=== PATIENT | female | born 1970 | race Caucasian/White ===

== ENCOUNTER 2023-06-29 11:06 | Outpatient (OUT) | payer OTHER, SELFPAY ==
[2023-06-29 12:38] LABS: Alanine Aminotransferase 16 U/L (14-59); Albumin Globulin Ratio 0.7; Albumin Level 2.9 g/dL (3.4-5.0); Alkaline Phosphatase 216 U/L (46-116); Anion Gap 13.3; Aspartate Amino Transferase 16 U/L (15-37); BUN Creatinine Ratio 18.7; Bilirubin Total 0.4 mg/dL (0.2-1.0); Calcium 8.2 mg/dL (8.5-10.1); Carbon Dioxide 24.4 mmol/L (21.0-32.0); Chloride 111 mmol/L (98-107); Chol HDL Ratio 2.2; Cholesterol 98 mg/dL (<=200); Estimated GFR (African America >60 (>=60); Estimated GFR (Non-African Ame 54 (>=60); Globulin 3.9 g/dL; Glucose 82 mg/dL (74-106); HDL Cholesterol 44 mg/dL (40-60); LDL Cholesterol Calculated 45.6 mg/dL; Potassium 3.7 mmol/L (3.5-5.1); Sodium 145 mmol/L (136-145); Total Protein 6.8 g/dL (6.4-8.2); Triglycerides 42 mg/dL (<=150); VLDL CHOLESTEROL 8.4 mg/dL
[2023-06-30 11:10] LABS: PTH, Intact 189 pg/mL (15-65)
== END 2023-06-29 11:07 | disposition home or self-care (01) ==
LOC: LAB 11:09
PROVIDERS: PCP Internal Medicine
DX: Z00.00 Encounter for general adult medical examination without abnormal findings (principal); E21.3 Hyperparathyroidism, unspecified; E55.9 Vitamin D deficiency, unspecified; E56.0 Deficiency of vitamin E; E50.9 Vitamin A deficiency, unspecified
CPT/HCPCS: 36415; 80053; 80061; 82306; 83970; 84446; 84590

== ENCOUNTER 2024-08-29 12:05 | Outpatient (OUT) | payer OTHER, SELFPAY ==
[2024-08-29 12:45] LABS: Basophils Percent Auto 0.6 % (0.2-2.0); Eosinophils Absolute Auto 0.1 10^3/uL (0.0-0.7); Eosinophils Percent Auto 1.8 % (0.9-7.0); Hematocrit 38.5 % (36.0-48.0); Hemoglobin 12.1 g/dL (12.0-16.0); Immature Granulocytes Abs Auto 0.02 10^3/uL (0.00-0.03); Immature Granulocytes Pct Auto 0.3 % (0.0-0.5); Lymphocytes Absolute Auto 2.4 10^3/uL (1.2-3.8); Lymphocytes Percent Auto 39.2 % (20.5-60.0); Mean Corpuscular HGB Conc 31.4 g/dL (29.9-35.2); Mean Corpuscular Volume 85.9 fL (81.0-99.0); Mean Platelet Volume 9.8 fL (9.5-13.5); Monocytes Absolute Auto 0.4 10^3/uL (0.3-0.8); Monocytes Percent Auto 5.8 % (1.7-12.0); Neutrophils Absolute Auto 3.3 10^3/uL (1.4-6.5); Neutrophils Percent Auto 52.3 % (43.0-75.0); Platelet Count 218 10^3/uL (150-450); Red Blood Count 4.48 10^6/uL (4.20-5.40); White Blood Count 6.2 10^3/uL (4.0-11.0)
[2024-08-29 13:19] LABS: Alanine Aminotransferase 16 U/L (14-59); Albumin Globulin Ratio 1.1; Albumin Level 3.5 g/dL (3.4-5.0); Alkaline Phosphatase 195 U/L (46-116); Anion Gap 14.7; Aspartate Amino Transferase 14 U/L (15-37); BUN Creatinine Ratio 23.5; Bilirubin Total 0.4 mg/dL (0.2-1.0); Calcium 8.2 mg/dL (8.5-10.1); Chloride 108 mmol/L (98-107); Cholesterol 116 mg/dL (<=200); Estimated GFR (African America 57 (>=60 mL/min/1.73m^2); Estimated GFR (Non-African Ame 47 (>=60 mL/min/1.73m^2); Globulin 3.2 g/dL; Glucose 86 mg/dL (74-106); HDL Cholesterol 57 mg/dL (40-60); LDL Cholesterol Calculated 49.4 mg/dL; Potassium 3.7 mmol/L (3.5-5.1); Sodium 142 mmol/L (136-145); Total Protein 6.7 g/dL (6.4-8.2); Triglycerides 48 mg/dL (<=150); VLDL CHOLESTEROL 9.6 mg/dL
[2024-08-29 13:31] LABS: Creatinine Urine Random 61.45 mg/dL (20.00-300.00); Microalbum Creatinine Ratio Ur 50.4 mg/g (0.0-29.9); Microalbumin Urine Random 3.1 mg/dL (<=30.0)
[2024-08-29 14:07] LABS: Bilirubin Urine NEGATIVE (NEGATIVE); Blood Urine TRACE-I (NEGATIVE); Clarity Urine CLEAR (CLEAR); Color Urine LT. YELLOW (YELLOW); Glucose Urine UA NEGATIVE (NEGATIVE); Ketones Urine NEGATIVE (NEGATIVE); Leukocyte Esterase Urine MODERATE (NEGATIVE); Nitrite Urine NEGATIVE (NEGATIVE); Protein Urine TRACE mg/dL (NEG/TRACE); Urobilinogen Urine 0.2 EU/dL (0.2-1.0)
[2024-08-29 14:39] LABS: Bacteria Urine MODERATE #/HPF (NONE SEEN); WBC Urine 20-50 #/HPF (NONE SEEN)
[2024-08-29 14:40] LABS: Calcium Oxalate Crystals Urine FEW; Cast Seen? NONE SEEN #/LPF (NONE SEEN); Crystals Seen? Seen #/HPF (None Seen); Mucus Urine TRACE (NONE SEEN); RBC Urine 0-2 #/HPF (0-2); Squamous Epithelial Cell Urine RARE #/LPF (NONE/RARE)
[2024-08-30 09:08] LABS: PTH, Intact 157 pg/mL (15-65)
[2024-08-31 14:10] LABS: Albumin 3.7 g/dL (2.9-4.4); Alpha-1-Globulin 0.2 g/dL (0.0-0.4); Alpha-2-Globulin 0.5 g/dL (0.4-1.0); Free Kappa Lt Chains,S 37.7 mg/L (3.3-19.4); Free Lambda Lt Chains,S 27.2 mg/L (5.7-26.3); Immunoglobulin A, Qn, Serum 238 mg/dL (87-352); Immunoglobulin G, Qn, Serum 1111 mg/dL (586-1602); Immunoglobulin M, Qn, Serum 84 mg/dL (26-217); Kappa/Lambda Ratio,S 1.39 (0.26-1.65); Protein, Total 6.2 g/dL (6.0-8.5)
[2024-09-05 00:11] LABS: Vitamin A, Serum 7.2 ug/dL (20.1-62.0)
== END 2024-08-29 12:06 | disposition home or self-care (01) ==
PROVIDERS: PCP Internal Medicine; Visit Provider Internal Medicine
DX: E21.3 Hyperparathyroidism, unspecified (principal); N17.9 Acute kidney failure, unspecified; D50.8 Other iron deficiency anemias; E55.9 Vitamin D deficiency, unspecified; E56.0 Deficiency of vitamin E; E50.9 Vitamin A deficiency, unspecified; Z13.220 Encounter for screening for lipoid disorders
CPT/HCPCS: 36415; 80053; 80061; 81001; 82043; 82306; 82570; 82784; 83521; 83970; 84155; 84165; 84446; 84590; 85025; 86334

== ENCOUNTER 2025-01-15 12:59 | Outpatient (OUT) | payer OTHER, SELFPAY ==
--- OUTSIDE RECORDS SUMMARY | 2025-01-15 17:15 | XMS_ITS | CCD ---
Author Organization [facility] ion [facility] Care Team Providers Care Polo Coach Name Role Phone DUNCAN, ELLEN M Unavailable Unavailable DUNCAN, ELLEN M Unavailable Unavailable DUNCAN, ELLEN M Unavailable Unavailable DUNCAN, ELLEN M Unavailable Unavailable DUNCAN, ELLEN M Unavailable Unavailable DUNCAN, ELLEN M Unavailable Unavailable FANNING RONI E Unavailable Unavailable FANLOIS, RONI Nancy Unavailable Unavailable Joey Daniel Unavailable Unavailable Unavailable DR JOEY DANIEL Primary Care Unavailable RICARDO VASQUES Admitting Unavailable RICARDO VASQUES Attending Unavailable RICARDO VASQUES Consulting Unavailable JORDEN, DR COOK Admitting Unavailable JORDEN, DR COOK Attending Unavailable JORDEN, DR COOK Primary Care Unavailable JORDEN, DR COOK Admitting Unavailable JORDEN, DR COOK Attending Unavailable JORDEN, DR COOK Primary Care Unavailable JORDEN, DR COOK Consulting Unavailable Joey Daniel Unavailable Tri Awad Unavailable RITESH, Dr. TRI PHIPPS Attending Octavia Daniel, Joey French Primary Care Unavailable RITESH, Dr. TRI PHIPPS Attending Joey Lopez Primary Care Unavailable Jorden, Joey French Primary Care Unavailable RITESH, Dr. TRI PHIPPS Attending Octavia Hassan [facility] Referring Unavailable RITESH, Dr. TRI PHIPPS Admitting Octavia AWAD, Dr. TRI PHIPPS Attending Joey Lopez Primary Care Unavailable UNKNOWN, PCP Referring Unavailable RITESH, Dr. TRI PHIPPS Attending Octavia Daniel, Joey French Primary Care Unavailable Jorden, Joey French Primary Care Unavailable RITESH, Dr. TRI PHIPPS Attending Octavia AWAD, Dr. TRI PHIPPS Attending Luis Angel Doty Referring Unavailable Joey Daniel Primary Care Unavailable MD Joey Daniel Primary Care Provider MD Joey Daniel Referring Provider DO Vinny Huff Attending Provider [phone] Joey Daniel Referring Unavailable Jorden, Jeoy Primary Care Unavailable Murcek, Vinny Attending Unavailable Murcek, Vinny Admitting Unavailable Jorden, Joey Primary Care Unavailable Murcek, Vinny Admitting Unavailable Murcek, Vinny Attending Unavailable Murcek, Vinny Admitting Unavailable Jorden, Joey Primary Care Unavailable Murcek, Vinny Attending Unavailable Jorden, Joey Primary Care Unavailable Murcek, Vinny Admitting Unavailable Murcek, Vinny Attending Unavailable Murgrisel, Vinny Admitting Unavailable Jorden, Joey Primary Care Unavailable Daria, Vinny Attending Unavailable Joey Daniel MD Primary Care Provider Spencer Tyler DO Unavailable Vinny Huff DO W Unavailable Vinny Huff DO W Unavailable [phone] Spencer Tyler DO Unavailable [phone] JOEY DANIEL Referring Unavailable CHARLES DECKER Attending Unavailable DARIA, VINNY Donovan Attending Unavailable DARIA, VINNY W Referring Unavailable MURCEK, VINNY W Attending Unavailable WORKCHARLES TIRADO M Attending Unavailable JOEY DANIEL Referring Unavailable WORKCHARLES TIRADO Attending Unavailable MURCEK, VINNY Donovan Attending Unavailable JOEY DANIEL Attending Unavailable Allergies Allergy Classification Reported Allergen(s) Allergy Type Date of Onset Reaction(s) Facility (20 sources) ferric oxide, saccharated; Translations: [IRON SUCROSE] Drug Allergy 4 [facility] Repository (2 sources) iron sucrose Drug Allergy 4 [facility] Repository (20 sources) Amitriptyline Drug Allergy 3 [facility] (20 sources) oxyCODONE Drug Allergy 3 GI intolerance [facility] Medications Current Medications Medication Drug Class(es) Dates Sig (Normalized) Sig (Original) acetaminophen 325 mg oral tablet (7 sources) Start: 07-23-2021 take 2 tablets by mouth every six hours acetaminophen 325 mg oral tablet ; 2 tab(s) orally every 6 hours, as needed while having post operative pain- Do not take more than 3 grams of Tylenol from all sources in a 24 hour period Quantity: 0 Refills: 0 Ordered: 23-Jul-2021 Perri Hadley Start: 23-Jul-2021 Generic Substitution Allowed Start: 02-13-2021 take 1 capsule by mo uth every six hours Acetaminophen (Tylenol) 325 mg Capsule Active 325 MG PO Q6H February 13, 2021 12:00am acetaminophen 325 mg / HYDROcodone bitartrate 10 mg oral tablet (20 sources) Opioid Agonist Start: 01-05-2025 take 0.5-1 tablets by mouth every six hours for pain HYDROcodone-acetaminophen (Gladstone) 10-325 MG tablet Indications: Chronic bilateral low back pain without sciatica Take 0.5-1 tablets by mouth every 6 (six) hours if needed for severe pain 90 tablet 01/05/2025 Active Start: 07-07-2024 End: 01-04-2025 take 0.5-1 tablets by mouth every six hours for pain HYDROcodone-acetaminophen (Gladstone) 10-325 MG tablet Indications: Chronic bilateral low back pain without sciatica Take 0.5-1 tablets by mouth every 6 (six) hours if needed for severe pain 90 tablet 12/04/2024 01/04/2025 Discontinued (Reorder) Start: 04-13-2024 End: 06-09-2024 take 0.5-1 tablets by mouth every six hours for pain HYDROcodone-acetaminophen (Gladstone) 10-325 MG tablet Indications: Chronic bilateral low back pain without sciatica Take 0.5-1 tablets by mouth every 6 (six) hours if needed for severe pain 90 tablet 06/09/2024 Active Start: 11-12-2023 End: 04-11-2024 take 0.5-1 tablets by mouth every six hours for pain HYDROcodone-acetaminophen (Gladstone) 10-325 MG tablet Indications: Chronic bilateral low back pain without sciatica Take 0.5-1 tablets by mouth every 6 (six) hours if needed for severe pain 90 tablet 03/10/2024 04/11/2024 Discontinued (Reorder) Start: 02-13-2021 End: 09-23-2021 take 1 tablet by mouth every six hours Hydrocodone-Acetaminophen Discontinued 1 - 2 TAB PO Q6H February 13, 2021 12:00am May 24th, 2022 7:39am HYDROcodone-Acet aminophen 5-325 MG Oral Tablet Quantity: 0 Refills: 0 Ordered: 15-May-2021 DO Active acetaminophen-hy drocodone 325 mg-5 mg oral tablet ; 1 tab(s) orally every 6 to 8 hours, As Needed Quantity: 0 Refills: 0 Ordered: 22-Jul-2021 Dilcia Mendoza Generic Substitution Allowed ALPRAZolam 0.5 mg oral tablet (20 sources) Benzodiazepine Start: 03-24-2024 End: 11-05-2024 take 1 tablet by mouth twice daily as needed for anxiety ALPRAZolam (Xanax) 0.5 MG tablet Indications: Generalized anxiety disorder Take 1 tablet (0.5 mg) by mouth 2 (two) times a day as needed for anxiety 60 tablet 2 11/06/2024 Active Start: 10-08-2023 End: 03-10-2024 take 1 tablet by mouth twice daily as needed for anxiety ALPRAZolam (Xanax) 0.25 MG tablet Indications: Generalized anxiety disorder (CMS/HCC) Take 1 tablet (0.25 mg) by mouth 2 (two) times a day as needed for anxiety 60 tablet 03/10/2024 Active ascorbic acid 60 mg / cuprous oxide 2 mg / dl-alpha tocopheryl acetate 30 mg / lutein 6 mg / zinc oxide 15 mg oral capsule (14 sources) Vitamin C Multiple Vitamins-Minerals (Bariatric Multivitamins/Iron) capsule 1 (one) time each day at the same time. Active Calcium (3 sources) Phosphate Binder, Calcium Start: 2023 take 1200 mg by mouth once daily in the morning Calcium Active 1200 MG PO Every morning November 12, 2023 12:00am calcium citrate 950 mg oral tablet (20 sources) Start: 2022 End: 2024 calcium citrate (Calcitrate) 950 (200 Ca) MG tablet Indications: S/P biliopancreatic diversion with duodenal switch Citracal 400 mg calcium and 500 international unit of Vitamin D take 2 tablets TID w/meals 09/12/2024 Active cephalexin 500 mg oral capsule (5 sources) Cephalosporin Antibacterial Start: 2023 End: 2023 take 1 capsule by mouth in the morning, then take 1 capsule by mouth in the evening, then take 1 capsule by mouth at bedtime cephalexin (Keflex) 500 MG capsule Indications: Local skin infection Take 1 capsule (500 mg) by mouth in the morning and 1 capsule (500 mg) in the evening and 1 capsule (500 mg) before bedtime. Do all this for 7 days. 21 capsule 01/11/2024 01/18/2024 Active cholecalciferol 0.125 mg oral tablet (20 sources) Vitamin D Start: 2020 take 1 tablet by mouth once daily in the morning Cholecalciferol (Vitamin D3) (Vitamin D3) 125 mcg (5,000 unit) Tablet Active 250 MCG PO Every morning February 13, 2021 12:00am take 1 capsule by mouth once josé ly cholecalciferol (Vitamin D-3) 250 MCG (09575 UT) capsule Take 1 capsule by mouth Daily Active Vitamin D3 250 M CG (36826 UT) Oral Capsule Quantity: 0 Refills: 0 Ordered: 15-May-2021 DO Active take 1 capsule by mouth every ek cholecalciferol 1250 mcg (50,000 intl units) oral capsule ; 1 cap(s) orally once a week on Fridays Quantity: 0 Refills: 0 Ordered: 22-Jul-2021 Dilcia Mendoza Generic Substitution Allowed cyclobenzaprine hydrochloride 10 mg oral tablet (20 sources) Muscle Relaxant Start: 01-12-2025 cyclobenzaprin e (Flexeril) 10 MG tablet Indications: Chronic bilateral low back pain without sciatica Take 1 tablet (10 mg) by mouth as needed at bedtime for muscle spasms 90 tablet 3 01/12/2025 Active Start: 12-13-2024 cyclobenzaprin e (Flexeril) 10 MG tablet Indications: Chronic bilateral low back pain without sciatica Take 1 tablet (10 mg) by mouth as needed at bedtime for muscle spasms 90 tablet 3 12/13/2024 Active Start: 09-22-2024 cyclobenzaprin e (Flexeril) 10 MG tablet Indications: Chronic bilateral low back pain without sciatica Take 1 tablet (10 mg) by mouth as needed at bedtime for muscle spasms 90 tablet 3 09/22/2024 Active Start: 12-20-2023 End: 06-26-2024 cyclobenzaprine (Flexeril) 1 0 MG tablet Indications: Chronic bilateral low back pain without sciatica Take 1 tablet (10 mg) by mouth as needed at bedtime for muscle spasms 90 tablet 3 06/26/2024 Active Start: 11-12-2023 take 10 mg by mouth once daily Cyclobenzaprine Active 10 MG PO Daily November 12, 2023 12:00am Start: 07-23-2021 take 1 tablet by jayme th three times daily as needed for muscle spasms cyclobenzaprine 10 mg oral tablet ; 1 tab(s) orally 3 times a day, as needed while having muscle spasms Quantity: 30 Refills: 0 Ordered: 23-Jul-2021 Perri Hadley Start: 23-Jul-2021 Generic Substitution Allowed docusate sodium 50 mg / sennosides, [facility] 8.6 mg oral tablet (1 source) Start: 07-23-2021 take 2 tablets by mouth twice daily for pain sennosides-docusate 8.6 mg-50 mg oral tablet ; 2 tab(s) orally 2 times a day -Take while using oxycodone for post operative pain to prevent constipation Quantity: 30 Refills: 0 Ordered: 23-Jul-2021 Perri Hadley Start: 23-Jul-2021 Generic Substitution Allowed Comments: Medication should be taken with plenty of water. Comment on above: Medication should be taken with plenty o f water. DULoxetine 60 mg delayed release oral capsule (20 sources) Serotonin and Norepinephrine Reuptake Inhibitor Start: 02-13-2021 End: 05-25-2024 take 1 capsule by mouth once daily DULoxetine (Cymbalta) [address] capsule Indications: Generalized anxiety disorder Take 1 capsule (60 mg) by mouth Daily 90 capsule 3 05/25/2024 Active Start: 02-13-2021 take 30 mg by mouth once daily in the evening Duloxetine Active 30 MG PO Every evening February 13, 2021 12:00am DULoxetine HCl - 30 MG Oral Capsule Delayed Release Particles Quantity: 0 Refills: 0 Ordered: 15-May-2021 DO Active DULoxetine HCl - 60 MG Oral Capsule Delayed Release Particles Quantity: 0 Refills: 0 Ordered: 15-May-2021 DO Active take 1 tablet by jayme th once daily at bedtime DULoxetine 30 mg oral delayed release capsule ; 1 tab(s) oral once a day at bedtime Quantity: 0 Refills: 0 Ordered: 22-Jul-2021 Dilcia Mendoza Generic Substitution Allowed loratadine 10 mg oral tablet (20 sources) Start: 02-11-2024 End: 05-25-2024 take 1 tablet by mouth once daily as needed loratadine (Claritin) 10 MG tablet Indications: Chronic pansinusitis Take 1 tablet (10 mg) by mouth Daily as needed for allergies 90 tablet 3 05/25/2024 Active Start: 10-22-2023 End: 01-10-2024 take 1 tablet by mouth once daily as needed loratadine (Claritin) 10 MG tablet Indications: Chronic pansinusitis Take 1 tablet (10 mg) by mouth Daily as needed for allergies 90 tablet 3 01/10/2024 Active Multiple Vitamins-Minerals (Bariatric Multivitamins/Iron) capsule (20 sources) Multiple Vitamin s-Minerals (Bariatric Multivitamins/Iron) capsule 1 (one) time each day at the same time. Active Multivitamin preparation (7 sources) Start: 02-13-2021 take 1 tablet by mouth once daily in the morning Multivitamin Active 1 TAB PO Every morning February 13, 2021 12:00am Start: 02-13-2021 take 1 tablet by jayme th once daily Multivitamin Active 1 TAB PO Daily February 13, 2021 12:00am Start: 02-13-2021 take 1 tablet by jayme th once daily Multivitamin Active 1 TAB PO Daily February 12, 2021 11:00pm take 1 tablet by jayme th once daily multivitamin Multiple Vitamins oral tablet ; 1 tab(s) oral once a day Quantity: 0 Refills: 0 Ordered: 11-Jul-2021 Patsy Trent Generic Substitution Allowed nystatin 100 unt/mg topical powder (20 sources) Polyene Antifungal Start: 12-04-2024 nystatin (M ycostatin) 997622 UNIT/GM powder Indications: Rash Apply topically in the morning and before bedtime. 30 g 5 12/04/2024 Active Start: 11-12-2023 Nystatin Activ e 1 APPLIC TOPICAL Twice daily November 12, 2023 12:00am Start: 06-07-2023 End: 01-10-2024 nystatin (Mycostatin) 436145 UNIT/GM powder Indications: Rash Apply topically 2 (two) times a day 30 g 5 01/10/2024 Active oxyCODONE hydrochloride 5 mg oral tablet (1 source) Opioid Agonist Start: 07-23-2021 End: 07-29-2021 take 1 tablet by mouth every six hours as needed oxyCODONE 5 mg oral tablet ; 1 tab(s) orally every 6 hours, As Needed for severe breakthrough post operative painICD 10: G89.18PRN Reason: Pain - Mod (4-6) Quantity: 28 Refills: 0 Ordered: 23-Jul-2021 Perri Hadley Start: 23-Jul-2021 End: 29-Jul-2021 Generic Substitution Allowed predniSONE 10 mg oral tablet (6 sources) Start: 11-20-2024 predniSONE (Deltasone) 10 MG tablet Indications: Rhus dermatitis Day 1-2 take 4 tabs orally by mouth once daily. Day 3-4 take 3 tabs. Day 5-6 take 2 tabs. Day 7-8 take 1 tab. Once daily for 8 days. 20 tablet 11/20/2024 Active pregabalin 100 mg oral capsule (20 sources) Start: 07-07-2024 End: 12-25-2024 take 1 capsule by mouth in the morning, then take 1 capsule by mouth in the evening, then take 1 capsule by mouth at bedtime pregabalin (Lyrica) 100 MG capsule Indications: Chronic bilateral low back pain without sciatica Take 1 capsule (100 mg) by mouth in the morning and 1 capsule (100 mg) in the evening and 1 capsule (100 mg) before bedtime. 90 capsule 5 12/26/2024 Active Start: 02-13-2021 End: 05-25-2024 take 1 capsule by mouth in the morning, then take 1 capsule by mouth in the evening, then take 1 capsule by mouth at bedtime pregabalin (Lyrica) 100 MG capsule Indications: Chronic bilateral low back pain without sciatica Take 1 capsule (100 mg) by mouth in the morning and 1 capsule (100 mg) in the evening and 1 capsule (100 mg) before bedtime. 90 capsule 2 05/25/2024 Active Start: 02-13-2021 take 300 mg by mouth once lauryn y Pregabalin Active 300 MG PO Daily February 13, 2021 12:00am Pregabalin 100 M G Oral Capsule Quantity: 0 Refills: 0 Ordered: 15-May-2021 DO Active vitamin a 64223 unt oral capsule (20 sources) Vitamin A take 1 capsule by mouth once daily in the morning beta carotene (vitamin A) 3 MG (83899 UT) capsule Take 10,000 Units by mouth in the morning. 900 MCG QD. Active Vitamin A,D,E,K (3 sources) Start: 11-12-2023 take 1 tablet by mouth once daily in the morning Vitamin A,D,E,K Active 1 TAB PO Every morning November 12, 2023 12:00am vitamin e 180 mg oral capsule (3 sources) Start: 11-12-2023 take 360 mg by mouth once daily in the morning Vitamin E (Dl, Acetate) Active 360 MG PO Every morning November 12, 2023 12:00am Start: 11-12-2023 take 360 mg by mouth once daily in the morning Vitamin E (Dl, Acetate) Active 360 MG PO Every morning November 12, 2023 12:00am vitamin k1 1 mg oral capsule (20 sources) Warfarin Reversal Agent, Vitamin K Start: 10-11-2023 phytonadione (,Vitam in K,) 1 MG capsule Indications: S/P biliopancreatic diversion with duodenal switch , Vitamin K deficiency She takes 1,920 mcg daily, instructed to add 1 additional Vitamin K to regimen 10/11/2023 Active zinc gluconate 50 mg oral tablet (20 sources) Start: 11-12-2023 zinc gluconate 50 MG tablet Every morning 11/12/2023 Active Completed/Discontinued Medications Medication Drug Class(es) Dates Sig (Normalized) Sig (Original) Adek (6 sources) Start: 02-13-2021 End: 06-20-2021 take 1 tablet by mouth once daily Adek Discontinued 1 TAB PO Daily February 13, 2021 12:00am June 20, 2021 4:07pm Start: 02-13-2021 End: 06-20-2021 take 1 tablet by mouth once daily Adek Discontinued 1 TAB PO Daily February 12, 2021 11:00pm June 20, 2021 3:07pm amitriptyline hydrochloride 25 mg oral tablet (12 sources) Tricyclic Antidepressant Start: 09-23-2021 End: 11-12-2023 take 25 mg by mouth once daily Amitriptyline Discontinued 25 MG PO Daily September 23, 2021 12:00am November 12, 2023 12:40pm Amitriptyline HC l - 25 MG Oral Tablet Quantity: 0 Refills: 0 Ordered: 15-May-2021 DO Active take 1 tablet by mouth once lauryn y amitriptyline 25 mg oral tablet ; 1 tab(s) oral once a day Quantity: 0 Refills: 0 Ordered: 11-Jul-2021 Patsy Trent Generic Substitution Allowed calcium carbonate 1500 mg or al tablet (7 sources) Start: 02-13-2021 End: 06-20-2021 Calcium Carbonate (Calcium 6 00) 600 mg calcium (1,500 mg) Tablet Discontinued 1200 MG PO Three times daily February 13, 2021 12:00am June 20, 2021 4:08pm take 3 tablets by mouth twice da kathrin Oyster Shell Calcium 500 (1250 mg calcium carbonate) oral tablet ; 3 tab(s) orally 2 times a day Quantity: 0 Refills: 0 Ordered: 22-Jul-2021 Dilcia Mendoza Generic Substitution Allowed calcium carbonate 1250 mg / cholecalciferol 600 unt oral tablet (20 sources) Vitamin D Start: 12-06-2023 End: 09-12-2024 take 2 tablets by mouth in the morning, then take 2 tablets by mouth in the evening, then take 2 tablets by mouth at bedtime Calcium+D3 500-15 MG-MCG tablet Take 2 tablets by mouth in the morning and 2 tablets in the evening and 2 tablets before bedtime. 12/06/2023 09/12/2024 Discontinued (Med list cleanup) chlorhexidine gluconate 40 mg/ml medicated liquid soap (3 sources) Start: 05-15-2021 Hibiclens 4 % External Liquid Body wash from neck down night before surgery. Quantity: 1 Refills: 0 Ordered: 15-May-2021 Tri Awad MD Start : 15-May-2021 Active ergocalciferol 1.25 mg oral capsule (20 sources) Provitamin D2 Compound Start: 12-06-2023 End: 05-04-2024 take 1 capsule by mouth every week ergocalciferol (Vitamin D2) 1.25 MG (16180 UT) capsule TAKE 1 CAPSULE BY MOUTH EVERY WEEK FOR 12 WEEKS 12/06/2023 05/04/2024 Discontinued Estradiol-Norethindro ne Acet (7 sources) Estrogen Start: 02-13-2021 End: 11-12-2023 Estradiol-Norethind justice Acet (Mimvey) 1-0.5 mg tablet Discontinued 1 TAB PO Daily February 13, 2021 12:00am November 12, 2023 12:42pm Start: 02-13-2021 Estradiol-Nore thindrone Acet (Mimvey) 1-0.5 mg tablet Active 1 TAB PO Daily February 13, 2021 12:00am Start: 02-13-2021 Estradiol-Nore thindrone Acet (Mimvey) 1-0.5 mg tablet Active 1 TAB PO Daily February 12, 2021 11:00pm take 1 tablet by jayme th once daily estradiol-norethindrone 1 mg-0.5 mg oral tablet ; 1 tab(s) oral once a day Quantity: 0 Refills: 0 Ordered: 11-Jul-2021 Kacey Ford Generic Substitution Allowed Mimvey 1-0.5 MG Oral Tablet (5 sources) Mimvey 1-0.5 MG Oral Tablet Quantity: 0 Refills: 0 Ordered: 15-May-2021 DO Active mupirocin 0.02 mg/mg topical ointment (3 sources) RNA Synthetase Inhibitor Antibacterial Start: 05-15-19 Mupirocin 2 % External Ointment TWICE DAILY: Pea sized amount to both nostrils for 5 days before surgery. Quantity: 1 Refills: 0 Ordered: 15-May-2021 Tri Awad MD Start : 15-May-2021 Active nitrofurantoin, macrocrystals 100 mg oral capsule (1 source) Nitrofuran Antibacterial Start: 07-15-19 take 1 capsule by mouth once daily Nitrofurantoin Macrocrystal 100 MG Oral Capsule TAKE 1 CAPSULE EVERY 12 HOURS DAILY. Quantity: 10 Refills: 0 Ordered: 14-Jul-2021 Tri Awad MD Start : 14-Jul-2021 Active Once Daily Oral Tablet (5 sources) take 1 tablet by mouth once daily Once Daily Oral Tablet Quantity: 0 Refills: 0 Ordered: 15-May-2021 DO Active Oyster Shell Calcium TABS (5 sources) Oyster Shell Jann cium TABS Quantity: 0 Refills: 0 Ordered: 15-May-2021 DO Active Zinc (6 sources) Start: 02-14-20 End: 06-20-19 22 take 50 mg by mouth once daily Zinc Discontinued 50 MG PO Daily February 13, 2021 12:00am June 20, 2021 4:08pm Start: 02-13-2021 End: 06-20-2021 take 50 mg by mouth once daily Zinc Discontinued 50 MG PO Daily February 12, 2021 11:00pm June 20, 2021 3:08pm Problems Active Problems Problem Classification Problem Date Documented Date Episodic/Chronic Allergic reactions (2 sources) Contact dermatitis due to Genus Toxicodendron; Translations: [Unspecified contact dermatitis due to plants, except food] 11-20-2024 Episodic Anxiety disorders (20 sources) Anxiety; Translations: [Anxiety state, unspecified] Onset: 07-31-2021 Resolved: 03-05-2023 02-11-2024 Chronic Complications of surgical procedures or medical care (1 source) Postsurgical malabsorption, not elsewhere classified; Translations: [Postsurgical malabsorption, not elsewhere classified] Onset: 07-24-2021 Chronic Deficiency and other anemia (6 sources) Iron deficiency anemia; Translations: [Iron deficiency anemia, unspecified] 05-19-2023 Episodic Diabetes mellitus with complications (1 source) Type 2 diabetes mellitus with hyperglycemia; Translations: [Type 2 diabetes mellitus with hyperglycemia] Onset: 07-31-2021 Chronic Genitourinary symptoms and ill-defined conditions (3 sources) Dysuria; Translations: [DYSURIA] Onset: 04-30-2021 Episodic Immunizations and screening for infectious disease (2 sources) Needs influenza immunization; Translations: [Encounter for immunization] 05-04-2024 Episodic Miscellaneous mental health disorders (20 sources) Primary insomnia; Translations: [Primary insomnia] Onset: 11-27-2022 11-27-2022 Chronic Nutritional deficiencies (20 sources) Vitamin D deficiency, unspecified; Translations: [Vitamin D deficiency] Onset: 11-29-2020 11-27-2022 Chronic Osteoporosis (20 sources) Osteoporosis; Translations: [Other osteoporosis without current pathological fracture] Onset: 11-27-2022 07-05-2023 Chronic Other and unspecified benign neoplasm (5 sources) Hemangioma; Translations: [Hemangioma of other sites] Episodic Other connective tissue disease (5 sources) Paraparesis; Translations: [Other musculoskeletal symptoms referable to limbs] Episodic Other connective tissue disease (2 sources) History of lumbar fusion; Translations: [Arthrodesis status] Episodic Other diseases of kidney and ureters (2 sources) Hydronephrosis; Translations: [Unspecified hydronephrosis] 05-04-2024 Episodic Other endocrine disorders (20 sources) Hyperparathyroidism; Translations: [Hyperparathyroidism, unspecified] Onset: 11-27-2022 11-27-2022 Chronic Other endocrine disorders (3 sources) Hyperparathyroidism, unspecified; Translations: [HYPERPARATHYROIDISM UNSPECIFIED] Onset: 11-29-2020 Chronic Other endocrine disorders (1 source) Primary hyperparathyroidism; Translations: [Primary hyperparathyroidism] Onset: 12-13-2023 Chronic Other hematologic conditions (5 sources) History of anemia; Translations: [Personal history of diseases of blood and blood-forming organs] Episodic Other nervous system disorders (1 source) Chronic pain syndrome; Translations: [Chronic pain syndrome] Onset: 07-24-2021 Chronic Other nutritional; endocrine; and metabolic disorders (1 source) Obesity, unspecified; Translations: [Obesity, unspecified] Onset: 07-24-2021 Chronic Other nutritional; endocrine; and metabolic disorders (1 source) Body mass index (BMI) 30.0-30.9, adult; Translations: [Body mass index [BMI] 30.0-30.9, adult] Onset: 07-11-2021 Chronic Other screening for suspected conditions (not mental disorders or infectious disease) (4 sources) Patient encounter status; Translations: [Encounter for screening for lipoid disorders] 05-04-2024 Episodic Other upper respiratory infections (2 sources) Chronic pansinusitis; Translations: [Chronic pansinusitis] 01-10-2024 Chronic Residual codes; unclassified (3 sources) H/O: blood transfusion; Translations: [Other specified personal history presenting hazards to health] Episodic Residual codes; unclassified (2 sources) History of parathyroidectomy; Translations: [Other specified postprocedural states] 01-19-2024 Episodic Unclassified (2 sources) L3-5 LAMII WITH FUSION AND L4 & T12 KYPHOPLASTY 06-26-2021 Comment on above: L3-5 LAMII WITH FUSI ON AND L4 & T12 KYPHOPLASTY Unclassified (1 source) S/P L3-5 LAMI WITH FUSION, KYPHOPLASTY AT L4 AND T12 - 2-WK POV 05-15-2021 Comment on above: S/P L3-5 LAMI WITH F USION, KYPHOPLASTY AT L4 AND T12 - 2-WK POV Unclassified (1 source) S/P L3-5 LAMI WITH FUSION AND L4 & T12 KYPHOPLASTY - 2-WK POV 06-26-2021 Comment on above: S/P L3-5 LAMI WITH F USION AND L4 & T12 KYPHOPLASTY - 2-WK POV Unclassified (2 sources) Lumbar stenosis 07-22-2021 Unclassified (1 source) Lumbosacral stenosis with neurogenic claudication 07-22-2021 Unclassified (1 source) Contact with and (suspected) exposure to COVID-19; Translations: [Contact with and (suspected) exposure to COVID-19] Onset: 07-31-2021 Urinary tract infections (4 sources) Urinary tract infection, site not specified; Translations: [Urinary tract infectious disease] Onset: 05-01-2021 Episodic Past or Other Problems Problem Classification Problem Date Documented Da te Episodic/Chronic Calculus of urinary tract (2 sources) Personal history of urinary calculi; Translations: [PERSONAL HISTORY OF URINARY CALCULI] Onset: 05-01-2021 Episodic Complications of surgical procedures or medical care (2 sources) Disruption of external operation (surgical) wound, not elsewhere classified, initial encounter; Translations: [Infection following a procedure, other surgical site, initial encounter] Onset: 07-31-2021 Episodic Deficiency and other anemia (1 source) Iron deficiency anemia, unspecified; Translations: [IRON DEFICIENCY ANEMIA UNSPECIFIED] Onset: 11-29-2020 Episodic Deficiency and other anemia (1 source) Anemia, unspecified; Translations: [Anemia, unspecified] Onset: 07-31-2021 Episodic Deficiency and other anemia (1 source) Other iron deficiency anemias; Translations: [Other iron deficiency anemias] Onset: 07-11-2021 Episodic Deficiency and other anemia (20 sources) Iron deficiency anemia secondary to inadequate dietary iron intake; Translations: [Other iron deficiency anemias] Onset: 11-27-2022 07-02-2023 Episodic E Codes: Adverse effects of medical care (1 source) Other surgical procedures as the cause of abnormal reaction of the patient, or of later complication, without mention of misadventure at the time of the procedure; Translations: [Oth surgical procedures cause abn react/compl, w/o misadvnt] Onset: 07-31-2021 Episodic Malaise and fatigue (1 source) Other fatigue; Translations: [OTHER FATIGUE] Onset: 11-29-2020 Episodic Mood disorders (20 sources) Mood disorders Onset: 12-02-2022 12-02-2022 Nutritional deficiencies (20 sources) Vitamin A deficiency; Translations: [Vitamin A deficiency, unspecified] Onset: 04-09-2014 11-27-2022 Episodic Other aftercare (2 sources) Other senior care (current) drug therapy; Translations: [OTH GROUP MANAGER CURRENT DRUG THERAPY] Onset: 05-01-2021 Episodic Other aftercare (1 source) Encounter for other orthopedic aftercare; Translations: [Encounter for other orthopedic aftercare] Onset: 08-14-2021 Episodic Other and unspecified benign neoplasm (3 sources) Hemangioma of other sites; Translations: [Hemangioma of other sites] Onset: 07-11-2021 Episodic Other connective tissue disease (20 sources) Fibromyalgia; Translations: [Myalgia and myositis, unspecified] Onset: 11-27-2022 11-27-2022 Episodic Other connective tissue disease (4 sources) Arthrodesis status; Translations: [Arthrodesis status] Onset: 08-14-2021 Episodic Other connective tissue disease (1 source) Fibromyalgia; Translations: [Fibromyalgia] Onset: 07-31-2021 Episodic Other connective tissue disease (1 source) Other symptoms and signs involving the musculoskeletal system; Translations: [Oth symptoms and signs involving the musculoskeletal system] Onset: 05-15-2021 Episodic Other diseases of veins and lymphatics (20 sources) Peripheral venous insufficiency; Translations: [Venous insufficiency (chronic) (peripheral)] Onset: 05-08-2015 03-05-2023 Episodic Other gastrointestinal disorders (2 sources) Bariatric surgery status; Translations: [BARIATRIC SURGERY STATUS] Onset: 11-29-2020 Episodic Other hematologic conditions (1 source) Personal history of diseases of the blood and blood-forming organs and certain disorders involving the immune mechanism; Translations: [Prsnl history of dis of the bld/bld-form org/immun mechnsm] Onset: 05-15-2021 Episodic Other liver diseases (4 sources) Abnormal levels of other serum enzymes; Translations: [ABNORMAL LEVELS OTHER SERUM ENZYMES] Onset: 11-19-2020 Episodic Other liver diseases (20 sources) Alkaline phosphatase raised; Translations: [Abnormal levels of other serum enzymes] Onset: 11-27-2022 11-27-2022 Episodic Other nutritional; endocrine; and metabolic disorders (1 source) Abnormal weight gain; Translations: [ABNORMAL WEIGHT GAIN] Onset: 11-29-2020 Episodic Other skin disorders (1 source) Eruption; Translations: [Rash and other nonspecific skin eruption] 01-10-2024 Episodic Residual codes; unclassified (1 source) Flushing; Translations: [FLUSHING] Onset: 11-29-2020 Episodic Residual codes; unclassified (1 source) Other specified postprocedural states; Translations: [Other specified postprocedural states] Onset: 07-24-2021 Episodic Residual codes; unclassified (1 source) Family history of ischemic heart disease and other diseases of the circulatory system; Translations: [Family hx of ischem heart dis and oth dis of the [facility]] Onset: 05-15-2021 Episodic Skin and subcutaneous tissue infections (2 sources) Site-specific infective disorders of skin; Translations: [Local infection of the skin and subcutaneous tissue, unspecified] 01-11-2024 Episodic Spondylosis; intervertebral disc disorders; other back problems (20 sources) Spinal stenosis of lumbar region; Translations: [Spinal stenosis, lumbar region, without neurogenic claudication] Onset: 07-11-2021 Episodic Thyroid disorders (20 sources) Non-toxic uninodular goiter; Translations: [Nontoxic single thyroid nodule] Onset: 01-08-2021 Resolved: 03-12-2023 03-12-2023 Chronic Results Test Name Value Interpretation Reference Range Facility [facility] CMP (CMP) (FOR REMOTE FH C USE)on 01-15-2025 Albumin [Mass/Vol] 3.6 g/dL 3.4 - 5.0 g/dL [facility] ALBUMIN GLOBULIN RATIO 1.1 NO [facility] ALP [Catalytic activity/Vol] 175 U/L High 46 - 116 U/L [facility] ALT [Catalytic activity/Vol] 25 U/L 14 - 59 U/L [facility] Anion gap [Moles/Vol] 12.5 mmol/L NO [facility] AST [Catalytic activity/Vol] 17 U/L 15 - 37 U/L [facility] Bilirubin [Mass/Vol] 0.4 mg/dL 0.2 - 1 .0 mg/dL [facility] Calcium [Mass/Vol] 8 mg/dL Low 8.5 - 10. 1 mg/dL [facility] Chloride [Moles/Vol] 113 mmol/L High 98 - 10 7 mmol/L [facility] CO2 [Moles/Vol] 24.6 mmol/L 21.0 - 32.0 mmol/L [facility] Creatinine [Mass/Vol] 1.07 mg/dL High 0.55 - 1.02 mg/dL [facility] GFR/1.73 sq M.predicted CKD-EPI (S/P/Bld) [Vol rate/Area] >60 >=60 mL/min/1.7 3m 2 [facility] Globulin (S) [Mass/Vol] 3.4 g/dL [facility] Glucose [Mass/Vol] 89 mg/dL 74 - 106 mg/dL [facility] Interpretation and review of laboratory results Abnormal [facility] Potassium [Moles/Vol] 4.1 mmol/L 3.5 - 5.1 mmol/L [facility] Protein [Mass/Vol] 7 g/dL 6.4 - 8.2 g/dL [facility] Sodium [Moles/Vol] 146 mmol/L High 136 - 145 mmol/L [facility] TBH EGFR-NON AF IVORIAN 53 Low >=60 mL/min/1.7 3m 2 [facility] Urea nitrogen [Mass/Vol] 27 mg/dL High 7.0 - 18.0 mg/dL [facility] Urea nitrogen/Creatinine [Mass ratio] 25.2 mg/mg [facility] ALL CBC WITH AUTO DIFFon BASOPHILS ABSOLUTE AUTO 0 [facility] Basophils/100 WBC (Bld) 0.6 % 0.2 - 2.0 % [facility] Eosinophils/100 WBC (Bld) 1.8 % 0.9 - 7.0 % [facility] Erythrocyte distribution width (RBC) [Ratio] 15 % 11.0 - 15.0 % [facility] Hematocrit (Bld) [Volume fraction] 38.5 % 36.0 - 48.0 % [facility] Hemoglobin (Bld) [Mass/Vol] 12.1 g/dL 12.0 - 16.0 g/dL [facility] IMMATURE GRANULOCYTES ABS AUTO 0.02 [facility] Immature granulocytes/100 WBC (Bld) 0.3 % 0.0 - 0.5 % [facility] LYMPHOCYTES ABSOLUTE AUTO 2.4 [facility] Lymphocytes/100 WBC (Bld) 39.2 % 20.5 - 60.0 % [facility] MCH (RBC) [Entitic mass] 27 pg 26.7 - 34.0 pg [facility] MCHC (RBC) [Mass/Vol] 31.4 g/dL 29.9 - 35.2 g/dL [facility] MCV (RBC) [Entitic vol] 85.9 fL 81.0 - 99.0 fL [facility] MONOCYTES ABSOLUTE AUTO 0.4 [facility] Monocytes/100 WBC (Bld) 5.8 % 1.7 - 12.0 % [facility] NEUTROPHILS ABSOLUTE AUTO 3.3 [facility] Neutrophils/100 WBC (Bld) 52.3 % 43.0 - 75.0 % [facility] Platelet mean volume (Bld) [Entitic vol] 9.8 fL 9.5 - 13.5 fL [facility] TBH EO # 0.1 [facility] PLT 218 [facility] RBC 4.48 [facility] WBC 6.2 [facility] US RENAL COMPLETEon 07-12-19 25 US RENAL COMPLETE EXAM: US RENAL COMPL ETE HISTORY: Nephrolithiasis. COMPARISON: Abdomen CT 07/02/2015. TECHNIQUE: Two-dimensional grayscale ultrasound imaging of the kidneys and bladder was performed. FINDINGS: The bladder shows normal anechoic echogenicity. The distended bladder shows no evidence of wall thickening. The bladder volume is 101 mL. Bilateral ureteral jets are visualized. The right kidney measures 11.2 cm in length. Renal cortical echotexture is mildly increased. There is no hydronephrosis. There are no stones. There are no cysts. The left kidney measures 9.3 cm in length. Renal cortical echotexture is mildly increased with cortical thinning. There is no hydronephrosis. There is a 1.1 cm nonobstructing stone at the lower pole. There is a 1.2 cm simple cyst at the midpole. IMPRESSION: 1. Simple left renal cyst. Renal echotexture is mildly increased. Medical renal disease/renal insufficiency is a concern. 2. Nonobstructing left renal stone. 3. Unremarkable urinary bladder. Electronically Signed:Electronically signed by RONI MANNING II, MD, PHD at 12-Jul-2024 08:39:11 AM [facility] Normal Not Available 25-hydroxyvitamin D3 [Mass/V ol]on 04-20-2024 25-hydroxyvitamin D [Mass/Vol] 29.1 ng/mL Low 30.0 - 100.0 ng/mL [facility] Comment on above: Vitamin D deficiency has been defined by the [place] of [employer] and an Endocrine Society practice guideline as a level of serum 25-OH vitamin D less than 20 ng/mL (1,2). The Endocrine Society went on to further define vitamin D insufficiency as a level between 21 and 29 ng/mL (2). 1. IOM ([place] of [employer]). 2010. Dietary reference intakes for calcium and D. [place]: The National Academies Press. 2. Amanda MF, Eliecer GOYAL, Kev GREER, et al. Evaluation, treatment, and prevention of vitamin D deficiency: an Endocrine Society clinical practice guideline. JCEM. 2010; 96(7):1911-30. Comprehensive metabolic pane jose antonio 04-20-2024 Albumin [Mass/Vol] 4.1 g/dL 3.8 - 4.9 g/dL [facility] ALP [Catalytic activity/Vol] 194 U/L High [facility] ALT [Catalytic activity/Vol] 17 U/L [facility] AST [Catalytic activity/Vol] 18 U/L [facility] Bilirubin [Mass/Vol] 0.3 mg/dL 0.0 - 1 .2 mg/dL [facility] Calcium [Mass/Vol] 8.2 mg/dL Low 8.7 - 10. 2 mg/dL [facility] Chloride [Moles/Vol] 113 mmol/L High 96 - 10 6 mmol/L [facility] CO2 [Moles/Vol] 18 mmol/L Low 20 - 29 mmol/L [facility] Creatinine [Mass/Vol] 1.04 mg/dL High 0.57 - 1.00 mg/dL [facility] GFR/1.73 sq M.predicted among non-blacks MDRD (S/P/Bld) [Vol rate/Area] 64 mL/min/{1.73_m2} 59 - PINF mL/min/1.7 3 [facility] Globulin (S) [Mass/Vol] 2.1 g/dL 1.5 - 4.5 g/dL [facility] Glucose [Mass/Vol] 89 mg/dL 70 - 99 mg/dL [facility] Potassium [Moles/Vol] 4.3 mmol/L 3.5 - 5.2 mmol/L [facility] Protein [Mass/Vol] 6.2 g/dL 6.0 - 8.5 g/dL [facility] Sodium [Moles/Vol] 143 mmol/L 134 - 144 mmol/L [facility] Urea nitrogen [Mass/Vol] 23 mg/dL 6 - 24 mg/dL [facility] Urea nitrogen/Creatinine [Mass ratio] 22 mg/mg 9 - 23 [facility] No Panel Informationon 04-20 Interpretation and review of laboratory results Abnormal [facility] Performed at: [address] [place] [id number] Log Cooker: Mark Gomez PhD, Phone: [phone] Specimen Comment: A courtesy copy of this report has been sent to [phone] [facility] Parathyrin.intact and Calciu m panelon 04-20-2024 Parathyrin.intact [Mass/Vol] 88 pg/mL High 15 - 65 pg/mL [facility] Parathyrin.intact [Mass/Vol] Comment [facility] Comment on above: Interpretation Inta ct PTH Calcium (pg/mL) (mg/dL) Normal 15 - 65 8.6 - 10.2 Primary Hyperparathyroidism >65 >10.2 Secondary Hyperparathyroidism >65 <10.2 Non-Parathyroid Hypercalcemia <65 >10.2 Hypoparathyroidism <15 < 8.6 Non-Parathyroid Hypocalcemia 15 - 65 < 8.6 Specimen Status Reporton Clindamycin Disk diffusion (KB) [Susc] Comment [facility] Comment on above: Juan Jose Simon CMP14 D efault Juan Jose Simon CMP14 Default A hand-written panel/profile was received from your office. In accordance with the [facility] Ambiguous Test Code Policy dated October 2002, we have completed your order by using the closest currently or formerly recognized AMA panel. We have assigned Comprehensive Metabolic Panel (14), Test Code #[id number] to this request. If this is not the testing you wished to receive on this specimen, please contact the [facility] Client Inquiry/Technical Services Department to clarify the test order. We appreciate your business. Vitamin Loy 04-20-2024 Phytonadione [Mass/Vol] <0.10 Low 0.10 - 2.20 ng/mL [facility] Test(s) 248868-[id number] in K1 was developed and its performance characteristics determined by [facility] [employer]. It has not been cleared or approved by the Food and Drug Administration. Performed at: 02 - [address] [id number] Log Cooker: Marion Casillas MD, Phone: [phone] Specimen Comment: A courtesy copy of this report has been sent to [phone] [facility] 25-hydroxyvitamin D3 [Mass/V ol]on 01-12-2024 25-hydroxyvitamin D [Mass/Vol] 31.9 ng/mL 30.0 - 100.0 ng/mL [facility] Comment on above: Vitamin D deficiency has been defined by the [place] of [employer] and an Endocrine Society practice guideline as a level of serum 25-OH vitamin D less than 20 ng/mL (1,2). The Endocrine Society went on to further define vitamin D insufficiency as a level between 21 and 29 ng/mL (2). 1. IOM ([place] of [employer]). 2010. Dietary reference intakes for calcium and D. [place]: The National Academies Press. 2. Amanda MF, Eliecer [place], Kev GREER, et al. Evaluation, treatment, and prevention of vitamin D deficiency: an Endocrine Society clinical practice guideline. JCEM. 2010; 96(7):1911-30. ANAon 01-12-2024 Nuclear Ab Ql (S) Negative Negative [facility] Calciumon 01-12-2024 Calcium [Mass/Vol] 8.5 mg/dL Low 8.7 - 10. 2 mg/dL [facility] Immunofixation electrophores anusha 01-12-2024 IgA [Mass/Vol] 261 mg/dL 87 - 352 mg/dL [facility] IgG [Mass/Vol] 1122 mg/dL 586 - 1602 mg/dL [facility] IgM [Mass/Vol] 88 mg/dL 26 - 217 mg/dL [facility] Protein Fractions [Interp] Comment [facility] Comment on above: No monoclonality det ected. No Panel Informationon 01-11 Performed at: 01 - L [address] [id number] Log Cooker: Mark Gomez PhD, Phone: [phone] [facility] Interpretation and review of laboratory results Abnormal [facility] Performed at: 01 - [address] [id number] Log Cooker: Mark Gomez PhD, Phone: [phone] [facility] PTH, intacton 01-12-2024 Parathyrin.intact [Mass/Vol] 117 pg/mL High 15 - 65 pg/mL [facility] Thyroid stimulating immunogl obulins actual/normal (S) [Relative mass conc]on 01-12-2024 Immunoglobulin light chains.kappa.free (S) [Mass/Vol] 46.6 mg/L High 3.3 - 19.4 mg/L [facility] Immunoglobulin light chains.kappa.free/Immu noglobulin light chains.lambda.free (S) [Mass ratio] 1.47 0.26 - 1.65 [facility] Immunoglobulin light chains.lambda.free [Mass/Vol] 31.6 mg/L High 5.7 - 26.3 mg/L [facility] Interpretation and review of laboratory results Abnormal [facility] Calcium [Mass/volume] in Ser um or PlasmaOrdered By: Vinny Huff on 12-13-2023 Calcium [Mass/Vol] 8.5 mg/dL Low 8.6-10.3 [facility] Comment on above: Result Comment: PERF ORMED BY: [place] [address] PATHOLOGIST STONE GRADER AYDE MANJARREZ M.D. Performed By: #### B MP, PTH, TSH3, [id number] #### [address] Parathyrin.intact [Mass/volu me] in Serum or PlasmaOrdered By: Vinny Huff on 12-13-2023 Parathyrin.intact [Mass/Vol] 153.3 pg/mL High [facility] Parathyroid Hormone Intacton 12-13-2023 Parathyroid Hormone Intact 153.3 pg/mL High [facility] Comment on above: Result Comment: PERF ORMED BY: [place] [id number] PATHOLOGIST STONE GRADER AYDE MANJARREZ M.D. Performed By: #### B MP, PTH, TSH3, [id number] #### [address] [address] [facility] Calcium [Mass/volume] in Ser um or PlasmaOrdered By: Vinny Huff on 12-06-2023 Calcium [Mass/Vol] 7.7 mg/dL Low 8.6-10.3 [facility] Comment on above: Order Comment: Comme nt Run stat and call to Dr. Huff Result Comment: PERF ORMED BY: [place] [address] PATHOLOGIST [employer] GRADER AYDE MANJARREZ M.D. Performed By: #### B MP, PTH, TSH3, [id number] #### [place] [id number] [facility] Intact PTH IO Post Induction on 12-06-2023 Intact PTH IO Post Induction 281.8 High 12.0-88.0 [facility] Comment on above: Result Comment: PERF ORMED BY: [place] [id number] PATHOLOGIST STONE GRADER AYDE MANJARREZ M.D. Performed By: #### S TATPTH POSTIND, PTHIO 15, PTHIO 10 MIN #### [place] [id number] [facility] Intact PTH Intraoperative 10 Mon 12-06-2023 Intact PTH Intraoperative 10 M 73.2 pg/mL Normal [facility] Comment on above: Result Comment: PERF ORMED BY: [place] [id number] PATHOLOGIST STONE GRADER AYDE MANJARREZ M.D. Performed By: #### B MP, PTH, TSH3, [id number] #### [address] [address] [place] Intact PTH Intraoperative 10 M 270.0 pg/mL High 12-88 [facility] Comment on above: Result Comment: Resu lts called at 0858 on 12/06/23 PERFORMED BY: [place] [id number] PATHOLOGIST STONE GRADER AYDE MANJARREZ M.D. Performed By: #### S TATPTH POSTIND, PTHIO 15, PTHIO 10 MIN #### [place] [id number] [facility] Intact PTH Intraoperative 15 Mon 12-06-2023 Intact PTH Intraoperative 15 M 68.5 pg/mL Normal [facility] Comment on above: Result Comment: PERF ORMED BY: [place] [id number] PATHOLOGIST STONE GRADER AYDE MANJARREZ M.D. Performed By: #### B MP, PTH, TSH3, [id number] #### [place] [id number] [facility] Intact PTH Intraoperative 15 M 246.8 pg/mL Normal [facility] Comment on above: Result Comment: Resu lts called at 0904 on 12/06/23 PERFORMED BY: [address] [id number] PATHOLOGIST STONE GRADER AYDE MANJARREZ M.D. Performed By: #### B MP, PTH, TSH3, [id number] #### [place] [id number] [facility] Jose Antonio 12-06-2023 L Specimen: [id number] Received: 12/06/23 Status: SOURadha Req Num: [id number] Spec Type: Surgical Subm Dr: Vinny Huff DO Tissues: A Parathyroid Gland (LEFT INFERIOR PARATHYROID AD) B Parathyroid Gland (RT SUPERIOR PARATHYROID RAYO) C Parathyroid Gland (RT INFERIOR PARATHYROID) Procedures: HE/5, Gross/Micro L4/3, FS HE/4, DIFF QWIK/2 Age/ Patient Sex Location Account Attending Physician Deana Croft 53/F [place] [id number] Vinny Huff DO SPEC NUM: [id number] RECD: 12/06/23 STATUS: BEBO QUEEN NUM: [id number] [place]: 12/06/[address]: Vinny Huff DO ENTERED: 12/06/[address] [facility] [address]: SPEC TYPE: Surgical DEPT: S ORDERED: HE/5, Gross/Micro L4/3, FS HE/4, DIFF QWIK/2 ORDERED: HE/5, Gross/Micro L4/3, FS HE/4, DIFF QWIK/2 Pathological Diagnosis A, left inferior parathyroid gland, excision: -Hypertrophic parathyroid gland (1.5 cm), including 1 compact nodule of the pure oxyphil subtype parathyroid cells (0.9 cm) B, right superior parathyroid gland, excision: -Benign parathyroid gland (1 cm) with 50% admixed adipocytes -Incidental 1 larger adjacent portion of benign ectopic thymus tissue without any abnormal epithelial or lymphoid proliferation identified C, right inferior parathyroid gland, partial resection: -Benign parathyroid gland (0.6 cm) with 50% admixed adipocytes Clinical Information A, B- Hyperparathyroid, parathyroid adenoma. Gross Description A. Received fresh for frozen labeled with the patient's name, date of and left inferior parathyroid adenoma is a 0.4 g, 1.5 x 0.7 x 0.4 cm escalante-pink portion of parathyroid. The specimen is bisected. A touch prep is performed. The remainder the specimen is submitted entirely for frozen in A1 FS. Specimen: [id number] Received: 12/06/23 Status: BEBO Perduetanja Num: [id number] Spec Type: Surgical Subm Dr: Vinny Huff DO Tissues: A Parathyroid Gland (LEFT INFERIOR PARATHYROID AD) B Parathyroid Gland (RT SUPERIOR PARATHYROID RAYO) C Parathyroid Gland (RT INFERIOR PARATHYROID) Procedures: HE/5, Gross/Micro L4/3, FS HE/4, DIFF QWIK/2 Patient: Deana Croft [id number] (Continued) Specimen: [id number] Received: 12/06/23 (Continued) Gross Description (Continued) Signed (signature on file) Mike Head MD 12/07/23 1658 Specimen: [id number] Received: 12/06/23 Status: BEBO Queen Num: [id number] Spec Type: Surgical Subm Dr: Vinny Huff DO Tissues: A Parathyroid Gland (LEFT INFERIOR PARATHYROID AD) B Parathyroid Gland (RT SUPERIOR PARATHYROID RAYO) C Parathyroid Gland (RT INFERIOR PARATHYROID) Procedures: HE/5, Gross/Micro L4/3, FS HE/4, DIFF QWIK/2 Patient: Deana Croft [id number] (Continued) Specimen: [id number] Received: 12/06/23 (Continued) Gross Description (Continued) B. Received fresh for frozen labeled with the patient's name, date of and right superior parathyroid adenoma is a 0.2 g, 1.2 x 0.8 x 0.2 cm escalante-pink portion of parathyroid. The specimen is bisected and a touch prep is performed. The remainder of the specimen is submitted entirely for frozen in B1 FS. C. Received fresh labeled with the patient's name, date of and right inferior parathyroid partial resection is a escalante brown, 0.6 x 0.5 x 0.2 cm soft, escalante portion of possible parathyroid tissue. The specimen is bisected revealing an unremarkable surface and entirely submitted in C1. Intraoperative Diagnosis A. Parathyroid gland with focal solid or hypertrophic area. Frozen section read by Dr. Head 12/06/2023 B. Small benign parathyroid gland and one small lymph node. Frozen section read by Dr. Head 12/06/2023 Microscopic Description Microscopic examinations are performed CPT Codes [id number] Specimen: [id number] Received: 12/06/23 Status: BEBO [place] Num: [id number] Spec Type: Surgical Subm Dr: Vinny Huff, Tissues: A Parathyroid Gland (LEFT INFERIOR PARATHYROID AD) B Parathyroid Gland (RT SUPERIOR PARATHYROID RAYO) C Parathyroid Gland (RT INFERIOR PARATHYROID) Procedures: HE/5, Gross/M (more content not included)... Normal [facility] Parathyrin.intact [Mass/volu me] in Serum or PlasmaOrdered By: Vinny Huff on 12-06-2023 Parathyrin.intact [Mass/Vol] 80.3 pg/mL [facility] Parathyrin.intact [Mass/volu me] in Serum or Plasma --10 minutes post excisionOrdered By: Vinny Huff on 12-06-2023 Parathyrin.intact 10 Min post excision [Mass/Vol] 73.2 pg/mL [facility] Parathyrin.intact [Mass/volu me] in Serum or Plasma --post XXX challengeOrdered By: Vinny Huff on 12-06-2023 Parathyrin.intact post Unsp challenge [Mass/Vol] 68.5 pg/mL [facility] Parathyrin.intact [Mass/volu me] in Serum or Plasma --post excisionOrdered By: Vinny Huff on 12-06-2023 Parathyrin.intact post excision [Mass/Vol] 281.8 pg/mL High 12.0-88.0 [facility] Parathyroid Hormone Intacton 12-06-2023 Parathyroid Hormone Intact 80.3 pg/mL Normal [facility] Comment on above: Order Comment: Mey hale Run stat and call to Dr. Huff Result Comment: PERF ORMED BY: [facility] [address] PATHOLOGIST [employer] AYDE MANJARREZ M.D. Performed By: #### B MP, PTH, TSH3, [id number] #### [address] Automated basophil %Ordered By: Vinny Huff on 11-12-2023 Basophils/100 WBC (Bld) 2.1 % Normal . [facility] Comment on above: Performed By: #### B MP, PTH, TSH3, [id number] #### [address] Automated basophil countOrde red By: Vinny Huff on 11-12-2023 Basophils (Bld) [#/Vol] 0.1 10*3/uL Normal 0.0-0.2 [facility] Comment on above: Result Comment: PERF ORMED BY: [place] [address] PATHOLOGIST [employer] AYDE MANJARREZ M.D. Performed By: #### B MP, PTH, TSH3, [id number] #### [address] Automated blood monocyte cou ntOrdered By: Vinny Huff on 11-12-2023 Monocytes (Bld) [#/Vol] 0.3 10*3/uL Normal 0.0-0.8 [facility] Comment on above: Performed By: #### B MP, PTH, TSH3, [id number] #### [address] Automated eosinophil %Ordere d By: Vinny Huff on 11-12-2023 Eosinophils/100 WBC (Bld) 2.1 % Normal . [facility] Comment on above: Performed By: #### B MP, PTH, TSH3, [id number] #### [address] Automated eosinophil countOr dered By: Vinny Huff on 11-12-2023 Eosinophils (Bld) [#/Vol] 0.1 10*3/uL Normal 0.0-0.45 [facility] Comment on above: Performed By: #### B MP, PTH, TSH3, [id number] #### [address] Automated monocyte %Ordered By: Vinny Huff on 11-12-2023 Monocytes/100 WBC (Bld) 5.1 % Normal . [facility] Comment on above: Performed By: #### B MP, PTH, TSH3, [id number] #### [address] Automated neutrophil %Ordere d By: Vinny Huff on 11-12-2023 Neutrophils/100 WBC (Bld) 55.0 % Normal . [facility] Comment on above: Performed By: #### B MP, PTH, TSH3, [id number] #### [address] Basic Metabolic Panelon 10-31 GFR/1.73 sq M.predicted MDRD (S/P/Bld) [Vol rate/Area] mL/min/{1.73_m2} Normal [facility] Comment on above: Performed By: #### B MP, PTH, TSH3, [id number] #### [address] Calcium [Mass/volume] in Ser um or PlasmaOrdered By: Vinny Huff on 11-12-2023 Calcium [Mass/Vol] 8.8 mg/dL Normal 8.6-10.3 [facility] Comment on above: Performed By: #### B MP, PTH, TSH3, [id number] #### [address] Carbon dioxide, total [Moles /volume] in Serum or PlasmaOrdered By: Vinny Huff on 11-12-2023 CO2 [Moles/Vol] 21.9 mmol/L Normal 21.0-31.0 [facility] Comment on above: Performed By: #### B MP, PTH, TSH3, [id number] #### [place] [address] [place] Chloride [Moles/volume] in S dorian or PlasmaOrdered By: Vinny Huff on 11-12-2023 Chloride [Moles/Vol] 114 mmol/L High 98-107 [facility] Comment on above: Performed By: #### B MP, PTH, TSH3, [id number] #### [facility] [address] Complete Blood Count Auto Di ffon 11-12-2023 Mean Corpuscular HGB Conc 31.6 g/dL Low 32.0-35.0 [facility] Comment on above: Performed By: #### B MP, PTH, TSH3, [id number] #### [facility] [address] NRBC% 0.1 /100{WBC} Normal 0-0.5 [facility] Comment on above: Performed By: #### B MP, PTH, TSH3, [id number] #### [address] Creatinine [Mass/volume] in Serum or PlasmaOrdered By: Vinny Huff on 11-12-2023 Creatinine [Mass/Vol] 0.96 mg/dL Normal 0.60-1.20 [facility] Comment on above: Performed By: #### B MP, PTH, TSH3, [id number] #### [facility] [address] ECG 12 lead ECGon 11-12-2023 ECG 12 lead ECG [facility] [place] [address] [place] [address] Electrocardiograph Report Signed Patient: Deana Croft MR#: [id number] : 1970 Acct:[id number] Age/Sex: 53 / F ADM Date: 11/12/23 Loc: Room: [facility] Attending Dr: Vinny Huff DO Ordering [...] change was found Confirmed by MINO LANDIS [facility], KEMAL ([id number]) on 11/12/2023 4:34:53 PM Referred By: Electronically Signed By: KEMAL HERZOG MD [facility] Transcribed By: MUS Signed By Kemal Herzog MD, [facility] 11/12/23 1634 Normal [facility] Erythrocyte distribution wid th [Ratio] by Automated countOrdered By: Vinny Huff on 11-12-2023 Erythrocyte distribution width (RBC) [Ratio] 14.6 % Normal 11.9-15.3 [facility] Comment on above: Performed By: #### B MP, PTH, TSH3, [id number] #### [facility] [address] Erythrocytes [#/volume] in B lood by Automated countOrdered By: Vinny Huff on 11-12-2023 RBC (Bld) [#/Vol] 4.48 10*6/uL Normal 3.60-5.00 [facility] Comment on above: Performed By: #### B MP, PTH, TSH3, [id number] #### [facility] [address] Glucose [Mass/volume] in Ser um or PlasmaOrdered By: Vinny Huff on 11-12-2023 Glucose [Mass/Vol] 76 mg/dL Normal 70-100 [facility] Comment on above: ADA recommended refe rence rangeRandom Glucose Reference Range is dependent on time and content of last meal. Glucose of more than 200 mg/dL in a nonstressed, ambulatory subject supports the diagnosis of Diabetes Mellitus. Result Comment: Rubicon om Glucose Reference Range is dependent on time and content of last meal. Glucose of more than 200 mg/dL in a nonstressed, ambulatory subject supports the diagnosis of Diabetes Mellitus. ADA recommended reference range Performed By: #### B MP, PTH, TSH3, [id number] #### [address] Hematocrit [Volume Fraction] of Blood by Automated countOrdered By: Vinny Huff on 11-12-2023 Hematocrit (Bld) [Volume fraction] 38.6 % Normal 34.0-46.4 [facility] Comment on above: Performed By: #### B MP, PTH, TSH3, [id number] #### [address] Hemoglobin [Mass/volume] in BloodOrdered By: Vinny Huff on 11-12-2023 Hemoglobin (Bld) [Mass/Vol] 12.2 g/dL Normal 11.8-15.4 [facility] Comment on above: Performed By: #### B MP, PTH, TSH3, [id number] #### [address] Leukocytes [#/volume] correc jc for nucleated erythrocytes in Blood by Automated counOrdered By: iVnny Huff on 11-12-2023 WBC corrected for nucl RBC Auto (Bld) [#/Vol] 5.4 10*3/uL 3.8-11.6 [facility] Leukocytes [#/volume] in Blo od by Automated countOrdered By: Vinny Huff on 11-12-2023 WBC (Bld) [#/Vol] 5.4 10*3/uL Normal 3.8-11.6 [facility] Comment on above: Performed By: #### B MP, PTH, TSH3, [id number] #### [address] Lymphocytes [#/volume] in Bl ood by Automated countOrdered By: Vinny Huff on 11-12-2023 Lymphocytes (Bld) [#/Vol] 1.9 10*3/uL Normal 1.00-4.8 [facility] Comment on above: Performed By: #### B MP, PTH, TSH3, [id number] #### [address] Lymphocytes/100 leukocytes i n Blood by Automated countOrdered By: Vinny Huff on 11-12-2023 Lymphocytes/100 WBC (Bld) 35.7 % Normal . [facility] Comment on above: Performed By: #### B MP, PTH, TSH3, [id number] #### [facility] [address] [place] [address] MCH [Entitic mass] by Automa jc countOrdered By: Vinny Huff on 11-12-2023 MCH (RBC) [Entitic mass] 27.2 pg Normal 24.7-34.3 [facility] Comment on above: Performed By: #### B MP, PTH, TSH3, [id number] #### [facility] [address] [place] [address] MCHC Auto (RBC) [Mass/Vol]Or dered By: Vinny Huff on 11-12-2023 MCHC (RBC) [Mass/Vol] 31.6 g/dL Low 32.0-35.0 [facility] MCV [Entitic volume] by Auto mated countOrdered By: Vinny Huff on 11-12-2023 MCV (RBC) [Entitic vol] 86.2 fL Normal 80-100 [facility] Comment on above: Performed By: #### B MP, PTH, TSH3, [id number] #### [address] Neutrophils [#/volume] in Bl ood by Automated countOrdered By: Vinny Huff on 11-12-2023 Neutrophils (Bld) [#/Vol] 3.0 10*3/uL Normal 1.8-7.7 [facility] Comment on above: Performed By: #### B MP, PTH, TSH3, [id number] #### [facility] [address] [place] [address] No Panel InformationOrdered By: Vinny Huff on 11-12-2023 Estimated GFR (CKD-EPI) > 60.0 mL/Min [facility] Creatinine Clearance (Chem N/A [facility] Nucleated erythrocytes [Pres ence] in Blood by Automated countOrdered By: Vinny Huff on 11-12-2023 Nucleated RBC Auto Ql (Bld) 0.1 /100{WBC} 0-0.5 [facility] Parathyrin.intact [Mass/volu me] in Serum or PlasmaOrdered By: Vinny Huff on 11-12-2023 Parathyrin.intact [Mass/Vol] 299.4 pg/mL High [facility] Parathyroid Hormone Intacton 11-12-2023 Parathyroid Hormone Intact 299.4 pg/mL High [facility] Comment on above: Result Comment: PERF ORMED BY: [place] [address] PATHOLOGIST [employer]AD[employer] AYDE MANJARREZ M.D. Performed By: #### B MP, PTH, TSH3, [id number] #### [address] Platelet mean volume [Entiti c volume] in Blood by Automated countOrdered By: Vinny Huff on 11-12-2023 Platelet mean volume (Bld) [Entitic vol] 8.2 fL Normal 6.3-10.7 [facility] Comment on above: Performed By: #### B MP, PTH, TSH3, [id number] #### [address] Platelets [#/volume] in Bloo d by Automated countOrdered By: Vinny Huff on 11-12-2023 Platelets (Bld) [#/Vol] 226 10*3/uL Normal 150-450 [facility] Comment on above: Performed By: #### B MP, PTH, TSH3, [id number] #### [facility] [address] [place] [address] [place] Potassium [Moles/volume] in Serum or PlasmaOrdered By: Vinny Huff on 11-12-2023 Potassium [Moles/Vol] 4.2 mmol/L Normal 3.5-5.1 [facility] Comment on above: Performed By: #### B MP, PTH, TSH3, [id number] #### [address] [place] [address] [place] Serum or plasma anion gap de terminationOrdered By: Vinny Huff on 11-12-2023 Anion gap [Moles/Vol] 10.3 mmol/L Normal 6.0-15.0 [facility] Comment on above: Performed By: #### B MP, PTH, TSH3, [id number] #### [address] Sodium [Moles/volume] in Ser um or PlasmaOrdered By: Vinny Huff on 11-12-2023 Sodium [Moles/Vol] 142 mmol/L Normal 136-145 [facility] Comment on above: Performed By: #### B MP, PTH, TSH3, [id number] #### [address] Thyrotropin [Units/volume] i n Serum or PlasmaOrdered By: Vinny Huff on 11-12-2023 TSH Qn 3.09 m[IU]/L Normal 0.45-5.33 [facility] Comment on above: Performed By: #### B MP, PTH, TSH3, [id number] #### [address] Urea nitrogen [Mass/volume] in Serum or PlasmaOrdered By: Vinny Huff on 11-12-2023 Urea nitrogen [Mass/Vol] 22 mg/dL Normal 7-25 [facility] Comment on above: Performed By: #### B MP, PTH, TSH3, [id number] #### [address] Vitamin D 25 Hydroxy Totalon 11-12-2023 Vitamin D 25 Hydroxy Total 14.4 ng/mL Low 30-100 [facility] Comment on above: Result Comment: IRMA MIN D STATUS 25(OH)VITAMIN D RANGE (ng/mL) Deficient <20 Insufficient 20 to <30 Sufficient 30 to 100 Reference: Amanda MF,Eliecer NC, Kev GREER, et al. Evaluation,treatment, and prevention of vitamin D deficiency; an Endocrine Society clinical practice guideline. JCEM. 2010; 96(7):1911-. PERFORMED BY: [place] [address] PATHOLOGIST [employer]ADER AYDE MANJARREZ M.D. Performed By: #### B MP, PTH, TSH3, [id number] #### [address] Vitamin D+Metabolites [Mass/ volume] in Serum or PlasmaOrdered By: Vinny Huff on 11-12-2023 Vitamin D+Metabolites [Mass/Vol] 14.4 ng/mL Low 30-100 [facility] Comment on above: VITAMIN D STATUS 25( [place])VITAMIN D RANGE (ng/mL) Deficient <20 Insufficient 20 to <30Sufficient 30 to 100Reference: Amanda MF,Eliecer GOYAL, Kev GREER, et al. Evaluation,treatment, and prevention of vitamin D deficiency; an Endocrine Society clinical practice guideline. JCEM. 2010; 96(7):191-. NM*parathyroid SPECT*on 10-02 NM*parathyroid SPECT* [facility] [place] [address] [place] [address] Nuclear Medicine Report Signed Patient: Deana Croft MR#: [id number] : 1970 Acct:[id number] Age/Sex: 53 / F ADM Date: 10/27/23 Loc: [place] Room: [facility] Attending Dr: Vinny Huff DO Copies [...] compared to the prior exam. NM/NM*parathyroid SPECT* IMPRESSION: There is redemonstration of subtle asymmetric persistent radiotracer accumulation along the inferior margin of the left thyroid bed. This is unchanged when compared to the prior exam. A small parathyroid adenoma is suspected. Impression dictated by: Jay Paz M.D.10/27/2023 12:55 PM Dictation Location: [place] [address] Transcribed By: ANGELIA 10/27/23 1255 Dictated By: Jay Paz II, MD 10/27/23 1251 Signed By: 10/27/23 1255 Normal [facility] Alanine aminotransferase [En zymatic activity/volume] in Serum or PlasmaOrdered By: Joey Daniel on 09-28-2023 ALT [Catalytic activity/Vol] 14 U/L Normal 7-52 [facility] Comment on above: Performed By: #### B MP, PTH, TSH3, [id number] #### [facility] [address] [place] [address] [place] Albumin [Mass/volume] in Ser um or Plasma by Bromocresol green (BCG) dye binding methoOrdered By: Joey Daniel on 09-28-2023 Albumin BCG dye [Mass/Vol] 4.2 g/dL 3.5-5.7 [facility] Alkaline phosphatase [Enzyma tic activity/volume] in Serum or PlasmaOrdered By: Joey Daniel on 09-28-2023 ALP [Catalytic activity/Vol] 177 U/L High 34-104 [facility] Comment on above: Result Comment: PERF ORMED BY: [facility] [address] [place] [id number] PATHOLOGIST [employer] AYDE MANJARREZ M.D. Performed By: #### B MP, PTH, TSH3, [id number] #### [facility] [address] [place] [address] [place] Aspartate aminotransferase [ Enzymatic activity/volume] in Serum or PlasmaOrdered By: Joey Daniel on 09-28-2023 AST [Catalytic activity/Vol] 14 U/L Normal 13-39 [facility] Comment on above: Performed By: #### B MP, PTH, TSH3, [id number] #### [address] Bilirubin.total [Mass/volume ] in Serum or PlasmaOrdered By: Joey Daniel on 09-28-2023 Bilirubin [Mass/Vol] 0.4 mg/dL Normal 0.3-1.0 [facility] Comment on above: Performed By: #### B MP, PTH, TSH3, [id number] #### [address] Blood Urea Nitrogenon 2023 Urea nitrogen [Mass/Vol] 37 mg/dL High 7-25 [facility] Comment on above: Performed By: #### C REAT, BUN #### [facility] [address] [place] [address] #### VITK1 #### [facility] , Calciumon 09-28-2023 Calcium [Mass/Vol] 8.9 mg/dL Normal 8.6-10.3 [facility] Comment on above: Performed By: #### B MP, PTH, TSH3, [id number] #### [address] Calcium [Mass/volume] in Ser um or PlasmaOrdered By: Joey Daniel on 09-28-2023 Calcium [Mass/Vol] 8.9 mg/dL Normal 8.6-10.3 [facility] Comment on above: Performed By: #### B MP, PTH, TSH3, [id number] #### [address] Carbon dioxide, total [Moles /volume] in Serum or PlasmaOrdered By: Joey Daniel on 09-28-2023 CO2 [Moles/Vol] 21.1 mmol/L Normal 21.0-31.0 [facility] Comment on above: Performed By: #### B MP, PTH, TSH3, [id number] #### [address] Chloride [Moles/volume] in S dorian or PlasmaOrdered By: Joey Daniel on 09-28-2023 Chloride [Moles/Vol] 111 mmol/L High 98-107 [facility] Comment on above: Performed By: #### B MP, PTH, TSH3, [id number] #### [address] Comprehensive Metabolic Pane jose antonio 09-28-2023 Albumin [Mass/Vol] 4.2 g/dL Normal 3.5-5.7 [facility] Comment on above: Performed By: #### B MP, PTH, TSH3, [id number] #### [address] GFR/1.73 sq M.predicted MDRD (S/P/Bld) [Vol rate/Area] 54.673 mL/min/{1.73_m2} Normal [facility] Comment on above: Performed By: #### B MP, PTH, TSH3, [id number] #### [address] Creatinineon 09-28-2023 Creatinine [Mass/Vol] 1.14 mg/dL Normal 0.60-1.20 [facility] Comment on above: Performed By: #### C REAT, BUN #### [place] [address] [place] #### VITK1 #### [facility] , GFR/1.73 sq M.predicted MDRD (S/P/Bld) [Vol rate/Area] 57.563 mL/min/{1.73_m2} Normal [facility] Comment on above: Result Comment: PERF ORMED BY: [place] [address] PATHOLOGIST [employer]ADER AYDE MANJARREZ M.D. Performed By: #### C REAT, BUN #### [place] [address] [place] #### VITK1 #### [facility] , Creatinine [Mass/volume] in Serum or PlasmaOrdered By: Joey Daniel on 09-28-2023 Creatinine [Mass/Vol] 1.19 mg/dL Normal 0.60-1.20 [facility] Comment on above: Performed By: #### B MP, PTH, TSH3, [id number] #### [facility] [address] Glucose [Mass/volume] in Ser um or PlasmaOrdered By: Joey Daniel on 09-28-2023 Glucose [Mass/Vol] 82 mg/dL Normal 70-100 [facility] Comment on above: ADA recommended refe rence rangeRandom Glucose Reference Range is dependent on time and content of last meal. Glucose of more than 200 mg/dL in a nonstressed, ambulatory subject supports the diagnosis of Diabetes Mellitus. Result Comment: Rubicon om Glucose Reference Range is dependent on time and content of last meal. Glucose of more than 200 mg/dL in a nonstressed, ambulatory subject supports the diagnosis of Diabetes Mellitus. ADA recommended reference range Performed By: #### B MP, PTH, TSH3, [id number] #### [facility] [address] No Panel InformationOrdered By: Joey Daniel on 09-28-2023 Estimated GFR (CKD-EPI) 54.673 mL/Min [facility] Creatinine Clearance (Chem N/A [facility] No Panel InformationOrdered By: Vinny Huff on 09-28-2023 Vitamin K1 Level <0.10 ng/mL Low 0.10-2.20 [facility] Comment on above: This test was develo ped and its performance characteristicsdetermined by [employer]. It has not been cleared orapproved by the Food and Drug Administration.Performed at: [address] [id number] Director: Marion Casillas MD, Phone: [phone] Parathyrin.intact [Mass/volu me] in Serum or PlasmaOrdered By: Vinny Huff on 09-28-2023 Parathyrin.intact [Mass/Vol] 373.6 pg/mL High [facility] Parathyroid Hormone Intacton 09-28-2023 Parathyroid Hormone Intact 373.6 pg/mL High [facility] Comment on above: Result Comment: PERF ORMED BY: [place] [address] PATHOLOGIST [employer]AD[employer] AYDE MANJARREZ M.D. Performed By: #### B MP, PTH, TSH3, [id number] #### [address] Potassium [Moles/volume] in Serum or PlasmaOrdered By: Joey Daniel on 09-28-2023 Potassium [Moles/Vol] 3.9 mmol/L Normal 3.5-5.1 [facility] Comment on above: Performed By: #### B MP, PTH, TSH3, [id number] #### [address] Protein [Mass/volume] in Ser um or PlasmaOrdered By: Joey Daniel on 09-28-2023 Protein [Mass/Vol] 6.5 g/dL Normal 6.4-8.9 [facility] Comment on above: Performed By: #### B MP, PTH, TSH3, [id number] #### [address] Serum globulin measurement b y calculation (mass/volume)Ordered By: Joey Daniel on 09-28-2023 Globulin (S) [Mass/Vol] 2.3 g/dL [facility] Comment on above: Performed By: #### B MP, PTH, TSH3, [id number] #### [address] Serum or plasma albumin/glob ulin mass ratioOrdered By: Joey Daniel on 09-28-2023 Albumin/Globulin [Mass ratio] 1.8 {ratio} [facility] Comment on above: Performed By: #### B MP, PTH, TSH3, [id number] #### [address] Serum or plasma anion gap de terminationOrdered By: Joey Daniel on 09-28-2023 Anion gap [Moles/Vol] 9.8 mmol/L Normal 6.0-15.0 [facility] Comment on above: Performed By: #### B MP, PTH, TSH3, [id number] #### [address] Sodium [Moles/volume] in Ser um or PlasmaOrdered By: Joey Daniel on 09-28-2023 Sodium [Moles/Vol] 138 mmol/L Normal 136-145 [facility] Comment on above: Performed By: #### B MP, PTH, TSH3, [id number] #### [address] Thyrotropin [Units/volume] i n Serum or PlasmaOrdered By: Vinny Huff on 09-28-2023 TSH Qn 2.23 m[IU]/L Normal 0.45-5.33 [facility] Comment on above: Performed By: #### B MP, PTH, TSH3, [id number] #### [address] Urea nitrogen [Mass/volume] in Serum or PlasmaOrdered By: Joey Daniel on 09-28-2023 Urea nitrogen [Mass/Vol] 37 mg/dL High 7-25 [facility] Comment on above: Performed By: #### B MP, PTH, TSH3, [id number] #### [address] Vitamin D 25 Hydroxy Totalon 09-28-2023 Vitamin D 25 Hydroxy Total 35.5 ng/mL Normal 30-100 [facility] Comment on above: Result Comment: IRMA MIN D STATUS 25(OH)VITAMIN D RANGE (ng/mL) Deficient <20 Insufficient 20 to <30 Sufficient 30 to 100 Reference: Amanda RUBIO,Eliecer GOYAL, Kev GREER, et al. Evaluation,treatment, and prevention of vitamin D deficiency; an Endocrine Society clinical practice guideline. JCEM. 2010; 96(7):1911-30. PERFORMED BY: [address] [address] PATHOLOGIST [employer]AD[employer] AYDE MANJARREZ M.D. Performed By: #### B MP, PTH, TSH3, [id number] #### [address] Vitamin D+Metabolites [Mass/ volume] in Serum or PlasmaOrdered By: Vinny Huff on 09-28-2023 Vitamin D+Metabolites [Mass/Vol] 35.5 ng/mL 30-100 [facility] Comment on above: VITAMIN D STATUS 25( [place])VITAMIN D RANGE (ng/mL) Deficient <20 Insufficient 20 to <30Sufficient 30 to 100Reference: Amanda MF,Eliecer NC, Kev GREER, et al. Evaluation,treatment, and prevention of vitamin D deficiency; an Endocrine Society clinical practice guideline. JCEM. 2010; 96(7):1911-30. Vitamin K1on 09-28-2023 Vitamin K1 <0.10 Low 0.10-2.20 [facility] Comment on above: Result Comment: This test was developed and its performance characteristics determined by [employer]. It has not been cleared or approved by the Food and Drug Administration. Performed at: [address] [id number] Log Cooker: Marion Casillas MD, Phone: [phone] PERFORMED BY: [place] [address] PATHOLOGIST [employer]ADER AYDE MANJARREZ M.D. Performed By: #### C REAT, BUN #### [address] #### VITK1 #### [facility] , BN SPINE, LUMBOSACRAL; 2 OR 3 VIEWSon 08-14-2021 BN SPINE, LUMBOSACRAL; 2 OR 3 VIEWS Patient Name: DEANA CROFT STUDY: SPINE, LUMBOSACRAL; 2 OR 3 VIEWS INDICATION: Post op scan Z98.1: S/P lumbar fusion. COMPARISON: July 22, 2021 ACCESSION NUMBER(S): [id number] ORDERING CLINICIAN: TRI AWAD FINDINGS: Status post cement vertebral augmentation across the lytic lesion at L4, unchanged from prior study. Posterior fusion L3-L5 also unchanged. Alignment normal. No evidence of complication. IMPRESSION: Postsurgical changes lumbar spine with L3-L5 fusion and L4 vertebral augmentation, unchanged. Electronically signed by: NELLA MILLIGAN MD Normal [facility] Blood Pressure Cuff Sizeon 0 08-14-2021 Fall risk assessment a) No falls within the last year [facility] Work Phone: Tobacco use status [facility]PH[facility] b) No [facility] Work Phone: Blood Pressure Cuff Size Large [facility] Work Phone: Established Visit (Neurosurg itz)on 08-14-2021 Established Visit (Neurosurgery) Diagnoses/Problems Assessed Hemangioma of spine (228.09) (D18.09) Orders Hemangioma of spine Education Material Provided for Patient; Status:Complete; Done: 14Aug2021 Patient Discussion/Summary 50 year old s/p lumbar decompression/fusion/kyphop lasty doing well postoperatively we will follow her progress and proceed as indicated Chief Complaint Patient is being seen for POV s/p L3/5 posterior instrumented fusion, L4/5 laminectomy, L4 open kyphoplasty on 07/21/21 and a follow-up Neurosurgical visit. History of Present Illness pt reports pain in back and leg have resolved no complaints related to incision Active Problems Problems Anxiety (300.00) (F41.9) Fibromyalgia (729.1) (M79.7) Hemangioma of spine (228.09) (D18.09) Hyperparathyroidism (252.00) (E21.3) Lumbar stenosis (724.02) (M48.061) S/P lumbar fusion (V45.4) (Z98.1) Transfusion history (V15.89) (Z92.89) UTI (urinary tract infection) (599.0) (N39.0) Weakness of both lower extremities (729.89) (R29.898) Past Medical History Problems History of anemia (V12.3) (Z86.2) Surgical History Problems History of Gastric bypass surgery 2001 History of Kyphoplasty 3/21/22 History of Lithotripsy History of Lumbar laminectomy 07/21/21 History of Lumbar vertebral fusion 07/21/21 Family History Mother Family history of hypertension (V17.49) (Z82.49) Father Family history of hypertension (V17.49) (Z82.49) Social History Problems Never smoker No alcohol use No illicit drug use Allergies NoKnown No Known Allergies Recorded By: Rosemary Harvey; 05/15/2021 10:38:36 AM No Known Allergies Recorded By: Darren Fortune; 05/15/2021 10:40:29 AM Current Meds Medication NameInstruction Amitriptyline HCl - 25 MG Oral Tablet DULoxetine HCl - 30 MG Oral Capsule Delayed Release Particles DULoxetine HCl - 60 MG Oral Capsule Delayed Release Particles HYDROcodone-Acetaminophen 5-325 MG Oral Tablet Mimvey 1-0.5 MG Oral Tablet Once Daily Oral Tablet Oyster Shell Calcium TABS Pregabalin 100 MG Oral CapsuleTAKE 1 CAPSULE 3 TIMES DAILY. Vitamin D3 250 MCG (41176 UT) Oral Capsule Vitals Vital Signs Recorded: 14Aug2021 01:45PM Bmscfnts680, RUE, Sitting Fqknixdeb41, RUE, Sitting Blood Pressure Cuff SizeLarge Hlnpnt883 lb BMI Iokqfymmcp87.84 kg/m2 BSA Calculated1.99 Tobacco Useb) No Fall Screeninga) No falls within the last year Physical Exam alert/oriented cranial nerves intact strength/sensation intact incision healing slowly Results/Data xray today shows hardware in position Signatures Electronically signed by : Tri Awad MD; Aug 14 2021 2:46PM EST (Author) [facility] 08-14-2021 XR Lumbar spine AP and Lateral Please click on the link to view the study images Normal [facility] Work Phone: XR Lumbar spine AP and Lateral Normal [facility] Work Phone: RENAL FUNCTION PANELon 08-01 ALBUMIN Canceled [facility] Comment on above: Order Comment: TEST RENAL FUNCTION PANEL WAS CANCELLED, 08/01/2021 04:43 Performed By: #### [facility] #### [facility] [address] [place] [address] ANION GAP Canceled [facility] Comment on above: Order Comment: TEST RENAL FUNCTION PANEL WAS CANCELLED, 08/01/2021 04:43 Performed By: #### U [facility] #### [facility] [address] [place] [address] BICARBONATE Canceled [facility] Comment on above: Order Comment: TEST RENAL FUNCTION PANEL WAS CANCELLED, 08/01/2021 04:43 Performed By: #### U [facility] #### [facility] [address] [place] [address] CALCIUM Canceled [facility] Comment on above: Order Comment: TEST RENAL FUNCTION PANEL WAS CANCELLED, 08/01/2021 04:43 Performed By: #### U RINC #### [facility] [address] [place] [address] CHLORIDE Canceled [facility] Comment on above: Order Comment: TEST RENAL FUNCTION PANEL WAS CANCELLED, 08/01/2021 04:43 Performed By: #### U RINC #### [facility] [address] [place] [address] CREATININE Canceled [facility] Comment on above: Order Comment: TEST RENAL FUNCTION PANEL WAS CANCELLED, 08/01/2021 04:43 Performed By: #### U RINC #### [facility] [address] [place] [address] eGFR FEMALE Canceled [facility] Comment on above: Order Comment: TEST RENAL FUNCTION PANEL WAS CANCELLED, 08/01/2021 04:43 Result Comment: CALC ULATIONS OF ESTIMATED GFR ARE PERFORMED USING THE 2020 CKD-EPI STUDY REFIT EQUATION WITHOUT THE RACE VARIABLE FOR THE IDMS-TRACEABLE CREATININE METHODS. https://jasn.asnjournals.org/content//ASN.50105 26073 Performed By: #### U RINC #### [facility] [address] [place] [address] eGFR MALE Canceled [facility] Comment on above: Order Comment: TEST RENAL FUNCTION PANEL WAS CANCELLED, 08/01/2021 04:43 Result Comment: CALC ULATIONS OF ESTIMATED GFR ARE PERFORMED USING THE 2020 CKD-EPI STUDY REFIT EQUATION WITHOUT THE RACE VARIABLE FOR THE IDMS-TRACEABLE CREATININE METHODS. https://jasn.asnjournals.org/content/ASN.30656 23360 Performed By: #### U RINC #### [facility] [address] [place] [address] GLUCOSE Canceled [facility] Comment on above: Order Comment: TEST RENAL FUNCTION PANEL WAS CANCELLED, 08/01/2021 04:43 Performed By: #### U RINC #### [facility] [address] [place] [address] PHOSPHORUS Canceled [facility] Comment on above: Order Comment: TEST RENAL FUNCTION PANEL WAS CANCELLED, 08/01/2021 04:43 Result Comment: The performance characteristics of phosphorus testing in heparinized plasma have been validated by the individual laboratory site where testing is performed. Testing on heparinized plasma is not approved by the FDA; however, such approval is not necessary. Performed By: #### U RINC #### [facility] [address] [place] [address] POTASSIUM Canceled [facility] Comment on above: Order Comment: TEST RENAL FUNCTION PANEL WAS CANCELLED, 08/01/2021 04:43 Performed By: #### U RINC #### [facility] [address] [place] [address] SODIUM Canceled [facility] Comment on above: Order Comment: TEST RENAL FUNCTION PANEL WAS CANCELLED, 08/01/2021 04:43 Performed By: #### U RINC #### [facility] [address] [place] [address] UREA NITROGEN Canceled [facility] Comment on above: Order Comment: TEST RENAL FUNCTION PANEL WAS CANCELLED, 08/01/2021 04:43 Performed By: #### U RINC #### [facility] [address] [place] [address] Admission Risk Screen - Adul ton 07-31-2021 Admission Risk Screen - Adult Allergies: Allergies: No Known Allergies: Patient Verification: New W ID Band Applied in my Departmentno Type of ID Patient is WearingW wristband, but not applied here Patient Transferred from Other Facility ([facility], [facility],etc)no Patient Identity Verified Bypatient ID Band FULL Name, include Middle, spelling matches patient's ID used for verificationyes ID Band Matches Patient ID used for Verficationyes ID Band MRN Matches EMR MRNyes Visitor Restriction: Coronavirus Visitor Restriction: Reasonable restrictions to in-person visitors will be observed due to current coronavirus pandemic. Travel History: COVID-19 Screening Completedno exposure or symptoms Travel or Exposure Past 30 DaysNO travel to International locations in the past 30 days Ebola AlertFor Ebola-like Symptoms: Isolate Patient and Notify Provider/Tallier For Contact: Notify Provider/Tallier Advance Directive: Advance Directive/DNRno Advance Directive Information Givenpatient/family declined [place] Fall Screen: History of falling (immediate or previous)no (0) Secondary Diagnosisyes (15) Intravenous Therapy/ Heparin/Saline Lockyes (20) Gait/Transferringweak (10) Ambulatory Aidsnone/bedrest/nurse assist (0) Mental Statusoriented to own ability (0) Score: Low risk (<25). Moderate risk (25-44). High risk (>44).45 [place] InterventionsHIGH INTERVENTIONS *Low and Moderate Interventions Plus: * supervised toileting at all times Family Violence Screen: Are you or have you been threatened or abused physically, emotionally, or sexually by anyoneno Do you feel UNSAFE going back to the place where you are livingno Clinical assessment: Are there any apparent signs of injuries/behaviors that could be related to abuse/neglectno Social Service Consult for abuse/neglect needed this visitno Functional Screen: Functional Screen: In the recent/past 2-4 weeks, patient or family have noticedno issues that require a speech/language consult at this time AM-PAC- Basic Mobility/Daily Activity: Patient baseline bedboundno Turning from your back to your side while in a flat bed without using bedrailsa little Moving from lying on your back to sitting on the side of a flat bed without using bedrailsa little Moving to and from bed to chair (including a wheelchair)a little Standing up from a chair using your arms (e.g. wheelchair or bedside chair)a little To walk in hospital rooma little Climbing 3-5 steps with railinga lot Basic Mobility - Total Score17 Putting on and taking off regular lower body clothinga little Bathing (including washing, rinsing, drying)a little Putting on and taking off regular upper body clothinga little Toileting, which includes using toilet, bedpan or urinala little Taking care of personal grooming such as brushing teethnone Eating Mealsnone Daily Activity - Total Score20 Learning Assessment (Patient): Patient is Able to be Assessed for Learningyes Factors Influencing Readiness to Learnmotivation to learn Factors that Impact Ability to Learnvisual problems Devices/Methods Used to Communicatecommunication board, glasses Learning Preferencesindividual instruction; skill demonstration; verbal instruction; written material Cultural Considerationsnone Developmental Considerationsnone Lutheran Considerationsnone Learning Assessment (Other Learner): Other learner availableno Depression Screen: During the past month, have you often been bothered by feeling down, depressed or hopelessno During the past month, have you often had little interest or pleasure in doing thingsno Have you had any thoughts of harming anyone elseno (1) [place] Suicide: Risk Screen Not Applicable/Able to Answerable to be screened In the Past Month: Have you wished you were or could go to sleep and not wake upno In the Past Month: Have you had any actual thoughts of killing yourselfno Lifetime: Have you ever done, started to do, or prepared to do anything to end your lifeno [place] Suicide Risknegative Adult Nutrition Screen: Have you recently lost weight without tryingno Have you been eating poorly because of a decreased appetiteno Malnutrition Screening Tool Score0 Malnutrition Screening Tool RiskMST = 0 or 1 Not at risk. Eating well with little or no weight loss Nutrition Consult needed this visitno Can Patient Participate in Room Serviceyes Patient requires Paper Dishes/Plastic Utensilsno Pain Screen: Pain Scalenumerical 0-10 Pain Scale Educationteaching provided Current Pain Level5 = Moderate Acceptable Pain Level6 = Moderate Expression of Pain (nonverbal)verbalization Chronic Painyes back Usual Pain Rating at Rest5 Usual Pain Rating with Activity6 Spiritual Screen: Are there any cultural, spiritual, gnosticism practices/values/needs that are important for us to knowno CAGE: Is thi (more content not included)... [facility] BD CT ABDOMEN AND PELVIS W I V CONTRASTon 07-31-[address] ABDOMEN AND PELVIS W IV CONTRAST Patient Name: DEANA CROFT STUDY: CT ABDOMEN AND PELVIS W IV CONTRAST; 07/31/2021 4:23 am INDICATION: soft tissue infection, Lie Flat: Yes . COMPARISON: None. ACCESSION NUMBER(S): [id number] ORDERING CLINICIAN: THIEN SAGASTUME TECHNIQUE: Contiguous axial images of the abdomen and pelvis were obtained after the intravenous administration of 90 mL Omnipaque 350 contrast. Coronal and sagittal reformatted images were reconstructed from the axial data. FINDINGS: LOWER CHEST: No acute abnormality. ABDOMEN/PELVIS: ABDOMINAL WALL: Diffuse anasarca. Small fat containing umbilical hernia. No fluid collections in the abdominal wall. Please see below for spinal findings. LIVER: No significant parenchymal abnormality. BILE DUCTS: No significant intrahepatic or extrahepatic dilatation. GALLBLADDER: Surgically absent. PANCREAS: No significant abnormality. SPLEEN: No significant abnormality. ADRENALS: No significant abnormality. KIDNEYS, URETERS, BLADDER: There is moderate left renal atrophy. There is severe left hydronephrosis. There are multiple nonobstructing left renal calculi in the lower pole measuring up to 0.5 cm parent there is thickening and enhancement of the left pelvocaliceal urothelium and left proximal ureteral urothelium. There is a large calculus obstructing the mid left ureter that measures 1.3 cm x 1.3 cm. The right kidney appears within normal limits without hydronephrosis. The urinary bladder appears within normal limits for degree of distention. REPRODUCTIVE ORGANS: Fibroid uterus, notable for 1.4 cm submucosal fibroid. VESSELS: Patent portal and hepatic veins. Normal caliber abdominal aorta. RETROPERITONEUM/LYMPH NODES: No enlarged lymph nodes. BOWEL/MESENTERY/PERITONEUM: 0.6 cm lipoma in the post ileocecal ascending colon and another 1.8 cm lipoma in the distal ascending colon. Postsurgical changes of gastric sleeve, uncomplicated in appearance. Small sliding hiatal hernia noted. No large or small bowel obstruction. No pneumoperitoneum or loculated collections. MUSCULOSKELETAL: There postsurgical changes of an L3-L5 posterior lumbar fusion with transpedicular screws, vertical stabilization rods, and decompressive laminectomy at L3 and L4. Hardware is intact without periprosthetic lucency or fracture. There is vertebroplasty cement within the L4 vertebral body. There is slight posterior contour concavity to the L4 vertebral body. There is no acute fracture of the lumbar spine or sacrum. There is There is a staple line in the midline of the lower back. There are no underlying fluid collections or soft tissue gas along the incision tract. There is mild thickening of the paraspinal muscles at the surgical levels also without evidence of a sizeable fluid collection within the limitations of extensive beam hardening artifact from metallic hardware. IMPRESSION: Large obstructing calculus of the mid left ureter that measures 1.3 cm x 1.3 cm associated with severe left hydroureteronephrosis, delayed excretion by the left kidney indicative of high-grade obstruction and in. Renal function, and the marked thickening and enhancement of the ureteral/pelvocaliceal urothelium representing inflammation and therefore concerning for pyelitis + / - pyonephrosis. Multiple nonobstructing left renal calculi remain. Postsurgical changes of L3-L5 posterior lumbar fusion decompressive laminectomies at L3 and L4, and placement of vertebroplasty cement within the L4 vertebral body. No soft tissue fluid collections along the incision tract or paraspinal muscles are identified. There is mild edema along the incision tract. Multilevel vertebral hemangiomas at T10, T12, and L4. Slight contour bulging posteriorly at L4 may be related to a previous fracture for which was treated with decompression and cement placement. Correlation with previous surgical history recommended. Incidental lipoma is x2 within the ascending colon. Electronically signed by: LUCIA SHIELDS MD [facility] CT Abdomen and Pelvis with I V Contraston 07-31-2021 CT Abdomen and Pelvis W contrast IV [facility] -Ne[facility]rolog -[facility] Work Phone: Consulton 07-31-2021 Consult Service: Service: Wound Care Consult: Consult requested by (Attending Name): Tri Awad Reason: weeping around spine surgery wound; no concern for infection History of Present Illness: HPI: DEANA CROFT is a 50 year old Female Review Family/Social History and ROS: Social History: Smoking Status: never smoker (1) Alcohol Use: denies(1) Drug Use: denies (1) Allergies: No Known Allergies: Assessment: Wound location: Spine size:15x0.1 undermining: n/a tracking: n/a Wound type: surgical incision Wound bed: sutures present Draining: scant serous Periwound skin: intact Recommendation: Irrigate with normal saline or wound cleanser. Apply dry dressing Change every day and as needed Wound location: Left flank size: 7.0x4.0 undermining: n/a tracking: n/a Wound type: partial thickness Wound bed: yellow film Draining: serous Periwound skin: intact Recommendation: Irrigate with normal saline or wound cleanser. Apply xeroform dressing Cover with Mepilex border dressing Change every day and as needed Please review recommendation. If you agree with this recommendation, please enter as a wound orders in EMR. Thank you. While in bed patient should only be on one fitted sheet, one draw sheet, and one chux. Please, do not use brief while patient resting in bed. Elevate heels off the bed surface at all times. Turn and reposition at least every 2 hours. Plan: While inpatient, call with questions or if condition changes. Lavonne HERNANDEZ, RN, CWOCN pager # [phone]/[facility] [place] Consult Status: Consult Order ID: [id number] Electronic Signatures: Lavonne Cantu (DORA) (Signed 31-Jul-2021 13:36) Authored: Service, History of Present Illness, Review Family/Social History and ROS, Allergies, Assessment/Recommendations, Note Completion Last Updated: 31-Jul-2021 13:36 by Lavonne Cantu (DORA) References: 1. Data Referenced From Patient Profile - Adult v2 31-Jul-2021 06:02 [facility] Consult-Plastic Surgeryon Consult-Plastic Surgery Service: Service: Plastic Surgery History of Present Illness: HPI: DEANA CROFT is a 50 year old female with PMH of anxiety, obesity s/p duodenal switch procedure (2000), malabsorption, chronic anemia, fibromyalgia, chronic pain syndrome, neurogenic claudication, T10/T12/L4 vertebral hemangiomas and L4-5 severe stenosis s/p L3-5 posterior instrumented fusion, L4-5 laminectomy and L4 open kyphoplasty on 07/21/21 per neurosurgery (Dr. Awad). Patient endorses noting skin irritation post-operatively just L of her spinal surgical incision site which is associated with constant burning character pain and weeping clear drainage that is occasionally light pink tinged with blood. Patient has left this region CHEPE without dressings and endorses that it frequently becomes stuck to her clothes and bedding, causing her further discomfort. She denies any drainage, worsening pain or dehiscence from her surgical spinal wound site. Additionally denies headache, dizziness, fever, chills, night sweats, malaise, appetite change, chest pain, palpitation, dyspnea, abdominal pain, nausea, vomiting, diarrhea or extremity numbness or weakness. She had a home health care nurse to evaluate her for the first time post-operatively on 07/30 who expressed concern for infection and irregularity at her surgical incision and recommended that she present to the ED for further evaluation. Patient with stable VS on arrival to ED. Laboratory workup notable for elevation in ESR to 42 and CRP to 2.79. Contrast CT abd/pelvis reveals postsurgical changes of L3-L5, posterior lumbar fusion decompressive laminectomies at L3 and L4, and placement of vertebroplasty cement within the L4 vertebral body. There is mild edema along the incision tract without soft tissue fluid collections identified along the incision tract or paraspinal muscles. Patient admitted to neurosurgery service for further evaluation and observation. Plastic Surgery service consulted for evaluation of patient's spinal wounds. PMH: Anxiety, obesity, malabsorption, chronic anemia, fibromyalgia, chronic pain syndrome, neurogenic claudication, L spine T12 and L4 vertebral hemangiomas and L4-5 severe stenosis. PSH: Duodenal switch procedure (2000), L3-5 posterior instrumented fusion, L4-5 laminectomy and L4 open kyphoplasty on 07/21/21 Family hx: Not pertinent to chief complaint. Social hx: Denies EtOH, tobacco or illicit drugs. Allergies: NKDA. Medications: Reviewed in EHR. ROS: All 10 systems were reviewed and are unremarkable except for those mentioned in HPI. Allergies: No Known Allergies: Objective: Physical Exam by System: Constitutional: Well developed, awake/alert/oriented x3, no distress, alert and cooperative. Eyes: EOMI, clear sclera. ENMT: Mucous membranes moist. Tolerating oral secretions without difficulty. Hearing grossly intact b/l. Head/Neck: Neck supple, trachea midline. Respiratory/Thorax: Breathing comfortably on RA with good chest expansion, thorax symmetric. Cardiovascular: Regular rate and rhythm, 2+ equal pulses of the extremities. Gastrointestinal: Nondistended, soft, non-tender. Musculoskeletal: ROM intact, no joint swelling, normal strength. Extremities: Normal extremities, no cyanosis, edema, clubbing. Neurological: Alert and oriented x3. Strength appropriate. No gross neuro deficits. Psychological: Appropriate mood and behavior. Skin: Warm and dry. Healing surgical spinal incisional wound to midline lumber spine which is approximated with ezio. Some mild early surrounding erythema and TTP without warmth, edema, fluctuance or expressible drainage. Wound not overtly dehisced, scarring in with granulating tissue. There is an irregular shaped region of superficial irritation/skin tear laterally at the L flank with exposed dermis and weeping clear drainage. Mild surrounding erythema and significant TTP to this region w/o edema or underlying fluctuance or crepitus. Recent Lab Results: Results: I have reviewed these laboratory results: Venous Full Panel 31-Jul-2021 04:06:00 ResultValue pH, Venous 7.32 L pCO2, Venous 37 L pO2, Venous 26 L SO2, Venous 35 L Bicarbonate, Calculated, Venous 19.1 L Anion Gap Level, Venous 14 Base Excess, Venous -6.4 L Calcium, Ionized Venous 1.27 Chloride Level 110 H Glucose Level, Venous 88 HCT CALCULATED, Venous 27.0 L HGB, Venous 9.1 L Lactate Level, Venous 0.5 OXY HGB, Venous 33.2 L Patient Temperature, Venous 37.0 Potassium Level, Venous 4.5 Sodium Level, Venous 139 Culture, Blood Trending View [id number] 19:41:00 30-Jul-2021 19:13:00 Culture, BloodNEGATIVE TO DATE, CULTURE IN PROGRESS. NEGATIVE TO DATE, CULTURE IN PROGRESS. Coronavirus 2019, Screen Asymptomatic 30-Jul-2021 19:17:00 ResultValue Fluid Source Nasal, Nasopharyngeal Coronavirus 2019,PCR NOT DETECTED Reference Range: Not Detected .This test has (more content not included)... [facility] Daily Progress Note-Plastic Surgeryon 07-31-2021 Daily Progress Note-Plastic Surgery Service: Plastic Surgery Subjective Data: DEANA CROFT is a 50 year old Female who is Hospital Day # 2. Patient resting in bed. Denies fever, chest pain, SOB, abd pain, n/v/d. Patient states abrasion feels much better after xeroform and dressing was applied to the area. Objective Data: Objective Information: T PRBPMAPSpO2 [id number]/7299% Date/Time07/31 8: 8: 8: 8: 8:07 Range(35.7C - 36.6C ) (76 - 112 ) (15 - 18 ) (110 - 135 )/ (71 - 86 ) (97% - 99% ) Pain reported at 07/31 5:44: 5 = Moderate Physical Exam by System: Constitutional: NAD Eyes: EOMI, clear sclera ENMT: Mucous membranes moist Head/Neck: Neck supple, trachea midline Respiratory/Thorax: Breathing comfortably on RA Musculoskeletal: ROM intact, no joint swelling, normal strength Extremities: Normal extremities, no cyanosis, edema, clubbing Neurological: Alert and oriented x3 Psychological: Appropriate mood and behavior Skin: Warm and dry. Spinal incisional wound and superficial irritation/skin tear laterally at the L flank covered with dressings. Recent Lab Results: Results: CBC: 07/30/2021 19:13 \ Hgb / \ 16.2 H / WBC Plt 4.6 275 / Hct \ / 52.8 H \ RBC: 6.12 H MCV: 86 Neutrophil %: 67.3 BMP: 07/30/2021 19:13 NA+ Cl- BUN / 141 111 H 15 / ----- Glucose 84 K+ HCO3- Creat \ 3.4 L 20 L 0.93 \ Calcium : 9.1 Anion Gap : 13 Coagulation: 07/30/2021 19:13 PT / 12.0 / -------< INR < 1.0 PTT\ 35 \ Assessment and Plan: Code Status: Code StatusFull Code Assessment: DEANA CROFT is a 50 year old female with PMH of T10/T12/L4 vertebral hemangiomas and L4-5 severe stenosis s/p L3-5 posterior instrumented fusion, L4-5 laminectomy and L4 open kyphoplasty on 07/21/21 per neurosurgery (Dr. Awad). Postoperatively noted irritation L of her spinal surgical incision site which is associated with constant burning character pain and occasionally blood tinged, weeping clear drainage. Recommended to present to the ED by her [facility] nurse given concern for early spinal wound infection and dehiscence. Patient with stable VS on arrival to ED. Laboratory workup notable for elevation in ESR to 42 and CRP to 2.79. Contrast CT abd/pelvis with postsurgical changes plus mild edema along the incision tract without soft tissue fluid collections. Patient admitted to neurosurgery service for further evaluation and observation. Plastic Surgery service consulted for evaluation of patient's spinal wounds. Plan/Recommendations: #superficial skin tear - No acute intervention from plastic surgery standpoint - Recommend bacitracin to superficial skin tear, cover with Mepilex or Telfa dressing & secure with paper tape - Remainder of care per primary - Follow up with plastic surgery as needed - Signing off Patient and plan discussed with Dr. Michael Stafford PA-C Plastic and Reconstructive Surgery Doc [facility], Pager #[phone], Team phones: [phone] Time spent on the assessment of patient, gathering and interpreting data, review of medical record/patient history, personally reviewing radiographic imaging and formulation of this note 30 minutes. With greater than 50% spent in personal discussion with patient. Electronic Signatures: Keira Stafford (PAC) (Signed 31-Jul-2021 11:08) Authored: Service, Subjective Data, Objective Data, Assessment and Plan, Note Completion Last Updated: 31-Jul-2021 11:08 by Keira Stafford (PAC) Normal [facility] Discharge [id number] Discharge Profile2 Discharge Orders: Anticipated Discharge Date: Anticipated Discharge [id number] Problem List: Prelim Disch Dx: Superficial dehiscence of wound: Catalog Name: Disruption of wound, unspecified, initial encounter Significant Events: gastric bypass: Past Surgical History fibromyalgia: Past Medical History spinal stenosis: Past Medical History anemia: Past Medical History anxiety: Past Medical History Hospital Providers: Provider RoleProvider Name Tri Long Robert L DNAR: Code Status at Discharge: Full Code Activity: activity as tolerated. May shower. May not return to school/work until follow-up visit with Dr Awad Instructions: May not drive until follow-up visit. No pushing, pulling, or lifting objects greater than 10 pounds. Weight-bearing Instructions: weight-bearing as tolerated. Diet: Dietregular Wound Care 1: Wound SiteSuperficial Soft Tissue Skin Tears Wound Typesurgical incision, spine incision Change Dressingdaily Cleanse WithNS or Wound Cleanser ApplyBacitracin Cover WithMepilex Wound Care 2: Wound SiteLeft Flank skin Tear Change Dressingdaily Cleanse WithNS or Wound Cleanser ApplyXeroform guaze Cover WithMepilex Neurosurgery: Patient Instructions: - Call 911 or go directly to the Emergency Room if you have ANY of the following symptoms: 1. Sudden weakness or numbness of the face, arm or leg, especially on one side of the body 2. Sudden difficulty speaking or understanding 3. Sudden trouble seeing in one or both eyes 4. Sudden trouble walking, dizziness, loss of balance or lack of coordination 5. Persistent one-sided headache 6. Loss of conscious or decreased conscious, fainting or seizures. - Always carry a current medication list with you and bring it to ALL healthcare Provider visits. Activity: Activity as tolerated. Pain or discomfort is a guide to cut back on your activity. You may shower immediately after discharge. DO NOT allow direct water spray on your incision. No tub soaking. You may ride in a car with your seat belt on. DO NOT participate in contact sports, yard work, or housework that requires bending or twisting at the waist. This includes: laundry, gardening, mowing lawns, vacuuming, ironing, washing dishes, & loading the dryer or airplane cover maker until cleared by MD. Do NOT bend at waist or twist. Instead, bend at knees to fruit or nut picker objects. Wound Care: Inspect your incision daily for signs of infection: redness, swelling, drainage and foul discharge. Keep surgical incision open to air. DO NOT soak in a tub or swim until incision is completely healed. This may take approximately 4 weeks. DO NOT scrub or rub the incision. You may gently pat the incision. DO NOT pick off scabs, or old blood from the incision site. The incision should heal naturally on its own. Medication Instructions: Remember when taking Acetaminophen to NOT exceed 1000 mg per dose or 4000 mg per day. Taking too much Acetaminophen at one time can damage your liver. Call MD if you have any questions about your medications. To prevent constipation while taking narcotic pain medications, ensure that you drink plenty of water, eat fiber rich foods (a good source is fruit) and increase activity progressively. Call Physician If: Call your Neurosurgeon immediately for any questions or concerns regarding the surgical incision. Call your MD or seek immediate medical attention if you experience any of the following symptoms: 1. Fever of 101.5 (38.5 C) or greater 2. Seizures 3. Nausea with vomiting 4. Double, blurry or loss of vision 5. Confusion 6. Severe headaches that make you nauseous and vomit 7. Drainage or swelling around your incision 8. Trouble speaking 9. Loss of movement or weakness in your arms or legs 10. Trouble controlling your bowels or bladder 11. Fainting or passing out 12. Separation of the incision, or tearing of the incision line 13. Large fluid collection under or around the incision 14. Difficultly swallowing for Cervical patients 15. Swelling, pain, heat or redness in your legs and/or calves. Follow-Up - Neurosurgeon: Physician/Dept/ServiceNeuro surgeon Dr. Tri Awad Scheduled Date/[id number] 13:45 [facility], 5th Floor, [address] [place] [address] Phone [phone] CommentsPlease wear a mask when entering the building. Please arrive 10-15 minutes early, bring photo ID, insurance card, discharge summary, and list of current medications and dosages. If unable to keep this appointment, please call to cancel at least 24 hours prior to appointment. Follow-Up - Neurosurgery [facility]: Physician/Dept/ServiceNeuro surgery at [facility] Dr. Tri Awad Scheduled Date/[id number] 13:00 Phone [phone] [facility] (more content not included)... Normal [facility] Laboratory - Chemistry and C hemistry - challengeon 07-31-2021 Anion gap 4 (BldV) [Moles/Vol] 14 mmol/L 10 - 25 MP-Neurolog [facility] 5[facility] Work Phone: Base excess Calc (BldV) [Moles/Vol] -6.4000 mmol/L below low threshold -2.0 - 3.0 MP-Neurolog [facility] Work Phone: Calcium.ionized (BldV) [Moles/Vol] 1.27 mmol/L See Below -Neurolog y-[facility] Work Phone: Comment on above: Reference Range: 1.1 0 - 1.33 Chloride (BldV) [Moles/Vol] 110 mmol/L above high threshold 98 - 107 -Neurolog y-[facility] Work Phone: CO2 (BldV) [Partial pressure] 37 mm[Hg] below low threshold 41 - 51 MP-Neurolog y-[facility] Work Phone: Glucose [Mass/Vol] 88 mg/dL 74 - 99 -Alejandrina rolog y-[facility] Work Phone: HCO3 (Bld) [Moles/Vol] 19.1 mmol/L below low threshold See Below -Neurolog y-[facility] Work Phone: Comment on above: Reference Range: 22. 0 - 26.0 Lactate (BldV) [Moles/Vol] 0.5 mmol/L 0.4 - 2.0 -Neurolog y-[facility] Work Phone: Oxygen (BldV) [Partial pressure] 26 mm[Hg] below low threshold 35 - 45 -Neurolog y-[facility] Work Phone: Oxyhemoglobin (BldV) [Mass fraction] 33.2 % below low threshold See Below -Neurolog y-[facility] Work Phone: Comment on above: Reference Range: 45. 0 - 75.0 pH (BldV) 7.32 [pH] below low threshold See Below -Neurolog y-[facility] Work Phone: Comment on above: Reference Range: 7.3 3 - 7.43 Potassium (BldV) [Moles/Vol] 4.5 mmol/L 3.5 - 5.3 -Neurolog y-[facility] Work Phone: Sodium (BldV) [Moles/Vol] 139 mmol/L 136 - 145 -Neurolog y-[facility] Work Phone: Laboratory - Hematology and Cell countson 07-31-2021 Hematocrit Est (Bld) [Volume fraction] 27.0 % below low threshold See Below MP-Neurolog y-[facility] Work Phone: Comment on above: Reference Range: 36. 0 - 46.0 Hemoglobin (Bld) [Mass/Vol] 9.1 g/dL below low threshold See Below MP-Neurolog y-[facility] Work Phone: Comment on above: Reference Range: 12. 0 - 16.0 Order Reconciliationon 07-31 Order Reconciliation Page 1 Discharge Reconciliation Document Reconciliation Type: Discharge requested on behalf of Elizbaeth Urias (Advanced Practice Nurse) done by Elizabeth Urias ([facility]) Discharge - Partial Reconciliation: 31-Jul-2021 13:35 by: Elizabeth Urias ([facility]) Discharge - Reconciliation: 31-Jul-2021 14:02 by: Elizabeth Urias (PHARMACY ACCOUNT DIRECTOR-[facility]) Home Medications EnteredHOME MEDICATIONS AT DISCHARGE DateReconciliation Comment/ Additional Information acetaminophen 325 mg oral tablet 2 tab(s) orally every 6 hours, as needed while having post operative pain, - Do not take more than 3 grams of Tylenol from all sources in a 24 hour period 23-Jul-2021 14:21 acetaminophen 325 mg oral tablet 2 tab(s) orally every 6 hours, As needed, Pain - Mild (1-3) 31-Jul-2021 13:31 Discontinued; Discontinue from ORM acetaminophen 325 mg oral tablet reconciled with the existing acetaminophen 325 mg oral tablet acetaminophen-hydrocodone 325 mg-5 mg oral tablet 1 tab(s) orally every 6 to 8 hours, As Needed 22-Jul-2021 10:29 Discontinued; Discontinue from ORM acetaminophen-hydrocodone 325 mg-5 mg oral tablet is not required amitriptyline 25 mg oral tablet 1 tab(s) oral once a day 11-Jul-2021 12:30 amitriptyline 25 mg oral tablet 1 tab(s) oral once a day 11-Jul-2021 12:30 amitriptyline 25 mg oral tablet is continued as amitriptyline 25 mg oral tablet cholecalciferol 1250 mcg (50,000 intl units) oral capsule 1 cap(s) orally once a week on 22-Jul-2021 10:30 cholecalciferol 1250 mcg (50,000 intl units) oral capsule 1 cap(s) orally once a week on 22-Jul-2021 10:30 cholecalciferol 1250 mcg (50,000 intl units) oral capsule is continued as cholecalciferol 1250 mcg (50,000 intl units) oral capsule cyclobenzaprine 10 mg oral tablet 1 tab(s) orally 3 times a day, as needed while having muscle spasms 23-Jul-2021 14:28 Discontinued; Discontinue from ORM cyclobenzaprine 10 mg oral tablet is not required DULoxetine 30 mg oral delayed release capsule 1 tab(s) oral once a day at bedtime 22-Jul-2021 10:31 DULoxetine 30 mg oral delayed release capsule 1 tab(s) oral once a day at bedtime 22-Jul-2021 10:31 DULoxetine 30 mg oral delayed release capsule is continued as DULoxetine 30 mg oral delayed release capsule DULoxetine 60 mg oral delayed release capsule 1 tab(s) oral once a day in the morning 22-Jul-2021 10:32 DULoxetine 60 mg oral delayed release capsule 1 tab(s) oral once a day in the morning 22-Jul-2021 10:32 DULoxetine 60 mg oral delayed release capsule is continued as DULoxetine 60 mg oral delayed release capsule estradiol-norethindrone 1 mg-0.5 mg oral tablet 1 tab(s) oral once a day 11-Jul-2021 13:02 estradiol-norethindrone 1 mg-0.5 mg oral tablet 1 tab(s) oral once a day 11-Jul-2021 13:02 estradiol-norethindrone 1 mg-0.5 mg oral tablet is continued as estradiol-norethindrone 1 mg-0.5 mg oral tablet Lyrica 100 mg oral capsule 1 cap(s) oral 3 times a day 11-Jul-2021 12:30 Lyrica 100 mg oral capsule 1 cap(s) oral 3 times a day 11-Jul-2021 12:30 Lyrica 100 mg oral capsule is continued as Lyrica 100 mg oral capsule multivitamin Multiple Vitamins oral tablet 1 tab(s) oral once a day 11-Jul-2021 12:30 multivitamin Multiple Vitamins oral tablet 1 tab(s) oral once a day 11-Jul-2021 12:30 multivitamin Multiple Vitamins oral tablet is continued as multivitamin Multiple Vitamins oral tablet oxyCODONE 5 mg oral tablet 1 tab(s) orally every 6 hours, As Needed for severe breakthrough post operative pain, ICD 10: G89.18 23-Jul-2021 14:32 Discontinued; Discontinue from ORM oxyCODONE 5 mg oral tablet is not required Oyster Shell Calcium 500 (1250 mg calcium carbonate) oral tablet 3 tab(s) orally 2 times a day 22-Jul-2021 10:33 Oyster Shell Calcium 500 (1250 mg calcium carbonate) oral tablet 3 tab(s) orally 2 times a day 22-Jul-2021 10:33 Oyster Shell Calcium 500 (1250 mg calcium carbonate) oral tablet is continued as Oyster Shell Calcium 500 (1250 mg calcium carbonate) oral tablet sennosides-docusate 8.6 mg-50 mg oral tablet 2 tab(s) orally 2 times a day , -Take while using oxycodone for post operative pain to prevent constipation 23-Jul-2021 14:25 Discontinued; Discontinue from ORM sennosides-docusate 8.6 mg-50 mg oral tablet is not required Current OrdersDateHOME MEDICATIONS AT DISCHARGE DateReconciliation Comment/ Additional Information Acetaminophen Tablet (TYLENOL)DOSE = 650 mg Oral Every 6 Hours, PRN Pain - Mild (1-3) 30-Jul-2021 21:44 acetaminophen 325 mg oral tablet 2 tab(s) orally every 6 hours, As needed, Pain - Mild (1-3) 31-Jul-2021 13:31 Acetaminophen is continued as acetaminophen 325 mg oral tablet Amitriptyline Tablet (ELAVIL)DOSE = 25 mg Oral At Bedtime 30-Jul-2021 18:38 amitriptyline 25 mg oral tablet 1 tab(s) oral once a day Amitriptyline reconciled with the existing amitriptyline 25 mg oral tablet Bacitracin 500 Units/gram Topical OintmentDOSE = 1 application(s) Topical Da (more content not included)... Normal [facility] Patient Profile - Adult v2on 07-31-2021 Patient Profile - Adult v2 Profile: Initial Info: How to be Addressedtammy(1) Spoken Language PreferredEnglish (1) Source of Informationpatient Stated Reason for Admissionwound nurse sent to er Wants Family/Rep Notified of Admissionn/a; family present Notify PCPnotify PCP Informed of Patient Visiting Rightsyes Arrived Fromemergency department Patient Belongingsremains with patient Patient Belongings Remaining with Patientclothing; vision aids; purse/wallet; cell phone/electronics Medications Brought to Hospitalno General Health: Blood Avoidance/Restrictionsnone( 1) Previous Transfusion Reactionno(1) Weight in kg90 kilogram(s) Weight in ryo795.4 pound(s) Weight Methodactual (measured) Scale Typestanding Height in cm167.6 centimeter(s) Height in feet5 feet Height in inches6 inch(es) Height Methodstated BMI (kg/m2)32.04 square meter RSP Based Care: How would you like to participate in your careas much as needed What is the number one concern for you during this hospitalizationinfection What is the most important thing we can do to support you during this hospitalizationtreat the infection Is there anything we need to know to best care for younothing Substance: Smoking Statusnever smoker Alcohol Usedenies Drug Usedenies Health Mgmt: Symptoms/Conditions Managed at Homebehavioral health; chronic pain; endocrine; gastrointestinal; musculoskeletal Are You no (2) Behavioral Health Symptoms/Conditionsanxiety Behavioral Health Managementmanaged Endocrine Symptoms/Conditionshyperpar athyroidism Endocrine Managementmanaged Gastrointestinal Symptoms/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 surgery last wednesday- fusioon and decompression. Musculoskeletal Managementmanaged Chronic Pain Locationfibromyalgia and back pain Chronic Pain Management Strategiesweight management; activity; adequate rest Chronic Pain Managementmanaged Relationship/Environ: Resource/Environmental Concernsnone Primary Source of Support/Comfortparent Lives Withsignificant other Living Arrangementshouse Services Anticipated at Transitionnone Anticipated Transition Tohome Significant IndicatorsComplete Information Review: Allergies, Home Meds and Significant Events have been Reviewed and Verified with Patient/Familyyes ALLERGY, INTOLERANCE, ADVERSE EVENT: Allergies: No Known Allergies: Active Electronic Signatures: Rhonda Meek) (Signed 31-Jul-2021 06:08) Authored: Initial Info, General Health, RSP Based Care, Substance, Health Mgmt, Relationship/Environ, Additional Information Last Updated: 31-Jul-2021 06:08 by Rhonda Meek (RN) References: 1. Data Referenced From Patient Profile - Adult v2 21-Jul-2021 21:12 2. Data Referenced From History and Physical - Neuro-Surgery 30-Jul-2021 18:29 Normal [facility] TYPE + SCREENon 07-31-2021 ABO TYPE O Normal [facility] Comment on above: Performed By: #### U RINC #### [facility] [address] [place] [address] RH TYPE Positive Normal [facility] Comment on above: Performed By: #### U RINC #### [facility] [address] [place] [address] VENOUS FULL PANELon 08-01-19 22 Anion gap [Moles/Vol] 14 mmol/L Normal 10 - 25 [facility] Comment on above: Performed By: #### U RINC #### [facility] [address] [place] [address] BASE EXCESS-BLOOD -6.4 mmol/L Low -2.0 - 3.0 [facility] Comment on above: Performed By: #### U RINC #### [facility] [address] [place] [address] BICARB, CALCULATED 19.1 mmol/L Low 22.0 - 26.0 [facility] Comment on above: Performed By: #### U RINC #### [facility] [address] [place] [address] CALCIUM,IONIZED 1.27 mmol/L Normal 1.10 - 1.33 [facility] Comment on above: Performed By: #### U RINC #### [facility] [address] [place] [address] Chloride [Moles/Vol] 110 mmol/L High 98 - 107 [facility] Comment on above: Performed By: #### U RINC #### [facility] [address] [place] [address] Glucose [Mass/Vol] 88 mg/dL Normal 74 - 99 [facility] Comment on above: Performed By: #### U RINC #### [facility] [address] [place] [address] Hematocrit (Bld) [Volume fraction] 27.0 % Low 36.0 - 46.0 [facility] Comment on above: Performed By: #### U RINC #### [facility] [address] [place] [address] Hemoglobin (Bld) [Mass/Vol] 9.1 g/dL Low 12.0 - 16.0 [facility] Comment on above: Performed By: #### U RINC #### [facility] [address] [place] [address] Lactate [Moles/Vol] 0.5 mmol/L Normal 0.4 - 2.0 [facility] Comment on above: Performed By: #### U RINC #### [facility] [address] [place] [address] OXY HGB 33.2 % Low 45.0 - 75.0 [facility] Comment on above: Performed By: #### U RINC #### [facility] [address] [place] [address] Oxygen (Bld) [Partial pressure] 26 mm[Hg] Low 35 - 45 [facility] Comment on above: Performed By: #### U RINC #### [facility] [address] [place] [address] PATIENT TEMPERATURE 37.0 degrees C Normal [facility] Comment on above: Result Comment: NOTE : PATIENT RESULTS ARE NOT CORRECTED FOR TEMPERATURE. Performed By: #### U RINC #### [facility] [address] [place] [address] PCO2 37 mmHg Low 41 - 51 [facility] Comment on above: Performed By: #### U RINC #### [facility] [address] [place] [address] pH (Bld) 7.32 [pH] Low 7.33 - 7.43 [facility] Comment on above: Performed By: #### U RINC #### [facility] [address] [place] [address] Potassium [Moles/Vol] 4.5 mmol/L Normal 3.5 - 5.3 [facility] Comment on above: Performed By: #### U RINC #### [facility] [address] [place] [address] SO2 35 % Low 45 - 75 [facility] Comment on above: Performed By: #### U RINC #### [facility] [address] [place] [address] Sodium [Moles/Vol] 139 mmol/L Normal 136 - 145 [facility] Comment on above: Performed By: #### U RINC #### [facility] [address] [place] [address] Vital signson 07-31-2021 Oxygen saturation in Venous blood 35 % below low threshold 45 - 75 -[facility] Work Phone: BASIC METABOLIC PANELon 07-03 Anion gap [Moles/Vol] 13 mmol/L Normal 10 - 20 [facility] Comment on above: Performed By: #### U RINC #### [facility] [address] [place] [address] Calcium [Mass/Vol] 9.1 mg/dL Normal 8.6 - 10.6 [facility] Comment on above: Performed By: #### U RINC #### [facility] [address] [place] [address] Chloride [Moles/Vol] 111 mmol/L High 98 - 107 [facility] Comment on above: Performed By: #### U RINC #### [facility] [address] [place] [address] Creatinine [Mass/Vol] 0.93 mg/dL Normal 0.50 - 1.05 [facility] Comment on above: Performed By: #### U RINC #### [facility] [address] [place] [address] GFR/1.73 sq M.predicted among non-blacks MDRD (S/P/Bld) [Vol rate/Area] 74 mL/min/{1.73_m2} Normal >90 [facility] Comment on above: Result Comment: CALC ULATIONS OF ESTIMATED GFR ARE PERFORMED USING THE 2020 CKD-EPI STUDY REFIT EQUATION WITHOUT THE RACE VARIABLE FOR THE IDMS-TRACEABLE CREATININE METHODS. https://jasn.asnjournals.org/content/early//ASN.64940 26331 Performed By: #### U RINC #### [facility] [address] [place] [address] Glucose [Mass/Vol] 84 mg/dL Normal 74 - 99 [facility] Comment on above: Performed By: #### U RINC #### [facility] [address] [place] [address] HCO3 (Bld) [Moles/Vol] 20 mmol/L Low 21 - 32 [facility] Comment on above: Performed By: #### U RINC #### [facility] [address] [place] [address] Potassium [Moles/Vol] 3.4 mmol/L Low 3.5 - 5.3 [facility] Comment on above: Performed By: #### U RINC #### [facility] [address] [place] [address] Sodium [Moles/Vol] 141 mmol/L Normal 136 - 145 [facility] Comment on above: Performed By: #### U RINC #### [facility] [address] [place] [address] Urea nitrogen [Mass/Vol] 15 mg/dL Normal 6 - 23 [facility] Comment on above: Performed By: #### U RINC #### [facility] [address] [place] [address] BLOOD CULTURE, BACTERIALon 0 07-30-2021 BLOOD CULTURE, BACTERIAL PATIENT: DEANA CROFT LOCATION: [place] [address] BILL#: [id number] : 68 AGE: SEX: F ORDERED BY: MATHEUS WALKER SOURCE: Blood COLLECTED: 07/30/21 19:41 ANTIBIOTICS AT SULMA.: RECEIVED : 07/30/21 21:14 SITE: PERIPHERAL R E S U L T S BLOOD CULTURE, BACTERIAL FINAL 08/03/21 21:42 No Growth at 1 days No Growth at 2 days No Growth at 3 days NO GROWTH at 4 days - FINAL REPORT Normal [facility] Comment on above: Performed By: #### U RINC #### [facility] [address] [place] [address] BLOOD CULTURE, BACTERIAL PATIENT: DEANA CROFT LOCATION: [place] [address] BILL#: [id number] : 68 AGE: SEX: F ORDERED BY: MATHEUS WALKER SOURCE: Blood COLLECTED: 07/30/21 19:13 ANTIBIOTICS AT SULMA.: RECEIVED : 07/30/21 20:20 SITE: PERIPHERAL R E S U L T S BLOOD CULTURE, BACTERIAL FINAL 08/03/21 21:42 No Growth at 1 days No Growth at 2 days No Growth at 3 days NO GROWTH at 4 days - FINAL REPORT Normal [facility] Comment on above: Performed By: #### S TAP #### [facility] [address] [place] [address] C Reactive Protein, Serumon 07-30-2021 CRP [Mass/Vol] 2.79 mg/dL Abnormal -Faitho [facility] Work Phone: Comment on above: REF VALUE< 1.00 C-REACTIVE PROTEINon 022 C-REACTIVE PROTEIN 2.79 mg/dL Abnormal [facility] Comment on above: Result Comment: REF VALUE < 1.00 Performed By: #### C BCDF #### [facility] [address] [place] [address] CBC AND DIFFERENTIALon 07-30 % AUTOMATED IMMATURE GRAN 1.1 % High 0.0 - 0.9 [facility] Comment on above: Result Comment: Fernanda ture Granulocyte Count (IG) includes promyelocytes, myelocytes and metamyelocytes but does not include bands. Percent differential counts (%) should be interpreted in the context of the absolute cell counts (cells/L). Performed By: #### U RINC #### [facility] [address] [place] [address] Basophils (Bld) [#/Vol] 0.03 10*3/uL Normal 0.00 - 0.10 [facility] Comment on above: Performed By: #### U RINC #### [facility] [address] [place] [address] Basophils/100 WBC (Bld) 0.6 % Normal 0.0 - 2.0 [facility] Comment on above: Performed By: #### U RINC #### [facility] [address] [place] [address] Eosinophils (Bld) [#/Vol] 0.10 10*3/uL Normal 0.00 - 0.70 [facility] Comment on above: Performed By: #### U RINC #### [facility] [address] [place] [address] Eosinophils/100 WBC (Bld) 2.2 % Normal 0.0 - 6.0 [facility] Comment on above: Performed By: #### U RINC #### [facility] [address] [place] [address] Lymphocytes (Bld) [#/Vol] 1.19 10*3/uL Low 1.20 - 4.80 [facility] Comment on above: Performed By: #### U RINC #### [facility] [address] [place] [address] Lymphocytes/100 WBC (Bld) 25.6 % Normal 13.0 - 44.0 [facility] Comment on above: Performed By: #### U RINC #### [facility] [address] [place] [address] Monocytes (Bld) [#/Vol] 0.15 10*3/uL Normal 0.10 - 1.00 [facility] Comment on above: Performed By: #### U RINC #### [facility] [address] [place] [address] Monocytes/100 WBC (Bld) 3.2 % Normal 2.0 - 10.0 [facility] Comment on above: Performed By: #### U RINC #### [facility] [address] [place] [address] Neutrophils (Bld) [#/Vol] 3.12 10*3/uL Normal 1.20 - 7.70 [facility] Comment on above: Performed By: #### U RINC #### [facility] [address] [place] [address] Neutrophils/100 WBC (Bld) 67.3 % Normal 40.0 - 80.0 [facility] Comment on above: Performed By: #### U RINC #### [facility] [address] [place] [address] Erythrocyte distribution width (RBC) [Ratio] 21.4 % High 11.5 - 14.5 [facility] Comment on above: Performed By: #### U RINC #### [facility] [address] [place] [address] Hematocrit (Bld) [Volume fraction] 52.8 % High 36.0 - 46.0 [facility] Comment on above: Performed By: #### U RINC #### [facility] [address] [place] [address] Hemoglobin (Bld) [Mass/Vol] 16.2 g/dL High 12.0 - 16.0 [facility] Comment on above: Performed By: #### U RINC #### [facility] [address] [place] [address] MCHC (RBC) [Mass/Vol] 30.7 g/dL Low 32.0 - 36.0 [facility] Comment on above: Performed By: #### U RINC #### [facility] [address] [place] [address] MCV (RBC) [Entitic vol] 86 fL Normal 80 - 100 [facility] Comment on above: Performed By: #### U RINC #### [facility] [address] [place] [address] NUCLEATED RBC 0.0 /100 WBC Normal 0.0-0.0 [facility] Comment on above: Performed By: #### U RINC #### [facility] [address] [place] [address] Platelets (Bld) [#/Vol] 275 10*3/uL Normal 150 - 450 [facility] Comment on above: Performed By: #### U RINC #### [facility] [address] [place] [address] RBC 6.12 x10E12/L High 4.00 - 5.20 [facility] Comment on above: Performed By: #### U RINC #### [facility] [address] [place] [address] WBC (Bld) [#/Vol] 4.6 10*3/uL Normal 4.4 - 11.3 [facility] Comment on above: Performed By: #### U RINC #### [facility] [address] [place] [address] COAGULATION SCREENon 022 aPTT Coag (Bld) [Time] 35 s Normal 26 - 39 [facility] Comment on above: Result Comment: THE APTT IS NO LONGER USED FOR MONITORING UNFRACTIONATED HEPARIN THERAPY. FOR MONITORING HEPARIN THERAPY, USE THE HEPARIN ASSAY. Performed By: #### U RINC #### [facility] [address] [place] [address] PT Coag (PPP) [Time] 12.0 s Normal 9.8 - 13.4 [facility] Comment on above: Performed By: #### U RINC #### [facility] [address] [place] [address] PT, INR 1.0 Normal 0.9 - 1.1 [facility] Comment on above: Performed By: #### U RINC #### [facility] [address] [place] [address] CORONAVIRUS 2019, SCREEN ASY MPTOMATICon 07-30-2021 SARS-CoV-2 (COVID-19) RNA LORIE+probe Ql (Unsp spec) Not detected Normal Not Detected [facility] Comment on above: Result Comment: . This test has received FDA Emergency Use Authorization (EUA) and has been verified by [facility] ([facility]). This test is only authorized for the duration of time that circumstances exist to justify the authorization of the emergency use of in vitro diagnostic tests for the detection of SARS-CoV-2 virus and/or diagnosis of COVID-19 infection under section 564(b)(1) of the Act, 21 U.S.C. 360bbb-3(b)(1), unless the authorization is terminated or revoked sooner. [facility] is certified under CLIA-88 as qualified to perform high complexity testing. Testing is performed in the [facility] located at [id number] [place] [address]. SARS-CoV-2/Flu/RSV Multiplex Test: Fact sheet for providers: https://www.fda.gov/media/388688/download Fact sheet for patients: https://www.fda.gov/media/189131/download Performed By: #### C OVSC #### [facility] [address] [place] [address] Lab Specimen Source Nasal, Nasopharyngeal Normal [facility] Comment on above: Performed By: #### C OVSC #### [facility] [id number] [place] [address] Complete Blood Count + Diffe yolis 07-30-2021 Basophils/100 WBC (Bld) 0.6 % 0.0 - 2.0 -Neurolog y-[facility] Work Phone: Erythrocyte distribution width (RBC) [Ratio] 21.4 % above high threshold See Below -Neurolog y-[facility] Work Phone: Comment on above: Reference Range: 11. 5 - 14.5 Hematocrit (Bld) [Volume fraction] 52.8 % above high threshold See Below -Neurolog y-[facility] Work Phone: Comment on above: Reference Range: 36. 0 - 46.0 Hemoglobin (Bld) [Mass/Vol] 16.2 g/dL above high threshold See Below -Neurolog y-[facility] Work Phone: Comment on above: Reference Range: 12. 0 - 16.0 Lymphocytes/100 WBC (Bld) 25.6 % See Below [facility] Work Phone: Comment on above: Reference Range: 13. 0 - 44.0 MCHC (RBC) [Mass/Vol] 30.7 g/dL below low threshold See Below MP-Neurolog -[facility] Work Phone: Comment on above: Reference Range: 32. 0 - 36.0 MCV (RBC) [Entitic vol] 86 fL 80 - 100 MP-Neurolog y-[facility] Work Phone: Monocytes/100 WBC (Bld) 3.2 % 2.0 - 10.0 MP-Neurolog y-[facility] Work Phone: Neutrophils/100 WBC (Bld) 67.3 % See Below MP-Neurolog y-[facility] Work Phone: Comment on above: Reference Range: 40. 0 - 80.0 Platelets (Bld) [#/Vol] 275 10*3/uL 150 - 450 -Neurolog -[facility] Work Phone: RBC (Bld) [#/Vol] 6.12 {x10E12/L} above high threshold See Below -Neurolog -[facility] Work Phone: Comment on above: Reference Range: 4.0 0 - 5.20 WBC (Bld) [#/Vol] 4.6 10*3/uL 4.4 - 11.3 -Alejandrina rolog [facility] Work Phone: Complete Blood Count + Differential 0.03 {x10E9/L} See Below MP-Neurolog [facility] Work Phone: Comment on above: Reference Range: 0.0 0 - 0.10 Complete Blood Count + Differential 0.10 {x10E9/L} See Below MP-Neurolog y-[facility] Work Phone: Comment on above: Reference Range: 0.0 0 - 0.70 Complete Blood Count + Differential 0.15 {x10E9/L} See Below MP-Neurolog y-[facility] Work Phone: Comment on above: Reference Range: 0.1 0 - 1.00 Complete Blood Count + Differential 1.19 {x10E9/L} below low threshold See Below MP-Neurolog y-[facility] Work Phone: Comment on above: Reference Range: 1.2 0 - 4.80 Complete Blood Count + Differential 3.12 {x10E9/L} See Below -[facility] Work Phone: Comment on above: Reference Range: 1.2 0 - 7.70 Complete Blood Count + Differential 2.2 % 0.0 - 6.0 [facility] Work Phone: Complete Blood Count + Differential 1.1 % above high threshold 0.0 - 0.[address] Work Phone: Comment on above: Immature Granulocyte Count (IG) includes promyelocytes, myelocytes and metamyelocytes but does not include bands. Percent differential counts (%) should be interpreted in the context of the absolute cell counts (cells/L). Complete Blood Count + Differential 0.0 {/100_WBC} 0.0-0.0 [facility] Work Phone: Coronavirus 2019 RNA by PCR, Screening Asymptomticon 07-30-2021 Coronavirus 2019 RNA by PCR, Screening Asymptomtic Not detected Normal See Below [address] Work Phone: Comment on above: SOURCE: Nasal, Nasop haryngealReference Range: Not Detected.This test has received FDA Emergency Use Authorization (EUA) and has been verified by [facility] ([facility]). This test is only authorized for the duration of time that circumstances exist to justify the authorization of the emergency use of in vitro diagnostic tests for the detection of SARS-CoV-2 virus and/or diagnosis of COVID-19 infection under section 564(b)(1) of the Act, 21 U.S.C. 360bbb-3(b)(1), unless the authorization is terminated or revoked sooner. [facility] is certified under CLIA-88 as qualified to perform high complexity testing. Testing is performed in the [facility] located at [address] [place] [address].SARS-CoV-2/Flu/RSV Multiplex Test: Fact sheet for providers: https://www.fda.gov/media/386234/downloadFact sheet for patients: https://www.fda.gov/media/361816/download Covid 19 Resultson 2 SARS-CoV-2 (COVID-19) RNA LROIE+probe Ql (Unsp spec) NEGATIVE COVID-19 Test Coronaviruses are common world-wide and are the cause of many common colds. SARS-COV2 is a new coronavirus that began circulating worldwide in 2019 so we are calling it COVID-19. It has been estimated that four out of five patients with COVID-19 will recover at home without the need for medical attention. Symptoms of COVID-19 may include cough, fever, shortness of breath, loss of taste or smell and other flu-like symptoms including chills, sore muscles, sore throat, and headache. Severe illness is more common in older people and people with other health problems such as high blood pressure, obesity, and immune system problems. If the test is positive, you have COVID-19. You will be contacted by the ordering physicians office and instructed to remain on home isolation, in accordance with CDC guidelines. You may also be contacted by the [facility] to see if any of your close contacts may have been exposed to the virus and need to quarantine. If the test is negative, you likely do not have COVID-19 at this time, but you still may have a different illness that can spread to other people (like Influenza, or the Flu) and could still be at risk for getting COVID-19. We recommend that you stay away from other people to limit the spread of illness until your symptoms are improving and you are fever-free for 24 hours without the use of fever lowering medications such as acetaminophen or ibuprofen. No test is 100% accurate so if you are still concerned you may have COVID-19, talk to your doctor about the need to continue to stay away from others. Medicines Unless your provider told you not to use the following: Acetaminophen (Tylenol and others) is generally safe. Anti-inflammatory medications, such as Ibuprofen (Advil or Motrin) or Naproxen (Aleve) can also be used. Fqpm-tgt-yeqhwgr cough and cold medicines can be used according to the instructions on the package. Some wbmo-rpv-hrphwlh medicines also contain acetaminophen. Make sure you are not taking more than your recommended dose. For those not hospitalized, there is no specific treatment available for this illness. Antibiotics do not treat Coronaviruses. Follow-Up Follow up with your doctor by scheduling a virtual visit or consider follow-up at one of our urgent care fever clinics. If you are having difficulty breathing, or are very weak and having difficulty standing, this is a medical emergency. Call 911 or have someone take you to the nearest emergency room immediately. If possible, wear a facemask. Additional guidance from the CDC for patients who tested POSITIVE for COVID-19 How to isolate: Isolate yourself in a specific room at home and limit your contact with others. Use a separate bathroom from other members of the household, when possible. Leave home only to get essential medical care. Do not go to work, school or public areas. Avoid using public transportation, ride-sharing, or taxis. Restrict contact with pets and other animals. If you must care for your pet or be around animals while you are sick, wash your hands before and after your interaction and wear a facemask. Make sure that shared spaces in the home have good airflow, such as by an air conditioner or an opened window, weather permitting. Personal Hygiene Procedures: Wear a face mask when in the same room as other people or pets. If a face mask interferes with your breathing, others should wear a mask when sharing space with you. Frequent hand-washing: wash your hands with soap and water for at least 20 seconds. If soap and water are not available, use alcohol-based hand library information technician. Avoid touching your eyes, nose, and mouth with unwashed hands. Household Hygiene Procedures: Avoid sharing personal household items such as dishes, glassware, cups, eating utensils, towels or bedding with other people or pets in your home. After use, these items should be washed with soap and hot water. Disinfect all high-touch surfaces every day with antibacterial cleaning solutions such as Lysol wipes, bleach, cleansers, etc. High-touch surfaces include tabletops, doorknobs, bathroom fixtures, toilets, phones, keyboards, tablets and bedside tables. Immediately clean any surfaces that may have blood, poop or body fluids on them, using antibacterial cleaning solutions such as Lysol wipes, bleach, cleansers, etc. If clothing or bedding come into contact with blood, poop or body fluids, they should be washed immediately. Follow the directions on the laundry detergent and clothing labels but hot water is recommended when possible. Stopping home isolation precautions: If possible, consult your doctor before stopping home isolation precautions. According to the CDC, you can discontinue home isolation precautions when you have met both of these criteria: Your fever and respiratory symptoms have been gone for 24 desi (more content not included)... Normal [facility] Cult, Bloodon 07-30-2021 Bacteria identified Cx Nom (Bld) MP-Neurolog y-[facility] Work Phone: Bacteria identified Cx Nom (Bld) MP-Neurolog y-[facility] Work Phone: Laboratory - Blood bankon ABO group Nom (Bld) O MP-Ne urolog -[facility] Work Phone: Blood group antibody screen Ql Negative MP-Neurolog y-[facility] Work Phone: Rh immune globulin screen (Bld) [Interp] Positive MP-Neurolo g -[facility] Work Phone: Laboratory - Chemistry and C hemistry - challengeon 07-30-2021 Anion gap [Moles/Vol] 13 mmol/L 10 - 20 MP- Neurolog y-[facility] Work Phone: Calcium [Mass/Vol] 9.1 mg/dL 8.6 - 10.6 MP-Alejandrina rolog y-[facility] Work Phone: Chloride [Moles/Vol] 111 mmol/L above high threshold 98 - 107 MP-Neurolog y-[facility] Work Phone: CO2 [Moles/Vol] 20 mmol/L below low threshold 21 - 32 MP-Neurolog y-[facility] Work Phone: Creatinine [Mass/Vol] 0.93 mg/dL See Below MP- Neurolog y-[facility] Work Phone: Comment on above: Reference Range: 0.5 0 - 1.05 Glucose [Mass/Vol] 84 mg/dL 74 - 99 DEB[facility]-Alejandrina natanaelog [facility] Work Phone: Potassium [Moles/Vol] 3.4 mmol/L below low threshold 3.5 - 5.3 [facility]-Neurolog [facility] Work Phone: Sodium [Moles/Vol] 141 mmol/L 136 - 145 [facility]-Alejandrina rolog [facility] Work Phone: Urea nitrogen [Mass/Vol] 15 mg/dL 6 - 23 [facility]-Neurolog [facility] Work Phone: Laboratory - Coagulationon 0 07-30-2021 aPTT Coag (PPP) [Time] 35 s 26 - 39 [facility] -Vic Baez Work Phone: Comment on above: THE APTT IS NO LONGE R USED FOR MONITORING UNFRACTIONATED HEPARIN THERAPY. FOR MONITORING HEPARIN THERAPY, USE THE HEPARIN ASSAY. INR Coag (PPP) [Relative time] 1.0 {INR} 0.9 - 1.1 [facility]-Neurolog [facility] Work Phone: PT Coag (PPP) [Time] 12.0 s 9.8 - 13.4 [facility]-N eurolog [facility] Work Phone: No Panel Informationon 07-30 74 {mL/min/1.73m2} >90 -Alejandrina Baez Work Phone: Comment on above: CALCULATIONS OF JAGRUTI MATED GFR ARE PERFORMED USING THE 2020 CKD-EPI STUDY REFIT EQUATION WITHOUT THE RACE VARIABLE FOR THE IDMS-TRACEABLE CREATININE METHODS.https://jasn.asnjournals.org/content//A SN.8221120572 Few [facility]E-Neurolog [facility] Work Phone: See Below [facility]-Neurolog [facility] Work Phone: Order Reconciliationon 07-30 Order Reconciliation Page 1 Admission Reconciliation Document Reconciliation Type: Admission requested on behalf of Manuel Keating (Resident) done by Manuel Keating ( (Resident)) Admission - Reconciliation: 30-Jul-2021 18:38 by: Manuel Keating ( (Resident)) Home MedicationsEnteredLast Dose TakenReconciled with current Order Reconciliation Comment/ Additional Information acetaminophen 325 mg oral tablet 2 tab(s) orally every 6 hours, as needed while having post operative pain, - Do not take more than 3 grams of Tylenol from all sources in a 24 hour [id number] Reviewed and Held acetaminophen-hydrocodone 325 mg-5 mg oral tablet 1 tab(s) orally every 6 to 8 hours, As [id number] Reviewed and Held amitriptyline 25 mg oral tablet 1 tab(s) oral once a [id number] Amitriptyline Tablet (ELAVIL)DOSE = 25 mg Oral At Bedtimeamitriptyline 25 mg oral tablet continued as the inpatient order Amitriptyline cholecalciferol 1250 mcg (50,000 intl units) oral capsule 1 cap(s) orally once a week on Reviewed and Held cyclobenzaprine 10 mg oral tablet 1 tab(s) orally 3 times a day, as needed while having muscle [id number] Reviewed and Held DULoxetine 30 mg oral delayed release capsule 1 tab(s) oral once a day at [id number] DULoxetine Delayed Release Capsule (CYMBALTA)DOSE = 30 mg Oral DailyClinician Notes: BEDTIME DOSEDULoxetine 30 mg oral delayed release capsule continued as the inpatient order DULoxetine DULoxetine 60 mg oral delayed release capsule 1 tab(s) oral once a day in the [id number] DULoxetine Delayed Release Capsule (CYMBALTA)DOSE = 60 mg Oral DailyDULoxetine 60 mg oral delayed release capsule continued as the inpatient order DULoxetine estradiol-norethindrone 1 mg-0.5 mg oral tablet 1 tab(s) oral once a day 30-Jul-2021 Estradiol Tablet (ESTRACE)DOSE = 1 mg Oral Daily estradiol-norethindrone 1 mg-0.5 mg oral tablet continued as the inpatient order Estradiol Lyrica 100 mg oral capsule 1 cap(s) oral 3 times a [id number] Pregabalin Capsule (LYRICA)DOSE = 100 mg Oral 3 Times a DayLyrica 100 mg oral capsule continued as the inpatient order Pregabalin multivitamin Multiple Vitamins oral tablet 1 tab(s) oral once a [id number] Multivitamin with Minerals TabletDOSE = 1 tablet(s) Oral Dailymultivitamin Multiple Vitamins oral tablet continued as the inpatient order Multivitamin with Minerals oxyCODONE 5 mg oral tablet 1 tab(s) orally every 6 hours, As Needed for severe breakthrough post operative pain, ICD 10: [id number] Reviewed and Held Oyster Shell Calcium 500 (1250 mg calcium carbonate) oral tablet 3 tab(s) orally 2 times a [id number] Calcium Carbonate Chewable Tablet, Chewable (TUMS)DOSE = 1,500 mg Oral Every 12 HoursOyster Shell Calcium 500 (1250 mg calcium carbonate) oral tablet continued as the inpatient order Calcium Carbonate Chewable sennosides-docusate 8.6 mg-50 mg oral tablet 2 tab(s) orally 2 times a day , -Take while using oxycodone for post operative pain to prevent constipation 30-Jul-2021 Reviewed and Held Additional Current Orders oxyCODONE 5 mg - Acetaminophen 325 mg Tablet (PERCOCET)DOSE = 1 tablet(s) Oral Once Normal [facility] Provider Note - ED v3on 03-3 Provider Note - ED v3 Provider Note: Chart Review: ED NOTES ED NOTES: HPI: Patient is a 50-year-old female with history of gastric bypass surgery, L4 laminectomy and L3-5 fusion and L4-5 laminectomy as well as L4 kyphoplasty with neurosurgery on July 22, 2019 who is presenting with concern for wound infection. Patient states her wound care nurse came to take a look at the wound today and told her she needed to come to the emergency department. Patient denies any recent fevers or chills. She notes she is overall been feeling pretty well however she does note significant pain in her skin around her back. Patient notes she was not sent home with any bandages and she is unsure if there has been any drainage from the wound. Patient notes today was the first day her wound care nurse came to see her. ------- ROS: In addition to HPI. Constitutional: No fever. No chills. Eyes: No blurry vision. No double vision. HENT: No sinus congestion. No sore throat. CV: No chest pain. No swelling. Resp: No cough. No shortness of breath. GI: No abdominal pain. No diarrhea. No nausea. No vomiting. MSK: No myalgias. No arthralgias. Neuro: No headache. No lightheadedness. No numbness or tingling. No weakness. Skin: No new rashes. Positive new sores. : No dysuria. No frequency. ------- PMH / PSH: gastric bypass surgery, L4 laminectomy and L3-5 fusion and L4-5 laminectomy as well as L4 kyphoplasty with neurosurgery on July 22, 2019 MEDS: Reviewed in EMR. ALLERGIES: Per EMR. SH: Per EMR ------- Physical Exam: VS: As documented in the triage note and EMR flowsheet from this visit were reviewed. General: Well appearing. No acute distress. Eyes: Pupils round and reactive. Extraocular movements grossly intact. No scleral icterus. HEENT: Atraumatic. Normocephalic. Moist mucous membranes. Neck: No meningismus CV: Regular rate. No murmurs, rubs, gallops appreciated. No pedal edema appreciated. Resp: Clear to auscultation bilaterally. No respiratory distress. GI: Soft, nontender to palpation. Nondistended. No rebound, guarding. No masses. MSK: Symmetric muscle bulk. Skin: Spinal incision is closed with scattered areas of erythema. Mild edema with no obvious purulence. Extremely tender to touch. Neuro: Alert. No focal neuro deficits observed. Speech fluent. Answers questions appropriately. Psych: Appropriate affect, cooperative. ------- Hospital Course / Medical Decision Making: Pertinent nursing note(s) reviewed. Patient evaluated. Pertinent EMR record(s) reviewed. Patient is a 50-year-old female with history of gastric bypass surgery and recent L4 laminectomy, L3-5 fusion, and L4 and 5 laminectomy and L4 kyphoplasty 1 week ago who is presenting with concern for wound infection. Patient is tachycardic to 112 but otherwise hemodynamically stable. Her wound is erythematous with some edema and extraordinarily tender to palpation and there is high concern for infection. Neurosurgery was consulted to evaluate the patient and labs were drawn. Neurosurgery recommended holding off on antibiotics unless the patient becomes septic. Patient was given Percocet for her pain. Neurosurgery recommended admission to their service and patient was admitted in stable condition for further treatment and management of her wound infection. ------ Assessment: 50-year-old female with history of gastric bypass surgery and recent L4 laminectomy, L3-5 fusion, and L4 and 5 laminectomy and L4 kyphoplasty 1 week ago who is presenting with postsurgical wound infection. ------ Disposition: Patient was admitted to the neurosurgery service in stable condition for further treatment and management of her postsurgical wound infection. ------- Patient case was discussed with the attending ED provider, who also saw and evaluated the patient. Patient and/or patient cash applications representative counseled regarding contents of Hospital Course / Medical Decision Making as well as diagnosis and plan. All (more content not included)... Normal [facility] RED CELL MORPHOLOGYon 2021 OVALOCYTES Few Normal [facility] Comment on above: Performed By: #### U RINC #### [facility] [address] [place] [address] RBC morphology finding Nom (Bld) See Below Normal [facility] Comment on above: Performed By: #### U RINC #### [facility] [address] [place] [address] TARGET CELLS Few Normal [facility] Comment on above: Performed By: #### U RINC #### [facility] [address] [place] [address] SEDIMENTATION RATE, ERYTHROC YTEon 07-30-2021 SEDIMENTATION RATE, ERYTHROCYTE 42 mm/h High 0 - 30 [facility] Comment on above: Performed By: #### C OVSC #### [facility] [address] [place] [address] Sedimentation Rate, Erythroc yteon 07-30-2021 ESR (Bld) [Velocity] 42 mm/h above high threshold 0 - 30 MP-Neurolog juan[facility] Work Phone: Daily Progress Note-Neurosur erasmo 07-24-2021 Daily Progress Note-Neurosurgery Service: Neurosurgery Subjective Data: DEANA CROFT is a 50 year old Female who is Hospital Day # 3 and POD #2 for 1. L3/5 posterior instrumented fusion;2. L4/5 laminectomy;3. L4 open kyphoplasty;5. neuronavigation. Objective Data: Objective Information: T PRBPMAPSpO2 [id number]/5598% Date/Time07/23 21: 21: 16: 21: 21:09 Range(36.1C - 37.9C ) (64 - 106 ) (17 - 20 ) (94 - 101 )/ (55 - 65 ) (94% - 100% ) Highest temp of 37.9 C was recorded at 07/23 16:28 Pain reported at 07/23 21:09: 6 = Moderate ---- Intake and Output ----- Mn/Dy/Year TimeIntakeOutputNet Jul 23, 2021 10:00 [id number] Jul 23, 2021 2:00 pm000 Jul 23, 2021 6:00 [id number] The Intake and Output Totals for the last 24 hours are: IntakeOutputNet [id number] Physical Exam by System: Neurological: BUE 09/04 BLE 09/04 SILT Recent Lab Results: Results: CBC: 07/23/2021 07:32 \ Hgb / \ 8.5 L / WBC Plt 7.7 279 / Hct \ / 30.1 L \ RBC: 3.29 L MCV: 91 RFP: 07/23/2021 07:32 NA+ Cl- BUN / 138 111 H 18 / ----- Glucose 89 K+ HCO3- Creat \ 4.2 22 1.19 H \ Calcium : 7.7 LAnion Gap : 9 L Albumin : 2.4 L Phos : 2.7 Assessment and Plan: Comorbidities: ComorbidityOther Code Status: Code StatusFull Code Assessment: h/o anxiety, obesity, s/p Duodenal switch procedure (2000), malabsorption, chronic anemia, fibromyalgia, chronic pain syndrome, p/w LBP, neurogenic claudication, MRI L spine T12 and L4 vertebral hemangiomas, L4-5 severe stenosis, 07/12 s/p L3/5 fusion, L4/5 laminectomy, L4 kyphoplasty, 07/22 uprights hardware in pos'n, PTOT-HC ASSESSMENT floor drains PTOT-HC barriers to dc PTOT-HC set up, drains, needs BM Attestation: Note Completion: I am a: Resident/Fellow Attending AttestationI saw and evaluated the patient. I personally obtained the sam and critical portions of the history and physical exam or was physically present for sam and critical portions performed by the resident/fellow. I reviewed the resident/fellows documentation and discussed the patient with the resident/fellow. I agree with the resident/fellows medical decision making as documented in the note. I personally evaluated the patient [id number] Electronic Signatures: Bong Skinner (Resident)) (Signed 23-Jul-2021 23:19) Authored: Service, Subjective Data, Objective Data, Assessment and Plan, Note Completion Tri Awad) (Signed 24-Jul-2021 16:59) Authored: Note Completion Co-Signer: Service, Subjective Data, Objective Data, Assessment and Plan, Note Completion Last Updated: 24-Jul-2021 16:59 by Tri Awad) Normal [facility] Rehab Note-occupational health nursing director apist - S/OT under direct supervon 07-24-2021 Rehab Note-occupational therapist - S/OT under direct superv Rehab: Info: Disciplineoccupational therapist; S/OT under direct supervision of OT. Mode of Treatmentindividual therapy; occupational therapy Time IN09:30 Time OUT09:54 Total Treatment [id number] Patient in ... at end of sessionbed, 2 railings up; alarm off; not on at start of visit Communicated with ... at end of sessionbedside nurse Patient Effortexcellent Symptoms Noted During/After Treatmentnone Patient Response to TreatmentPt began the session seated at the EOB and was agreeable to therapy. She was able to ambulate to the bathroom with no device and SBA to complete ADLs. Pt was able to recall and state spinal precautions. Line and Tubeswoundvac Vision/Cognition: Visual Impairment/Limitationscorre ctive lenses rn recruitment Affect/Mental Status (Cognitive)WFL Orientation Status (Cognition)oriented x 3 Cognitive Function (Cognitive)WFL Able to Follow Commands (Receptive)WFL Mobility/Tone: Bed Mobility Assessment/InterventionsSta rted and ended seated EOB Transfer Assessment/Interventionssit to stand transfer; stand to sit transfer; No device Sit-Stand Towns (Transfers)standby assist Stand-Sit Towns (Transfers)standby assist Impairments Impacting Function (Mobility)balance; pain ADL: BADL Assessment/Interventionbath ing; upper body dressing; grooming Towns Level (Bathing)standby assist; Pt was able to stand at the sink in the bathroom without a device and get washed up with a washcloth and SBA. Position (Bathing)standing Towns Level (Upper Body Dressing)supervision; don; doff; front opening garment Towns Level (Grooming)Pt was able to stand at the sink in the bathroom and brush her hair then teeth with SBA and no device. Impairments, BADL Safety/Performancebalance; pain Motor: Sitting, Static (Balance)good balance Sitting, Dynamic (Balance)good balance Upk-uk-Qjxhm (Balance)good balance Standing, Static (Balance)good balance Standing, Dynamic (Balance)good balance Sensory: Pre-Treatment Pain Rating7/10 Post-Treatment Pain Rating7/10 Comment, Pre/Post Treatment PainPain was not a limiting factor during today's treatment Sensory General Assessmentno sensation deficits identified Health: Observed Emotional Statecooperative; pleasant Outcomes Tools: Putting on and taking off regular lower body clothingnone Bathing (including washing, rinsing, drying)a little Toileting, which includes using toilet, bedpan or urinala little Putting on and taking off regular upper body clothingnone Taking care of personal grooming such as brushing teethnone Eating Mealsnone AM-PAC (OT) Total Score22 Short Term Goals: Bathing Upper Body: Established Bathing Upper Body: Towns Level Goalindependent Bathing Upper Body: Time Frame for Goal1 wk Bathing Lower Body: Established Bathing Lower Body: Towns Level Goalmodified independent Bathing Lower Body: Time Frame for Goal1 wk Grooming: Established Grooming: Towns Level Goalindependent Grooming: Time Frame for Goal1 wk Upper Body Dressing: Established Upper Body Dressing: Towns Level Goalindependent Upper Body Dressing: Time Frame for Goal1 wk Lower Body Dressing: Established Lower Body Dressing: Towns Level Goalmodified independent Lower Body Dressing: Time Frame for Goal1 wk Toileting: Established [id number] Toileting: Towns Level Goalmodified independent Toileting: Time Frame for Goal1 wk Outcome Summary: Progress: Occupational Therapyprogress toward functional goals is gradual DC Recommendations: Discharge Recommendation (OT Eval)Pt remains appropriate for LOW intensity therapy upon discharge to address deficits in strength and balance along with new spinal precautions and pain decreasing her functional independence for mobility and ADLs; will follow while in house. Electronic Signatures: Lucie Nava (OT) (Signed 24-Jul-2021 13:32) Co-Signer: Info, Vision/Cognition, Mobility/Tone, ADL, Motor, Sensory, Health, Outcomes Tools, Short Term Goals, Outcome Summary, DC Recommendations Lucie Britt (S/OT) (Signed 24-Jul-2021 12:54) Authored: Info, Vision/Cognition, Mobility/Tone, ADL, Motor, Sensory, Health, Outcomes Tools, Short Term Goals, Outcome Summary, DC Recommendations Last Updated: 24-Jul-2021 13:32 by Lucie Nava (OT) Normal [facility] CBCon 07-23-2021 Erythrocyte distribution width (RBC) [Ratio] 18.0 % High 11.5 - 14.5 [facility] Comment on above: Performed By: #### S TAPH #### [facility] [address] [place] [address] Hematocrit (Bld) [Volume fraction] 30.1 % Low 36.0 - 46.0 [facility] Comment on above: Performed By: #### S TAPH #### [facility] [address] [place] [address] Hemoglobin (Bld) [Mass/Vol] 8.5 g/dL Low 12.0 - 16.0 [facility] Comment on above: Performed By: #### S TAPH #### [facility] [address] [place] [address] MCHC (RBC) [Mass/Vol] 28.2 g/dL Low 32.0 - 36.0 [facility] Comment on above: Performed By: #### S TAPH #### [facility] [address] [place] [address] MCV (RBC) [Entitic vol] 91 fL Normal 80 - 100 [facility] Comment on above: Performed By: #### S TAPH #### [facility] [address] [place] [address] NUCLEATED RBC 0.0 /100 WBC Normal 0.0-0.0 [facility] Comment on above: Performed By: #### S TAPH #### [facility] [address] [place] [address] Platelets (Bld) [#/Vol] 279 10*3/uL Normal 150 - 450 [facility] Comment on above: Performed By: #### S TAPH #### [facility] [address] [place] [address] RBC 3.29 x10E12/L Low 4.00 - 5.20 [facility] Comment on above: Performed By: #### S TAPH #### [facility] [address] [place] [address] WBC (Bld) [#/Vol] 7.7 10*3/uL Normal 4.4 - 11.3 [facility] Comment on above: Performed By: #### S TAPH #### [facility] [address] [place] [address] Daily Progress Note-Farooq zimmerman 07-23-2021 Daily Progress Note-Neurosurgery Service: Neurosurgery Subjective Data: DEANA CROFT is a 50 year old Female who is Hospital Day # 2 and POD #1 for 1. L3/5 posterior instrumented fusion;2. L4/5 laminectomy;3. L4 open kyphoplasty;5. neuronavigation. Objective Data: Objective Information: T PRBPMAPSpO2 [id number]/6597% Date/Time07/22 17: 17: 17: 17: 17:06 Range(36.1C - 36.3C ) (64 - 86 ) (17 - 20 ) (96 - 106 )/ (58 - 65 ) (95% - 97% ) Pain reported at 07/22 16:15: 6 = Moderate ---- Intake and Output ----- Mn/Dy/Year TimeIntakeOutputNet Jul 22, 2021 2:00 [id number] Jul 22, 2021 6:00 [id number] Jul 21, 2021 10:00 [id number] The Intake and Output Totals for the last 24 hours are: IntakeOutputNet [id number] Physical Exam by System: Neurological: BUE 09/04 BLE 09/04 SILT Recent Lab Results: Results: CBC: 07/22/2021 09:20 \ Hgb / \ 8.7 L / WBC Plt 8.2 339 / Hct \ / 28.1 L \ RBC: 3.34 L MCV: 84 Neutrophil %: 65.5 RFP: 07/22/2021 09:20 NA+ Cl- BUN / 137 110 H 17 / ----- Glucose 89 K+ HCO3- Creat \ 4.7 19 L 0.98 \ Calcium : 8.1 LAnion Gap : 13 Albumin : 2.4 L Phos : 3.2 Coagulation: 07/22/2021 09:20 PT / 12.9 / -------< INR < 1.1 PTT\ 37 \ Assessment and Plan: Comorbidities: ComorbidityOther Code Status: Code StatusFull Code Assessment: h/o anxiety, obesity, s/p Duodenal switch procedure (2000), malabsorption, chronic anemia, fibromyalgia, chronic pain syndrome, p/w LBP, neurogenic claudication, MRI L spine T12 and L4 vertebral hemangiomas, L4-5 severe stenosis, 07/12 s/p L3/5 fusion, L4/5 laminectomy, L4 kyphoplasty, 07/22 uprights hardware in pos'n, PTOT-HC ASSESSMENT floor drains PTOT-HC barriers to dc PTOT-HC Attestation: Note Completion: I am a: Resident/Fellow Attending AttestationI saw and evaluated the patient. I personally obtained the sam and critical portions of the history and physical exam or was physically present for sam and critical portions performed by the resident/fellow. I reviewed the resident/fellows documentation and discussed the patient with the resident/fellow. I agree with the resident/fellows medical decision making as documented in the note. I personally evaluated the patient [id number] Electronic Signatures: Bong Skinner (Resident)) (Signed 22-Jul-2021 19:39) Authored: Service, Subjective Data, Objective Data, Assessment and Plan, Note Completion Tri Awad) (Signed 24-Jul-2021 16:58) Authored: Note Completion Co-Signer: Service, Subjective Data, Objective Data, Assessment and Plan, Note Completion Last Updated: 24-Jul-2021 16:58 by Tri Awad) Normal [facility] Laboratory - Hematology and Cell countson 07-23-2021 Erythrocyte distribution width (RBC) [Ratio] 18.0 % above high threshold See Below MG-Neurosur humberto-[facility] Work Phone: Comment on above: Reference Range: 11. 5 - 14.5 Hematocrit (Bld) [Volume fraction] 30.1 % below low threshold See Below MG-Neurosur humberto-[facility] Work Phone: Comment on above: Reference Range: 36. 0 - 46.0 Hemoglobin (Bld) [Mass/Vol] 8.5 g/dL below low threshold See Below [facility]-Neurosur humberto-[facility] Work Phone: Comment on above: Reference Range: 12. 0 - 16.0 MCHC (RBC) [Mass/Vol] 28.2 g/dL below low threshold See Below [facility]-Neurosur humberto-[facility] Work Phone: Comment on above: Reference Range: 32. 0 - 36.0 MCV (RBC) [Entitic vol] 91 fL 80 - 100 [facility]sur humber[facility] Work Phone: Platelets (Bld) [#/Vol] 279 10*3/uL 150 - 450 [facility]-Neurosur humberto-[facility] Work Phone: RBC (Bld) [#/Vol] 3.29 {x10E12/L} below low threshold See Below MG-Neurosur [facility] Work Phone: Comment on above: Reference Range: 4.0 0 - 5.20 WBC (Bld) [#/Vol] 7.7 10*3/uL 4.4 - 11.3 MG-Alejandrina rosur [facility] Work Phone: No Panel Informationon 07-23 0.0 {/100_WBC} 0.0-0.0 MG-Neurosu r [facility] Work Phone: Order Reconciliationon 07-23 Order Reconciliation Page 1 Discharge Reconciliation Document Reconciliation Type: Discharge requested on behalf of Perri Hadley (Advanced Practice Nurse) done by Perri Hadley (PHARMACY ACCOUNT DIRECTOR-COMPOSITION MOLDER) Discharge - Reconciliation: 23-Jul-2021 14:33 by: Perri Hadley (PHARMACY ACCOUNT DIRECTOR-COMPOSITION MOLDER) Home Medications EnteredHOME MEDICATIONS AT DISCHARGE DateReconciliation Comment/ Additional Information acetaminophen-hydrocodone 325 mg-5 mg oral tablet 1 tab(s) orally every 6 to 8 hours, As Needed 22-Jul-2021 10:29 acetaminophen-hydrocodone 325 mg-5 mg oral tablet 1 tab(s) orally every 6 to 8 hours, As Needed 22-Jul-2021 10:29 acetaminophen-hydrocodone 325 mg-5 mg oral tablet is continued as acetaminophen-hydrocodone 325 mg-5 mg oral tablet amitriptyline 25 mg oral tablet 1 tab(s) oral once a day 11-Jul-2021 12:30 amitriptyline 25 mg oral tablet 1 tab(s) oral once a day 11-Jul-2021 12:30 amitriptyline 25 mg oral tablet is continued as amitriptyline 25 mg oral tablet cholecalciferol 1250 mcg (50,000 intl units) oral capsule 1 cap(s) orally once a week on 22-Jul-2021 10:30 cholecalciferol 1250 mcg (50,000 intl units) oral capsule 1 cap(s) orally once a week on 22-Jul-2021 10:30 cholecalciferol 1250 mcg (50,000 intl units) oral capsule is continued as cholecalciferol 1250 mcg (50,000 intl units) oral capsule DULoxetine 30 mg oral delayed release capsule 1 tab(s) oral once a day at bedtime 22-Jul-2021 10:31 DULoxetine 30 mg oral delayed release capsule 1 tab(s) oral once a day at bedtime 22-Jul-2021 10:31 DULoxetine 30 mg oral delayed release capsule is continued as DULoxetine 30 mg oral delayed release capsule DULoxetine 60 mg oral delayed release capsule 1 tab(s) oral once a day in the morning 22-Jul-2021 10:32 DULoxetine 60 mg oral delayed release capsule 1 tab(s) oral once a day in the morning 22-Jul-2021 10:32 DULoxetine 60 mg oral delayed release capsule is continued as DULoxetine 60 mg oral delayed release capsule estradiol-norethindrone 1 mg-0.5 mg oral tablet 1 tab(s) oral once a day 11-Jul-2021 13:02 estradiol-norethindrone 1 mg-0.5 mg oral tablet 1 tab(s) oral once a day 11-Jul-2021 13:02 estradiol-norethindrone 1 mg-0.5 mg oral tablet is continued as estradiol-norethindrone 1 mg-0.5 mg oral tablet Lyrica 100 mg oral capsule 1 cap(s) oral 3 times a day 11-Jul-2021 12:30 Lyrica 100 mg oral capsule 1 cap(s) oral 3 times a day 11-Jul-2021 12:30 Lyrica 100 mg oral capsule is continued as Lyrica 100 mg oral capsule multivitamin Multiple Vitamins oral tablet 1 tab(s) oral once a day 11-Jul-2021 12:30 multivitamin Multiple Vitamins oral tablet 1 tab(s) oral once a day 11-Jul-2021 12:30 multivitamin Multiple Vitamins oral tablet is continued as multivitamin Multiple Vitamins oral tablet Oyster Shell Calcium 500 (1250 mg calcium carbonate) oral tablet 3 tab(s) orally 2 times a day 22-Jul-2021 10:33 Oyster Shell Calcium 500 (1250 mg calcium carbonate) oral tablet 3 tab(s) orally 2 times a day 22-Jul-2021 10:33 Oyster Shell Calcium 500 (1250 mg calcium carbonate) oral tablet is continued as Oyster Shell Calcium 500 (1250 mg calcium carbonate) oral tablet Current OrdersDateHOME MEDICATIONS AT DISCHARGE DateReconciliation Comment/ Additional Information Acetaminophen Tablet (TYLENOL)DOSE = 650 mg Oral Every 6 Hours 20-Jul-2021 15:32 acetaminophen 325 mg oral tablet 2 tab(s) orally every 6 hours, as needed while having post operative pain, - Do not take more than 3 grams of Tylenol from all sources in a 24 hour period 23-Jul-2021 14:21 Acetaminophen is continued as acetaminophen 325 mg oral tablet and modified Amitriptyline Tablet (ELAVIL)DOSE = 25 mg Oral At Bedtime 21-Jul-2021 16:56 Amitriptyline is not required Ascorbic Acid Tablet (VITAMIN C)DOSE = 500 mg Oral 2 Times a Day 20-Jul-2021 15:32 Ascorbic Acid is not required Bisacodyl Rectal Suppository (DULCOLAX)DOSE = 10 mg Rectal Daily, PRN if no BM in the previous 36 hoursClinician Notes: once now and daily PRN 23-Jul-2021 04:50 Bisacodyl Rectal is not required Bisacodyl Rectal Suppository (DULCOLAX)DOSE = 10 mg Rectal Once 23-Jul-2021 13:33 Bisacodyl Rectal is not required Calcium Carbonate Chewable Tablet, Chewable (TUMS)DOSE = 3,000 mg Oral Every 12 HoursNotes from Pharmacy: Calcium Carbonate 1,000 mg = Elemental Calcium 400 mg 22-Jul-2021 10:34 Calcium Carbonate Chewable is not required Cyclobenzaprine Tablet (FLEXERIL)DOSE = 10 mg Oral 3 Times a Day 22-Jul-2021 06:31 cyclobenzaprine 10 mg oral tablet 1 tab(s) orally 3 times a day, as needed while having muscle spasms 23-Jul-2021 14:28 Prescription is created for cyclobenzaprine 10 mg oral tablet Docusate Capsule (COLACE)DOSE = 100 mg Oral 2 Times a Day 23-Jul-2021 04:50 Docusate is not required DULoxetine Delayed Release Capsule (CYMBALTA)DOSE = 30 mg Oral Every Night 21-Jul-2021 16:56 DULoxetine is not required DULoxetine Delayed Release Capsule (CYMBALTA)DOSE = 60 mg Oral Every Mor (more content not included)... Normal [facility] RENAL FUNCTION PANELon 07-23 Albumin [Mass/Vol] 2.4 g/dL Low 3.4 - 5.0 [facility] Comment on above: Performed By: #### S TAPH #### [facility] [address] [place] [address] Anion gap [Moles/Vol] 9 mmol/L Low 10 - 20 [facility] Comment on above: Performed By: #### S TAPH #### [facility] [address] [place] [address] Calcium [Mass/Vol] 7.7 mg/dL Low 8.6 - 10.6 [facility] Comment on above: Performed By: #### S TAPH #### [facility] [address] [place] [address] Chloride [Moles/Vol] 111 mmol/L High 98 - 107 [facility] Comment on above: Performed By: #### S TAPH #### [facility] [address] [place] [address] Creatinine [Mass/Vol] 1.19 mg/dL High 0.50 - 1.05 [facility] Comment on above: Performed By: #### S TAPH #### [facility] [address] [place] [address] GFR/1.73 sq M.predicted among non-blacks MDRD (S/P/Bld) [Vol rate/Area] 55 mL/min/{1.73_m2} Abnormal >90 [facility] Comment on above: Result Comment: CALC ULATIONS OF ESTIMATED GFR ARE PERFORMED USING THE 2020 CKD-EPI STUDY REFIT EQUATION WITHOUT THE RACE VARIABLE FOR THE IDMS-TRACEABLE CREATININE METHODS. https://jasn.asnjournals.org/content/early//ASN.88561 51977 Performed By: #### S TAPH #### [facility] [address] [place] [address] Glucose [Mass/Vol] 89 mg/dL Normal 74 - 99 [facility] Comment on above: Performed By: #### S TAP #### [facility] [address] [place] [address] HCO3 (Bld) [Moles/Vol] 22 mmol/L Normal 21 - 32 [facility] Comment on above: Performed By: #### S TAP #### [facility] [address] [place] [address] Phosphate [Mass/Vol] 2.7 mg/dL Normal 2.5 - 4.9 [facility] Comment on above: Result Comment: The performance characteristics of phosphorus testing in heparinized plasma have been validated by the individual laboratory site where testing is performed. Testing on heparinized plasma is not approved by the FDA; however, such approval is not necessary. Performed By: #### S TAP #### [facility] [address] [place] [address] Potassium [Moles/Vol] 4.2 mmol/L Normal 3.5 - 5.3 [facility] Comment on above: Performed By: #### S TAP #### [facility] [address] [place] [address] Sodium [Moles/Vol] 138 mmol/L Normal 136 - 145 [facility] Comment on above: Performed By: #### S TAP #### [facility] [address] [place] [address] Urea nitrogen [Mass/Vol] 18 mg/dL Normal 6 - 23 [facility] Comment on above: Performed By: #### S TAP #### [facility] [address] [place] [address] Renal Function Panelon 07-23 Albumin BCP dye [Mass/Vol] 2.4 g/dL below low threshold 3.4 - 5.0 [facility]-Neurosur humberto-[facility] Work Phone: Anion gap [Moles/Vol] 9 mmol/L below low threshold 10 - 20 [facility]-Neurosur humberto-[facility] Work Phone: Calcium [Mass/Vol] 7.7 mg/dL below low threshold 8.6 - 10.6 [facility]-Neurosur humberto-[facility] Work Phone: [phone] Chloride [Moles/Vol] 111 mmol/L above high threshold 98 - 107 [facility]-Neurosur humberto-[facility] Work Phone: [phone] CO2 [Moles/Vol] 22 mmol/L 21 - 32 MG-Neuros ur humberto-[facility] Work Phone: [phone] Creatinine [Mass/Vol] 1.19 mg/dL above high threshold See Below MG-Neurosur humberto-[facility] Work Phone: [phone] Comment on above: Reference Range: 0.5 0 - 1.05 Glucose [Mass/Vol] 89 mg/dL 74 - 99 MG-Alej[address]rina rosur [facility] Work Phone: [phone] Phosphate [Mass/Vol] 2.7 mg/dL 2.5 - 4.9 MG-N eurosur [facility] Work Phone: [phone] Comment on above: The performance john acteristics of phosphorus testing in heparinized plasma have been validated by the individual laboratory site where testing is performed. Testing on heparinized plasma is not approved by the FDA; however, such approval is not necessary. Potassium [Moles/Vol] 4.2 mmol/L 3.5 - 5.3 MG- Neurosur humberto-[facility] Work Phone: [phone] Sodium [Moles/Vol] 138 mmol/L 136 - 145 MG-Alejandrina rosur [facility] Work Phone: [phone] Urea nitrogen [Mass/Vol] 18 mg/dL 6 - 23 MG-Neurosur [facility] Work Phone: [phone] Renal Function Panel 55 {mL/min/1.73m2} Abnormal >90 [facility]-Neurosur humberto-[facility] Work Phone: Comment on above: CALCULATIONS OF JAGRUTI MATED GFR ARE PERFORMED USING THE 2020 CKD-EPI STUDY REFIT EQUATION WITHOUT THE RACE VARIABLE FOR THE IDMS-TRACEABLE CREATININE METHODS.https://jasn.asnjournals.org/content//A SN.5654851205 BN SPINE, LUMBOSACRAL; 2 OR 3 VIEWSon 07-22-2021 BN SPINE, LUMBOSACRAL; 2 OR 3 VIEWS Patient Name: DEANA CROFT STUDY: SPINE, LUMBOSACRAL; 2 OR 3 VIEWS; ; 07/22/2021 10:57 am INDICATION: Baseline . COMPARISON: Lumbar spine radiographs 07/26/2018. ACCESSION NUMBER(S): [id number] ORDERING CLINICIAN: BEN DENISE FINDINGS: Frontal and lateral views of the lumbar spine were provided for interpretation, 2 images total. There has been interval posterior spinal fusion of the L3 through L5 vertebral bodies with screws transfixing the L3 and L5 pedicles. There are also interval vertebroplasty changes involving the L4 vertebral body with maintained vertebral body height. There is a small volume of subcutaneous soft tissue emphysema about the posterior aspect of the lower lumbar spine. 2 surgical drains project over the posterior subcutaneous soft tissues of the lower lumbar spine. Surgical clips are identified within the upper abdomen. IMPRESSION: Interval L3-L5 posterior spinal fusion and interval L4 vertebroplasty changes with expected immediate postoperative changes and surgical drains in place. Electronically signed by: WALE BREEN MD Normal [facility] CBC AND DIFFERENTIALon 07-22 % AUTOMATED IMMATURE GRAN 0.6 % Normal 0.0 - 0.9 [facility] Comment on above: Result Comment: Fernanda ture Granulocyte Count (IG) includes promyelocytes, myelocytes and metamyelocytes but does not include bands. Percent differential counts (%) should be interpreted in the context of the absolute cell counts (cells/L). Performed By: #### C OVSC #### [facility] [address] [place] [address] Basophils (Bld) [#/Vol] 0.02 10*3/uL Normal 0.00 - 0.10 [facility] Comment on above: Performed By: #### C OVSC #### [facility] [address] [place] [address] Basophils/100 WBC (Bld) 0.2 % Normal 0.0 - 2.0 [facility] Comment on above: Performed By: #### C OVSC #### [facility] [address] [place] [address] Eosinophils (Bld) [#/Vol] 0.02 10*3/uL Normal 0.00 - 0.70 [facility] Comment on above: Performed By: #### C OVSC #### [facility] [address] [place] [address] Eosinophils/100 WBC (Bld) 0.2 % Normal 0.0 - 6.0 [facility] Comment on above: Performed By: #### C OVSC #### [facility] [address] [place] [address] Erythrocyte distribution width (RBC) [Ratio] 17.4 % High 11.5 - 14.5 [facility] Comment on above: Performed By: #### C OVSC #### [facility] [address] [place] [address] Hematocrit (Bld) [Volume fraction] 28.1 % Low 36.0 - 46.0 [facility] Comment on above: Performed By: #### C OVSC #### [facility] [address] [place] [address] Hemoglobin (Bld) [Mass/Vol] 8.7 g/dL Low 12.0 - 16.0 [facility] Comment on above: Performed By: #### C OVSC #### [facility] [address] [place] [address] Lymphocytes (Bld) [#/Vol] 2.30 10*3/uL Normal 1.20 - 4.80 [facility] Comment on above: Performed By: #### C OVSC #### [facility] [address] [place] [address] Lymphocytes/100 WBC (Bld) 28.2 % Normal 13.0 - 44.0 [facility] Comment on above: Performed By: #### C OVSC #### [facility] [address] [place] [address] MCHC (RBC) [Mass/Vol] 31.0 g/dL Low 32.0 - 36.0 [facility] Comment on above: Performed By: #### C OVSC #### [facility] [address] [place] [address] MCV (RBC) [Entitic vol] 84 fL Normal 80 - 100 [facility] Comment on above: Performed By: #### C OVSC #### [facility] [address] [place] [address] Monocytes (Bld) [#/Vol] 0.43 10*3/uL Normal 0.10 - 1.00 [facility] Comment on above: Performed By: #### C OVSC #### [facility] [address] [place] [address] Monocytes/100 WBC (Bld) 5.3 % Normal 2.0 - 10.0 [facility] Comment on above: Performed By: #### C OVSC #### [facility] [address] [place] [address] Neutrophils (Bld) [#/Vol] 5.34 10*3/uL Normal 1.20 - 7.70 [facility] Comment on above: Performed By: #### C OVSC #### [facility] [address] [place] [address] Neutrophils/100 WBC (Bld) 65.5 % Normal 40.0 - 80.0 [facility] Comment on above: Performed By: #### C OVSC #### [facility] [address] [place] [address] NUCLEATED RBC 0.0 /100 WBC Normal 0.0-0.0 [facility] Comment on above: Performed By: #### C OVSC #### [facility] [address] [place] [address] Platelets (Bld) [#/Vol] 339 10*3/uL Normal 150 - 450 [facility] Comment on above: Performed By: #### C OVSC #### [facility] [address] [place] [address] RBC 3.34 x10E12/L Low 4.00 - 5.20 [facility] Comment on above: Performed By: #### C OVSC #### [facility] [address] [place] [address] WBC (Bld) [#/Vol] 8.2 10*3/uL Normal 4.4 - 11.3 [facility] Comment on above: Performed By: #### C OVSC #### [facility] [address] [place] [address] COAGULATION SCREENon 022 aPTT Coag (Bld) [Time] 37 s Normal 26 - 39 [facility] Comment on above: Result Comment: Note new reference range as of 04/01/2021 at 10:00am. Performed By: #### S TAPH #### [facility] [address] [place] [address] PT Coag (PPP) [Time] 12.9 s Normal 9.8 - 13.4 [facility] Comment on above: Result Comment: Note new reference range as of 04/01/2021 at 10:00am. Performed By: #### S TAPH #### [facility] [address] [place] [address] PT, INR 1.1 Normal 0.9 - 1.1 [facility] Comment on above: Performed By: #### S TAPH #### [facility] [address] [place] [address] Clinical Event Note-POD 1 As sessmenton 07-22-2021 Clinical Event Note-POD 1 Assessment Clinical Event: Clinical Event Note: TopicPOD 1 Assessment Details Patient is POD 1 from a L3-5 fusion, L4/5 laminectomy, L4 kyphoplasty; PE: Gen: A&Ox3 HEENT: Normocephalic, atraumatic; CVS: RR, S1 S2; Pulm: CTAB; No wheeze; Abd: Soft, NT/ND, +BS; Ext: No edema, no calf tenderness; Neuro: A&Ox3, FC x 4, Muscle strength 5/5 x 4; Integ: Warm, dry, L spine incision dressing intact with no strike through, surgical drains x 2 intact draining moderate bloody drainage; Psych: Mood appropriate; Home Medications (verified by patient): Amitriptyline 25 mg PO Daily Vicodin 325/5 mg PO Q6-8 H PRN Cholecalciferol 1250 mcg PO QFridays Duloxetine 60 mg PO QAM, 30 mg PO QHS Estradiol-norethinorone PO Daily Lyrica 100 mg PO TID MV PO Daily Oyster Shell Calcium 500 mg #3 tabs PO BID 50 yo female with a history of gastric bypass (2001), chronic anemia 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 Lumbar Spinal Stenosis with Neurogenic Claudication - POD 1 from a L3-5 fusion, L4/5 laminectomy, L4 kyphoplasty. - Upright Xrays ordered - Surgical drains put out #1 280mL, #2 105 mL since OR -> continue - Discontinue watson and [employer] JUDGE - Cont. scheduled acetaminophen 650 mg PO Q6H - Cont. Oxycodone 2.5, 5, 10 mg PO Q4H PRN Mild, Moderate, Severe Pain - Hydromorphone 0.4 mg IV Q4H PRN Breakthrough Pain - Cont. Cyclobenzaprine 10 mg PO TID - Cont. home Lyrica 100 mg PO TID - Cont. zinc and ascorbic acid PO x 2 weeks - No NSAIDs x 3 months - Cont. home Oyster Shell Calcium formulary equivalent of calcium carbonate 3000 mg PO BID - Patient to continue her Cholecalciferol 1250 mcg PO QFridays - PT/OT to evaluate - Patient will follow up with Dr. Awad 08/14/21 at 1345, [place] 5 and 09/18/21 at 1300, [place] 5 Anemia - Acute on chronic; Hx of anemia secondary to malabsorption from gastric bypass surgery. Receives IV Iron infusion through her claims technician, Dr. Kvng Lester. (Baseline Hgb ~ 10.0 - 11.0; - Hgb 8.7 - Check AM CBC Fibromyalgia - Cont. home Amitriptyline 25 mg PO Daily - Cont. home Duloxetine 60 mg PO QAM, 30 mg PO QHS Prophylaxis - Cont. Heparin 5000 units SC Q8H - Cont. SCDs - Cont. docusate/senna PO BID Disposition - PT/OT to evaluate - Discharge team following - GF initiated Time spent on the assessment of patient, gathering and interpreting data, review of medical record/patient history, personally reviewing radiographic imaging and formulation of this note 50 minutes of which 20% of time was at bedside educating and counseling patient as to diagnosis, plan of care. Electronic Signatures: Dilcia Mendoza (PHARMACY ACCOUNT DIRECTOR-COMPOSITION MOLDER) (Signed 22-Jul-2021 11:02) Authored: Clinical Event Note Last Updated: 22-Jul-2021 11:02 by Dilcia Mendoza (PHARMACY ACCOUNT DIRECTOR-COMPOSITION MOLDER) Normal [facility] Complete Blood Count + Diffe rentialon 07-22-2021 Basophils/100 WBC (Bld) 0.2 % 0.0 - 2.0 [facility] Work Phone: Erythrocyte distribution width (RBC) [Ratio] 17.4 % above high threshold See Below [facility] Work Phone: Comment on above: Reference Range: 11. 5 - 14.5 Hematocrit (Bld) [Volume fraction] 28.1 % below low threshold See Below [facility] Work Phone: Comment on above: Reference Range: 36. 0 - 46.0 Hemoglobin (Bld) [Mass/Vol] 8.7 g/dL below low threshold See Below [facility] Work Phone: Comment on above: Reference Range: 12. 0 - 16.0 Lymphocytes/100 WBC (Bld) 28.2 % See Below [facility] Work Phone: Comment on above: Reference Range: 13. 0 - 44.0 MCHC (RBC) [Mass/Vol] 31.0 g/dL below low threshold See Below [facility] Work Phone: Comment on above: Reference Range: 32. 0 - 36.0 MCV (RBC) [Entitic vol] 84 fL 80 - 100 [facility] Work Phone: Monocytes/100 WBC (Bld) 5.3 % 2.0 - 10.0 [facility] Work Phone: Neutrophils/100 WBC (Bld) 65.5 % See Below [facility] Work Phone: [phone] Comment on above: Reference Range: 40. 0 - 80.0 Platelets (Bld) [#/Vol] 339 10*3/uL 150 - 450 [facility] Work Phone: [phone] RBC (Bld) [#/Vol] 3.34 {x10E12/L} below low threshold See Below [facility] Work Phone: [phone] Comment on above: Reference Range: 4.0 0 - 5.20 WBC (Bld) [#/Vol] 8.2 10*3/uL 4.4 - 11.3 [facility]-Alejandrina rosur [facility] Work Phone: [phone] Complete Blood Count + Differential 0.02 {x10E9/L} See Below [facility] Work Phone: [phone] Comment on above: Reference Range: 0.0 0 - 0.10 Reference Range: 0.0 0 - 0.70 Complete Blood Count + Differential 0.43 {x10E9/L} See Below [facility] Work Phone: [phone] Comment on above: Reference Range: 0.1 0 - 1.00 Complete Blood Count + Differential 2.30 {x10E9/L} See Below [facility] Work Phone: [phone] Comment on above: Reference Range: 1.2 0 - 4.80 Complete Blood Count + Differential 5.34 {x10E9/L} See Below [facility] Work Phone: [phone] Comment on above: Reference Range: 1.2 0 - 7.70 Complete Blood Count + Differential 0.2 % 0.0 - 6.0 [facility] Work Phone: [phone] Complete Blood Count + Differential 0.6 % 0.0 - 0.9 [facility] Work Phone: [phone] Comment on above: Immature Granulocyte Count (IG) includes promyelocytes, myelocytes and metamyelocytes but does not include bands. Percent differential counts (%) should be interpreted in the context of the absolute cell counts (cells/L). Complete Blood Count + Differential 0.0 {/100_WBC} 0.0-0.0 [facility]-Farooq paul-[facility] Work Phone: Daily Progress Note-Farooq zimmerman 07-22-2021 Daily Progress Note-Neurosurgery Service: Neurosurgery Subjective Data: DEANA CROFT is a 50 year old Female who is Hospital Day # 2 and POD #1 for 1. L3/5 posterior instrumented fusion;2. L4/5 laminectomy;3. L4 open kyphoplasty;5. neuronavigation. Objective Data: Objective Information: T PRBPMAPSpO2 Value36.9472336/5895% Date/Time07/22 0: 0: 0: 0: 0:21 Range(36.3C - 36.3C ) (64 - 70 ) (18 - 20 ) (96 - 106 )/ (58 - 60 ) (95% - 95% ) Pain reported at 07/21 21:05: 8 = Severe Physical Exam by System: Neurological: BUE 5/5 BLE 5/5 SILT Recent Lab Results: Results: CBC: 07/21/2021 14:45 \ Hgb / \ 8.8 L / WBC Plt 8.2 303 / Hct \ / 30.3 L \ RBC: 3.41 L MCV: 89 Recent Arterial Blood Gas Results 07/21/2021 15:02 [id number] 24 h range: ( 185 - 204 ) pH7.38 24 h range: ( 7.26 - 7.38 ) [id number] 24 h range: ( 34 - 40 ) SO295 24 h range: ( 95 - 96 ) Base Excess-4.5 24 h range: ( -8.5 - -4.5 )null Assessment and Plan: Comorbidities: ComorbidityOther Code Status: Code StatusFull Code Assessment: h/o anxiety, obesity, s/p Duodenal switch procedure (2000), malabsorption, chronic anemia, fibromyalgia, chronic pain syndrome, p/w LBP, neurogenic claudication, MRI L spine T12 and L4 vertebral hemangiomas, L4-5 severe stenosis, 07/12 s/p L3/5 fusion, L4/5 laminectomy, L4 kyphoplasty ASSESSMENT floor drains uprights today PTOT barriers to dc drains uprights PTOT Attestation: Note Completion: I am a: Resident/Fellow Attending AttestationI saw and evaluated the patient. I personally obtained the sam and critical portions of the history and physical exam or was physically present for sam and critical portions performed by the resident/fellow. I reviewed the resident/fellows documentation and discussed the patient with the resident/fellow. I agree with the resident/fellows medical decision making as documented in the note. I personally evaluated the patient [id number] Electronic Signatures: Bong Skinner (Resident)) (Signed 22-Jul-2021 05:08) Authored: Service, Subjective Data, Objective Data, Assessment and Plan, Note Completion Tri Awad) (Signed 24-Jul-2021 16:57) Authored: Note Completion Co-Signer: Service, Subjective Data, Objective Data, Assessment and Plan, Note Completion Last Updated: 24-Jul-2021 16:57 by Tri Awad) [facility] Discharge [id number] Discharge Profile2 Discharge Orders: Anticipated Discharge Date: Anticipated Discharge [id number] Problem List: Prelim Disch Dx: Lumbosacral stenosis with neurogenic claudication: Catalog Name: Spinal stenosis, lumbosacral region Significant Events: Surgical Procedure: Clinical Events This Visit, 21-Jul-2021, 1. L3/5 posterior instrumented fusion;2. L4/5 laminectomy;3. L4 open kyphoplasty;5. neuronavigation Hospital Providers: Provider RoleProvider Name Tri Long Robert L DNAR: Code Status at Discharge: Full Code Activity: activity as tolerated. May not drive until follow-up visit and while taking pain medications. No pushing, pulling, or lifting objects greater than 10 pounds until follow-up visit. Weight-bearing Instructions: weight-bearing as tolerated. Diet: Dietregular Additional Orders: Additional Instructions -Do not take any over the counter or prescription NSAID medications for at least three months or until cleared by your Neurosurgeon. These medications include: Motrin, Ibuprofen, Advil, Aleve, Naproxen, Mobic etc.. This will allow for proper and adequate bone fusion. Please call your Neurosurgeon's office if you have any questions. -If you smoke or use products containing nicotine your are advised to stop. Nicotine may interfere with your bone fusion and hinder wound healing. Neurosurgery: Patient Instructions: - Call 911 or go directly to the Emergency Room if you have ANY of the following symptoms: 1. Sudden weakness or numbness of the face, arm or leg, especially on one side of the body 2. Sudden difficulty speaking or understanding 3. Sudden trouble seeing in one or both eyes 4. Sudden trouble walking, dizziness, loss of balance or lack of coordination 5. Persistent one-sided headache 6. Loss of conscious or decreased conscious, fainting or seizures. - Always carry a current medication list with you and bring it to ALL healthcare Provider visits. Activity: Activity as tolerated. Pain or discomfort is a guide to cut back on your activity. You may shower immediately after discharge. DO NOT allow direct water spray on your incision. No tub soaking. DO NOT drive a car or RIDE a bicycle or motorcycle until cleared by MD at follow-up appointment. Driving or operating heavy machinery, lawnmowers or power tools while taking opiod/narcotic pain medications may impair your judgement. You may ride in a car with your seat belt on. May NOT return to school/work. Returning to work is judged on an individual basis. You may be off work from 2-8 weeks and this will be evaluated by the MD at the follow-up appointment.. DO NOT participate in contact sports, yard work, or housework that requires bending or twisting at the waist. This includes: laundry, gardening, mowing lawns, vacuuming, ironing, washing dishes, & loading the dryer or airplane cover maker until cleared by MD. Do NOT bend at waist or twist. Instead, bend at knees to fruit or nut picker objects. Wound Care: Inspect your incision daily for signs of infection: redness, swelling, drainage and foul discharge. Keep surgical incision open to air. DO NOT soak in a tub or swim until incision is completely healed. This may take approximately 4 weeks. DO NOT scrub or rub the incision. You may gently pat the incision. DO NOT pick off scabs, or old blood from the incision site. The incision should heal naturally on its own. Medication Instructions: If you were taking medications prior to your surgery and they are not listed on your discharge homegoing instructions medications list, consult your MD before you resume these medications. DO NOT resume taking blood thinning medications like Coumadin/Warfarin, Ibuprofen and Aspirin until cleared by your Neurosurgeon. Remember when taking Acetaminophen to NOT exceed 1000 mg per dose or 4000 mg per day. Taking too much Acetaminophen at one time can damage your liver. Call MD if you have any questions about your medications. To prevent constipation while taking narcotic pain medications, ensure that you drink plenty of water, eat fiber rich foods (a good source is fruit) and increase activity progressively. Call Physician If: Call your Neurosurgeon immediately for any questions or concerns regarding the surgical incision. Call your MD or seek immediate medical attention if you experience any of the following symptoms: 1. Fever of 101.5 (38.5 C) or greater 2. Seizures 3. Nausea with vomiting 4. Double, blurry or loss of vision 5. Confusion 6. Severe headaches that make you nauseous and vomit 7. Drainage or swelling around your incision 8. Trouble speaking 9. Loss of movement or weakness in your arms or legs 10. Trouble controlling your bowels or bladder 11. Fainting or passing out 12. Separation of the incision, or tearing of the incision line 13. Large fluid collection under or around the (more content not included)... Normal [facility] Laboratory - Coagulationon 0 - aPTT Coag (PPP) [Time] 37 s 26 - 39 [facility] Work Phone: Comment on above: Note new reference jaye welch as of 04/01/2021 at 10:00am. INR Coag (PPP) [Relative time] 1.1 {INR} 0.9 - 1.1 [facility]uro[facility] Work Phone: PT Coag (PPP) [Time] 12.9 s 9.8 - 13.4 [facility] Work Phone: Comment on above: Note new reference jaye welch as of 04/01/2021 at 10:00am. MAGNESIUMon 07-22-2021 Magnesium [Mass/Vol] 1.69 mg/dL Normal 1.60 - 2.40 [facility] Comment on above: Performed By: #### M G #### [facility] [address] [address] Magnesium, Serumon Magnesium [Mass/Vol] 1.69 mg/dL See Below MG-N nevaehr humberto-[facility] Work Phone: Comment on above: Reference Range: 1.6 0 - 2.40 OT Evaluation v2-individual therapy - S/OT under direct supeon 07-22-2021 OT Evaluation v2-individual therapy - S/OT under direct supe Rehab: Info: Mode of Treatmentindividual therapy; occupational therapy; S/OT under direct supervision of OT. Time IN09:26 Time OUT09:55 Total Treatment [id number] Patient in ... at end of sessionchair; alarm on Communicated with ... at end of sessionbedside nurse Patient Effortexcellent Symptoms Noted During/After Treatmentnone Patient Profile Reviewedyes Onset of Illness/Injury or Date of [id number] Reason for ReferralL3/5 posterior instrumented fusion; L4/5 laminectomy; L4 open kyphoplasty; neuronavigation. General Observations of PatientPt was supine upon arrival and was agreeable to therapy. Pt required mostly SBA for ADLs and functional mobility. She tolerated activity throughout but showed some anxiety at the end in regards to independence in ADLs and IADLs when going home since she is responsible for helping her significant other in these activities as well. Pertinent History of Current Functional ProblemAnxiety, obesity, s/p Duodenal switch procedure (2000), malabsorption, chronic anemia, fibromyalgia, chronic pain syndrome, p/w LBP, neurogenic claudication, MRI L spine T12 and L4 vertebral hemangiomas, L4-5 severe stenosis, 07/12 s/p L3/5 fusion, L4/5 laminectomy, L4 kyphoplasty Hand Dominanceright Hearing Precautions/LimitationsWFL Precautions/Limitationsspin al precautions Ambulation Skills - Previous Level of Functionindependent Transfer Skills - Previous Level of Functionindependent ADL Skills - Previous Level of Functionindependent Work/Leisure Activity - Previous Level of Functionindependent; 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 Living Arrangementshouse; 2-story home but patient states that she have been staying on the first floor due to pain in her back recently. She states that she has a full bath on the first floor (not a walk in) with a chair and grab bar. Lives Withsignificant other; Pt reports that she assists her significant other with ADLs and IADLs. Home Accessibilityfirst floor set up available; tub/shower is not walk in; stairs to enter home Number of Stairs to Enter Home2 Type of Equipment Currently In the HomePt reports that she has equipment such as several canes, walkers, and shower chair due to her significant other. Line and TubesIV; woundvac Vision/Cognition: Visual Impairment/LimitationsWFL; corrective lenses rn recruitment Affect/Mental Status (Cognitive)WFL; Slightly anxious about going home and not being able to care for her significant other as much as usual. Orientation Status (Cognition)oriented x 4 Cognitive Function (Cognitive)WFL Able to Follow Commands (Receptive)WFL ROM: Upper Extremity: Range of Motionleft upper extremity ROM WFL; right upper extremity ROM WFL MMT: Upper Extremity: Manual Muscle Testing (MMT)left upper extremity strength WFL; right upper extremity strength WFL Mobility/Tone: Bed Mobility Assessment/Interventionssup ine to sit; sit to supine; Able to perform log-roll Zuftsu-ye-Uqx Towns (Bed Mobility)contact guard Diu-uw-Kvxrxb Towns (Bed Mobility)contact guard Transfer Assessment/Interventionssit to stand transfer; stand to sit transfer; bed to chair transfer Bed-Chair Towns (Transfers)standby assist Bed-Chair Assistive Device (Transfers)No device Sit-Stand Towns (Transfers)standby assist Sit-Stand Assistive Device (Transfers)No device Stand-Sit Towns (Transfers)standby assist Stand-Sit Assistive Device (Transfers)No device Impairments Impacting Function (Mobility)balance; endurance/activity tolerance; pain; range of motion; strength ADL: BADL Assessment/Interventionlowe r body dressing Towns Level (Lower Body Dressing)don; pants/bottoms; standby assist Position (Lower Body Dressing)long sitting Impairments, BADL Safety/Performanceendurance /activity tolerance; balance; pain; range of motion; strength Motor: Sitting, Static (Balance)good balance Sitting, Dynamic (Balance)good balance Dhe-vc-Jdpxc (Balance)fair balance Standing, Static (Balance)good balance Standing, Dynamic (Balance)good balance Sensory: Pre-Treatment Pain Rating7/10 Post-Treatment Pain Rating7/10 Comment, Pre/Post Treatment PainPain did not limit participation in evaluation. Sensory General Assessmentno sensation deficits identified Health: Observed Emotional Statecooperative; pleasant Impression: Criteria for Skilled Therapeutic Interventions Met (OT Eval)yes; treatment indicated OT DiagnosisDifficulty with ADLs Assessment (OT Eval)Due to decreased strength and balance along with new spinal precautions and pain, pt is requiring additional assistance for ADLs and functional mobility and would benefit from further OT services to address. Therapy Frequency (OT Eval)3 times/wk Predicted Duration of Therapy Intervention7 days F (more content not included)... Normal [facility] PT Evaluation v2-individual therapyon 07-22-2021 PT Evaluation v2-individual therapy Rehab: Info: Mode of Treatmentindividual therapy; physical therapy Time IN12:26 Time OUT12:34 Total Treatment Minutes8 Patient in ... at end of sessionbed, 2 railings up; alarm off; not on at start of visit Patient Effortexcellent Symptoms Noted During/After Treatmentnone Patient Profile Reviewedyes Onset of Illness/Injury or Date of [id number] Reason for ReferralL3/5 posterior instrumented fusion; L4/5 laminectomy; L4 open kyphoplasty; neuronavigation. General Observations of PatientPt seated at EOB upon arrival, A&Ox4 and agreeable to therapy. Pt. tolerated transfers, ambulation, and stair negotiation well without fatigue, SOB nor increase in pain. Pertinent History of Current Functional ProblemAnxiety, obesity, s/p Duodenal switch procedure (2000), malabsorption, chronic anemia, fibromyalgia, chronic pain syndrome, p/w LBP, neurogenic claudication, MRI L spine T12 and L4 vertebral hemangiomas, L4-5 severe stenosis, 07/12 s/p L3/5 fusion, L4/5 laminectomy, L4 kyphoplasty Hearing Precautions/LimitationsWFL Precautions/Limitationsspin al precautions Ambulation Skills - Previous Level of Functionindependent community ambulator Transfer Skills - Previous Level of Functionindependent ADL Skills - Previous Level of Functionindependent Work/Leisure Activity - Previous Level of Functionindependent; 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 Living Arrangementshouse; 2-story home but patient states that she have been staying on the first floor due to pain in her back recently. She states that she has a full bath on the first floor (not a walk in) with a chair and grab bar. Lives Withsignificant other; Pt reports that she assists her significant other with ADLs and IADLs. Home Accessibilityfirst floor set up available; tub/shower is not walk in; stairs to enter home Number of Stairs to Enter Home2 Type of Equipment Currently In the HomePt reports that she has equipment such as several canes, walkers, and shower chair due to her significant other. Line and TubesIV; woundvac Vision/Cognition: Visual Impairment/LimitationsWFL; corrective lenses rn recruitment Affect/Mental Status (Cognitive)WFL Orientation Status (Cognition)oriented x 4 Cognitive Function (Cognitive)WFL Able to Follow Commands (Receptive)WFL ROM: Upper Extremity: Range of Motionleft upper extremity ROM WFL; right upper extremity ROM WFL Lower Extremity: Range of Motionleft lower extremity ROM WFL; right lower extremity ROM WFL MMT: Upper Extremity: Manual Muscle Testing (MMT)left upper extremity strength WFL; right upper extremity strength WFL; grossly >/= 3+/5 Lower Extremity: Manual Muscle Testing (MMT)right lower extremity strength WFL; grossly >/= 3+/5; left lower extremity strength WFL Mobility/Tone: Transfer Assessment/Interventionssit to stand transfer; stand to sit transfer Sit-Stand Towns (Transfers)standby assist Sit-Stand Assistive Device (Transfers)No device Stand-Sit Towns (Transfers)standby assist Stand-Sit Assistive Device (Transfers)No device Gait/Stairs Locomotiongait/ambulation independence; gait/ambulation assistive device; distance ambulated; gait deviations; stairs negotiation Gait Locomotion (Gait)standby assist; 1 person assist Assistive Device (Gait Training)no device Distance in Feet (Gait Training)150ft Gait Deviations Identified (Gait)decreased maurice Stairs Negotiation (Stairs)stairs activity; number of stairs; handrail location; stairs assistive device Towns Level (Stairs Training)standby assist; 1 person assist; verbal cues Assistive Device (Stairs Training)no device Handrail Location (Stairs Training)both sides Number of Stairs (Stairs Training)2 Comment, Gait/Stairs TrainingPt. utilized step to step pattern for stair negotiation. Pt. able to perform greater number of stairs, but was limited at this time 2/2 to IV tubing length Impairments Impacting Function (Mobility)balance; endurance/activity tolerance; pain; range of motion; strength Motor: Balance ActivitiesSBA for all balance assessments and activity Sensory: Pre-Treatment Pain Rating4/10 Post-Treatment Pain Rating4/10 Pain LocationLower back, incisional Comment, Pre/Post Treatment PainPain did not limit participation in evaluation. Sensory General Assessmentno sensation deficits identified; denies n/t Health: Observed Emotional Statecooperative; pleasant; calm Plan of Care Reviewed Withpatient Impression: Criteria for Skilled Therapeutic Interventions Met (PT Eval)yes; treatment indicated PT Diagnosisimpaired mobility System Pathology/Pathophysiology Noted (PT Eval)musculoskeletal Impairments Found (PT Eval)gait, locomotion, and balance Functional Limitations in Following Categoriesmobility/gait; stairs Rehab Potential (PT Eval)good, to (more content not included)... Normal [facility] RENAL FUNCTION PANELon 07-22 Albumin [Mass/Vol] 2.4 g/dL Low 3.4 - 5.0 [facility] Comment on above: Performed By: #### C OAGS #### [facility] [address] [place] [address] Anion gap [Moles/Vol] 13 mmol/L Normal - 20 [facility] Comment on above: Performed By: #### C OAGS #### [facility] [address] [place] [address] Calcium [Mass/Vol] 8.1 mg/dL Low 8.6 - 10.6 [facility] Comment on above: Performed By: #### C OAGS #### [place] [address] [place] [address] Chloride [Moles/Vol] 110 mmol/L High 98 - 107 [facility] Comment on above: Performed By: #### C OAGS #### [facility] [address] [place] [address] Creatinine [Mass/Vol] 0.98 mg/dL Normal 0.50 - 1.05 [facility] Comment on above: Performed By: #### C OAGS #### [place] [address] [place] [address] GFR/1.73 sq M.predicted among non-blacks MDRD (S/P/Bld) [Vol rate/Area] 70 mL/min/{1.73_m2} Normal >90 [facility] Comment on above: Result Comment: CALC ULATIONS OF ESTIMATED GFR ARE PERFORMED USING THE 2020 CKD-EPI STUDY REFIT EQUATION WITHOUT THE RACE VARIABLE FOR THE IDMS-TRACEABLE CREATININE METHODS. https://jasn.asnjournals.org/content/early/ASN.50913 08135 Performed By: #### C OAGS #### [facility] [address] [place] [address] Glucose [Mass/Vol] 89 mg/dL Normal 74 - 99 [facility] Comment on above: Performed By: #### C OAGS #### [facility] [address] [place] [address] HCO3 (Bld) [Moles/Vol] 19 mmol/L Low 21 - 32 [facility] Comment on above: Performed By: #### C OAGS #### [facility] [address] [place] [address] Phosphate [Mass/Vol] 3.2 mg/dL Normal 2.5 - 4.9 [facility] Comment on above: Result Comment: The performance characteristics of phosphorus testing in heparinized plasma have been validated by the individual laboratory site where testing is performed. Testing on heparinized plasma is not approved by the FDA; however, such approval is not necessary. Performed By: #### C OAGS #### [facility] [address] [place] [address] Potassium [Moles/Vol] 4.7 mmol/L Normal 3.5 - 5.3 [facility] Comment on above: Performed By: #### C OAGS #### [facility] [address] [place] [address] Sodium [Moles/Vol] 137 mmol/L Normal 136 - 145 [facility] Comment on above: Performed By: #### C OAGS #### [facility] [address] [place] [address] Urea nitrogen [Mass/Vol] 17 mg/dL Normal 6 - 23 [facility] Comment on above: Performed By: #### C OAGS #### [facility] [address] [place] [address] Radiologyon 07-22-2021 XR Lumbar spine AP and Lateral Normal [facility] Work Phone: Renal Function Panelon 07-22 Albumin BCP dye [Mass/Vol] 2.4 g/dL below low threshold 3.4 - 5.0 [facility] Work Phone: Anion gap [Moles/Vol] 13 mmol/L 10 - 20 [facility] Work Phone: Calcium [Mass/Vol] 8.1 mg/dL below low threshold 8.6 - 10.6 [facility] Work Phone: Chloride [Moles/Vol] 110 mmol/L above high threshold 98 - 107 [facility] Work Phone: CO2 [Moles/Vol] 19 mmol/L below low threshold 21 - 32 [facility] Work Phone: Creatinine [Mass/Vol] 0.98 mg/dL See Below [facility] Work Phone: Comment on above: Reference Range: 0.5 0 - 1.05 Glucose [Mass/Vol] 89 mg/dL 74 - 99 [facility]-Alejandrina rosur [facility] Work Phone: Phosphate [Mass/Vol] 3.2 mg/dL 2.5 - 4.[address] [facility] Work Phone: Comment on above: The performance john acteristics of phosphorus testing in heparinized plasma have been validated by the individual laboratory site where testing is performed. Testing on heparinized plasma is not approved by the FDA; however, such approval is not necessary. Potassium [Moles/Vol] 4.7 mmol/L 3.5 - 5.3 [facility]- Neuro[facility] Work Phone: Sodium [Moles/Vol] 137 mmol/L 136 - 145 [facility]Alejandrina ro[facility] Work Phone: Urea nitrogen [Mass/Vol] 17 mg/dL 6 - 23 [facility] Work Phone: Renal Function Panel 70 {mL/min/1.73m2} >90 [facility] Work Phone: Comment on above: CALCULATIONS OF JAGRUTI MATED GFR ARE PERFORMED USING THE 2020 CKD-EPI STUDY REFIT EQUATION WITHOUT THE RACE VARIABLE FOR THE IDMS-TRACEABLE CREATININE METHODS.https://jasn.asnjournals.org/content//A SN.7738259883 ARTERIAL FULL PANELon 2021 Anion gap [Moles/Vol] 8 mmol/L Low 10 - 25 [facility] Comment on above: Performed By: #### C OVSC #### [facility] [address] [place] [address] BASE EXCESS-BLOOD -4.5 mmol/L Low -2.0 - 3.0 [facility] Comment on above: Performed By: #### C OVSC #### [facility] [address] [place] [address] BICARB, CALCULATED 20.1 mmol/L Low 22.0 - 26.0 [facility] Comment on above: Performed By: #### C OVSC #### [facility] [address] [place] [address] CALCIUM,IONIZED 1.19 mmol/L Normal 1.10 - 1.33 [facility] Comment on above: Performed By: #### C OVSC #### [facility] [address] [place] [address] Chloride [Moles/Vol] 113 mmol/L High 98 - 107 [facility] Comment on above: Performed By: #### C OVSC #### [facility] [address] [place] [address] Glucose [Mass/Vol] 118 mg/dL High 74 - 99 [facility] Comment on above: Performed By: #### C OVSC #### [facility] [address] [place] [address] Hematocrit (Bld) [Volume fraction] 27.0 % Low 36.0 - 46.0 [facility] Comment on above: Performed By: #### C OVSC #### [facility] [address] [place] [address] Hemoglobin (Bld) [Mass/Vol] 9.0 g/dL Low 12.0 - 16.0 [facility] Comment on above: Performed By: #### C OVSC #### [facility] [address] [place] [address] Lactate [Moles/Vol] 0.5 mmol/L Normal 0.4 - 2.0 [facility] Comment on above: Performed By: #### C OVSC #### [facility] [address] [place] [address] OXY HGB 89.8 % Low 94.0 - 98.0 [facility] Comment on above: Performed By: #### C OVSC #### [facility] [address] [place] [address] Oxygen (Bld) [Partial pressure] 194 mm[Hg] High 85 - 95 [facility] Comment on above: Performed By: #### C OVSC #### [facility] [address] [place] [address] PATIENT TEMPERATURE 37.0 degrees C Normal [facility] Comment on above: Result Comment: NOTE : PATIENT RESULTS ARE NOT CORRECTED FOR TEMPERATURE. Performed By: #### C OVSC #### [place] [address] [place] [address] PCO2 34 mmHg Low 38 - 42 [facility] Comment on above: Performed By: #### C OVSC #### [place] [address] [place] [address] pH (Bld) 7.38 [pH] Normal 7.38 - 7.42 [facility] Comment on above: Performed By: #### C OVSC #### [facility] [address] [place] [address] Potassium [Moles/Vol] 4.7 mmol/L Normal 3.5 - 5.3 [facility] Comment on above: Performed By: #### C OVSC #### [facility] [address] [place] [address] SO2 95 % Normal 94 - 100 [facility] Comment on above: Performed By: #### C OVSC #### [facility] [address] [place] [address] Sodium [Moles/Vol] 136 mmol/L Normal 136 - 145 [facility] Comment on above: Performed By: #### C OVSC #### [facility] [address] [place] [address] Anion gap [Moles/Vol] 11 mmol/L Normal 10 - 25 [facility] Comment on above: Performed By: #### S TAPH #### [facility] [address] [place] [address] BASE EXCESS-BLOOD -8.5 mmol/L Low -2.0 - 3.0 [facility] Comment on above: Performed By: #### S TAPH #### [facility] [address] [place] [address] BICARB, CALCULATED 17.9 mmol/L Low 22.0 - 26.0 [facility] Comment on above: Performed By: #### S TAPH #### [facility] [address] [place] [address] CALCIUM,IONIZED 1.23 mmol/L Normal 1.10 - 1.33 [facility] Comment on above: Performed By: #### S TAPH #### [facility] [address] [place] [address] Chloride [Moles/Vol] 112 mmol/L High 98 - 107 [facility] Comment on above: Performed By: #### S TAPH #### [facility] [address] [place] [address] Glucose [Mass/Vol] 108 mg/dL High 74 - 99 [facility] Comment on above: Performed By: #### S TAPH #### [facility] [address] [place] [address] Hematocrit (Bld) [Volume fraction] 23.0 % Low 36.0 - 46.0 [facility] Comment on above: Performed By: #### S TAPH #### [facility] [address] [place] [address] Hemoglobin (Bld) [Mass/Vol] 7.7 g/dL Low 12.0 - 16.0 [facility] Comment on above: Performed By: #### S TAPH #### [facility] [address] [place] [address] Lactate [Moles/Vol] 0.5 mmol/L Normal 0.4 - 2.0 [facility] Comment on above: Performed By: #### S TAPH #### [facility] [address] [place] [address] OXY HGB 93.8 % Low 94.0 - 98.0 [facility] Comment on above: Performed By: #### S TAPH #### [facility] [address] [place] [address] Oxygen (Bld) [Partial pressure] 185 mm[Hg] High 85 - 95 [facility] Comment on above: Performed By: #### S TAPH #### [facility] [address] [place] [address] PATIENT TEMPERATURE 37.0 degrees C Normal [facility] Comment on above: Result Comment: NOTE : PATIENT RESULTS ARE NOT CORRECTED FOR TEMPERATURE. Performed By: #### S TAPH #### [facility] [address] [place] [address] PCO2 40 mmHg Normal 38 - 42 [facility] Comment on above: Performed By: #### S TAPH #### [facility] [address] [place] [address] pH (Bld) 7.26 [pH] Low 7.38 - 7.42 [facility] Comment on above: Performed By: #### S TAPH #### [facility] [address] [place] [address] Potassium [Moles/Vol] 4.5 mmol/L Normal 3.5 - 5.3 [facility] Comment on above: Performed By: #### S TAPH #### [facility] [address] [place] [address] SO2 96 % Normal 94 - 100 [facility] Comment on above: Performed By: #### S TAPH #### [facility] [address] [place] [address] Sodium [Moles/Vol] 136 mmol/L Normal 136 - 145 [facility] Comment on above: Performed By: #### S TAPH #### [facility] [address] [place] [address] Anion gap [Moles/Vol] 12 mmol/L Normal 10 - 25 [facility] Comment on above: Performed By: #### C BCDF #### [facility] [address] [place] [address] BASE EXCESS-BLOOD -8.4 mmol/L Low -2.0 - 3.0 [facility] Comment on above: Performed By: #### C BCDF #### [facility] [address] [place] [address] BICARB, CALCULATED 17.2 mmol/L Low 22.0 - 26.0 [facility] Comment on above: Performed By: #### C BCDF #### [facility] [address] [place] [address] CALCIUM,IONIZED 1.20 mmol/L Normal 1.10 - 1.33 [facility] Comment on above: Performed By: #### C BCDF #### [facility] [address] [place] [address] Chloride [Moles/Vol] 112 mmol/L High 98 - 107 [facility] Comment on above: Performed By: #### C BCDF #### [facility] [address] [place] [address] Glucose [Mass/Vol] 89 mg/dL Normal 74 - 99 [facility] Comment on above: Performed By: #### C BCDF #### [facility] [address] [place] [address] Hematocrit (Bld) [Volume fraction] 28.0 % Low 36.0 - 46.0 [facility] Comment on above: Performed By: #### C BCDF #### [facility] [address] [place] [address] Hemoglobin (Bld) [Mass/Vol] 9.3 g/dL Low 12.0 - 16.0 [facility] Comment on above: Performed By: #### C BCDF #### [facility] [address] [place] [address] Lactate [Moles/Vol] 0.3 mmol/L Low 0.4 - 2.0 [facility] Comment on above: Performed By: #### C BCDF #### [facility] [address] [place] [address] OXY HGB 91.4 % Low 94.0 - 98.0 [facility] Comment on above: Performed By: #### C BCDF #### [facility] [address] [place] [address] Oxygen (Bld) [Partial pressure] 204 mm[Hg] High 85 - 95 [facility] Comment on above: Performed By: #### C BCDF #### [facility] [address] [place] [address] PATIENT TEMPERATURE 37.0 degrees C Normal [facility] Comment on above: Result Comment: NOTE : PATIENT RESULTS ARE NOT CORRECTED FOR TEMPERATURE. Performed By: #### C BCDF #### [facility] [address] [place] [address] PCO2 35 mmHg Low 38 - 42 [facility] Comment on above: Performed By: #### C BCDF #### [place] [address] [place] [address] pH (Bld) 7.30 [pH] Low 7.38 - 7.42 [facility] Comment on above: Performed By: #### C BCDF #### [facility] [address] [place] [address] Potassium [Moles/Vol] 3.9 mmol/L Normal 3.5 - 5.3 [facility] Comment on above: Performed By: #### C BCDF #### [facility] [address] [place] [address] SO2 95 % Normal 94 - 100 [facility] Comment on above: Performed By: #### C BCDF #### [facility] [address] [place] [address] Sodium [Moles/Vol] 137 mmol/L Normal 136 - 145 [facility] Comment on above: Performed By: #### C BCDF #### [facility] [address] [place] [address] Admission Risk Screen - Adul ton 07-21-2021 Admission Risk Screen - Adult Allergies: Allergies: No Known Allergies: Patient Verification: New W ID Band Applied in my Departmentyes Patient Identity Verified Bypatient ID Band FULL Name, include Middle, spelling matches patient's ID used for verificationyes ID Band Matches Patient ID used for Verficationyes ID Band MRN Matches EMR MRNyes Visitor Restriction: Coronavirus Visitor Restriction: Reasonable restrictions to in-person visitors will be observed due to current coronavirus pandemic. Travel History: COVID-19 Screening Completedno exposure or symptoms Travel or Exposure Past 30 DaysNO travel to International locations in the past 30 days Ebola AlertFor Ebola-like Symptoms: Isolate Patient and Notify Provider/Tallier For Contact: Notify Provider/Tallier Advance Directive: Advance Directive/DNRno Advance Directive Information Givenpatient/family declined [place] Fall Screen: History of falling (immediate or previous)yes (25) Secondary Diagnosisyes (15) Intravenous Therapy/ Heparin/Saline Lockyes (20) Gait/Transferringweak (10) Ambulatory Aidsnone/bedrest/nurse assist (0) Mental Statusoriented to own ability (0) Score: Low risk (<25). Moderate risk (25-44). High risk (>44).70 [place] InterventionsHIGH INTERVENTIONS *Low and Moderate Interventions Plus: * supervised toileting at all times Family Violence Screen: Are you or have you been threatened or abused physically, emotionally, or sexually by anyoneno Do you feel UNSAFE going back to the place where you are livingno Clinical assessment: Are there any apparent signs of injuries/behaviors that could be related to abuse/neglectno Social Service Consult for abuse/neglect needed this visitno Functional Screen: Functional Screen: In the recent/past 2-4 weeks, patient or family have noticedno issues that require a speech/language consult at this time AM-PAC- Basic Mobility/Daily Activity: Patient baseline bedboundno Turning from your back to your side while in a flat bed without using bedrailsa little Moving from lying on your back to sitting on the side of a flat bed without using bedrailsa little Moving to and from bed to chair (including a wheelchair)a little Standing up from a chair using your arms (e.g. wheelchair or bedside chair)a little To walk in hospital rooma little Climbing 3-5 steps with railinga little Basic Mobility - Total Score18 Learning Assessment (Patient): Patient is Able to be Assessed for Learningyes Factors Influencing Readiness to Learnpain Factors that Impact Ability to Learnnone Devices/Methods Used to Communicatenone Learning Preferencesskill demonstration; verbal instruction Cultural Considerationsnone Developmental Considerationsnone Lutheran Considerationsnone Learning Assessment (Other Learner): Other learner availableno Depression Screen: During the past month, have you often been bothered by feeling down, depressed or hopelessno During the past month, have you often had little interest or pleasure in doing thingsno Have you had any thoughts of harming anyone elseno [place] Suicide: Risk Screen Not Applicable/Able to Answerable to be screened In the Past Month: Have you wished you were or could go to sleep and not wake upno(1) In the Past Month: Have you had any actual thoughts of killing yourself no(1) Lifetime: Have you ever done, started to do, or prepared to do anything to end your lifeno(1) [place] Suicide Risknegative Adult Nutrition Screen: Have you recently lost weight without tryingno Have you been eating poorly because of a decreased appetiteno Malnutrition Screening Tool Score0 Malnutrition Screening Tool RiskMST = 0 or 1 Not at risk. Eating well with little or no weight loss Nutrition Consult needed this visitno Can Patient Participate in Room Serviceyes Patient requires Paper Dishes/Plastic Utensilsno Pain Screen: Pain Scalenumerical 0-10 Pain Scale Educationteaching provided Current Pain Level8 = Severe Acceptable Pain Level3 = Mild Expression of Pain (nonverbal)verbalization Lifestyle Changes/Adaptations in Response to Paindecreased activity level Chronic Painyes Usual Pain Rating at Rest3 Usual Pain Rating with Activity6 Chronic Head/Neck pain locationgeneralized Spiritual Screen: Are there any cultural, spiritual, gnosticism practices/values/needs that are important for us to knowno CAGE: [place] an [place] [place]): no Vaccinations: Vaccination - Influenza Vaccination Screen: Is it flu season (between and July 31)Yes Screening for identified contraindications to influenza vaccinationpatient already received vaccine this season Vaccination - Pneumonia Vaccination Screen: Patient has received a previous pneumonia vaccine:no/unknown... Immunocompetent persons with under (more content not included)... Normal [facility] CBCon 07-21-2021 Erythrocyte distribution width (RBC) [Ratio] 17.2 % High 11.5 - 14.5 [facility] Comment on above: Performed By: #### C BC #### [facility] [address] [place] [address] Hematocrit (Bld) [Volume fraction] 30.3 % Low 36.0 - 46.0 [facility] Comment on above: Performed By: #### C BC #### [facility] [address] [place] [address] Hemoglobin (Bld) [Mass/Vol] 8.8 g/dL Low 12.0 - 16.0 [facility] Comment on above: Performed By: #### C BC #### [facility] [address] [place] [address] MCHC (RBC) [Mass/Vol] 29.0 g/dL Low 32.0 - 36.0 [facility] Comment on above: Performed By: #### C BC #### [facility] [address] [place] [address] MCV (RBC) [Entitic vol] 89 fL Normal 80 - 100 [facility] Comment on above: Performed By: #### C BC #### [facility] [address] [place] [address] NUCLEATED RBC 0.0 /100 WBC Normal 0.0-0.0 [facility] Comment on above: Performed By: #### C BC #### [facility] [address] [place] [address] Platelets (Bld) [#/Vol] 303 10*3/uL Normal 150 - 450 [facility] Comment on above: Performed By: #### C BC #### [facility] [address] [place] [address] RBC 3.41 x10E12/L Low 4.00 - 5.20 [facility] Comment on above: Performed By: #### C BC #### [facility] [address] [place] [address] WBC (Bld) [#/Vol] 8.2 10*3/uL Normal 4.4 - 11.3 [facility] Comment on above: Performed By: #### C BC #### [facility] [address] [place] [address] Clinical Event Note-Neurosur humberto Post-operative Plan of Careon 07-21-2021 Clinical Event Note-Neurosurgery Post-operative Plan of Care Clinical Event: Clinical Event Note: TopicNeurosurgery Post-operative Plan of Care Details 50F h/o anxiety, obesity, s/p Duodenal switch procedure (2000), malabsorption, chronic anemia, fibromyalgia, chronic pain syndrome, p/w LBP, neurogenic claudication, MRI L spine T12 and L4 vertebral hemangiomas, L4-5 severe stenosis, / s/p L3/5 fusion, L4/5 laminectomy, L4 kyphoplasty Plan: JAYDA drains x2 uprights in AM (ordered) COUNTY JUDGE/Watson PTOT Preop exam: BUE/BLE 5/5 Postop exam: BUE/BLE 5/5 Electronic Signatures: Ben Denise (Resident)) (Signed 21-Jul-2021 16:27) Authored: Clinical Event Note Last Updated: 21-Jul-2021 16:27 by Ben Denise ( (Resident)) Normal [facility] Laboratory - Blood bankon ABO group Nom (Bld) Canceled [facility] Work Phone: Blood group antibody screen Ql Canceled MG-Neurosur humberto-[facility] Work Phone: Rh immune globulin screen (Bld) [Interp] Canceled MG-Neurosu r humberto-[facility] Work Phone: Laboratory - Chemistry and C hemistry - challengeon 07-21-2021 Anion gap 4 (BldA) [Moles/Vol] 8 mmol/L below low threshold 10 - 25 [facility]-Neurosur humberto-[facility] Work Phone: Base excess Calc (Bld) [Moles/Vol] -4.5000 mmol/L below low threshold -2.0 - 3.0 [facility]Neurosur humberto[facility] Work Phone: Calcium.ionized (BldA) [Moles/Vol] 1.19 mmol/L See Below MG-Neurosur humberto-[facility] Work Phone: Comment on above: Reference Range: 1.1 0 - 1.33 Chloride (BldA) [Moles/Vol] 113 mmol/L above high threshold 98 - 107 [facility]Neurosur humberto[facility] Work Phone: CO2 (Bld) [Partial pressure] 34 mm[Hg] below low threshold 38 - 42 [facility]-Neurosur humberto-[facility] Work Phone: Glucose [Mass/Vol] 118 mg/dL above high threshold 74 - 99 [facility]Neurosur humberto[facility] Work Phone: HCO3 (Bld) [Moles/Vol] 20.1 mmol/L below low threshold See Below [facility]-Neurosur humberto-[facility] Work Phone: Comment on above: Reference Range: 22. 0 - 26.0 Lactate (BldA) [Moles/Vol] 0.5 mmol/L 0.4 - 2.0 [facility]-Neurosur humberto-[facility] Work Phone: [phone] Oxygen (Bld) [Partial pressure] 194 mm[Hg] above high threshold 85 - 95 [facility]-Neurosur humberto-[facility] Work Phone: [phone] Oxyhemoglobin (BldA) [Mass fraction] 89.8 % below low threshold See Below MG-Neurosur humbetro-[facility] Work Phone: [phone] Comment on above: Reference Range: 94. 0 - 98.0 pH (Bld) 7.38 [pH] See Below MG-Neurosur humberto-[facility] Work Phone: [phone] Comment on above: Reference Range: 7.3 8 - 7.42 Potassium (BldA) [Moles/Vol] 4.7 mmol/L 3.5 - 5.3 [facility] Work Phone: [phone] Sodium (BldA) [Moles/Vol] 136 mmol/L 136 - 145 [facility]-Neurosur humberto-[facility] Work Phone: [phone] Anion gap 4 (BldA) [Moles/Vol] 11 mmol/L 10 - 25 [facility]urosur humberto[facility] Work Phone: [phone] Base excess Calc (Bld) [Moles/Vol] -8.5000 mmol/L below low threshold -2.0 - 3.0 [facility]Neurosur humberto[facility] Work Phone: [phone] Calcium.ionized (BldA) [Moles/Vol] 1.23 mmol/L See Below [facility]-Neurosur humberto-[facility] Work Phone: Comment on above: Reference Range: 1.1 0 - 1.33 Chloride (BldA) [Moles/Vol] 112 mmol/L above high threshold 98 - 107 [facility]Neurosur humberto[facility] Work Phone: [phone] CO2 (Bld) [Partial pressure] 40 mm[Hg] 38 - 42 [facility]Neurosur humberto[facility] Work Phone: [phone] Glucose [Mass/Vol] 108 mg/dL above high threshold 74 - 99 [facility]sur humberto[facility] Work Phone: [phone] HCO3 (Bld) [Moles/Vol] 17.9 mmol/L below low threshold See Below [facility]-Neurosur humberto[facility] Work Phone: [phone] Comment on above: Reference Range: 22. 0 - 26.0 Lactate (BldA) [Moles/Vol] 0.5 mmol/L 0.4 - 2.0 [facility]Neurosur humberto[facility] Work Phone: [phone] Oxygen (Bld) [Partial pressure] 185 mm[Hg] above high threshold 85 - 95 [facility]Neurosur humberto[facility] Work Phone: [phone] Oxyhemoglobin (BldA) [Mass fraction] 93.8 % below low threshold See Below [facility]-Neurosur humberto[facility] Work Phone: [phone] Comment on above: Reference Range: 94. 0 - 98.0 pH (Bld) 7.26 [pH] below low threshold See Below [facility]-Neurosur humberto[facility] Work Phone: [phone] Comment on above: Reference Range: 7.3 8 - 7.42 Potassium (BldA) [Moles/Vol] 4.5 mmol/L 3.5 - 5.3 [facility]Neurosur humberto[facility] Work Phone: [phone] Sodium (BldA) [Moles/Vol] 136 mmol/L 136 - 145 [facility]sur humberto[facility] Work Phone: [phone] Anion gap 4 (BldA) [Moles/Vol] 12 mmol/L 10 - 25 [facility]urosur humberto[facility] Work Phone: [phone] Base excess Calc (Bld) [Moles/Vol] -8.4000 mmol/L below low threshold -2.0 - 3.0 [facility]Neurosur humberto[facility] Work Phone: Calcium.ionized (BldA) [Moles/Vol] 1.20 mmol/L See Below [facility]-Neurosur humberto[facility] Work Phone: Comment on above: Reference Range: 1.1 0 - 1.33 Chloride (BldA) [Moles/Vol] 112 mmol/L above high threshold 98 - 107 [facility]Neurosur humberto[facility] Work Phone: CO2 (Bld) [Partial pressure] 35 mm[Hg] below low threshold 38 - 42 [facility] Work Phone: Glucose [Mass/Vol] 89 mg/dL 74 - 99 MG-Alejandrina rosur humberto-[facility] Work Phone: HCO3 (Bld) [Moles/Vol] 17.2 mmol/L below low threshold See Below [facility]Neurosur humberto[facility] Work Phone: Comment on above: Reference Range: 22. 0 - 26.0 Lactate (BldA) [Moles/Vol] 0.3 mmol/L below low threshold 0.4 - 2.0 [facility] Work Phone: Oxygen (Bld) [Partial pressure] 204 mm[Hg] above high threshold 85 - 95 [facility]sur [facility]to[facility] Work Phone: Oxyhemoglobin (BldA) [Mass fraction] 91.4 % below low threshold See Below [facility]-Neurosur humberto[facility] Work Phone: Comment on above: Reference Range: 94. 0 - 98.0 pH (Bld) 7.30 [pH] below low threshold See Below [facility]-Neurosur humberto[facility] Work Phone: Comment on above: Reference Range: 7.3 8 - 7.42 Potassium (BldA) [Moles/Vol] 3.9 mmol/L 3.5 - 5.3 [facility]sur humberto[facility] Work Phone: Sodium (BldA) [Moles/Vol] 137 mmol/L 136 - 145 [facility]sur hum[facility]to[facility] Work Phone: Laboratory - Hematology and Cell countson 07-21-2021 Hematocrit Est (Bld) [Volume fraction] 27.0 % below low threshold See Below [facility]-Neurosur humberto[facility] Work Phone: Comment on above: Reference Range: 36. 0 - 46.0 Hemoglobin (Bld) [Mass/Vol] 9.0 g/dL below low threshold See Below [facility]-Neurosur humberto[facility] Work Phone: Comment on above: Reference Range: 12. 0 - 16.0 Erythrocyte distribution width (RBC) [Ratio] 17.2 % above high threshold See Below [facility]-Neurosur humberto[facility] Work Phone: Comment on above: Reference Range: 11. 5 - 14.5 Hematocrit (Bld) [Volume fraction] 30.3 % below low threshold See Below [facility]-Neurosur humberto[facility] Work Phone: [phone] Comment on above: Reference Range: 36. 0 - 46.0 Hemoglobin (Bld) [Mass/Vol] 8.8 g/dL below low threshold See Below [facility]Neurosur humberto[facility] Work Phone: Comment on above: Reference Range: 12. 0 - 16.0 MCHC (RBC) [Mass/Vol] 29.0 g/dL below low threshold See Below [facility]-Neurosur humberto[facility] Work Phone: [phone] Comment on above: Reference Range: 32. 0 - 36.0 MCV (RBC) [Entitic vol] 89 fL 80 - 100 [facility]sur [facility]to[facility] Work Phone: Platelets (Bld) [#/Vol] 303 10*3/uL 150 - 450 [facility] Work Phone: RBC (Bld) [#/Vol] 3.41 {x10E12/L} below low threshold See Below [facility]-Neurosur humberto[facility] Work Phone: Comment on above: Reference Range: 4.0 0 - 5.20 WBC (Bld) [#/Vol] 8.2 10*3/uL 4.4 - 11.3 MG-Alejandrina rosur humberto[facility] Work Phone: Hematocrit Est (Bld) [Volume fraction] 23.0 % below low threshold See Below [facility]-Neurosur humberto[facility] Work Phone: Comment on above: Reference Range: 36. 0 - 46.0 Hemoglobin (Bld) [Mass/Vol] 7.7 g/dL below low threshold See Below [facility]-Neurosur humberto[facility] Work Phone: Comment on above: Reference Range: 12. 0 - 16.0 Hematocrit Est (Bld) [Volume fraction] 28.0 % below low threshold See Below [facility]-Neurosur humberto[facility] Work Phone: Comment on above: Reference Range: 36. 0 - 46.0 Hemoglobin (Bld) [Mass/Vol] 9.3 g/dL below low threshold See Below [facility]-Neurosur humberto[facility] Work Phone: Comment on above: Reference Range: 12. 0 - 16.0 No Panel Informationon 07-21 Please click on the link to view the study images Normal [facility]Neurosur humberto[facility] Work Phone: 0.0 {/100_WBC} 0.0-0.0 [facility]-Neurosu r humberto[facility] Work Phone: ORDER RECD [facility]Neurosur hum[facility]to[facility] Work Phone: Operative Reports - [facility] [place] [address] Patient Name: TAMMY. Jo-Ann CROFT : 1970 Date of Service: 07/21/2021 [facility] Patient Type: I Surgeon: Tri Awad MD Report Type: Operative Reports PREOPERATIVE DIAGNOSIS: Lumbar stenosis, neurogenic claudication, L4 vertebral hemangioma. POSTOPERATIVE DIAGNOSIS: Lumbar stenosis, neurogenic claudication, L4 vertebral hemangioma. OPERATION/PROCEDURE: L4 laminectomy L3-5 posterolateral arthrodesis with pedicle screw instrumentation L4 kyphoplasty SURGEON: Tri Awad MD BODY SHOP TECHNICIAN(S): Ben Denise MD ANESTHESIA: general PROCEDURE DETAILS: The patient was brought into the operating room theater. A team Huddle was performed including verification of the patient's name, MRN, date of , allergies, procedure to be performed. The patient was intubated without complication. The patient was flipped into the prone position onto a Jose four-post table. The area was prepped and draped in the usual sterile fashion. Two spinal needles were used to localize the wound and create a midline incision from the L, approximately at level of L2-L5. After performing a preincision pause, the incision was localized with 1% lidocaine with epi. A midline incision was made using a 10 blade. Subperiosteal dissection was performed in order to expose the L2 spinous process, L3 to 5 spinous processes, and joints of L3-4, L4-5. An O-arm spin was performed with the spinous process clamped at L2. Bilateral pedicle screws were placed at the L3 pedicle and L5 pedicle. We chose to skip the L4 pedicle because the L4 vertebral hemangioma was noted to involve the bilateral pedicles extensively on the O-arm CT spin. After placing the pedicle screws, we performed an L4-5 laminectomy for central decompression. The thecal sac was noted to be well decompressed. After the decompression, we chose to perform bipedicular kyphoplasties at the L4 level. We performed the kyphoplasties under intraoperative fluoroscopy. This was noted to stay within the vertebral bodies and did not extend past the vertebral body. After the kyphoplasties were performed, we inserted the rods and caps and final tightened accordingly. We decorticated the transverse processes. Bone graft was laid at the lateral gutters bilaterally. After obtaining hemostasis, we inserted two 15 round drains. Vancomycin powder was inserted into the wound. Multilayer closure was performed after obtaining final x-ray shot, which showed sufficient placements of rods and screws. The wound was closed in multilayered fashion. The two 15 round drains were connected to a single Hemovac and were secured with retention 2-0 silk sutures. After removing the Ioban, the patient's superior aspect of the wound and left flank region were noted to be abrased. This was likely due to her thinning of her skin from her prior heat pads. We placed Telfa, bacitracin over the denuded areas and put [place] dressings over the wounds. The patient was extubated without complication and returned to the postanesthesia care unit. Ben Denise MD for Tri Awad MD EST TT: 07/21/2021 06:03 PM EST DICTATION NUMBER: [id number] SPHERIS JOB NUMBER: [id number] CC: Tri Awad MD, Joey Daniel MD, Electronic Signatures: Tri Awad) (Signed on 24-Jul-2021 16:43) Authored Unsigned, Draft (SYS GENERATED) (Entered on 21-Jul-2021 18:03) Entered Last Updated: 24-Jul-2021 16:43 by Tri Awad) [facility] Order Reconciliationon 07-21 Order Reconciliation Page 1 Admission Reconciliation Document Reconciliation Type: Admission from OR requested on behalf of Dilcia Mendoza (Advanced Practice Nurse) done by Dilcia Mendoza (PHARMACY ACCOUNT DIRECTOR-[facility]) Admission from OR - Reconciliation: 21-Jul-2021 16:56 by: Ben Denise (Resident)) Admission from OR - Reset to Incomplete: 22-Jul-2021 10:28 by: Dilcia Mendoza (PHARMACY ACCOUNT DIRECTOR-[facility]) Admission from OR - Reconciliation: 22-Jul-2021 10:34 by: Dilcia Mendoza (PHARMACY ACCOUNT DIRECTOR-[facility]) Home MedicationsEnteredLast Dose TakenReconciled with current Order Reconciliation Comment/ Additional Information acetaminophen-hydrocodone 325 mg-5 mg oral tablet 1 tab(s) orally every 6 to 8 hours, As [id number] Reviewed and Held amitriptyline 25 mg oral tablet 1 tab(s) oral once a [id number] UNKNOWN Amitriptyline Tablet (ELAVIL)DOSE = 25 mg Oral At Bedtime amitriptyline 25 mg oral tablet continued as the inpatient order Amitriptyline cholecalciferol 1250 mcg (50,000 intl units) oral capsule 1 cap(s) orally once a week on Reviewed and Held DULoxetine 30 mg oral delayed release capsule 1 tab(s) oral once a day at [id number] Reviewed and Held DULoxetine 60 mg oral delayed release capsule 1 tab(s) oral once a day in the [id number] 22 Reviewed and Held estradiol-norethindrone 1 mg-0.5 mg oral tablet 1 tab(s) oral once a day Reviewed and Held Lyrica 100 mg oral capsule 1 cap(s) oral 3 times a [id number] Pregabalin Capsule (LYRICA)DOSE = 100 mg Oral 3 Times a DayLyrica 100 mg oral capsule continued as the inpatient order Pregabalin multivitamin Multiple Vitamins oral tablet 1 tab(s) oral once a [id number]-Jul-2021 Multivitamin with Minerals TabletDOSE = 1 tablet(s) Oral Daily multivitamin Multiple Vitamins oral tablet reconciled with the existing inpatient order Multivitamin with Minerals Oyster Shell Calcium 500 (1250 mg calcium carbonate) oral tablet 3 tab(s) orally 2 times a [id number] Calcium Carbonate Chewable Tablet, Chewable (TUMS)DOSE = 3,000 mg Oral Every 12 HoursOyster Shell Calcium 500 (1250 mg calcium carbonate) oral tablet continued as the inpatient order Calcium Carbonate Chewable Additional Current Orders Acetaminophen Tablet (TYLENOL)DOSE = 650 mg Oral Every 4 Hours, PRN Pain - Mild (1-3) (PACU) when able to take OralClinician Notes: Nehal-operative order ONLY Acetaminophen Tablet (TYLENOL)DOSE = 650 mg Oral Every 6 Hours Ascorbic Acid Tablet (VITAMIN C)DOSE = 500 mg Oral 2 Times a Day Bisacodyl Rectal Suppository (DULCOLAX)DOSE = 10 mg Rectal Daily, PRN if no BM in the previous 36 hoursClinician Notes: once now and daily PRN ceFAZolin 2 gram/ D5W 100 mL Premix IVPB (ANCEF)Every 8 HoursRecommended Infusion Time: 10 minute(s)Stop After 3 Doses Cyclobenzaprine Tablet (FLEXERIL)DOSE = 10 mg Oral 3 Times a Day Cyclobenzaprine Tablet (FLEXERIL)DOSE = 10 mg Oral 3 Times a Day, PRN muscle spasms Docusate Capsule (COLACE)DOSE = 100 mg Oral 2 Times a Day DULoxetine Delayed Release Capsule (CYMBALTA)DOSE = 30 mg Oral Every Night DULoxetine Delayed Release Capsule (CYMBALTA)DOSE = 60 mg Oral Every Morning Fleet Adult (Sodium Phosphate) Rectal EnemaDOSE = 1 enema Rectal Daily, PRN if no BM in the previous 24 hoursClinician Notes: now and daily PRN Heparin SubCutaneous DOSE = 5,000 unit(s) SubCutaneous Every 8 HoursNotes from Pharmacy: Note Concentration Prior to Administration HYDROmorphone Injectable (DILAUDID)DOSE = 0.2 mg IntraVenous Push Every 5 Minutes, PRN Pain - Mod (4-6) (PACU) if unable to take oralClinician Notes: Nehal-operative order ONLYMax total of 4 mg regardless of dose. HYDROmorphone Injectable (DILAUDID)DOSE = 0.4 mg IntraVenous Push Every 3 Hours, PRN Pain - Severe (7-10) HYDROmorphone Injectable (DILAUDID)DOSE = 0.4 mg IntraVenous Push Every 5 Minutes, PRN Pain - Severe (7-10) (PACU)Clinician Notes: Nehal-operative order ONLYMax total of 4 mg regardless of dose. HYDROmorphone COUNTY JUDGE 25 mg/ NaCL 0.9% 50 mL (DILAUDID IV COUNTY JUDGE)DEMAND/ COUNTY JUDGE Dose = 0.2 mgDELAY/ Lockout Time Period = 6 minutesOne Hour Dose Limit = 2.6 mg/hrBREAKTHROUGH Dose: Nurse May Administer 0.6 mg Every 1 Hour PRNIf patient has received 3 Demand Doses in the Last Hour and For Pain Score > 4 out of 10Stop After 1 Days Lactated Ringers Infusion IV Bag Volume = 1,000 mL Run at: 100 mL/hr IntraVenous Clinician Notes: Nehal-operative order ONLY Lidocaine 5% TransDermal Film (LIDODERM)DOSE = 2 patch TransDermal Every 24 Hours, Apply to Low BackClinician Notes: Please place oin each side of incision Naloxone Injectable (NARCAN)DOSE = 0.2 mg IntraVenous Push Once, PRN patient is unarousable, and respiratory rate lessClinician Notes: HOLD COUNTY JUDGE Infusion and notify H.O. immediately Ondansetron Injectable (ZOFRAN)DOSE = 4 mg IntraVenous Push Every 6 Hours, PRN Nausea Ondansetron Injectab (more content not included)... Normal [facility] Patient Profile - Adult v2on 07-21-2021 Patient Profile - Adult v2 Profile: Initial Info: How to be Addressedtammy(1) Spoken Language PreferredEnglish (1) Source of Informationpatient Stated Reason for Admissionback surgery Primary Contact Name and NumberSandjuan (mom) [phone] Wants Family/Rep Notified of Admissionno Notify PCPnotify PCP Informed of Patient Visiting Rightsyes Limitations on Visitors/Phone Callsnone Arrived Fromhurt Patient Belongingsremains with patient Patient Belongings Remaining with Patientcell phone/electronics; vision aids; clothing; purse/wallet Medications Brought to Hospitalno General Health: Blood Avoidance/Restrictionsnone( 1) Previous Transfusion Reactionno(1) Weight in kg88.7 kilogram(s)(2) Weight in bag927.5 pound(s) Weight Methodactual (measured) Scale Typebed Height in cm167.4 centimeter(s)(2) Height in feet5 feet Height in inches5.91 inch(es) Height Methodheight measured BMI (kg/m2)31.652 square meter RSP Based Care: How would you like to participate in your carehelp in care as much as possible What is the number one concern for you during this hospitalizationpain What is the most important thing we can do to support you during this hospitalizationhelp with mobility and pain Is there anything we need to know to best care for emma/a Substance: Smoking Statusnever smoker Alcohol Usedenies Drug Usedenies Drug 2 Usedenies Health Mgmt: Symptoms/Conditions Managed at Homechronic pain Are You no (1) Chronic Pain Locationgeneralized Chronic Pain Aggravating Factorsactivity Chronic Pain Relieving Factorsheat; meditation; repositioning; rest Chronic Pain Management Strategiesheat application; medication therapy; positioning Chronic Pain Managementmanaged Relationship/Environ: Resource/Environmental Concernsnone Primary Source of Support/Comfortsignificant other; parent Lives Withsignificant other Living Arrangementshouse Services Anticipated at Transitionnone [facility] Significant IndicatorsComplete Information Review: Allergies, Home Meds and Significant Events have been Reviewed and Verified with Patient/Familyyes ALLERGY, INTOLERANCE, ADVERSE EVENT: Allergies: No Known Allergies: Active Electronic Signatures: PIPPA MARTE (DORA) (Signed 21-Jul-2021 21:19) Authored: Initial Info, General Health, [facility] Based Care, Substance, Health Mgmt, Relationship/Environ, Additional Information Last Updated: 21-Jul-2021 21:19 by PIPPA MARTE (DORA) References: 1. Data Referenced From Patient Profile - Preop v3 21-Jul-2021 09:00 2. Data Referenced From 1. Vital Signs 21-Jul-2021 09:00 Normal [facility] Patient Profile - Preop v3on 07-21-2021 Patient Profile - Preop v3 Patient Profile - Preop: Initial Info: Patient DemographicsName: DEANA CROFT Date: 1970 Address: [address] [place] [address] Primary Phone [phone] How to be Addressedtammy Spoken Language PreferredEnglish Stated Reason for Admissionspine surgery Primary Contact Name and Numbermom and dad stephanie [phone] Medications Brought to Hospitalno General Health: Weight in kg88.7 kilogram(s) Weight in dux435.5 pound(s) Weight Methodactual (measured) Scale Typestanding Height in feet5 feet Height in inches5.94 inch(es) Height in cm167.4 centimeter(s) Height Methodstated BMI (kg/m2)31.652 square meter Patient or Family Member Reaction to Anesthesiano previous reaction Blood Avoidance/Restrictionsnone Previous Transfusion Reactionno Health Mgmt: Symptoms/Conditions Managed at Homesee significant events Are You no (1) Are You Currently Breastfeedingno Barriers to Managing Healthnone Relationship/Environ: Lives Withsignificant other Living Arrangementshouse Resource/Environmental Concernsnone [facility] Anticipated at Transitionnone Tobacco Use: Tobacco Useno Pre-op Checklist: Arrival [id number] Procedure TypeL3-5 lami with/fusion kyphoplasty NPOyes Last Food [id number] 00:00 Last Clear Fluid [id number] 00:00 ID Band On Patientpatient ID (name) Consent Signedpending H&P Completepending Anesthesia Assessment Completedpending EKG Performedsee results tab Chest X-Ray Performedsee results tab HCG Urine TestComplete Chlorhexadine Bath Givencompleted at home, given night before surgery, completed morning of surgery Nasal Antiseptic Appliedcompleted at home, 07/21 Soap and Water Bath the Night Before Surgerynot applicable Hair Washed with Shampoonot applicable Bowel Prepno Surgical Site Infection Preventionyes Pain Scales and Managementyes Additional Information: Information Review: Allergies, Home Meds and Significant Events have been Reviewed and Verified with Patient/Familyyes Allergy, Intolerance, Adverse Event: Allergies: No Known Allergies: Active Significant Events: 21-Jul-2021 gastric bypass: Past Surgical History, Active 21-Jul-2021 choley: Past Surgical History, Active 21-Jul-2021 lithotripsy: Past Surgical History, Active 21-Jul-2021 appendectomy: Past Surgical History, Active 21-Jul-2021 fibromyalgia: Past Medical History, Active 21-Jul-2021 spinal stenosis: Past Medical History, Active 21-Jul-2021 anemia: Past Medical History, Active 21-Jul-2021 anxiety: Past Medical History, Active Electronic Signatures: Lisha Weiner (DORA) (Signed 21-Jul-2021 09:05) Authored: Initial Info, General Health, Health Mgmt, Relationship/Environ, Tobacco Use, Pre-op Checklist, Additional Information Last Updated: 21-Jul-2021 09:05 by Lisha Weiner (DORA) References: 1. Data Referenced From History and Physical - Surgical Update < 30 days 21-Jul-2021 00:00 Normal [facility] REQUEST-LEUKOREDUCED RED MARIA M LSon 07-21-2021 REQUEST-LEUKOREDUCED RED CELLS ORDER RECD Normal [facility] Comment on above: Performed By: #### C BCDF #### [facility] [address] [place] [address] TYPE + SCREENon 07-21-2021 ABO TYPE Canceled Normal [facility] Comment on above: Order Comment: TEST TYPE + SCREEN WAS CANCELLED, 07/21/2021 14:41 Accession error. Performed By: #### C OAGS #### [facility] [address] [place] [address] RH TYPE Canceled Normal [facility] Comment on above: Order Comment: TEST TYPE + SCREEN WAS CANCELLED, 07/21/2021 14:41 Accession error. Performed By: #### C OAGS #### [facility] [address] [place] [id number] TYPE + SCREENon 07-20-2021 ABO TYPE O Normal [facility] Comment on above: Performed By: #### S TAPH #### [facility] [address] [place] [address] RH TYPE Positive Normal [facility] Comment on above: Performed By: #### S TAPH #### [facility] [address] [place] [address] CORONAVIRUS 2019, SCREEN ASY MPTOMATICon 07-19-2021 SARS-CoV-2 (COVID-19) RNA LORIE+probe Ql (Unsp spec) Not detected Normal Not Detected [facility] Comment on above: Result Comment: . This assay is designed to detect the N, ORF1ab and/or S genes of SARS-CoV-2 via nucleic acid amplification. A Negative (NOT DETECTED) result does not preclude 2019-nCoV infection since the adequacy of sample collection and/or low viral burden may result in presence of viral nucleic acids below the clinical sensitivity of this test method. Negative (NOT DETECTED) result should not be used as the sole basis for treatment or other patient management decisions. Rather negative results should be combined with clinical observations, patient history, and epidemiological information to make patient management decisions. Fact sheet for providers: https://www.fda.gov/media/749892/download Fact sheet for patients: https://www.fda.gov/media/784286/download This test has received FDA Emergency Use Authorization (EUA) and has been verified by [facility] ([facility]). This test is only authorized for the duration of time that circumstances exist to justify the authorization of the emergency use of in vitro diagnostic tests for the detection of SARS-CoV-2 virus and/or diagnosis of COVID-19 infection under section 564(b)(1) of the Act, 21 U.S.C. 360bbb-3(b)(1), unless the authorization is terminated or revoked sooner. [facility] is certified under CLIA-88 as qualified to perform high complexity testing. Testing is performed in the [facility] laboratories located at [id number] [place] [address]. Performed By: #### C OVSC #### [facility] [address] [place] [id number] Lab Specimen Source Nasal, Nasopharyngeal Normal [facility] Comment on above: Performed By: #### C OVSC #### [facility] [address] [place] [id number] Coronavirus 2019 RNA by PCR, Screening Asymptomticon 07-19-2021 Coronavirus 2019 RNA by PCR, Screening Asymptomtic Not detected Normal See Below [facility] Work Phone: Comment on above: SOURCE: Nasal, Nasop haryngealReference Range: Not Detected.This assay is designed to detect the N, ORF1ab and/or S genes of SARS-CoV-2 via nucleic acid amplification. A Negative (NOT DETECTED) result does not preclude 2019-nCoV infection since the adequacy of sample collection and/or low viral burden may result in presence of viral nucleic acids below the clinical sensitivity of this test method. Negative (NOT DETECTED) result should not be used as the sole basis for treatment or other patient management decisions. Rather negative results should be combined with clinical observations, patient history, and epidemiological information to make patient management decisions.Fact sheet for providers: https://www.fda.gov/media/881238/downloadFact sheet for patients: https://www.fda.gov/media/378160/downloadThis test has received FDA Emergency Use Authorization (EUA) and has been verified by [facility] ([facility]). This test is only authorized for the duration of time that circumstances exist to justify the authorization of the emergency use of in vitro diagnostic tests for the detection of SARS-CoV-2 virus and/or diagnosis of COVID-19 infection under section 564(b)(1) of the Act, 21 U.S.C. 360bbb-3(b)(1), unless the authorization is terminated or revoked sooner. [facility] is certified under CLIA-88 as qualified to perform high complexity testing. Testing is performed in the [facility] laboratories located at [address] [place] [address]. Covid 19 Resultson 2 SARS-CoV-2 (COVID-19) RNA LORIE+probe Ql (Unsp spec) NEGATIVE COVID-19 Test Coronaviruses are common world-wide and are the cause of many common colds. SARS-COV2 is a new coronavirus that began circulating worldwide in 2019 so we are calling it COVID-19. It has been estimated that four out of five patients with COVID-19 will recover at home without the need for medical attention. Symptoms of COVID-19 may include cough, fever, shortness of breath, loss of taste or smell and other flu-like symptoms including chills, sore muscles, sore throat, and headache. Severe illness is more common in older people and people with other health problems such as high blood pressure, obesity, and immune system problems. If the test is positive, you have COVID-19. You will be contacted by the ordering physicians office and instructed to remain on home isolation, in accordance with CDC guidelines. You may also be contacted by the [facility] to see if any of your close contacts may have been exposed to the virus and need to quarantine. If the test is negative, you likely do not have COVID-19 at this time, but you still may have a different illness that can spread to other people (like Influenza, or the Flu) and could still be at risk for getting COVID-19. We recommend that you stay away from other people to limit the spread of illness until your symptoms are improving and you are fever-free for 24 hours without the use of fever lowering medications such as acetaminophen or ibuprofen. No test is 100% accurate so if you are still concerned you may have COVID-19, talk to your doctor about the need to continue to stay away from others. Medicines Unless your provider told you not to use the following: Acetaminophen (Tylenol and others) is generally safe. Anti-inflammatory medications, such as Ibuprofen (Advil or Motrin) or Naproxen (Aleve) can also be used. Eobe-khj-mwyxgvp cough and cold medicines can be used according to the instructions on the package. Some zhii-jpk-iizxgfe medicines also contain acetaminophen. Make sure you are not taking more than your recommended dose. For those not hospitalized, there is no specific treatment available for this illness. Antibiotics do not treat Coronaviruses. Follow-Up Follow up with your doctor by scheduling a virtual visit or consider follow-up at one of our urgent care fever clinics. If you are having difficulty breathing, or are very weak and having difficulty standing, this is a medical emergency. Call 911 or have someone take you to the nearest emergency room immediately. If possible, wear a facemask. Additional guidance from the CDC for patients who tested POSITIVE for COVID-19 How to isolate: Isolate yourself in a specific room at home and limit your contact with others. Use a separate bathroom from other members of the household, when possible. Leave home only to get essential medical care. Do not go to work, school or public areas. Avoid using public transportation, ride-sharing, or taxis. Restrict contact with pets and other animals. If you must care for your pet or be around animals while you are sick, wash your hands before and after your interaction and wear a facemask. Make sure that shared spaces in the home have good airflow, such as by an air conditioner or an opened window, weather permitting. Personal Hygiene Procedures: Wear a face mask when in the same room as other people or pets. If a face mask interferes with your breathing, others should wear a mask when sharing space with you. Frequent hand-washing: wash your hands with soap and water for at least 20 seconds. If soap and water are not available, use alcohol-based hand library information technician. Avoid touching your eyes, nose, and mouth with unwashed hands. Household Hygiene Procedures: Avoid sharing personal household items such as dishes, glassware, cups, eating utensils, towels or bedding with other people or pets in your home. After use, these items should be washed with soap and hot water. Disinfect all high-touch surfaces every day with antibacterial cleaning solutions such as Lysol wipes, bleach, cleansers, etc. High-touch surfaces include tabletops, doorknobs, bathroom fixtures, toilets, phones, keyboards, tablets and bedside tables. Immediately clean any surfaces that may have blood, poop or body fluids on them, using antibacterial cleaning solutions such as Lysol wipes, bleach, cleansers, etc. If clothing or bedding come into contact with blood, poop or body fluids, they should be washed immediately. Follow the directions on the laundry detergent and clothing labels but hot water is recommended when possible. Stopping home isolation precautions: If possible, consult your doctor before stopping home isolation precautions. According to the CDC, you can discontinue home isolation precautions when you have met both of these criteria: Your fever and respiratory symptoms have been gone for 24 desi (more content not included)... Normal [facility] Laboratory - Blood bankon ABO group Nom (Bld) O [facility]-Ne urosur [facility] Work Phone: Blood group antibody screen Ql Negative [facility] Work Phone: Rh immune globulin screen (Bld) [Interp] Positive [facility] Work Phone: BASIC METABOLIC PANELon 07-01 Anion gap [Moles/Vol] 16 mmol/L Normal 10 - 20 [facility] Comment on above: Performed By: #### S TAPH #### [facility] [address] [place] [address] Calcium [Mass/Vol] 8.3 mg/dL Low 8.6 - 10.6 [facility] Comment on above: Performed By: #### S TAPH #### [facility] [address] [place] [address] Chloride [Moles/Vol] 107 mmol/L Normal 98 - 107 [facility] Comment on above: Performed By: #### S TAPH #### [facility] [address] [place] [address] Creatinine [Mass/Vol] 1.06 mg/dL High 0.50 - 1.05 [facility] Comment on above: Performed By: #### S TAPH #### [facility] [address] [place] [address] GFR/1.73 sq M.predicted among non-blacks MDRD (S/P/Bld) [Vol rate/Area] 63 mL/min/{1.73_m2} Normal >90 [facility] Comment on above: Result Comment: CALC ULATIONS OF ESTIMATED GFR ARE PERFORMED USING THE 2020 CKD-EPI STUDY REFIT EQUATION WITHOUT THE RACE VARIABLE FOR THE IDMS-TRACEABLE CREATININE METHODS. https://jasn.asnjournals.org/content//ASN.24545 76947 Performed By: #### S TAPH #### [facility] [address] [place] [address] Glucose [Mass/Vol] 87 mg/dL Normal 74 - 99 [facility] Comment on above: Performed By: #### S TAPH #### [facility] [address] [place] [address] HCO3 (Bld) [Moles/Vol] 20 mmol/L Low 21 - 32 [facility] Comment on above: Performed By: #### S TAPH #### [facility] [address] [place] [address] Potassium [Moles/Vol] 5.5 mmol/L High 3.5 - 5.3 [facility] Comment on above: Performed By: #### S TAPH #### [facility] [address] [place] [address] Sodium [Moles/Vol] 137 mmol/L Normal 136 - 145 [facility] Comment on above: Performed By: #### S TAPH #### [facility] [address] [place] [address] Urea nitrogen [Mass/Vol] 19 mg/dL Normal 6 - 23 [facility] Comment on above: Performed By: #### S TAPH #### [facility] [address] [place] [address] CBCon 07-11-2021 Erythrocyte distribution width (RBC) [Ratio] 17.9 % High 11.5 - 14.5 [facility] Comment on above: Performed By: #### C OAGS #### [facility] [address] [place] [address] Hematocrit (Bld) [Volume fraction] 38.7 % Normal 36.0 - 46.0 [facility] Comment on above: Performed By: #### C OAGS #### [facility] [address] [place] [address] Hemoglobin (Bld) [Mass/Vol] 10.8 g/dL Low 12.0 - 16.0 [facility] Comment on above: Performed By: #### C OAGS #### [facility] [address] [place] [address] MCHC (RBC) [Mass/Vol] 27.9 g/dL Low 32.0 - 36.0 [facility] Comment on above: Performed By: #### C OAGS #### [facility] [address] [place] [address] MCV (RBC) [Entitic vol] 91 fL Normal 80 - 100 [facility] Comment on above: Performed By: #### C OAGS #### [facility] [address] [place] [address] NUCLEATED RBC 0.0 /100 WBC Normal 0.0-0.0 [facility] Comment on above: Performed By: #### C OAGS #### [facility] [address] [place] [address] Platelets (Bld) [#/Vol] 443 10*3/uL Normal 150 - 450 [facility] Comment on above: Performed By: #### C OAGS #### [facility] [address] [place] [address] RBC 4.23 x10E12/L Normal 4.00 - 5.20 [facility] Comment on above: Performed By: #### C OAGS #### [facility] [address] [place] [address] WBC (Bld) [#/Vol] 7.3 10*3/uL Normal 4.4 - 11.3 [facility] Comment on above: Performed By: #### C OAGS #### [facility] [address] [place] [address] COAGULATION SCREENon 022 aPTT Coag (Bld) [Time] 41 s High 26 - 39 [facility] Comment on above: Result Comment: Note new reference range as of 04/01/2021 at 10:00am. Performed By: #### C OAGS #### [facility] [address] [place] [address] PT Coag (PPP) [Time] 13.5 s High 9.8 - 13.4 [facility] Comment on above: Result Comment: Note new reference range as of 04/01/2021 at 10:00am. Performed By: #### C OAGS #### [facility] [address] [place] [address] PT, INR 1.2 High 0.9 - 1.1 [facility] Comment on above: Performed By: #### C OAGS #### [facility] [address] [place] [address] Cult, Urineon 07-11-2021 Bacteria identified Cx Nom (U) Abnormal [facility] Work Phone: Laboratory - Blood bankon ABO group Nom (Bld) O [facility] Work Phone: Blood group antibody screen Ql Negative [facility] Work Phone: Rh immune globulin screen (Bld) [Interp] Positive [facility] Work Phone: Laboratory - Chemistry and C hemistry - challengeon 07-11-2021 Anion gap [Moles/Vol] 16 mmol/L 10 - 20 [facility] Work Phone: Calcium [Mass/Vol] 8.3 mg/dL below low threshold 8.6 - 10.6 [facility] Work Phone: Chloride [Moles/Vol] 107 mmol/L 98 - 107 [facility]-N eurosur [facility] Work Phone: CO2 [Moles/Vol] 20 mmol/L below low threshold 21 - 32 [facility] Work Phone: Creatinine [Mass/Vol] 1.06 mg/dL above high threshold See Below [facility] Work Phone: Comment on above: Reference Range: 0.5 0 - 1.05 Glucose [Mass/Vol] 87 mg/dL 74 - 99 [facility]Alejandrina ro[facility] Work Phone: Potassium [Moles/Vol] 5.5 mmol/L above high threshold 3.5 - 5.3 [facility] Work Phone: Sodium [Moles/Vol] 137 mmol/L 136 - 145 [facility] Work Phone: Urea nitrogen [Mass/Vol] 19 mg/dL 6 - 23 [facility] Work Phone: Laboratory - Coagulationon 0 07-11-2021 aPTT Coag (PPP) [Time] 41 s above hig h threshold 26 - 39 [facility] Work Phone: Comment on above: Note new reference r rebekah as of 04/01/2021 at 10:00am. INR Coag (PPP) [Relative time] 1.2 {INR} above high threshold 0.9 - 1.1 [facility] Work Phone: PT Coag (PPP) [Time] 13.5 s above high threshold 9.8 - 13.4 [facility] Work Phone: Comment on above: Note new reference r rebekah as of 04/01/2021 at 10:00am. Laboratory - Hematology and Cell countson 07-11-2021 Erythrocyte distribution width (RBC) [Ratio] 17.9 % above high threshold See Below [facility] Work Phone: Comment on above: Reference Range: 11. 5 - 14.5 Hematocrit (Bld) [Volume fraction] 38.7 % See Below [facility] Work Phone: Comment on above: Reference Range: 36. 0 - 46.0 Hemoglobin (Bld) [Mass/Vol] 10.8 g/dL below low threshold See Below [facility] Work Phone: Comment on above: Reference Range: 12. 0 - 16.0 MCHC (RBC) [Mass/Vol] 27.9 g/dL below low threshold See Below [facility] Work Phone: Comment on above: Reference Range: 32. 0 - 36.0 MCV (RBC) [Entitic vol] 91 fL 80 - 100 [facility] Work Phone: Platelets (Bld) [#/Vol] 443 10*3/uL 150 - 450 [facility] Work Phone: RBC (Bld) [#/Vol] 4.23 {x10E12/L} See Below [facility] Work Phone: Comment on above: Reference Range: 4.0 0 - 5.20 WBC (Bld) [#/Vol] 7.3 10*3/uL 4.4 - 11.3 [facility] Work Phone: MRSA Screenon 07-11-2021 Staphylococcus sp identified Org specific cx Nom (Unsp spec) [facility] Work Phone: No Panel Informationon 07-11 63 {mL/min/1.73m2} >90 [facility]rina [facility] Work Phone: Comment on above: CALCULATIONS OF JAGRUTI MATED GFR ARE PERFORMED USING THE 2020 CKD-EPI STUDY REFIT EQUATION WITHOUT THE RACE VARIABLE FOR THE IDMS-TRACEABLE CREATININE METHODS.https://jasn.asnjournals.org/content//A SN.6067044986 0.0 {/100_WBC} 0.0-0.0 [facility] Work Phone: STAPH/MRSA SCREENon 07-12-19 STAPH/MRSA SCREEN PATIENT: DEANA CROFT LOCATION: [facility]#: [id number] : 68 AGE: SEX: F ORDERED BY: TRI AWAD SOURCE: ANTERIOR NARES COLLECTED: 07/11/21 14:38 ANTIBIOTICS AT [facility].: RECEIVED : 07/11/21 18:06 SITE: Nasal R E S U L T S STAPH/MRSA SCREEN FINAL 07/13/21 09:17 NO Staphylococcus aureus ISOLATED. Normal [facility] Comment on above: Performed By: #### U RINC #### [facility] [address] [place] [address] TYPE + SCREENon 07-11-2021 ABO TYPE O Normal [facility] Comment on above: Performed By: #### C OAGS #### [facility] [address] [place] [address] RH TYPE Positive Normal [facility] Comment on above: Performed By: #### C OAGS #### [facility] [address] [place] [address] UA MICROSCOPICon 07-11-2021 BACTERIA 4+ /HPF Abnormal [facility] Comment on above: Performed By: #### C OAGS #### [facility] [address] [place] [id number] Mucus Ql (Urine sed) 1+ /LPF Normal [facility] Comment on above: Performed By: #### C OAGS #### [facility] [address] [place] [address] RBC 30 /HPF Abnormal 0-5 [facility] Comment on above: Performed By: #### C OAGS #### [facility] [address] [place] [address] SQUAMOUS EPITH. CELLS 6 /HPF Normal [facility] Comment on above: Performed By: #### C OAGS #### [facility] [address] [place] [address] WBC (U) [#/Vol] /uL Abnormal 0-5 [facility] Comment on above: Performed By: #### C OAGS #### [facility] [address] [place] [address] URINALYSIS WITH CULTURE IF I NDICATEDon 07-11-2021 Appearance (U) HAZY Normal CLEAR [facility] Comment on above: Performed By: #### U ARFX #### [facility] [address] [place] [address] Bilirubin Ql (U) Negative Normal NEGATIVE [facility] Comment on above: Performed By: #### U ARFX #### [facility] [address] [place] [address] Color (U) YELLOW Normal STRAW,YELL OW [facility] Comment on above: Performed By: #### U ARFX #### [facility] [address] [place] [address] Glucose Ql (U) Negative Normal NEGATIVE [facility] Comment on above: Performed By: #### U ARFX #### [facility] [address] [place] [address] Hemoglobin Ql (U) Negative Normal NEGATIVE [facility] Comment on above: Performed By: #### U ARFX #### [facility] [address] [place] [address] Ketones Ql (U) Negative Normal NEGATIVE [facility] Comment on above: Performed By: #### U ARFX #### [facility] [address] [place] [address] Leukocyte esterase Test strip Ql (U) LARGE (3+) Abnormal NEGATIVE [facility] Comment on above: Performed By: #### U ARFX #### [facility] [address] [place] [address] Nitrite Ql (U) Positive Abnormal NEGATIVE [facility] Comment on above: Performed By: #### U ARFX #### [facility] [address] [place] [address] pH (U) 5.0 [pH] Normal 5.0 - 8.0 [facility] Comment on above: Performed By: #### U ARFX #### [facility] [address] [place] [address] Protein Ql (U) 100 (2+) Abnormal NEGATIVE [facility] Comment on above: Performed By: #### U ARFX #### [facility] [address] [place] [address] Specific gravity (U) [Rel density] 1.024 Normal 1.005 - 1.035 [facility] Comment on above: Performed By: #### U ARFX #### [facility] [address] [place] [address] Urobilinogen (U) [Mass/Vol] mg/dL Normal 0.0 - 1.9 [facility] Comment on above: Performed By: #### U ARFX #### [facility] [address] [place] [address] Color (U) YELLOW See Below [facility] Work Phone: Comment on above: Reference Range: STR AW,YELLOW Glucose Ql (U) Negative NEGATIVE MG-Neurosu r [facility] Work Phone: [phone] Ketones Ql (U) Negative NEGATIVE [facility] Work Phone: [phone] Leukocyte esterase Test strip Ql (U) LARGE (3+) Abnormal NEGATIVE MG-Neurosur [facility] Work Phone: [phone] pH (U) 5.0 [pH] 5.0 - 8.0 [facility] Work Phone: [phone] Protein (U) [Mass/Vol] 100 (2+) Abnormal NEGATIVE [facility] Work Phone: RBC (U) [#/Vol] Negative NEGATIVE [facility]s [facility] Work Phone: Specific gravity (U) [Rel density] 1.024 1 See Below [facility] Work Phone: Comment on above: Reference Range: 1.0 05 - 1.035 URINALYSIS WITH CULTURE IF INDICATED Positive Abnormal NEGATIVE [facility] Work Phone: URINALYSIS WITH CULTURE IF INDICATED <2.0 0.0 - 1.9 [facility] Work Phone: URINALYSIS WITH CULTURE IF INDICATED Negative NEGATIVE [facility] Work Phone: URINALYSIS WITH CULTURE IF INDICATED HAZY CLEAR [facility] Work Phone: URINE CULTURE,BACTERIALon URINE CULTURE,BACTERIAL PATIENT: DEANA CROFT LOCATION: [facility]#: [id number] : 68 AGE: SEX: F ORDERED BY: TRI AWAD SOURCE: URINE COLLECTED: 07/11/21 14:41 ANTIBIOTICS AT [facility].: RECEIVED : 07/11/21 17:22 SITE: R E S U L T S URINE CULTURE,BACTERIAL FINAL 07/13/21 12:56 ISOLATE1 : Escherichia coli >100,000 CFU/ML Organism E coli Antibiotic BP INTRP Ampicillin R Amox/Clavulanate R Ceftriaxone S Cefazolin R Ciprofloxacin R Nitrofurantoin S Gentamicin S Levofloxacin R Piperc/Tazobact R Trimeth/Sulfa S S=SUSCEPTIBLE I=INTERMEDIATE R=RESISTANT SDD=SUSCEPTIBLE DOSE DEPENDENT NS=NONSUSCEPTIBLE X=REPORTED IN ERROR Normal [facility] Comment on above: Performed By: #### U [facility] #### [facility] [address] [address] Urinalysis, Microscopicon Urinalysis, Microscopic 1+ [facility] Work Phone: Urinalysis, Microscopic 4+ Abnormal [facility] Work Phone: Urinalysis, Microscopic 6 {/HPF} [facility] Work Phone: Urinalysis, Microscopic 30 {/HPF} Abnormal 0-5 [facility] Work Phone: Urinalysis, Microscopic >182 Abnormal 0-5 [facility] Work Phone: Complete Blood Counton 05-28 Erythrocyte distribution width (RBC) [Ratio] 15.1 % High 11.0-15.0 [facility] Comment on above: Performed By: #### C GORDON MERRITT CMP, FE Prof #### [facility] [address] [place], [place] [id number] Hematocrit (Bld) [Volume fraction] 26.5 % Low 35.0-47.0 [facility] Special[facility] Comment on above: Performed By: #### C GORDON MERRITT CMP, FE Prof #### [facility] [address] [facility] [place] [place] [id number] Hemoglobin (Bld) [Mass/Vol] 8.0 g/dL Low 11.6-15.5 [facility] Specialist Comment on above: Performed By: #### C GORDON MERRITT CMP, FE Prof #### [facility] [address] [place], [place] [id number] MCH (RBC) [Entitic mass] 25.6 pg Low 27.0-33.0 [facility] Comment on above: Performed By: #### C BC, FERR, CMP, FE Prof #### [facility] [address], [place] [id number] MCHC (RBC) [Mass/Vol] 30.2 g/dL Low 32.0-36.0 [facility] Comment on above: Performed By: #### C BC, FERR, CMP, FE Prof #### [facility] [address], [place] [id number] MCV (RBC) [Entitic vol] 85 fL Normal 80-100 [facility] Comment on above: Performed By: #### C BC, FERR, CMP, FE Prof #### [facility] [address], [place] [id number] Platelet mean volume (Bld) [Entitic vol] 9.90 fL Normal 7.50-12.50 [facility] Comment on above: Performed By: #### C BC, FERR, CMP, FE Prof #### [facility] [address], [place] [id number] Platelets (Bld) [#/Vol] 518 10*3/uL High 140-400 [facility] Comment on above: Performed By: #### C BC, FERR, CMP, FE Prof #### [facility] [address], [place] [id number] RBC (Bld) [#/Vol] 3.13 10*6/uL Low 3.90-5.20 [facility] Comment on above: Performed By: #### C BC, FERR, CMP, FE Prof #### [facility] [address], [place] [id number] RDW-SD 45.1 fL Normal 37.0-50.0 [facility] Comment on above: Performed By: #### C BC, FERR, CMP, FE Prof #### [facility] [address], [place] [id number] WBC (Bld) [#/Vol] 10.3 10*3/uL Normal 3.8-11.0 [facility] Comment on above: Performed By: #### C BC, FERR, CMP, FE Prof #### [facility] [address], [place] [id number] Comprehensive Metabolic Pane jose antonio 05-28-2021 Albumin [Mass/Vol] 2.6 g/dL Low 3.6-5.1 [facility] Comment on above: Performed By: #### C BC, FERR, CMP, FE Prof #### [facility] [address], [place] [id number] Albumin/Globulin [Mass ratio] 0.7 {ratio} Low 1.0-2.5 [facility] Comment on above: Performed By: #### C BC, FERR, CMP, FE Prof #### [facility] [address] [place] [id number] ALP [Catalytic activity/Vol] 248 U/L High 35-119 [facility] Comment on above: Performed By: #### C BC, FERR, CMP, FE Prof #### [facility] [address], [place] [id number] ALT [Catalytic activity/Vol] 7 U/L Normal 6-33 [facility] Comment on above: Result Comment: 04/02 Female reference range changed. Performed By: #### C BC, FERR, CMP, FE Prof #### [facility] [address] [facility] [place] [id number] Anion gap [Moles/Vol] 19 mmol/L Normal 12-20 [facility] Comment on above: Result Comment: Effe ctive 05/08/2019 reference range changed. Performed By: #### C BC, FERR, CMP, FE Prof #### [facility] [address] [facility] [place] [id number] AST [Catalytic activity/Vol] 12 U/L Normal 9-34 [facility] Comment on above: Performed By: #### C BC, FERR, CMP, FE Prof #### [facility] [address] [facility] [place] [id number] BUN/CREA 22 Ratio Normal 6-22 [facility] Comment on above: Performed By: #### C BC, FERR, CMP, FE Prof #### [facility] [address] [place], [place] [id number] Calcium [Mass/Vol] 8.0 mg/dL Low 8.6-10.2 [facility] Comment on above: Performed By: #### C BC, FERR, CMP, FE Prof #### [facility] [address] [facility] [place] [id number] Chloride [Moles/Vol] 108 mmol/L High 98-107 [facility] Comment on above: Performed By: #### C BC, FERR, CMP, FE Prof #### [facility] [address] [place], [place] [id number] CO2 [Moles/Vol] 17 mmol/L Low 20-31 [facility] Comment on above: Performed By: #### C BC, FERR, CMP, FE Prof #### [facility] [address] [place], [place] [id number] Creatinine [Mass/Vol] 1.0 mg/dL Normal 0.6-1.4 [facility] Comment on above: Performed By: #### C BC, FERR, CMP, FE Prof #### [facility] [address] [place], [place] [id number] eGFRAA 71 mL/min/1.73m2 Normal >60 [facility] Comment on above: Performed By: #### C BC, FERR, CMP, FE Prof #### [facility] [address] [place], [place] [id number] eGFRNAA 58 mL/min/1.73m2 Low >60 [facility] Comment on above: Performed By: #### C BC, FERR, CMP, FE Prof #### [facility] [address] [facility] [place] [id number] Globulin (S) [Mass/Vol] 3.6 g/dL Normal 1.9-3.7 [facility] Comment on above: Performed By: #### C BC, FERR, CMP, FE Prof #### [facility] [address] [facility] [place] [id number] Glucose [Mass/Vol] 82 mg/dL Normal 65-99 [facility] Comment on above: Result Comment: For FASTING Glucose --- ADA reference ranges: Normal 65-99 mg/dl Prediabetes 100-125 Diabetes >/= 126 Performed By: #### C BC, FERR, CMP, FE Prof #### [facility] [address], [place] [id number] Potassium [Moles/Vol] 4.9 mmol/L Normal 3.5-5.5 [facility] Comment on above: Performed By: #### C BC, FERR, CMP, FE Prof #### [facility] [address] [place], [place] [id number] Protein [Mass/Vol] 6.2 g/dL Normal 6.1-8.1 [facility] [place] [facility] Comment on above: Performed By: #### C BC, FERR, CMP, FE Prof #### [facility] [address], [place] [id number] Sodium [Moles/Vol] 140 mmol/L Normal 135-146 [facility] [place] [facility] Comment on above: Performed By: #### C BC, FERR, CMP, FE Prof #### [facility] [address], [place] [id number] TBIL <0.3 Normal [facility] Comment on above: Performed By: #### C BC, FERR, CMP, FE Prof #### [facility] [address] [place], [place] [id number] Urea nitrogen [Mass/Vol] 22 mg/dL Normal 7-25 [facility] Comment on above: Performed By: #### C BC, FERR, CMP, FE Prof #### [facility] [address], [place] [id number] Ferritinon 05-28-2021 FERR 293.5 ng/mL High 15.0-150.0 [facility] Comment on above: Performed By: #### C BC, FERR, CMP, FE Prof #### [facility] [address] [place], [place] [id number] Iron Profileon 05-28-2021 %FESAT 29 % Normal 11-50 [facility] Comment on above: Performed By: #### C BC, FERR, CMP, FE Prof #### [facility] [address], [place] [id number] FE 37 ug/dL Low 40-190 [facility] Comment on above: Result Comment: Refe rence range change 03/19/2017. Prior reference range F 37-145 ug/dL, M 59-158 ug/dL. Performed By: #### C BC, FERR, CMP, FE Prof #### [facility] [address], [place] [id number] TIBC 126 ug/dL Low 250-450 [facility] Comment on above: Performed By: #### C BC, FERR, CMP, FE Prof #### [facility] [address], [place] [id number] UIBC 89 ug/dL Low 112-347 [facility] Comment on above: Performed By: #### C BC, FERR, CMP, FE Prof #### [facility] [address], [place] [id number] Vitamin B12on 05-28-2021 Cobalamin (Vitamin B12) [Mass/Vol] pg/mL High [facility] Comment on above: Performed By: #### B 12 #### [facility] [address], [place] [id number] BASIC METABOLIC PANELon 05-03 Anion gap [Moles/Vol] 17 mmol/L Normal 10 - 20 [facility] Comment on above: Performed By: #### S TAPH #### [facility] [address] [place] [address] Calcium [Mass/Vol] 7.7 mg/dL Low 8.6 - 10.6 [facility] Comment on above: Performed By: #### S TAP #### [facility] [address] [place] [address] Chloride [Moles/Vol] 107 mmol/L Normal 98 - 107 [facility] Comment on above: Performed By: #### S TAPH #### [facility] [address] [place] [address] Creatinine [Mass/Vol] 1.67 mg/dL High 0.50 - 1.05 [facility] Comment on above: Performed By: #### S TAPH #### [facility] [address] [place] [address] GFR/1.73 sq M.predicted among non-blacks MDRD (S/P/Bld) [Vol rate/Area] 37 mL/min/{1.73_m2} Abnormal >90 [facility] Comment on above: Result Comment: CALC ULATIONS OF ESTIMATED GFR ARE PERFORMED USING THE 2020 CKD-EPI STUDY REFIT EQUATION WITHOUT THE RACE VARIABLE FOR THE IDMS-TRACEABLE CREATININE METHODS. https://jasn.asnjournals.org/content/early/ASN.56652 83739 Performed By: #### S TAPH #### [facility] [address] [place] [address] Glucose [Mass/Vol] 96 mg/dL Normal 74 - 99 [facility] Comment on above: Performed By: #### S TAPH #### [facility] [address] [place] [address] HCO3 (Bld) [Moles/Vol] 16 mmol/L Low 21 - 32 [facility] Comment on above: Performed By: #### S TAPH #### [facility] [address] [place] [address] Potassium [Moles/Vol] 4.2 mmol/L Normal 3.5 - 5.3 [facility] Comment on above: Performed By: #### S TAPH #### [facility] [address] [place] [address] Sodium [Moles/Vol] 136 mmol/L Normal 136 - 145 [facility] Comment on above: Performed By: #### S TAPH #### [facility] [address] [place] [address] Urea nitrogen [Mass/Vol] 16 mg/dL Normal 6 - 23 [facility] Comment on above: Performed By: #### S TAPH #### [facility] [address] [place] [address] CBC AND DIFFERENTIALon 05-15 % AUTOMATED IMMATURE GRAN 2.3 % High 0.0 - 0.9 [facility] Comment on above: Result Comment: Fernanda ture Granulocyte Count (IG) includes promyelocytes, myelocytes and metamyelocytes but does not include bands. Percent differential counts (%) should be interpreted in the context of the absolute cell counts (cells/L). Performed By: #### C BCDF #### [facility] [address] [place] [address] Basophils (Bld) [#/Vol] 0.10 10*3/uL Normal 0.00 - 0.10 [facility] Comment on above: Performed By: #### C BCDF #### [facility] [address] [place] [address] Basophils/100 WBC (Bld) 0.8 % Normal 0.0 - 2.0 [facility] Comment on above: Performed By: #### C BCDF #### [facility] [address] [place] [address] Eosinophils (Bld) [#/Vol] 0.03 10*3/uL Normal 0.00 - 0.70 [facility] Comment on above: Performed By: #### C BCDF #### [facility] [address] [place] [address] Eosinophils/100 WBC (Bld) 0.2 % Normal 0.0 - 6.0 [facility] Comment on above: Performed By: #### C BCDF #### [facility] [address] [place] [address] Erythrocyte distribution width (RBC) [Ratio] 13.4 % Normal 11.5 - 14.5 [facility] Comment on above: Performed By: #### C BCDF #### [facility] [address] [place] [address] Hematocrit (Bld) [Volume fraction] 30.9 % Low 36.0 - 46.0 [facility] Comment on above: Performed By: #### C BCDF #### [facility] [address] [place] [address] Hemoglobin (Bld) [Mass/Vol] 9.7 g/dL Low 12.0 - 16.0 [facility] Comment on above: Performed By: #### C BCDF #### [facility] [address] [place] [address] Lymphocytes (Bld) [#/Vol] 2.13 10*3/uL Normal 1.20 - 4.80 [facility] Comment on above: Performed By: #### C BCDF #### [facility] [address] [place] [address] Lymphocytes/100 WBC (Bld) 17.1 % Normal 13.0 - 44.0 [facility] Comment on above: Performed By: #### C BCDF #### [facility] [address] [place] [address] MCHC (RBC) [Mass/Vol] 31.4 g/dL Low 32.0 - 36.0 [facility] Comment on above: Performed By: #### C BCDF #### [facility] [address] [place] [address] MCV (RBC) [Entitic vol] 85 fL Normal 80 - 100 [facility] Comment on above: Performed By: #### C BCDF #### [facility] [address] [place] [address] Monocytes (Bld) [#/Vol] 1.06 10*3/uL High 0.10 - 1.00 [facility] Comment on above: Performed By: #### C BCDF #### [facility] [address] [place] [address] Monocytes/100 WBC (Bld) 8.5 % Normal 2.0 - 10.0 [facility] Comment on above: Performed By: #### C BCDF #### [facility] [address] [place] [address] Neutrophils (Bld) [#/Vol] 8.85 10*3/uL High 1.20 - 7.70 [facility] Comment on above: Performed By: #### C BCDF #### [facility] [address] [place] [address] Neutrophils/100 WBC (Bld) 71.1 % Normal 40.0 - 80.0 [facility] Comment on above: Performed By: #### C BCDF #### [facility] [address] [place] [address] NUCLEATED RBC 0.0 /100 WBC Normal 0.0-0.0 [facility] Comment on above: Performed By: #### C BCDF #### [facility] [address] [place] [address] Platelets (Bld) [#/Vol] 555 10*3/uL High 150 - 450 [facility] Comment on above: Performed By: #### C BCDF #### [facility] [address] [place] [address] RBC 3.64 x10E12/L Low 4.00 - 5.20 [facility] Comment on above: Performed By: #### C BCDF #### [facility] [address] [place] [address] WBC (Bld) [#/Vol] 12.5 10*3/uL High 4.4 - 11.3 [facility] Comment on above: Performed By: #### C BCDF #### [facility] [address] [place] [address] COAGULATION SCREENon 022 aPTT Coag (Bld) [Time] 36 s Normal 26 - 39 [facility] Comment on above: Result Comment: Note new reference range as of 04/01/2021 at 10:00am. Performed By: #### C OAGS #### [facility] [address] [place] [address] PT Coag (PPP) [Time] 14.3 s High 9.8 - 13.4 [facility] Comment on above: Result Comment: Note new reference range as of 04/01/2021 at 10:00am. Performed By: #### C OAGS #### [facility] [address] [place] [address] PT, INR 1.2 High 0.9 - 1.1 [facility] Comment on above: Performed By: #### C OAGS #### [facility] [address] [place] [address] Complete Blood Count + Diffe rentialon 05-15-2021 Basophils/100 WBC (Bld) 0.8 % 0.0 - 2.0 [facility] Work Phone: [phone] Erythrocyte distribution width (RBC) [Ratio] 13.4 % See Below [facility] Work Phone: Comment on above: Reference Range: 11. 5 - 14.5 Hematocrit (Bld) [Volume fraction] 30.9 % below low threshold See Below [facility] Work Phone: Comment on above: Reference Range: 36. 0 - 46.0 Hemoglobin (Bld) [Mass/Vol] 9.7 g/dL below low threshold See Below [facility] Work Phone: [phone] Comment on above: Reference Range: 12. 0 - 16.0 Lymphocytes/100 WBC (Bld) 17.1 % See Below [facility] Work Phone: Comment on above: Reference Range: 13. 0 - 44.0 MCHC (RBC) [Mass/Vol] 31.4 g/dL below low threshold See Below [facility] Work Phone: [phone] Comment on above: Reference Range: 32. 0 - 36.0 MCV (RBC) [Entitic vol] 85 fL 80 - 100 [facility] Work Phone: [phone] Monocytes/100 WBC (Bld) 8.5 % 2.0 - 10.0 [facility] Work Phone: [phone] Neutrophils/100 WBC (Bld) 71.1 % See Below [facility] Work Phone: Comment on above: Reference Range: 40. 0 - 80.0 Platelets (Bld) [#/Vol] 555 10*3/uL above high threshold 150 - 450 [facility] Work Phone: RBC (Bld) [#/Vol] 3.64 {x10E12/L} below low threshold See Below [facility] Work Phone: Comment on above: Reference Range: 4.0 0 - 5.20 WBC (Bld) [#/Vol] 12.5 10*3/uL above high threshold 4.4 - 11.3 [facility] Work Phone: Complete Blood Count + Differential 0.10 {x10E9/L} See Below [facility] Work Phone: Comment on above: Reference Range: 0.0 0 - 0.10 Complete Blood Count + Differential 0.03 {x10E9/L} See Below [facility] Work Phone: Comment on above: Reference Range: 0.0 0 - 0.70 Complete Blood Count + Differential 1.06 {x10E9/L} above high threshold See Below [facility] Work Phone: Comment on above: Reference Range: 0.1 0 - 1.00 Complete Blood Count + Differential 2.13 {x10E9/L} See Below [facility] Work Phone: Comment on above: Reference Range: 1.2 0 - 4.80 Complete Blood Count + Differential 8.85 {x10E9/L} above high threshold See Below [facility] Work Phone: Comment on above: Reference Range: 1.2 0 - 7.70 Complete Blood Count + Differential 0.2 % 0.0 - 6.0 [facility] Work Phone: Complete Blood Count + Differential 2.3 % above high threshold 0.0 - 0.9 [facility] Work Phone: Comment on above: Immature Granulocyte Count (IG) includes promyelocytes, myelocytes and metamyelocytes but does not include bands. Percent differential counts (%) should be interpreted in the context of the absolute cell counts (cells/L). Complete Blood Count + Differential 0.0 {/100_WBC} 0.0-0.0 [facility] Work Phone: Initial Visit (Neurosurgery) on 05-15-2021 Initial Visit (Neurosurgery) Diagnoses/Problems Family history of hypertension (V17.49) (Z82.49) : Mother, Father Weakness of both lower extremities (729.89) (R29.898) Hyperparathyroidism (252.00) (E21.3) Fibromyalgia (729.1) (M79.7) Anxiety (300.00) (F41.9) History of Gastric bypass surgery 2001 History of Lithotripsy No illicit drug use Never smoker No alcohol use History of anemia (V12.3) (Z86.2) Hemangioma of spine (228.09) (D18.09) Orders Hemangioma of spine Start: Hibiclens 4 % External Liquid; Body wash from neck down night before surgery Education Material Provided for Patient; Status:Complete; Done: 15May2021 Basic Metabolic Panel; Status:Active - Retrospective Authorization; Requested for:15May2021; Start: Mupirocin 2 % External Ointment; TWICE DAILY: Pea sized amount to both nostrils for 5 days before surgery Coagulation Screen; Status:Active - Retrospective Authorization; Requested for:15May2021; Complete Blood Count + Differential; Status:Active - Retrospective Authorization; Requested for:15May2021; MRSA Screen; Status:Active - Retrospective Authorization; Requested for:15May2021; Type and Screen; Status:Active - Retrospective Authorization; Requested for:15May2021; Urinalysis; Status:Active - Retrospective Authorization; Requested for:15May2021; Patient Discussion/Summary 50 year old with lumbar stenosis associated with L4 hemangioma, also back pain, T12 hemangioma she is a good candidate for decompression/fusion with kyphoplasty procedure/alternatives/risk s/benefits discussed she wishes to proceed we will schedule surgery in the near future Chief Complaint Patient is being seen for an initial Neurosurgical evaluation and NPV ref by Dr Jones for hemangioma clusters. Adult Risk Screening There are no spiritual/cultural practices/values/needs that are important to know1 Initial Fall Risk Screenin DEANA has not fallen in the last 6 months1 . Tobacco Screenin DEANA does not use tobacco1 . 1 Amended By: Rosemary Harvey; May 15 2021 11:32 AM ESTHistory of Present Illness referred by dr jones pt reports severe lower back pain and mid back pain that started many years ago the pain is always present, made worse by standing/walking/reaching both legs are weak and stairs are very difficult; she is able to walk only short distances she has numbness/tingling in both legs she has hyperparathyroidism with a kidney stone that causes pain no bowel or bladder symptoms no perineal anesthesia Past Medical History History of anemia (V12.3) (Z86.2) Surgical History History of Gastric bypass surgery 2002 History of Lithotripsy Family History Family history of hypertension (V17.49) (Z82.49) Family history of hypertension (V17.49) (Z82.49) Social History Never smoker No alcohol use No illicit drug use Allergies No Known Allergies Recorded By: Rosemary Harvey; 05/15/2021 10:38:36 AM No Known Allergies Recorded By: Darren Fortune; 05/15/2021 10:40:29 AM Vitals Vital Signs Recorded: 15May2021 10:40AM Heart [id number] Fcyosigjuqz49 Vizdepyn574 Dckhlyqra28 Height5 ft 6.5 in Jtutwr333 lb BMI Aywpoxuevj14.21 kg/m2 BSA Calculated1.97 Physical Exam Constitutional - General appearance: No acute distress, well developed, well nourished and appearing her stated age. Musculoskeletal - Digits and nails: No visible deformity of joints. Inspection/palpation of joints, bones and muscles: Normal. Range of motion: Normal. Neurologic - Oriented to self, place, and time, Language: Fluid speech and intact cognition 2nd cranial nerve: Normal. 3rd, 4th, and 6th cranial nerves: Normal. 5th cranial nerve: Normal. 7th cranial nerve: Normal. 8th cranial nerve: Normal. 9th cranial nerve: Normal. 11th cranial nerve: Normal. 12th cranial nerve: Normal. Muscle strength: 5/5 strength both UE and LE without flaccidity, rigidity, cogwheeling, or spasticity. No visible fasciculations Muscle tone: No atrophy, abnormal movements, flaccidity, cogwheeling or spasticity Gait and Station: Non-antalgic, not broad- based, or myelopathic gait. No shuffling steps Sensation: Grossly intact to pinprick and temperature throughout all dermatomes. No allodynia BLE 4+/5 throughout, sensation intact, reflexes 2+. Reflexes: Symmetric and normal deep tendon reflexes throughout. Negative Richards's sign. Toes down on Babinski. No clonus at ankles Coordination: No dysmetria, no dysdiadochokinesis, negative Romberg sign. Mood and affect: Normal. 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 Time spent directly with patient/family/caregiver: 25 minutes. Additional time spent on patient care activities: 10 minutes. Total time on date of patient encounter: 45 minutes. Signatures Electronically signed by : Tri Awad MD; May 15 2021 11:39AM ES (more content not included)... Normal [facility] - Blood bankon ABO group Nom (Bld) O [facility]Ne urosur [facility] Work Phone: Blood group antibody screen Ql Negative [facility] Work Phone: Rh immune globulin screen (Bld) [Interp] Positive [facility] Work Phone: Laboratory - Chemistry and C hemistry - challengeon 05-15-2021 Anion gap [Moles/Vol] 17 mmol/L 10 - 20 [facility] Work Phone: Calcium [Mass/Vol] 7.7 mg/dL below low threshold 8.6 - 10.6 [facility] Work Phone: Chloride [Moles/Vol] 107 mmol/L 98 - 107 [facility]N euro[facility] Work Phone: CO2 [Moles/Vol] 16 mmol/L below low threshold 21 - 32 [facility] Work Phone: Creatinine [Mass/Vol] 1.67 mg/dL above high threshold See Below [facility] Work Phone: Comment on above: Reference Range: 0.5 0 - 1.05 Glucose [Mass/Vol] 96 mg/dL 74 - 99 [facility]rina [facility] Work Phone: Potassium [Moles/Vol] 4.2 mmol/L 3.5 - 5.3 [facility] Work Phone: Sodium [Moles/Vol] 136 mmol/L 136 - 145 [facility] Work Phone: Urea nitrogen [Mass/Vol] 16 mg/dL 6 - 23 [facility] Work Phone: Laboratory - Coagulationon 0 05-15-2021 aPTT Coag (PPP) [Time] 36 s 26 - 39 [facility] Work Phone: Comment on above: Note new reference r rebekah as of 04/01/2021 at 10:00am. INR Coag (PPP) [Relative time] 1.2 {INR} above high threshold 0.9 - 1.1 [facility] Work Phone: PT Coag (PPP) [Time] 14.3 s above high threshold 9.8 - 13.4 [facility] Work Phone: Comment on above: Note new reference r rebekah as of 04/01/2021 at 10:00am. MRSA Screenon 05-15-2021 Staphylococcus sp identified Org specific cx Nom (Unsp spec) [facility] Work Phone: No Panel Informationon 05-15 37 {mL/min/1.73m2} Abnormal >90 [facility] Work Phone: Comment on above: CALCULATIONS OF JAGRUTI MATED GFR ARE PERFORMED USING THE 2020 CKD-EPI STUDY REFIT EQUATION WITHOUT THE RACE VARIABLE FOR THE IDMS-TRACEABLE CREATININE METHODS.https://jasn.asnjournals.org/content/early/A SN.7007246808 STAPH/MRSA SCREENon 05-15-19 STAPH/MRSA SCREEN PATIENT: DEANA CROFT LOCATION: [address]#: [id number] : 68 AGE: SEX: F ORDERED BY: TRI AWAD SOURCE: NASOPHARYNGEAL COLLECTED: 05/15/21 11:30 ANTIBIOTICS AT SULMA.: RECEIVED : 05/15/21 17:22 SITE: R E S U L T S STAPH/MRSA SCREEN FINAL 05/17/21 10:10 NO Staphylococcus aureus ISOLATED. Normal [facility] Comment on above: Performed By: #### S TAPH #### [facility] [address] [place] [id number] TYPE + SCREENon 05-15-2021 ABO TYPE O Normal [facility] Comment on above: Performed By: #### S TAPH #### [facility] [address] [place] [id number] RH TYPE Positive Normal [facility] Comment on above: Performed By: #### S TAPH #### [facility] [address] [place] [address] URINALYSISon 05-15-2021 Appearance (U) Canceled Normal [facility] Comment on above: Order Comment: TEST URINALYSIS WAS CANCELLED, 05/15/2021 12:54 pt couldnt void. Performed By: #### U RINC #### [facility] [address] [place] [id number] ASCORBIC ACID Canceled Normal [facility] Comment on above: Order Comment: TEST URINALYSIS WAS CANCELLED, 05/15/2021 12:54 pt couldnt void. Result Comment: Conc entrations > = 20 mg/dL of ascorbic acid can be expected to cause strong interference in the reactions testing for glucose, nitrite and blood. It is recommended to discontinue Vitamin C administration and retest in 10 hours. Performed By: #### U RINC #### [facility] [address] [place] [id number] Bilirubin Ql (U) Canceled Normal [facility] Comment on above: Order Comment: TEST URINALYSIS WAS CANCELLED, 05/15/2021 12:54 pt couldnt void. Performed By: #### U RINC #### [facility] [address] [place] [address] Color (U) Canceled Normal [facility] Comment on above: Order Comment: TEST URINALYSIS WAS CANCELLED, 05/15/2021 12:54 pt couldnt void. Performed By: #### U RINC #### [facility] [address] [place] [address] Glucose Ql (U) Canceled Normal [facility] Comment on above: Order Comment: TEST URINALYSIS WAS CANCELLED, 05/15/2021 12:54 pt couldnt void. Performed By: #### U RINC #### [facility] [address] [place] [address] Hemoglobin Ql (U) Canceled Normal [facility] Comment on above: Order Comment: TEST URINALYSIS WAS CANCELLED, 05/15/2021 12:54 pt couldnt void. Performed By: #### U RINC #### [facility] [address] [place] [address] Ketones Ql (U) Canceled Normal [facility] Comment on above: Order Comment: TEST URINALYSIS WAS CANCELLED, 05/15/2021 12:54 pt couldnt void. Performed By: #### U RINC #### [facility] [address] [place] [address] Leukocyte esterase Test strip Ql (U) Canceled Normal [facility] Comment on above: Order Comment: TEST URINALYSIS WAS CANCELLED, 05/15/2021 12:54 pt couldnt void. Performed By: #### U RINC #### [facility] [address] [place] [address] Nitrite Ql (U) Canceled Normal [facility] Comment on above: Order Comment: TEST URINALYSIS WAS CANCELLED, 05/15/2021 12:54 pt couldnt void. Performed By: #### U RINC #### [facility] [address] [place] [address] pH Canceled Normal [facility] Comment on above: Order Comment: TEST URINALYSIS WAS CANCELLED, 05/15/2021 12:54 pt couldnt void. Performed By: #### U RINC #### [facility] [address] [place] [address] Protein Ql (U) Canceled Normal [facility] Comment on above: Order Comment: TEST URINALYSIS WAS CANCELLED, 05/15/2021 12:54 pt couldnt void. Performed By: #### U RINC #### [facility] [address] [place] [address] Specific gravity (U) [Rel density] Canceled Normal [facility] Comment on above: Order Comment: TEST URINALYSIS WAS CANCELLED, 05/15/2021 12:54 pt couldnt void. Performed By: #### U RINC #### [facility] [address] [place] [address] UROBILINOGEN Canceled Normal [facility] Comment on above: Order Comment: TEST URINALYSIS WAS CANCELLED, 05/15/2021 12:54 pt couldnt void. Performed By: #### U RINC #### [facility] [address] [place] [address] Urinalysison 05-15-2021 Appearance (U) Canceled [facility] Work Phone: Color (U) Canceled [facility] Work Phone: Glucose Ql (U) Canceled [facility] Work Phone: Ketones Ql (U) Canceled [facility] Work Phone: Leukocyte esterase Test strip Ql (U) Canceled [facility] Work Phone: Protein (U) [Mass/Vol] Canceled [facility] Work Phone: RBC (U) [#/Vol] Canceled [facility] Work Phone: Specific gravity (U) [Rel density] Canceled [facility] Work Phone: Urinalysis Canceled [facility]: Comment on above: Concentrations > = 2 0 mg/dL of ascorbic acid can be expected to cause strong interference in the reactions testing for glucose, nitrite and blood. It is recommended to discontinue Vitamin C administration and retest in 10 hours. Initial Visit (Neurosurgery) on 05-08-2021 Initial Visit (Neurosurgery) No report was sent [facility]INEon 04-30-2021 CULTURE URINE Culture Observations : LIGHT GROWTH OF MIXED GENITAL BHUPENDRA. NO POTENTIAL PATHOGENS SEEN. Normal [facility] Comment on above: Performed By: #### U RCX #### [facility] [address] [place] [address] Dr. Priya Head ER URINE PROFILEon Bilirubin Ql (U) Negative Normal NEGATIVE [facility] Comment on above: Performed By: #### Nancy JUNIOR UMICRO #### [facility] [address] [place] [address] Dr. Priya Head Clarity (U) CLEAR Normal CLEAR [facility] Comment on above: Performed By: #### E RUR, UMICRO #### [facility] [address] [place] [address] Dr. Priya Head Color (U) YELLOW Normal YELLOW [facility] Comment on above: Performed By: #### E RUR, UMICRO #### [facility] [address] [place] [address] Dr. Priya Head ERUAHD A micrscopic examina tion will be performed if indicated. Normal [facility] Comment on above: Performed By: #### E RUR, UMICRO #### [facility] [address] [place] [address] Dr. Priya Head Glucose Ql (U) Negative Normal NEGATIVE [facility] Comment on above: Performed By: #### E RUR UMICRO #### [facility] [address] [place] [address] Dr. Priya Head Hemoglobin Ql (U) MODERATE Abnormal NEGATIVE [facility] Comment on above: Performed By: #### TAMMI YI #### [facility] [address] [place] [address] Dr. Priya Heda Ketones Ql (U) Negative Normal NEGATIVE [facility] Comment on above: Performed By: #### BRYNN YIRO #### [facility] [address] [place] [address] Dr. Priya Head LEUKOCYTES SMALL Abnormal NEGATIVE [facility] Comment on above: Performed By: #### BRYNN IYRO #### [facility] [address] [place] [address] Dr. Priya Head Nitrite Ql (U) Negative Normal NEGATIVE [facility] Comment on above: Performed By: #### TAMMI YI #### [facility] [address] [place] [address] Dr. Priya Head pH (U) 5.0 [pH] Normal 5-9 [facility] Comment on above: Performed By: #### TAMMI YI #### [facility] [address] [place] [address] Dr. Priya Head Protein (U) [Mass/Vol] 30 mg/dL Abnormal NEGAT SAURAV/ TRACE [facility] Comment on above: Performed By: #### TAMMI YI #### [facility] [address] [place] [address] Dr. Priya Head SPEC GRAVITY 1.025 Normal 1.005-<=1. 025 [facility] Comment on above: Performed By: #### TAMMI YI #### [facility] [address] [place] [address] Dr. Priya Head UR MICRO IND INDICATED Normal [facility] Comment on above: Performed By: #### BRYNN YIRO #### [facility] [address] [place] [address] Dr. Priya Head Urobilinogen Qn (U) 0.2 {Ramses'U}/dL Normal 0.2 - 1. 0 [facility] Comment on above: Performed By: #### E VANDANAR UMICRO #### [facility] [address] [place] [address] Dr. Priya Head URINE MICROSCOPIC ONLYon BACTERIA SMALL Abnormal NONE SEEN [facility] Comment on above: Performed By: #### E RUR UMICRO #### [facility] [address] [place] [address] Dr. Priya Head Bacteria identified Cx Nom (U) INDICATED Normal [facility] Comment on above: Performed By: #### E SANDI UMICRO #### [facility] [address] [place] [address] Dr. Priya Head CAST NONE SEEN Normal NONE SEEN [facility] Comment on above: Performed By: #### E SANDI UMICRO #### [facility] [address] [place] [address] Dr. Priya Head Crystals LM Nom (Urine sed) NONE SEEN Normal NONE SEEN [facility] Comment on above: Performed By: #### Nancy JUNIOR UMICRO #### [facility] [address] [place] [address] Dr. Priya Head Epithelial cells LM Ql (Urine sed) NONE SEEN Normal NONE SEEN /RARE [facility] Comment on above: Performed By: #### Nancy JUNIOR UMICRO #### [facility] [address] [place] [address] Dr. Priya Head MUCOUS NONE SEEN Normal NONE SEEN [facility] Comment on above: Performed By: #### E RUR UMICRO #### [facility] [address] [place] [address] Dr. Priya Head RBC 0-2 Normal 0-2 [facility] Comment on above: Performed By: #### E RUR, UMICRO #### [facility] [address] [place] [address] Dr. Priya Head WBC 5-10 Abnormal NONE SEEN [facility] Comment on above: Performed By: #### E RUR UMICRO #### [facility] [address] [place] [address] Dr. Priya Head VITAMIN Loy 11-27-2020 Vitamin K1 0.05 ng/mL Critically low 0.10-2.20 [facility] Comment on above: Result Comment: Pl ease note reference interval change Performed By: #### V ITKLC #### [facility] [address] [place] [address] Ursulasilvia Red VITAMIN Sunny 11-22-2020 Vitamin E (Alpha T) 1.9 mg/L Critically low 7.0-25.1 [facility] Comment on above: Performed By: #### V ITAE #### [facility] [address] [place] [address] Ursula Neda Vitamin E (Gamma T) 0.7 mg/L Normal 0.5-5.5 [facility] Comment on above: Result Comment: Refe rence intervals for alpha and gamma-tocopherol determined from National Health and Nutrition Examination Survey, 6925-6095. Individuals with alpha-tocopherol levels less than 5.0 mg/L are considered vitamin E deficient. Performed By: #### V ITAE #### [facility] [address] [place], [place] [address] Ursula Neda PTH INTACTon 11-20-2020 PTH, Intact 172 pg/mL Critically high 15-65 [facility] Comment on above: Performed By: #### P THINT #### [facility] [address] [place] [address] Ursulasilvia Amayaen CBC AUTO DIFFon 11-19-2020 BASO # 0.1 103/ul Normal 0.0-0.1 [facility] Comment on above: Performed By: #### C BC #### [facility] [address] [place], [place] [address] Ursulasilvia Red Basophils/100 WBC (Bld) 1.0 % Normal 0.2-2.0 [facility] Comment on above: Performed By: #### C BC #### [facility] [address] [place] [address] Ursula Neda EO # 0.1 103/ul Normal 0.0-0.7 [facility] Comment on above: Performed By: #### C BC #### [facility] [address] [place] [address] Ursula Neda Eosinophils/100 WBC (Bld) 1.2 % Normal 0.9-7.0 [facility] Comment on above: Performed By: #### C BC #### [facility] [address] [place] [address] Ursula Neda Erythrocyte distribution width (RBC) [Ratio] 14.0 % Normal 11.0-15.0 [facility] Comment on above: Performed By: #### C BC #### [facility] [address] [place] [address] Ursula Neda Hematocrit (Bld) [Volume fraction] 41.8 % Normal 36.0-48.0 [facility] Comment on above: Performed By: #### C BC #### [facility] [address] [place] [address] Ursula Neda Hemoglobin (Bld) [Mass/Vol] 13.1 g/dL Normal 12.0-16.0 [facility] Comment on above: Performed By: #### C BC #### [facility] [address] [place] [address] Ursula Neda IG # 0.02 10e3/ul Normal 0.00-0.03 [facility] Comment on above: Performed By: #### C BC #### [facility] [address] [place] [address] Ursula Neda IG % 0.3 % Normal 0.0-0.5 [facility] Comment on above: Performed By: #### C BC #### [facility] [address] [place] [address] Ursula Neda LYMPH # 2.2 103/ul Normal 1.2-3.8 [facility] Comment on above: Performed By: #### C BC #### [facility] [address] [place] [address] Ursula Neda Lymphocytes/100 WBC (Bld) 38.5 % Normal 20.5-60.0 [facility] Comment on above: Performed By: #### C BC #### [facility] [address] [place], [place] [address] Ursula Neda MANUAL DIFF REQ NO Normal [facility] Comment on above: Performed By: #### C BC #### [facility] [address] [place], [place] [address] Ursula Neda MCH (RBC) [Entitic mass] 27.8 pg Normal 26.7-34.0 [facility] Comment on above: Performed By: #### C BC #### [facility] [address] [place], [place] [address] Ursulasilvia Red MCHC (RBC) [Mass/Vol] 31.3 g/dL Normal 29.9-35.2 [facility] Comment on above: Performed By: #### C BC #### [facility] [address] [place], [place] [address] Ursula Neda MCV (RBC) [Entitic vol] 88.6 fL Normal 81.0-99.0 [facility] Comment on above: Performed By: #### C BC #### [facility] [address] [place], [place] [address] Ursula Neda MONO # 0.4 103/ul Normal 0.3-0.8 [facility] Comment on above: Performed By: #### C BC #### [facility] [address] [place], [place] [address] Ursula Neda Monocytes/100 WBC (Bld) 6.7 % Normal 1.7-12.0 [facility] Comment on above: Performed By: #### C BC #### [facility] [address] [place], [place] [address] Ursula Neda NEUT # 3.0 103/ul Normal 1.4-6.5 [facility] Comment on above: Performed By: #### C BC #### [facility] [address] [place], [place] [address] Ursula Neda Neutrophils/100 WBC (Bld) 52.3 % Normal 43.0-75.0 [facility] Comment on above: Performed By: #### C BC #### [facility] [address] [place], [place] [address] Ursula Red Platelet mean volume (Bld) [Entitic vol] 10.3 fL Normal 9.5-13.5 [facility] Comment on above: Performed By: #### C BC #### [facility] [address] [place], [place] [address] Ursulasilvia Amayaen PLT 239 103/ul Normal 150-450 [facility] Comment on above: Performed By: #### C BC #### [facility] [address] [place] [address] Ursula Amayaen RBC 4.72 106/ul Normal 4.20-5.40 [facility] Comment on above: Performed By: #### C BC #### [facility] [address] [place] [address] Ursulasilvia Amayaen WBC 5.8 103/ul Normal 4.0-11.0 [facility] Comment on above: Performed By: #### C BC #### [facility] [address] [place], [place] [address] Ursula Red FERRITINon 11-19-2020 Ferritin [Mass/Vol] 20.0 ng/mL Normal 11.1-264.0 [facility] Comment on above: Performed By: #### V ITAE #### [facility] [address] [place], [place] [address] Ursula Red FREE T4on 11-19-2020 Free T4 [Mass/Vol] 0.85 ng/dL Normal 0.78-2.19 [facility] Comment on above: Performed By: #### V ITAE #### [facility] [address] [place], [place] [address] Ursula Neda IRON AND TIBCon 11-19-2020 % SATURATION 33.8 % Normal [facility] Comment on above: Performed By: #### V ITAE #### [facility] [address] [place], [place] [address] Ursula Neda Iron [Mass/Vol] 114.0 ug/dL Normal 37.0-170.0 [facility] Comment on above: Performed By: #### V ITAE #### [facility] [address] [place] [address] Ursula Neda TIBC DIRECT 337.0 ug/dL Normal 261.0-497. 0 [facility] Comment on above: Performed By: #### V ITAE #### [facility] [address] [place], [place] [address] Ursulasilvia Amayaen PROF 14(COMP METB)on 021 Albumin [Mass/Vol] 3.7 g/dL Normal 3.5-5.0 [facility] Comment on above: Performed By: #### C DEBBIE, TSH #### [facility] [address] [place], [place] [address] Ursula Neda Albumin/Globulin [Mass ratio] 1.1 {ratio} Normal [facility] Comment on above: Performed By: #### C DEBBIE, TSH #### [facility] [address] [place], [place] [address] Ursula Neda ALP [Catalytic activity/Vol] 221 U/L Critically high 38-126 [facility] Comment on above: Performed By: #### C DEBBIE, TSH #### [facility] [address] [place], [place] [address] Ursula Neda ALT [Catalytic activity/Vol] 23 U/L Normal 9-52 [facility] Comment on above: Performed By: #### C DEBBIE, TSH #### [facility] [address] [place], [place] [address] Ursula Neda Anion gap [Moles/Vol] 16.3 mmol/L Normal [facility] Comment on above: Performed By: #### C DEBBIE, TSH #### [facility] [address] [place], [place] [address] Ursula Neda AST [Catalytic activity/Vol] 19 U/L Normal 14-36 [facility] Comment on above: Performed By: #### C DEBBIE, TSH #### [facility] [address] [place], [place] [address] Ursula Neda Bilirubin [Mass/Vol] 0.7 mg/dL Normal 0.2-1.3 [facility] Comment on above: Performed By: #### C DEBBIE, TSH #### [facility] [address] [place] [address] Ursula Neda Calcium [Mass/Vol] 8.2 mg/dL Critically low 8.4-10.2 Th e [facility] Comment on above: Performed By: #### C MP, TSH #### [facility] [address] [place] [address] Ursula Neda Chloride [Moles/Vol] 110 mmol/L Critically high 98-107 [facility] Comment on above: Performed By: #### C MP, TSH #### [facility] [address] [place] [address] Ursula Neda CO2 [Moles/Vol] 22.2 mmol/L Normal 22.0-30.0 [facility] Comment on above: Performed By: #### C MP, TSH #### [facility] [address] [place] [address] Ursula Neda Creatinine [Mass/Vol] 0.80 mg/dL Normal 0.52-1.04 [facility] Comment on above: Performed By: #### C MP, TSH #### [facility] [address] [place] [address] Ursula Neda EGFR-AF IVORIAN >60 Normal >=60 [facility] Comment on above: Performed By: #### C MP, TSH #### [facility] [address] [place] [address] Ursula Neda EGFR-NON AF IVORIAN >60 Normal >=60 [facility] Comment on above: Performed By: #### C MP, TSH #### [facility] [address] [place] [address] Ursula Neda Globulin (S) [Mass/Vol] 3.3 g/dL Normal [facility] Comment on above: Performed By: #### C MP, TSH #### [facility] [address] [place] [address] Ursula Neda Glucose [Mass/Vol] 88 mg/dL Normal 74-106 [facility] Comment on above: Performed By: #### C MP, TSH #### [facility] [address] [place] [address] Ursula Neda Potassium [Moles/Vol] 3.5 mmol/L Normal 3.4-5.0 [facility] Comment on above: Performed By: #### C MP, TSH #### [facility] [address] [place], [place] [address] Ursula Neda Protein [Mass/Vol] 7.0 g/dL Normal 6.1-8.2 [facility] Comment on above: Performed By: #### C MP, TSH #### [facility] [address] [place], [place] [address] Ursula Neda Sodium [Moles/Vol] 145 mmol/L Normal 137-145 [facility] Comment on above: Performed By: #### C MP, TSH #### [facility] [address] [place], [place] [address] Ursula Neda Urea nitrogen [Mass/Vol] 16.0 mg/dL Normal 7.0-17.0 [facility] Comment on above: Performed By: #### C MP, TSH #### [facility] [address] [place] [address] Ursula Neda Urea nitrogen/Creatinine [Mass ratio] 20.0 mg/mg Normal [facility] Comment on above: Performed By: #### C MP, TSH #### [facility] [address] [place] [address] Ursula Neda TSHon 11-19-2020 TSH 2.236 uIU/mL Normal 0.470-4.68 0 [facility] Comment on above: Performed By: #### C MP, TSH #### [facility] [address] [place] [address] Ursula Neda TSH RANGE SEE BELOW Normal [facility] Comment on above: Result Comment: <0.3 4 UIU/ml HYPERTHYROID 0.34-5.60 UIU/ml EUTHYROID >5.60 UIU/ml HYPOTHYROID Performed By: #### C MP, TSH #### [facility] [address] [place] [address] Ursula Neda VITAMIN B12on 11-19-2020 Cobalamin (Vitamin B12) [Mass/Vol] 483.0 pg/mL Normal 239.0-931. 0 [facility] Comment on above: Performed By: #### V ITAE #### [facility] [address] [place], [place] [address] Ursula Red VITAMIN D 25 OHon 11-19-2020 VIT D 25-OH 25.4 ng/mL Normal [facility] Comment on above: Performed By: #### V ITB12, VITAD, FERR, FT4, FETIBC #### [facility] [address] [id number] Ursula Red VIT D RANGES SEE BELOW Normal [facility] Comment on above: Result Comment: <20 ng/mL Vit D deficient 20 - <30 ng/mL Vit D insufficient 30 - 100 ng/mL Vit D sufficient >100 ng/mL Potential Toxicity Performed By: #### V ITB12, VITAD, FERR, FT4, FETIBC #### [facility] [address] [place], [place] [address] Ursula Red [facility] - General Officeon 0 08-02-2018 [facility] General Office From: Lizzy Saldivar To: Tammy LANDIS, Gerard Sanches; [facility] Inbox; Sent: 08/02/2018 12:53:59 EDT Subject: refill On hold pending signature Order:gabapentin (gabapentin 300 mg Cap) 2 cap(s) Oral TID Qty: 180 cap(s) Refills: 0 Substitutions Allowed Route To Pharmacy - [facility]/pharmacy #[id number] patient left voicemail to request refill of gabapentin last office visit 06/24/18 no follow up scheduled pdfCD:[id number] Oca9MEYgE2OOJmy6HmKVf4E3gqf fCvqpl9PVNdHS7VCGOfGGa0T90t MTkvRSAy XfzfGo4LIJJrRWY5Okh6MO5XKRl zVZe0WCEaDM1+Cb8rjoVpZxtNQM AgICAgICAgICAgICAgICAg SQgtCSMtDD7vqt48SB9OYFEfGXH ZIDKmulu2O9KywBSeomOkGJ7Vrz GavFX6h6OgDOT+Em5PnSu6 ZXIvRmxhdGVEZWNvZGUvSURbPER CRDJCREMxOUQzQTgyNjZDRjgzMD e0Cpy0KIWBLFAUZaeYPaK0 CZKSKaEnDwA3NWM8ETPtPAMhVdE CLMG5JWBNYT1vS1orPFL0JnU2VX Y0HC2KbpVpHTL0BOZcWi0Y SO7fzZxqPUBlMTGkiyP1Xrb2Oe9 Or609TFM9RNVpQy8BlTcgPPQhK3 G5hZLgGFAhWz3KXiEwVyHm XT4+i2OuCEFjGYqq6qChJCWeXOB h2qhqEL+ItN9H4s3KNBmFWj0EAp 4TZYO0OIZLiYyAcPRWbN4n xTIYev1cdK4DTFaQyKKvBFTcTDl AZDEwMFJO/Ge8/QqiaFN6vd1cZR mspwZdvYCfMA7DDV7hn8Oe DJG5ETY9oWVdHs4BEX7SWUARB6I HTqXpCQAyAXMMZlKiXBRak4ScRH h4L0XkxHHcgz8MjBE4WKUn G22fCL8RJUY5Xl4YML4sdLdjOMS 6O6DsUYB1Ex6qfJXkEA1ICceeHz IiRKStyEncLIhBosh1TCNO HzoSzdgAXUbB2eAn2P4pZVTHHhg Pf6gxLnFwhfvUdUqtT7DVQ3s68M nDaiKvTmj3ogNzE4C8SQ0m 6UUEqrnAQ2WuTFcLYmNnIGkHNq2 A6B23TRmDFFUK5erYIAWPk754hT Qo5UqP3lqIigVSylNq6WRw VYXX1CRx2fjXNUV/DECADQplbmR nwHVmAK8GCB3ta3KmALB1FUVvp1 DeSXu1I64ojDOgOIEhQXDn KTVmRu4TlAPvYZA8eY2kCiK5ADB lAj1QmUPYON83pMexJ9NrH8MLPF mnyTWzC59vN71krR5sA9Af Q9GsJME1HJMrVg7JfLOyX4YkrTG rx8btGzqol7LdQDVdSgKjUH6kUV S4NA9CqIOMrM1rz9pfnQB3 WM8ZkKGfX5okGU93JXgphXE6FB9 QiK3Ma1CaDSTbWX5SbwciaLSmFD TrF6FpiHImvB1+Dn9MTD0e w3OtESV3BILsd8CzDXe3F3ZckjK lmsGuIYQaLUPhQk8Emd2wRm98Pr FvICU0DZApMZfkUQz1HfH8 RT2DDOPeAMEwpQnuRJDaMJEmIjx 4VNQ7SX1tFA8rNSZaUW32LNB5WT GbQs9XJQZbhCWoXAHyQkSw IJSKI2NayZD7WGSrG3U8jAVqSRP nZT4+UFIwTJ3bfh9eUWFwRX8lhh 40AX1FuCc1YZNsFxkvuQME TJQjCGKkEomvo5OyKOD4G6lajqs 8mVGuFQWnDiDqOU6KtWHrU00ldc N0bT4+s8MbMDKiHJpy3puK XUvDMBSG/2p2G8Bnu+1gDNzmsCB eoSZX7JRu1al5L0eSmG1nRnOIz3 d7k/OkNO/2feFJV1tIf1LL VxJHKfAUROxwBNLtRARxwkFQSMQ BXXAFrpYngVrHUIKt7m4BcWqyIC fOCDRfqDyZCKLkiGnXMc1Z 6PcmmqaxtQlifdgOZc5E0CuicyY TWKZKPQMPF0XWCEUS54wgFs2QZ8 kKKTFhSKT1QyOZM9/N0WRC Br9BxUW3Bep7qmw2qhMJzjJ8Mwo bfKfIMYeqF29iW9jZTGcpHRsnj4 gbZSAOLHSQCeAhdSaB8+A3 dPhSdcm2MqYn0mTAF4QokoGZti6 Re3Wj8mo0B+f3svFcpg7vIiqca+ mtrDRbq7ik5nHV2r7Ae82K as40ihIw4qBmte0mHApXtjvef07 HEoHpNg62wqX9R4Y0qhcszcxRbi 4Ro4r3i0PQY/N+7LH1OWF1 p42bP2s860w+w3epUiUAdQf8tMR Vh4xO5g/m7FTCUINrHpqKGpBfCL Y7tqGwlM2zghIaUroLLnNh DVQvVmxSMIgiBbfpsSFkN8TnLSV gAARkd1CdN9jmcwd1fCKtIIbsYi 0iiGDtLJ3EVoqW6AcRw+I4 EL3zK/f4C4EUDLigySsYPNjxoMS HATI9kKMdNuTXzCn3u47/35aNsX FOlT3zjYgqPKsu/nw9r8fI QKKyMLtwcxvp0pUzm2VaeNl1pse QK8O1uWrtcIuRcC4P9oW29k7Lt/ N4Grnkk/0I8++76yg6Vnb7 VgrFMmtVE8jmvxs5sOFgHWD7rXX imoXGYjOoI6qzRhOW1xBMnYH/ra i5NDwOIpCxYlqnb2AJz0r1 wvmrD7w4MKRFCaxI4L3miFQMaZm SyQRHob26l3YztGtjte3Rb7QBMe w5Mji3Gb9wzC8trqEnZUlW TaL3a15Bdrs4wJSHhmG+wr4uH1p F++X1E59rTCtJYHXXYu9A1+TZRj E8LFwMkP9AGxwacvN0vmcp 5carsuDwZ5/yYK8LABLwMHupLMK 5jVQa9e/N2p7N+Av4cxCNusavZK l3CQ3SEySprAtsTCYkfPQ6 nBW5tGtttxppLW7ENfJAt4UA1cl 1b3eYy8QSQm00Vqr+AmqdmwaW+t xQIgPj6KXxgQviIRKACw4b Tl2nklSvotTnkqW7h/74/uscZnO 9NF7Tl26ypmZ9DyLGxGoyvfK7uQ GeuZNsgPdZfN3M+wM4fC9Q C/Vz3yVsVEBCZQCOKx9DzEAYIff L73W2wYUduSfu4sUw1qzw4ZYoxp FsEtlJ3Ejjqoo8S6H8Gb62 DK1dFypPmkXMpFdphWs1H4NUK57 zhLT0hXMdcAQV+shEtVutFrlWq3 vsW52L5Dzr8yXvykdVibJ3 RIt22LUi6SuK/ZNLHX+s3l4DEip LaLkox/gkuOUrYg3JDfvG5ruZTQ QYdSRHKDyj0g50b0dtVkeJ 1YWDg7RP0oNakK9Rsj0hhbu4zvC wqwFmyOwYWq74A19qV1XUH+w79X WSzKcnS3Ps8jbjEXlQtzGM RaGAC3gaPq8FaE/PBNSE2k0BEwr MedntzUY8QxCH8esAiGdtdAPlFE 1MZkOYjmZ/VrnrQPGysbjn feKpsRsJSSP0K3k3aiNSwmU+4iJ SmvhYOPhBV4+pkv1AzxrmpVFlpU MYI3mwQTuFtQvp69sZNdsQ 89Hkvj+lDSnrE0k3/ihnDoDIY4W xQbxUV6pzFfsrOO+zgXNRMkAKbp /APsLexN/WP3LDagStek/I 2t9NNrJFBr6Wwyuv8EkX4Tiy4Eq iakax0x1iQdml0sHQWc/Dom0H43 gnZP/lymthcLgKQcCYq6by WTGpxWjRcTx86yPorbzySI+ZJIL zgQF4dpGd2GuXJa9Frhrs0QYOir Otxwp7DtWmaqo3t2OIQbVc xlNfyRUmFWihUbDrGISBY7rFWGA AbKARQHNBHfDOn5NsrGc292EVSG 12n4ZPo0mOnBKXiXUA82rI 2hZsXHJej2x0fOy9fuhDhlZqNGF RKUpJ6S5R4ofqh4EGdqKabZvhR8 JUbLdzFO5H8rboJ2TrDPZv T+q3hDYpkOCHLylh1rdC521fhTe 4P62wFNZN5GpcAnkR0R+4LTyiq+ 0E2JQhNy62nWQghhekxbYY d1jiX+XXg0sW7/WLyTJTckeyJgy 5aKqZpLpzgastJYag3M8psAK3Fa W7RWkssyNyoWHyIA8JUW6p p7SaTLNfNABip0QuDHk1A2XwhAK JWDXIm59uc45pzgKwOG2Wn4efiq OqYXGwW5IvdixtUWmsAShe IJUiq3VkWAJhnJS5DT2JeHIrNJH oU69fdJ8oMQ67BRluM45hv1UjDV OkU79anY6ovuFjZGR7P3Ko TMLcV0SkioAmYW2+W1AbkVIqbe2 DdKC4IPNrC61nBN0OMIvcrFUlYj QtJBBgG9NvOIg1Id4OrPL0 lDHnT7vuKKwsG0B2oZAgKZ9mnqI zkZ4KyES4dDEyUQZ8Hz9fgTIgIS 8IBdvW7Zs8qnHWBQjKjEGg onZbAj3UvIi6OBTjfDf9CPkvNkN PJKDQCpjJqx5mIbCRRVBMDG0i0k b9s2pSvnf+r4p9/tFby40o KgIAKINq+/j7cajSSWzfAPySc+x A8r20I2enBjhwtgjDCuC8Rxh+W6 Hqh1SsbSXl08bW1dBsR1X9 zFuxo/YjRE2QjlTD1OaTmCYisWa vXy0T9+hP5mTBAMX14tE7/jizti sIEvDWROyBmiY39/c6R9tS f+BQQnMuutwp0/U7xOI8XgJJ15v a5CmUUcggN2j86/noaG+GiLXZdX SO4ezf82Xbue0w14UMgnAS uN8vGdcOOCIaHG+C92bJfVbPfmK 3PeWq9kWYyMlUs3Hp0phgLcS/ek +IdctdllXGF6nZ0xk5bsrY 6YbIAngcPRF+LrKZen/DHdnm8xI jWSDVhInE1uPquS6MiIwywwPnNX Gp7k9+cFNnbVlj82bBKWda HkJVqi4r31qd39LJFDYIc4Cla3I x+FRjtvulAApXuKw3aLAHJZdcoj A4Kyp0ajDwgCuyzB8Ktu5D Kyupo3M1le83n5vCsiMivMspYwg I2gL9mDNMArk2lOAZagaxvACjh3 cl+waPswKT3Kt/vlmsXErb ufIFColZJGdy7iBqUAj5WOZGsLc aYPNoWWEZhe0DGlY6T6MJ5YZTYq FpKgAoQOfVIZQgRyXngU3Y wRLa1QIONbJhxXEyznevKfTWjyt 6VdOQkbnnRD+nhhzDePtiWo8cDr 9nyWgSqpYVvrIyuMR4gQmq 0vCCCE7MM+M3yoqA1L8GW2gXCqG LjINcYEzZSn3RPJLfkM9ZNLNA49 XduFpKPtDFvyYDVTBEi3sM tC8mwrdEFzy7js6deHvSJdh8krt 4WaIrk6z+gNTeO3jkBKpCNsPakk ppmFbdoXha0iqvB4owTTZa /s8crsKrbpER1W5Z9sPBaKb8TPf k7B11wLVhyn67liKnGCOZDek24F uo0KnZ6FGS5vLG4tusf/IF 9PLhF0LFX8SFNuKsBTY0fjGbmY7 lbmRvYmoNMjMgMCBvYmoNPDwvQm i5g9MosvSsuFQjmdJheDA9 Q2HkoN0bW6XfH7MjTVP9uYUsAkm FF4YiM75bTZAcqj5eLAigDkl1u5 AyquZqdKDdkkCcxRW1U6Jz gZ3qwxVtB9LiiSCdslDnQIDuYM4 SsbCqkWW2m7QnHNQ+Fs4EfVn6SG IvRmxhdGVEZWNvZGUvSGVp H3c7WSSpG1wkyzm1zNNtMKTvO7F CQKKxSUSuMNNhZn5YpKQ7qCPfP6 tcFDzpH1Y2iMYuTX4ajpOh zA8IiIZ0hTBzVCJ5Ai0mvSJpRT4 YIlsC8v6ObGEAENzz7rTDtqYePI DEkg3JgFmqoFCXXndTxFo3 ZzESRLZqU8Xiz8cSXvrxVQ6GJFw Bfpka4F0bphNTphiSftQYVuSJTw CfNrHZ1iIJ7jnn2+4ky2S9 Xq/ttR27/19Va+yd/WbmWz8+L47 BFORHIYAGtZkvrIdzqPtqpV4Ajw YAAAAAAOAXo/8PHjyoqmqt UlLExuddb3vhBxyn0ZXJAd4/PzA usZa90neFGytxxIoKopSNzWHc26 6qn9v8a5TkAMqPtXOybnYH iB6d5pa3NKGbElhvZyl1mSsi6/3 EmTARjS6ZVtneQgy8i9pi+f5Hne mi/n0H1oGoyuWVdQbm5ijO FdH62zsA7+lMQ8fig4t6Ppa5ssQ fbX65/tv+7gkgAaE4k79F3+jD7e m4wpZI20kN5RY3+XJ61YQM kzKiQc906NS3d5x/AVcCYcOsx04 +OjlkUY1vxMtgDO3Gr/vWaZ61ne i++rylc13pmuj3oRX1gXFV mguvQCnvc9SLDGKCbNKmohd8pfW 3QrpRdUP8KfTG4bfvCN+KDRjsBP DVq0SqRS9E/oOuOsxnJSri fnhVFuKwTdc11zQZcgOkzKgXWlH r98eJJAgAWFLHWr8F6uWXfARakt s15I2pRZFKv5qlvSERR8ym B7heBIHwMYx37Hwn6z8Jojr6Qvt aSmK2Z9e/qDrRDYXt7dvutZarT+ nUH/p0CxgUxdC/R2UxkMv8 rGWWuQrS+3LxtdHhJX5kFGub2N+ 0uNMgZMEfL5t1cz6vdCV0sddws7 K91RekYhF4T7ix6UtkJkiq A5XIUGChbFeHZ1JNGDWFsJV2zNL XIu3yZJBLaBadR/QNtsemqxUP81 sNkCJVgA7hBvswrfGNBNWK PzZt4sDEHldI06Kalvph68CdSt+ yUEjPGiycjpgvfGlNTWm6+bJWya Hrn5NunLi4Gr8s1GPJZD1+ jMyRXPDPijYmZUkxqx0N6m88Vet jZOhV3+ufI+SAqqrpTWbnbJSFN7 dD9wwNxoc6a1Tkujgya2Hw 2BuUhgyixgcS6hh/tdMOvn1ahOq 6O0Np3fWEbkJHKMPvaP5Tud0YBk r7ZvJM7cYrIJfXpbE7bFPd Cr6kr6RjZlNHKyPJWfJxuuKR7sq P3TyiZlPWI9gxLYPWwSLyvfhMyb De4gWNb34LZQnGLFQCGNGi 2WRZAELPMGOHkEnMTSZEZC1HKP6 LAAKYEK871bCYGYUrlm47sa77TM KxD4R28zWM3N713GOyK1cj bS4fhxOD1fANkTsOwzmREbFahKg Nc23qLhGWJJPSEOUjYiqLI7+Tex MKVvPV6DFNkbZh04vfEDj3 cZuJiAAXukJ6YtGIfr5fXhEZSGZ SZrfies44+aNrJ409QFXe7U8YI8 SAC2z9TsNQ/Ud7Dw5IO15d nAto6CQ4lz6MBq8iNYRMuqjeMA5 vhRh5soi4qqcjE3/SNOz+p0+fvn FwZr85ddNjqCfQ1HEtd6qP 8MttSRONQGVHMO1hZPole5mc/Pn w7dl5AnJuk5dzGDOdtw2WvKalg1 DEWZSVtD32J1PhLlVme3Bo 3PrWffE+vBGI2y4RpFkK3pZOXx2 V9KI/PxZJd4v4lIBzebcTOWR66i dw7B5DMEgIEJIBvNESruCO dS4++967jdiGmyad0591tGaBFgh BhAsXLojz6+TJqcXec1rK1uN0tY uLBvW/d5y2lAP148u4kLgd Z89S+M1mLuPUYMVZjmkYyztGDpx vVqk+Sj3RZfYqp4/C8DwfbpxEN3 2KE+fiZL/9h60Od+7cEf1n IuYUjv4nF8JTq/BdI5f/CF9VGLP HvZ9eSV5/NjYmPtQujI+OV77IzX CM+Mi7OB8/TUYcOkiSo4KN ZzPrb1hVQVHBwd98HA0yjX63CC8 ev3/cVy9B6vQVGr1t4sF4WwKKQK bBGBHHjB5rBG3os/NWdr49 BsuuZi8tdwrJVpg7906E2QntWyU o8i12Z/d2jqD9c2+f69PmJudety BFVJMUZG92TcIEVAUJGX2H SH8WVVQPRK1GxaBTBDEQ7J/U8QA LkZAzMKBXIboQbwGcH9dz4aRN9P bAmf4jl+vB3tIrBF2ntg5H sasfOPnRs8STlQPW4nJnMgYxQpr RTXJjettUq4nC9+spBeTcYFtpc4 VMKAsPo4GkU8LQjBL2Vrpi 0zdjAed7vZhemr8VpE1pj4gU7xW LNVPfV6BAtNyAVWV0tzNxJnpg9C HfvQvG7WF3M5TBmT1uZM+a OkMyNFfk5wJCwcW5xzfVrRG2JYj HLHcrzNgWNIhSHLJXINJhj99T2t CX8AFMaEAxb7atMCO64iyk 66/WyZrvXflsIE0zAY5NyQCGnyq SQzPd/E+2zyzqTqIER8LHA9IEbm xnkszjFVPlrzKhdq/lywFf 4YtFJ9XgFb2Bet288yryNAW8EJ9 z8FH0qYDa0oZF6/2U353KWnwKRA e1ZB6CYXyb/YSWG5SZ77kh xiDJqpcnZchor5dinZXYpjrxelA 98ZbAHFCJiRNLb1+S3afJ1458Hz gTFnShRsoaiALXpHJ6ICwX fnH4Lbx3oOxBv3TnwseWCQsyv4U T/r1NoiWCGG32b959d1gPvXCGCk +kVguv/rj/n8NDfzq+On1e 0iUm6b92xD03A+Xsl1m7wY6uy6i yo5lz+3RR67I4HmzNqYavYNmYES i3wF+Mut9D6vVqrDAm+A/D fhv3FObyhxHspVTlJW0SAL6yj9Q sGCJ0FKLxk7OgFMq3J1LkxHGYNR YGc39zj16ihzHjSY3Sx3fq eeWqBAGwG9SwuhphXDbcPTbwDSK ti4MxJETipQY3CT4HfSUrBASwV1 4ebS8gXN64ADivI17it3Zv DJYqT06yoB2irdBsZBH4M5YjBIO nP5YvihVuMD5+B7FkrPVicj0PvL L9FDBjV48vPP3LLNhliTJt GAuwS4xrage9uBKsNXZ3C9U4OiJ 1dVCgIO1eP6FgGNrnLK3JI2ZjHG Y0M9rgNSOzFZWaSXI+PnN0 xiLcfB5SjTIq2L0m77Bvq2RULOW W7AH03xR9vKYY5IvY9pDH3LqvDm +tB3gXkStkw9RZF7jWISYe sizTMklRJvXB/D1pXtZrkJQDI7B pfzUBMlx9/ZFxw46VSFSop+OJ/b u3v/h2c1fiicx43lAGS9F5 uAG3yIS4sLQ9sFS4uPT4wWT9gJA 1yUG7rWP8oZC2oUW6sWI1dJW5vA Y6bTT2pYA8jDO6pSwL9Q/P 7U22W4HJhnkNu0glr6un+b4n6jS 9unDOuoQjGKx29jpBcDhf/cLDPi qcmB4haOyg8uj8UrYKIXvK WX/1XtZmtp66+sC3/pWNqXYuUXm 29McDHy64PCYl0s6NF6K8yRngCd txzwHCm0vvKL8lY3xQN/ba rPB1gGne2l+GrEnv2O4/e6m40ib vu58+fuCb/8rUTk/L+koz3YkEkd g5Vj6Ey9/x09FEbAth0chz H1bGbwUGqmhgz+gkP33Im4qp7VB 2j7uiP54+33L2+ZPolneZ3PYU6A RF1KIP3EMV7OUM1KBS5KJF 1TYC5WPJ6JES4VWY3WMJ8UOP0CZ I1JQG5iH4G12p8x5Ar5BpEwD3b+ LANSsH6/fH4tLb6vvgepy4 z8AoGm1e6twfPg6csTx/57khi9x af01WH6q0xcinB/7p+HGgY4D7Qy hBc5vQZ73N+LB5F1BMWMUj vzXg3dnSIW/3VvOjle/bTqrqcNY 5Y9uyXUnpL9e3o9O9AyttO3kZwL n1SzVQflR0K1YP19rnMpvS tUMKtUMKtUMKtUMKtUMKtUMKtUM KtUMKtUMKtUMKtUMKtUMKtUMKtU MKtUMKtVPjyHMjOQ+189qR 01NaLwXj4NQW2OOZiMfQwKPVJMT 3me2CYRVy//DXn6+5mO5wep3e/K nsyrCmr0ftzochRxdT3Y6s uxUPT83ErDarfV5SEuXtY0smtdy wv7l+/7uP9kgtFDou42gF04ebFy 80EKI31ov6w8jjXoriCF3+ V/do+UV7gHiQgveVewHh8TXpAoA O5Di5N8cqnxshos8++5csieAq85 qWwxK4ThIw8xlZ2z6nq9rw hdohhdohhdohhdohhdohhdohhdo hhdohhdohhdohhdohhdohhdohhd jklfpzbz3Z0FKo3EzpcdFg 3d8uLeW38yKf7bb2qAY0pekjk8a SFhVTxPgc7YWnWZ+v7giRKYA693 jPdAKUnKoIWOD7F/zetEDr ttvLL3+/mFRV/9CLn9+x5CmYeXF TKKGPMdVuCuUQhhouyfiMqXaGMN KlBjJQ9NNKPk3E7JmfYebz UqgdUqgdUqgdUqgdUqgdUqgdUqg dUqgdUqgdUqgdUqgdUqgdUqgdUq q2voXJHIsgnkuVvtbs4tHp 7w8gcG0OUGpzqRKAPyG8oMSTbJy sDROi1eGPHMtCfTaY0s7IC6T6NQ F9ENF8BDZ9CEA4IVC7WPO6 APJ9XOF1OPY6JOA2YMF7RMF6ZPA 1LPI1ZXV7BCGKKOsRqj+0GkQ5P/ afJJ1i9C4ZUaSnpbrzsasg arpji/MPfjzWAS/+w1kbU+0Xr7x kvzf6hQMEnosiaN88x1xp4yGvdz R89HSfUOyAU//hrKgdUqgd UqgdUqgdUqgdUqgdUqgdUqgdUqg dUqgdUqgdUqgdUqgdUqgdUqgdUq r3SDGc3tawNkEsLDf0+A9n So9ZBz14pOw8tbX2cpLZY6a6R1y aNACbOoa8wOx3XcCZnvyT3ATBIE awa3D10577Ga1Hty9uOSDk O5arJ8IhOKOJQ2RM++ldY+0HTlv bRMoa73xVwtGXH7r1JbSYG14ziv ME241iHEjwDN/ZOQh5Gasl cqkdUqgdUqgdUqgdUqgdUqgdUqg dUqgdUqgdUqgdUqgdUqgdUqgdUq qfDzAE8nLyEvIlpx50hQg3 +eNz7Dwx8FuP2eoejmx7sOFn2x5 nAdeslmh2vdMGrfgPa6298xw5Bq US+aifiFA1oEnf/8lDMLVD CrVDCrVDCrVDCrVDCrVDCrVDCrV DCrVDCrVDCrVDCrVDCrVDCrVDCr AUAhTRDlNCKhGTbl7A6dz8 Or3HJW0qo0EpHHQjBFTbFG6qne9 jELGuJQ1ipc26LE7WvLYgBFMoQ8 3gqX0rWK30HKmuJ00uo6FW yZTfTQ7DDECzQ2MZJ2RpORRjx8E jKMJzvTB1VD3SzUNjMLDbX91ibW 3hPU97ZNhwC94bp0RcNPKl I93jpZ6bwbAnLYM5K0XnSQReD8R vciAxND4+M6JlsBIcln6HnUO3GB VpZ35kIK7SUKdoiSAnDLnl O7ybabn8pEUvBUMuJF3BJNYwzzL xKDNmKRXyR0HhhLdlHA3UmZAbTO 7RaUZjN8wADyvlA0QhE4gb dGggMTAwNT4+j1VkJPWvWZo1Uu5 ou7uq356v9UX1nnIzZ5p3zFoiZP GwPmHRUecWUirWaPmFI4UG /bFvELssnWAQwfIEuWmDbQeax6w isbmF/GCYsWO9jIiUgyRFRUnbOl 5KKNzN/nGJFbx5cyoM8QFh BtPVTnLbvcd4e/H2t304L93nkAV bSa13XNkbmbWi3cbmzOK1OP4636 cABpUFXPJlZn41867m8f05 99fm3J1MGgvg3DZbyN6mOVGNDJe 72Q3oigbxtIp2ikUlqfZv3D//9E /d2r3hgaj6frIa0p93cGh9 WrPCnAIDuoyGbBxUD7jbgtZ1ANm smGASSFSxAMQ7LORKxO6V3rAYPJ X1L48RFAXL9y/tHB+6BXZ0 dDE1rsri8MrkB4Dard0n1fShHdY TEw0/NNMGYPKqgYdIU4ye6+vrs2 Nw8DNsHHr39Hu1qPwjFAVF DDie7e0Cx83rv8k788uUP8hVJtn gXj1iaLyo29rlLFiZ0Xf6Nbb6nj E1ZIJMH718t/xgK6Rgzrp4 pZW0NL+nt0IeNdbJD7sCzFU+4L7 j4+VDMkYNDJFiNS42pm6hCehAgl vPs0iJlwVoET56tBo8VNj0 nc/loMUMgsjYM7J3pkx2vKCtTTn uRonFVVm5lHf/Uh15xXrz2Eo5Km dH6w/uqzWhYzXgwgAAAABn XIatn4zx5ZY41FDUrgAbzu7ifVx XSbjb6vuScRH9agg2h/Wqwhasb9 291wvfloxD1MR95MY6EC45 yAWd56bYmaa2Y6V4J/cNHQsAAAA 43+qeHx+9v6xZWMYVs8IxLO8g8+ fVnyjQzhet6dgdycxg3Wb+ zIoww53EQjEHDC1YKon0TwmTruT a8CD1bClBTRuj2n5TlTGW0Gq9DT AAAEAbaUCO7+scKczL2rZw u7Y1ILyt4+eZcNLg9Zz/f//U1JQ x57PqU3S3La8/VPAuv3Cbc4W8O1 jMkyIELTLom263R2BZ0jeB dv9Eq1B9Vbc6NrX9Pdb1h5vCffs Xba4inLhjgQ1JZwAMrPGn3jK4fR 8d5BGVUMPB0377ht7VhlrX 6+I1he7lASRRGOFaf91Qfqsmrr2 BTRwt7bR9ztNSHyzWTFX3ubmvYo 8AAACgmcjxAAAAQPshxwMA KGUsqswSUTBHkL0zQRAZAIF+jnL 8/of4Yk6UMo5KbSfyi0ye9SB9zT ObAQAAGusox1+0tSXUPPr5 AGf9r5UMrs9F7d4dUrbtPdOsby0 nNGTWFA956ktvJXbTeXUv0+CFL5 /wKC+85RFAg6mc9UhgUtA5 T6Hdu3Y//7894L15Raq0/3//2y8 q/p31v/T+5RQbF/Ip422qyjcho0 JNWuv+8190XgyV+lzoe429 05QtR9/B7FNRJgFohSqwQYvwZ/7 4ltbRhqfcQy9KNkG0PJXdlytgxB o7JTB5aSEAKrOYWllD/AJN owQtr8J91B2vrBhc/4owEllq8E3 //bDcjvruPHnqrSvjXc+i2LMbiH /XK30kAl1lb5vUFGvwWqpq 3qB7GnkFqa69lzl3baZz2HxrjCc qVFKxtkcd4/gBL0PgC5P+tvcvUe piaPI0o81OxqiCaV2m/Qtd IcknEvyJwGYo+b185FyZRgHy7u/ 5/Y+8+duP/9tvyu/VCjWP2/yGBY /41lNPPVEqXfjdf+X4Cw8e /OeHP/kpbi4PbfQXUjU5CBlfldl EJGtwqj4CmtJyNUkf9f8v2DS4f4 f2+dVBjgcAAADaDzkeAAAA rV76tuyRuDeb4JIaQbOJ6Mqitg5 D6JdI2TksxH4q0qrbC8+ tLSzFa+71RzTBzddLnQWW2 kcGY4OortrUVjm0NunXrSc8DUfB 0hLn2ZFkJv30wj74DLlZNULnN7n ZvVQ3h91eVPASWVGfs+Amf PToAvFjalojekUrTWpHWx9EmBax JBP8F83MczW0+3qDmAAAAABXFnV qkuQp8M6mdKNwmo67z4+Tk 7Mj9yjoAgy8x2uh7J8B1oCwiCUP yuEzhxJ4p86xYa3un4R66CLWRpL ZBDj60Tc6XP9K5dCPbLQbl AGhhv6IbX6uU84O4uOXYGujTCwQ 7Vg6c62qWKGRNeeY0zvfbRr8XT+ 4DXmueKm9WuLLJdLeGnIkR vXwPghLjkE4UFPSME0FsfCqpM4s F5n90GCgF0IOd5XKtnoCW4LbMZj Fdoje5shF7g5VG85uisii1 czhsPgFBK3NbLFJOj+kBAACAhou Z36x9rlL825ssJbfqAfkBk/6gvh Zsos74+YeljCdPpi8Rl6oe Bwrek3xiuOE1vMZuTPaqimdq8yu d7fKTCnWHBYJwEHRj0MoQxz9vem Jn3OCR84/MWpvbRCjnuN9T Qj2WBADZOzhDtbi9UF9yww7561O SR7KtgxjaXjeaN0aByE5+oMuXL9 wzd8InDNpg9q3KRMJvP3V2 VdQ0m3pf+y1ZR7LWKsBesjuJ/jH mRTgE8EqiSjGXLW0iNr0lPS5aWm 6Orp/6Vg97GJIKpvz6o2cZ nybb4q5kMcV+z8/KCwsLwcfRHO/ +0Wg9nj/9NbgZaen3TW/a1xEqTm 23+P00JpINDChTeTG31tFf alYxNcR68CL1e4K0SwWhFcOviKT DTZpX/ZVU0Ae8/MjIiOcPkF+/ft 6QiL4lTGal/iBBmbMQU8NY dNkGU0HLU3g2gogc9x7sEVNGCHk pjj8qE394KujyZdn7xU3Y8/ZMep pNJ6aChY2SLzdBxcfd74ph ukMbbL7qJwfyXysEGJCrT8oLZw7 r/mg9nj+gOaqwwPytoom1K3y5Wn ZLaAoNAAAAcEbUzvFukkl8 8tS7c7lkzUex0E6f83lH23J4Co+ 1ZmPLYcUhHRvE0PB5tw9ZtCPJ5w ek99vixfEESIJCyJYu998L CUEAIHoA0MELXGC0JmyTKKVN4Ll qChTmR1Xhe0NIq6ynxFEIC/NYKv steOuDTyVKpT/4j99++Hdv VdqrJWq+L1iffLAMPde34JODfLl OS1qzP474lQb/29QVp8OSAb4zX0 iaSGOGOqdYDq6eu9jmcPaF bppyPxMq9eUmmFxQddhJhIrGv6V /Km1N+UPm7D6KPYFrtFWkwv/81B 1q5XJPHr/+22+b4o5Hwtj2 W3YevYFt89G2sm3331ZXr40+9lG r7fq3tGRAJefLXVfwXSjR1SdpBh jAngxDVLletTr7nd+vjqNW 3r9//+ZvcBUuKBhuqCr20C6oGhw 5RQDYlDlwLGdcMEl1Q51FD93BM+ qQmd9k0lH/itJu4qz5JAJM 7YaxIbmddyN3eTfZgXlVemiMpan H19vT9PGPKw55Ypg5w5od6LL4EN eXumyunB377ASNo5g/yy+/ zKd0T0D0w12VLWUVUFCZhqHMOXR W1uQHAhGGLYnXTL5WGHOkR5HtmU Pu1vF908cV+cq9eePVv6JT LiH1PmhSmz/IlSjNjYMkckZum91 iQthYDcD4wAXrhkJ1eBPcfMAWgY 0HNYLZXg2ha2/kc2daDNuL qEsGd7HJmFFhlAiOvjEY7OCT0er e9x078S4EbvFQZZxBNOHYBayzmQ AbTrgmiZRuV9qVSsTUmm3X m0Cj4cz/OOjjemUgDPo5L7iDnmx p0rVjqDc3YUtexS9hZguUVTB7gX U4FlnTZeYoeLjKWtYyvofc ijrig8j6sW5Iz8bLJrGR8ASjZeK l1l4mU8wRUfs6Y6Qpvs9PDx+NHx qCOXA08v7mZcflvkklbvez cu23/k/55tgtSUGJFRKrdoGg3Kc p2Nbfr6cgRv9TTQEiap5EC3CpqP fPejuJy8w5lwQx3Vt9pvOd y/XV6ckeW2XNn9y7QgOCXy3rR2H UOqaBgqoWHGPOZ5AEqe93qEv06/ l62ncw7+fntVwlxwfbXIkq 5jDneTjcp6ydtmieeziGXxWwJ3z jfn6PJNLzS+90HGvvr9cOL3eEmj DZbDb+wCqSbLDzYzA0jsbV awuWqrWgjGvZ1/OHzz1/+F+v+/v 7WnB59/Lly67+DQ7zN0QFjbuUOy xYJmdyQy79BPOnBCpYfr0g teeldhOljR443+cQo8uUrqdM7oJ vxyLCZG9Bk1TN5lmURGMN3Ly4qq iJ7Cxex4AEvfT1J7gCT61k HqKdvxu61y8oSvHjZT9QpuI+dyB jI0wlkhkvXbKhTCuZYQiOPjfkib 4m6Y8Q9gpwTjbRT8ZMrVXi ty0GYHDRoLys+BWuAXeME4HsN9a +FU1tZBd3sO/P5+N4WaROEDQNc0 g+SGLCXaFkxzrlxFaN52+/ hDSasmX1F8sfY6lmjscg61F+6q7 GeX4KNSODbsj8ay+zQ1CRXR8JWx 4ocOEqy1kMfA3norb9I8eS ow0qCkhb+Gw2e/a0zZIun7bRCrc s58jyd2TWuOQ8KGYz8UXipu5cz3 4yNgadeVcOg5w2LBGIduxB EKLm5+hiXuYlFpM7IbfQLOVYbaD mM0Aaa0mmDSHUiY6Mlr/pI1Gl8p AmyqBaKy5DmyltwWU6ctsu uRb8V8wY611+tdwFoQynbW35tLx bgfvTViUiWnGK4rxg8hk6rvsrLZ jXodXHiD+hMF3O3RmFh8+O vrCwYE/XDRLNOWHR4Usg1vgxifC wTz9cRyfwfvbpx5KqxrmS99bKlz t+GuW3T5FmmH4plxtm1E63 xj7obcfu5oltGbG853L3q43sb1T AAACgrFg5/stav8icPtqcsFfhN+ /r8Eu9NqJIIABVjlAEn4O1 ttvk30E6XYDXVEfb0vVJGxOHAI4 kxbrXPSJLmtluXDEBNTw4joU235 8/VTqaeUjFVkcf4q12R+rW ot5BEH2oG293hrmBaKXp0nrRGj3 im8mAkzRXeeh3mVb69i6s8xcI0L vRJBNuj4KFdvH//73DjsMq JFgNRy7s+YJJ2gXeY/L+RK+bn07 vX/yQlOGKR8cdi3f3R1/CoLXuP/ 5K59JDae79+ewYC65Q0ybl iN9jtUFrbIxmrk/+S1235qT/5VW 6VfdsKTxq3ZN67oy/wPtJTM7OWU FDFmldCkpYIGcBN4ZFMcFU u0p+v/81Fy0FbVl2KPALhupf7Um kJ+ot1KQIAXx4lPaYC2rhrR384o 2Bo4imRg1/49737kQxWdrF A0+hsWq+cUxkpyJjAYieH5DFGEA EuVaNeq+d2MsBzsZ3YsHRVN2COd +OEok6/h7qWnOTbbWBB/79 I79/4a3/O4xE24OwPeXtCu14TCn 04Xf/uT9rHLqxvs/+8K8+elSwUZ lb9A5fE3lCADlblNYjjgqX vHfF/glco5vwiS7QQV5L2RWKYPL 2CoiXYFIB1jz1ok+ZmZmcnLTlXC 63tLQUs+p8Pr+0oGaV58TA ExMTWhgbG/J7t7B8kZMfMv33HFI Aadc9taODqbn85+lnrOhiQXh4ag ILx2g/ZZPE6Ez3j/zq6qpL 4fGl0+lcEafwuQhUeNY9XxpaBb2 bW+mj64MFUE8i5kSoBV462ZpkJK gAAACcBbVz/QbQ7uCKIQ4E Fdg1r2wuaiHH4y8wWxRkosR/bm5 AM33TthxzImNoANEealeyFMajKN 6qJbq1VlPf758yLFLbp+FF SoCwtRx4R09xDpkZ6bKU8eVZHSc 12jm+YZrjGmnzliC9ZmFhnRWF2F ylvOpuHPXC2nBQ8lUttQUG 1hJ1myvRD9AkbBzE7+6zi3HsGtk TIlrWlG0jgp6wfww1R7rR7gAuTU ssvrv+KTPYYDLnGUD9nSqO egzd6XP9KhO9grZp+UC8nKU9rKR Z39/Xgitw+xFkvjZ3BvXos06RPM rbOXmN6gi24J5IHmupndLM AADQUjVyfDBbj4+Be29MjV2cc7n rZB+mSROpMQz6m8RGU6Ad38BiJZ Gf768Az8CCb7aUr0EEiLqs BGx5EURZAQy1UsTkqCokcS8EgGS 8/Wh4v4EdZjwCF4JK8r1wHC1xsI a5IivYGhkuxLGBxHOzNL6u ovTjeNrAW4zyHYYCDGL23cdxkiu tCt+3oBRTz1SZpNVBwefhf+fdlJ U4g/Y3y9ccytafvTbKyo+r zGLYZuPWcnzXz6KogUtoWMMFaXA hOo8eIHtz4d37Zgdyv4zpDNFMxl is3CfcP3gcLAzbsvwq8yfd glgW2PctRRmLjc3zPihUbObj3Dv SekfRVoufbzzkCPqxW7LBeRd3+/ kmzDPNHJDJ3kj9f4eQs1xc q899mOqEDOT5OY24AwZ9ywe3Oke 6wI42ofXyf5L6bkJE+sqeJgAAAN K0T4ahVxSLKCAbiXNIQFMY +qJGOvPIIX9HHQ4CyIfQ6fH1j// Q75MYGL2V82dnQ/7dW3/wH7/teP sedRVGe13qc8Nq8uzf4NIO FWEyVk0e3dg84qPt/v7IJc5oSec EOZc6mxGKziBlv4b8585A7ZiAn8 Hhe2LR1ejh/JLicUCOBwA0 QMfh0X+Ujfs1Kt8dEtC08CiDg/R H/+esT37Y2vMR1NZWqmBKHIg+fW 2ltQ5rP2ghOgE7aNFoev6x W58EK7pzrj4oyq42f6hpAvh3GfL eRsVwt5u3jqJkzpVAbS///sHBQa mfvgl3y/qdp3wGe9NaU0Yz bfvDW/XzyoCEwZNiDd4SlYzi+NK v8yhwwy+vRZitz743wywUc68KpK aNBj9bnUzCDEUWADWiSA2d br8kmve7t0jn9UxTj30CEsYrrq8 317TEeNO1qxtKM48mnDURWO5Bt1 7KCQCIUogvlUqVZveW/AJN bLDU1INF1vEfJNfR8LHFlVSt+wA Z3QdoSeIXVBWsisqRFVPChpWz+O 5f8BEndit18gdU8/7smZmZ svfWJzKW2vJQVHEwkwOk3IRogF+ Hi89LZOJC4o4gHM62Ehyf7HPXtJ 4OfueaWR1BByZ3nTVV49hN xd0M3Opi9nrL0qrbUtRUTHCrW4q jNlyI7la4biR9fKaib8VOBWM88x GFL0FnxLryNTUK9/MHyC1Y 20i/5Cem5byPN5wFq7TocqVesE6 3T48vNpD5samyZf0gpWuK7zkcjM CV3d43jZWrhP1EHUig0ywR L3cqrS6gkwBhpp9jMznlrBDc5vx DBBW1nBg0HbsH2tcq7KjQylicuw ZHzWN91Ic5luvxaVU4Xn+3 SWsvN5nodA9otkGH5D/m77qMuNb jOqhtxGALj3j1SF51wiUhwzC5bO of6CD1j70rIVdiYP0UWfqY sat35lbCCokIUwXDj/IHss7c1i3 2LWUOZG1BN1fbVe4IP3u4w8aKe6 JqNTTnHn2IOITk2OeJzQha Wex50pSsgCa64+mt8LycRc3LkUT 2TXWsN4HDNI/+/r6St/a6Y14ec4 1FKf9OEhDCjn90jvdgOH94 +nCjFG1D89MY24SsPkwk35nddAq iQOFTH3OcEjKQTFVQldL47cavc7 BF2NRNT3KYsmDz1Qpdw8m4 kpOzt2HIJZvtkCYwgk0spAsskqd s3IyzMCj+E0Tc5oxWv+xtiF2h49 thyR3NTUBU2Ni2hawYrfCl E0wuhkMki5P22L5ZfeYXKZuTcpb MZT+Np8qo/VmmdDy82op66oHnDm AmZqBPKeFTYqwG5rE1VQ9K +gEAAICzoEaOn/IGpcix9TKJ34x M3PZ0pty65XOhnel01NB79/zatW scCvta7NGm6rEfm+jr6+uq sCVnlOmmRYlH6uemHKF3H6RMbmj 7+0VgG0J5swgbn4+dGQW7CxJHFC CGa+rlrXI2TmEZn1Oum7Gb dpStWOiXADnrmcTgfyQ5kBrHLtM HeKyAE33VuYmNZeOFsk1S3V1x7o u31rMapvyZOD9iDPh1rkJC 09sq8D1slylzKXSFIRBxfFtipV5 CPcj4ErmG7uw8sIi5VfNGJH9QJG OC6xM3onmgJ0dirjHgQ7uh CaVpkO5r0rD1AIFCCDCDJOT5/vT YAyhtufqE+3uhvqph8OobGCHWjG kZTD9p2+sw4QTj4116ZhYQ Elias+s3WzPWOQhBfHIO4AttAV6sK Fyn8+jvYstz1IAWjheryQyD8eh0 f/Chsi6Aa5nt1WaHLq6Dw6 /k12RapZyN4TFzGd5mjwgsKb8kR YeWxYNkFVsAuHEj5rwUcORXNBFX UvPD2hkg2vblk7m7pw2SnL k55LCuR5yuR6EyGXw/T+pVUtAQC sWw8qCHAz3N5/Ts5R205paOaPFW pZMY8G27Pk6YgIRS/I8QAA NMX9MwmLCWNI7sa2em+ZmZmcnNR CLpdbWlqKU+pO2Wio9Sg5R5ou10 jyWTjQVHN3nFHCGftSwrug ub3cWuH2/n1YZfcL685pOjopeLT m3pE4UBihIgZe742ZI/To+Xx+eX nZlqenpycmJuKcXZQOMTIy qaalTQQUkJjDzLOVhrKr40mTrXp V8kVh3fnN16Rq2DmyvnAjhp0XLn PTyWazrrORSBxNIiWLAwAA zX9SdTY1pL0fMUs04edvcLj8d2l TLk4znBx1HGpyBDJJxxEuoPFaFC dH2hy1aQ9bpDi9AAo27kzi kWUrOsiLBfWsTaCs1v2C9LkSt+f s7hXm2Gsk/GF+t5vV185i2onDSS AP8iUk8hVUUVObF9zRBgf+ hQh0ThvIwbKVoQ3P6BMIE2myh9U mJdOZIU8GjifS8N5gDLZMpJcoqI +t6HtsYgSpPwl72YWetgNd tkXdWjnbJsVws67cEJyQPFwnFTq GSziQ7oSrb/DiYqAz51u9Cz9xq4 /UgzKBm05uMt5E2vDThRDi AIN7ZkLmkHvebv+/E4SWPrLVW89 KPFjz8bbFchye4TTct5PuIbeMRd RQ1WNa4e8iXdy6OIXIV2XL SWPe0WGxkQaSRx11btdUuGW76e7 m0lS5Bz6eQM8x6ksh7kZ6MmDiK8 8Xb4JpifG4vC27ExWjCn93 eiXBWfLWAAVu+/E45azrdxorLuW AUjLm4mu1ApzVySaaH+t1f3/fdr v27hhbiw7G4gUdPPnrAWpt aMg0vjxZBIQYUjZq+EGfEnkikQh ZIKVHI7LsUzGWRfGMOiUMzjM4zp VQ+zffUH7bq7yq6ygZEmXv S9vc2T3aYiQGarkqU/nTDX0VHhv aY/NqvEC+D4o/cO2nrUpBIkC4CL BQCWN71VUaium6y+Pfs74q u/V07nVR2Sn8exiM0+na4ax25go tLEGgS90gzOv5hsug/v5+dSG0UL BHFOpIEUohdRpdbG4e2G0j 6wUi7VfOJjWGqEJqtgJDT0HAVJb DweeKBxg3iuL8qX85Ytbxu0537k mDz7P2uh8xTVtfMrqvc9oq NvJt0+4qRZqMY8B0rYQr5jW2F7f aEE4Ykl48uRs0g/t0kAkW4oehPk WzL1+to8tLZCZMNJ+NHK+0 uru76+xccW9R7vuYwi6BXE4A1Wc y1x5ic1VUVbMUPD+n0+otRLdGK1 FqpUiP9FvoqDHls0BXfGdp rIG7aeBI8DQeifoqrjl7ZjWcccO WHDzUQ1YTyaS24kQOFPWa1S8ZO+ Mod8KTOVduQzChUw1B5Gyd X29LfsDqxwuUSDs4dC19Plhnbr3 RsnR3kTqhTU7aw7kYaszPpdgEEA dIMAFLIxJhYc0vOTxm4yYB VyQBKUyJOS50AE3WDiTMZTZrfaP AAADthxwPAOdTyfMS/umE6Ijnct PA+fRkqxsAADhVRzn+/v37 XoiTeF2HSfSu9iblvbGr7sMIYPm sHpHE603Vly283DOyoSk5O3Rjp2 wRm1eu1b0uoL8UnGrNJal6 tbVqqdvzL71/9QxxSzH8FMAsYgB 1KXR3LU3WVXWO4W7O3OMTXQX9Wb rLFTIK0EybQcEIIBCj5qx+ gEmnob0Mcsjt+s7OpQ0ge8+/Pjg 4GKfw+eh9RuQhDfoxDL44KIEc3Z MC7JJYO3vtH+bz+eXlZVue ib0qfKxfXVb9LMx55L7UZPZVfHX h0AfFseH8pB5iXhzEtxpOYb9SXj uJV3eokZeydrZn3Ryapcbf xspe1QlvejLKEOIzV34qM+iz5f7 +/pWVlWMfyQ1+Kn6iKy3pLUW047 fml0iB03qZ+qi09BwDW6UQ pQqFOAsP2RjZ3GWtflbjYTNKgDH gMP/HuPeeufgLke6wBfz4vlMb5H Bjw/E2jiwzyAa8QtnBZ6xb Zc/XdlRrtZJRfAAAAJxQHfPjFXP K9kWqJvAwwLQm/Cnabrky511hS3 29T9XNqlIezx4SWr9QFI7+ /XqV+TG3JCilPETT+rgnKxj11xu W5IPZFD+1fohxSkPs1drxqd7e0c k9nAke7drpXr4ww8kg7ujN mTxvC9ZC6wv6Obv6SPuvGn5cPZU A4IyLm+Ge5d0izF4aTDBs43tbQz MsfjYme55oocc8ndo8okII 7urlNkSuks38ZWqMuwTsPDoxpfm maAard9LVa7hGGhiGfNqxsO/4r1 977qui59okmXVlHY+N147B 8+8c6hMVGcZPCLZWBvNmw31nt9n 1oGlQ311SCh8/ElIsFkNrlIYVeW 89PO5wX9gpehynKaUzCYed UbW0k49TKzzl62AHgg4lenNgyly WsvEXvph0SYZBGJZRhmZOep95ne wInA1ihag57R30e1KcUm69 fsf6Yn1urSHdT6F6oIE2u0j9kmW 1YaqhaCs0TA0fQG4/X/au1ipj/M dv4o6k9+4LHrzRn5CdNHmK Vu2hWUZXuLr1pdqTaWl0YDgOxn5 gmLVvFXv2LKgCrQwugqy2a8gBwG giK6PmgxWoQO91ROrQO4bK wpwxq0gSfjhrP7LfKQvosZL36RZ imXWd3zeX4VXWn7f4r+Zc4DL9uO qJbLkEUIjF4vvp4vpk1Yq5 6+s5n8flZpomJlGCPJEvYI5sx+P GDe/D9oLgo7nG/QM9eE41FUHLJz 7ik3f1ft2jwhHhTfaxD9K9 qQjGr6omnbysBiaUzqriRr0z1Zj PhLWr36WbXuZ80G1IyGmB+e758a rKtV/9qahcB5RCaIh65h1s lncpHN9Fb7uDssy+3HOEXJN4rqD 4htCvzaVOVlQvh3tJxy8BzUgmtQ DzLkPFQvVHDxS/zZVKRtvv 9cRiulxd3HkuUKvUyhYNmd6VZJZ vOkB3qrYIMFVTTMDTRcZBIHaUMJ 4AAABoP+R0QILJyS6I0pSZ SYZ6z8Vi61+/s8Zz0ZmWnBBl8j4 y7dyTcS1uxV2pzFWs8V8I2eDfnZ nEOZ7eeqe/8eJF/krRY+jw 7UZuv7N8s0hCTtlMnYby8+aXXnr pVI/78ssvN+7KQItbkFp350tT/M O1/McWvZhU56wVSHNE7zLX VuYXHEoFWG0SSASzY+Q8ALWTdX8 OwiGlApItb2qJX9bsov4EAdQUH1 yus599wjszQ85zU5L8sS7m rBW6dH1Sr0QwPdZAQDpdu7bi0aL BdtYUfOd0ti+vZzKZsrUBAAAApy aOqdhSn0tnqCOedCP1hGEx ST0btSm6UD6+SUWwVK76GFVo+R0 BFvdqof9cKF7smeqEYdYa7l7BPr TLdvUmu2oLYxKFMMKHzqD7 jQ9yn8SsIqni53GfRYXoRkCaQ20 u1HdsRnCkfOuCknu6bxd167DznU 9lJMlwpDmASqg4lSfzxzkn gUo6eYWN0f43XkciCy8Vo813Rv9 FuL4Q21wTQ8N1T+2p0lXLDjOIxX arEmuVKlxeXlaTbDzePhmw MppPKPvDPvBfYY59xZC23tKBc5r LvyqGAFCzf4xRt7DnWQR+W7duKf 4qECubBhPz/He5fkaLdNJr 9gMPzlVh4aW2IMyIGpfqVbgjfC6 dFpSvX7+uxmhfZWJLwErJFuWj+w Y/RCYDPboWdQ8Y9VNybKsk 5g4F5+wbjOdtDxHad33xtt5XM2g yMozRVeY3xy8RzWosMRNP7ZBHNF BzY2rDoRrzViokY3qWQrFX zYYhfZ7aJI5fOMxo/DpuZ5q35ii 32q4ZEg69Dn/XbWHvZ7bACUlDdW Vi/n85JfzdDra1+7YbhncL qweXa4VH6RbJJqqgd5S1c+XGxoZ F+L0xhlGF1mfO18Nw7a6xR/u1tT UtqINhI/rK/osyocSDv7z8 oZ4vtDTIHlWXuHqRpPQB87jUP9x Qt0PwQFLZoTVCwbQifb7HuNlFEP JtwI6LI6h6b05tbb07snaO be3j6HH3BBsygud4k2i3Mu5HMYP EYBB4Y2kbm87i+kt8eawXhW1xl7 FragoyYrje8EZ7MrgVtIjk T9oYh0dadUYP4kiizYWgjqRH64y t8PhOdIRG2KXyZ69N4ImpreFEzr IvzJBPGLH0WgTtscyzvKZ4 +7Rsc1myuxoGym+XRT9io9r42Ut etjiuT2ej1tCxeg98tV6pu76Z8/ gn7LbbG3dbnCoslbRyz1Wd mHjQ068Yddk00mkqKi9zBvTe84k 0RFujZTXVZs/hJTA36cGVJMCD3G gcb5k1+LoCvf1wA4/Vd1Ru BcOyVGcFSIEWTSSjwR6imxu078W HPlVOE3cSIRL7nc9/qoF5Ndfvni W7h1R6/hwbW6/GhloG0aqa bkxCeb5eRSOp7Nb22Sm1YxIQKKL 6dD5qGn/Wkvf+QeHJHK2iHGcw0i noW9uiaAD+r0uBcspg0fOY VelB5Ec1bgFNgQPiDZm2G2v5Xo0 zPExsQnQ0lhryp+GuRtnGAwAAAH Pg1xIr4R64E5HaqPRIRVAR C1DbjuwTOctintzCFQSILw3UQOU T6d64VoYFISu/Rzm+SBegKa53ds JfMs04BRTE2N26Sm37yN+/ /5vf/TfNHMMf3K86s8MIsR/bb7/ dkjZfuXKl+LvqhFIrjGsWHi7ORn AX3AmDPJhk04hkrahxA7uk qwu05p7+9md/9metbgUAAADqxvx 3UDKMxE6T4cBVVWG1L83VJFEQ3x 85HgAAAGg/J8rx3/nOd77+ 9a+OFb5snwvr+MIXBgYGtPDiiy8 rk6wkf55+fn7+5z//+RtvvHGSet ByH/zgB/Yg4eP0h//8z8H1 3/rhE3643SS7qqNb3+/+7u++//3 vu3eU+8Wlw75SIbzp//Efv/rVr9 cq7eX8lA3SYFYf0oxG/exn P/qNg4zpVHz4RobtzViPbk1//OU email production specialist/VUu3to84xQicdF1/5d72dv9C lk7Ncv1o1Yx4UX/Wpykd4n f5bmIeP6ajw/2SfK8V/7dc9p4B2 4wx++/fbbblNw+cc770Xs7rDd9P 7aN5rgac/77xjvdP7pvFQP sl3Jn/zkJ3/xF3+r7AwqJqf4x74 5c1lYVBthVie2m//85y1wv/baay +88IJ+IzGiXy6BLB80kmiX RMlV1fy0TGFr2mTuwjrJjp35uJP 6dsHJ4gyWlbZ1rfr9aG9p94cZli h+OwB45+Ei9KZMT7Ypjn5Z j4yMzM/Pe/4EeFAGJksY6wktup9 hOFY8UlmANpHcIQCgG8WcWTyfh2 dAX7E8lnwxDyaV6O56bEkM 9z8VvlRjs810xb/84Lvf/a69Q7R S23hBnWAcvDzR0gyiyKZwQMMXaK G6Va/W68eIjM9dsE+PVEw/ vZjavjmAMSniqwym2kC0q6i5hI5 H7U2uI/71X/+13rGMIp+P9is2kf bgIAstF9nyt3uAynQ0X3fm 9otCP/vr6+aqJgQSg0Q0l+x2/M3 VaLupj297spUP2HEqLl834X21GL tyDVfISYu8ZfLY/ea7blAT lStX9E+9D0xRNztuN3KvLkN2LP9 DD6kO82ADhhR7Drzn+7wQ1Vpuhb pvJV9//RV0emLSg/rUj3/8 06CJQshbhrD2zctdQaeYm8YerEP v3r0Tn/Dx7B7IJ5QSzAcpxM3oYo OKmGqYQqeyBW/T33RsFM7O uMkOb6InPf6aG8oeXAP7ETFYpEf Pz5a//e1v/83f/F5LocizJZG/st uvP0Voypjdkn9xsrED1IgX pRTKtaC+jufPz/H8f4/n5+er5Ph ab95Ydt4vkZ6c770EdtWjawGd6w mgEWzmzE9/+jD5Jifd/OIX a+86mY14Lc6nO+iK+KGfLrfVcnw aievHO4I2J9+xLMxcqUbQvn3f55 3/tlf0VI/g4jKP0B/gER83 g861gqUKbUs0+vo+//aPs6mtaUN vD+vjFYtF/kLIGteli1s5wt0+M7 C8gUUKsk6zmdDcuRk936zq 1Q7BSJp++zwvuoHJda4skwzhCfq s+t37PPZln/TzDFuGfaBIA5RKCM nl1i9aaB+ncwuKebunZ1IY PBeMfB2w/pveQpbjgfiee+65n/z kJ+cruVtASCQahm4MeostCJ8K5E a3aibrRF7E1cO/e+kxFJzT 6xp1tGvcl7yl8mrE5yXbbwMAjvm borS0clU2i5aA6XVudaucRShPII D0dp6ngUi6T98tttGZZ+pU eUDVshyB7gM7fU9ZXwyo+cpX9O+ 3fj/QiwyMLbJId6Na7myKl8I9U6 /f/Li7VOSNqhE/j2VhwBvm s8/kBHd9NvQ2xc5Q+hnQd+e73/3 uiy++AZrCKNq1JvY8c4/xjW/oS7 ko8Wkpr9uQ3sG7ll66V0w+ owT7Go0ZCgH38xbk9pAGCisfvTZ Nb37Te/6k3qLrG980qmvJ9r/Qt1 ryWyxRXqcdL1Wtrjbmeepj tEi5B2io/EIomH1Hexs5679GnC0 dXfU+TWXwziYkZl3je5gVlS0LcD AIWYMz5lc76K0H/lUwY6MS c6P4822rOggFkpC3zNcXS7vGmlY 9JV1b8Yc/+IGOZXe+LwZsg1DeXJ +dd39BSchxulGyFCC/N9wP xnmZHjiRy1641/nuu4h3CYSnpCc /3COi1G7/YKpM79D6O/x8HOpjib 9aPrjefMvn+cEuWk/oofJM AJiNQkNw74eNQo56h90R/QMCrkC VHm5TB99c9wFPfUii+yPA+/aEQr 77ofoj19xmer+vd7286p/8 wz+9nr1BImaIRege9aswPm2WXJY X8X6ISU6PFHWu+JrGOW6GpZc1/O Q5LMmGZ/9yPSgJUUVB4Pwa DwAAALSfoxz/K1+rW4LW+NnPftb qJgAAAKBu/r9Ulh0FBMxggxMyeO TjPC8CBH9ta7GiMHF5SJCw z3TmSFs6K7WfyYZBSGVNp98vg31 vqrVyDZ8Gd1qapbZfFSWnE4Zsem vbUDxgDYugQHRcv5CiYYJk mCP7WX2EeHDqZHOtK94roR2lHQ3 8WGyqA01mt7XkDHMuJ51nfS2pae TxESG8P1NbPIEgB2AtmfPk ND4+X5JugNFnjh7VjFL3EZMiA47 mUV6AOFegvMCiWKGhJ9khlep8hT RhFEX5W5E0KtF3zUDoBT4b F3GiICdzKQ3VW7OgQLP3X1vfCSJ oIDEwMDU+AeW4mgXyoW4FhGRf3K 3v3lHZjBRGZDByAOYKVNvG UzXLehXUbPDJaGmaeQSEnsZ8UTh 8JV86POYzIUYA8LO1QWWSR6El/E zPPuwGh5Yp/D6/IaE24G/w afL81hfqIJcIM0oMIZ4OoYKAZNy bHsZNDxznhtDBmZxDypdTqz3FJz uMRaZVAu7rsFdv7Ayt+r5E vqsh3Jr8XMnxIpEGOh3uOsnClEs tA56kTxukpUKE0mSOfHQLe9xB1T iI07TDlpoXx6KVF2ZEldsv 3PBy/RQ460d1bQcHBO3x5vM6KD/ 1SvbI8iW9Ds/SWA+QGepqn+hJtz r++X3i/t/SiaYT1JXz1RPH 5A3kjcneu1YPq6un1cF0SPglEh3 giqrag/Y6eut9lhsp2Hugt0ID1h 6NbM1qel/838rD7b50KkGn JCffru7T0eD5NPG9E2XTA7JDuOX DZRnjRlVRGhZ7VPQ2A4UYC8MSfQ FZDRyeIwADYtI2AYJ4Y0LF A9QKxWDIUEuzEfTGWdR6NTDt2op xEv0RubltXSIAgGnHLXD3D7a0dd rH5Yp/2B+EzHgFnFJVezhu Tt96Z6W1srtoY83Km3SWOkNMcOl qvY0Oo4Wy5iclENqkTTAKvmj3Hr FwmTemtoWumWG5AGlnnn1H LR0yMTqsSd/RaBNpqRJAjPwec9q wPOrOizbkq4bwJaelkiF9Km0NHf uAaU9TZ81Mx5CNUrh/Giuseppe+N emXGK+JFcmoR8MJ8D6EPL2FEsIV NILoqEuOAIjR6WIA8Z1ZMM0UBqO FTGZbiCbKIYoA9WBA7Z3II X3WBxUWSVLanTkVGFhS4ZMR3V1s ozP2lcu07sf8dIHQOGlb66q5ggX Gwz3dWboBIPnte/VDupHss 77Ymao7PfHxCif+D32RGif2O2od 0ZDKakVw90nNFh/MqLhLm7Ht9Sf /z7JkJG2Qo0bWLXhRgoAqH CJOdp81YkwUeBVrTS+33kg+9KJ6 DgtVdtkaxg8UWY0yMv1oW2RsX3g U5+52a+cgLYA7dhI0LMrE1 DIF5B6MIK6OFqRR609gOi1h/vnz f/BiurP3PPnc3vjzWH20zfIHzMC q4fODrjwRYhv4YWadYs0k4 +1zEw1g6G+IrU57t5k1iG/iJXVu 1cuciKUk2uVL+vuEaUqW8kZMoLr 78C6QMS0QQmBSADI04cT/R 4j32JQEhKcaWo+1kDPMhd7/eHN7 yq/K9jVBjz+GgLC5FC1iCMjWxKC hknx4qt4Yudrb/PfRlHl13 X8RcYtO+jjtWZvSU4PQIB1XCT11 rv2tFTlo2MTVcyg1nIF09e0+ffl 35KA96sDpoSkvUwj0VYw2q b2BqMDOklzgRSw9JyKcwnFVo6AU tboHAIKxDhZhpT8ichuTEwfaarW pKzh21Wt/iDQplbmRzdHJl RZ7KCR2ao1EzUGQ5ORVvs7GnLSc 4X5SyhNTZXSEJm18jy47vicSyWK 0Tm6fmynKoUQOnC1Usaqem BLMMUk7WWDVfFWZRYTKhzsj1O0S bdXONHMSIo21hv78cpwOpZH6Qi1 tzjbJlUt6Ur7w7jH4sATLx HCOyUYMlLHhfwK6qKRD5Mv2cRbr rfLNrT6MgRSZoANAtu3PcW2qggB ikoIZvQSCqWGGnD2TjGIm5 JD8VYKZnecSiFyOcJENuS3QceAh wMI0NzNMlCX4OxVToK0jZOfoaF4 AxG3adxEiuXFXuYM5+c3Ry MDYtCVv9Ps4pyG0KZRbJULgOrHD VB5se1pJPvLHRVfOQgOEmvNfXiE yUQKVKFUtoTnsU+4ufZ7b+ 8/aP37QaSpYZLN214jHEQYZhVz3 IJJCotLJFtIJbZFLjz82ZEZH2Uk 7AGSZufDDZsVQkDISyh92K KSW6Hr8BJeqExowhvznAVNzd+FW 5g40piyDrQwzUCnX2DiZdSjsUKM DdWP9FHUf3JSFL9VAuEXQW Q2lLDMDrFI3KRWn7DRBU2HDvHFV RG2xGLMDkVB2UEDg3BVAV0XEkJR EDN1qWLPEdRM6GETr9OICS 3JPoKLGJB1fHHALzAX8PTIh6ALJ M3KBwVWMFL9kWITCyAN8GIHi9RC UH0DCfQAPZW4hSSKRcNW0Z WSh7PLQV6ETmBMKFL4qv9JdWu66 EM1bcfU8PZNfP8PzW3/0fO3Rnmj SxHCNUxD0KUVH5Gh1EXBHs mVVUyUUmIOKsb13YNQG4Cc3NMGJ gsCGBnJCcEDWgp04KDIN0Px6YAX AmaTDHoHPbUSHik76IGGU5 Un1PZXEqpXHUpYFyACLcz61TXAI 9Ry7FKKImlGSCeJWzCJEba95OVF J7Tj3SWNVahUHMpHPlZDOi x59FUVT7Sz6JMKFviCEUvYZcGNO xq91dj9Vi377cfaEXtDhPCUMm30 eu7/x5O7qAPgpcQKNxVL6Z HND3oUgVCKMM2ODOwLsRHuBUOj8 ZJKO7mLqWRBVX6BIEpDoDK6IA+9 sleszdU1t46tMj8mz198+6 j6HszSa5W8pF4+cs/VqnAz63iNL LwuFIHq52IPz4QOdWbmDncYqxia /58/xTMs8fNo0k3fez6cPf htgWVq445AnDEq7GEEcx4NDj08E cD2q6NA2FYicNOKNrDW2AUIl0WN LZ4ZSjMSzy3Qm+5N5wHBTC cdy5Dk82n+ejPYDrpOMBACCPjgc NqFn5SeDO6cw5Frwuw9KJmavghk uaMJprk07/z6t0qu7v6+7t d06opm58qVrU8FLV/7bo8uSvK8m z3VXYqNSk4wPhoYMa3qdmgt97sB UuqvN5nhI6+/5jP3S1rKuy YSrpCiGyBmkeDPIc9KmKPWyc7vC AII+PZiEADAvyWQUs1AvPSDti9u EAII+ZSxQBKR6AO2wXyY7J DA6bp3AsXFTkDETfSM9fcp5sKSS eKI5xvu73SA3ZnEFvIRSqC98ihN 3aIQ23SXhuX73hl8SVdYCm YB5CNMHsL6TRgaD6J8HcJ25xELD zye5qQEswZnx6m4LmodFyhTBqkj VwjRX5D6HbpO6dxhSjI5Hb iYYuziMpZNOlUX2MagYzqLP7b2S gMTQ+Dn1EjBo6WKGfGliyfTJFQF CsTIRqJRImP9h6WQTbR4wg lxv3qAL0Uh5OtDT4nYInT4uqLAs qB3X5mEBiNW2ybmJysV1RfDB8kZ JxLMY6Nz4keWDwNT4CWyaC 0yGqKMKgCTIvdtz3eVlG8ESCi76 5QMK3KsXttMiYmB4j3K3VggjVq7 KO69LF0LXydzrzL7C2TJbj JyYegzi3O2SesaAiJOX1cHQ3HZc wIerUDcGUHHmjdeCicBPsKM6HML 8xc0XtLKS2LATgi6YgZZn6 V2HluUTZIKHHe91hf72mhvNbTY6 Aa2zsleHhUCYiS3VxdybkEZIOLz 7SNCEeETFWXPTcmxk2B4It wGPVJRWAh13ug70kzzWaBU9Uu5f nwiPwPj3Yx2f1nF8mJLHnREWwSO ObFVknfW0oXSO9Kh4qVipm eOFbE3SuHZMyUZZzc4CkX4sqaGo qsEMqZL9HAK3zvTiaUGLyNq4AWO SvwsMkGFXrGCBiG7OwzGpy NU3UnFInQD4JiOBtB3bJTmpfJ6O dE4ycgGvjLSCiCN6+x4NaPPJaOU r0Is7icI9sWUZFo8UyhY+A eItOGiwzFULUTMWlGPvSApjD09u qoNtAlA5kam1tRLO5nIvHCTtD5j eiYTpS5RbKjo/bQJG2Rwd0 hG7Cw20n02lDQ38YkMFzk6ml2iK j4/CjSwQMLVFADRU2VwqVjrEmOA FKAREJMUVs7LzUfZQJBQZV kJGhjieEEEIIIcQ/qOMJIYQQQgj xD+a8SbgsDl/jNZFIPD4+2v0XFx fRFJwKHwh3ts2ph4Kkazec 5PL0ScJKCDBdN8nq96CGcRbg34+ C0TwP9yNlCERgU5seZKXgWNMcvZ 8iqoudjQkiB0c8MJoHi7VB XEGiL3XFyb15gUerpOSE7W9pyj4 8l7m3uBL+sGTLPSu4t0B54e5x1y I/VSkC74Z2+jp88+bmJnwz BFk4nNAQi0Mnp/dc3FO4MArvNEQ PmR0tNcL3ghz9+vpSeuUgoos/Zi IuJWrJHqkN7tPzA1FgCQHG BkaVysZIYYCyJgoGivRW7rd7+yS fQ3wBW+hn4u12e2EFdN18Qo3CJM oFhKapl6ZCMfn4i8RgRg0v 391ZQk1yruE4DMbJ2XxEUxPnaDD zNt3peJ0oi98kCbZCJOfTd7P2jH z8/Fgs0rBkhwmPCPxVHJNp iQVbuNmbTT5YrtOhRhasoKyZubN 1fUEC3dcY7rSfPKPx9nUTe4Srh5 iSQnQ1aAxcXfJMXD0cOrMo F7EEzHMa+GV7OZ9Hp4UwfFuTxe+ o5So3BgFlei9s38/aGwzLjAu9Ba FeeRCZ3eplBrXGVTDOLUWR PhLUkuFw9E1P4Gl81WUVslJYI3u W08h2Wt2DwKANGMMC7Ji0+vr69P DP8yNUQVBKtIudJfQR7sub +LSJ53J4YFpjLewZ3VLbX857iP0 LeT1GWSRNxwoJGTpn5BwTAr2HVV 89pBhLUaIe8HA46X8G7tto G/L1IGBxiGn7M4Z8YG3roE8KmhK ysZECAtVicX2mhitUISAmBF9hVc zxQfoXddMJzewHj0C8lQkV 9AhZZIzLlh/9ddic4LjY58Z1FWB eQDnjV7wVf6FB3vjpla8X1BSWvc D5dsTgE4M1WgRHiPgVZ41S bcoXsPKJCWeD4mALyZ1fuFCl6jg /EasimUw6/C4MI8f+73lal/wu5i goxFRgAfFicZuL9cNLp04R mDdMaoAQMq/4iUxoEBIsOg9DDmm SMIPMgihXWpYpXZ+zvJ0Nd9NY/E R5mSnJl9Y5pna73BJq17TV elq/Jmpcdk8IdfEZ+ZkrHf4fPmw BN8eidOyGdGrl3KlnUNt460DFV5 pQVtUdmQYwIK+xl78KPghn b28P/ycpT3cLVHEU+e8acnAPgz+ ktbjVBE2ZsLvA30ku6l7OzRAaSO Zv7Ev0BVJORaLzeN6YpEUZ xSJ+lGIqZMEDsP1OzO/IFzci9Fb oyIGNAFo4Zcb2/+w/KeN63tqFlx MCiQf1yUnNjvil9nUA7ZFQ Fo2+Lts7y+FLm9lpdmtPBv0EBm1 LJQqHqEUIRLtHSS7ZwKLSO9CHw7 8ul+Zf64JxnZurpHSqRYeF H/VoV0JstB6hjCrHE5hG6dYHE8e WRPIS/8hvht2qROVSZXE9q78Xqh VGEPHiz3F3dT+NivITa7bo mEEpdk+bRqhcrzXU5xQ4kMUfdWE F+Kirv/oTwcllcGsH7xNgnE30QJ WNopXjdWNF1li9iCH1QwV/ J5/mTSedpMhAPIM8crAjVHLLz/z ryuMchwEvcsh18aSeyXsRgyZank s3G6d2zbgKWGU/QS5dbD5L BSGE+GgZfkfH9+yuZhBrP6lzN3+ ZG3L9EW2eqtJvAjwD/NghFPNthB YYIiOPWg6UmcV2gRbh2+MJ KFTLZamsU0AbSrhlxYOIiK7CrvG CCCGEEOIf/jPbs7V9NBamfzOcxB KwHZ8BVE4bp3CeXLYzHDXf k1BwOWt0G2UmnEECOWOTn92dk02 qkxIuWY6Kb1tduiDwEGAeC6Zrjg htWNevCEtpMAPey3RjCPZo rNR6CL1YkGLyWGRzE81ciN9lIE9 1KXvhQ81ry7NyRGZbV71dvB2dfe EwUUD0R9XvHHMfV9SqyrEz ND4+J6EolZQbel6DuMS7JEQrK73 iRO7ZMKipfCUzOMVuE7tslqk4nD R5AMQbB6GitHfgQH4QtVEd JO8RiMDzP5tHLgutX0OuR9audFx gMTAwNT4+h5MoRXJkZYl8Ee9roZ 4uUXQI5JGWcLqhACBXiFAk sSUBa9ey6OzDrYz0INn4cFd1iWx iNzi1APfYtBevO2tcVvLGP1/B1Q iEKMTADMyn9/Cg838qNuJu /n9J7V8oehE0ZXQnKlW0OLJ/UTt BaTovEj8BJnMtN1DvdKDnrTuixm MVzTk0a2ZAcRmlyBE7c0Ma u9SYHKm72ZTwH35mhVurQabeBoV jY+3Rrc/OHn+PtRbuiv3GLCHw1r 9ka3j7jZR02s/c4PbQ7f83 649KshTw9+9/xwkpRTVpS5o0a65 a8fk/oW8rrv9buzLNjDCGTSmuAW h8rs6kUHPH55491hFIzfd6 iQNZ4t5jw/c882HDuIHyBZsC7KV F2jPJaTBPzupo1C8IeS9cNNpXxX jvJo3ZtzxwZqKUJYqECzIR CmiptzW4CPR9eZYuJEIwxBu3QkM uxrzCQwEvFpfBP6Dlwqjfca9Gqt x3HR8gq43ggMAseg6iOtC8 e+3hyZvTvmeBochY+1qu6h4gvc6 m0/cN7eJIqmpsJ0/N0X8bAq0FKh JMzedxt6eFsyLt5Ga54vAv MAyJa5+c/0uq7b9YQOso7m73BF5 M76+88Oz+v412pGRqUJxbA/q0iz 0fyUMrSWtfOX/P8is5LKvL cDJPjltizmD8UAM7lTViKUQflSk 4AzRnakaSAwOwHelHZ6MxdlxR8U FD8eGXsVXEhimp1P5BwS4h OSlBtIdoVb7KxdqoHhIJHKkNNgV OVagdqkhc++5+oQw9uTLvaQda8S 34XJ888fuEYZu6am7hkEcS O363KoH0hu+3HWKHVlLXfhyv+h4 JrcNk2osu8Tu7/TqOhRY5BqRhqh 2711k20vGE/feaLXEsDETe 1ad4npxe8aY++uL9y6/++OHXBgs KAGRlymntoh3bu0bMM99m1XRjaE JTsSZ5Qh6vK5914A/u7X34 zXuXX/35+63/uSCpoYPrSRvi46S txroacT1mYmwAL+Qll2vwlIgj0w 301MxRFNi1gjokSht9rsy4 LeFUYzGUsnA3QSc+0/fKYJl5f17 ab+X0orogilq4c238HeiX/mdX1z W0ecGXMBtOECX/l5bC3RCa j5xeXadMb0etgdcdUG/t//LZEse 6ugbepdqBpeSt/v9Vy8lhfQR0gF 6begO17RNlY7Dj3T78Ce/2 Ox/JQzOJaz/9vOm7sAw7lKh6NzM qhyr+IyJFbLNJHyAxCPG3hkPsiG 1lbmRvYmoNMzEgMCBvYmoN MRijIqi8v3VodqWieGSnrkWdrPW 4Z6NytO2dL9WwW8KjPNN7sBUvCf wHP9IhS45pRKWgph8aZGxe Rke5s9UiafGteRHjouHcmWH6B8J vyN1bkaUgX6QdkNIsniGqMGPoYJ 2XesRpcWA4o3OlZET+Pi9G xRs3EYYuJcaytQNGGPRoAWSzQFD hC3y1UTYpXJ4AXE8juAqpRTK9J1 FJKYGeEGTlAAAdCd3VlQF0 vUXpZ0uzVIebJ6G8qDZhRR7wyuV kzA8KfNH4hXSwXDS0Ql2nyWYwUA 8JEodM7mD6zaQLBBkoUHmb EgHOAHM9M+aCRxjtTYpJjlNkZ8k ipCA/QlOAlMkQUaeIJfteffbztB sevcyfoSa7NWTSmLx7BxNF KIaBnoCAUD3yWkJVaAK5GPXp6mS IZNVCesATDF6uBdFTbPV2LSPb1r EAAJBHx8/uuj4wt2ktkjLA lQetI1jAh1VqtxOA6JDCwpeQAHT cQp7NJNQnaESLdPUsODIvv09UTK Q4Ix6WCHSkyPFApACsKTJw p01ZBCF2Gr1GDONmySCBcIMfRCY fu73NLIG3Tv8YVKNvyINYsRPtLZ Suc26VJCN0Ld6NNNUfqNXH sQVzDMMed75JOMC9Mc5TUUDloKV QvMBhFKJqz66OJZP2Ut4VUCHkvC KNcJBcKIIqi81WSTT4Ti5Y WQXqjCLNzMIuYARvl83SBGF0Eh5 AAPLo+Ki0MF0jS+kefM2X3EoMRS fdSkSFyCC55U6033Gm4UZP lsnWCSNsDc0LWDVpkAZDhBHjGVB nw97XBUY3Rz6HGEBspTTZuTZiEC Lbj82NKQW2Ta5WEPJotGIS iSFjZCVjy43IWWB9Rx4IHIWgvHG CtGTeZQNev44GNBH1Fp7ECJKrgJ UYjOYlJYObn80VIKJ9Oh5Q WMQmeGRWnEOtYACir91OVIW4La3 QZWFrgGHQkXUrXMOof54KIED3Qd 9QAKCilIYDzUKcMERtb19X XKD1Ko6SHREr+Lk7Ho+tT+jndDr K6SnAKGemG7csblv8Vf0NZdQvQk LHbI4QfM5TQ84cf2+erq/3 J04chpsUz75+Q8P0ghRxIjfbTYY bFELu65Rtr5vtC/UMBb9MRGdbIv k9fVh0ht0o3U7FMwr9L2/+ /5XTjq21tHKGhN8qdL2CvJ12TER 3gvAFBkOsxjZRIW7aFH0APCz5BI OI7FKcFBRAO8uBTURbTW2Y AHl0/CbjQlqCHmqovhu2Jml85hd n+6/fx7+Xl74q5c816T07oHt/oC pjnn8pqEUujvbnegVnCn1E qT0yJCUFwPydIZAIr5xGi0utm5h 9Qm+3iO+1uqVARUON8KfCPCar7g EAII+MPiEEKNzkFDJa9ZhS YCeo0pAIAG+OBwCAPDoeAADy/AM vx6x2TYqxieQsjJTaJO4ZZG1oo6 LhCARgHBKmb0QkULh3F6Sz hHYNXABOs49dv88bgjKoWJ5Zw1v mwtWcJZBzN2TscnvqQBrrDBriST Ewa2ZcWKSyvLZ1DH6PtCLj PVLiX91ckA2gXC73UQyyU09il2M sTRQlV86qwA2akaVdLTW1Y0GfSJ EqE2MiiaGhCP3+D3PbxROl wr4CiGL0WIGyV65zJL0OJYzzdDT oYvWhDLMvM3UwJPx4A4U2EdG6vK LfVZ6rQ3ZlOZweZE9TL3Pi SVC5C4vmRVDrKUCaGNJ+ZhY7rsX ruE4JfEGr6bSWYYOImIWR+bfMXM JFZWTlzs4TphoGAS8pV1L8 TJlyEhOkpij1Q8LjyoZwPOA0zUT 2ESzmRaaDQB5UAunUvkcoya2V9C baqAxLrS9zWfVIBSHSNxUz NAD1nxNueQ7uuwZuEalJZmPmFOK cZyuRAGazSew5g8FatdVlhBNjbh BbuUV7Z0IpiD7gP9FdV9Oo MXC1qJNiQasQC8LrY44wJEKeon3 zSCpyThm9a3YqaqXnnIClgsMppS J8I1DzjI3nbdWfY8VhwADx zfTvQHVsNO0IbwOzbPX3t8MyRSO +Xu1JyTn7BEKnKkjqvHFNEPUoHM RnXOAlJ5v8GNUeQ6dztqc9 hJBtDRD8K4MRLTLiKIKtZWNlRm1 OmJW8lDVqK3xrCQbkV9B0xPKrLI 7lgvNbqK5MiLR9jOQxMTB0 Sm2rvDDoRS9VQdkG0N91NpyNJBz lbEU6v0RThTTv1ZxgPWZUAOcgCP 02GsvbbGVsaIiVjeXGbbAx UUMQTfGxQVX0FaChhzlSYOy+T+Y la9cAhOcTPtFXqrAy6ID3om6m53 wJ0RQq9+Pj8/NTEUIIIYQQ Qvxh6Y/C4XMWGZYLWedeY2MdwlQ QKYHPNNCLmjDSD7JHRupycI+o4w jwoQFSSHSU7sckOgevS+M1 uXk7Zw0j/VyJO7PQnw2Bo2P+fl6 h5KcAbnKnOWdKzWTQPEYL38mtxr p6DC0e06/9K0Fm1eCnE6RM 2mZUZBpgVZydnaGRy+WwGFwPh/g FtAov7hhoMl4JXxxqs9i7rCl6Be Tp8p9CDyzqcik4uK0xX1x9 xNknVzdu9pkiNb3E/NPT0/r6Onz y6gKzdWVSbBVDyV+n02jH+Vvk83 jQCQWsPWPkLjGOlA1Mnhu8 +mE65PKkym3gG26amFMRSUZqa7A KqLKXAaKTirkkGBU5jlSOZIaWBL TZ+/q4MQ0ZhOSt0P1pEzV0 vKPLOXf4Nchui1b5Nm9gnZATn6b 31WoV/WPDA92Nzu9wkC8B6CRBau g/Wml623UW/l/PYd6xp3Jb sIYleQyTcXx8/Gl3tAjlRDY7n0k sjhr3pr7FHQPuw5jzXzaKBk6cV+ YNht1qxMvVyBJch3z73WTQ xYG1XCiveCMIiUrMcehnhEUF0tf MwhQ9Th6QIwmYycG1NysS0JSLn5 ThTMyaL23qfqlGp9+trd3f 88hcITjEE5fDIsD5xABxOU3YMgo GxCCzCmWP7Aer6DYyIbuC12IszF mvIoozdpbzTPoirkTMglAo FBDpSfv6+mt67JNC2BvwG7S1hR9 ck0KhpbZ1RJTpaNSxGUvzvNnpUR 6FbpkylzF1HrSH6NwTb8Ab 1cRHqXIMWqgAGYYSExQ12/DwYHr Q3tnZ+ecb8/t0Qq5EiSvrHEKRdy IufvZgXiw2D4hNPGKI/q6G QebWJAAPZuvGJodQw3YB29cSTtl UhEppT8n5GYaxzIzVN/1xADBVw8 fcyQnb4awSF7cUrQuBEfpz EiYHUrZt0Yh2TkA4JWCvwTeCRUx bu0c2iWtkbVf6RvtKNUvpzLFgSy 2gPrPlYp7VmcYBCPi5Tldy x/7veVqX/Z7eJvyBMBoU0hHRIG/ O1KF65XsNG8jldWBin/T7xI7jVd g2AzHz9dVgl1yEVVudowso i3P5Kk3ZpPL3CiLGV4QkmXAzf8t nW2YrrRl0Pg4ZqWa9WE5ysZB5mf BNvqtR+xtLbDW1vlsfo6tp Zalioh4zNSNnozFG1M0FFbKhy1+ vrkdB/GZvbw/+D2RRzJJoGYB42f H0eqtEo1gFteRxikBYS9p3 hprfHxmJEWwYBGnVajUIAgRjEpu XtQEjKUwTDf7xdIvLrDMFuUjJL7 MvF0JAaPt7INC4SkclRtk/ 8K9G3qinnMUtTEfVzauAfNY7dlx TMU/PC2ZEsf2t8hzT7SzSCjw5tT lNoZsmcjc8QXNsNrX2V0rY /iXRedOdlN53Ib9S2qUXEjyJaNV a1l50XfQj3rOMnaeRro2bGqUIwZ TwQABO5FXZ8xI/y447R4Wn NAnC9fh6XowvKXJ8bI/WubgdE8i UnF3GKzSNGRk5D4PIgAMxzIKpsy ilqQRMU5M1fPe//BTOmWOR cxBift8ihpfWGko+AzCdgUbaLLy PMZty5w1vv/NM+gK6m3BEsND64B o8hBCH/OSylW+BbtYTb2ha oCiATPd94uKcf/v6lVpJmASFDy1 E/nPRyYXOBWH6zBf+X5h10M85P5 c0TJUu50XWW/oEfimVsaMl +0/60HBT943RZGVXQcGnnzWfgRq gUWut9knfdZRJGGBpKM9QQGJPMC AKo8BFT8OOYUSC7l//ASWn CiTZGrGlNJQ8viCsbM8xxtAsOso CXSYtFJ1ffc00FT5Kh914AP36ep KxNJDmNd7Gxh3rQc02ZmSk ZWB8YFOrFOvdBDg4HiV9SD5VPST tIAZokClrGMOkUBKtTjp2VSW5GD 2sNE6nJWNrRG80MSO1XNHt Sh0VKDTvuCFnHLNjZzWuFBNHR9D giEZ3JWTiY0T8mRRdHWYfPO5+DW IeGE9lec5nWGOey4XmQEv6 A9AqnVEoww4WhAV9MUElT44aZE1 INJ7muPzoSvHuWl7hjDJnLZ6TDq xJhT2UNoNxYGap+RXvUQ/O Fyvpps8F0hIU1hb/rAMqKPc5ZCG q+HWZ0vELU6pvGyWBtd0eLV+TYv TU99ACxtJi3lLFCIIohUCr 3RBT5ftVwAIOAzcPTYnBK1FNuZF GnqQp8ZpGRrpxmHZVNklOlTFqr7 c52R3Op1sQT+k8qMpfuKl5 oEtgSBqin5btERkyiz9Sg437/mF tCpwsoNqniXB2V3+pNOIUis/QRa kE1DLfS1LD08Bx4EaccB1o V8wR0WGzNu25w1dK/kvpUX0mOZZ qWcMrKmwz3zjYZoxBaF96/dK/Zh +TjQoLx0fwamI/tO3sodPL CD8bXj6ZRpHgJUX0ptGfqH5zjnD dSqyVZkDcSO5nlb51WX8Sq089DC 52erT0YVDaDv7Vuk5sPb61 MrBzWRB0IMAvHTtdFTz4EcK1IV9 IGHAtMJRqjGwnKKFxCJOcBav4SC W7IR9wSP8wMIFxJM57VNT9 FKQzQj5ZTMRpfCQxTVRtTgHvDWU VK9TmjFB4UOFhW2D9nTWbFBJkQN 4+NFAcKS4alo47DDTbh7Mv EFp6Q9UidKXwve8DuEI8SMWsT57 zVU9GUA4wbXucHmT4Nc3qfVEbOL 2NUlnYsNHAD1lcSHtr/hV7 bI5feknYCzrBF1VFOEcfnlnLwYf KvUnDajZTn9nDQchGlZh5MFGdeU z0n7gjiSG1yBUng3B2gx8h Aut+RuVAZjnQHH97irQTh3YS93T xNjlvncBmToyAscPfxcaxE1VA8t pliIDuwZQ05wVVWCY9ZEoA ZKAd7Q5xLH5etqbCAazZj9JMMNn KKUACs4U1VMJmFBkXcbVibTGHxx gQTDyLfGD6VmGkoHcxKqCv oQtLloSHlIDSiJU4m3J8aJ6bHXQ 6xwcHwQQDpvoicEQrJIxR9EyNJ/ KAaITgvBmpXhBCwJax8QtV 22NfU6F7S4rgYsDHP1EYY21xMFK uqJZkXvsGCPHaab5td8ACPMuj28 EAH99in0E6rHKZsNmYstj3 clFcDzPUqhr3APC3njmNtp/ro0Q 5mub01CWMV+uEL5D1bzH9JvKpGM Kd4IcseD/+V0viBMfnVy4c lQvBKvcESg+340SDfRHxXGKLWvZ 43jpd2YeKJ5/mCp8RT7jxh7XNyT oOSy1YM0QOhs1H4kAzRUXf CWGuaD9xyrVP2xBKRLDY3hvoolo LkjKQLjzTJ4K68R8iDCgTzu7kEb ZXi/L7HheceFaY21Ud9gFR 800kYlrpSInH7B1SAoocVPpypRj qbDUJC2xrpN+rdEezehf8ud7ZY4 iydUr343nKkhtjV0cyVbSt 9jRTL4bbfWAl1FqOUQDyFTfeNzV xsDEblMOP7ow21pCoG7k8l85DjX 0iPommeUiRn/n2IIq7tWwO UNffWeKxKEmWTEI+5FC9pdEswZ9 kWrc1U43Tp3Crl1tz9F4/BRgAOJ Maim3VEZ3uc8QrDTCyWKGq TU3pqb89CSYdw6GqTSq8L9HekiV haxIlXHObVNIMR6Uhi1YHj3cbRL YfUHo9OZ43XIV3HHHfSiak V19yRAcrKm43BrBnFVR1NDEsWPv sHJi7PpI4EV7ZNNFwupJoDHHbKI BWW5Ecr957osHkklApJUDc CLZyXp25FYThNHKzTVucNS4MYHv cTr7HMN5jr2MwLUEqEZZyGzwUDZ dvOhvbbIEbB4MoSKMsUBPr j1KdP8wsuaw6wKTeFpBpIc1hjEE bDV6TAseU5QvuudrLDpml+RQD7I 3hzK8w5n281T7QsOcBqe3Z BCSRd7WWOFWbNGNpkbdmtonK6rm DXNqozgP3PtGbSULwCY+d2D+/XL kq+3NCe1gKSx8Z2bAh6G/O /1LYczbBQm3FmlkbRlcJHtcD4Le bLGavZq/qs5Vtb9lA8hksZGmI74 n8Zx+kjw0lZokLu4tKTfha m5/Gzl04Ys5kJpoOw/hms8ov6+h 7H61UyngaiRZXfD6RQepCptV/lT r7m9Pakf7wX99XDeWTsZxM Lx1Pcyyd/Geovanna+AHm1bmwbQq3et8 vZU0Kn8dvk5nVmHzoM1lkPdUlHM WK5erM9m+H5rVe0iIsY8iN /ET554RT5we9T7KgtfgZThld6Ya QdomklpC60srwGsjYl+5trFL2e4 CX8z0IKuoHiHqi3TXQBq49 ijHEzwREfjRG3k3EQVKX/0u7OW9 QyfksdRrTHqXBODr0dIVqKd6v/B y32a/mx5KVstgMosKfciz8 0jmWXcy0u6Us4jLAJ3SN0wATIHF 40fp2oX1+ucFCMa5ldCV4DOLSOP QUG8GEfowZnV7zKsurv0pH dt6NQsS1JlCTB3V/pY+lnmC4l6z gf8C4H1Te+w/twY0LLSe9Z+Zwf/ 2eIwGw35clNtr1segrtpwi 57blJlRFRoeMy0l2qAmltB+LL+G 9scXV5c+W0sMexj+331zRVCkfN4 Y6pfmyFEQ4dDiL21myAJh+ v8b/5x/glnkVi5nt08s5//a5xEu 6mYl50l5+d83/jfOXeImXeImX+0 /nEV1vEG9mC7zVbQhCrMb/ SL8gRX2j3p5NbZuKkDyQ+0/iJV7 zBB9uU8aEqDr/2vFy/5p5fRr5T3 2X+0/yTV3he3q96F8ZB/ES /9Uy9y3MeMqO+KcaL/zjdCi7wA/ V+IH3n5x/3/O++cv59z3/3vsh59 RqBlnm6s5M+jK9W74foL9p Nm99yPUc69hhF3z/5Hza+lPd984 STEPHAN/4rkf3rRnAuuo0J8F+7f2Q82 cal5sVaa/psRg1BjvP9w83 n/Z+kZp155ELq42qlv1p/ZDzae+ HnE97P+W15xaf02TmTxpb9s9O+b X3E69pjV6hVn95uVQp80sh T3s/5Hza+vZb405TDI/2yep6gYq Uajx0I1ATkH9Ug/nkz+3uDbaoVW 9e4reuYE+PYaB78ydaD3lz 5nADK2dE50u552az5oxbH0aL1G6 8f9jiupoh8mc7uraqk8q/Ller7E 18XDlC4v/C8f934CU+kwR9 L2wp+hhjzbspNQ09ZtVzDwsKeiw XplBGY+X/kHdh3xFeuAykvsStjN xqHcmtA4OUTtA/MeN5KjHu uEbl+ainrrDRBox7WiA84g87vaS Byh9TCHLeoPgecB4lJ0v9Dzxgox ZNrZx1IMfcaCrUEucbN25G Nlj7/FMmorSKJt85ugXgyiRm625 5oZM+ry295k77h/gr+8dQbWcrZd PTo6XMYA3fwE8cKRWy9w54 mkD17pK/kDdO9jVkAEdZgphynyS shfXW1lyD0n5tnez1jbhkJiw4L3 N0t8jA3P53Yp15lK3AeqVt G+XS/efpahF6b6uch058gatd51k +rym5yf2q42K3CjNyVS4KqX0YOX LpwhD5Pxpl4cXZA6IJ7FL8 t+2roKy/5ZHy7v8oAvT9LJt0s6x 3Q/Uc5ESK8m1oSbGnSqDTKdbPMh TmWPgzDDktYYVTf9vuV7Li NSiFw/l9vYiesEsBnlIFVHcUGdl ZH4vjddQQcz/VCAt1ob0f8X91vI ofLA3+E6T3/adXOvgPkjaD baO0hTGseF/gZuO3T4I+wD07tCi NFfdhDho3dzXbDrrGd8H3KW4Zvx GO58Ca89acLr/cB+n/+8sy +/WO8ob26VypDgXCNJX6BkRFKvz S3zHjEEUqSRnsFs8BqCoE8XQzzT xB6W0H3kLHd2U0A6zP5Vu6 FC1bS41MVf/yg3707Zn69D4UUI0 rC8V311K79Cr4c656e6SFT5a9XX d7d+639cFuIIEHuKbXblIG wlMcpCqs4mQjXhYe3ANztCfutp0 drIKNlm5tOqfFWZt2rQPrV6oD2I 50dACggORLbPVyI7axLVDE u4mLcD/k8AhMUa64qw64TFea/gD h6RnPPxSlGscXV/ICizT790XXv1 0k/gpb0nu5tR8S9r4JZP33 n2rdMXzTBLi/yOa8toGVi+qC3cS r1540wDiDfO+9zh39ZMxx2ivrGa /doKG/G/yeEkuE42VUlNt/ w7hwv/wn82o6k4nb1GLGBQtCHVE jdrh2aKlWbKUluRgQeYOBfDb5ki Xt5a4mGKTnTJdRF1luBNbq OBs0g6YTpKYiMSyO7e3a+OEP/hh Qr2CrfPIU4WiYKUe5v62QL8w6Z6 LkrmiFYDuAXYxFPaNx9t8k HXRi7DEgnKE/3/2sFGERn2/T4X7 nJan5A4gV7OCOkJHJIbXRHn/yaD asEof3ZBka4Wzx4Jo2U2Wk 6d5zZWSmjkQLwJvvExegFCQi5FN rc1tZ6QeNwRfeaaYxhX2ezdgJVZ aoXRLLnrc2A+gGZs+kG9QD Ya4ZKO7zYHUp3RGKiNRKtJo0Ff5 y8x6sYsBhkPl5tPEIHI49X8p/5A z8M2DNTUDJGlfSKk5lEpw4 LOz37M8ZpCd3KKFWzxgAOw0mWNH EIncoBM0dMrTMrxpGIA1mJJKh7F G8Kb7cdR179qfabjSSBY+j G6Q/gv8m2na5xT2x5q3ZNhJKWqy EDWZzAqbVi2s96MVy3cLjR+mmaH S3z3f9CKQ4758Eim3xMn0h UKRHfqZSGFuKKXt2s3NuS9wKXKg 8n6A5TPmGs+BIMJ0OQeGmmUhRYK Co716gYL9wVMV1uqmHV3UI wVk6sken93hEJDdhga1uTA2OaDR cn4Ds5ZJe5TGuw20WEQGoAoD2sC Y8kAHUT31dVtb6Ai5S/q7z 1e9VqgdvpvKnuYAlRM2mNJXnnvy LZFgPEEi6a0Mjr86TXEt6x0T4WJ oUh8XPHPdWXoDmpHwTXKCq 829jUEugKBGE7JL2q07FNznza8N UuonVM+km6Y+ghlp2Vj9sPqIfIt K1yIFJvAWKx36xh7CSiPqE bIpfgGQG2oQrluVwzySf0NUcvAh KnenQDElwWvXxapZUKa3uPSwbHy PEVn1lNS8vyD9PR+vT9cXi feoTybV622wqNqjBuevaQo1ZfXf 7mZUhlXzXPCDPvgmIB8JFIP6Lhb +22dOrRJLWfsedMP7Pz+gN I25eaYE0D2Zv+Sbpj+BvTO7Ue1M WyQyGvDq0c0g10R6Vj8X2SZQI6h KZOgTZCC7iAMH21GMagBKv +H6BlEU4++KwSn8tTCSZtXNMITL QBIBAl8v6cG5ByNPweLsFeIECqE m63LT/W6/acy+9s6pn3v3w Bvha0XIqcHWQPvwRG7O0qrOUd3G mcEqM3iNYZCc6s6mJx/aGyjlBnc i2yDt73aDNlrrnB0HtTLxl j+HeeD1Bm5CCwEnJoOems4ZvaYT IL4TP7sKhDeTafBon2YTB3E4iLh vmXL80olYvrcBtxmWIcUtT TnOlHuGdxNkoqHo3mCi1wGDYYFh H28hUqwcYrxAW6ndpv6wV49bMH5 oOpbZqpJtCj0ZEBWipqYVN jX6uUlPkgCs4ziFTW07yx/WKSDm gujNdgOgr0xW5ian9oKzn9BV3FB QTZ8+jHNwDIuWAMJNykDAR xgUJgXVJsJogKrmBrsy1wWDw2Gj OnUbXaC0L0uIiKtygrIneUVHByT ECVDNOFNm7i9Rab92ZLRqm f3N6BSjQr+DBDUqIDDegzIQbvAZ JtTd5sTHdaMu4sI9zm2pxE+pMuM Us8G1nl8Muud4jehr8MK8W 3MTZ8+XR11RVTxFHdVxcHFRe7AH y1VLhRfmZiyMwBx+dCjd+bZqKCz kk9U8ON26qXYBZBlNCJrlM ASg5ynCxjAyz7IQflKgbrNEgkP9 Dnav5kMc8mVcWPAhG6bK4fBNwhc 1S/q3Nfrs+s5PVYLwZPXhH meGlxYxWnjB4Sdgu/IJgY6Kvez4 qFCFuanKFzpCaEO4d7Pj4LziytW GGM+BEJF4ZF1Vkukvmd6po 843y1FRfpMLiOFWWw1ZRXO92mIv 4BKS70U2IaB68LKGMtmwODoIfEq X5pYlUARaJy3GWH6wCAgus 5Q/x5O4hVNOgeB5IP6OU/hJoGjr mQATHcOt9X+AGZs+MO8WKWrqBOK 9pUVKn2CAIvTOXhBdaGe9d ls8tFeSq8xfDkLi62OjxdMtbH63 y2Ob/fSqiFnCuAQjvN8pRqIit+m 42scfSbzQ5NcOCXaOd8ALu +ADydaOZd9LzbinAow0sYQXNV5l CoaJYgTaI6F8o3dnXrvVLDcVZwL X/Rik3BJv96UkIPPKRCsak pct4vRpc1rDneSMSw3KaMsZWanc msN3wDY0KExVO5nemSS8t67V4W1 aJdkBKmpALkoZzpaKhHcdE p1QujOr4GpPDDk49YRN3ECSKqDy 6J/Wa3ZyjeFJVUysayViTuggh9w Jmb6ry4EBI9DOyHr5eni21 o9HzmtHCnsFkOf1tH2cMldFxwCx XQsZFzAXdTQXIYWnObgN1gDOMx8 cnjakmIcYWdVLk9g7zo6AL t66qVw4OXDGOHe9JDDKoQMOe/oV +CbEgXzjW1+3yBI3qiVzxkidKw/ EgYmjPMcNEp/49YGhhPa/T E3jf2vvkuQma2SHkozu8hRccotI iOkq72jHvV9mnrL0VdtbxMjM/8m g/VurW/5my3t9LcGmtnoxy 466uSpnfUcL89m40mT1Ebhtg8gi r/57s1qO90KiJX+WeVUH/9yXAAH zje8xFJpNnUKD7yoHrwY3h zuFkCilOCjZrPJ4aez75WB8Tz11 5PJ74gfC4CZIuXj4Spt9yLz47Li YmSDR5HJCuJFzzMZi7ScT0 RW1WYBSuZTMajBmyWQNnIXSsFvc 1CIN5MO9cDS9kOLRiJY61STU9EX UxMq3ZQFGneSYwTQLjBdYa EAIBP8LbxYD1WVUzA9S8zUHaBPB nZT4+EGRiWP2nvu16CEXux4LmZH i9W8HbpRFowh1KtQO2FLPd A45aIA0PJK8hmRltUnTnXA0+c3R sWQCsFJsGoieYO9MuqzBI0/wUW5 IPaJpzl2s951ASuEEZUIKu WSGETvUJh5fHfgaix5MnJgB5N8l BEcb0W/dnDcPL99O/1ow2EAL1JC +9oWxkhY4wsvFX6Tu+lf82 5b+NTXWz/Q9xzD/O3l9h30olW/u 5FwQ6OzX6vFzT7wG/I673sxj4EH ahqW5/rZdv8rQ/// x61WzUv4S8G3zV1rnz6/+O6n1Xp tlVo7Wm+hkm432kInWwxX0FXUPf o1Aw1NJLgxFVo++m3ZCjG1 98NYksOhULhozb5XO6/Lz8Xy0+4 6JG02Md4yz/2Ho7wz7C27/vapVD m6I12Hn88FbWxl3reqqm+t 9j+owfhck8Onm5nlwk62O4yx75W sjb14/jcx5inqKrBi9oQShlbSM5 NPk9X+3Tj7kls1+qr8FSZz 5sW/kWrUJ2p6vwh6Ne/cb/5X/al Gk2rRTekDd0xwRoylb2SyV9m/df P9eWmmCc8DH7vyFtQi5b25 4RsGwh9x0Hm/5DpsJZ7Tz/Zyd0O mx6sp7cW2M2g56bh2pqp0gdx+XO pcQVTl6l781f+d8DOCfonk 39/zw1N1+/yl+QAbxgdI9sCCfh8 Ts4J5JPShz6W5siIaPzhB4MtaoJ +1dqBYp0Nu39COhkJu483A Joyl+jB4JTBI9Fg3KQPqIeKuBSy VWkl3uS7rhVm4Uk36MJF8hk1w3h iFt+wof1haO+pCK0hNBOE4 qsznyLbrz7uhXb1xGU/4x0KU9b9 qKDXFylw/uIawcy2ee/2YMyhWlv EvK8p3lS3/AVw+qvx+Vd2s DipJ2Bn2AR8Z3YlF0+DzPlwU6Ua O0Viu0nPJm67+R/WlfFT/77+uqp +/68IQf/6+1IMUEGf/egEd 2FKTPJVIWFzfU0DNulc2PJhNMmr qSt/w0l/pj9I96cqzf796R39eHw fF+cl8uPNL1+k7XkjRZp2J wbz2qO8v7Kbml5/zP8Xb3719gh6 CjpehPXhy/1te0qWNUZnHQUUiDo PCREnawqUs26vSHlx6NUz8 fv0DVwE3VCodBd3mwlh/P60+Vym ElmntI4vdN33xN1ulRokeXLuiu7 eJz00a9TcAris2cKhRCtvT rL3KptfWianvEgkkp4DcKNARFc2 AOVngkrW9bo1pG0bZNGUjD4iOBB 1d37el+tV2GE3K25rQ09Af +q+4oU45fPst5U/q6gHJozg8u2K ecefWFfpao3HZVpo0TPegind+0D urbUnovE14zKUMc0dME11A Ako9dR8t7Qs+bruOpg15sL2igcp g1STK9ZSApFlkLLgYDggc7ueCfo MhWidFRuW4FXdlkn9zD1zw +95o6Oa1e3tdnLCrxd8R9cTPb99 dQQapcHpArjtxFSZBFOZk9Pz9DU kgbLZXC4aP7d2uAtRo1+Hk 5BuZHuMboz+AnhV6yS/zNew1h6F x9eudiM1/fAP4v69Qnq4czELIjO Evu6aLt7uhXS97z500HDO6 0rjdZbiz6A3yPk66qVHFNtWDMjy 5VI8Z/XHnWWQoqzUCzrt4i/7yuP d7e839SXqv39I6y3/r5ZMT aITJLJBOTTjyJF4ITdu71tj1nMZ 3AIKOKh/EZvFmkYnODzFWi7FNg4 uJ3wYgUuGO/UqqI9kTlCQ0 5FZvJwCHG2TcqDYZR3QXbDTPeHM FdMCM26FKW+nhEpHzd0iU4Q6hLy Zm++BMDsKnYgiqYXex4QXe k7gSXa3W2+atNaMYVt99tHtY3DD S6TKQpeGnPSQ0VZLMgwASk2rObo 8rH5CY6erfbSiixUL8qiaT bZC1mqV7SZ0L6CP4VAdPDGbZd2S R0FHh/V5OBOIv4u9GDswTDG4cGF a8Sl6z6NYd+ydjEHRyezTj 3adyCh9axRLVhbOKFSkpkO432m+ nlzMLTNni1KbAe9HMbuTFnuztlm 1am2Wc7sHOAf7COVylwDBG qaOgo+vpQ9UPdIx9RVVWvg4hkGP t4WwlcPSSqPTOUXLr8QQRNkNMLS A9uGHg0UwKnlFCjefjZHCd vuGZtYd4lsRR+3S5pSOIIzsSORu a3Of928mtiaWJRPvUOjBoVsM0Gu WBTuSV0nWBV4MBP1IiNrh7 qYxWLJar04gwu9SpBIhiFlRLOn3 t06icRihjG1vXKMfqw4ZynU5SBE sDJ+LuUGf3CmjHIaN3oQ4S Hlt2leMZsRoxImNO08QRQUcp/JG 0DX3k+k3TXWvqKVCddERs01NIQ5 vbrm1yUHeJ2vRVbDm+f9zc ze85y1xl4o6pwjYNg62Z8jndcsx AFhZBerfC6KTeZ8YV+WYvESffyC 4gjIPPWwpzmK1BUgHat21e dOArtov5Gv7TI2G/Oe6X8gxk5C1 4+DeIVr3gcpq7nZZ1rx1dO3Uw+x utICWs2RyqWjZr5EwKc75i OvBtp8e25+E0eEVEhUpGQafWvVp 2dAazryW6obvya/ZITfl14QQMRS mNFMCCVreNb5PI8UUz0EZu vgMQdFT5/jv8WX62bm5mh7GpfcW kNk2x+CrV9rEvAhTN/Uzsy5rJpI Jfegg2BPdGgae3HObCMcXB 8eCtsrvKTysH6lZr/VBLAcu8RkZ D5I/5Ix8X7NYKFQCLDe/oYJNL2+ cW4pWuDi3a0RGCSgLgClMT RBSyXu8OTqKYJWPAIf2MYLXK+bB jmoQQ0JFHNjDvEX9/lkZ8f0xe2G OHMy04pMBPf7WrjkXKJOBZ VOqPZuFd6GAdotMI1ULFf5Ce7ko HQo7RfeyZV+ZPA1kZ68cZVBcAyL WcVFyQC9eyt5oA52KBDxRG KYiFBretRpC1aaQjbGmZQZ07K/S KOh4AZstCCXMtIbnQt08iNTl3VM Q1Je7D3LZ4ULaZN0JFEzFP xs2B3aLRTd9BIjAZzc1uWITvT4d LgGOV2hxW6Rl3LUwzaY5AIrSoFs BkIFiM0JXqo2bPIAr8WFaG ZseVNAkqQMKK5EnTlcBoPHB6pNP x+DVzcpXbsPAYFQ3monbW6yg7wQ 6YyrEurg0MgVIRPGysOk6x SmJ9RYjUuEsFfMHWdcWoYLYxTs+ IH3Rk+xjoGAMfHlf/WTwtqw+LZy hulJVh2iHR5FTctU9+jSjr bR7cd3IatTh44LJDErbVf4KIyfR 8AXplVORWv06yHYukQXss43xfV+ lgHjh55sDciVS7GXJJNxSe w+jc13hkpBtMwycNJ/AstF9tJ6L V9GDR32Wozlsv1BMmIPeXHsdNts 7qJPHtI9zFfWTNvj9LVmUD jNc98TawGhbSGSydaOpTk7ayTnk w7XkfRHXfeEZC1iTAPCZUC65HKN WUdcwpFN+JUJ1zIzj7ieoU OGWsQ+el28sOmWBi0ve0Sk5Fgz5 dq8Fqjv4zQwFXU+mYQFo5Fhwg4d lzjMHzI3eIZFuwXMGxn4hK Yxhb4aHyMDvcHHFgGKQmQxWS+1w 2GVLDOpEZWWvW2Hy582re7pDYML sWQ3oYSU9BRq1voZ25mXmQ jj0DN+egEOZqZ1Ss9HU2GJMeHIW un1JenPJ443ZXJ5+Pww8LQ3YIIT QdI+aILT60LjtDWpXlSnmC OjZ0J+uTiDAlL1YVEWK/Atv1aZg zVllyDOUb77IQZjBe7rbaSgm3WP ky9VhQ2eJaIGHKSUCCAOuu ELBTSIPm2ZlaLCFbgG198gIr5JB dTmwHk62kEZuW1g2TGmA8FuoCos hqNFWM6PgkLNQPlVWPMhEf 9Gv8PoUpQiAXou6upZYRn7WE0Is 6aJhs4W5O1np5DvKAOYYb9RlXR+ aQl3f9vIzse4tnwPQjRg6M EgESVJlfbF61kAyIeosXN+jIHYC ki1uXzNTJBgxDww81by4zeYAijt 5EE1NK7m4LTqzkBA7aBhct bMRBZojpSF3KCrp7nkgJmewaVR2 Utqd98fT9NBu9+BvTpshHJ2wsbT JPQUUpkr0lvFBRIk6eG9eL kD05mQJEQUlJwJnARCXUbV87BKw OYBMRteAaRpSDD1Nc3YW3BLTVRc wIel1AXN22Ob7Oxo6pyeVk ra3EPuMLZ+kYANq2KhnLBm0yZT4 7sNVGtm6MXDT+E9DvfCPDim7m7H GD8pfCMPrMDXK11JKzvIKP qVcR5SFg1nwWGJTZe24vQMngqFe g6KghP+jFZxx02hgwuKS9DTTCZs OgQ+gs5RckPRGr69R1S3Dp 2qhS6TE2JcTP7RPhZ48ZLnanjWO ZZykHd1mRgw9sdbGTLmoFk9AgKG 4pqNrBgk21hr10d+r9ZRwR xBQ3tKBW4af12IJbXYicIetnuH3 ATXpkfYCODBA7f3wbeTO1VA7LA/ ODIk2VnzyhV0SBzSIqA+4v X+SQ/3KCDU+MrX2xd4NmpngyHeQ /P9iOKgUrjVFWjfnOOY1Oe1CBU3 b1isZcgArpIxSTclY63/TS GsBAASPEKOr6tRrTZi7YA0foNiL dfSzR9gt8Jh9OIxmGykGMHLhylm rNAbSGyzy8jjTf8INkK5Qg RnUhiCFtkGHM/eWLzH/4GtDV5Qb PXKoNMzXLT76ko1mdfL0l+3+R2X tBWIulgiGqFwMNd/I6MQjr vodRGWGxsA3JZopZCaoyUgjrJfS Q/pefj8NWmJ/JYqCuds7IBnM+kM Er4SnVsXfiCOWtHEd/JysF KECbuWOurDyoDYFADq7qKmFTPlG SC/BAHcJPbjIFYqyPS6UESENByJ RKcAFAnkdYy8yHJM5E0p1c KaYn3imTBQKC1vcRiae9qJkrbAP POWVIyDsPPSmapuDekZTkRS5VWV 7vf5ImYZfzPHGkIbvQEWun U89bjZImdZLgPDOaVJAWN3Cls7Y Qw9ijEREfMBp1TE61WHA7RQTyJu mmL22wNMomTj53OrXjDGV4 VRHcKYxoLRq9OhR3CN1KHLZtojD dYPCvCYAHM7Dgz657ofEcwqUyQK IfBWGsNl53OYKiBCQcJCkr RT8BSBffTj0GVC3ys6WuVKWeKAQ mk6EbFLp4D0ZrlRXtzl0FlTY0UL CbK28iPD0YNS8joCecZoM8 MT4+a6ItVNSrOSgTmsnVX7/bOBq G7/AuUVnRq2hh0atW6w0XFerSVl 6DpJKd9Ciy9NZnVmPZyuyJ /vcvIGPoJsz1RZFsG8nGKqoC7/I nVz08Awh8wP8LAG/AufyVZeBB/U /+IEBBcDJl4ePi7Mei6wWW BVtbcHKWeCZWfCXjqT8LGmt7N9f rEEDXlW89lWDu4l+A8A8n1V3AKG U6K8vmkYA8HR88lK+Px+Cs XFRvwe2/K12rvvOb50YzC1B9tw2 g9N1DSfAYu3CuyfBUC5vVVBVNkl ZMYd1BICVafHc+0HiUFxBn POeEm1Fe+RbB3nSRDiyUMSoVOTG BJ8vAOwqrTMxyp3VemfazWLPLwy yprd8X2DdpR0nkdk6XihxO izgoVqBkLGfhRKSTa91eQTIqF24 XTXCCQhZ+depW0OBojqWc9htF/e Yb+Uooa6XBmK0yEIu6vh7V 6Y6Ms/rHspmUw+Yqb7PlIyQecZ6 uCxAVQT1Dl0boUaetJUNxkvM9Rr viXhDm8XfImAwy6mPAdY9l Uhj4pHwCATH6/BP5EmEsyYv49iy 5F05O2Rx2UAg75FZcYnrfSWRahA whX2u56strvA8Wlz3GP6R8 Cg63ST7sqY5JPZHbMGj5vQSr2Sd oHgzOLHCjOCSU2KRnU7CUUwJqEZ Z8XHoEnPb6u39dfc9McfS6 PW69mneEpDNnCqVy1Bc8b7jHy3I vUL0hDIOLXRXb8MKtegzBx3oRDz 7XujY9jDdFpTaIwrgRcDsg TwArmhDiASWwf9LJNF2a0LLf7Ur XnQzLuFCaQ6Bra9oV1/JxTiIiqG PXmJYCbRXbfzPj6N4OLF/D Ih8k6xAZ4d6w4TzBEighjgRhSPZ ScmoQDNb+UeC+g1zf3V4Muh8Tmn HT5pfACST+uvo9+fgCGPnY JRbWfM2I5JzCk87pR32by4kj1iI s/hTL4Sw1bG9TTlomrq6OBdHdpx odp/Lh23v+8xon0boDU4Rb m5zjTXaPgCKLyfCqet7thrMa4Nk 9PmSnGjkxXxeUqPb9syWe5Avtzr fmnoqU2ktZB5ozSlGz398N Io0OYY9WEt63DDaogQiwtmc18Cv nNp8AprZv9xaJEStKYvkZqcF+UY 9e/ohHu3che81zDonlFQHb vd8+//oA19CeOVaWd6O4Xo+fehz pEaZsN1EDb6s/pc8ighyS3CC7Ia 8Hq7113jVGkc314g/iph5a 6KOqzUQHQPtone3pQanJYFVfKhc Q0TUYhHIvQxus+KU4h3OgzJL95u EiHI+fzpLR7gnyWRFiH2Jf 3o+rReTEYzYjbeJxApHYiUeTEyc u5yaMs9D8mUlBm6bmwiUEi+mJE4 59QdHTDpIIUfR7V9vmQcY1 /E7l7Qt8E1l8wEc1saFU6BXJbrK NWqsd8WaHloGEAOHFzoRANDsHCx eOc2mh7U8x+9kjKvilDT1N jmZ7fLg/ZXinAhvE77LbHJYq6EB F/jAVZwt7SxQ7XHYaJOnzMsaA43 4F7+U/zitjRsTQ0095IQfF MX1WZjXDM1oYr5PmtkZIbuDqPlv 9rQZqRSUVbtUtifOWbIpV7iE8PX Y8KbsfcmcxsIOknV3t1szm jOiR6Py/n//va60QpJ+R73v//Wt 9XuvzWp/X+zds0jmVpaed/we5/r 3r91r/n/n6171pt/3/T69r P/cb51d6FVmB3IXgoLLbVrpR2VZ 6hrYu0ihj0Vc+sghZ0YzzCchWmn 3s9r2omECVpQg34rvhCe59 eDSSA+g8lE+T6TDYOgmRMPBWHAy rYx31DfdN6AjQqGtkiLBKYkaOHI rXFhqAWEAaf7eOxkr9ZaUq hsPzHENGXfin+rj1CbNpoPv8mBj 8k7NT2ByLk1Rx/vpxNnXg+59H6r vYyulwwhLiQcBa6A/vhBeQ t404K9rcjjB7pS1fWfsjz+NfwNV DkNzyWDnoxIxokeTY2AOFSQ4uIm bnzzP0vVrIv1DXzjx5Jvbq dJ5+Q/fc6EBw7xgU3Sv9/7IK5eu m0Px+S0k4acot/ucADVWrRZ6do2 DQwCdEAPDb7YBs056N8Q2/ +BB3Rwm1URTwnz9Y9f9690Xo3ix MyTG39WP6JgQgzQAXl0H4rVGMqY 0tXuWvoVvGRdvgZ1EnoE+/ mrYZU54Re9I5FD73+eb0K/4OJXh Pv+W7p38/2Zx+Rd7hA+/pt+Te6d 7MA8chtOiSgYu7Ksqc7eWQ U0tUQQUPoBhQ/eds/ujgfNb1g55 Y20aGcVSHdZpEMvZRXXRvcVoBdA YAiEzhX5ShJSwKNWgj1rzf 0fyLuKUPICPsNCBVX7WWZkRvwWH hXYOhnXXvEwBtCYqxgkhuDOWd4F N5PlyJk0AtJvoi43JbUhse 85UqEgFNJc4fz0DKnUg0yQn1mCJ Tb5v4gE04yKjDszBk65mY98sCr3 CoDUCBWXWu7BOY1KJYHUR1 RbNrKiRlIHDUtWgQ2ltBedgUYom VJOFAoBqWzFxJS782ntwaQ5dEf9 peByOf8lOf7OUHwFcQEKxP +ufEogsTJCnyYtVmUc5xfWyIKxV 2FVzMRal3rTjfryKMYRYvVsEtwI PJWhYhqDjY5NNHYz4Co5us 8oy6RVeEbKR4CU+j2jQ0YBSnz1H AEeagTtb9b9EFLdxdIhaiSOjJ6t U87YVgfeUNfDoylFf66WPS XHxjYF8giiNsvKyvZHZp6/5rWTW l7HE7LQeMV0A6KZQBiXrV7Gr+ym d/l7y9UmSsCyLRqP6NKpr3 A8nV2rlRAlXIge/kDwfC7yOad0r JfmTU1EDwmj8M2BQOOUtxB7s1qe C9PYEgfRJtlvFHHSAnckId 8r8WrQ7Zl3mdhVsQCTkPnhUezfE nKHyqEyw+7fvDgIwSR94rozDpBx DOzN2B9yuK/Xm1drLpJpKb 9iT4IMfDcLnRh3QId2fNZOzeOCH BBlaxN4nWpWvscECWLraXwg9xNo +ImcHw4eS45Kvauzku+M+v f/8///sf/bpvfT/7cTPdQD0zaOV dsC7vL52W58aNWn47wFtFKcOl/h 3iJC4DxsWwwOCOZaZMzq68 8WjUVPOQGUgtXbpbrPlyoMMiZum Syzbwp/JhLyax2zYWZMw8CV/74W evR8axNrmxT7ewFIo4TfI4 ektz2zh7AMSvVocX/TScjYLxORf kX7A288T5f7G+XrDWEg7/+nE2re XtqVfB8txTUooJWWaJXSGx H+hPLS1sTL/6Z/Lw/YHl2GA4wnE wWLZf821UeSKhEsO19Qk+XKYZbD DhCYuKIWN4EZQPOm7rYVKa 6cLp5fuCqCRImuS7+keV5vkEDel ltlatSXCzratv1CJR1JV07Nn25G +ITH3Uqjm6Lco5HkZzHHc/ 2mZqNLy1xUPnysTC6F5QaNYDpKL 2/XBN35S7J96iHbKv5QtCLPBjWO 5mP9FuqjyMKuBv2azo+n7/ FWAAXi+EVv8IMD9at6IoVKIbBIK rIA0jua4qQTAfTQ4zhy33OQ5NKO 7czXanHzH9CR8GvIL1uOJe W5uOTG4AvCEcF43hcNGxPYIcLx9 wlMKpLH8PBdw/vHLiY2asbXNhZH ferw0o69y/ZyLzLR1eUlWZ CA2uZ1IokWs6pjUUsj8XF6laIpn kIj8+Wbg6SayhdU8acTImsV0pmj T4iA0vKLCkDlZ0toB6vBZ4 FH8aOZk2zB8chVx1PuJgv6EwIEg FZUHVj6ZoMJGfET5sLDW8NCugZv N8IRjjWSldZdVaMw3dNF9m Yg4qUtupNFcwIOGaHPJrEIJlGc1 OUFRjZUOgVvmJURVblR9qvlV8mu HnUTJhoGXqVm3tu0v5Grqk Yr4dHl3mTIc6MdPpIbQsSGDlFx8 ymM06YSafjjRcYo3RDPEfODFlMG JkZjpEZXNjcmlwdGlvbiBy ZKL5UEOkaTZ9JuGQYMYmCXAwLUT nJYWebA2tfkZ6uB3eGUGrgEMdIc 4jkuCzCNBkCgSvC50oS5cr tW2sBgKcNmuuIBPiXUYwVKZgVJW 9mHfodxuiOBW3Bhq0pPU8Db4etm 6fYG4hAW9co69ufZMtSfRw Eo8sNgKaXLIxLBGsTDGdWLsvmQ4 zNyqsmK6VZYGsbHAmDf9fgxYtLF RtZwKpE20uR8afdS3uEuEm rT7oPszjVTRgCHWsAUUwUXM8lRr zptfiXr6xnGZ9jAjkE5J2ynnhl7 HqU0ZnK6UoUA3jbwJoLjXt KN6zIkpzZGOgPFPkBXV2eI6kIjB vEFC5NYFuzPH+FtBiHR3sWA7dWj FiEru9LCokLn1fCNjvAPdk bV9cAlSeDAY5ISQrnLH+CiAgICA sGHQmQUs7xRX7CM3zlNV5WYP8RZ 4yEAD9FSQ4MJJkCBDnDqB8 MbH8LFD7QiQdRM62aMJ7GY7yqFW 9MIA6ED7FFMLiWMXpUWAsGSmqoQ uVNYSgLBY2EMLweHV+MjAx QF0vBX8sUgFrXwt5HHb2XP0gFXg cGWsyaU0wEe3zbYGdABUuZOE4EQ 4KICAgICAgICAgPHBkZjpQ wp0dyTHgnc5gs7TSGxOwRkPzHdk odZJxMsJcf1I2W1DkJthoQJNgMR CmHUG0zF5rCJ52CF0qdL6y yrRCEM64cCaaJxCtJmQpIpctNCp lZEseQJV3BC9lPzC9DEj9GIMpJx W3OOM5ZdqhjB9oQT85UJ7a gP6idfIXQF4KWVGbPAViTMOkDIh bwJ8QZatba4YahnUcYML+dXVpZD kuOjxrLNTcTN54WWXlNET1 NfOkKLKgKl87WbT9J7BrKnB3TSM 7Y6rcqC9FMyauk5TztaUsAOW+Ci DtBUVjIBRoYYraMrqlp4So YXQ+DRAafUxoNTMqx24rbKBnZJ7 gNbevn3BpIIO+CiAgICAgIDwvcm UcUzTpu4PspLC1rL9mYken VNC8D5WuEloDZDJ+XsrckUa2nRU tZXRhPgogICAgICAgICAgICAgIC AgICAgICAgICAgICAgICAg ICAgICAgICAgICAgICAgICAgICA gICAgICAgICAgICAgICAgICAgIC AgICAgICAgICAgICAgICAg ICAgICAgICAgICAgCiAgICAgICA gICAgICAgICAgICAgICAgICAgIC AgICAgICAgICAgICAgICAg ICAgICAgICAgICAgICAgICAgICA gICAgICAgICAgICAgICAgICAgIC AgICAgICAgICAgICAgICAK ICAgICAgICAgICAgICAgICAgICA gICAgICAgICAgICAgICAgICAgIC AgICAgICAgICAgICAgICAg ICAgICAgICAgICAgICAgICAgICA gICAgICAgICAgICAgICAgICAgIC AgIAogICAgICAgICAgICAg ICAgICAgICAgICAgICAgICAgICA gICAgICAgICAgICAgICAgICAgIC AgICAgICAgICAgICAgICAg ICAgICAgICAgICAgICAgICAgICA gICAgICAgICAgCiAgICAgICAgIC AgICAgICAgICAgICAgICAg ICAgICAgICAgICAgICAgICAgICA gICAgICAgICAgICAgICAgICAgIC AgICAgICAgICAgICAgICAg ICAgICAgICAgICAgICAgICAKICA gICAgICAgICAgICAgICAgICAgIC AgICAgICAgICAgICAgICAg ICAgICAgICAgICAgICAgICAgICA gICAgICAgICAgICAgICAgICAgIC AgICAgICAgICAgICAgICAg ICAgIAogICAgICAgICAgICAgICA gICAgICAgICAgICAgICAgICAgIC AgICAgICAgICAgICAgICAg ICAgICAgICAgICAgICAgICAgICA gICAgICAgICAgICAgICAgICAgIC AgICAgICAgCiAgICAgICAg ICAgICAgICAgICAgICAgICAgICA gICAgICAgICAgICAgICAgICAgIC AgICAgICAgICAgICAgICAg ICAgICAgICAgICAgICAgICAgICA gICAgICAgICAgICAgICAKICAgIC AgICAgICAgICAgICAgICAg ICAgICAgICAgICAgICAgICAgICA gICAgICAgICAgICAgICAgICAgIC AgICAgICAgICAgICAgICAg ICAgICAgICAgICAgICAgICAgICA gIAogICAgICAgICAgICAgICAgIC AgICAgICAgICAgICAgICAg ICAgICAgICAgICAgICAgICAgICA gICAgICAgICAgICAgICAgICAgIC AgICAgICAgICAgICAgICAg ICAgICAgICAgCiAgICAgICAgICA gICAgICAgICAgICAgICAgICAgIC AgICAgICAgICAgICAgICAg ICAgICAgICAgICAgICAgICAgICA gICAgICAgICAgICAgICAgICAgIC AgICAgICAgICAgICAKICAg ICAgICAgICAgICAgICAgICAgICA gICAgICAgICAgICAgICAgICAgIC AgICAgICAgICAgICAgICAg ICAgICAgICAgICAgICAgICAgICA gICAgICAgICAgICAgICAgICAgIA ogICAgICAgICAgICAgICAg ICAgICAgICAgICAgICAgICAgICA gICAgICAgICAgICAgICAgICAgIC AgICAgICAgICAgICAgICAg ICAgICAgICAgICAgICAgICAgICA gICAgICAgCiAgICAgICAgICAgIC AgICAgICAgICAgICAgICAg ICAgICAgICAgICAgICAgICAgICA gICAgICAgICAgICAgICAgICAgIC AgICAgICAgICAgICAgICAg ICAgICAgICAgICAgICAKICAgICA gICAgICAgICAgICAgICAgICAgIC AgICAgICAgICAgICAgICAg ICAgICAgICAgICAgICAgICAgICA gICAgICAgICAgICAgICAgICAgIC AgICAgICAgICAgICAgICAg IAogICAgICAgICAgICAgICAgICA gICAgICAgICAgICAgICAgICAgIC AgICAgICAgICAgICAgICAg ICAgICAgICAgICAgICAgICAgICA gICAgICAgICAgICAgICAgICAgIC AgICAgCiAgICAgICAgICAg ICAgICAgICAgICAgICAgICAgICA gICAgICAgICAgICAgICAgICAgIC AgICAgICAgICAgICAgICAg ICAgICAgICAgICAgICAgICAgICA gICAgICAgICAgICAKICAgICAgIC AgICAgICAgICAgICAgICAg ICAgICAgICAgICAgICAgICAgICA gICAgICAgICAgICAgICAgICAgIC AgICAgICAgICAgICAgICAg ICAgICAgICAgICAgICAgICAgIAo gICAgICAgICAgICAgICAgICAgIC AgICAgICAgICAgICAgICAg ICAgICAgICAgICAgICAgICAgICA gICAgICAgICAgICAgICAgICAgIC AgICAgICAgICAgICAgICAg ICAgICAgCiAgICAgICAgICAgICA gICAgICAgICAgICAgICAgICAgIC AgICAgICAgICAgICAgICAg ICAgICAgICAgICAgICAgICAgICA gICAgICAgICAgICAgICAgICAgIC AgICAgICAgICAKICAgICAg ICAgICAgICAgICAgICAgICAgICA gCjw/zFZyU6ksnIJffcI5UyolTb 6PZqBeQZK7xhMrpS3bsiJk YmoNMTIgMCBvYmoNPDwvRmlsdGV gL4NjALGwMYGrs7JpO8QtdgS6OR BjWDStX0ZzJRYaH78lYA5I pVVpW30fizP2kQ9+j0PwYCQlQZa u4aZ1GAMAwOQMu73mlRbWUCI3ah rvcac4KYfEQAzZLZPnoArk swTdJQKBT6OkUGA/VNH8chcLWjV FRWgYBAaZHlYbJTB4xaOtaF3aaa RvYmoNMTMgMCBvYmoNPDwv CixtqEMzY6SiXLJuHGPvj6PyU4S lruK2MMPiGPKpV8AvHSw5X09fJO 8UlEJcN79gtnE1oB4+c3Ry SUPqKNdn8yK4FcUQsXRTiw3PGEt BvU4gCAaG9DDmPcDgpVQzNYGyBG GlKTOYXASPIgTR69F4tD/B kcIRLO7edJt/vOR6nCjktmpTzP3 JEU8Jr9zFno2cvRI81Za+DQplbm PivQWlIZ6CHG7bx9PqRBF4 AGHxy7UfMRs9V5NoR33pADIens3 wSGsjR52qcN3twhZgG0CfDZCgK6 RvciAxMj4+E4TamZFkyf3G fAL4WRZvD24mFF9XINk3WDJODfS IRqS7KUORNJT1WbHFACFxAOGLBy lFREExNkI+PEMyRjYxNUVD NtJKGSL4CLM3ZlI3MuDTYOG1EuS GG3H9Gf0iUB8szbGiUmVzPCClRY KcD0GeIIDyM6Mwy7ZbQVwu HQNOB6KogoTxWSzeRXypTX9ZUlV pA2oqUSCjQPAsAe9saDLnPL6XHl jeYmJgYGBizPFmYmDoYWJg cdfHlCtdNB1YfIVCPEFf3KSy2PG wDmBLFAcIKvX6UvRSqtZgOXCFUT LUnvngUUcevbLipMCnER6P JA5uz2YmNYB1VXD1yDKuCj4EQAW 5KDrbEUHIQk4W Approved Order:gabapentin (gabapentin 300 mg Cap) 2 cap(s) Oral TID Qty: 180 cap(s) Refills: 0 Substitutions Allowed Route To Pharmacy - [facility]/pharmacy #[id number] Signed by Gerard Allen MD 08/02/18 15:19:00 From: Gerard Allen MD To: Lizzy HARPER; Sent: 08/02/2018 15:20:01 EDT Subject: RE: refill OARRS reviewed. Rx sent. thanks [facility] Coding Summary.on 07-06-2018 Coding Summary. CODING DATE: 019 FINAL [facility] STATUS: Home (Routine DC) PAYOR: Medicaid EA DESCRIPTION 0663 PAIN ADMIT DX: REASON FOR VISIT DX: M54.5 Low back pain FINAL DX: PRINCIPAL: G89.29 Other chronic pain SECONDARY: M79.7 Fibromyalgia M47.816 Spondylosis without myelopathy or radiculopathy, lumbar region Z79.1 jail (current) use of non-steroidal anti-inflammatories (NSAID) PYMT PROC EAPG STAT DESCRIPTION DOCTOR NAME DATE NOTE: The code number assigned matches the documented diagnosis and / or procedure in the patient's chart. However, the narrative phrase printed from the coding software may appear abbreviated, or result in slightly different terminology. Coded By: Rebecca Salinas CphT Date Saved: 07/06/2018 02:14 pm [facility] Consultation Noteon 06-27-19 Consultation Note Patient: DEANA CROFT Age: 47 years Sex: Female : 1970 Associated Diagnoses: None Author: Mili Koroma PA-C Subjective Chief complaint 06/24/2018 11:02 EST Low back pain . Patient is a 47-year-old female with a past medical history significant for fibromyalgia, lumbar spondylosis, and chronic pain. She presents today or one month follow-up. She underwent previous L3 - S1 facet medial branch block but this made her pain worse. She has very sick failed physical therapy. She is on meloxicam as well as gabapentin 300 mg 2 tablets 3 times a day. She has been using the gabapentin this way for proximal in 3 weeks. She states that she has noticed some improvement. She also states that she tried to stop the meloxicam and gone Tylenol but she realized that the meloxicam was helping her more than she realizes. She rates her discomfort a 4?7/10 depending on the activity that she is involved in. It is an aching and stabbing type pain. It affects her ability to walk, twist, bend, and sit comfortably. Health Status Allergies: Nonallergic Reactions (Selected) Severity Not Documented Venofer- Swelling and hives., Allergies (1) Active Reaction Venofer swelling Current medications: (Selected) Prescriptions Prescribed gabapentin 300 mg Cap: 600 mg = 2 cap(s), Oral, TID, # 180 cap(s), Refills(s) 0, Pharmacy: [facility]/pharmacy #[id number] meloxicam 15 mg Tab: 15 mg = 1 tab(s), Oral, Daily, # 30 tab(s), Refills(s) 1, Pharmacy: [facility]/pharmacy #[id number] Documented Medications Documented Misc Medication: Mobic: 15 mg, Oral, Daily, Refills(s) 0 gabapentin: 600 mg, Oral, TID, Pain Management prescribes. 2 tabs TID, Refills(s) 0, Home Medications (5) Active gabapentin 600 mg, Oral, TID gabapentin 300 mg Cap 600 mg = 2 cap(s), Oral, TID meloxicam 15 mg Tab 15 mg = 1 tab(s), Oral, Daily Misc Medication Mobic 15 mg, Oral, Daily Problem list: All Problems Anxiety / SNOMED CT 80217488 / Confirmed Iron deficiency anemia / SNOMED CT 368789818 / Confirmed Venous insufficiency / SNOMED CT 66366947 / Confirmed Vitamin D deficiency / SNOMED CT 70990435 / Confirmed Resolved: Anxiety / SNOMED CT 85398824 Resolved: Chronic venous insufficiency / SNOMED CT 15460453 Resolved: Iron deficiency anemia / SNOMED CT 195771636 Resolved: Low back pain / SNOMED CT 481516705 Resolved: Malabsorption / SNOMED CT 38058871 Resolved: Vitamin D deficiency / SNOMED CT 94487653 Objective Vital Signs 06/24/2018 11:02 EST Peripheral Pulse Rate 60 bpm Respiratory Rate 16 br/min Systolic Blood Pressure 134 mmHg Diastolic Blood Pressure 78 mmHg Mean Arterial Pressure, Cuff 97 mmHg Measurements from flowsheet : Measurements 06/24/2018 11:02 EST Height/Length Estimated 167.64 cm Weight Measured 95.8 kg General: Alert and oriented, No acute distress. Eye: Normal conjunctiva. HENT: Normocephalic, Normal hearing. Cardiovascular: No edema. Musculoskeletal Normal range of motion. Normal strength. Integumentary: Warm, Dry, [place]. Neurologic: Alert, Oriented. Psychiatric: Cooperative, Appropriate mood & affect. Impression and Plan Patient is a 47-year-old female with a past medical history significant for fibromyalgia, lumbar spondylosis, and chronic pain. She has not been using the gabapentin 300 mg 2 tablets 3 times a day for very long. She had a delay in picking up the prescription. She cannot tell me why. I recommended her to try gabapentin at this dosage for a few more weeks before we discussed increasing it any further. She is agreeable to this. She will also continue on meloxicam. Tolerating well. No noticeable side effects. She realized how much this helped when she tried to stop it. At this time, I will follow-up with patient in 3-4 weeks for reevaluation and to discuss increasing the gabapentin versus continuing the current dosage. OARRS is appropriate. Refills were sent to her pharmacy. I was continuously available for direct communication during the patient encounter. I agree with the evaluation, assessment, and plan of care. Normal [facility] Comment on above: Result Comment: Elec tronically Signed By: Tammy LANDIS, Gerard Hernandez.nuha\Date and Time Signed: 06/27/18 09:16 EST Message - [employer] Officeon 0 06-16-2018 Message [employer] Systems Office From: Sonia Jade To: [facility] Pain Clerical Inbox; Sent: 06/16/2018 08:18:06 EST Subject: reschedule office visit Patient called and rescheduled office visit. 06-24-18. Normal [facility] Coding Summary.on 05-30-2018 Coding Summary. CODING DATE: 019 FINAL [facility] STATUS: Home (Routine DC) PAYOR: Medicaid EA DESCRIPTION 0663 PAIN ADMIT DX: REASON FOR VISIT DX: M54.5 Low back pain FINAL DX: PRINCIPAL: G89.29 Other chronic pain SECONDARY: M79.7 Fibromyalgia M48.061 Spinal stenosis, lumbar region without neurogenic claudication Z79.899 Other senior care (current) drug therapy PYMT PROC EA STAT DESCRIPTION DOCTOR NAME DATE NOTE: The code number assigned matches the documented diagnosis and / or procedure in the patient's chart. However, the narrative phrase printed from the coding software may appear abbreviated, or result in slightly different terminology. Coded By: Rebecca Salinas CphT Date Saved: 05/30/2018 01:38 pm Normal [facility] Consultation Noteon 05-23-19 Consultation Note Patient: DEANA CROFT Age: 47 years Sex: Female : 1970 Associated Diagnoses: None Author: Mili Koroma PA-C Subjective Chief complaint 05/19/2018 09:44 EST low back pain . Patient is a 47-year-old female with a past medical history significant for fibromyalgia, lumbar spondylosis, and chronic pain. She presents today after undergoing bilateral L3 - 4, L4 - 5, and a 5 - S1 facet medial branch block. This was done on 04/18/18. This provided her no relief. In fact, she states she was worse for 24 hours. She has previously failed physical therapy. She is on meloxicam. This provides minimal relief. She is also on gabapentin 300 mg 2 tablets twice a day. She states this minimally takes the edge off her pain. She is hoping for more long-term relief. She has centralized lower back pain which she rates a 4/10. She also has separate hip pain and knee pain. This affects her ability to stand, twist, bend, walk, and perform any sort of physical activity for an extended period of time. Health Status Allergies: Nonallergic Reactions (Selected) Severity Not Documented Venofer- Swelling and hives., Allergies (1) Active Reaction Venofer swelling Current medications: (Selected) Prescriptions Prescribed gabapentin 300 mg Cap: 600 mg = 2 cap(s), Oral, BID, X 30 day(s), # 120 cap(s), Refills(s) 0, Pharmacy: [facility]/pharmacy #[id number] gabapentin 300 mg Cap: 600 mg = 2 cap(s), Oral, TID, # 180 cap(s), Refills(s) 0, Pharmacy: [facility]/pharmacy #[id number] meloxicam 15 mg Tab: 15 mg = 1 tab(s), Oral, Daily, X 30 day(s), # 30 tab(s), Refills(s) 2, Pharmacy: [facility]/pharmacy #[id number] Documented Medications Documented Misc Medication: Mobic: 15 mg, Oral, Daily, Refills(s) 0 Vitamin D 50,000 intl units (1.25 mg) oral capsule: See Instructions, 1 cap(s) Oral twice per week, Refills(s) 0 calcium (as citrate)-vitamin D 250 mg-200 intl units oral tablet: 1 tab(s), Oral, BID, Refill(s) 0 gabapentin: 600 mg, Oral, BID, Pain Management prescribes. 2 tabs BID, Refills(s) 0, Home Medications (8) Active calcium (as citrate)-vitamin D 250 mg-200 intl units oral tablet 1 tab(s), Oral, BID gabapentin 600 mg, Oral, BID gabapentin 300 mg Cap 600 mg = 2 cap(s), Oral, BID gabapentin 300 mg Cap 600 mg = 2 cap(s), Oral, TID meloxicam 15 mg Tab 15 mg = 1 tab(s), Oral, Daily Misc Medication Mobic 15 mg, Oral, Daily Vitamin D 50,000 intl units (1.25 mg) oral capsule See Instructions Problem list: All Problems Anxiety / SNOMED CT 52718536 / Confirmed Iron deficiency anemia / SNOMED CT 346543837 / Confirmed Venous insufficiency / SNOMED CT 82293693 / Confirmed Vitamin D deficiency / SNOMED CT 51018039 / Confirmed Resolved: Anxiety / SNOMED CT 79364240 Resolved: Chronic venous insufficiency / SNOMED CT 61779819 Resolved: Iron deficiency anemia / SNOMED CT 651761866 Resolved: Low back pain / SNOMED CT 691239915 Resolved: Malabsorption / SNOMED CT 86450026 Resolved: Vitamin D deficiency / SNOMED CT 94453896 Objective Vital Signs 05/19/2018 09:44 EST Peripheral Pulse Rate 70 bpm Respiratory Rate 16 br/min Systolic Blood Pressure 141 mmHg HI Diastolic Blood Pressure 82 mmHg Mean Arterial Pressure, Cuff 102 mmHg Measurements from flowsheet : Measurements 05/19/2018 09:44 EST Height/Length Measured 167.64 cm Height/Length Estimated 167.64 cm BSA Measured 2.11 m2 Body Mass Index Measured 34.09 kg/m2 Weight Measured 95.8 kg General: Alert and oriented, No acute distress. Eye: Normal conjunctiva. HENT: Normocephalic, Normal hearing. Cardiovascular: No edema. Musculoskeletal Normal range of motion. Normal strength. Integumentary: Warm, Dry, [place]. Injection sites well-healed. Neurologic: Alert, Oriented. Psychiatric: Cooperative, Appropriate mood & affect. Impression and Plan Patient is a 47-year-old female with a past medical history significant for fibromyalgia, lumbar stenosis, and chronic pain. The recent bilateral L3 - 4, L4 - 5, and L5 - S1 facet medial branch block made her pain worse for 24 hours. She had increased pressure in her back. At this time, her lower back pain is a 4/10. It affects her ability to stand, twist, bend, and walk. She is very uncomfortable. She is on gabapentin 300 mg 2 tablets twice a day. I discussed with her increasing this medicine to gabapentin 300 mg 2 tablets 3 times a day. She is agreeable to trialing this. She will follow-up in one month for reevaluation. OARRS is appropriate. The refill was sent to her pharmacy. Call the clinic with questions or concerns. The patient agrees with above noted treatment plan. PHQ2 within normal limits I was continuously available for direct communication during the patient encounter. I agree with the evaluation, assessment, and plan of care. Normal [facility] Comment on above: Result Comment: Elec tronically Signed By: Tammy LANDIS, Gerard Sanches\.br\Date and Time Signed: 05/23/18 11:31 EST Message - General Officeon 1 06-23-2017 Message - General Office From: Lucy RevelesStrawhat Inspector And PackerRadha Dotson To: Mili Koroma PA-C; [facility]; Sent: 04/22/2018 14:03:31 EST Subject: gabapentin refill On hold pending signature Order:gabapentin (gabapentin 300 mg Cap) 2 cap(s) Oral BID Qty: 120 cap(s) Duration: 30 day(s) Refills: 0 Substitutions Allowed Route To Pharmacy - [facility]/pharmacy #[id number] Patient left a message requesting a refill of gabapentin. Patient was last seen on 04/18/2018 and next appt is 05/19/2018. Approved Order:gabapentin (gabapentin 300 mg Cap) 2 cap(s) Oral BID Qty: 120 cap(s) Duration: 30 day(s) Refills: 0 Substitutions Allowed Route To Pharmacy - [facility]/pharmacy #[id number] Signed by Mili Koroma PA-C 04/22/18 15:36:00 From: Mili Koroma PA-C To: Lucy RevelesStrawhat Inspector And PackerRadha Dotson; Sent: 04/22/2018 15:37:18 EST Subject: RE: gabapentin refill OARRS reviewed and refill sent. Thank you From: Lucy RevelesStrawhat Inspector And Packer., Michelle To: [facility]; Sent: 04/22/2018 15:40:22 EST Subject: FW: gabapentin refill From: Lucy RevelesStrawhat Inspector And Packer., Michelle ([facility] In[facility]) To: Lucy RevelesStrawhat Inspector And PackerRadha Dotson; Sent: 04/22/2018 15:58:11 EST Subject: RE: gabapentin refill called patient, left a message to notify that rx sent to the pharmacy Normal [facility] Comment on above: Other Comment: Kat banks Attachment - attachment storage system not supported (04/22/2018) lang Can be viewed in source system Coding Summary.on 04-19-2018 Coding Summary. CODING DATE: 018 FINAL [facility] STATUS: Home (Routine DC) PAYOR: Medicaid EAPG DESCRIPTION 0490 INCIDENTAL TO MEDICAL, SIGNIFICANT PROCEDURE OR THERAPY VISIT 0220 LEVEL II NERVOUS SYSTEM INJECTIONS, STIMULATIONS OR CRANIAL TAP ADMIT DX: REASON FOR VISIT DX: M47.816 Spondylosis without myelopathy or radiculopathy, lumbar region FINAL DX: PRINCIPAL: M47.816 Spondylosis without myelopathy or radiculopathy, lumbar region SECONDARY: M79.7 Fibromyalgia F41.9 Anxiety disorder, unspecified PYMT PROC EAPG STAT DESCRIPTION DOCTOR NAME DATE NOTE: The code number assigned matches the documented diagnosis and / or procedure in the patient's chart. However, the narrative phrase printed from the coding software may appear abbreviated, or result in slightly different terminology. Coded By: Yael Lee Date Saved: 04/19/2018 09:54 am Normal [facility] Main OR Intraoperative Recor don 04-18-2018 Main OR Intraoperative Record IntraOp Document Type FTPM Summary Primary Physician: Gerard Allen MD Finalized Date/Time: 04/18/18 14:00:42 Pt. Name: DEANA CROFT /Sex: 1970 Female Med Rec #: [id number] Physician: Gerard Allen MD Financial #: [id number] Pt. Type: P Room/Bed: / Admit/Disch: 04/18/18 12:32:50 - Institution: Case Times FTPM Entry 1 Patient Times In Room 04/18/18 13:51:00 Out Room 04/18/18 14:02:00 Procedure Times Start 04/18/18 13:54:00 Stop 04/18/18 14:00:00 Anesthesia Times Last Modified By: Cammy Hilliard RN 04/18/18 14:00:36 Case Attendance FTPM Entry 1 Entry 2 Entry 3 Case Attendee Gerard Allen MD, RN, Mandy Kwon RN Role Performed Surgeon - Primary Employee'S Representative - Primary Scrub - Primary Time In 04/18/18 13:51:00 04/18/18 13:51:00 04/18/18 13:51:00 Time Out 04/18/18 14:02:00 04/18/18 14:02:00 04/18/18 14:02:00 Procedure MEDIAL BRANCH MEDIAL BRANCH MEDIAL BRANCH BLOCK(Bilateral) BLOCK(Bilateral) BLOCK(Bilateral) Comments Last Modified By: Babak RN, Cammy Hilliard RN, Cammy Hilliard RN, Cammy Verma 04/18/18 14:00:37 04/18/18 14:00:37 04/18/18 14:00:37 Entry 4 Case Attendee Bethany Edwards Role Performed Recruitment Advertising Manager Time In 04/18/18 13:51:00 Time Out 04/18/18 14:02:00 Procedure MEDIAL BRANCH BLOCK(Bilateral) Comments Last Modified By: Cammy Hilliard RN 04/18/18 14:00:37 Perioperative Protocols FTPM Pre-Care Text: Implements protective measures prior to operative or invasive procedure, confirms identity before the operative or invasive procedure, verifies operative procedure, surgical site, and laterality Entry 1 Procedure(s) MEDIAL BRANCH Patient Identity Birthday, ID Band BLOCK(Bilateral) Verified (select at Check, Patient least 2): Participation Consents / H and P HandP, Surgery/Procedure Operative Site Present Verified Consent Marking Verified Surgical Site Yes Laterality Verified Yes Verified Procedure Verified Yes Correct Patient Yes Position Verified Availability Equipment, Medication, Prep Dry Yes Verified (If X-ray Applicable) PreOp Antibiotic No Time Out Cammy Hilliard RN, Osbaldo Given Participants RN, Tammy Galvan MD, Gerard Sanches Time Out Complete 04/18/18 13:53:00 Outcomes Met? Yes Last Modified By: Cammy Hilliard RN 04/18/18 13:54:52 Post-Care Text: The patient is free from signs and symptoms of injury caused by extraneous objects Allergy Information FTPM Pre-Care Text: Verifies allergies Entry 1 Allergies Reviewed? Yes Outcomes Met? Yes Last Modified By: Cammy Hilliard RN 04/18/18 13:09:06 Post-Care Text: The patient received appropriate medication(s) safely administered during the perioperative period Surgical Procedures FTPM Entry 1 Procedure Description Procedure MEDIAL BRANCH BLOCK Modifiers Bilateral Surgeon Description L3/4, 4/5, 5/S1 FACET MBB Primary Procedure Yes Primary Surgeon Tammy LANDIS, Gerard Sanches Start 04/18/18 13:54:00 Stop 04/18/18 14:00:00 Anesthesia Type None Surgical Service Pain Management Wound Class 1 - Clean Last Modified By: Cammy Hilliard RN 04/18/18 14:00:39 General Case Data FTPM Pre-Care Text: Classifies surgical wound, implements aseptic technique, initiates traffic control Entry 1 Case Information OR Pain Proc Room Case Level Level 2 Wound Class 1 - Clean Specialty Pain Management Preop Diagnosis M47.816 Postop Same As Preop Yes Postop Diagnosis M47.816 Outcomes Met? Yes Last Modified By: Cammy Hilliard RN 04/18/18 13:14:34 Post-Care Text: The patient is free from signs and symptoms of infection Skin Assessment (Pre Procedure) FTPM Pre-Care Text: Implements protective measures to prevent skin/ tissue injury due to thermal or mechanical sources Evaluates for signs and symptoms of physical injury to skin and tissue Entry 1 Skin Integrity Intact, [place], Warm, and Skin Abnormality No Dry Outcomes Met? Yes Last Modified By: Cammy Hilliard RN 04/18/18 13:14:44 Post-Care Text: The patient is free from signs and symptoms of injury caused by extraneous objects Patient Positioning FTPM Pre-Care Text: Identifies physical alterations that require additional precautions for procedure-specific positioning, verifies presence of prosthetics or corrective devices, positions the patient, evaluates the patient for signs and symptoms of injury as a result of positioning Entry 1 Procedure MEDIAL BRANCH Body Position Prone BLOCK(Bilateral) Feet Uncrossed? Yes Left Arm Position Resting at Side Right Arm Position Resting at Side Left Leg Position Extended Right Leg Position Extended Positioning Device Pillow Under Head Large, Safety Strap, Pillow Large Under Knees Press Points Checked Yes By Cammy Hilliard RN Outcomes Met? Yes Last Modified By: Cammy Hilliard RN 04/18/18 13:16:42 Post-Care Text: The patient is free from signs and symptoms of injury related to positioning Transport To OR FT Pre-Care Text: Transports according to individual needs. Evaluates for signs and symptoms of skin and tissue injury as a result of transfer or transport Entry 1 Via Cart By Cammy Hilliard RN Safety Precautions Safety Strap, Side Outcomes Met? Yes Rails Up Last Modified By: Cammy Hilliard RN 04/18/18 13:16:47 Post-Care Text: The patient is free from signs and symptoms of injury related to transfer/transport Skin Prep FTPM Pre-Care Text: Performs skin preparations Entry 1 Procedure MEDIAL BRANCH Prep Area BLOCK INJECTION SITE BLOCK(Bilateral) Prep Agents Chloraprep/Dry Prior to Draping Hair Removal Methods Not Indicated By Mandy Roblero RN Outcomes Met? Yes Last Modified By: Cammy Hilliard RN 04/18/18 13:16:52 Post-Care Text: The patient is free from signs and symptoms of infection Departure From OR FT Pre-Care Text: Transports according to individual needs. Evaluates for signs and symptoms of skin and tissue injury as a result of transfer or transport. Entry 1 Via Cart Safety Precautions Safety Strap, Side Rails Up PostOp Destination PACU Transported By Cammy Hilliard RN Patient Status Stable Report Given Amanda Schneider RN To/Hand Off Communication Skin. Condition Dry, Intact Airway Maintenance Oxygen in Use? No Outcomes Met? Yes Last Modified By: Cammy Hilliard RN 04/18/18 13:17:01 Post-Care Text: The patient is free from signs and symptoms of injury related to transfer/transport Dressing/Packing FTPM Pre-Care Text: Administers care to wound sites Entry 1 Type Dressing Site and Details OPSITE AND 2X2 TO INJECTION SITE Outcomes Met? Yes Last Modified By: Cammy Hilliard RN 04/18/18 13:17:07 Post-Care Text: The patient is free from signs and symptoms of infection Medication Administration FTPM Pre-Care Text: Verifies allergies, administers prescribed medications and solutions, administers prescribed antibiotic therapy and immunizing agents as ordered, evaluates response to medications Administers prescribed medications and solutions Entry 1 Route of Admin Block Expiration Date Yes Verified Ordered By Gerard Allen MD Transcribed/To Cammy Hilliard RN Field By Administered By Gerard Allen MD Outcomes Met? Yes Last Modified By: Cammy Hilliard RN 04/18/18 13:19:38 Post-Care Text: The patient received appropriate medication(s) safely administered during the perioperative period X-Rays and Images FTPM Pre-Care Text: Assess history of previous radiation exposure and implements protective measures Entry 1 X-Ray Type C-Arm Contrast Used? Yes Outcomes Met? Yes Last Modified By: Cammy Hilliard RN 04/18/18 13:19:47 Post-Care Text: The patient is free from signs and symptoms of radiation injury Case Comments Finalized By: Cammy Hilliard RN Document Signatures Signed By: Cammy Hilliard RN 04/18/18 14:00 Normal [facility] Main OR Preoperative Recordo n 04-18-2018 Main OR Preoperative Record Holding Area Document Type FT Summary Primary Physician: Gerard Allen MD Finalized Date/Time: 04/18/18 13:07:58 Pt. Name: LANG DEANA Funez /Sex: 1970 Female Med Rec #: [id number] Physician: Gerard Allen MD Financial #: [id number] Pt. Type: P Room/Bed: / Admit/Disch: 04/18/18 12:32:50 - Institution: Case Times Holding FTPM Pre-Care Text: Verifies consent for planned procedure, identifies individual values and wishes concerning care, includes family members in perioperative teaching Secures patient's records' belongings, and valuables, maintains patient's dignity and privacy, and maintains patient confidentiality Entry 1 In Holding 04/18/18 13:05:00 Outcomes Met? Yes Last Modified By: Kinsey Radford RN 04/18/18 13:05:56 Post-Care Text: The patient participates in decisions affecting his or her perioperative plan of care The patient's right to privacy is maintained Surgery Checklist FTPM Entry 1 Patient Birthday, ID Band Procedure History and Physical, Identification: Check, Patient Verification: Surgical Consent, With Participation Patient NPO after Midnight: n/a Personal Items: Glasses, Jewelry Personal Items glasses and ear rings Complaints of Pain: Yes Comment: Pain Comment: 09/09 lower back Operative Site Yes Marking: Marked By: dr allen Availability Equipment, X-Ray Verified: Does Patient Smoke No Patient states Yes Comment - Adult rafael postop adult Supervision supervision available Case Cancelled in No Holding Area see comments below for reason Last Modified By: Kinsey Radford RN 04/18/18 13:07:53 Finalized By: Kinsey Radford RN Document Signatures Signed By: Kinsey Radford RN 04/18/18 13:07 Normal [facility] Operative Reporton 8 Operative Report Patient: DEANA CROFT Age: 47 years Sex: Female : 1970 Associated Diagnoses: None Author: Gerard Allen MD Procedure Procedure: Lumbar Facet Medial Branch Blocks to the Bilateral L3/4, L4/5, and L5/S1 Facet Joints with Fluoroscopic Guidance Diagnosis: Lumbar Spondylosis without myelopathy Anesthesia: Local The patient was identified in the pre-op area. The procedure, including risks benefits and alternatives was discussed with the patient. The patient agreed to proceed. Informed consent was obtained and the site(s) marked. The patient was brought to the procedure room and placed in the prone position with padding under the abdomen to reduce lumbar lordosis. Time out was performed. The back was prepped and draped in sterile fashion. Skin and subcutaneous tissues were anesthetized with 6 mL of Lidocaine 2% through a 25G needle. 22G spinal needles were then advanced under fluoroscopic guidance to the appropriate locations. 0.3 mL of Isovue contrast was injected at each level demonstrating appropriate spread without vascular uptake. After confirmation of negative aspiration, 0.5mL of 0.5% bupivcaine was injected at each level. The needles were removed and bandages applied. The patient was brought to the recovery area in stable condition and then monitored for an appropriate period of time. The patient was discharged home in good condition with post-procedure instructions. No apparent complications. Epidural injection procedure Physical Exam: vital signs Vital Signs 04/18/2018 13:56 EST Peripheral Pulse Rate 52 bpm LOW Respiratory Rate 14 br/min Systolic Blood Pressure 166 mmHg HI Diastolic Blood Pressure 94 mmHg HI SpO2 99 % 04/18/2018 13:08 EST Temperature Oral 37 DegC Peripheral Pulse Rate 60 bpm Respiratory Rate 16 br/min Systolic Blood Pressure 137 mmHg Diastolic Blood Pressure 70 mmHg SpO2 99 % . Normal [facility] Comment on above: Result Comment: Elec tronically Signed By: Tammy LANDIS, Gerard Hernandez.br\Date and Time Signed: 04/18/18 14:01 EST Message - General Officeon 1 06-12-2017 Message - General Office From: Jeannie Sosa To: [facility]; Sent: 03/30/2018 11:41:15 EST Subject: Tammy - Auth - 03/30/18 From: Yanique Mcdonald ([facility]) To: [facility] Pending Procedure Prior Authorizations; Sent: 03/30/2018 13:17:43 EST Subject: office notes needed /Emily From: Yanique Mcdonald ([facility] Pending Procedure Prior Authorizations) To: [facility] Pending Procedure Prior Authorizations; Sent: 03/31/2018 15:05:20 EST Subject: Tammy-pending [place] Due Date/Time: 04/12/2018 15:05:00 EST faxed office notes, med list, PT notes-Litzy, Lumbar xray fax coversheet-scanned to chart From: Yanique Mcdonald ([facility] Pending Procedure Prior Authorizations) To: [facility]er[facility] Inbox; Sent: 04/07/2018 09:26:32 EST Subject: Procedure-Tammy care p james 03/30/2018 [facility] DX M47.816 Emily letter of approval scanned to chart Auth [id number] exp 05/01/2018 From: Elisa Kay ([facility] Inbox) To: [facility] Inbox; Sent: 04/07/2018 10:48:42 EST Subject: 2nd call Kit Left message on voicemail for patient to call back to schedule injection. From: Elisa Kay ([facility] Inbox) To: [facility] Inbox; Sent: 04/11/2018 15:30:08 EST Subject: RE: 2nd call Kit Scheduled procedure for 04/18/18, scheduled follow up for 05/19/18 at 9:30am. Normal [facility] Coding Summary.on 04-07-2018 Coding Summary. 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 However, the narrative phrase printed from the coding software may appear abbreviated, or result in slightly different terminology. Coded By: Shellie Vásquez Date Saved: 04/07/2018 02:09 pm Normal [facility] Consultation Noteon 04-04-20 Consultation Note Patient: DEANA CROFT Age: 47 years Sex: Female : 1970 Associated Diagnoses: None Author: Mili Koroma PA-C Subjective Chief complaint 03/30/2018 10:38 EST lower back pain . Patient is a 47-year-old female with a past medical history significant for fibromyalgia, lumbar spondylosis, and chronic pain. She presents today after a 2 month follow-up. Unfortunately, her insurance previously denied the medial branch block. She has now undergone 8 weeks of physical therapy as well as use of meloxicam all without any significant long-term relief. The physical therapy does minimally improve her back pain but she still continues to have back pain with anterior thigh pain. She rates it a 4/10. Affects her ability to walk, sitting, bend, and twist. This affects her quality of life and activities of daily living. She is on meloxicam which does take the edge off as well as gabapentin 300 mg 2 tablets twice a day. Unfortunate, the last time she called for a refill the wrong amount of pills was prescribed. She will require a refill approximately 10 days early because of the shortage. She will call and this is necessary. She does not require a refill of the meloxicam at this time. She would like to try and proceed with the medial branch block since she has now failed conservative treatments. Health Status Allergies: Nonallergic Reactions (Selected) Severity Not Documented Venofer- Swelling and hives., Allergies (1) Active Reaction Venofer swelling Current medications: (Selected) Prescriptions Prescribed gabapentin 300 mg Cap: 600 mg = 2 cap(s), Oral, BID, X 30 day(s), # 120 cap(s), Refills(s) 0, Pharmacy: [facility]/pharmacy #[id number] gabapentin 300 mg Cap: 600 mg = 2 cap(s), Oral, TID, # 180 cap(s), Refills(s) 0, [id number] meloxicam 15 mg Tab: 15 mg = 1 tab(s), Oral, Daily, # 30 tab(s), Refills(s) 0, [id number] meloxicam 15 mg Tab: 15 mg = 1 tab(s), Oral, Daily, X 30 day(s), # 30 tab(s), Refills(s) 2, [id number] Documented Medications Documented Celexa: 40 mg, Oral, Daily, Refills(s) 0 Misc Medication: Mobic: 15 mg, Oral, Daily, Refills(s) 0 Vitamin D 50,000 intl units (1.25 mg) oral capsule: See Instructions, 1 cap(s) Oral twice per week, Refills(s) 0 Xanax: 0.25 mg, Oral, TID, PRN as needed for anxiety, Refills(s) 0 calcium (as citrate)-vitamin D 250 mg-200 intl units oral tablet: 1 tab(s), Oral, BID, Refill(s) 0 gabapentin: 900 mg, Oral, TID, Pain Management prescribes., Refills(s) 0 vitamin A: Oral, Daily, 3 tabs once a day, Refills(s) 0, Home Medications (12) Active calcium (as citrate)-vitamin D 250 mg-200 intl units oral tablet 1 tab(s), Oral, BID Celexa 40 mg, Oral, Daily gabapentin 900 mg, Oral, TID gabapentin 300 mg Cap 600 mg = 2 cap(s), Oral, TID gabapentin 300 mg Cap 600 mg = 2 cap(s), Oral, BID meloxicam 15 mg Tab 15 mg = 1 tab(s), Oral, Daily meloxicam 15 mg Tab 15 mg = 1 tab(s), Oral, Daily Misc Medication Mobic 15 mg, Oral, Daily vitamin A , Oral, Daily Vitamin D 50,000 intl units (1.25 mg) oral capsule See Instructions Xanax 0.25 mg, PRN, Oral, TID Problem list: All Problems Anxiety / SNOMED CT 37736553 / Confirmed Iron deficiency anemia / SNOMED CT 468632119 / Confirmed Venous insufficiency / SNOMED CT 98118651 / Confirmed Vitamin D deficiency / SNOMED CT 25240692 / Confirmed Resolved: Anxiety / SNOMED CT 74563252 Resolved: Chronic venous insufficiency / SNOMED CT 01558872 Resolved: Iron deficiency anemia / SNOMED CT 939601569 Resolved: Low back pain / SNOMED CT 445275421 Resolved: Malabsorption / SNOMED CT 15174177 Resolved: Vitamin D deficiency / SNOMED CT 96180908 Objective Vital Signs 03/30/2018 10:38 EST Peripheral Pulse Rate 69 bpm Respiratory Rate 16 br/min Systolic Blood Pressure 129 mmHg Diastolic Blood Pressure 60 mmHg Mean Arterial Pressure, Cuff 83 mmHg Measurements from flowsheet : Measurements 03/30/2018 10:38 EST Height/Length Measured 167.64 cm Height/Length Estimated 167.64 cm Weight Estimated 88.45 kg BSA Estimated 2.03 m2 Body Mass Index Estimated 31.47 kg/m2 General: Alert and oriented, No acute distress. Eye: Normal conjunctiva. HENT: Normocephalic, Normal hearing. Cardiovascular: No edema. Musculoskeletal Normal range of motion. Normal strength. Pain with compression of the lumbar facet joints. Positive axial loading. Integumentary: Warm, Dry, [place]. Neurologic: Alert, Oriented. Psychiatric: Cooperative, Appropriate mood & affect. Impression and Plan Patient is a 47-year-old female with a past medical history significant for fibromyalgia, or spondylosis, and chronic pain. She continues on gabapentin 300 mg 2 tablets twice a day. Tolerates well. No noticeable side effects. This does help to take the edge off the pain. The last time she was given a refill the wrong amount was launched. She will be approximately 10 day short. She will call when a refill as necessary because of this. In regards to her lumbar spondylosis she has undergone 6 weeks of conservative treatments as well as trial with anti-inflammatory medications all without any significant improvement. We once again submit for bilateral L3 - 4, L4 to 5, and a fetish S1 facet medial branch block. This will be done for diagnostic purposes. Patient is aware that if she has good short-term relief, we can proceed with RFA in the future. A detailed description of the procedure including risks, benefits and alternatives were discussed with patient. Call the clinic with questions or concerns. The patient agrees with above noted treatment plan. OARRS appropriate. I was continuously available for direct communication during the patient encounter. I agree with the evaluation, assessment, and plan of care. Normal [facility] Comment on above: Result Comment: Elec tronically Signed By: Tammy LANDIS, Gerard Hernandez.nuha\Date and Time Signed: 04/04/18 10:51 EST Coding Summary.on 03-22-2018 Coding Summary. CODING DATE: 018 FINAL [facility] STATUS: Home (Routine DC) PAYOR: Medicaid EAPG DESCRIPTION 0471 PLAIN FILM ADMIT DX: REASON FOR VISIT DX: M47.896 Other spondylosis, lumbar region FINAL DX: PRINCIPAL: M47.896 Other spondylosis, lumbar region SECONDARY: PYMT PROC EAPG STAT DESCRIPTION DOCTOR NAME DATE NOTE: The code number assigned matches the documented diagnosis and / or procedure in the patient's chart. However, the narrative phrase printed from the coding software may appear abbreviated, or result in slightly different terminology. Coded By: Rebecca Salinas CphT Date Saved: 03/22/2018 09:53 am Normal [facility] Message - General Officeon 1 05-22-2017 Message - General Office From: Luyc Strawhat Inspector And PackerRadha Dotson To: [facility]; Sent: 03/18/2018 15:28:54 EST Subject: appt/refill Patient left a message requesting a refill of mobic and gabapentin. Patient will need to schedule a follow up prior to refills From: Randy Newby ([facility]) To: [facility]; Sent: 03/21/2018 08:49:58 EST Subject: Scheduled 03-30-18 Called patient and scheduled for 03-30-18 @ 10:40 with Mili. Patient stated she will need her refills on Mobic and Gabapentin before her appointment. Please let patient know when refills are ready at [facility] in [place]. From: Randy Newby ([facility]) To: [facility]; Sent: 03/21/2018 12:18:26 EST Subject: Refill Mobic and Gabapentin From: Ellen Walters RN ([facility]) To: [facility]; Sent: 03/21/2018 16:25:09 EST Subject: Med Management On hold pending signature Order:meloxicam (meloxicam 15 mg Tab) 1 tab(s) Oral Daily Qty: 30 tab(s) Refills: 2 Substitutions Allowed Route To Pharmacy [facility]/pharmacy #61 On hold pending signature Order:gabapentin (gabapentin 300 mg Cap) 2 cap(s) Oral TID Qty: 180 cap(s) Refills: 0 Substitutions Allowed Route To [facility]/pharmacy #61 OARRS attached. Please make any necessary changes to orders launched. From: Ellen Walters RN ([facility]box) To: Andrew Moe MD; Sent: 03/21/2018 16:25:30 EST Subject: RE: Med Management Not Approved: Order:gabapentin (gabapentin 300 mg Cap) 2 cap(s) Oral TID Qty: 180 cap(s) Refills: 0 Substitutions Allowed Route To [facility]/pharmacy #61 Not responsible for patient Signed by Andrew Moe MD Not Approved: Order:meloxicam (meloxicam 15 mg Tab) 1 tab(s) Oral Daily Qty: 30 tab(s) Refills: 2 Substitutions Allowed Route To [facility]/pharmacy #61 Not responsible for patient Signed by Andrew Moe MD From: Andrew Moe MD To: [facility]; Sent: 03/21/2018 16:45:44 EST Subject: RE: Med Management Tammy martinez From: Mandy Roblero RN ([facility]) To: Gerard Allen MD; Sent: 03/22/2018 07:14:13 EST Subject: refills OARRS attached. Please change gabapentin to TID and review Rxs and modify if needed. Thanks On hold pending signature Order:meloxicam (meloxicam 15 mg Tab) 1 tab(s) Oral Daily Qty: 30 tab(s) Duration: 30 day(s) Refills: 2 Substitutions Allowed Route To [facility]/pharmacy #[id number] On hold pending signature Order:gabapentin (gabapentin 300 mg Cap) 2 cap(s) Oral BID Qty: 120 cap(s) Duration: 30 day(s) Refills: 0 Substitutions Allowed Route To [facility]/pharmacy #[id number] Approved Order:gabapentin (gabapentin 300 mg Cap) 2 cap(s) Oral BID Qty: 120 cap(s) Duration: 30 day(s) Refills: 0 Substitutions Allowed Route To [facility]/pharmacy #[id number] Signed by Gerard Allen MD 03/22/18 12:23:00 Approved with modifications: Order:meloxicam (meloxicam 15 mg Tab) 1 tab(s) Oral Daily Qty: 30 tab(s) Duration: 30 day(s) Refills: 2 Substitutions Allowed Route To [facility]/pharmacy #[id number] Signed by Gerard Allen MD 03/22/18 12:23:00 From: Gerard Allen MD To: [facility]; Sent: 03/22/2018 12:27:20 EST Subject: RE: refills OARRS reviewed. Rx sent. thanks From: Lucy RevelesStrawhat Inspector And PackerRadha Dotson ([facility]) To: Lucy RevelesStrawhat Inspector And PackerRadha Dotson; Sent: 03/22/2018 13:20:36 EST Subject: RE: refills called patient, left message to notify that prescription sent to the pharmacy [facility] Comment on above: Other Comment: Kat banks Attachment - attachment storage system not supported (03/21/2018) croft Can be viewed in source system Visual.ly Officeon 1 05-21-2017 Message - General Office From: Lucy RevelesStrawhat Inspector And PackerRadha Dotson To: Tammy LANDIS, Gerard Sanches; Sent: 03/18/2018 11:27:05 EST Subject: lumbar spine xray patients lumbar spine xray results are in chart and ready for review pdfCD:[id number] MCu0UViFOHNFg4EWPou6TtPnp7F p0FzHw9KOSpP7AaCUMfWDDxr9Fz IAovTGVu Y8PpSTm1DFLIUo7Nb8VhCRPkKkb sjTkaz6X4MZ4Zl6XxwllFGBPY4g qHSY5pOauYy9h8+yBjxagL khewXf/5Msdh3WMlXhbvzMfqbBV ILxrtgdf9HMYV1haWjkPrXuvurI GodnhVe2A0HcaaQfw4gBaV DUwpB21XpMaMzTTUJkyxiJJaDJU 8lSO8BNBk0RHRG+MkVUlAdyKvEj oa0wDr5Y0n+wZX6FV7O3eY fnQF/yeYx7XwwdQrdMmboxQVVbH r3B7TPtJ1T8aq+PLXYjnTNlzzAy FbvyFMnSJJBpS2Po+kq9D/ v0HbGHGdiGYoAYuWbBgsWvLyqF9 zyQfHROtmjD7sEaN0RK+j3E+rIb Qo4RQhiMsO6I9U3wP/rYIh bSLOvqDnxdo6RX/6CC34ub9z95N M1cvigM7hQg8QN4hewLNgFQmXR2 LyFSchamk3K8f5hJ19hMeq nPbgRusntcdr93gA1Zs3prN59UK o/2dtHLkMoGcrm7CcAncNvzSguc LBFjP3qKFbobKGyo9iPviZ Ilm3vyftU/ee0erXMbdjHZSjcBK 1MgmGAHVlxPs3QKm3verLUfLkiD 60OyoQ+XXyqORzR1i6EdZU gIL5FHhosTmVgJVwNuqK+LuKd4R oPoi0xMER3KqX8ao+orTq2ZJN+9 VhyLLQueN4YRC01UfeTMc5 JoB07sNOiUtgTA4PMfOGcqA1q3p 0k2hznsWOiSHYOwdFnWr7kgtHFf wPDr7v8svqdaTs1goXFU2F ifzsQw9bMp3orcv7vo2Uy5Dir67 kOMlzcWR8+78GhvGyuH15VTLhL8 SpywDgC2MlGgcsN6547QXR hYsKqJZ2nLgCVlcYiOmVXRvxd3d cW6xFae5/wiM4j4FZT3vYdrkAsJ WkcOH1G4/zPjcbJVkijirO qu5U3+hB1kpKR0xoXPzTmmZWych E9CVj80IH8T1lsFjBWTo9gZkGBa T3UHPkRbf2UFNgZ4dAtWWv 57ITro2U0or4pWGmr389V8t1ryv d7cs98DQnuGh3zBZpTzhlTSEdoK N6doz3JAg2zf6X7J3jYHqK yVwl5/uGJMXb99RY7W4iHFi48tJ bx8f99P7+HyXPtKv2KY2Ko3OOj/ LzADQq7Par/U0qJ7jX3LB/ 305dKRDghwqNsnWIkwsc3uByVl6 K4/JixNR1/D62jw6hjOlr5z37wc moZyuG1RvyBl9/s6lW5/fl TWz1oZU5cdia+o4F2UkSDTFiKGp Zy+szHh/r1Kr37pcam305Q2x70W Ay/W//MRK3f48GOT6Eo6K3 n34rEmgbcd5nq7dlF+4e/wIJhpq OYiYmTNF1ptRdrBtwqeXxFtxQDz HbLC1dabx4OZwzDOBbUF09 APagZNBINLWZR5Fpt034iiTmliF 1YIlyP01cr7ZCkHFkHLQ6XBwmUI RoAQIwrYMLBgL9MFMaEsKq Ht8EAD0Ynv0kP7Y4MRwlQKNTJH1 CXUr0BJSoBn3ckHO0SPxjJ698yq C9ZGQaWrNjR9tgiKDrZRFa MCBSICAvSGVCbyAxMSAwIFIgID4 +Lori+UpouEj7Bn347KX90gwL0HZ XlEyBhGl7GnUZzFA0HXUvm DCubSEFmdHLTe6lePcWnXMH8PCF gBlndRAYEIf2KPY6cc6RoZljhPT UvYoiTZFgAO2RmitYufTXu QACbVkWcNu0PiYGcDQe0DSKsYv3 dUy5Qx0InbWUuFXawNJwpYTWfUE FnZXMgCj4+TmDqNZ3ypamt PZWtf1ZnMhh1Sd8EqLPxJZp4UNH lTp6wTe4Qe9UwtVIgKDvhJKszQT AvUGFnZXMgCj4+DyKtUE0n skjnGaGgKQ5xntl6FMj+PgplbmR zAikWJMWcXA5mgus2RKslRutpy1 HoEFUrCnJcFP9bLDBdACSw PRTEDZGPV7JhD4IIp4LwWG2Az9E Ay59uELtuVDOtZLZkKbFfNSYhVZ qmP2O7cTnbMHCgVgEuEVDz EOqsVLmsADTuD5H4WCklZjJZRp0 VGL3do5DkCyMwPHXrIywPYh2DG9 QQNTDvQCS0AHGzCkVhVHcp vqQdXigKVWOwQL6tlmw0HSgwMpe qbBSeYM8JaMG6KIIuO07sVOYZY0 zyecp7fKNwYRe1VQawFyIj IAo+TdxftTCfFB5JtJuikjjBF0w Wh8+8H61MgcSEcQAqhXNDCZ75OG EuKjEJEErAkAAiNkRUcERR kaYIMijggKNDkbEiioUBUbHrBBl V3OXoLWaDOVDlEh+8ee/Ew04j81 3nm44Z9Wqqxfu0DQN8joLU ZVdReMxbRYLa17STwPddSHwWODR SM4dO6CKut8UQ+DGYnFB42CfmqT S2P274ArZ3+niUN6lGED+f lLlZIjEAUJiM5/W06JjRM8o6LJz iTjdTlYk9ZQ9ZROlQFneGZcmLj/ PpX1j2jZOILjAoaNiPx0KZ 6rPa9Oqj2711Xz3GpMZZE+cI+Lk zlmZcz3LTbnYIe+SxGXxONgAokt us4eSXTClyJ4ScNaNr23rS 4EjJX/DOE0hCjzRRD1QEvRkgHuK niBkmXFOGjZMTi+OVw23hp3UNDI 94jELoWrmZKUgn8IOMYc/8 GNU6mJphTivJWJq5FC2fga4l4R7 d/KmP95fPKwZ/7hlEH/jD9ld+mQ 9CaYTlgfu2a61dIMFa8wSF u/2HzWAvAIqyvnUOfXEeunxeUsT xVPjti9guNZiMl0cyA+jv+p8Of0 PgfE5Lwm7r3XG336B2jvQd O987luC2jrWCxW1pfPuJ4e+H+B8 H/qWrNmL2NG8OJ5RPWIcrHSTKsa WbdENAJApEmgF7v0n4T3T+ vPe0kmnc+FPPnpzCwQKbKB4cBWm dCGGVd6Un5P73S4KZE/fXh8TOiR 37z4L+oPo9OJ8QInM/jmNH XYH0QaWV6Mz6VzE4WECOHMJzWKf oAxPABLbAEbgAD+ADAkEoiARxYD HgghSQAUQgFxSAtaAYlIKt ZDavNbZmZRMIGtRDzASl6PF7Xh6 Gd3EH2GIDJH8ziDkwFodPEGTIsK GBEnv9DVMURGIZNQLc8OCS QxFQHJQIJUNCSAIVQOugUqgcqob qoWboW+inlJz6AZ8Mt4URpCM8OX oHIzAJpsFasBFsBbNgTzgI djVBtcndRohuWtU1sYMpI9oM7sA Dg5izZPdVQ0WjQJUEVHdpdcNSZd JQSsR1FLaJZehTUmEKtMBk fP2iZ6tLWELyiXnYClQEENHAfAh QBdQX4hHTdHmyGjGiCUqCxcb+1F YRYGpD5EWYQgdhekSC0JE7 NYwWpNtcGxueb8Ic2NFdNgS7+hU Xv5JscXZWXQ1VVCEEzoLnFoVu02 91zUuQxLNexAwtZvTn27gV eAKkNuudjjj2UEfEijN9tf2QM+J 9iHI6X1t1VflqqENcDuNcnZzhV9 gZvBLeEO+PO9Yb8QivNzyQ fA9+CD+BesXwS5cYlaZHNtmrRmP Q9RF3Q5fEuBUrSfHCGoIjwsL0oa hQWKV1VwpohxJMFWSlPbtZ KJPiZj9loAHbXh7os7zTTC0fNAr J4sMvNc2x8lv/UaAqWCoEKPAUVi kLDLWlTJT9ropSKMY3KDnl oM4ViDeWcForeELtvLoCssHBGkG Rt5FX7XfEhTWG6IQ5DYnFmgIlt/ SF6ZlKUWXW9vGlQWax+yhn AJMXmSuIKXJ22TXBQaxH2ikDQcU zGwBFbfF3s0zLlYfPafifOsBMlv aSflQSUL1vF6DW6Pa5Brwl +cZ1M0ZuBE6Ircxk9TvVO4wt8ag dnnks6TmJ5jOF0V3wP9K82BSAr6 l3qd/FAAyFhYXy2Hrk9Ekt 7XUOsJ2OPI0ufdoZ33lKeYPBPYD 8R9ny1qaBcJbL1oVIptTz3mkg7S Hahg9pjkv7U/dP1vQXZezT R6CzQ+osddCROsLYtz7dKIRfosJ 9hg32Omn6fkP6B7nPyrS9lGudrr f0Cfos/CP5Wew4+lMGOgYh SySJtUk7RbRKQYOUl48O/YavjYy BTrh8VRCLOZMFMl4ylpqjOi5nWh NoL1rm1vZiaRVgcbATV31r deuLYwZ5PnWhINhgn38ckOTgw85 TBlLMJiNMhwpYG8hX58VLh2qvqn aLUYKoSd77BO3CKHmBM25x 6ko6xK1jrP7qfO6XeoOAlEJc24R zl39EDym9ziwfWDLx81qn09eFkH 3wnmh725Y1540gD4H/wb7X /vKTi5ZYob9p0yWWPaEo2qUFk8Z RY47mjUeMN7p5zOW27pVS3zMR4F zY+AgIokrbA2oQj3oO9/jz PkuCscc2rdpdPqKmZIkQl93xXai fz165o/pSL26KlgqXu9UqwTrj01 NNR09TZaPqPc/LzYk7AmIq e6Yth0kLf2BA9wCtS+8n27tVJ1v 85XoVd96ist8op1X/kP82/xsBWg HcgOaAqUDHwJWBfUGkoAVB 2TVBfv3PMvN8AQMNNYy7vMajSeq X75rWbzCU5R9b89UDo2qGhG+OCQ 8Lrwl/YSMEPCPSf0I5EEfS wiDnSw0wlsMwLLgMMvA3gtUrH5W bo1/LwMrWm6wpxUOAtm3A37wEjE XHY+Dz97fclrs2KKx0sAgF EpU56wot71H6jc9v5wvzhsw9HuG rhOPRZvCGDHlgxg46zWeRgaSKxL T8N9s4jP2i7oRvT77Zt7Gm ukrainian/jHtN0MmNrBTa1Xa2nJNrrusV D4fEKDxVEsta0j4xoxz7AXdpo2u y3Xl75Q9iHeUKGGFOcKdce qOTcGuvzwJNRf8LYxVjuURUlPbC 3QALXt8F9hXUZe5VVyWItEhXs28 ZTk/WdKls0MS4limCuWZwR 8k3LJ/Z4964ckOcVQjWnhRlkfmC 0pefK+eNBwlLzgcskou6iCh0Gr0 9FjTI4yUc/UHXxNY11vO3g MANCILLA+BQhFuxcJ6dmshblKKFqJ7Wot yjGhG3ifWMGsx5lmeGM1OoKMWR1 5OK3euj+JuzvrFuLpUP12l mjScxYvcrN5FtPjf9mlj3PwoVZl tag3v9k2eqJOQP0fTuuo5s+y8UG UXRqkPmXiuN9sURGeoNKD2 zlk0jCu3SM8TMIiyRj4b4dz5tei n1WSP58wiUFye221nLK/Ner/6zg boalb2eI11+v07Qgx6t331 ywoBp1z64wI+0J1mhHkAdw0Adc2 owe6doBLtnYFmJRSTc117u9Xulg yqr9p5ln3EgqUVWh+b+O31 w0GHe4+wjrR9Z/qpgCw1c8TL1es uPgRZ1bMarxrkIpp9tVpJhzyjb1 vv9x/UNQNdEVH04SuLrvUQ e08rh4i+jTLb5cpf45J9K6jhzJe 4q18peG/wbNDZ8+d4i91w1+w/ed 71/MFFokrHXlXc8SwzpOpp gQ0x2ez0NvxOAHX8dekQbi91Gy4 Zvhf98wv8stODlx+yndUz0kVA/J Iy83GCp36OyWS7xnj25Eb2 eme5u51L3LifV9259J5WyAx9hps jjlV1jG8kUE1+5x584AMTrzvq8Z EnP2X/8Y410CQ9HmHNgqNd F8uZeqW1Ta4/Xvh4/BkOh2uemH6 r/3a1sFTBk951/DIwFTs1/lz0/N Ovm1+ov9j/9l8r21MW7X6L Dc5vZyt0UB9x7S2mdb+1rPoYV2j hjo4hX9i+0KgX3GYiw7xOt38S04 Tz+vlhtoIouJUfHN9IYD7h n7HvWnUyJRJdUxiHQZdUYb3OAH0 tu8WbOpVxRUXqe5KwGkz0Cn1Nlj HfEOqrOiHeW1puMU0msRJj T95duO4aCTqeE1NgrVztRDKhSJh kHWWvZc3TQI0gFC5PFZRzONthVy UwTKWxctZoJ5qtaCPddXxs CF7Zd4ulBZbiBOpqWNUpUh1rrRH BIz7RVN2yk5JiXfwzBFTuHykSJY oMG5ZgD10hyF2yEQ2OiU3Q evByEU0wa4BslebmZh6TwCH2wGD wZN2SxBUaIRETD09jpRVjR8RdxY GqMk5ZCIZbCw4jfFIsP125 awcfzxMMG4O3kCRxS8SmrjFcMw4 +RnLuRU9vvsesLVBaSR2fcbq2OA tcTJ2zd3GzywkjO6ajnoKg n7pVnnSpNAtmEjGCB5U7PoI6cJQ pG6L1sJPeRUzyJmSkHZOqSPLewu QLR7Tok3ODb294UL3BMNo2 GYJkZ4LkTg9GrLWyDV1Gm813JYp +PgplbmRvYmoKMTMgMCBvYmoKPD jEJ9Qrf8P0H3RkKVtIYeI5 HEJODaGOeoOieP6hTOBkKG8tFcN tBRLfUASuYiPBMU3WH9BtSBlnW5 JzOTTdn29CQWEjIHrYRdXk GSigWZX8HDEkYgM4Ll13QoDkHdg pHn6Cy2YQAXKqTNyAQzZaKMkiAY J3MBIqTyR8Vz67XcLtYwcl Cj4+CxBuYE8xyrs6zaRkEeJuYYM VNPUvOXPbBGDsXHK6RCScITHkJR rnWTNwIMVkCYD8LDLbJLDe TS7tHaVpXOUoFDNnXtscJFJtCVU qqlXTHIAmDUGmEOJ2PQMwDMTyYN HgJUspBECcJLNrFXJ9MWNd HOWwOE1uVwIqFFOfEGJ2ASHaBJT bZTYwspAHGFVuTMLkZNV6ZAPaCF AwMCBuIAowMDAwMDAxMjkx JMYlPJJxKO8nPkFzBZUrPDZvKaP gMDAwMDAgbiAKMDAwMDAwNDQyMC AwMDAwMCBuIAowMDAwMDA0 ATPnAPPlNBAnJI6gPtPaNCZpUFY zMDAgMDAwMDAgbiAKMDAwMDAwMT QyNyAwMDAwMCBuIAowMDAw XKH5McR9KBQnGJPnRW2fTjAcUQs hMAWJFBwZJ7QelfToIPMbCg9Far CfRSPoKHXnYhOxMc4Es672 IDEgMCBSIAo+PgpzdGFydHhyZWY LQVe7UUddJQQXOkp= From: Mili Koroma PA-C To: Lucy Strawhat Inspector And Packer., Radha; Sent: 03/21/2018 12:37:07 EST Subject: RE: lumbar spine xray reviewed. FUV as per care plan From: Erica Roblero RN To: [facility]; Sent: 03/21/2018 14:58:22 EST Subject: FW: lumbar spine xray From: Randy Newby ([facility] Inbox) To: [facility] In[facility]; Sent: 03/21/2018 15:11:57 EST Subject: Appt 03-30-18 Patient is scheduled for a follow-up 03-30-18 @ 10:40 with Mili at [facility]. [facility] XR Spine Lumbosacral Minimum 4 Viewson 03-17-2018 XR Spine Lumbosacral Minimum 4 Views Exam Date/Time: 03/17/2018 10:00 EST Reason for Exam: lumbar spondylosis Report IMPRESSION: Moderate degenerative change at L4-L5. EXAM: XR Spine Lumbosacral Minimum 4 Views DATE: 03/17/2018 9:40 AM REASON FOR EXAM: Chronic lower back pain lumbar spondylosis COMPARISON: None FINDINGS: Alignment is normal. Vertebral body heights are well-maintained. Disc space narrowing at L4-L5. Vertical striations involving the vertebral bodies of L4 and T12 consistent with vertebral hemangiomas. Oblique views show minimal facet arthropathy L5-S1 bilaterally. SI joints intact. No acute fracture. FINAL REPORT Dictated: 03/17/2018 12:09 pm Kvng Aguiar MD Signed (Electronic Signature): 03/17/2018 2:24 pm Signed by: Kvng Aguiar MD Transcribed by: lion Technologist: KRYSTLE [facility] CNCOon 07-22-2017 CNCO Letter [facility]North [facility] [place], [place] [address]Abvag: [phone]: [facility] [place], [place] [address]Oxktt: [phone]: [place] [id number] [place], [place] [address]Wsbmk: [phone]: [phone] Free: [phone] [email or web address] mari Luz M.D., Ann Weber M.D.Timothy J Adamowicz, D.O..Liang Hamilton M.D. FACROSaju A. Rajan, M.D.July 22, 2017[place] [id number] [facility] [address]Ccoz Ms. Croft,You missed your scheduled appointment on July. Pleasecall our office to reschedule. If you need to cancel any futureappointments, please call to give us 24 hour notice so that we can offer yourappointment to another patient.Sincerely,Roni Coon M.D. Normal [facility] CNCOon 06-24-2017 CNCO Letter TextNorth [address] [address]Bezyr: [phone]: [facility] [place] [address]Ytesd: [phone]: [address] [address]Vpuls: [phone]: Toll Free: [phone] [email or web address] mari Luz M.D., Ann Weber M.D.Timothy J Adamowicz, D.O..Liang Hamilton M.D. FACROSaju A. Rajan, M.D.June 24, 2017[address] [facility] [address]Ztfr Ms. Croft,You missed your scheduled appointment on June. Pleasecall our office to reschedule. If you need to cancel any futureappointments, please call to give us 24 hour notice so that we can offer yourappointment to another patient.Sincerely,Roni Coon M.D. Normal [facility] CNOVSPon 05-27-2017 OVS Visit (SP) Office (HEMACL) -------LANGDEANA ([id number]) 1970 FDate Time Provider Department05/27/17 2:45 PM RONI COON HEMACL During your visit today, we recorded the following information about you: Temperature Pulse Respiration Blood pressure 98 degrees 65/minute 18/minute 119/74 Weight Height 91.3 kg 1.651 Gerry Coon MD 05/27/2017 3:08 PM SignedJOSÉ MIGUELTerabenjuan Croft is a 46 year old female who presents in follow up. She had gastricbypass and periodically requires venofer and B12. Her last venofer was 2015. She is on monthly B12.Current Outpatient Prescriptions:ergocalcifero l, vitamin D2, (DRISDOL) 50,000 unit capsule Take 50,000 Units bymouth once each week.HYDROcodone-acetaminop hen (NORCO) 5-325 mg per tablet Take 5-325 tablets bymouth every 6 hours as needed.citalopram (CELEXA) 40 mg tablet Take 40 mg by mouth once daily.ALPRAZolam (XANAX) 0.25 mg tablet Take 0.25 mg by mouth at bedtime as needed.traMADol (ULTRAM) 50 mg tablet Take 50 mg by mouth as needed.No current facility-administered medications for this visit.ALLERGIESAllergen Reactions- Venofer [Iron Sucro* Hives, SwellingREVIEW OF SYSTEMSGENERAL: No weight loss, malaise or fevers., SEE HPIHEENT: Negative for frequent or significant headaches, No changes in hearing orvision, no nose bleeds or other nasal problemsNECK: Negative for lumps, goiter, pain and significant neck swellingRESPIRATORY: Negative for cough, wheezing or shortness of breath.CARDIOVASCULAR: Negative for chest pain, leg swelling or palpitations.GI: Negative for abdominal discomfort, blood in stools or black stools orchange in bowel habitsMUSCULOSKELETAL: Negative for joint pain or swelling, back pain or muscle pain.SKIN: Negative for lesions, rash, and itching.PSYCH: Negative for sleep disturbance, mood disorder and recent psychosocialstressors.HEMAT OLOGY/LYMPHOLOGY: Negative for prolonged bleeding, bruising easily orswollen nodes.NEURO: No history of headaches, syncope, paralysis, seizures or tremorsAll other reviewed and negative other than HPI.PHYSICAL EXAM:BP 119/74 Pulse 65 Temp 36.7 ?C (98 ?F) (Oral) Resp 18 Ht 165.1 cm (5'5ANDquot;) Wt 91.3 kg (201 lb 4.8 oz) BMI 33.5 kg/s4Eelvblf Appearance: alert and oriented, appearing in no acute distressSkin: skin color, texture, turgor normal, no suspicious rashes or lesions.Head: normal.Eyes: Anicteric sclera. Pupils are equally round. Extraocular movements areintact. .Ears: external ears normalNeck: Supple, no adenopathy; thyroid symmetric, normal size, no bruits.Back:no pain with ambulationLungs: good air exchange overallHeart: RRRAbdomen: No obvious evidence of rebound tenderness or guardingExtremities: Extremities normal. No deformities, edema, or skin discoloration.Good capillary refill..Musculoskeletal: Spine range of motion normal. Muscular strength intact.Peripheral Pulses: Normal.Neurologic: Gait normal. No gross cerebellar defectsPsychiatric: the patient has an appropriate affectHemoglobin (g/dL)Date Value05/27/2017 11.5 Hematocrit (%)Date Value05/27/2017 37.1 WBC (k/uL)Date Value05/27/2017 6.98 Platelet Count (k/uL)Date Value05/27/2017 211 ASSESSMENT/TREY N:1. Iron deficiency - ICD9: 280.9, ICD10: E61.1 (primary diagnosis)B12 per planHold on iron2. B12 deficiency - ICD9: 266.2, ICD10: E53.8B12 per Nadiya Coon MDReferring Provider: RONI COON [[id number]]Allergies As of Date: 05/27/2017 Noted Allergy ReactionVENOFER (IRON SUCROSE) 03/05/2014 4 - Hives 7 - SwellingDate Reviewed: 05/27/2017Reviewed by: Doris Roblero - Fully AssessedReason for Visit: Anemia [6] Cmt: follow up cbcPrimary Visit Diagnosis:Iron deficiency [E61.1] Other Visit Diagnosis:B12 deficiency [E53.8]Disposition: Return in about 1 year (around 05/27/2018).Follow-up and Disposition History RecordedPrescriptions as of 05/27/2017 Sig: ERGOCALCIFEROL (VITAMIN D2) 5* Take 50,000 Units by mouth on* HYDROCODONE 5 MG-ACETAMINOPHE* Take 5-325 tablets by mouth e* CITALOPRAM 40 MG TABLET Take 40 mg by mouth once lauryn* ALPRAZOLAM 0.25 MG TABLET Take 0.25 mg by mouth at bedt* TRAMADOL 50 MG TABLET Take 50 mg by mouth as needed.Medication notes this encounter ERGOCALCIFEROL (VITAMIN D2) 50,000 UNIT CAPSULE >> Doris Roblero 05/27/2017 2:24 PM >> OSBALDO AugustMay 27, 2017 2:24 PM Received from: External Pharmacy HYDROCODONE 5 MG-ACETAMINOPHEN 325 MG TABLET >> Doris Osbaldo 05/27/2017 2:24 PM >> OSBALDO AugustMay 27, 2017 2:24 PM Received from: External Pharmacy Received Sig: TAKE 1 TO 2 TABLETS BY MOUTHEVERY 6 HOURS NEEDEDProblem List As Of Date 05/27/2017 Noted Resolved Iron deficiency [E61.1] INVALID FOR* B12 deficiency [E53.8] INVALID FOR*Encounter Status:Closed by RONI COON MD on 05/27/17 [facility] CNOVSP Visit (SP) Office ([facility]MAC[facility]) -------CROFTDEANA Cruz ([id number]) 1970 FDate Time Provider Department05/27/17 2:10 PM INJECTION JULITA MIKE HEMACL During your visit today, we recorded the following information about you:Doris Roblero 05/27/2017 3:02 PM SignedPatient Identification confirmed: yes.Injection given and documented on JUL per provider order.Doris RobleroReferring Provider: ELLEN SONG [[id number]]Allergies As of Date: 05/27/2017 Noted Allergy ReactionVENOFER (IRON SUCROSE) 03/05/2014 4 - Hives 7 - SwellingDate Reviewed: 05/27/2017Reviewed by: Doris Roblero - Fully AssessedPrimary Visit Diagnosis:Iron deficiency [E61.1]Order(s):[facility] [[id number]] Order #: [id number]: 1 STANDING [] cyanocobalamin 1,000 mcg injectionDisp: Rfl:Prescriptions as of 05/27/2017 Sig: ERGOCALCIFEROL (VITAMIN D2) 5* Take 50,000 Units by mouth on* HYDROCODONE 5 MG-ACETAMINOPHE* Take 5-325 tablets by mouth e* CITALOPRAM 40 MG TABLET Take 40 mg by mouth once lauryn* ALPRAZOLAM 0.25 MG TABLET Take 0.25 mg by mouth at bedt* TRAMADOL 50 MG TABLET Take 50 mg by mouth as needed.Problem List As Of Date 05/27/2017 Noted Resolved Iron deficiency [E61.1] INVALID FOR* B12 deficiency [E53.8] INVALID FOR*Visit Notes:>> Doris Roblero [place] May 27, 2017 3:02 PM Status: SignedPatient Identification confirmed: yes.Injection given and documented on JUL per provider order.Doris Carrillo Status:Closed by DORIS ROBLERO on 05/27/17 Normal [facility] Metabolic Panelon 05-27 Alanine aminotransferase (ALT) 18 U/L Normal 7-38 [facility] Comment on above: Performed By: #### I CATRACHO, LD6, CMP, FERR ####[place] [phone] Albumin 3.9 g/dL Normal 3.9-4.9 [facility] Comment on above: Performed By: #### I CATRACHO, LD6, CMP, FERR ####[phone] Alkaline phosphatase (ALP) 177 U/L High 32-117 [facility] Comment on above: Performed By: #### I CATRACHO, LD6, CMP, FERR ####[phone] Anion gap 14 mmol/L Normal 9-18 [facility] Comment on above: Performed By: #### I CATRACHO, LD6, CMP, FERR ####[phone] Aspartate aminotransferase (AST) 24 U/L Normal 13-35 [facility] Comment on above: Performed By: #### I CATRACHO, LD6, CMP, FERR ####[place] [phone] Bilirubin (total) 0.3 mg/dL Normal 0.2-1.3 [facility] Comment on above: Performed By: #### I CATRACHO, LD6, CMP, FERR ####[place] [phone] Calcium 8.5 mg/dL Normal 8.5-10.2 [facility] Comment on above: Performed By: #### I CATRACHO, LD6, CMP, FERR ####[address] [place] [phone] Chloride 113 mmol/L High 97-105 [facility] Comment on above: Performed By: #### I CATRACHO, LD6, CMP, FERR ####[facility] [address]C[place], [place] [phone] CO2 19 mmol/L Low 22-30 [facility] Comment on above: Performed By: #### I CATRACHO, LD6, CMP, FERR ####[facility] [address] [place] [phone] Creatinine 0.86 mg/dL Normal 0.58-0.96 [facility] Comment on above: Performed By: #### I CATRACHO, LD6, CMP, FERR ####[facility] [address] [place] [phone] eGFR (non-black) mL/min/{1.73_m2} Normal Cl [facility] Comment on above: Performed By: #### I CATRACHO, LD6, CMP, FERR ####[facility] [address] [place] [phone] Result Comment: eGFR (Estimated GFR) Units of measure: mL/min/1.73 meters squaredeGFR is derived from the reexpressed MDRD Study equation using the following parameters: serum creatinine, age, gender and race. The creatinine assay has been calibrated to be traceable to IDMS.An eGFR <60 mL/min/1.73m2 for >3 months is consistent with chronic kidney disease. Refer to KDOQI guidelines for clinical interpretation.In patients with unstable renal function, e.g. those with acute kidney injury, the eGFR may not accurately reflect actual GFR. Glucose mass conc 65 mg/dL Low 74-99 [place] [facility] Comment on above: Result Comment: The [place] [employer] (ADA) provides guidance for cutoff values for fasting glucose and random glucose. The ADA defines fasting as no caloric intake for at least 8 hours. Fasting plasma glucose results between 100 to 125 mg/dL indicate increased risk for diabetes (prediabetes).Fasting plasma glucose results greater than or equal to 126 mg/dL meet the criteria for diagnosis of diabetes. In the absence of unequivocal hyperglycemia, results should be confirmed by repeat testing. In a patient with classic symptoms of hyperglycemia or hyperglycemic crisis, random plasma glucose results greater than or equal to 200 mg/dL meet the criteria for diagnosis of diabetes.Reference: Standards of Medical Care in Diabetes 2016, [place] [employer]. Diabetes Care. 2016.39(Suppl 1). Performed By: #### I CATRACHO, LD6, CMP, FERR ####[place] [phone] Potassium molar conc 3.7 mmol/L Normal 3.7-5.1 [facility] Comment on above: Performed By: #### I CATRACHO, LD6, CMP, FERR ####[place] [phone] Protein 6.3 g/dL Normal 6.3-8.0 [facility] Comment on above: Performed By: #### I CATRACHO, LD6, CMP, FERR ####[place] [phone] Sodium 146 mmol/L High 136-144 [facility] Comment on above: Performed By: #### I CATRACHO, LD6, CMP, FERR ####[place] [phone] Urea nitrogen 17 mg/dL Normal 7-21 [facility] Comment on above: Performed By: #### I CATRACHO, LD6, CMP, FERR ####[place] [phone] Ferritinon 05-27-2017 Ferritin 28.3 ng/mL Normal 14.7-205.1 [facility] Comment on above: Performed By: #### I CATRACHO, LD6, CMP, FERR ####[address] [place] [phone] Iron and TIBCon 05-27-2017 Iron 68 ug/dL Normal 41-186 [facility] Comment on above: Performed By: #### I CATRACOH, LD6, CMP, FERR ####[address] [place] [phone] TIBC 309 ug/dL Normal 232-386 [facility] Comment on above: Performed By: #### I CATRACHO, LD6, CMP, FERR ####[facility] [address] [place], [place] [phone] Transferrin Saturatn 22 % Normal 15-57 [facility] Comment on above: Performed By: #### I CATRACHO, LD6, CMP, FERR ####[facility] [address] [place], [place] [phone] LDon 05-27-2017 LD 186 U/L Normal 135-214 [facility] Comment on above: Performed By: #### I CATRACHO, LD6, CMP, FERR ####[facility] [address] [place], [place] [phone] PROGRESSon 05-27-2017 PROGRESS HNO ID: [id number] thor: Roni Snow: (none)Author Type: PhysicianType: Progress NotesFiled: 05/27/2017 3:08 PMNote Text:HPILluviajuan Croft is a 46 year old female who presents in follow up. She hadgastric bypass and periodically requires venofer and B12. Her last venoferwas in March,. She is on monthly B12.Current Outpatient Prescriptions:ergocalcifero l, vitamin D2, (DRISDOL) 50,000 unit capsule Take 50,000Units by mouth once each week.HYDROcodone-acetaminop hen (NORCO) 5-325 mg per tablet Take 5-325 tabletsby mouth every 6 hours as needed.citalopram (CELEXA) 40 mg tablet Take 40 mg by mouth once daily.ALPRAZolam (XANAX) 0.25 mg tablet Take 0.25 mg by mouth at bedtime asneeded.traMADol (ULTRAM) 50 mg tablet Take 50 mg by mouth as needed.No current facility-administered medications for this visit.ALLERGIESAllergen Reactions- Venofer [Iron Sucro* Hives, SwellingREVIEW OF SYSTEMSGENERAL: No weight loss, malaise or fevers., SEE HPIHEENT: Negative for frequent or significant headaches, No changes inhearing or vision, no nose bleeds or other nasal problemsNECK: Negative for lumps, goiter, pain and significant neck swellingRESPIRATORY: Negative for cough, wheezing or shortness of breath.CARDIOVASCULAR: Negative for chest pain, leg swelling or palpitations.GI: Negative for abdominal discomfort, blood in stools or black stools orchange in bowel habitsMUSCULOSKELETAL: Negative for joint pain or swelling, back pain or musclepain.SKIN: Negative for lesions, rash, and itching.PSYCH: Negative for sleep disturbance, mood disorder and recentpsychosocial stressors.HEMATOLOGY/LYMPHO LOGY: Negative for prolonged bleeding, bruising easily orswollen nodes.NEURO: No history of headaches, syncope, paralysis, seizures or tremorsAll other reviewed and negative other than HPI.PHYSICAL EXAM:BP 119/74 Pulse 65 Temp 36.7 ?C (98 ?F) (Oral) Resp 18 Ht 165.1 cm(5' 5 ) Wt 91.3 kg (201 lb 4.8 oz) BMI 33.5 kg/o5Hedmnyp Appearance: alert and oriented, appearing in no acute distressSkin: skin color, texture, turgor normal, no suspicious rashes or lesions.Head: normal.Eyes: Anicteric sclera. Pupils are equally round. Extraocular movementsare intact. .Ears: external ears normalNeck: Supple, no adenopathy; thyroid symmetric, normal size, no bruits.Back:no pain with ambulationLungs: good air exchange overallHeart: RRRAbdomen: No obvious evidence of rebound tenderness or guardingExtremities: Extremities normal. No deformities, edema, or skindiscoloration. Good capillary refill..Musculoskeletal: Spine range of motion normal. Muscular strength intact.Peripheral Pulses: Normal.Neurologic: Gait normal. No gross cerebellar defectsPsychiatric: the patient has an appropriate affectHemoglobin (g/dL)Date Value05/27/2017 11.5 Hematocrit (%)Date Value05/27/2017 37.1 WBC (k/uL)Date Value05/27/2017 6.98 Platelet Count (k/uL)Date Value05/27/2017 211 ASSESSMENT/TREY N:1. Iron deficiency - ICD9: 280.9, ICD10: E61.1 (primary diagnosis)B12 per Rylie on iron2. B12 deficiency - ICD9: 266.2, ICD10: E53.8B12 per Nadiya Coon MD Normal [facility] Remote CBCDIF (for [facility] use o nly)on 05-27-2017 Abs Baso 0.03 k/uL Normal 0.00-0.10 [facility] Abs Mcpherson 0.53 k/uL Normal 0.00-0.86 [facility] Abs Neut 3.55 k/uL Normal 1.45-7.50 [facility] Basophils/100 WBC Auto (Bld) 0.4 % Normal [facility] Eosinophils 0.14 10*3/uL Normal 0.00-0.45 [facility] Eosinophils/100 leukocytes 2.0 % Normal [facility] Erythrocyte distribution width Auto Ratio (RBC) 15.8 % High 11.5-15.0 [facility] Erythrocytes (RBC) 4.36 10*6/uL Normal 3.90-5.20 [facility] Hematocrit (HCT) 37.1 % Normal 36.0-46.0 [facility] Hemoglobin mass conc (Bld) 11.5 g/dL Normal 11.5-15.5 [facility] Lymphocytes 2.73 10*3/uL Normal 1.00-4.00 [facility] Lymphocytes/100 leukocytes 39.1 % Normal [facility] MCH 26.4 pG Normal 26.0-34.0 [facility] MCHC mass conc (RBC) 31.0 g/dL Normal 30.5-36.0 [facility] MCV 85.1 fL Normal 80.0-100.0 [facility] Monocytes/100 leukocytes 7.6 % Normal [facility] Neutrophils/100 WBC Auto (Bld) 50.9 % Normal [facility] Platelet mean volume (PMV) 9.7 fL Normal 9.0-12.7 [facility] Platelets 211 10*3/uL Normal 150-400 [facility] WBC (Leukocytes) 6.98 10*3/uL Normal 3.70-11.00 [facility] CNOVSPon 03-30-2017 CNOVSP Visit (SP) Office (HEMACL) -------DEANA CROFT ([id number]) 1970 FDate Time Provider Pyvgggepsk78/28/17 11:00 AM INJECTION JULITA MIKE HEMACL During your visit today, we recorded the following information about you: Temperature Pulse Respiration Blood pressure 98.5 degrees 61/minute 18/minute 130/71April Osbaldo 03/30/2017 11:13 AM SignedPatient Identification confirmed: yes.Injection given and documented on JUL per provider order.August OsbaldoReferring Provider: ELLEN SONG [[id number]]Allergies As of Date: 03/30/2017 Noted Allergy ReactionVENOFER (IRON SUCROSE) 03/05/2014 4 - Hives 7 - SwellingDate Reviewed: 03/30/2017Reviewed by: Doris Roblero - Fully AssessedPrimary Visit Diagnosis:Iron deficiency [E61.1]Order(s):[facility] [[id number]] Order #: [id number]: 1 STANDING [] cyanocobalamin 1,000 mcg injectionDisp: Rfl:Prescriptions as of 03/30/2017 Sig: CITALOPRAM 40 MG TABLET Take 40 mg by mouth once lauryn* ALPRAZOLAM 0.25 MG TABLET Take 0.25 mg by mouth at bedt* TRAMADOL 50 MG TABLET Take 50 mg by mouth as needed.Problem List As Of Date 03/30/2017 Noted Resolved Iron deficiency [E61.1] INVALID FOR* B12 deficiency [E53.8] INVALID FOR*Visit Notes:>> Doris Osbaldo WedMar 30, 2017 11:12 AM Status: SignedPatient Identification confirmed: yes.Injection given and documented on JUL per provider order.Doris Carrillo Status:Closed by OSBALDO DORIS on 03/30/17 [facility] CNOVSPon 03-01-2017 CNOVSP Visit (SP) Office (HEMACL) -------CROFTDEANA Cruz ([id number]) 1970 FDate Time Provider Rqzecixqld05/30/17 11:10 AM INJECTION JULITA MIKE HEMACL During your visit today, we recorded the following information about you:Doris Roblero 03/01/2017 11:22 AM SignedPatient Identification confirmed: yes.Injection given and documented on JUL per provider order.August OsbaldoReferring Provider: ELLEN SONG [[id number]]Allergies As of Date: 03/01/2017 Noted Allergy ReactionVENOFER (IRON SUCROSE) 03/05/2014 4 - Hives 7 - SwellingDate Reviewed: 05/20/2016Reviewed by: Bhavya Horan - Fully AssessedPrimary Visit Diagnosis:Iron deficiency [E61.1]Order(s):[facility] [[id number]] Order #: [id number]: 1 STANDING cyanocobalamin 1,000 mcg injectionDisp: Rfl:Prescriptions as of 03/01/2017 Sig: CITALOPRAM 40 MG TABLET Take 40 mg by mouth once lauryn* ALPRAZOLAM 0.25 MG TABLET Take 0.25 mg by mouth at bedt* TRAMADOL 50 MG TABLET Take 50 mg by mouth as needed.Problem List As Of Date 03/01/2017 Noted Resolved Iron deficiency [E61.1] INVALID FOR* B12 deficiency [E53.8] INVALID FOR*Visit Notes:>> August Osbaldo Mon Mar 01, 2017 11:22 AM Status: SignedPatient Identification confirmed: yes.Injection given and documented on JUL per provider order.Doris OsbaldoEncsushma Status:Closed by OSBALDO DORIS on 03/01/17 Normal [facility] Ferritinon 03-01-2017 Ferritin 16.8 ng/mL Normal 14.7-205.1 [facility] Comment on above: Performed By: #### I GORDON HAYDEN ####[facility] [place], [place] [phone] Iron and TIBCon 03-01-2017 Iron 46 ug/dL Normal 41-186 [facility] Comment on above: Performed By: #### I CATRACHO, FERR ####[facility] [address] [place], [place] [phone] TIBC 354 ug/dL Normal 232-386 [facility] Comment on above: Performed By: #### I CATRACHO, FERR ####[facility] [address] [place], [place] [phone] Transferrin Saturatn 13 % Low 15-57 [facility] Comment on above: Performed By: #### I CATRACHO, GORDON ####[facility] [place], [place] [phone] Remote CBCDIF (for [facility] use o nly)on 03-01-2017 Abs Baso <0.03 Normal 0.00-0.10 [facility] Abs Mcpherson 0.38 k/uL Normal 0.00-0.86 [facility] Abs Neut 2.47 k/uL Normal 1.45-7.50 [facility] Basophils/100 WBC Auto (Bld) 0.4 % Normal [facility] Eosinophils 0.11 10*3/uL Normal 0.00-0.45 [facility] Eosinophils/100 leukocytes 2.0 % Normal [facility] Erythrocyte distribution width Auto Ratio (RBC) 13.8 % Normal 11.5-15.0 [facility] Erythrocytes (RBC) 4.58 10*6/uL Normal 3.90-5.20 [facility] Hematocrit (HCT) 38.5 % Normal 36.0-46.0 [facility] Hemoglobin mass conc (Bld) 12.0 g/dL Normal 11.5-15.5 [facility] Lymphocytes 2.51 10*3/uL Normal 1.00-4.00 [facility] Lymphocytes/100 leukocytes 45.7 % Normal [facility] MCH 26.2 pG Normal 26.0-34.0 [facility] MCHC mass conc (RBC) 31.2 g/dL Normal 30.5-36.0 [facility] MCV 84.1 fL Normal 80.0-100.0 [facility] Monocytes/100 leukocytes 6.9 % Normal [facility] Neutrophils/100 WBC Auto (Bld) 45.0 % Normal [facility] Platelet mean volume (PMV) 9.7 fL Normal 9.0-12.7 [facility] Platelets 233 10*3/uL Normal 150-400 [facility] WBC (Leukocytes) 5.49 10*3/uL Normal 3.70-11.00 [facility] Vital Signs Date Time Vital Sign Value Performing Clinician Facility 11-20-2024 12:31-0400 Body mass index (BMI) [Ratio] 32.28 kg/m2 Summer Workman PA Work Phone: [facility] 11-20-2024 12:31-0400 Body temperature 97.5 [degF] Summer Workman PA Work Phone: [facility] 11-20-2024 12:31-0400 Body weight 90.72 kg Virtual Computer Workman PA Work Phone: [facility] 11-20-2024 12:31-0400 Diastolic blood pressure 84 mm[Hg] Summer Workman PA Work Phone: [facility] 11-20-2024 12:31-0400 Heart rate 94 /min [employer] Workman PA Work Phone: [facility] 11-20-2024 12:31-0400 SaO2% (BldA) [Mass fraction] 99 % Summer Workman PA Work Phone: [facility] 11-20-2024 12:31-0400 Systolic blood pressure 128 mm[Hg] Summer Workman PA Work Phone: [facility] 09-12-2024 13:08-0400 Body height 167.6 cm [employer] Workman PA Work Phone: [facility] 09-12-2024 13:08-0400 Body mass index (BMI) [Ratio] 35.99 kg/m2 [employer] Lanternman PA Work Phone: [facility] 09-12-2024 13:08-0400 Body weight 101.15 kg Summer Workman PA Work Phone: [facility] 09-12-2024 13:08-0400 Diastolic blood pressure 72 mm[Hg] Summer Workman PA Work Phone: [facility] 09-12-2024 13:08-0400 Heart rate 69 /min Summer Workman PA Work Phone: [facility] 09-12-2024 13:08-0400 SaO2% (BldA) [Mass fraction] 97 % Summer Workman PA Work Phone: [facility] 09-12-2024 13:08-0400 Systolic blood pressure 130 mm[Hg] Summer Workman PA Work Phone: [facility] 05-04-2024 10:23-0500 Body height 167.6 cm Joey Daniel MD Work Phone: [facility] 05-04-2024 10:23-0500 Body mass index (BMI) [Ratio] 35.51 kg/m2 Joey Daniel MD Work Phone: [facility] 05-04-2024 10:23-0500 Body weight 99.79 kg Joey Daniel MD Work Phone: [facility] 05-04-2024 10:23-0500 Diastolic blood pressure 82 mm[Hg] Joey Daniel MD Work Phone: [facility] 05-04-2024 10:23-0500 Heart rate 71 /min Joey Daniel MD Work Phone: [facility] 05-04-2024 10:23-0500 SaO2% (BldA) [Mass fraction] 97 % Joey Daniel MD Work Phone: [facility] 05-04-2024 10:23-0500 Systolic blood pressure 140 mm[Hg] Joey Daniel MD Work Phone: [facility] 01-19-2024 13:55-0400 Body height 167.6 cm Vinny Huff DO Work Phone: [facility] 01-19-2024 13:55-0400 Body mass index (BMI) [Ratio] 34.06 kg/m2 Vinny Huff DO Work Phone: [facility] 01-19-2024 13:55-0400 Body weight 95.71 kg Vinny Huff DO Work Phone: [facility] 01-11-2024 10:19-0400 Body height 167.6 cm Summer Workman PA Work Phone: [facility] 01-11-2024 10:19-0400 Body mass index (BMI) [Ratio] 34.06 kg/m2 Summer Workman PA Work Phone: [facility] 01-11-2024 10:19-0400 Body weight 95.71 kg Summer Workman PA Work Phone: [facility] 01-11-2024 10:19-0400 Diastolic blood pressure 70 mm[Hg] Summer Workman PA Work Phone: [facility] 01-11-2024 10:19-0400 Heart rate 76 /min Summer Workman PA Work Phone: [facility] 01-11-2024 10:19-0400 SaO2% (BldA) [Mass fraction] 97 % Summer Workman PA Work Phone: [facility] 01-11-2024 10:19-0400 Systolic blood pressure 112 mm[Hg] Summer Workman PA Work Phone: [facility] 12-06-2023 13:47-0400 Diastolic blood pressure 76 mm[Hg] MD Joey Daniel Work Phone: [facility] 12-06-2023 13:47-0400 Heart rate 73 /min MD Joey Daniel Work Phone: [facility] 12-06-2023 13:47-0400 Respiratory rate 16 /min MD Joey Daniel Work Phone: [facility] 12-06-2023 13:47-0400 SaO2% (BldA) [Mass fraction] 93 % MD Joey Daniel Work Phone: [facility] 12-06-2023 13:47-0400 Systolic blood pressure 115 mm[Hg] MD Joey Daniel Work Phone: [facility] 12-06-2023 10:39-0400 Body temperature 97.4 [degF] MD Joey Daniel Work Phone: [facility] 12-06-2023 10:14-0400 Inhaled oxygen flow rate 3 L/min MD Joey Daniel Work Phone: [facility] 12-06-2023 07:20-0400 Body height 167.64 cm MD Joey Daniel Work Phone: [facility] 12-06-2023 07:20-0400 Body mass index (BMI) [Ratio] 33.9 kg/m2 MD Joey Daniel Work Phone: [facility] 12-06-2023 07:20-0400 Body weight 95.25 kg MD Joey Daniel Work Phone: [facility] 08-14-2021 13:45-0400 Body mass index (BMI) [Ratio] 30.84 kg/m2 Joey Daniel Work Phone: WF-Xykfximjq-Rnmwo ll 5th Work Phone: 08-14-2021 13:45-0400 Body surface area Derived from formula 1.99 m2 Joey Daniel Work Phone: XJ-Qvbmfuris-Djpfc ll 5th Work Phone: 08-14-2021 13:45-0400 Body weight 88 kg Joey Daniel Work Phone: IR-Kfnazzuvr-Tqwph ll 5th Work Phone: 08-14-2021 13:45-0400 Diastolic blood pressure 74 mm[Hg] Joey Daniel Work Phone: ZU-Gdqhenveo-Ydbgy ll 5th Work Phone: 08-14-2021 13:45-0400 Systolic blood pressure 126 mm[Hg] Joey Daniel Work Phone: PL-Snrlbpgxf-Cjojn ll 5th Work Phone: 07-31-2021 04:06-0400 Body temperature 37.0 {degrees_C} Joey Daniel Work Phone: OF-Llbkjujuz-Kzcyf 5th Work Phone: Comment on above: NOTE: PATIENT RESULTS ARE NOT CORRECTED FOR TEMPERATURE. 07-24-2021 14:00-0400 Body temperature 98.6 [degF] Joey Daniel Other Phone: [facility] 07-24-2021 14:00-0400 Diastolic blood pressure 73 mm[Hg] Joey Jorden Other Phone: [facility] 07-24-2021 14:00-0400 Heart rate 89 /min Joey Daniel Other Phone: [facility] 07-24-2021 14:00-0400 Respiratory rate 20 /min Joey Jorden Other Phone: [facility] 07-24-2021 14:00-0400 SaO2% (BldA) [Mass fraction] 95 % Joey Jorden Other Phone: [facility] 07-24-2021 14:00-0400 Systolic blood pressure 114 mm[Hg] Joey Jorden Other Phone: [facility] 07-21-2021 15:02-0400 Body temperature 37.0 {degrees_C} Joey Daniel Work Phone: SP-Aydquopiqshv-CE [facility] Work Phone: Comment on above: NOTE: PATIENT RESULTS ARE NOT CORRECTED FOR TEMPERATURE. 07-21-2021 15:02-0400 SaO2% (BldA) [Mass fraction] 95 % Joey Daniel Work Phone: ET-Xhmypfyomgks-UP [facility] Work Phone: 07-21-2021 14:05-0400 Body temperature 37.0 {degrees_C} Joey Daniel Work Phone: VV-Klgqtubtxrrs-IM [facility] Work Phone: Comment on above: NOTE: PATIENT RESULTS ARE NOT CORRECTED FOR TEMPERATURE. 07-21-2021 14:05-0400 SaO2% (BldA) [Mass fraction] 96 % Joey Daniel Work Phone: PX-Sqnthxaisvfe-RA [facility] Work Phone: 07-21-2021 12:06-0400 Body temperature 37.0 {degrees_C} Joey Daniel Work Phone: QL-Elzeyjydnfby-NL [facility] Work Phone: Comment on above: NOTE: PATIENT RESULTS ARE NOT CORRECTED FOR TEMPERATURE. 07-21-2021 12:06-0400 SaO2% (BldA) [Mass fraction] 95 % Joey Daniel Work Phone: SH-Nuydaiustqdy-VR [facility] Work Phone: 05-15-2021 10:40-0500 Body height 168.91 cm Joey Daniel Work Phone: IF-Xhtnvfgxzflv-MG [facility] Work Phone: 05-15-2021 10:40-0500 Body mass index (BMI) [Ratio] 30.21 kg/m2 Joey Daniel Work Phone: CB-Genueiafycgx-VV [facility] Work Phone: 05-15-2021 10:40-0500 Body surface area Derived from formula 1.97 m2 Joey Daniel Work Phone: EL-Yuekxovrdtrb-FN [facility] Work Phone: 05-15-2021 10:40-0500 Body weight 86.18 kg Joey Daniel Work Phone: WQ-Fmngrnkoxgoe-MO [facility] Work Phone: 05-15-2021 10:40-0500 Diastolic blood pressure 66 mm[Hg] Joey Daniel Work Phone: WA-Lgfvehslclju-TI [facility] Work Phone: 05-15-2021 10:40-0500 Heart rate 101 /min Joey Daniel Work Phone: PX-Xwifhvuekbnw-GD [facility] Work Phone: 05-15-2021 10:40-0500 Respiratory rate 18 /min Joey Daniel Work Phone: LL-Rffqknccfulp-OL [facility] Work Phone: 05-15-2021 10:40-0500 Systolic blood pressure 102 mm[Hg] Joey Daniel Work Phone: RJ-Wrubrljevcxi-VP [facility] Work Phone: Encounters Encounter Date Encounter Type Care Provider Facility Start: 01-15-2025 End: 01-15-2025 Clinisync Result Encounter Generic External Data Provider [facility] External Department Unsolicited Start: 01-15-2025 End: 01-15-2025 Clinisync Result Encounter Generic External Data Provider [facility] External Department Unsolicited Start: 01-04-2025 End: 01-05-2025 Refill [facility]as [facility] Comment on above: Chronic bilateral lo w back pain without sciatica Start: 12-25-2024 End: 12-26-2024 Refill Joey Daniel MD [facility] Comment on above: Chronic bilateral lo w back pain without sciatica Start: 12-04-2024 End: 12-04-2024 Refill Joey Daniel MD [facility] Comment on above: Chronic bilateral lo w back pain without sciatica Start: 11-20-2024 End: 11-20-2024 Office outpatient visit 15 minutes summer Workman PA Work Phone: [facility] Comment on above: Rhus dermatitis (Kae rodgers Dx) Start: 11-20-2024 End: 11-20-2024 ambulatory SUMMER M WORKMAN Not Available Start: 11-05-2024 End: 11-06-2024 Refill Joey Daniel MD [facility] Comment on above: Generalized anxiety disorder ; Chronic bilateral low back pain without sciatica Start: 10-05-2024 End: 10-05-2024 Refill Joey Daniel MD Work Phone: [facility] Comment on above: Chronic bilateral lo w back pain without sciatica Start: 09-19-2024 End: 09-20-2024 Refill Joey Daniel MD Work Phone: [facility] Comment on above: Chronic bilateral lo w back pain without sciatica Start: 09-12-2024 End: 09-12-2024 ambulatory summer WORKMAN Not Available Start: 09-12-2024 End: 09-12-2024 Office outpatient visit 25 minutes summer Workman SUZANNA Work Phone: [facility] Comment on above: Generalized anxiety disorder (CMS/HCC) (Primary Dx); Chronic bilateral low back pain without sciatica; Primary insomnia; Iron deficiency anemia secondary to inadequate dietary iron intake; Hyperparathyroidism (CMS/HCC); Alkaline phosphatase raised; Other osteoporosis without current pathological fracture; S/P biliopancreatic diversion with duodenal switch; Vitamin A deficiency; Vitamin D deficiency; Vitamin E deficiency; Vitamin K deficiency; Encounter for screening mammogram for malignant neoplasm of breast Start: 09-06-2024 End: 09-07-2024 Refill Joey Daniel MD Work Phone: [facility] Comment on above: Chronic bilateral lo w back pain without sciatica Start: 08-29-2024 End: 08-29-2024 Clinisync Result Encounter Joey Daniel MD Work Phone: [facility] External Department Unsolicited Start: 08-29-2024 End: 08-29-2024 Clinisync Result Encounter Joey Daniel MD Work Phone: [facility] External Department Unsolicited Start: 08-14-2024 End: 08-15-2024 Refill Joey Daniel MD Work Phone: [facility] Comment on above: Chronic bilateral lo w back pain without sciatica Start: 08-08-2024 End: 08-08-2024 Refill Joey Daniel MD Work Phone: [facility] Comment on above: Chronic bilateral lo w back pain without sciatica Start: 07-11-2024 End: 07-11-2024 ambulatory JOEY DANIEL Not Available Start: 06-26-2024 End: 06-26-2024 Refill Joey Daniel MD Work Phone: [facility] Comment on above: Generalized anxiety disorder (CMS/HCC); Chronic bilateral low back pain without sciatica Start: 06-09-2024 End: 06-09-2024 Refill Joey Daniel MD Work Phone: [facility] Comment on above: Chronic bilateral lo w back pain without sciatica Start: 05-25-2024 End: 05-25-2024 Refill Joey Daniel MD Work Phone: [facility] Comment on above: Chronic pansinusitis ; Generalized anxiety disorder (CMS/HCC); Chronic bilateral low back pain without sciatica Start: 05-11-2024 End: 05-12-2024 Refill Joey Daniel MD Work Phone: [facility] Comment on above: Chronic bilateral lo w back pain without sciatica Start: 05-04-2024 End: 05-04-2024 ambulatory JOEY DANIEL Not Available Start: 05-04-2024 End: 05-04-2024 Office outpatient visit 25 minutes Joey Daniel MD Work Phone: [facility] Comment on above: Generalized anxiety disorder (CMS/HCC) (Primary Dx); Chronic bilateral low back pain without sciatica; Primary insomnia; Hyperparathyroidism (CMS/HCC); Iron deficiency anemia secondary to inadequate dietary iron intake; Hydronephrosis, unspecified hydronephrosis type; Alkaline phosphatase raised; Vitamin D deficiency; Vitamin K deficiency; Vitamin E deficiency; Vitamin A deficiency; Need for immunization against influenza; Lipid screening Start: 05-01-2024 End: 05-02-2024 Refill Val Nelson NP Work Phone: [facility] Comment on above: Chronic bilateral lo w back pain without sciatica Start: 04-17-2024 End: 04-20-2024 Orders Only oJey Daniel MD Work Phone: [facility] External Department Unsolicited Start: 04-11-2024 End: 04-13-2024 Refill Val Nelson SQL DATABASE PROGRAMMER Work Phone: [facility] Comment on above: Chronic bilateral lo w back pain without sciatica Start: 03-10-2024 End: 03-10-2024 Refill Joey Daniel MD Work Phone: [facility] Comment on above: Generalized anxiety disorder (CMS/HCC) Chronic bilateral lo w back pain without sciatica Start: 02-11-2024 End: 02-11-2024 Refill Joey Daniel MD Work Phone: [facility] Comment on above: Generalized anxiety disorder (CMS/HCC); Chronic bilateral low back pain without sciatica Chronic bilateral lo w back pain without sciatica Start: 01-19-2024 End: 01-19-2024 Bamboo flowsheet Vinny Huff DO Work Phone: [facility] [place] Start: 01-19-2024 End: 01-19-2024 Bamboo flowsheet Vinny Huff DO Work Phone: [facility] [place] Start: 01-19-2024 End: 01-19-2024 Postop follow up visit related to original px Vinny Huff DO Work Phone: [facility] [place] Comment on above: History of parathyro idectomy (Primary Dx) Start: 01-19-2024 End: 01-19-2024 ambulatory VINNY HUFF Not Available Start: 01-11-2024 End: 01-12-2024 Orders Only Val Nelson SQL DATABASE PROGRAMMER Work Phone: [facility] External Department Unsolicited Start: 01-11-2024 End: 01-13-2024 Telephone encounter Summer M Workman PA Work Phone: [facility] Start: 01-11-2024 End: 01-11-2024 ambulatory SUMMER M WORKMAN Not Available Start: 01-11-2024 End: 01-11-2024 Office outpatient visit 25 minutes Summer M Workman PA Work Phone: [facility] Comment on above: Chronic bilateral lo w back pain without sciatica (Primary Dx); Generalized anxiety disorder (CMS/HCC); Hyperparathyroidism (CMS/HCC); Local skin infection Start: 01-10-2024 End: 01-10-2024 Refflorina Daniel MD Work Phone: [facility] Comment on above: Rash; Chronic pansinusitis; Chronic bilateral low back pain without sciatica Start: 01-06-2024 End: 01-06-2024 Refill Joey Daniel MD Work Phone: [facility] Comment on above: Chronic bilateral lo w back pain without sciatica Start: 12-14-2023 End: 12-14-2023 ambulatory VINNY HUFF Not Available Start: 12-13-2023 End: 12-13-2023 Patient encounter procedure MD Joey Daniel Work Phone: [facility] [place] Work Phone: Start: 12-13-2023 End: 12-13-2023 ambulatory MD Joey Daniel Work Phone: [facility] Work Phone: Start: 12-06-2023 End: 12-06-2023 ambulatory VINNY HUFF Not Available Start: 12-06-2023 End: 12-06-2023 Admission to same day surgery center MD Joey Daniel Work Phone: [facility] [place] Start: 12-06-2023 End: 12-06-2023 ambulatory MD Joey Daniel Work Phone: [facility] Work Phone: Start: 11-12-2023 End: 11-12-2023 Patient encounter procedure MD Joey Daniel Work Phone: [facility] Work Phone: Start: 11-12-2023 End: 11-12-2023 ambulatory MD Joey Daniel Work Phone: [facility] Work Phone: Start: 11-12-2023 Encounter for prepro cedural laboratory examination Vinny Huff [facility] Start: 10-27-2023 End: 10-27-2023 Patient encounter procedure MD Joey Daniel Work Phone: [facility] [place] Work Phone: Start: 10-27-2023 End: 10-27-2023 ambulatory MD Joey Daniel Work Phone: [facility] Work Phone: Start: 09-28-2023 End: 09-28-2023 Patient encounter procedure MD Joey Daniel Work Phone: [facility] [place] Work Phone: Start: 09-28-2023 End: 09-28-2023 ambulatory MD Joey Daniel Work Phone: [facility] Work Phone: Start: 08-21-2021 Chart Update Jeoy Daniel Work Phone: [facility] Work Phone: Start: 08-14-2021 Postop follow up vis it related to original px Joey Daniel Work Phone: [facility] Work Phone: Start: 08-14-2021 ambulatory Joey Daniel Facil ity:[facility] Start: 07-30-2021 End: 07-31-[address] TRI AWAD Facility:[facility] Start: 07-24-2021 Chart Update Joey Daniel Work Phone: [facility] Work Phone: Start: 07-21-2021 End: 07-24-2021 Evaluation and management of inpatient [facility] [id number] R[place] [id number] Start: 07-11-[address] TRI AWAD Facility:[facility] Start: 07-11-2021 Encounter for blood typing Dr. TRI AWAD [facility] Start: 07-11-2021 Encounter for prepro cedural laboratory examination Dr. TRI AWAD [facility] Start: 06-17-[address] JOEY DANIEL Facility :[facility] Start: 05-22-2021 Chart Update Joey Daniel Work Phone: [facility]cub[facility]isk[facility]HLDZW Work Phone: Start: 05-15-2021 Office outpatient ne w 45 minutes Joey Daniel Work Phone: [facility]Jlbdbcnhdmfm-DYEGR Work Phone: Start: 05-15-2021 ambulatory PCP UNKNOWN Facility:U Start: 05-08-[address] TRI AWAD Facility:[facility] Start: 04-30-2021 End: 04-30-[address] JOEY DANIEL Facility: Start: 11-19-2020 End: 11-20-[address] JOEY DANIEL Facility: Start: 05-27-2017 End: 05-28-2017 Ambulatory RONI COON [facility] Start: 03-30-2017 End: 03-31-2017 Ambulatory ELLEN SONG [facility] Start: 03-02-2017 Ambulatory ELLEN SONG [facility] Start: 03-01-2017 End: 03-02-2017 Ambulatory ELLEN SONG [facility] Procedures Date Procedure Procedure Detail Performing Clinician Start: 01-15-2025 [facility] CMP (CMP) (FOR [facility] USE) Generic External Data Provider Start: 08-29-2024 ALL CBC WITH AUTO DIFF Joey Daniel MD Work Phone: Start: 04-17-2024 Comprehensive metabo lic panel Joey Daniel MD Work Phone: Start: 04-17-2024 SPECIMEN STATUS REPORT Joey Daniel MD Work Phone: Start: 01-11-2024 Antinuclear antibodi es segun Val Nelson SQL DATABASE PROGRAMMER Work Phone: Start: 01-11-2024 Elctrophoretic techn ique not elsewhere specified Val Nelson SQL DATABASE PROGRAMMER Work Phone: Start: 12-06-2023 Lobectomy of thyroid gland MD Joey Daniel Work Phone: Start: 10-27-2023 Single photon emissi on computed tomography of parathyroid MD Joey Daniel Work Phone: Start: 09-16-2023 Mammography Joey funez MD Work Phone: Start: 11-27-2022 History of gastrointestinal tract bypass S/P biliopancreatic diversion with duodenal switch Joey Daniel MD Work Phone: Start: 09-23-2021 Colonoscopy Joey funez MD Work Phone: Start: 07-31-[address] TAMMY AWAD Comment on above: Performed By: #### U RINC #### [facility] [id number] [place] [address] Start: 07-21-[address] TAMMY AWAD Comment on above: Order Comment: TEST TYPE + SCREEN WAS CANCELLED, 07/21/2021 14:41 Accession error. Performed By: #### C OAGS #### [facility] [address] [place] [address] Start: 07-20-[address] TAMMY AWAD Comment on above: Performed By: #### S TAPH #### [facility] [address] [place] [address] Start: 07-11-[address] TAMMY AWAD Comment on above: Performed By: #### C OAGS #### [facility] [address] [place] [address] Start: 05-15-[address] TAMMY AWAD Comment on above: Performed By: #### S TAPH #### [facility] [address] [place] [address] Start: 03-11-2021 Microscopic observat ion [Identifier] in Cervix by Cyto stain Joey Daniel MD Work Phone: Esophagogastrostomy, antesternal or antethoracic Joey Daniel Work Phone: Comment on above: 2001; History of gastrointestinal tract bypass S/P biliopancreatic diversion with duodenal switch Charles M Workman SUZANNA Work Phone: Laminectomy Joey Daniel Work Phone: Comment on above: 07/21/21; Lithotripsy Joey Daniel Work Phone: Lumbar spinal fusion Joey Daniel Work Phone: Comment on above: 07/21/21; Plan of Treatment Date Care Activity Detail Author Start: 09-24-2031 Screening for malignant neoplasm of colon [facility] Start: 03-11-2025 Screening for malignant neoplasm of colon FIT-DNA [facility] Start: 02-15-2025 End: 02-15-2025 Professional / ancillary services management 02/15/2025 1:30 PM EDT Ancillary Procedure [facility] [address] [place] [address] [facility] Start: 01-16-2025 End: 01-16-2025 Patient encounter procedure 01/16/2025 2:30 PM EDT Office Visit [facility] [address] [place] [phone] [facility] Start: 01-01-2025 Influenza vaccination Influenza Vaccine (#1) [facility] Start: 12-19-2024 End: 12-19-[address] [facility] Start: 12-13-2024 End: 03-15-2025 Comprehensive metabolic 2000 panel - Serum or Plasma Comprehensive metabolic panel Lab Routine Alkaline phosphatase raised Expected: 12/13/2024 (Approximate), Expires: 03/15/2025 [facility] Work Phone: Comment on above: Expected: 12/13/2024 (Approximate), Expi res: 03/15/2025 Start: 12-13-2024 End: 03-15-2025 Vitamin A Vitamin A Lab Routine Vitamin A deficiency Expected: 12/13/2024 (Approximate), Expires: 03/15/2025 [facility] Comment on above: Expected: 12/13/2024 (Approximate), Expi res: 03/15/2025 Start: 09-15-2024 Screening for malignant neoplasm of breast Mammogram [facility] Start: 09-12-2024 End: 09-12-2024 Patient encounter procedure 09/12/2024 1:00 PM EDT Office Visit [facility] [address] [place] [address] Charles Decker PA [address] [place] [address] [facility] Start: 08-14-2024 End: 08-14-2024 Patient encounter procedure 08/14/2024 10:45 AM EDT Office Visit [facility] [address] [place] [phone] Val Nelson, SQL DATABASE PROGRAMMER [address] [place] [address] [facility] Start: 08-02-2024 End: 11-01-2024 25-hydroxyvitamin D3 [Mass/volume] in Serum or Plasma Vitamin D 25 hydroxy Total Lab Routine Vitamin D deficiency Expected: 08/02/2024 (Approximate), Expires: 11/01/2024 [facility] Comment on above: Expected: 08/02/2024 (Approximate), Expi res: 11/01/2024 Start: 08-02-2024 End: 11-01-2024 CBC W Auto Differential panel - Blood CBC and differential Lab Routine Iron deficiency anemia secondary to inadequate dietary iron intake Expected: 08/02/2024 (Approximate), Expires: 11/01/2024 [facility] Work Phone: Comment on above: Expected: 08/02/2024 (Approximate), Expi res: 11/01/2024 Start: 08-02-2024 End: 11-01-2024 Comprehensive metabolic 2000 panel - Serum or Plasma Comprehensive metabolic panel Lab Routine Alkaline phosphatase raised Expected: 08/02/2024 (Approximate), Expires: 11/01/2024 [facility] Comment on above: Expected: 08/02/2024 (Approximate), Expi res: 11/01/2024 Start: 08-02-2024 End: 11-01-2024 Lipid 1996 panel - Serum or Plasma Lipid panel Lab Routine Lipid screening Expected: 08/02/2024 (Approximate), Expires: 11/01/2024 [facility] Comment on above: Expected: 08/02/2024 (Approximate), Expi res: 11/01/2024 Start: 08-02-2024 End: 11-01-2024 Protein, total and protein electrophoresis with immunofixation Protein, total and protein electrophoresis with immunofixation Lab Routine Iron deficiency anemia secondary to inadequate dietary iron intake Expected: 08/02/2024 (Approximate), Expires: 11/01/2024 [facility] Comment on above: Expected: 08/02/2024 (Approximate), Expi res: 11/01/2024 Start: 08-02-2024 End: 11-01-2024 Thyroid stimulating immunoglobulins actual/normal in Serum Immunoglobulin free LT chains blood Lab Routine Iron deficiency anemia secondary to inadequate dietary iron intake Expected: 08/02/2024 (Approximate), Expires: 11/01/2024 [facility] Comment on above: Expected: 08/02/2024 (Approximate), Expi res: 11/01/2024 Start: 08-02-2024 End: 11-01-2024 Vitamin A Vitamin A Lab Routine Vitamin A deficiency Expected: 08/02/2024 (Approximate), Expires: 11/01/2024 [facility] Comment on above: Expected: 08/02/2024 (Approximate), Expi res: 11/01/2024 Start: 08-02-2024 End: 11-01-2024 Vitamin E Vitamin E Lab Routine Vitamin E deficiency Expected: 08/02/2024 (Approximate), Expires: 11/01/2024 [facility] Comment on above: Expected: 08/02/2024 (Approximate), Expi res: 11/01/2024 Start: 05-16-2024 End: 05-16-2024 Patient encounter procedure 05/16/2024 9:45 AM EST Office Visit [facility] [address] [place] [address] Joey Daniel MD [address] [place] [address] [facility] Start: 05-08-2024 End: 05-08-2024 Patient encounter procedure 05/08/2024 3:15 PM EST Office Visit [facility] [place] [address] [place] [address] Vinny Huff, [address] [address] [facility] [place] Start: 05-04-2024 End: 08-02-2024 US Kidney US renal complete Imaging Routine Hydronephrosis, unspecified hydronephrosis type Expected: 05/04/2024 (Approximate), Expires: 08/02/2024 [facility] Comment on above: Expected: 05/04/2024 (Approximate), Expi res: 08/02/2024 Start: 05-04-2024 End: 05-04-2025 Vitamin K Vitamin K Lab Routine Vitamin K deficiency Expected: 05/04/2024 (Approximate), Expires: 05/04/2025 [facility] Comment on above: Expected: 05/04/2024 (Approximate), Expi res: 05/04/2025 Start: 05-04-2024 End: 05-04-2024 Patient encounter procedure 05/04/2024 10:15 AM EST Office Visit [facility] [address] [place] [phone] Joey Daniel MD [address] [place] [address] [facility] Start: 04-19-2024 End: 04-19-2024 Patient encounter procedure [facility] [place] Start: 03-11-2024 Screening for malignant neoplasm of cervix [facility] Start: 01-19-2024 End: 01-19-2024 Patient encounter procedure [facility] [place] Comment on above: Arrived Start: 01-11-2024 End: 01-11-2024 Patient encounter procedure 01/11/2024 10:15 AM EDT Office Visit [facility] [address] [place] [phone] Charles Decker PA [address] [place] [address] [facility] Start: 01-02-2024 Influenza vaccination Influenza Vaccine (#1) [facility] Start: 12-06-2023 [facility] Start: 12-06-2023 [facility] Start: 09-28-2023 Serum vitamin K measurement [facility] Start: 09-18-2021 Patient encounter procedure [facility] Start: 09-18-2021 POV, Provider: Tri Awad, Status: Pen, Time: 1:00 PM POV, Provider: Tri Awad, Status: Pen, Time: 1:00 PM DP-Yxoarshyzmhe-YZHRE Work Phone: Start: 08-14-2021 Patient encounter procedure [facility] Start: 08-14-2021 POV, Provider: Tri Awad, Status: Pen, Time: 1:45 PM POV, Provider: Tri Awad, Status: Pen, Time: 1:45 PM [facility] Work Phone: Start: 07-23-2021 End: 07-24-2022 Bisacodyl Rectal 10 mg Suppository Once ; Suppository (DULCOLAX)DOSE = 10 mg Rectal Once Start: 23-Jul-2021 End: 23-Jul-2022 Ordered: 23-Jul-2021 Perri Hadley [facility] Start: 07-23-2021 End: 07-24-2022 Bisacodyl Rectal 10 mg Suppository Daily PRN ; Suppository (DULCOLAX)DOSE = 10 mg Rectal Daily, PRN if no BM in the previous 36 hoursClinician Notes: once now and daily PRN Start: 23-Jul-2021 End: 23-Jul-2022 Ordered: 23-Jul-2021 Susanne, Bong R Intent Comments: once now and daily PRN [facility] Comment on above: once now and daily PRN Start: 07-22-2021 End: 07-23-2022 [facility] Start: 07-21-2021 End: 07-22-2022 [facility] Comment on above: now and daily PRN Start: 06-26-2021 POV, Provider: Tri Awad, Status: Pen, Time: 1:30 PM POV, Provider: Tri Awad, Status: Pen, Time: 1:30 PM [facility]Lfvm[facility]ughfp[facility]WJSKX Work Phone: Start: 06-02-2021 [facility], Provider: Tri Awad, Status: Pen, Time: 7:00 [facility]: Tri Awad, Status: Pen, Time: 7:[address]-Hofbmggpjxur-CLVRD Work Phone: Start: 10-13-1999 Screening for malignant neoplasm of cervix HPV/Cotest [facility] Start: 1970 Screening for malignant neoplasm of colon [facility] DBT Breast - bilater al screening Bilateral screening mammogram with tomosynthesis Imaging Routine Encounter for screening mammogram for malignant neoplasm of breast Ordered: 09/12/2024 [facility] Comment on above: Ordered: 09/12/2024 Patient Education Know your Meds [facility] Work Phone: Patient referral [facility] Work Phone: Immunizations Immunization Date Immunization Notes Care Provider Fa chaparroty 05-04-2024 Influenza, Madin Ori by Canine Kidney, subunit, trivalent, injectable, contains preservative Joey Daniel MD Work Phone: [facility] 05-04-2024 influenza virus vaccine, unspecified formulation Joey Daniel MD Work Phone: [facility] 03-08-2023 Influenza, injectabl e, Madin Woodland Canine Kidney, preservative free, quadrivalent Joey Daniel MD Work Phone: [facility] 03-08-2023 influenza virus vaccine, unspecified formulation Joey Daniel MD Work Phone: [facility] 01-28-2022 Influenza, injectabl e, Madin [place] Canine Kidney, preservative free, quadrivalent Joey Daniel MD Work Phone: [facility] 02-24-2021 Influenza, injectabl e, Madin Elisa Canine Kidney, preservative free, quadrivalent Joey Daniel MD Work Phone: [facility] 08-22-2020 COVID-19 mRNA-1273 (Moderna) [facility] 07-25-2020 COVID-19 mRNA-1273 (Moderna) [facility] 04-09-2020 Influenza, injectabl e, Madin Elisa Canine Kidney, preservative free, quadrivalent Joey Daniel MD Work Phone: [facility] 01-18-2019 Influenza, injectabl e, Madin [place] Canine Kidney, quadrivalent with preservative Joey Daniel MD Work Phone: [facility] Payers Date Payer Category Payer Medicaid [employer] [place] [id number] 2014-Present [address] [place] [id number] 2014 Medicaid (Managed Care) [facility] MEDICAID [id number] 1969 Unknown [id number] 2.16.840.1.430589.3.579.2. 593 1969 Unknown [id number] 16.840.1.045775.3.579.2. 593 1969 Unknown [id number] 2.16.840.1.804450.3.579.2. 593 1969 Unknown [id number] 2.16.840.1.515481.3.579.2. 356 1969 Unknown [id number] 2.16.840.1.811919.3.579.2. 356 1969 Unknown [id number] 2.16.840.1.814330.3.579.2. 356 1969 Unknown [id number] 2.16.840.1.737173.3.579.2. 356 1969 Unknown [id number] 2.16.840.1.334683.3.579.2. 356 1969 Unknown [id number] 2.16840.1.845177.3.579.2. 356 1969 Unknown [id number] 2.16.840.1.589608.3.579.2. 356 1969 Unknown [id number] 2.16.840.1.023823.3.579.2. 1258 1969 Unknown [id number] 2.16.840.1.961567.3.579.2. 1258 1969 Unknown [id number] 2.16.840.1.015782.3.579.2. 1258 1969 Unknown [id number] 2.16.840.1.433677.3.579.2. 1258 1969 Unknown [id number] 2.16.840.1.265439.3.579.2. 1258 1969 Unknown [id number] 2.16.840.1.907113.3.579.2. 1258 1969 Unknown [id number] 2.16.840.1.406202.3.579.2. 1258 1969 Unknown [id number] 2.16.840.1.103072.3.579.2. 1259 1959 Self-pay 1959 Unknown [id number] Unknown Unknown [id number] 2.16.840.1.985204.3.579.2. 531 Unknown [id number] 2.16.840.1.663980.3.579.2. 531 Unknown [id number] 2.16.840.1.272410.3.579.2. 531 Unknown [id number] 2.16.840.1.999079.3.579.2. 531 Unknown [id number] 2.16.840.1.298406.3.579.2. 531 Social History Date Type Detail Facility Start: 01-11-2024 End: 01-19-2024 No illicit drug use No illicit drug use [facility]-Zqsznbvhlqhj-KKOR C Work Phone: Tobacco smoking consumption unknown [facility] Start: 1970 Sex Assigned At Female F [facility] Start: 10-06-2021 End: 11-23-2022 Tobacco smoking status NHIS Never smoked tobacco (finding) [facility] Start: 11-23-2022 Tobacco use and exposure Smokeless tobacco non-user [facility] Start: 01-19-2024 End: 11-20-2024 Alcoholic beverage intake Lifetime non-drinker (finding) [facility] Start: 01-11-2024 End: 01-19-2024 Tobacco use panel [facility] Start: 03-08-2023 Alcohol Comment caffeine- Diet Pop, 4 cans daily. 1 cups of coffee per week [facility] Start: 1970 Sex assigned at Not on file [facility] Goals Date Patient Goal Desired Activity /State Functional Status Date Assessment Result Facility Functional observable [facility] Mental Status Date Assessment Result Facility 07-22-2021 Cognitive functi ons [id number] [facility] Clinical Notes 07-05-2021 to 12-26-2024 Telephone Encounter - Alyssa Ybarra LPN - 12/26/2024 8:06 AM EDTTelephone Encounter - Alyssa Ybarra LPN - 12/26/2024 8:06 AM EDTSSUZANNA Dickerson - 11/20/2024 12:30 PM EDT<item> Note Date & Type Note Facility 12-26-2024 Telephone encounter Note Pt is requesting a refill on Pregabalin to [facility] in [place]. Confirmed dosage and directions with last office visit [facility] 12-26-2024 Miscellaneous Notes Pt is requesting a refill on Pregabalin to [facility] in [place]. Confirmed dosage and directions with last office visit documented in this encounter [facility] 11-20-2024 History of Present illness Narrative Images from the original note were not included. [address] , [address] [facility], [address] P: [phone] F: [phone] HPI Historian of HPI: patient Deana Croft is a 54 y.o. female who presents today to the Urgent Care with the following complaints and denials which have been present for 3 day(s) C/O Denies Symptom Comments [] [x] Lesion [x] [] Rash [] [x] Lump [x] [] Bump [] [x] Depression [] [x] abscess [] [x] cellulitis [x] [] itching [] [x] pain [x] [] burning [] [x] Sensation of insects crawling Additional Comments: pt has taken benadryl , calamine lotion OTC medication without relief Pt denies the following living changes . PT complains of possible poison heri. Pt states was in some weeds Wednesday and over the days the rash hs been spreading. PT states inside elbows and knees, and face are covered in the rash. Pt states upper lip and eyes feel swollen. PT states itching very excessively. ROS A complete system ROS was performed and negative aside from the pertinent positives noted in the HPI and PE. PHYSICAL EXAM General Examination: alert, oriented, normal affect, well appearing, in no acute distress, well developed, well nourished Head: normocephalic, atraumatic Nose: no lesions, nares patent Oral Cavity: no lesions, mucosa moist Throat: clear Neck/Thyroid: neck supple, FROM Lymph Nodes: no cervical adenopathy Skin: erythematous, pruritic, vesiculopapular rash noted scattered over: bilateral elbows, face, knees Psych: alert, oriented, cognitive function intact, cooperative with exam TREATMENT PLAN 1. Rhus dermatitis (Primary) Discussed etiology and management including likely cause being poison heri. Will treat with oral prednisone due to rash in multiple sites, side effects discussed. Discussed symptomatic treatment including calamine lotion and antihistamine. Advised Pt on supportive measures, including taking cool showers, using Calamine lotion, trimming nails and limiting excoriation, identifying and avoiding allergen source, washing suspected clothes and materials that may be allergen carriers in hot water and detergent, bathe pets, and cover any oozing blisters as they may form. Patient advised to return to office or PCP if symptoms worsen, change, or do not improve. All questions/concerns addressed. Patient voiced understanding and agreement with the plan. - predniSONE (Deltasone) 10 MG tablet; Day 1-2 take 4 tabs orally by mouth once daily. Day 3-4 take 3 tabs. Day 5-6 take 2 tabs. Day 7-8 take 1 tab. Once daily for 8 days. Dispense: 20 tablet; Refill: 0 documented in this encounter [facility] 09-12-2024 History of Present illness Narrative Images from the original note were not included. Deana Croft is a 53 y.o. female presents with chief complaint of 3 Month Follow-up of Chronic Conditions (Review lab drawn 08/29/2024) HPI: History of Present Illness The patient presents for evaluation of her chronic medical conditions. She has a history of bariatric surgery and is currently on a regimen of vitamin A, D, and E supplements, she takes a combo pill, will check how much vitamin A is in this. Her recent blood work indicated a vitamin A level of 7.2, which is significantly low, with normal levels ranging from 20-60. Her vitamin D level was previously recorded at 40, which is an improvement from her usual low levels. She is under the care of Dr. Huff for hyperparathyroidism, who has conducted tests on her parathyroid and calcium levels. Recent lab results showed an estimated glomerular filtration rate (EGFR) of 57 and a creatinine level of 1.9, which are flagged as minimally abnormal. She mentions that her kidney function might be affected by dehydration, as she does not drink sufficient water. She does not monitor her blood pressure at home and does not experience any chest pain, hematochezia, or significant leg swelling. She has received a notification indicating that it is time for her to undergo a mammogram. PAST SURGICAL HISTORY: Bariatric surgery I have reviewed and reconciled the history and medication list with the patient today. HISTORIES: PAST MEDICAL HISTORY: Past Medical History: Diagnosis Date Arthritis Chronic low back pain Depression (CMS/HCC) Elevated alkaline phosphatase level Fibromyalgia OTTO (generalized anxiety disorder) (CMS/HCC) History of osteopenia Hypercalcemia Hyperparathyroidism (CMS/HCC) Insomnia Iron deficiency anemia Malabsorption (CMS/HCC) Nontoxic single thyroid nodule (CMS/HCC) Renal lithiasis S/P biliopancreatic diversion with duodenal switch Unspecified hearing loss, bilateral Venous insufficiency Vertebral body hemangioma Vitamin A deficiency Vitamin D deficiency Vitamin E deficiency Vitamin K deficiency SURGICAL HISTORY: Past Surgical History: Procedure Laterality Date APPENDECTOMY 12/02/2000 BARIATRIC SURGERY 2002 Bilopancreatic diversion with duodenal switch CHOLECYSTECTOMY 12/02/2000 COLONOSCOPY 2021 DILATION AND CURETTAGE OF UTERUS miscarriage LAMINECTOMY 07/21/2021 L3-5 fusion, L4-5 laminectomy, L4 kyphoplasty PARATHYROID 12/06/2023 neck exploration, excision of left interior parathyroid adenoma PARATHYROIDECTOMY 12/06/2023 NE REMOVAL OF KIDNEY STONE 05/2015 and 06/2015 NE SURG RX INCOMPLETE ABORTN 1990 delivery of , preeclampsia w/ SPINE SURGERY 07/21/2021 SOCIAL HISTORY: Social History Tobacco Use Smoking status: Never Smokeless tobacco: Never Vaping Use Vaping status: Never Used Substance Use Topics Alcohol use: Never Comment: caffeine- Diet Pop, 4 cans daily. 1 cups of coffee per week Drug use: Never Depression: Not at risk (01/11/2024) PHQ-2 PHQ-2 Score: 0 FAMILY HISTORY: Family History Problem Relation Name Age of Onset Hypertension Mother Ella Hypertension Father Eliel COPD Father Eliel Hearing loss Father Eliel Heart disease Father Eliel MEDICATIONS: Current Outpatient Medications Medication Instructions ALPRAZolam (XANAX) 0.5 mg, Oral, 2 times daily PRN beta carotene (VITAMIN A) 10,000 Units, Daily calcium citrate (Calcitrate) 950 (200 Ca) MG tablet Citracal 400 mg calcium and 500 international unit of Vitamin D take 2 tablets TID w/meals cholecalciferol (Vitamin D-3) 250 MCG (58690 UT) capsule 1 capsule, Daily cyclobenzaprine (FLEXERIL) 10 mg, Oral, Nightly PRN DULoxetine (CYMBALTA) 60 mg, Oral, Daily HYDROcodone-acetaminophen (Gladstone) 10-325 MG tablet 0.5-1 tablets, Oral, Every 6 hours PRN loratadine (CLARITIN) 10 mg, Oral, Daily PRN Multiple Vitamins-Minerals (Bariatric Multivitamins/Iron) capsule Every 24 hours nystatin (Mycostatin) 836067 UNIT/GM powder Topical, 2 times daily phytonadione (,Vitamin K,) 1 MG capsule She takes 1,920 mcg daily, instructed to add 1 additional Vitamin K to regimen pregabalin (LYRICA) 100 mg, Oral, 3 times daily zinc gluconate 50 MG tablet Every morning ALLERGIES: Allergies Allergen Reactions Amitriptyline Other Reaction(s): sedation Iron Sucrose Hives Oxycodone GI intolerance PHYSICAL EXAM: Visit Vitals BP 130/72 (BP Location: Left arm, Patient Position: Sitting) Pulse 69 Ht 5' 6 Wt 223 lb SpO2 97% BMI 35.99 kg/m Smoking Status Never BSA 2.17 m BP Readings from Last 3 Encounters: 09/12/24 130/72 05/04/24 140/82 01/11/24 112/70 Wt Readings from Last 3 Encounters: 09/12/24 223 lb 05/04/24 220 lb 01/19/24 211 lb Physical Exam General Examination: alert, oriented, normal affect, well-appearing, in no acute distress, well developed, well nourished. Head: normocephalic, atraumatic Heart: regular rate and rhythm, S1, S2 normal Lungs: clear to auscultation bilaterally. No wheezes, rales, rhonchi. Extremities: no edema, no cyanosis Psych: alert, oriented, cognitive function intact, cooperative with exam. Results Labs - Vitamin A level: 7.2 ng/mL - EGFR: 57 mL/min/1.73m2 - Creatinine: 1.9 mg/dL - Vitamin D level: 40 ng/mL Imaging - Renal ultrasound: Simple renal cyst ASSESSMENT AND PLAN: Assessment & Plan 1. Generalized anxiety disorder (CMS/HCC) (Primary) Reports mood is stable, will continue current regimen. Advised to call with any changes. 2. Chronic bilateral low back pain without sciatica Doing well on current regimen. OARRS reviewed and no concerns. Continue current regimen and discussed our goal is to use the lowest dose possible for the shortest amount of time. However, this is unfortunately a chronic medication for her. 3. Primary insomnia Stable, continue to monitor. 4. Iron deficiency anemia secondary to inadequate dietary iron intake No anemia on pre visit labs, Hgb 12.1 and normal RDW. 5. Hyperparathyroidism (CMS/HCC) - Follows up with Dr. Huff for hyperparathyroidism. - Parathyroid and calcium levels have been checked. - Minimal difference in kidney function compared to previous results. - Patient informed about the importance of hydration for accurate lab results. 6. Alkaline phosphatase raised Chronic, stable, continue to monitor. - Comprehensive metabolic panel; Future - Comprehensive metabolic panel 7. Other osteoporosis without current pathological fracture She is not taking anything for this, not a candidate for fosamax given her history of bariatric surgery, will discuss medication options at next visit. 8. S/P biliopancreatic diversion with duodenal switch Will continue to monitor for vitamin deficiencies. - calcium citrate (Calcitrate) 950 (200 Ca) MG tablet; Citracal 400 mg calcium and 500 international unit of Vitamin D take 2 tablets TID w/meals 9. Vitamin A deficiency - Vitamin A levels are suboptimal, likely due to history of bariatric surgery. - Current vitamin A supplement dosage needs verification; if insufficient, an additional 10,000 IU daily will be prescribed. - Re-evaluation of vitamin A levels will be conducted in 3 months. - Vitamin D level is 40, which is within acceptable range. - Vitamin A; Future - Vitamin A 10. Vitamin D deficiency Stable, continue to monitor. 11. Vitamin E deficiency Stable, continue to monitor. 12. Vitamin K deficiency Stable, continue to monitor. 13. Encounter for screening mammogram for malignant neoplasm of breast Due for MMG, ordered. - Bilateral screening mammogram with tomosynthesis 14. CKD - Kidney function shows slight decrease with eGFR of 57 and creatinine level of 1.9. - Dehydration can lead to falsely low kidney function; advised to ensure adequate hydration prior to lab tests, aiming for minimum intake of 40 ounces of water the day before the test and daily intake of 60 ounces. - Comprehensive metabolic panel (CMP) will be ordered for next visit. - Simple renal cyst identified; patient informed. 15. Blood pressure management. - Does not monitor blood pressure at home; advised to monitor daily for 2 weeks and record readings. - Readings can be submitted via portal or communicated directly. - If blood pressure is elevated, initiation of antihypertensive medication will be considered to help control blood pressure and preserve kidney function with ACEi or ARB. - No chest pain, blood in stool, or leg swelling reported. Follow-up - Follow-up appointment scheduled in 3 months. Patient is here for follow up of the above chronic problems. I am following Dr. Daniel's established plan of care for these issues. Dr. Daniel was in the office suite today and is supervising patient care. documented in this encounter [facility] 08-15-2024 Telephone encounter Note Pt requesting a refill on Lyrica to [facility] 08-15-2024 Miscellaneous Notes [facility] documented in this encounter [facility] 05-25-2024 Telephone encounter Note Pt requesting a refill on Alprazolam and P[facility]ablin to [facility] [place] [facility] 05-25-2024 Miscellaneous Notes Pt requesting a refill on Alprazolam and [facility]in [facility] [place] documented in this encounter [facility] 05-04-2024 History of Present illness Narrative Images from the original note were not included. Deana Croft is a 53 y.o. female presents with chief complaint of 3 Month Follow-up of Chronic Conditions (Review lab drawn 04/17/2024) HPI: History of Present Illness Patient presents today for follow up of chronic medical problems. She reports persistent pain, which she attributes to her thyroid condition. She has been informed that her parathyroid may be contributing to her hot flashes. She has a scheduled appointment with Dr. Huff on Wednesday. She is currently on a daily regimen of 10,000 IU of vitamin D but was previously prescribed a weekly dose of 50,000 IU, which she was unable to metabolize. She expresses concern about potential kidney disease, as indicated in her recent blood work. She maintains adequate hydration and has a known history of kidney stones, although she has not experienced any recent symptoms. She continues to gain weight despite her efforts and frequently engages in stress eating, particularly consuming carbohydrates and soda. She is uncertain about the dosage of vitamin K she is taking but confirms it is one tablet daily. IMMUNIZATIONS She received influenza vaccine. I have reviewed and reconciled the history and medication list with the patient today. HISTORIES: PAST MEDICAL HISTORY: Past Medical History: Diagnosis Date Arthritis Chronic low back pain Depression (CMS/HCC) Elevated alkaline phosphatase level Fibromyalgia OTTO (generalized anxiety disorder) (CMS/HCC) History of osteopenia Hypercalcemia Hyperparathyroidism (CMS/HCC) Insomnia Iron deficiency anemia Malabsorption (CMS/HCC) Nontoxic single thyroid nodule (CMS/HCC) Renal lithiasis S/P biliopancreatic diversion with duodenal switch Unspecified hearing loss, bilateral Venous insufficiency Vertebral body hemangioma Vitamin A deficiency Vitamin D deficiency Vitamin E deficiency Vitamin K deficiency SURGICAL HISTORY: Past Surgical History: Procedure Laterality Date APPENDECTOMY 12/02/2000 BARIATRIC SURGERY 2002 Bilopancreatic diversion with duodenal switch CHOLECYSTECTOMY 12/02/2000 COLONOSCOPY 2021 DILATION AND CURETTAGE OF UTERUS miscarriage LAMINECTOMY 07/21/2021 L3-5 fusion, L4-5 laminectomy, L4 kyphoplasty PARATHYROID 12/06/2023 neck exploration, excision of left interior parathyroid adenoma PARATHYROIDECTOMY 12/06/2023 NE REMOVAL OF KIDNEY STONE 05/2015 and 06/2015 NE SURG RX INCOMPLETE ABORTN 1990 delivery of , preeclampsia w/ NE WHOLE BLOOD FOR TRANSFUSION x 2 2004 and 2005 , anemia SPINE SURGERY 07/21/2021 SOCIAL HISTORY: Social History Tobacco Use Smoking status: Never Smokeless tobacco: Never Vaping Use Vaping status: Never Used Substance Use Topics Alcohol use: Never Comment: caffeine- Diet Pop, 4 cans daily. 1 cups of coffee per week Drug use: Never Depression: Not at risk (01/11/2024) PHQ-2 PHQ-2 Score: 0 FAMILY HISTORY: Family History Problem Relation Name Age of Onset Hypertension Mother Ella Hypertension Father Eliel COPD Father Eliel Hearing loss Father Eliel Heart disease Father Eliel MEDICATIONS: Current Outpatient Medications Medication Instructions ALPRAZolam (XANAX) 0.5 mg, Oral, 2 times daily PRN beta carotene (VITAMIN A) 10,000 Units, Daily calcium citrate (Calcitrate) 950 (200 Ca) MG tablet Citracal 400 mg calcium and 500 international unit of Vitamin D take 2 tablets TID w/meals Calcium+D3 500-15 MG-MCG tablet 2 tablets, Oral, 3 times daily cholecalciferol (Vitamin D-3) 250 MCG (70055 UT) capsule 1 capsule, Daily cyclobenzaprine (FLEXERIL) 10 mg, Oral, Nightly PRN DULoxetine (CYMBALTA) 60 mg, Oral, Daily HYDROcodone-acetaminophen (Gladstone) 10-325 MG tablet 0.5-1 tablets, Oral, Every 6 hours PRN loratadine (CLARITIN) 10 mg, Oral, Daily PRN Multiple Vitamins-Minerals (Bariatric Multivitamins/Iron) capsule Every 24 hours nystatin (Mycostatin) 257207 UNIT/GM powder Topical, 2 times daily phytonadione (,Vitamin K,) 1 MG capsule She takes 1,920 mcg daily, instructed to add 1 additional Vitamin K to regimen pregabalin (LYRICA) 100 mg, Oral, 3 times daily zinc gluconate 50 MG tablet Every morning ALLERGIES: Allergies Allergen Reactions Amitriptyline Other Reaction(s): sedation Iron Sucrose Hives Oxycodone GI intolerance PHYSICAL EXAM: Visit Vitals BP 140/82 Pulse 71 Ht 5' 6 Wt 220 lb SpO2 97% BMI 35.51 kg/m Smoking Status Never BSA 2.16 m BP Readings from Last 3 Encounters: 05/04/24 140/82 01/11/24 112/70 10/11/23 118/70 Wt Readings from Last 3 Encounters: 05/04/24 220 lb 01/19/24 211 lb 01/11/24 211 lb Physical Exam Vitals reviewed. Constitutional: General: She is not in acute distress. Appearance: Normal appearance. Neck: Vascular: No carotid bruit. Cardiovascular: Rate and Rhythm: Normal rate and regular rhythm. Heart sounds: No murmur heard. No friction rub. Pulmonary: Breath sounds: Normal breath sounds. No wheezing or rhonchi. Musculoskeletal: Cervical back: Neck supple. Right lower leg: No edema. Left lower leg: No edema. Lymphadenopathy: Cervical: No cervical adenopathy. Skin: General: Skin is warm and dry. Neurological: Mental Status: She is alert. Results Laboratory Studies Parathyroid hormone level is 88. Calcium is slightly low. Vitamin D level is 29. Vitamin K level remains low. Creatinine is slightly elevated. GFR is 64. ASSESSMENT AND PLAN: Assessment & Plan 1. Generalized anxiety disorder (CMS/HCC) (Primary) Doing well. Continue current regimen. - DULoxetine (Cymbalta) [address] capsule; Take 1 capsule (60 mg) by mouth Daily Dispense: 90 capsule; Refill: 3 2. Chronic bilateral low back pain without sciatica Doing well. OARRS report was reviewed and there were no concerns. Continue current regimen. 3. Primary insomnia Stable. Continue to monitor. 4. Hyperparathyroidism (CMS/HCC) Her parathyroid levels have shown a slight elevation at 88, which could be attributed to her vitamin D deficiency. Her calcium levels are marginally low. She will continue her current regimen of vitamin D supplementation, with an increase to two capsules of 10,000 IU each, three times a week (Wednesday, Wednesday, and Wednesday). Continue one capsule other days. 5. Iron deficiency anemia secondary to inadequate dietary iron intake Stable. Continue to monitor. - CBC and differential; Future - Protein, total and protein electrophoresis with immunofixation; Future - Immunoglobulin free LT chains blood; Future - CBC and differential - Protein, total and protein electrophoresis with immunofixation - Immunoglobulin free LT chains blood 6. Hydronephrosis, unspecified hydronephrosis type Will follow up on this with a renal U/S at this time. - US renal complete; Future 7. Alkaline phosphatase raised This could be due to hyperparathyroidism. Will continue to monitor. - Comprehensive metabolic panel; Future - Comprehensive metabolic panel 8. Vitamin D deficiency Her vitamin D levels are slightly below the normal range at 29. She will continue her current regimen of vitamin D supplementation, with an increase to two capsules of 10,000 IU each, three times a week (Wednesday, Wednesday, and Wednesday). - Vitamin D 25 hydroxy Total; Future - Vitamin D 25 hydroxy Total 9. Vitamin K deficiency Her vitamin K levels remain significantly low. She will continue her current regimen of vitamin K supplementation, with the dosage to be reviewed and potentially adjusted. - Vitamin K; Future - Vitamin K 10. Vitamin E deficiency Stable. Continue to monitor. - Vitamin E; Future - Vitamin E 11. Vitamin A deficiency Stable. Continue to monitor. - Vitamin A; Future - Vitamin A 12. Need for immunization against influenza - Flu vaccine, MDCK, Trivalent, 13. Lipid screening - Lipid panel; Future - Lipid panel 14. Weight management She continues to gain weight and reports stress eating. Counseling and the use of apps like [employer] are recommended to help manage her relationship with food. Exercise, including walking and resistance training, is also recommended to help with weight management and stress relief. PROCEDURE The patient underwent parathyroidectomy, during which 2 and 3/4 parathyroids were removed. documented in this encounter [facility] 02-11-2024 Telephone encounter Note Pt requesting a refill on Pregabalin to [facility] in [place] [facility] 02-11-2024 Miscellaneous Notes Pt requesting a refill [facility] [place] documented in this encounter [facility] 02-11-2024 Telephone encounter Note Pt requesting a refill on Hydrocodone Acetaminophen to [facility] [place] [facility] 02-11-2024 Miscellaneous Notes Pt requesting a refill on Hydrocodone Acetaminophen to [facility] [place] documented in this encounter [facility] 01-19-2024 History of Present illness Narrative HPI Patient presents today about a month postop parathyroidectomy. At the time of surgery I removed 2-1/2 glands to get the PTH drop. She is status post [id number] bypass and I certainly did not want to make her permanently hypoparathyroid hypocalcemic. Her most recent lab work today shows a PTH of 117 calcium is normal at 8.5. Relevant postoperative physical examination Neck incision healing very nicely and fading. Assessment/plan Deana was seen today for post-op. Diagnoses and all orders for this visit: History of parathyroidectomy (Primary) Comments: Again, I do not think it is safe to take any more parathyroid tissue out of this patient. Her calcium is normal and that is what counts. I discussed this with her. I will see her back in 3 months with lab work. documented in this encounter [facility] 01-13-2024 Telephone encounter Note Sent this to Dr Huff [facility] 01-13-2024 Miscellaneous Notes Sent this to Dr Huff Please call and alert Dr. Huff office. Please call Dr. Huff office and let them know we saw Deana today and she advised us that last night she started with redness, swelling, and tenderness to the incision site. Surgery was about 4 weeks ago. I took photos of this, started her on keflex and wanted Dr. Huff to be aware so they can follow up with her. She has no fevers, chills, myalgias, lymphangitis. documented in this encounter [facility] 01-13-2024 Telephone encounter Note Please call and alert Dr. Huff office. [facility] 01-11-2024 Telephone encounter Note Please call Dr. Huff office and let them know we saw Deana today and she advised us that last night she started with redness, swelling, and tenderness to the incision site. Surgery was about 4 weeks ago. I took photos of this, started her on keflex and wanted Dr. Huff to be aware so they can follow up with her. She has no fevers, chills, myalgias, lymphangitis. [facility] 01-11-2024 History of Present illness Narrative Images from the original note were not included. Deana Croft is a 53 y.o. female presents with chief complaint of 3 Month OV HPI: HPI History of Present Illness The patient presents for evaluation of chronic medical conditions. She did not have lab drawn prior to visit, will have done today. She had left parathyroidectomy on 12/06/[address] Huff. Follow up scheduled 01/19/2024. She is feeling good other than last night she started noticing irritation, redness and swelling at her incision line. She reports that the nodule appears to be infected, as she observed redness and inflammation last night. She has an upcoming appointment with Dr. Huff on 01/19/2024. The nodule was not present immediately after her parathyroid surgery on 12/06/2023. She denies experiencing any pain, oozing, fevers, chills, or body aches. However, she did notice some itchiness last night. She also denies having a sore throat, cough, chest pain, or shortness of breath. ALLERGIES She is not allergic to any antibiotics. I have reviewed and reconciled the history and medication list with the patient today. HISTORIES: PAST MEDICAL HISTORY: Past Medical History: Diagnosis Date Arthritis Chronic low back pain Depression (CMS/HCC) Elevated alkaline phosphatase level Fibromyalgia OTTO (generalized anxiety disorder) (CMS/HCC) History of osteopenia Hypercalcemia Hyperparathyroidism (CMS/HCC) Insomnia Iron deficiency anemia Malabsorption (CMS/HCC) Nontoxic single thyroid nodule (CMS/HCC) Renal lithiasis S/P biliopancreatic diversion with duodenal switch Unspecified hearing loss, bilateral Venous insufficiency Vertebral body hemangioma Vitamin A deficiency Vitamin D deficiency Vitamin E deficiency Vitamin K deficiency SURGICAL HISTORY: Past Surgical History: Procedure Laterality Date APPENDECTOMY 12/02/2000 BARIATRIC SURGERY 2001 Bilopancreatic diversion with duodenal switch CHOLECYSTECTOMY 12/02/2000 COLONOSCOPY 2021 DILATION AND CURETTAGE OF UTERUS miscarriage LAMINECTOMY 07/21/2021 L3-5 fusion, L4-5 laminectomy, L4 kyphoplasty PARATHYROID 12/06/2023 neck exploration, excision of left interior parathyroid adenoma PARATHYROIDECTOMY 12/06/2023 NE REMOVAL OF KIDNEY STONE 05/2015 and 06/2015 NE SURG RX INCOMPLETE ABORTN 1990 delivery of infant, preeclampsia w/ NE WHOLE BLOOD FOR TRANSFUSION x 2 2004 and 2005 , anemia SPINE SURGERY 07/21/2021 SOCIAL HISTORY: Social History Tobacco Use Smoking status: Never Smokeless tobacco: Never Vaping Use Vaping status: Never Used Substance Use Topics Alcohol use: Never Comment: caffeine- Diet Pop, 4 cans daily. 1 cups of coffee per week Drug use: Never Depression: Not at risk (10/11/2023) PHQ-2 PHQ-2 Score: 0 FAMILY HISTORY: Family History Problem Relation Name Age of Onset Hypertension Mother Ella Hypertension Father Eliel COPD Father Eliel Hearing loss Father Eliel Heart disease Father Eliel MEDICATIONS: Current Outpatient Medications Medication Instructions ALPRAZolam (XANAX) 0.25 mg, Oral, 2 times daily PRN beta carotene (VITAMIN A) 10,000 Units, Oral, Daily, 900 MCG QD calcium citrate (Calcitrate) 950 (200 Ca) MG tablet Citracal 400 mg calcium and 500 international unit of Vitamin D take 2 tablets TID w/meals Calcium+D3 500-15 MG-MCG tablet 2 tablets, Oral, 3 times daily cholecalciferol (Vitamin D-3) 250 MCG (97473 UT) capsule 1 capsule, Oral, Daily cyclobenzaprine (FLEXERIL) 10 mg, Oral, Nightly PRN DULoxetine (CYMBALTA) 60 mg, Oral, Daily ergocalciferol (Vitamin D2) 1.25 MG (80870 UT) capsule TAKE 1 CAPSULE BY MOUTH EVERY WEEK FOR 12 WEEKS HYDROcodone-acetaminophen (Gladstone) 10-325 MG tablet 0.5-1 tablets, Oral, Every 6 hours PRN loratadine (CLARITIN) 10 mg, Oral, Daily PRN Multiple Vitamins-Minerals (Bariatric Multivitamins/Iron) capsule Every 24 hours nystatin (Mycostatin) 468523 UNIT/GM powder Topical, 2 times daily phytonadione (,Vitamin K,) 1 MG capsule She takes 1,920 mcg daily, instructed to add 1 additional Vitamin K to regimen pregabalin (LYRICA) 100 mg, Oral, 3 times daily zinc gluconate 50 MG tablet Every morning ALLERGIES: Allergies Allergen Reactions Amitriptyline Other Reaction(s): sedation Iron Sucrose Hives Oxycodone GI intolerance PHYSICAL EXAM: Visit Vitals BP 112/70 (BP Location: Left arm, Patient Position: Sitting) Pulse 76 Ht 5' 6 Wt 211 lb SpO2 97% BMI 34.06 kg/m Smoking Status Never BSA 2.11 m BP Readings from Last 3 Encounters: 01/11/24 112/70 10/11/23 118/70 07/05/23 122/80 Wt Readings from Last 3 Encounters: 01/11/24 211 lb 12/14/23 215 lb 11/02/23 215 lb Physical Exam General Examination: alert, oriented, normal affect, well-appearing, in no acute distress, well developed, well nourished. Head: normocephalic, atraumatic Eyes: sclera non-icteric Oral Cavity: no lesions, mucosa moist Throat: clear, symmetrical rise of soft palate and uvula, no erythema or exudate Lymph Nodes: no cervical adenopathy Neck: parathyroidectomy vertical scar with surrounding erythema and nodule on inferior wound edge with associated mild ttp, no active oozing or drainage, wound edges well approximated, no pustules Heart: regular rate and rhythm, S1, S2 normal Lungs: clear to auscultation bilaterally. No wheezes, rales, rhonchi. Extremities: no edema, no cyanosis Psych: alert, oriented, cognitive function intact, cooperative with exam. Results ASSESSMENT AND PLAN: Assessment & Plan 1. Postoperative Parathyroidectomy Incision Site Redness. The patient reports redness, tenderness, and slight inflammation at the surgical site, which she noticed yesterday. There is no pain, oozing, fever, chills, or body aches. A photograph of the area will be taken and added to her medical record. Our office will contact Dr. Huff's office to inform them of the new symptoms. Question infectious vs inflammatory reaction, an antibiotic prescription will be sent to [facility] in [place]. She is advised to consume yogurt or a probiotic daily while on the antibiotic to maintain gut health. - cephalexin (Keflex) 500 MG capsule; Take 1 capsule (500 mg) by mouth in the morning and 1 capsule (500 mg) in the evening and 1 capsule (500 mg) before bedtime. Do all this for 7 days. Dispense: 21 capsule; Refill: 0 2. Chronic bilateral low back pain without sciatica Doing well on current regimen. OARRS reviewed and no concerns. Continue current regimen and discussed out goal is to use the lowest dose possible for the shortest amount of time, however this is unfortunately a chronic medication for her at this time. 3. Generalized anxiety disorder (CMS/HCC) Reports mood is stable, will continue current regimen. Advised to call with any changes. 4. Hyperparathyroidism (CMS/HCC) Seeing Dr. Huff, s/p parathyroidectomy approx 4 weeks ago. documented in this encounter [facility] 12-05-2023 Hospital Discharge instructions Additional Instructions 1. No lifting or straining 2. Take medications as prescribed - START RIGHT WHEN YOU GET HOME TODAY 3. Tylenol or Motrin for discomfort 4. If signs or symptoms of low calcium occur, report to the [facility] emergency room 5. Get blood work drawn [address] Huff in the office 6. See Dr. Huff in 1 week [facility] Work Phone: 07-31-2021 Note Send Summary: Discharge Summary Providers: Provider RoleProvider Name AttendingMillerTri Robert L Note Recipients: Joey Daniel MD - [id number] [] Discharge: Summary: Admission Date: .30-Jul-2021 17:22:00 Discharge Date: 31-Jul-2021 Attending Physician at Discharge: Tri Awad Admission Reason: Surgical wound dehiscence Final Discharge Diagnoses: Superficial dehiscence of wound Procedures: none Condition at Discharge: Satisfactory Disposition at Discharge: Home Health Care - Resumed Vital Signs: T PRBPMAPSpO2 [id number]/6396% Date/Time07/31 12: 12: 12: 12: 12:06 Range(35.7C - 36.6C ) (76 - 112 ) (15 - 18 ) (99 - 135 )/ (63 - 86 ) (96% - 99% ) Date: Weight/Scale Type:Height: 31-Jul-2021 06:0690 kg Physical Exam: General: in be, awake, no distress HEENT: normocephalic, IJEOMA, tongue midline Cardiac: S1 & S2 regular Resp: equal chest expansion, lungs clear bilaterally Abd: BS +x4, soft, non-tender Extr: no edema, pulses palpable x4 Neuro: A&Ox3, follows commands, MEDINA's, 5/5 strength to all extremities Skin: lumbar spine incision clean, dry, intact with ezio, multiple superficial soft tissue skin tears, no drainage. 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 Multiple superficial soft tissue wound dehiscence on either side of back incision; ezio intact; no signs of infection. Plastic surgery consulted-->superficial skin tears; no Plastic surgery intervention required; Bacitracin to superficial skin tears around spine incision, cover with Mepilex Wound RN--> Xeroform guaze to left flank, cover with Mepilex Discharged to home with Home Care and scheduled follow up. Discharge Information: and Continuing Care: Lab Results - Pending: Culture, Blood Drawn at 30-Jul-2021 19:41:00 Culture, Blood Drawn at 30-Jul-2021 19:13:00 Radiology Results - Pending: None Discharge Instructions: Activity: activity as tolerated. May shower.. May not return to school/work until follow-up visit with. Dr Awad May not drive until follow-up visit. No pushing, pulling, or lifting objects greater than 10 pounds. Weight-bearing Instructions: weight-bearing as tolerated. Activity as tolerated Pain or discomfort is a guide to cut back on your activity You may shower immediately after discharge DO NOT allow direct water spray on your incision No tub soaking You may ride in a car with your seat belt on DO NOT participate in contact sports, yard work, or housework that requires bending or twisting at the waist. This includes: laundry, gardening, mowing lawns, vacuuming, ironing, washing dishes, & loading the dryer or airplane cover maker until cleared by MD Do NOT bend at waist or twist. Instead, bend at knees to fruit or nut picker objects Nutrition/Diet: regular Wound Care: Wound Site: Superficial Soft Tissue Skin Tears Wound Type: surgical incision, spine incision Change Dressing: daily Cleanse With: NS or Wound Cleanser Apply: Bacitracin Cover With: Mepilex Wound Site: Left Flank skin Tear Change Dressing: daily Cleanse With: NS or Wound Cleanser Apply: Xeroform guaze Cover With: Mepilex Inspect your incision daily for signs of infection: redness, swelling, drainage and foul discharge Keep surgical incision open to air DO NOT soak in a tub or swim until incision is completely healed. This may take approximately 4 weeks DO NOT scrub or rub the incision. You may gently pat the incision DO NOT pick off scabs, or old blood from the incision site. The incision should heal naturally on its own Home Care Certification: Skilled Disciplines Ordered: RN/MEDICAL OR SURGICAL INSTRUMENT MAKER, PT, OT Home Care Services: Home Care Skilled Service: Rehab (PT/OT/SP eval and treat), wound care Follow Up Appointments: Follow-Up - Neurosurgeon: Physician/Dept/Service: Neurosurgeon Dr. Tri Awad Scheduled Date/Time: 14-Aug-2021 13:45 Location: [facility], [facility], 5th Floor, [address] [place] [address] Follow-Up - Neurosurgery [facility]: Physician/Dept/Service: Neurosurgery at [facility] Dr. Tri Awad Scheduled Date/Time: 18-Sep-2021 13:00 Location: [facility], [facility], 5th Floor, [address] [place] [address] Discharge Medications: Home Medication cholecalciferol 1250 mcg (50,000 intl units) oral capsule - 1 cap(s) orally (more content not included)... [facility] 07-30-2021 Note History of Present I llness: /Lactating: Are You no Are You Currently Breastfeedingno Service: Service: Surgery History Present Illness: HPI: Patient is a 50 year old female w/ h/o gastric bypass (2001), chronic anemia, fibromyalgia, neurogenic claudication, who underwent L3-5 lami/fusion w L4 kyphoplasty on 07/21 who was seen by home care nurse today and was noted to be leaking from nehal-incisional region as well as noted concern for wound dehiscence by nurse. Patient has not noted any wound leakage, swelling or periincision erythema. Did note that flank region around incision has skin breakdown, which was weeping earlier today which the wound care nurse noted. Has not had any fevers/chills/nausea/vomiting. Has been ambulatory, no new weakness or numbness. CRP w/ elevation to 2.79 The patient's radiographic findings were personally reviewed and the following significant findings were identified: no new imaging to review PMHx: as above PSHx: as above SHx: denies smoking, illicits, EtOH FHx: reviewed and not pertinent to the current admission 14 point ROS negative except as above Some components of the patient's HPI were obtained through personal review of the patient's available medical records. Comorbidities: Comorbidites: Comorbid Conditionsdiabetes Diabetes TypeType 2 Insulin Dependentyes DM Acuity or Statuspoorly controlled Allergies: No Known Allergies: Medications Prior to Admission: Admission Medication Reconciliation has not been completed for this patient. Objective Information: Objective Information: T PRBPMAPSpO2 [id number]/8699% Date/Time07/30 17: 17: 17: 17: 17:30 Range(35.7C - 35.7C ) (112 - 112 ) (18 - 18 ) (129 - 129 )/ (86 - 86 ) (99% - 99% ) Physical Exam by System: Constitutional: NAD Eyes: No conjunctival injection Head/Neck: Head atraumatic Respiratory/Thorax: Symmetric chest rise; no respiratory distress appreciated Cardiovascular: No obvious JVD; palpable radial pulses bilaterally Gastrointestinal: Abdomen soft, nondistended Neurological: AAOx3 EOMI FS TML RUE D5, B5, T5, HG5, IO5 LUE D5, B5, T5, HG5, IO5 RLE HF 5, KE5, PF5, EHL5, DF5 LLE HF 5, KE5, PF5, EHL5, DF5 No drift No hoffmans or clonus SILT grossly Skin: incision with multiple areas of superficial dehiscence without deep tissue dehiscence, no active leakge, two areas on either side of incision w/ skin sloughing Assessment and Plan: Assessment: Patient is a 50 year old female w/ h/o gastric bypass (2001), chronic anemia, fibromyalgia, neurogenic claudication, who underwent L3-5 lami/fusion w L4 kyphoplasty on 07/21 who was seen by home care nurse today and transferred to [facility] for evaluation of incision and surrounding soft tissue. No active drainage or significant dehiscence noted. Patient non toxic with stable vital signs, not concerning at this point for underlying infection. PLAN obs plastic surgery consult no abx at this time preop labs, will make NPO after midnight f/u BCx CT A/P Attestation: Note Completion: I am a: Resident/Fellow Attending AttestationI saw and evaluated the patient. I personally obtained the sam and critical portions of the history and physical exam or was physically present for sam and critical portions performed by the resident/fellow. I reviewed the resident/fellows documentation and discussed the patient with the resident/fellow. I agree with the resident/fellows medical decision making as documented in the note. I personally evaluated the patient [id number] Electronic Signatures: Thien Sagastume ( (Resident)) (Signed 31-Jul-2021 00:03) Entered: History of Present Illness, Objective, Assessment and Plan Authored: History of Present Illness, Comorbidities, Allergies, Medications Prior to Admission, Objective, Assessment and Plan, Note Completion Manuel Keating (Resident)) (Signed 30-Jul-2021 18:44) Authored: History of Present Illness, Comorbidities, Allergies, Medications Prior to Admission, Objective, Assessment and Plan, Note Completion Tri Awad) (Signed 31-Jul-2021 16:54) Authored: Note Completion Co-Signer: History of Present Illness, Comorbidities, Allergies, Medications Prior to Admission, Objective, Assessment and Plan, Note Completion Last Updated: 31-Jul-2021 16:54 by Tri Awad) [facility] 07-24-2021 Note Send Summary: Discharge Summary Providers: Provider RoleProvider Name Joey Dumont Note Recipients: Joey Daniel MD - [id number] [] Discharge: Summary: Admission Date: .21-Jul-2021 06:43:00 Discharge Date: 24-Jul-2021 Attending Physician at Discharge: Tri Awad Admission Reason: Lumbar stenosis Final Discharge Diagnoses: Lumbar stenosis Procedures: Date: 21-Jul-2021 15:55:00 Procedure Name: 1. L3/5 posterior instrumented fusion 2. L4/5 laminectomy 3. L4 open kyphoplasty 5. neuronavigation Condition at Discharge: Satisfactory Disposition at Discharge: Home Health Care - New Vital Signs: T PRBPMAPSpO2 [id number]/7395% Date/Time07/24 12: 12: 12: 12: 12:00 Range(35.3C - 37.9C ) (75 - 106 ) (20 - 20 ) (94 - 114 )/ (55 - 73 ) (94% - 100% ) Highest temp of 37.9 C was recorded at 07/23 16:28 Date: Weight/Scale Type:Height: 21-Jul-2021 21:1288.7 kg / otf686.4 cm Physical Exam: General: in bed, awake, no distress HEENT: PERRL; EOMI Neuro: Neurological: BUE 5/5 BLE 5/5 SILT Cardiac: regular rate and rhythm Resp: respirations easy and regular Abd: soft, non-tender, non-distended Extr: no edema; pulses palpable Skin: warm, dry, intact. 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 Post operative course uncomplicated. Post op drains removed on POD #3. PT/Ot evaluated patient with recommendation for C. Patient discharged to home in satisfactory condition. Discharge Information: and Continuing Care: Lab Results - Pending: None Radiology Results - Pending: None Discharge Instructions: Activity: activity as tolerated. May not drive until follow-up visit. and while taking pain medications No pushing, pulling, or lifting objects greater than 10 pounds until follow-up visit. Weight-bearing Instructions: weight-bearing as tolerated. Activity as tolerated Pain or discomfort is a guide to cut back on your activity You may shower immediately after discharge DO NOT allow direct water spray on your incision No tub soaking DO NOT drive a car or RIDE a bicycle or motorcycle until cleared by MD at follow-up appointment. Driving or operating heavy machinery, lawnmowers or power tools while taking opiod/narcotic pain medications may impair your judgement You may ride in a car with your seat belt on May NOT return to school/work. Returning to work is judged on an individual basis. You may be off work from 2-8 weeks and this will be evaluated by the MD at the follow-up appointment. DO NOT participate in contact sports, yard work, or housework that requires bending or twisting at the waist. This includes: laundry, gardening, mowing lawns, vacuuming, ironing, washing dishes, & loading the dryer or airplane cover maker until cleared by MD Do NOT bend at waist or twist. Instead, bend at knees to fruit or nut picker objects Nutrition/Diet: regular Wound Care: Inspect your incision daily for signs of infection: redness, swelling, drainage and foul discharge Keep surgical incision open to air DO NOT soak in a tub or swim until incision is completely healed. This may take approximately 4 weeks DO NOT scrub or rub the incision. You may gently pat the incision DO NOT pick off scabs, or old blood from the incision site. The incision should heal naturally on its own Additional Orders: Additional Instructions: -Do not take any over the counter or prescription NSAID medications for at least three months or until cleared by your Neurosurgeon. These medications include: Motrin, Ibuprofen, Advil, Aleve, Naproxen, Mobic etc.. This will allow for proper and adequate bone fusion. Please call your Neurosurgeon's office if you have any questions. -If you smoke or use products containing nicotine your are advised to stop. Nicotine may interfere with your bone fusion and hinder wound healing. Home Care Certification: Skilled Disciplines Ordered: PT, OT Follow Up Appointments: Follow-Up - Neurosurgeon: Physician/Dept/Service: Neurosurgeon Dr. Tri Awad Scheduled Date/Time: 14-Aug-2021 13:45 Location: [facility], [address], [address] [place] [address] Follow-Up - Neurosurgery [facility]: Physician/Dept/Service: Neurosurgery at [facility] Dr. Tri Awad Scheduled Date/Time: 18-Sep-2021 13:00 Location: [facility], [address], [address] [place] [address] Discharge Medication (more content not included)... [facility] 07-21-2021 Note PROCEDURE DETAILS Preoperative Diagnosis: lumbar stenosis, neurogenic claudication, L4 vertebral hemangioma Postoperative Diagnosis: lumbar stenosis, neurogenic claudication, L4 vertebral hemangioma Surgeon: Ritesh Resident/Fellow/Other Sueding Machine Tender: Isabel Procedure: 1. L3/5 posterior instrumented fusion 2. L4/5 laminectomy 3. L4 open kyphoplasty 5. neuronavigation Estimated Blood Loss: 250 Findings: L4 hemangioma with obliteration of bilateral L4 pedicles Specimens(s) Collected: no, Complications: none Drains and/or Catheters: 2 15-round drains connected to a single Hemovac suction Implants: Mobile2Metronic Patient Returned To/Condition: PACU Date of Dictation: 21-Jul-2021 Dictated By: Ben Denise Dictation Job Number: [id number] Attestation: Note Completion: I am a:Resident/Fellow Attending AttestationI was present for sam portions of the procedure and the procedure lasted longer than 5 minutes. Electronic Signatures: Ben Denise (Resident)) (Signed 21-Jul-2021 16:05) Authored: Post-Operative Note, Chart Review, Note Completion Tri Awad) (Signed 24-Jul-2021 17:08) Authored: Note Completion Co-Signer: Post-Operative Note, Chart Review, Note Completion Last Updated: 24-Jul-2021 17:08 by Tri Awad) [facility] 07-21-2021 Note History & Physical R eviewed: /Lactating: Are You no Are You Currently Breastfeedingno I have reviewed the History and Physical dated: 11-Jul-2021 History and Physical reviewed and relevant findings noted. Patient examined to review pertinent physical findings.: No significant changes Home Medications Reviewed: no changes noted Allergies Reviewed: no changes noted ERAS (Enhanced Recovery After Surgery): ERAS Patient: no Consent: COVID-19 Consent: COVID-19 Risk ConsentSurgeon has reviewed sam risks related to the risk of farshad COVID-19 and if they contract COVID-19 what the risks are. Attestation: Note Completion: I am a: Resident/Fellow Attending AttestationI saw and evaluated the patient. I personally obtained the sam and critical portions of the history and physical exam or was physically present for sam and critical portions performed by the resident/fellow. I reviewed the resident/fellows documentation and discussed the patient with the resident/fellow. I agree with the resident/fellows medical decision making as documented in the note. I personally evaluated the patient [id number] Electronic Signatures: Ben Denise (Resident)) (Signed 20-Jul-2021 14:52) Authored: History & Physical Reviewed, ERAS, Consent, Note Completion Tri Awad) (Signed 24-Jul-2021 16:41) Authored: Note Completion Co-Signer: History & Physical Reviewed, ERAS, Consent, Note Completion Last Updated: 24-Jul-2021 16:41 by Tri Awad) [facility] 07-05-2021 Reason for referral (narrative) Reason for Referral: L3/5 posterior instrumented fusion; L4/5 laminectomy; L4 open kyphoplasty; neuronavigation. [facility] Chief complaint Narrative - Reported Patient is being seen for an initial Neurosurgical evaluation and NPV ref by Dr Jones for hemangioma clusters. [id number] Work Phone: Evaluation note Neurological: BUE 5/5BLE 5/5SILT [facility] Evaluation note No assessment inform ation available [facility] Work Phone: Evaluation note Diagnosis Generalized anxiety disorder (CMS/HCC) Generalized anxiety disorder Chronic bilateral low back pain without sciatica [facility] Diagnosis Chronic bilateral low back pain without sciatica [facility] Diagnosis Generalized anxiety disorder (CMS/HCC) Generalized anxiety disorder [facility] Diagnosis Chronic bilateral low back pain without sciatica [facility] Diagnosis History of parathyroidectomy- Primary [facility] Diagnosis Chronic bilateral low back pain without sciatica [facility] Diagnosis Rash Rash and other nonspecific skin eruption Chronic pansinusitis Other chronic sinusitis Chronic bilateral low back pain without sciatica [facility] Diagnosis Chronic bilateral low back pain without sciatica- Primary Generalized anxiety disorder (CMS/HCC) Generalized anxiety disorder Hyperparathyroidism (CMS/HCC) Hyperparathyroidism, unspecified Local skin infection Unspecified local infection of skin and subcutaneous tissue [facility] Diagnosis Generalized anxiety disorder (CMS/HCC)- Primary Generalized anxiety disorder Chronic bilateral low back pain without sciatica Primary insomnia Persistent disorder of initiating or maintaining sleep Hyperparathyroidism (CMS/HCC) Hyperparathyroidism, unspecified Iron deficiency anemia secondary to inadequate dietary iron intake Hydronephrosis, unspecified hydronephrosis type Alkaline phosphatase raised Other nonspecific abnormal serum enzyme levels Vitamin D deficiency Vitamin K deficiency Deficiency of vitamin K Vitamin E deficiency Deficiency of other vitamins Vitamin A deficiency Need for immunization against influenza Need for prophylactic vaccination and inoculation against influenza Lipid screening Screening for lipoid disorders [facility] Diagnosis Chronic pansinusitis Other chronic sinusitis Generalized anxiety disorder (CMS/HCC) Generalized anxiety disorder Chronic bilateral low back pain without sciatica documented [facility]* Diagnosis Generalized anxiety disorder (CMS/HCC)- Primary Generalized anxiety disorder Chronic bilateral low back pain without sciatica Primary insomnia Persistent disorder of initiating or maintaining sleep Iron deficiency anemia secondary to inadequate dietary iron intake Hyperparathyroidism (CMS/HCC) Hyperparathyroidism, unspecified Alkaline phosphatase raised Other nonspecific abnormal serum enzyme levels Other osteoporosis without current pathological fracture S/P biliopancreatic diversion with duodenal switch Vitamin A deficiency Vitamin D deficiency Vitamin E deficiency Deficiency of other vitamins Vitamin K deficiency Deficiency of vitamin K Encounter for screening mammogram for malignant neoplasm of breast documented in [facility]* Diagnosis Chronic bilateral low back pain without sciatica documented in this encounter [facility]* Diagnosis Generalized anxiety disorder Generalized anxiety disorder Chronic bilateral low back pain without sciatica documented in this encounter [facility]* Diagnosis Rhus dermatitis- Primary [facility]* Diagnosis Chronic bilateral low back pain without sciatica [facility]* referred by dr jones * pt reports severe lower back pain and mid back pain that started many years ago * the pain is always present, made worse by standing/walking/reaching * both legs are weak and stairs are very difficult; she is able to walk only short distances * she has numbness/tingling in both legs * she has hyperparathyroidism with a kidney stone that causes pain * no bowel or bladder symptoms * no perineal anesthesia [id number] Work Phone: History of Present illness Narrative* pt reports pain in back and leg have resolved * no complaints related to incision [id number] Work Phone: Hospital Discharge instructions* Activity:activity as tolerated. May not drive until follow-up visit and while taking pain medications. No pushing, pulling, or lifting objects greater than 10 pounds until follow-up visit. Weight-bearing Instructions: weight-bearing as tolerated. * Additional Orders:Additional Instructions: -Do not take any over the counter or prescription NSAID medications for at least three months or until cleared by your Neurosurgeon. These medications include: Motrin, Ibuprofen, Advil, Aleve, Naproxen, Mobic etc.. This will allow for proper and adequate bone fusion. Please call your Neurosurgeon's office if you have any questions.-If you smoke or use products containing nicotine your are advised to stop. Nicotine may interfere with your bone fusion and hinder wound healing. * Home Care Face to Face Certification:Home Care Services Needed: yesSkilled Disciplines Ordered: PT,OTFace to Face Encounter Completed: yesDate of Encounter: [id number] Necessity for Homecare(based on clinical findings): PT/OT services needed for evaluation and treatment, establishment of home exercise regimen, and to provide adaptive devices as necessary. Homebound Status: homeboundHomebound Due to: Patient homebound related to exertional fatigue and pain impairing mobility in the postoperative period. Face to Face Completed and Home Care Orders Reviewed: I certify that this patientis under my care. I have reviewed the information included in the face to face and certify that thehome care services ordered are medically necessary for this patient. * - -- -Patient Instructions:- Call 911 or go directly to the Emergency Room if you have ANY of the following symptoms: 1. Sudden weakness or numbness of the face, arm or leg, especially on one side ofthe body 2. Sudden difficulty speaking or understanding 3. Sudden trouble seeing in one or both eyes 4. Sudden trouble walking, dizziness, loss of balance or lack of coordination 5. Persistent one-sided headache 6. Loss of conscious or decreased conscious, fainting or seizures. - Always carry a current medication list with you and bring it to ALL healthcare Provider visits. * Activity:Activity as tolerated. Pain or discomfort is a guide to cut back on your activity. You mayshower immediately after discharge. DO NOT allow direct water spray on your incision. No tub soaking. DO NOT drive a car or RIDE a bicycle or motorcycle until cleared by MD at follow-up appointment. Driving or operating heavy machinery, lawnmowers or power tools while taking opiod/narcotic pain medications may impair your judgement. You may ride in a car with your seat belt on. May NOT return to school/work. Returning to work is judged on an individual basis. You may be off work from 2-8 weeks and this will be evaluated by the MD at the follow-up appointment. DO NOT participate in contact sports, yard work, or housework that requires bending or twisting at the waist. This includes: laundry,gardening, mowing lawns, vacuuming, ironing, washing dishes, & loading the dryer or airplane cover maker until cleared by MD. Do NOT bend at waist or twist. Instead, bend at knees to fruit or nut picker objects. * Wound Care:Inspect your incision daily for signs of infection: redness, swelling, drainage and fouldischarge. Keep surgical incision open to air. DO NOT soak in a tub or swim until incision is completely healed. This may take approximately 4 weeks. DO NOT scrub or rub the incision. You may gently pat the incision. DO NOT pick off scabs, or old blood from the incision site. The incision should heal naturally on its own. * Medication Instructions:If you were taking medications prior to your surgery and they are not listed on your discharge homegoing instructions medications list, consult your MD before you resume thesemedications. DO NOT resume taking blood thinning medications like Coumadin/Warfarin, Ibuprofen and Aspirin until cleared by your Neurosurgeon. Remember when taking Acetaminophen to NOT exceed 1000 mgper dose or 4000 mg per day. Taking too much Acetaminophen at one time can damage your liver. Call MD if you have any questions about your medications. To prevent constipation while taking narcotic pain medications, ensure that you drink plenty of water, eat fiber rich foods (a good source is fruit) and increase activity progressively. * Call Physician If:Call your Neurosurgeon immediately for any questions or concerns regarding the surgical incision. Call your MD or seek immediate medical attention if you experience any of the following symptoms: 1. Fever of 101.5 (38.5 C) or greater 2. Seizures 3. Nausea with vomiting 4. Double, b lurry or loss of vision 5. Confusion 6. Severe headaches that make you nauseous and vomit 7. Drainage or swelling around your incision 8. Trouble speaking 9. Loss of movement or weakness in your armsor legs 10. Trouble controlling your bowels or bladder 11. Fainting or passing out 12. Separation of the incision, or tearing of the incision line 13. Large fluid collection under or around the incision 14. Difficultly swallowing for Cervical patients 15. Swelling, pain, heat or redness in your legs and/or calves. * Follow-Up - Neurosurgeon:Physician/Dept/Service: Neurosurgeon, Dr. Tri AwadScheduled Date/Time: 14-Aug-2021 13:45Location: [facility], [facility] 5th Floor, [address] [place] [id number] Number: [phone]: Please wear a mask when entering the building. Please arrive 10-15 minutes early, bring photo ID, insurance card, discharge summary, and list of current medications and dosages. If unable to keep this appointment, please call to cancel at least 24 hours prior to appointment. * Follow-Up - Neurosurgery [facility]:Physician/Dept/Service: Neurosurgery at [facility], Dr. Tri Camachoeduled Date/Time: 18-Sep-2021 13:00Phone Number: [phone]: [facility], [facility] 5th Floor, [address] [place] [id number]: Please wear a mask when entering the building. Please arrive 10-15 minutes early, bring photo ID, insurance card, discharge summary, and list of current medications and dosages. If unable to keep this appointment, please call to cancel at least 24 hours prior to appointment. [facility] Summary Purpose Family History Unknown Family Member Name Dates Details Family history of hypertensi on: Mother, Father(V17.49, Z82.49) Status:Active Unknown Family Member Name Dates Details Family history of hypertensi on: Mother, Father(V17.49, Z82.49) Status:Active Unknown Family Member Name Dates Details Family history of hypertensi on: Mother, Father(V17.49, Z82.49) Status:Active Unknown Family Member Name Dates Details Family history of hypertensi on: Mother, Father(V17.49, Z82.49) Status:Active Unknown Family Member Name Dates Details Family history of hypertensi on: Mother, Father(V17.49, Z82.49) Status:Active Relationship Condition Age at Onset Recorded Date/T kristy father Chronic obstructive pulmonary disease Unk nown Hypertension Unknown Presence of cardiac pacemaker Unknown Advance Directives Advance Directive Response Recorded Date/ Time Advance Directives No July 29, 2 019 10:40am Chief Complaint Patient is being seen for POV s/p L3/5 posterior instrumented fusion, L4/5 laminectomy, L4 open kyphoplasty on 07/21/21 and a follow-up Neurosurgical visit. Chief Complaint and Reason for Visit Chief Complaint E55.9 E56.1 E21.3 Z9 8.84 Chief Complaint E55.9 E56.1 E21.3 Z9 8.84 e21.3 Chief Complaint E55.9 E56.1 E21.3 Z9 8.84 e21.3 Parathyroid Adenoma Chief Complaint E55.9 E56.1 E21.3 Z9 8.84 e21.3 Parathyroid Adenoma Parathyroid Adenoma Chief Complaint E55.9 E56.1 E21.3 Z9 8.84 e21.3 Parathyroid Adenoma Parathyroid Adenoma E21.0 Additional Source Comments INFORMATION SOURCE (unrecogn ized section and content) DATE CREATED AUTHOR 10/22/2017 [facility] DATE CREATED AUTHOR AUTHOR'S ORGANIZ ATION 02/05/2019 [facility] DATE CREATED AUTHOR AUTHOR'S ORGANIZ ATION 05/29/2021 [facility] DATE CREATED AUTHOR AUTHOR'S ORGANIZ ATION 06/18/2021 [facility] DATE CREATED AUTHOR AUTHOR'S ORGANIZ ATION 08/15/2021 [facility] DATE CREATED AUTHOR AUTHOR'S ORGANIZ ATION 02/27/2022 [facility] DATE CREATED AUTHOR AUTHOR'S ORGANIZ ATION 12/26/2023 [facility] y[facility] DATE CREATED AUTHOR AUTHOR'S ORGANIZ ATION 11/22/2024 [facility]ists EPIC <item> Privacy Markings (unrecogniz ed section and content) Section Author: Elizabeth Kenney PROHIBITION ON REDISCLOSURE OF CONFIDENTIAL INFORMATION This notice accompanies a disclosure of information concerning a client made to you with the consent of such client. Goals (unrecognized section and content) Goals may be documented in a n alternate sectionGoals may be documented in an alternate sectionGoals may be documented in an alternate sectionGoals may be documented in an alternate section Care Teams (unrecognized sec tion and content) Team Status: Active Member Role Status Aftab Daniel MD Primary Care Provider Active Team Status: Inactive Member Role Status Aftab Daniel MD Primary Care Provide r, Referring Provider Active Start: September 28, 2023 End: September 28, 2023 Vinny Huff DO Attending Provider Active S tart: September 28, 2023 End: September 28, 2023 Team Status: Inactive Member Role Status Aftab Daniel MD Primary Care Provider Active St art: October 27, 2023 End: October 27, 2023 Vinny Huff DO Attending Provider Active S tart: October 27, 2023 End: October 27, 2023 Team Status: Inactive Member Role Status Aftab Daniel MD Primary Care Provider Active St art: November 12, 2023 End: November 12, 2023 Vinny Huff DO Attending Provider Active S tart: November 12, 2023 End: November 12, 2023 Team Status: Inactive Member Role Status Aftab Daniel MD Primary Care Provider Active St art: December 06, 2023 End: December 06, 2023 Vinny Huff DO Attending Provider Active S tart: December 06, 2023 End: December 06, 2023 Team Status: Inactive Member Role Status Aftab Daniel MD Primary Care Provider Active St art: December 13, 2023 End: December 13, 2023 Vinny Huff DO Attending Provider Active S tart: December 13, 2023 End: December 13, 2023 Polo Coach Relationship Specialty Start Date End Date Joey Daniel MD [address] [place] [address] PCP - General Internal Medicine 11/26/22 Spencer Tyler DO [address] [place] [address] PCP - [facility] 08/02/23 Vinny Huff DO [address] [place] [address] Otolaryngology 09/29/23 Vinny Huff DO [address] [place] [address] Otolaryngology 11/02/23 Polo Coach Relationship Specialty Start Date End Date Joey Daniel MD [address] [place] [address] PCP - General Internal Medicine 11/26/22 Spencer Tyler DO [address] [place] [address] PCP - [facility] 08/02/23 Vinny Huff DO [address] [place] [address] Otolaryngology 09/29/23 Vinny Huff DO [address] [place] [address] Otolaryngology 11/02/23 Polo Coach Relationship Specialty Start Date End Date Joey Daniel MD [address] [place] [address] PCP - General Internal Medicine 11/26/22 Spencer Tyler DO [address] [place] [address] PCP - [facility] 08/02/23 Vinny Huff, [address] [place] [address] Otolaryngology 09/29/23 Vinny Huff DO [address] [place] [address] Otolaryngology 11/02/23 Polo Coach Relationship Specialty Start Date End Date Joey Daniel MD [address] [place] [address] PCP - General Internal Medicine 11/26/22 Spencer Tyler DO [address] [place] [address] PCP - [facility] 08/02/23 Vinny Huff DO [address] [place] [address] Otolaryngology 09/29/23 Vinny Huff DO [address] [place] [place] [address] Otolaryngology 11/02/23 Polo Coach Relationship Specialty Start Date End Date Joey Daniel MD [address] [place] [address] PCP - General Internal Medicine 11/26/22 Spencer Tyler DO [address] [place] [address] PCP - [facility] 08/02/23 Vinny Huff DO [address] [place] [address] Otolaryngology 09/29/23 Vinny Huff DO [address] [place] [address] Otolaryngology 11/02/23 Polo Coach Relationship Specialty Start Date End Date Joey Daniel MD [address] [place] [address] PCP - General Internal Medicine 11/26/22 Spencer Tyler DO [address] [place] [address] PCP - [facility] 08/02/23 Vinny Huff DO [address] [place] [address] Otolaryngology 09/29/23 Vinny Huff DO [address] [place] [address] Otolaryngology 11/02/23 Polo Coach Relationship Specialty Start Date End Date Joey Daniel MD [address] [place] [address] PCP - General Internal Medicine 11/26/22 Spencer Tyler DO [address] [place] [address] PCP - [facility] 08/02/23 Vinny Huff DO [address] [place] [address] Otolaryngology 09/29/23 Vinny Huff, [address] [place] [address] Otolaryngology 11/02/23 Polo Coach Relationship Specialty Start Date End Date Joey Daniel MD [address] [place] [address] PCP - General Internal Medicine 11/26/22 Spencer Tyler DO [address] [place] [address] PCP - [facility] 08/02/23 Vinny Huff DO [address] [place] [address] Otolaryngology 09/29/23 Vinny Huff DO [address] [place] [address] Otolaryngology 11/02/23 Polo Coach Relationship Specialty Start Date End Date Joey Daniel MD [address] [place] [address] PCP - General Internal Medicine 11/26/22 Spencer Tyler DO [address] [place] [address] PCP - [facility] 08/02/23 Vinny Huff DO [address] [place] [address] Otolaryngology 09/29/23 Vinny Huff, DO [address] [place] [address] Otolaryngology 11/02/23 Polo Coach Relationship Specialty Start Date End Date Joey Daniel MD [address] [place] [address] PCP - General Internal Medicine 11/26/22 Spencer Tyler DO [address] [place] [address] PCP - [facility] 08/02/23 Vinny Huff, DO [address] [place] [address] Otolaryngology 09/29/23 Vinny Huff, DO [address] [place] [address] Otolaryngology 11/02/23 Polo Coach Relationship Specialty Start Date End Date Joey Daniel MD [address] [place] [address] PCP - General Internal Medicine 11/26/22 Spencer Tyler DO [address] [place] [address] PCP - [facility] 08/02/23 Vinny Huff DO [address] [place] [address] Otolaryngology 09/29/23 Vinny Huff, DO [address] [place] [address] Otolaryngology 11/02/23 Polo Coach Relationship Specialty Start Date End Date Joey Daniel MD [address] [place] [address] PCP - General Internal Medicine 11/26/22 Spencer Tyler, DO [address] [place] [address] PCP - [facility] 08/02/23 Vinny Huff, DO [address] [place] [address] Otolaryngology 09/29/23 Vinny Huff, DO [address] [place] [address] Otolaryngology 11/02/23 Polo Coach Relationship Specialty Start Date End Date Joey Daniel MD [address] [place] [address] PCP - General Internal Medicine 11/26/22 Spencer Tyler DO [address] [place] [address] PCP - [facility] 08/02/23 Vinny Huff, DO [address] [place] [address] Otolaryngology 09/29/23 Vinny Huff, DO [address] [place] [address] Otolaryngology 11/02/23 Polo Coach Relationship Specialty Start Date End Date Joey Daniel MD [address] [place] [address] PCP - General Internal Medicine 11/26/22 Spencer Tyler, DO [address] [place] [address] PCP - [facility] 08/02/23 Vinny Huff, DO [address] [place] [place] [address] Otolaryngology 09/29/23 Vinny Huff, DO [address] [place] [address] Otolaryngology 11/02/23 Reason for Visit (unrecogniz ed section and content) Reason Onset Date Comments Med Refill 02/11/2024 Reason Onset Date Comments Med Refill 03/10/2024 Reason Comments Post-op Reason Onset Date Comments Med Refill 04/11/2024 Reason Onset Date Comments Med Refill 01/06/2024 Reason Onset Date Comments Med Refill 01/10/2024 Reason Comments 3 Month OV Reason Onset Date Comments Med Refill 05/01/2024 Reason Comments 3 Month Follow-up of Chronic Conditions Review lab drawn 04/17/2024 Reason Onset Date Comments Med Refill 05/11/2024 Reason Onset Date Comments Med Refill 05/25/2024 Reason Onset Date Comments Med Refill 06/09/2024 Reason Onset Date Comments Med Refill 06/26/2024 Reason Onset Date Comments Med Refill 08/08/2024 Reason Onset Date Comments Med Refill 08/14/2024 Reason Onset Date Comments Med Refill 09/06/2024 Reason Comments 3 Month Follow-up of Chronic Conditions Review lab drawn 08/29/2024 Reason Onset Date Comments Med Refill 09/19/2024 Reason Onset Date Comments Med Refill 10/05/2024 Reason Onset Date Comments Med Refill 11/05/2024 Reason Onset Date Comments Med Refill 12/04/2024 Reason Onset Date Comments Med Refill 12/25/2024 Reason Onset Date Comments Med Refill 01/04/2025 FOR RECORDS PERTAINING TO PATIENTS WHO ARE OR HAVE BEEN ENROLLED IN A CHEMICAL DEPENDENCY/SUBSTANCEABUSE PROGRAM, SOME INFORMATION MAY BE OMITTED. This clinical summary was aggregated from multiple sources. Caution should be exercised in using it in the provision of clinical care. This summary normalizes information from multiple sources, and as a consequence, information in this document may materially change the coding, format and clinical context of patient data. In addition, data may be omitted in some cases. CLINICAL DECISIONS SHOULD BE BASED ON THE PRIMARY CLINICAL RECORDS. [facility] [employer] [facility]. provides no warranty or guarantee of the accuracy or completeness of information in this document.
== END 2025-01-15 13:00 | disposition home or self-care (01) ==
LOC: LAB 12:59
PROVIDERS: PCP Internal Medicine; Visit Provider Internal Medicine
DX: R74.8 Abnormal levels of other serum enzymes (principal); E56.1 Deficiency of vitamin K; E50.9 Vitamin A deficiency, unspecified
CPT/HCPCS: 36415; 84597

== ENCOUNTER 2025-01-15 13:00 | Outpatient (OUT) | payer OTHER, SELFPAY ==
--- OUTSIDE RECORDS SUMMARY | 2025-01-15 13:06 | XMS_ITS | Encounter Summary ---
Author Organization [facility] Address [address] [place] [address] Care Team Providers Care Trader Fixed Income Name Role Phone Chaka Leonardo MD Primary Care Provider [phone] Spencer Tyler DO Unavailable [phone] Vinny Huff DO Unavailable [phone] Vinny Huff DO Unavailable [phone] Encounter Details Date Type Department Care Team (Late Contact Info) Description 10/27/2023 External Result Encounter [facility] External Department Unsolicited Vinny Huff, DO [address] [place] [address] Social History Tobacco Use Types Packs/Day Years Used Date Smoking Tobacco: Never Smokeless Tobacco: Never Alcohol Use Standard Drinks/Week Comments Never 0 (1 standard drink = 0.6 oz pure alcohol) caffeine- Diet Pop, 4 cans daily. 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 Not on file Not on file documented as of this encounter Plan of Treatment Upcoming Encounters Date Type Department Care Team (Late Contact Info) Description 01/16/2025 2:30 PM EDT Office Visit [facility] [address] [place] [address] 02/15/2025 1:30 PM EDT Ancillary Procedure [facility] [address] [place] [address] documented as of this encounter Procedures Procedure Name Priority Date/Time Associated Diagnosis Comments NM PARATHYROID SPECT 10/27/2023 12:51 PM EDT documented in this encounter Results * NM parathyroid spect (10/27/2023 12:51 PM EDT) Anatomical Region Laterality Modality Nuclear Medicine 10/27/2023 12:5 1 PM EDT Impressions 10/27/2023 12:57 PM EDT There is redemonstration of subtle asymmetric persistent radiotracer accumulation along the inferior margin of the left thyroid bed. This is unchanged when compared to the prior exam. A small parathyroid adenoma is suspected. Impression dictated by: Jay Paz M.D.10/27/2023 12:55 PM Dictation Location: [place] [address] Transcribed By: [facility] 10/27/23 1255 Dictated By: Jay Paz II, MD 10/27/23 1251 Signed By: <Electronically signed by Jay Paz II, MD in OV> 10/27/23 1255 Narrative 10/27/2023 12:57 PM EDT [facility] Main [address] [address] Nuclear Medicine Report Signed Patient: Kathy Croft MR#: [id number] : 1970 Acct:[id number] Age/Sex: 53 / F ADM Date: 10/27/23 Loc: NM Room: [facility] Attending Dr: Vinny Huff DO Copies to: DO Jay Lara II, MD Ordering Provider: Vinny Huff DO Date of Service: 10/27/23 NM/NM*parathyroid SPECT*: E21.3 NM*parathyroid SPECT* 10/27/2023 9:14 AM SIGNS AND SYMPTOMS: Hypercalcemia, hyperparathyroidism PROTOCOL: Scintigraphic images of the neck were obtained after intravenous radiotracer administration. Images were obtained at 15 minutes and 2 hours. SPECT images were performed with reconstruction and 3-D, axial, sagittal, and coronal planes. COMPARISON: 02/10/2021 RADIOPHARMACEUTICAL: 22.5 mCi of intravenous technetium 99m sestamibi FINDINGS: There is physiologic radiotracer accumulation in the salivary glands and thyroid tissue. There is also physiologic radiotracer accumulation within the liver and within the myocardium. There is redemonstration of subtle asymmetric persistent radiotracer accumulation along the inferior margin of the left thyroid bed. This is unchanged when compared to the prior exam. NM/NM*parathyroid SPECT* Procedure Note Radiology, Radiologist, - 10/27/2023 [facility] Main [place] [address] [place] [address] Nuclear Medicine Report Signed Patient: Kathy Croft LMR#: [id number] : 1970Acct:[id number] Age/Sex: 53 / FADM Date: 10/27/23 Loc: [place] Room:[facility] Attending Dr: Vinny Huff DO Copies to: DO Jay Lara II, MD Ordering Provider: Vinny Huff DO Date of Service: 10/27/23 NM/NM*parathyroid SPECT*: E21.3 NM*parathyroid SPECT* 10/27/2023 9:14 AM SIGNS AND SYMPTOMS: Hypercalcemia, hyperparathyroidism PROTOCOL: Scintigraphic images of the neck were obtained after intravenousradiotracer administration. Images were obtained at 15 minutes and 2 hours. SPECTimages were performed with reconstruction and 3-D, axial, sagittal, and coronal planes. COMPARISON: 02/10/2021 RADIOPHARMACEUTICAL: 22.5 mCi of intravenous technetium 99m sestamibi FINDINGS: There is physiologic radiotracer accumulation in the salivary glands andthyroid tissue. There is also physiologic radiotracer accumulation within the liver and within themyocardium. There is redemonstration of subtle asymmetric persistent radiotraceraccumulation along the inferior margin of the left thyroid bed. This is unchanged when compared to theprior exam. NM/NM*parathyroid SPECT* IMPRESSION: There is redemonstration of subtle asymmetric persistent radiotraceraccumulation along the inferior margin of the left thyroid bed. This is unchanged when compared to theprior exam. A small parathyroid adenoma is suspected. Impression dictated by: Jay Paz M.D.10/27/2023 12:55 PM Dictation Location: [place] [address] Transcribed By: [facility] 10/27/23 1255 Dictated By: Jay Paz II, MD 10/27/23 1251 Signed By: <Electronically signed by Jay Paz II, MD inOV> 10/27/23 1255 us Vinny Huff DO IMG NM PROCEDURES Final Res ult documented in this encounter Visit Diagnoses Not on filedocumented in this encounter Additional Health Concerns Assessment Noted Time PHQ-9 Depression Total Score: 18 023 3:00 PM EDT documented as of this encounter Care Teams Trader Fixed Income Relationship Specialty Start Date End Date Chaka Leonardo MD [address] [place] [address] PCP - General Internal Medicine 11/26/22 Spencer Tyler DO [address] [place] [address] PCP - [facility] 08/02/23 Vinny Huff DO [address] [place] [address] Otolaryngology 09/29/23 Vinny Huff DO [address] [place] [address] Otolaryngology 11/02/23 documented as of this encounter
--- OUTSIDE RECORDS SUMMARY | 2025-01-15 13:06 | XMS_ITS | Encounter Summary ---
Author Organization [facility] Address [address] [place] [address] Care Team Providers Care Air Pumper Name Role Phone Chaka Leonardo MD Primary Care Provider [phone] Yolanda Singh BLANKET FOLDER Unavailable [phone] Spencer Tyler DO Unavailable [phone] Vinny Huff DO Unavailable [phone] Vinny Huff DO Unavailable [phone] Reason for Visit * Reason Comments Med Refill Encounter Details Date Type Department Care Team (Late st Contact Info) Description 05/05/2023 [facility]ill [facility] [address] [facility] [address] [place] [address] Vane Ghosh, BLANKET FOLDER [address] [place] [address] Viral upper respiratory tract infection Social History Tobacco Use Types Packs/Day Years Used Date Smoking Tobacco: Never Smokeless Tobacco: Never Alcohol Use Standard Drinks/Week Comments Never 0 (1 standard drink = 0.6 oz pure alcohol) caffeine- Diet Pop, 4 cans daily. 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 Not on file Not on file documented as of this encounter Plan of Treatment Upcoming Encounters Date Type Department Care Team (Late st Contact Info) Description 01/16/2025 2:30 PM EDT Office Visit [facility] [place] [facility] [address] [place] [id number] 02/15/2025 1:30 PM EDT Ancillary Procedure [facility] [address] [place] [phone] documented as of this encounter Visit Diagnoses Diagnosis Viral upper respiratory tract infection Acute upper respiratory infections of unspecified site documented in this encounter Additional Health Concerns Assessment Noted Time PHQ-9 Depression Total Score: 18 023 3:00 PM EDT documented as of this encounter Care Teams Air Pumper Relationship Specialty Start Date End Date Chaka Leonardo MD [address] [place] [address] PCP - General Internal Medicine 11/26/22 Yolanda Singh, BLANKET FOLDER [address] [place] [address] PCP - [facility] 10/31/22 Spencer Tyler, DO [address] [place] [address] PCP - [facility] 08/02/23 Vinny Huff, DO [address] [place] [address] Otolaryngology 09/29/23 Vinny Huff, DO [address] [place] [address] Otolaryngology 11/02/23 documented as of this encounter
--- OUTSIDE RECORDS SUMMARY | 2025-01-15 13:06 | XMS_ITS | Encounter Summary ---
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 Not on file Not on file documented as of this encounter Plan of Treatment Upcoming Encounters Date Type Department Care Team (Late Contact Info) Description 01/16/2025 2:30 PM EDT Office Visit [facility] [address] [place] [address] 02/15/2025 1:30 PM EDT Ancillary Procedure [facility] [address] [place] [address] documented as of this encounter Procedures Procedure Name Priority Date/Time Associated Diagnosis Comments ECG 12-LEAD 11/12/2023 12:34 PM EDT documented in this encounter Results * ECG 12 lead (11/12/2023 12:34 PM EDT) 11/12/2023 12:3 4 PM EDT [facility] 11/12/2023 4:35 PM EDT [facility] Main [address] [address] Electrocardiograph Report Signed Patient: Kathy Croft MR#: [id number] : 1970 Acct:[id number] Age/Sex: 53 / F ADM Date: 11/12/23 Loc: Room: Type: [facility] Attending Dr: Vinny Huff DO Ordering Provider: Vinny Huff DO Date of Service: 11/12/2304/25/1218 ECG/ECG 12 lead ECG: surgery 12/05 Copies to: Test Reason : Blood Pressure : */* mmHG Vent. Rate : 61 BPM Atrial Rate : 61 BPM P-R Int : 192 ms QRS Dur : 112 ms QT Int : 412 ms P-R-T Axes : 45 -43 6 degrees QTcB Int : 414 ms Normal sinus rhythm Left axis deviation Left ventricular hypertrophy ( R in aVL , Tushar product , Romhilt-Mcdaniel ) Nonspecific T wave abnormality Abnormal ECG When compared with ECG of 13-Feb-2021 17:31, No significant change was found Confirmed by MINO LANDIS FACCBIANCA ([id number]) on 11/12/2023 4:34:53 PM Referred By: Electronically Signed By: BIANCA ROJAS MD FACC Transcribed By: MUS Signed By Bianca Rojas MD, FACC 11/12/23 1634 Procedure Note Bianca Rojas MD - 11/12/2023 [facility] Main [place] [address] [place] [address] Electrocardiograph Report Signed Patient: Kathy Croft LMR#: [id number] : 1970Acct:[id number] Age/Sex: 53 / FADM Date: 11/12/23 Loc: Room:Type: [facility] Attending Dr: Vinny Huff DO Ordering Provider: Vinny Huff DO Date of Service: 11/12/2304/25/1218 ECG/ECG 12 lead ECG: surgery 12/05 Copies to: Test Reason : Blood Pressure : */* mmHG Vent. Rate : 61 BPM Atrial Rate : 61 BPM P-R Int : 192 ms QRS Dur : 112 ms QT Int : 412 ms P-R-T Axes : 45 -43 6 degrees QTcB Int : 414 ms Normal sinus rhythm Left axis deviation Left ventricular hypertrophy ( R in aVL , Tushar product , Romhilt-Mcdaniel) Nonspecific T wave abnormality Abnormal ECG When compared with ECG of 13-Feb-2021 17:31, No significant change was found Confirmed by MINO LANDIS [facility] ([id number]) on 11/12/2023 4:34:53 PM Referred By: Electronically Signed By: BIANCA ROJAS MD [facility] Transcribed By: MUS Signed By Bianca Rojas MD, [facility] 11/12/23 1634 us Vinny Huff DO ECG ORDERABLES Final Resul t [address] [address], documented in this encounter Visit Diagnoses Not on filedocumented in this encounter Additional Health Concerns Assessment Noted Time PHQ-9 Depression Total Score: 18 023 3:00 PM EDT documented as of this encounter Care Teams Inspector Watch Assembly Relationship Specialty Start Date End Date Chaka Leonardo MD [address] [place] [address] PCP - General Internal Medicine 11/26/22 Spencer Tyler DO [address] [place] [address] [facility] 08/02/23 Vinny Huff, DO [address] [place] [address] Otolaryngology 09/29/23 Vinny Huff, DO [address] [place] [address] Otolaryngology 11/02/23 documented as of this encounter
--- OUTSIDE RECORDS SUMMARY | 2025-01-15 13:06 | XMS_ITS | Encounter Summary ---
Author Organization [facility] Address [address] [place] [address] Care Team Providers Care Percussion Teacher Name Role Phone Chaka Leonardo MD Primary Care Provider [phone] Spencer Tyler DO Unavailable [phone] Vinny Huff DO Unavailable [phone] Vinny Huff DO Unavailable [phone] Encounter Details Date Type Department Care Team (Late Contact Info) Description [facility]/25/2023 [facility] [address] [facility] [address] [place] [address] Lisette Kong PA [address] [facility] [address] [place] [address] Social History Tobacco Use Types Packs/Day Years [...] 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 on file Not on file documented as of this encounter Plan of Treatment Upcoming Encounters Date Type Department Care Team (Late st Contact Info) Description 01/16/2025 2:30 PM EDT Office Visit [facility] [place] [facility] [address] [place] [address] 02/15/2025 1:30 PM EDT Ancillary Procedure [facility] [place] [facility] [address] [place] [address] documented as of this encounter Visit Diagnoses Not on filedocumented in this encounter Additional Health Concerns Assessment Noted Time PHQ-9 Depression Total Score: 18 023 3:00 PM EDT documented as of this encounter Care Teams Percussion Teacher Relationship Specialty Start Date End Date Chaka Leonardo MD [address] [place] [address] PCP - General Internal Medicine 11/26/22 Spencer Tyler DO [address] [place] [address] PCP - [facility] 08/02/23 Vinny Huff, [address] [place] [address] Otolaryngology 09/29/23 Vinny Huff DO [address] [place] [address] Otolaryngology 11/02/23 documented as of this encounter
--- OUTSIDE RECORDS SUMMARY | 2025-01-15 13:06 | XMS_ITS | Clinical Summary ---
Author Organization [facility] Address [address] [place] [address] Phone Care Team Providers Care Event Decorator And Designer Name Role Phone Chaka Leonardo MD Primary Care Provider Social History Tobacco Use Types Packs/Day Years Used Date Smoking Tobacco: Never Assessed Comments Unknown Sex and Gender Information Value Date Recorded Sex Assigned at Not on file Legal Sex Female 1:40 PM EST Gender Identity Not on file Sexual Orientation Not on file Last Filed Vital Signs Vital Sign Reading Time Taken Comments Blood Pressure 126/74 08/14/2021 1:45 PM EDT Pulse 112 07/30/2021 5:30 PM EDT Temperature 35.7 C (96.3 F) 07/30/2021 5:30 PM EDT Respiratory Rate 18 07/30/2021 5:30 PM EDT Oxygen Saturation 99% 07/30/2021 5:30 PM EDT Inhaled Oxygen Concentration - - Weight 88 kg (194 lb) 08/14/2021 1:45 PM EDT Height 167.6 cm (5' 5.98 ) 07/31/2021 6:02 AM ED T Body Mass Index 31.33 07/31/2021 6:02 AM EDT Plan of Treatment Not on file Medical Devices Implanted Type Area Core Composer Feeder Device Identifier Shelf Expiration Date Model / Serial / Lot Cement/W Barium, High Viscosity, Radiopaque, Kyphx Hv-R Case [id number] Implanted:Qty: 1 on 07/21/2021 by Randy Pro MD Implant [employer]:SOFAMOR DANEK 05/02/2023 [id number] / / [id number] Description:Converted from [facility]. Please see archived information for full log information. Set Screw, 5.5, Ti Ns Brk Off Case [id number] Implanted:Qty: 4 on 07/21/2021 by Randy Pro MD Implant [employer]:SOFAMOR DANEK [id number] / / Description:Converted from [facility]. Please see archived information for full log information. Union Dbf With Cannulas 9cc Case [id number] Implanted:Qty: 1 on 07/21/2021 by Randy Pro MD Implant [employer] 09/19/2022 [id number] / [id number] / Description:Converted from [facility]. Please see archived information for full log information. Additional Information:IGNACIO DBF WITH CANNULAS 9CCper bill only jdr 07/22/2021 Screw, Mas 6.5 X 50 Cc Case [id number] Implanted:Qty: 2 on 07/21/2021 by Randy Pro MD Implant [employer]:SOFAMOR DANEK [id number] / / Description:Converted from [facility]. Please see archived information for full log information. Screw, Mas 6.5 X 45 Cc Solera Case [id number] Implanted:Qty: 2 on 07/21/2021 by Randy Pro MD Spinal Hardware [employer]:SOFAMOR DANEK [id number] / / Description:Converted from [facility]. Please see archived information for full log information. Juan Pablo, Solera Chromoloy, 70mm Case [id number] Implanted:Qty: 2 on 07/21/2021 by Randy Pro MD Spinal Hardware [employer] [id number] / / Description:Converted from [facility]. Please see archived information for full log information. Pack, Bone Cement Hv-R Kyphx/Mixer Kyphon Case [id number] Implanted:Qty: 1 on 07/21/2021 by Randy Pro MD Spinal Hardware [employer]:SOFAMOR DANEK [id number] / / [id number] Description:Converted from [facility]. Please see archived information for full log information. Care Teams Event Decorator And Designer Relationship Specialty Start Date End Date Chaka Leonardo MD [address] [place] [address] PCP - General 05/08/21
--- OUTSIDE RECORDS SUMMARY | 2025-01-15 13:06 | XMS_ITS | Encounter Summary ---
Author Organization [facility] Address [address] [place] [address] Care Team Providers Care Wax Coating Machine Tender Name Role Phone Chaka Leonardo MD Primary Care Provider [phone] Spencer Tyler DO Unavailable [phone] Vinny Huff DO Unavailable [phone] Vinny Huff DO Unavailable [phone] Reason for Visit * Reason Onset Date Comments Med Refill 10/21/2023 Encounter Details Date Type Department Care Team (Late st Contact Info) Description 10/21/[address] 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 It was just filled on 10/07. * Telephone Encounter - Alyssa Ybarra LPN - 10/21/2023 12:54 PM EDT Pt requesting a refill on Alprazolam to [facility] documented in this encounter Plan of Treatment Upcoming Encounters Date Type Department Care Team (Late st Contact Info) Description 01/16/2025 2:30 PM EDT Office Visit [facility] [place] [facility] [address] [place] [address] 02/15/2025 1:30 PM EDT Ancillary Procedure [facility] [address] [place] [address] documented as of this encounter Visit Diagnoses Diagnosis Chronic pansinusitis Other chronic sinusitis Generalized anxiety disorder Generalized anxiety disorder documented in this encounter Additional Health Concerns Assessment Noted Time PHQ-9 Depression Total Score: 18 023 3:00 PM EDT documented as of this encounter Care Teams Wax Coating Machine Tender Relationship Specialty Start Date End Date Chaka Leonardo MD [address] [place] [address] PCP - General Internal Medicine 11/26/22 Spencer Tyler DO [address] [place] [address] PCP - [facility] 08/02/23 Vinny Huff DO [address] [place] [address] Otolaryngology 09/29/23 Vinny Huff DO [address] [place] [address] Otolaryngology 11/02/23 documented as of this encounter
--- OUTSIDE RECORDS SUMMARY | 2025-01-15 13:06 | XMS_ITS | Encounter Summary ---
Author Organization [facility] Address [address] [place] [address] Care Team Providers Care Android Framework Developer Name Role Phone Chaka Leonardo MD Primary Care Provider [phone] Yolanda Singh SUPERVISOR TYPE DISK QUALITY CONTROL Unavailable [phone] Spencer Tyler DO Unavailable [phone] Vinny Huff DO Unavailable [phone] Vinny Huff DO Unavailable [phone] Reason for Visit * Reason Onset Date Comments Med Refill 05/10/2023 Encounter Details Date Type Department Care Team (Late st Contact Info) Description 05/10/2023 Refill [facility] [address] [facility] [address] [place] [address] Vane Ghosh SUPERVISOR TYPE DISK QUALITY CONTROL [address] [place] [address] Viral upper respiratory tract infection Social History [...] 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 on file Not on file documented as of this encounter Plan of Treatment Upcoming Encounters Date Type Department Care Team (Late st Contact Info) Description 01/16/2025 2:30 PM EDT Office [facility] [address] [place] [address] 02/15/2025 1:30 PM EDT Ancillary Procedure [facility] [address] [place] [address] documented as of this encounter Visit Diagnoses Diagnosis Viral upper respiratory tract infection Acute upper respiratory infections of unspecified site documented in this encounter Additional Health Concerns Assessment Noted Time PHQ-9 Depression Total Score: 18 023 3:00 PM EDT documented as of this encounter Care Teams Android Framework Developer Relationship Specialty Start Date End Date Chaka Leonardo MD [address] [place] [address] PCP - General Internal Medicine 11/26/22 Yolanda Singh SUPERVISOR TYPE DISK QUALITY CONTROL [address] [place] [address] PCP - [facility] 10/31/22 Spencer Tyler, DO [address] [place] [address] PCP - [facility] 08/02/23 Vinny Huff, DO [address] [place] [address] Otolaryngology 09/29/23 Vinny Huff, DO [address] [place] [address] Otolaryngology 11/02/23 documented as of this encounter
--- OUTSIDE RECORDS SUMMARY | 2025-01-15 13:06 | XMS_ITS | Clinical Summary ---
Author Organization [facility] Address [address] [place] [address] Care Team Providers Care Wound Care Rn Name Role Phone Chaka Leonardo MD Primary Care Provider [phone] Spencer Tyler DO Unavailable [phone] Vinny Huff DO Unavailable [phone] Vinny Huff DO Unavailable [phone] Allergies Active Allergy Reactions Criticality Noted Date Comments Amitriptyline Low 11/24/2022 Other Reaction(s): sedation Iron Sucrose Hives Low 11/24/2022 Oxycodone GI intolerance Low 03/08/2023 Medications Multiple Vitamins-Minerals (Bariatric Multivitamins/Iron ) capsule 1 (one) time each day at the same time. Active beta carotene (vitamin A) 3 MG (11924 UT) capsule Take 10,000 Units by mouth in the morning. 900 MCG QD. Active cholecalciferol (Vitamin D-3) 250 MCG (87205 UT) capsule Take 1 capsule by mouth Daily Active phytonadione (,Vitamin K,) 1 MG capsuleIndications :S/P biliopancreatic diversion with duodenal switch,Vitamin K deficiency She takes 1,920 mcg daily, instructed to add 1 additional Vitamin K to regimen 10/11/19 24 Active zinc gluconate 50 MG tablet Every morning 11/12/19 24 Active loratadine (Claritin) 10 MG tabletIndications: Chronic pansinusitis Take 1 tablet (10 mg) by mouth Daily as needed for allergies 90 tablet 3 05/25/19 25 Active DULoxetine (Cymbalta) [address] capsuleIndications :Generalized anxiety disorder Take 1 capsule (60 mg) by mouth Daily 90 capsule 3 05/25/19 25 Active calcium citrate (Calcitrate) 950 (200 Ca) MG tabletIndications: S/P biliopancreatic diversion with duodenal switch Citracal 400 mg calcium and 500 international unit of Vitamin D take 2 tablets TID w/meals 09/13/19 25 Active ALPRAZolam (Xanax) 0.5 MG tabletIndications: Generalized anxiety disorder Take 1 tablet (0.5 mg) by mouth 2 (two) times a day as needed for anxiety 60 tablet 2 11/07/19 25 Active predniSONE (Deltasone) 10 MG tabletIndications: Rhus dermatitis Day 1-2 take 4 tabs orally by mouth once daily. Day 3-4 take 3 tabs. Day 5-6 take 2 tabs. Day 7-8 take 1 tab. Once daily for 8 days. 20 tablet 11/21/19 25 Active nystatin (Mycostatin) 960164 UNIT/GM powderIndications: Rash Apply topically in the morning and before bedtime. 30 g 5 12/05/19 25 Active pregabalin (Lyrica) 100 MG capsuleIndications :Chronic bilateral low back pain without sciatica Take 1 capsule (100 mg) by mouth in the morning and 1 capsule (100 mg) in the evening and 1 capsule (100 mg) before bedtime. 90 capsule 5 12/27/19 25 Active HYDROcodone-acetam inophen ([place]) 10-325 MG tabletIndications: Chronic bilateral low back pain without sciatica Take 0.5-1 tablets by mouth every 6 (six) hours if needed for severe pain 90 tablet 01/06/20 25 Active cyclobenzaprine (Flexeril) 10 MG tabletIndications: Chronic bilateral low back pain without sciatica Take 1 tablet (10 mg) by mouth as needed at bedtime for muscle spasms 90 tablet 3 01/13/20 25 Active pregabalin (Lyrica) 100 MG capsuleIndications :Chronic bilateral low back pain without sciatica Take 1 capsule (100 mg) by mouth in the morning and 1 capsule (100 mg) in the evening and 1 capsule (100 mg) before bedtime. 90 capsule 5 09/21/19 25 025 Disconti nued(Reo rder) HYDROcodone-acetam inophen ([place]) 10-325 MG tabletIndications: Chronic bilateral low back pain without sciatica Take 0.5-1 tablets by mouth every 6 (six) hours if needed for severe pain 90 tablet 12/05/19 25 025 Disconti nued(Reo rder) cyclobenzaprine (Flexeril) 10 MG tabletIndications: Chronic bilateral low back pain without sciatica Take 1 tablet (10 mg) by mouth as needed at bedtime for muscle spasms 90 tablet 3 12/14/19 25 025 Disconti nued(Reo rder) Active Problems Problem Noted Date Diagnosed Date Hyperparathyroidism 11/27/2022 Alkaline phosphatase raised 11/27/2022 Primary insomnia 11/27/2022 Iron deficiency anemia secon bob to inadequate dietary iron intake 11/27/2022 Other osteoporosis without current pathological fracture 11/27/2022 Vitamin A deficiency 11/27/2022 Vitamin D deficiency 11/27/2022 Vitamin E deficiency 11/27/2022 Vitamin K deficiency 11/27/2022 S/P biliopancreatic diversion with duodenal swit ch 11/27/2022 Fibromyalgia 11/27/2022 Chronic bilateral low back pain without sciatica 10/19/2022 Generalized anxiety disorder 2022 Peripheral venous insufficiency 05/08/2015 Vitamin B12 deficiency 04/09/2014 Resolved Problems Problem Noted Date Diagnosed Date Resolved Date Anxiety 12/02/2022 03/05/2023 Nontoxic single thyroid nodule 01/08/2021 03/12/2023 Encounters Date Type Department Care Team Description 01/12/2025 Refill [facility] [address] [place] [address] Chaka Leonardo MD Chronic bilateral low back pain without sciatica 01/10/2025 Telephone [facility] [address] [place] [address] Alyssa Ybarra LPN Lab Orders 01/04/2025 Refill [facility] [address] [place] [address] Randy Vanegas, MANAGER TRANSFUSION Chronic bilateral low back pain without sciatica 12/25/2024 Refill [facility] [address] [place] [address] Chaka Leonardo MD Chronic bilateral low back pain without sciatica 12/13/2024 Refill [facility] [address] [place] [address] Chaka Leonardo MD Chronic bilateral low back pain without sciatica 12/04/2024 Refill [facility] [address] [place] [address] Val Nelson, MANAGER TRANSFUSION Rash 12/04/2024 Refill [facility] [address] [place] [address] Chaka Leonardo MD Chronic bilateral low back pain without sciatica 11/20/2024 12:30 PM EDT Office Visit [facility] [address] [place] [address] Evie Decker PA Rhus dermatitis (Primary Dx) 11/20/2024 Travel 11/19/2024 Refill [facility] [address] [place] [address] Chaka Leonardo MD Generalized anxiety disorder 11/05/2024 Refill [facility] [address] [place] [address] Chaka Leonardo MD Generalized anxiety disorder ; Chronic bilateral low back pain without sciatica from Last 3 Months Immunizations Immunization Administration Dates Next Due Influenza, Madin Elisa Canin e Kidney, subunit, trivalent, injectable, contains preservative 05/04/2024 Influenza, injectable, MDCK, preservative free, quadrivalent 03/08/2023,01/28/2022,02/24/2021,2019 Influenza, injectable, MDCK, quadrivalent 01/18/2019 Family History Medical History Relation Name Comments COPD Father Eliel Hearing loss Father Eliel Heart disease Father Eliel Hypertension Father Eliel Hypertension Mother Ella Relation Name Status Comments Father Eliel Alive Mother Ella Alive Social History Tobacco Use Types Packs/Day Years Used Date Smoking Tobacco: Never Smokeless Tobacco: Never Tobacco Cessation:Counseling Given: Not Answered Alcohol Use Standard Drinks/Week Comments Never 0 (1 standard drink = 0.6 oz pure alcohol) caffeine- Diet Pop, 4 cans daily. 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 on file Not on file Last Filed Vital Signs Vital Sign Reading Time Taken Comments Blood Pressure 128/84 11/20/2024 12:31 PM EDT Pulse 94 11/20/2024 12:31 PM EDT Temperature 36.4 C (97.5 F) 11/20/2024 12:31 PM EDT Respiratory Rate - - Oxygen Saturation 99% 11/20/2024 12:31 PM EDT Inhaled Oxygen Concentration - - Weight 90.7 kg (200 lb) 11/20/2024 12:31 PM EDT Height 167.6 cm (5' 6 ) 09/12/2024 1:08 PM EDT Body Mass Index 32.28 09/12/2024 1:08 PM EDT Plan of Treatment Upcoming Encounters Date Type Department Care Team (Late st Contact Info) Description 01/16/2025 2:30 PM EDT Office Visit [facility] [address] [place] [address] 02/15/2025 1:30 PM EDT Ancillary Procedure [facility] [address] [place] [address] Health Maintenance Due Date Last Done Comments CT Colonography 1969 FIT 1969 FOBT 1969 Sigmoidoscopy 1969 HPV/Cotest 10/13/1999 Cervical Cancer Screening 03/11/2024 Pap Smear 03/11/2024 03/11/2021 Mammogram 09/15/2024 09/16/2023, 04/2 08/2022, 04/09/2020, Additional history exists Influenza Vaccine (#1) 2025 , 03/08/2023, 01/28/2022, Additional history exists FIT-DNA 03/11/2025 03/11/2022 Colonoscopy 09/24/2031 09/23/2021, 09/23/2021 Colorectal Cancer Screening 09/24/2031 Procedures Procedure Name Priority Date/Time Associated Diagnosis Comments BI MAMMOGRAM SCREENING TOMOSYNTHESIS BILATERAL Routine 09/16/2023 3:17 PM EDT Encounter for screening mammogram for malignant neoplasm of breast LAB COLOGUARD COLON CANCER SCREEN Routine 03/11/2022 COLONOSCOPY Routine 09/23/2021 12:00 PM EDT THINPREP TIS PAP AND HPV MRNA E6/E7 REFLEX HPV 16,18/45 ([id number]) Routine 03/11/2021 from Last 3 Months or Most Recently Relevant to Health Maintenance Results * Bilateral screening mammogram with tomosynthesis (09/16/2023 3:17 PM EDT) Anatomical Region Laterality Modality Breast Bilateral Mammography 09/22/2023 10:3 9 AM EDT Impressions 09/22/2023 10:44 AM EDT BI-RADS 1- NEGATIVE. ROUTINE FOLLOW-UP MAMMOGRAPHY IS SUGGESTED IN ONE YEAR. DENSITY: Almost entirely fat. Board Certified Radiologists. Accredited by the ACR and FDA. MAMMOGRAPHY IS VERY IMPORTANT TO YOUR HEALTH. THE [place] [employer] SOCI[employer] GUIDELINES RECOMMEND THAT WOMEN 40 YEARS OF AGE AND OLDER SHOULD HAVE A MAMMOGRAM EVERY YEAR. A REMINDER LETTER WILL BE SENT AT THE APPROPRIATE TIME. ELECTRONICALLY SIGNED BY: DO Elvia Jerry 09/22/2023 10:44 AM EDT ReplacedBI MAMMOGRAM SCREENING TOMOSYNTHESIS BILATERAL : 09/16/2023 3:04 PM CLINICAL HISTORY: screening. COMPARISONS: April 09, 2020 through August 24, 2022. TECHNIQUE: Routine full field 3D breast tomosynthesis was performed bilaterally. CAD analysis was performed and used in the interpretation. FINDINGS: Both breasts remain nearly fatty replaced. There are no developing masses, suspicious microcalcifications, or areas of architectural distortion identified on today's examination. There is no significant change when compared to the prior examinations identified, given differences in technique and positioning. Procedure Note Koko Bruce DO - 09/22/2023 ReplacedBI MAMMOGRAM SCREENING TOMOSYNTHESIS BILATERAL : 09/16/2023 3:04PM CLINICAL HISTORY: screening. COMPARISONS: April 09, 2020 through August 24, 2022. TECHNIQUE: Routine full field 3D breast tomosynthesis was performedbilaterally. CAD analysis was performed and used in the interpretation. FINDINGS: Both breasts remain nearly fatty replaced. There are no developing masses, suspicious microcalcifications, or areasof architectural distortion identified on today's examination. There is no significant change when compared to the prior examinationsidentified, given differences in technique and positioning. IMPRESSION: BI-RADS 1- NEGATIVE. ROUTINE FOLLOW-UP MAMMOGRAPHY IS SUGGESTED IN ONE YEAR. DENSITY: Almost entirely fat. Board Certified Radiologists. Accredited by the ACR and FDA. MAMMOGRAPHY IS VERY IMPORTANT TO YOUR HEALTH. THE [place] CANCER SOCIETYGUIDELINES RECOMMEND THAT WOMEN 40 YEARS OF AGE AND OLDER SHOULD HAVE AMAMMOGRAM EVERY YEAR. A REMINDER LETTER WILL BE SENT AT THE APPROPRIATE TIME. ELECTRONICALLY SIGNED BY: Koko Bruce DO Lisette BRISENO IMG BI PROCEDURES Final Res ult * Cologuard?? colon cancer screening (03/11/2022) COLOGUARD RESULT REPORTABLE Cancelled - Order Not Applicable [facility] 03/11/2022 Monica Burger DO LAB MOLECULAR DIAGNOSTICS ORDERABLES Final Result [facility] * Colonoscopy (09/23/2021 12:00 PM EDT) Anatomical Region Laterality Modality Endoscopy 09/23/2021 12:0 0 PM EDT Narrative 09/23/2021 12:00 PM EDT PERFORMED AT [facility] LOCATION:[id number] normal Procedure Note CONVERSION, GENERIC - 09/16/2022 PERFORMED AT [facility] LOCATION:[id number] normal Chaka Leonardo MD ENDOSCOPY PROCEDURE ORDERABLES Final Result * THINPREP TIS PAP AND HPV MRNA E6/E7 REFLEX HPV 16,18/45 ([id number]) (03/11/2021) CLINICAL INFORMATION: None given [facility] LMP: NONE GIVEN [facility] PREV. PAP: NONE GIVEN [facility] PREV. BX: NONE GIVEN [facility] SOURCE: Cervix, Endocervix [facility] STATEMENT OF ADEQUACY: SEE COMMENT [facility] Comment: Satisfactory for evaluation. Endocervical/transformation zone component present. INTERPRETATION/RE SULT: Negative for intraepithelial lesion or malignancy. [facility] COMMENT: This Pap test has been evaluated with computer assisted technology. [facility] STEAM BLOCKER: SEE COMMENT [facility] Comment: LLT, CT(ASCP) CT screening location: [place] [address]. REVIEW STEAM BLOCKER: SEE COMMENT [facility] Comment: PCJ, SCT(ASCP) CT screening location: [place] [address]. COMMENT SEE COMMENT [facility] Comment: EXPLANATORY NOTE: The Pap is a screening test for cervical cancer. It is not a diagnostic test and is subject to false negative and false positive results. It is most reliable when a satisfactory sample, regularly obtained, is submitted with relevant clinical findings and history, and when the Pap result is evaluated along with historic and current clinical information. HPV MRNA E6/E7 Not Detected Not Detected [facility] Comment: Methodology: Escort Patients-Mediated Amplification This assay detects E6/E7 viral messenger RNA (mRNA) from 14 high-risk HPV types (16,18,31,33,35,39,45,51,52,56,58,59,66,68). The analytical performance characteristics of this assay have been determined by [employer]. The modifications have not been cleared or approved by the FDA. This assay has been validated pursuant to the CLIA regulations and is used for clinical purposes. For additional information, please refer to http://education.InComm/faq/LHW636z7 (This link if provided for information/ educational purposes only.) 03/11/2021 Monica Burger DO [facility] Final Resu lt [facility] from Last 3 Months or Most Recently Relevant to Health Maintenance Insurance [employer] Care Teams Wound Care Rn Relationship Specialty Start Date End Date Chaka Leonardo MD [address] [place] [address] PCP - General Internal Medicine 11/26/22 Spencer Tyler DO [address] [place] [address] PCP - [facility] 08/02/23 Vinny Huff DO [address] [place] [address] Otolaryngology 09/29/23 Vinny Huff, [address] [place] [address] Otolaryngology 11/02/23
--- OUTSIDE RECORDS SUMMARY | 2025-01-15 13:07 | XMS_ITS | Encounter Summary ---
Author Organization [facility] Address [address] [place] [address] Care Team Providers Care Dinkey Engineer Name Role Phone Chaka Leonardo MD Primary Care Provider Spencer Tyler DO Unavailable [phone] Vinny Huff DO Unavailable [phone] Vinny Huff DO Unavailable [phone] Reason for Visit * Reason Onset Date Comments Med Refill 11/19/2024 Encounter Details Date Type Department Care Team (Late st Contact Info) Description 11/19/[facility] [address] [facility] [address] [place] [address] Chaka Leonardo MD [address] [facility] [address] [place] [address] Generalized anxiety disorder Social History Tobacco Use [...] 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 [facility] [place]. They state she did sampler pickup her RX on 11/06/24. * Telephone Encounter - Chaka Leonardo MD - 11/21/2024 10:13 AM EDT See question below. * Telephone Encounter - Chaka Leonardo MD - 11/20/2024 10:02 AM EDT This was just filled on 11/06 so not sure why she is requesting this so early? documented in this encounter Plan of Treatment Upcoming Encounters Date Type Department Care Team (Late st Contact Info) Description 01/16/2025 2:30 PM EDT Office Visit [facility] [address] [place] [address] 02/15/2025 1:30 PM EDT Ancillary Procedure [facility] [address] [place] [address] documented as of this encounter Visit Diagnoses Diagnosis Generalized anxiety disorder Generalized anxiety disorder documented in this encounter Additional Health Concerns Assessment Noted Time PHQ-9 Depression Total Score: 18 023 3:00 PM EDT documented as of this encounter Care Teams Dinkey Engineer Relationship Specialty Start Date End Date Chaka Leonardo MD [address] [place] [address] PCP - General Internal Medicine 11/26/22 Spencer Tyler DO [address] [place] [address] [facility] 08/02/23 Vinny Huff DO [address] [place] [address] Otolaryngology 09/29/23 Vinny Huff DO [address] [place] [address] Otolaryngology 11/02/23 documented as of this encounter
--- OUTSIDE RECORDS SUMMARY | 2025-01-15 13:07 | XMS_ITS | Encounter Summary ---
Author Organization [facility] Address [address] [facility] [place] [address] Care Team Providers Care Invertebrate Paleontologist Name Role Phone Chaka Leonardo MD Primary Care Provider [phone] Yolanda Singh ARM MAKER Unavailable [phone] Spencer Tyler DO Unavailable [phone] Vinny Huff DO Unavailable [phone] Vinny Huff DO Unavailable [phone] Encounter Details Date Type Department Care Team (Late Contact Info) Description 06/30/2023 Orders Only [facility] [address] [facility] [address] [place] [address] A, Unknown Practice [address] [place], [place] [address] Social History Tobacco Use Types Packs/Day Years [...] 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 Not on file documented as of this encounter Plan of Treatment Upcoming Encounters Date Type Department Care Team (Late Contact Info) Description 01/16/2025 2:30 PM EDT Office Visit [facility] [place] [facility] [address] [place] [address] 02/15/2025 1:30 PM EDT Ancillary Procedure [facility] [address] [place] [address] documented as of this encounter Procedures Procedure Name Priority Date/Time Associated Diagnosis Comments SCANNED LABS Routine 06/29/2023 2:39 PM EST documented in this encounter Results * SCANNED LABS (06/29/2023 2:39 PM EST) us Unknown Practice A LAB CHG PERFORMABLES Final Re sult documented in this encounter Visit Diagnoses Not on filedocumented in this encounter Additional Health Concerns Assessment Noted Time PHQ-9 Depression Total Score: 18 023 3:00 PM EDT documented as of this encounter Care Teams Invertebrate Paleontologist Relationship Specialty Start Date End Date Chaka Leonardo MD [address] [place] [address] PCP - General Internal Medicine 11/26/22 Yolanda Singh, ARM MAKER [address] [place] [address] PCP - [facility] 10/31/22 Spencer Tyler DO [address] [place] [address] PCP - [facility] 08/02/23 Vinny Huff DO [address] [place] [address] Otolaryngology 09/29/23 Vinny Huff DO [address] [place] [address] Otolaryngology 11/02/23 documented as of this encounter
--- OUTSIDE RECORDS SUMMARY | 2025-01-15 13:07 | XMS_ITS | Encounter Summary ---
Author Organization [facility] Address [address] [place] [address] Care Team Providers Care It Systems Manager Name Role Phone Chaka Leonardo MD Primary Care Provider [phone] Spencer Tyler DO Unavailable [phone] Vinny Huff DO Unavailable [phone] Vinny Huff DO Unavailable [phone] Reason for Visit * Reason Onset Date Comments Lab Orders 01/10/2025 Encounter Details Date Type Department Care Team (Late st Contact Info) Description 01/10/2025 Telephone [facility] [address] [facility] [address] [place] [address] Alyssa Ybarra LPN Lab Orders Social History Tobacco Use Types Packs/Day Years [...] 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 Left message on Pt's Voice Mail * Telephone Encounter - Alyssa Ybarra LPN - 01/10/2025 8:53 AM EDT ----- Message from Alyssa sent at 01/18/2024 9:38 AM EDT ----- SIEP SFLCA in one year external lab documented in this encounter Plan of Treatment Upcoming Encounters Date Type Department Care Team (Late st Contact Info) Description 01/16/2025 2:30 PM EDT Office Visit [facility] [address] [place] [address] 02/15/2025 1:30 PM EDT Ancillary Procedure [facility] [address] [place] [address] Scheduled Orders Name Type Priority Associated Diagnoses Orde r Schedule Comprehensive metabolic panel Lab Routine Vitamin A deficiency Iron deficiency anemia secondary to inadequate dietary iron intake Expected: 01/10/2025, Expires: 05/12/2025 Vitamin A Lab Routine Vitamin A deficiency Iron deficiency anemia secondary to inadequate dietary iron intake Expected: 01/10/2025, Expires: 05/12/2025 FREE K+L LT CHAINS,QN,S Lab Routine Vitamin A deficiency Iron deficiency anemia secondary to inadequate dietary iron intake Expected: 01/10/2025, Expires: 05/12/2025 Protein electrophoresis, serum Lab Routine Vitamin A deficiency Iron deficiency anemia secondary to inadequate dietary iron intake Expected: 01/10/2025, Expires: 05/12/2025 documented as of this encounter Visit Diagnoses Diagnosis Vitamin A deficiency Iron deficiency anemia secondary to inadequate dietary iron intake documented in this encounter Additional Health Concerns Assessment Noted Time PHQ-9 Depression Total Score: 18 08/ 023 3:00 PM EDT documented as of this encounter Care Teams It Systems Manager Relationship Specialty Start Date End Date Chaka Leonardo MD [address] [place] [address] PCP - General Internal Medicine 11/26/22 Spencer Tyler DO [address] [place] [address] PCP - [facility] 08/02/23 Vinny Huff DO [address] [place] [address] Otolaryngology 09/29/23 Vinny Huff DO [address] [place] [address] Otolaryngology 11/02/23 documented as of this encounter
--- OUTSIDE RECORDS SUMMARY | 2025-01-15 13:07 | XMS_ITS | Encounter Summary ---
Author Organization [facility] Address [address] [place] [address] Care Team Providers Care Electroneurodiagnostic Technician Name Role Phone Chaka Leonardo MD Primary Care Provider [phone] Spencer Tyler DO Unavailable [phone] Vinny Huff DO Unavailable [phone] Vinny Huff DO Unavailable [phone] Reason for Visit * Reason Onset Date Comments Med Refill 01/12/2025 Encounter Details Date Type Department Care Team (Late st Contact Info) Description 01/12/2025 Refill [facility] Internal Medicine [address] [facility] [address] [place] [address] Chaka Leonardo MD [address] [facility] [address] [place] [address] Chronic bilateral low back pain without sciatica Social History Tobacco Use Types Packs/Day Years [...] 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 file Not on file documented as of this encounter Miscellaneous Notes * Telephone Encounter - Victor Manuel Phillips MA - 01/12/2025 8:26 AM EDT Rx sent documented in this encounter Plan of Treatment Upcoming Encounters Date Type Department Care Team (Late st Contact Info) Description 01/16/2025 2:30 PM EDT Office Visit [facility] [place] [facility] [address] [place] [phone] 02/15/2025 1:30 PM EDT Ancillary Procedure [facility] [address] [place] [phone] documented as of this encounter Visit Diagnoses Diagnosis Chronic bilateral low back pain without sciatica documented in this encounter Additional Health Concerns Assessment Noted Time PHQ-9 Depression Total Score: 18 023 3:00 PM EDT documented as of this encounter Care Teams Electroneurodiagnostic Technician Relationship Specialty Start Date End Date Chaka Leonardo MD [address] [place] [address] PCP - General Internal Medicine 11/26/22 Spencer Tyler DO [address] [place] [address] PCP - [facility] 08/02/23 Vinny Huff, DO [address] [place] [address] Otolaryngology 09/29/23 Vinny Huff DO [address] [place] [address] Otolaryngology 11/02/23 documented as of this encounter
--- OUTSIDE RECORDS SUMMARY | 2025-01-15 13:07 | XMS_ITS | Encounter Summary ---
Author Organization [facility] Address [address] [place] [address] Care Team Providers Care Gut Snatcher Name Role Phone Chaka Leonardo MD Primary Care Provider [phone] Spencer Tyler DO Unavailable [phone] Vinny Huff DO Unavailable [phone] Vinny Huff DO Unavailable Reason for Visit * Reason Onset Date Comments Med Refill 01/04/2025 Encounter Details Date Type Department Care Team (Late st Contact Info) Description 01/04/2025 [facility] [address] [facility] [address] [place] [address] Randy Vanegas, VAULT INSTALLER [address] [facility] [address] [place] [address] Chronic bilateral low back pain without sciatica [...] Industry 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 Not on file Not on file documented as of this encounter Plan of Treatment Upcoming Encounters Date Type Department Care Team (Late st Contact Info) Description 01/16/2025 2:30 PM EDT Office Visit [facility] [place] [facility] [address] [place] [phone] 02/15/2025 1:30 PM EDT Ancillary Procedure [facility] [address] [place] [phone] documented as of this encounter Visit Diagnoses Diagnosis Chronic bilateral low back pain without sciatica documented in this encounter Additional Health Concerns Assessment Noted Time PHQ-9 Depression Total Score: 18 023 3:00 PM EDT documented as of this encounter Care Teams Gut Snatcher Relationship Specialty Start Date End Date Chaka Leonardo MD [address] [place] [address] PCP - General Internal Medicine 11/26/22 Spencer Tyler, DO [address] [place] [address] PCP - [facility] 08/02/23 Vinny Huff, DO [address] [place] [address] Otolaryngology 09/29/23 Vinny Huff, DO [address] [place] [address] Otolaryngology 11/02/23 documented as of this encounter
--- OUTSIDE RECORDS SUMMARY | 2025-01-15 13:07 | XMS_ITS | Encounter Summary ---
Author Organization [facility] Address [address] [facility] [place] [address] Care Team Providers Care Vocational Horticulture Instructor Name Role Phone Chaka Leonardo MD Primary Care Provider [phone] Yolanda Singh CONSTRUCTION GRIP Unavailable [phone] Spencer Tyler DO Unavailable Vinny Huff DO Unavailable [phone] Vinny Huff DO Unavailable [phone] Encounter Details Date Type Department Care Team (Late st Contact Info) Description 06/29/2023 Orders Only [facility] [place] [facility] [address] [facility] [address] [place] [phone] A, Unknown Practice [address] [place], [place] [id number] Social History Tobacco Use Types Packs/Day Years [...] 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 She is due. documented in this encounter Plan of Treatment Upcoming Encounters Date Type Department Care Team (Late st Contact Info) Description 01/16/2025 2:30 PM EDT Office Visit [facility] [place] [facility] [address] [place] [address] 02/15/2025 1:30 PM EDT Ancillary Procedure [facility] [place] [facility] [address] [place] [phone] documented as of this encounter Procedures Procedure Name Priority Date/Time Associated Diagnosis Comments SCANNED LABS Routine 06/29/2023 1:50 PM EST documented in this encounter Results * SCANNED LABS (06/29/2023 1:50 PM EST) us Unknown Practice A LAB CHG PERFORMABLES Final Re sult documented in this encounter Visit Diagnoses Not on filedocumented in this encounter Additional Health Concerns Assessment Noted Time PHQ-9 Depression Total Score: 18 023 3:00 PM EDT documented as of this encounter Care Teams Vocational Horticulture Instructor Relationship Specialty Start Date End Date Chaka Leonardo MD [address] [place] [address] PCP - General Internal Medicine 11/26/22 Yolanda Singh NP [address] [place] [address] PCP - [facility] 10/31/22 Spencer Tyler DO [address] [place] [address] [facility] 08/02/23 Vinny Huff DO [address] [place] [address] Otolaryngology 09/29/23 Vinny Huff DO [address] [place] [address] Otolaryngology 11/02/23 documented as of this encounter
--- OUTSIDE RECORDS SUMMARY | 2025-01-15 13:07 | XMS_ITS | Encounter Summary ---
Author Organization [facility] Address [address] [place] [address] Care Team Providers Care Unemployment Inspector Name Role Phone Chaka Leonardo MD Primary Care Provider [phone] Yolanda Singh POKER MANAGER Unavailable [phone] Spencer Tyler DO Unavailable [phone] Vinny Huff DO Unavailable [phone] Vinny Huff DO Unavailable Reason for Visit * Reason Comments Med Refill Encounter Details Date Type Department Care Team (Late st Contact Info) Description 11/07/2022 Refill [facility] [address] [facility] [address] [place] [address] Monica Burger, DO [address] [facility] 2 [place] [address] Social History Tobacco Use Types Packs/Day Years Used Date Smoking Tobacco: Never Assessed Comments Unknown Sex and Gender Information Value Date Recorded Sex Assigned at Not on file Legal Sex Female 7:01 PM EDT Gender Identity Not on file Sexual Orientation Not on file documented as of this encounter Plan of Treatment Upcoming Encounters Date Type Department Care Team (Late Contact Info) Description 01/16/2025 2:30 PM EDT Office Visit [facility] [place] [facility] [address] [facility] [address] [place] [address] 02/15/2025 1:30 PM EDT Ancillary Procedure [facility] [place] [facility] [address] [place] [address] documented as of this encounter Visit Diagnoses Not on filedocumented in this encounter Care Teams Unemployment Inspector Relationship Specialty Start Date End Date Chaka Leonardo MD [address] [place] [address] PCP - General Internal Medicine 11/26/22 Yolanda Singh, MISAEL [address] [place] [address] PCP - [facility] 10/31/22 Spencer Tyler, [address] [place] [address] PCP - [facility] 08/02/23 Vinny Huff, DO [address] [place] [address] Otolaryngology 09/29/23 Vinny Huff, DO [address] [place] [address] Otolaryngology 11/02/23 documented as of this encounter
--- OUTSIDE RECORDS SUMMARY | 2025-01-15 13:07 | XMS_ITS | Encounter Summary ---
Author Organization [facility] Address [address] [place] [address] Care Team Providers Care Animal Sticker Name Role Phone Chaka Leonardo MD Primary Care Provider [phone] Yolanda Singh BUS STEWARD Unavailable [phone] Spencer Tyler DO Unavailable [phone] Vinny Huff DO Unavailable [phone] Vinny Huff DO Unavailable [phone] Reason for Visit * Reason Comments Med Refill Encounter Details Date Type Department Care Team (Late st Contact Info) Description 12/06/2022 Refill [facility] [place] [facility] [address] [facility] [address] [place] [phone] Monica Burger, DO 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 No / Unsure 12/02/2022 2:13 PM EDT documented as of this encounter Plan of Treatment Upcoming Encounters Date Type Department Care Team (Late st Contact Info) Description 01/16/2025 2:30 PM EDT Office Visit [facility] [address] [place] [address] 02/15/2025 1:30 PM EDT Ancillary [facility] [address] [place] [address] documented as of this encounter Visit Diagnoses Not on filedocumented in this encounter Additional Health Concerns Assessment Noted Time PHQ-9 Depression Total Score: 18 023 3:00 PM EDT documented as of this encounter Care Teams Animal Sticker Relationship Specialty Start Date End Date Chaka Leonardo MD [address] [place] [address] PCP - General Internal Medicine 11/26/22 Yolanda Singh, BUS STEWARD [address] [place] [address] PCP - [facility] 10/31/22 Spencer Tyler, DO [address] [place] [address] PCP - [facility] 08/02/23 Vinny Huff, DO [address] [place] [address] Otolaryngology 09/29/23 Vinny Huff, DO [address] [place] [address] Otolaryngology 11/02/23 documented as of this encounter
--- OUTSIDE RECORDS SUMMARY | 2025-01-15 13:07 | XMS_ITS | Encounter Summary ---
Author Organization [facility] Address [address] [place] [address] Care Team Providers Care Measurement Superintendent Name Role Phone Chaka Leonardo MD Primary Care Provider [phone] Yolanda Singh RECRUITMENT ADVERTISING MANAGER Unavailable [phone] Spencer Tyler DO Unavailable [phone] Vinny Huff DO Unavailable [phone] Vinny Huff DO Unavailable [phone] Reason for Visit * Reason Onset Date Comments Med Refill 05/28/2023 Encounter Details Date Type Department Care Team (Late st Contact Info) Description 05/28/2023 Refill [facility] [place] [facility] [address] [facility] [address] [place] [address] Chaka Leonardo MD [address] [facility] [address] [place] [address] Chronic bilateral low back pain, unspecified whether sciatica present; Rash Social History Tobacco Use Types Packs/Day Years [...] 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 file Not on file documented as of this encounter Miscellaneous Notes * Telephone Encounter - Victor Manuel Phillips MA - 05/28/2023 1:13 PM EST Too early and they were sent with refills documented in this encounter Plan of Treatment Upcoming Encounters Date Type Department Care Team (Late st Contact Info) Description 01/16/2025 2:30 PM EDT Office Visit [facility] [place] [facility] [address] [place] [address] 02/15/2025 1:30 PM EDT Ancillary Procedure [facility] [place] [facility] [address] [place] [address] documented as of this encounter Visit Diagnoses Diagnosis Chronic bilateral low back pain, unspecified whether sciatica present Rash Rash and other nonspecific skin eruption documented in this encounter Additional Health Concerns Assessment Noted Time PHQ-9 Depression Total Score: 18 023 3:00 PM EDT documented as of this encounter Care Teams Measurement Superintendent Relationship Specialty Start Date End Date Chaka Leonardo MD [address] [place] [address] PCP - General Internal Medicine 11/26/22 Yolanda Singh, RECRUITMENT ADVERTISING MANAGER [address] [place] [address] PCP - [facility] 10/31/22 Spencer Tyler DO [address] [place] [address] PCP - [facility] 08/02/23 Vinny Huff DO [address] [place] [address] Otolaryngology 09/29/23 Vinny Huff DO [address] [place] [address] Otolaryngology 11/02/23 documented as of this encounter
[2025-01-15 14:45] LABS: Alanine Aminotransferase 25 U/L (14-59); Albumin Globulin Ratio 1.1; Albumin Level 3.6 g/dL (3.4-5.0); Alkaline Phosphatase 175 U/L (46-116); Anion Gap 12.5; Aspartate Amino Transferase 17 U/L (15-37); Blood Urea Nitrogen 27.0 mg/dL (7.0-18.0); Calcium 8.0 mg/dL (8.5-10.1); Carbon Dioxide 24.6 mmol/L (21.0-32.0); Chloride 113 mmol/L (98-107); Estimated GFR (African America >60 (>=60 mL/min/1.73m^2); Estimated GFR (Non-African Ame 53 (>=60 mL/min/1.73m^2); Globulin 3.4 g/dL; Glucose 89 mg/dL (74-106); Potassium 4.1 mmol/L (3.5-5.1); Sodium 146 mmol/L (136-145); Total Protein 7.0 g/dL (6.4-8.2)
--- OUTSIDE RECORDS SUMMARY | 2025-01-15 17:22 | XMS_ITS | CCD ---
Author Organization [facility] ion [facility] Care Team Providers Care Soft Shoe Dancer Name Role Phone DUNCAN, ELLEN M Unavailable [...] RITESH, Dr. TRI PHIPPS Attending Octavia Hassan [facility] Referring Unavailable RITESH, Dr. TRI PHIPPS Admitting Octavia AWAD, Dr. TRI PHIPPS Attending Joey Lopez Primary Care Unavailable UNKNOWN, PCP Referring Unavailable RITESH, Dr. TRI PHIPPS Attending Octavia Daniel, Joey French Primary Care Unavailable Jorden, Joey Frecnh Primary Care Unavailable RITESH, Dr. TRI PHIPPS Attending Octavia AWAD, Dr. TRI PHIPPS Attending Luis Angel Doty Referring Unavailable Joey Daniel Primary Care Unavailable MD Joey Daniel Primary Care Provider MD Joey Daniel Referring Provider [phone] DO Vinny Huff Attending Provider [phone] Joey Daniel Referring Unavailable Jorden, Joey Primary Care Unavailable Murcek, [...] Unavailable Joey Daniel MD Primary Care Provider [phone] Spencer Tyler DO Unavailable [phone] Vinny Huff DO W Unavailable Vinny Huff DO W Unavailable Spencer Tyler DO Unavailable JOEY DANIEL Referring Unavailable CHARLES DECKER Attending [...] saccharated; Translations: [IRON SUCROSE] Drug Allergy 4 [facility] Repository (2 sources) iron sucrose Drug Allergy 4 [facility] Repository (20 sources) Amitriptyline Drug Allergy 3 [...] mouth every six hours for pain HYDROcodone-acetaminophen ([place]) 10-325 MG tablet Indications: Chronic bilateral low back pain without sciatica Take 0.5-1 tablets by mouth every 6 (six) hours if needed for severe pain 90 tablet 01/05/2025 Active Start: 07-07-2024 End: 01-04-2025 take 0.5-1 tablets by mouth every six hours for pain HYDROcodone-acetaminophen ([place]) 10-325 MG tablet Indications: Chronic bilateral low back pain without sciatica Take 0.5-1 tablets by mouth every 6 (six) hours if needed for severe pain 90 tablet 12/04/2024 01/04/2025 Discontinued (Reorder) Start: 04-13-2024 End: 06-09-2024 take 0.5-1 tablets by mouth every six hours for pain HYDROcodone-acetaminophen ([place]) 10-325 MG tablet Indications: Chronic bilateral low back pain without sciatica Take 0.5-1 tablets by mouth every 6 (six) hours if needed for severe pain 90 tablet 06/09/2024 Active Start: 11-12-2023 End: 04-11-2024 take 0.5-1 tablets by mouth every six hours for pain HYDROcodone-acetaminophen ([place]) 10-325 MG tablet Indications: Chronic bilateral low [...] josé ly cholecalciferol (Vitamin D-3) 250 MCG (25192 UT) capsule Take 1 capsule by mouth Daily Active Vitamin D3 250 M CG (58771 UT) Oral Capsule Quantity: 0 Refills: 0 [...] Allowed docusate sodium 50 mg / sennosides, mcfp 8.6 mg oral tablet (1 source) Start: [...] Polyene Antifungal Start: 12-04-2024 nystatin (M ycostatin) 101855 UNIT/GM powder Indications: Rash Apply topically in the morning and before bedtime. 30 g 5 12/04/2024 Active Start: 11-12-2023 Nystatin Activ e 1 APPLIC TOPICAL Twice daily November 12, 2023 12:00am Start: 06-07-2023 End: 01-10-2024 nystatin (Mycostatin) 475402 UNIT/GM powder Indications: Rash Apply topically 2 [...] 0 Ordered: 15-May-2021 DO Active vitamin a 21658 unt oral capsule (20 sources) Vitamin A take 1 capsule by mouth once daily in the morning beta carotene (vitamin A) 3 MG (19795 UT) capsule Take 10,000 Units by mouth [...] every week ergocalciferol (Vitamin D2) 1.25 MG (38293 UT) capsule TAKE 1 CAPSULE BY MOUTH [...] 11-27-2022 Episodic Other aftercare (2 sources) Other shelter (current) drug therapy; Translations: [OTH SAFETY PERSON CURRENT DRUG THERAPY] Onset: 05-01-2021 Episodic Other [...] heart dis and oth dis of the [facility]] Onset: 05-15-2021 Episodic Skin and subcutaneous tissue [...] [Mass/Vol] 3.6 g/dL 3.4 - 5.0 g/dL [facility] ALBUMIN GLOBULIN RATIO 1.1 NO [facility] ALP [Catalytic activity/Vol] 175 U/L High 46 - 116 U/L [facility] ALT [Catalytic activity/Vol] 25 U/L 14 - 59 U/L [facility] Anion gap [Moles/Vol] 12.5 mmol/L NO [facility] AST [Catalytic activity/Vol] 17 U/L 15 - 37 U/L [facility] Bilirubin [Mass/Vol] 0.4 mg/dL 0.2 - 1 .0 mg/dL [facility] Calcium [Mass/Vol] 8 mg/dL Low 8.5 - 10. 1 mg/dL [facility] Chloride [Moles/Vol] 113 mmol/L High 98 - 10 7 mmol/L [facility] CO2 [Moles/Vol] 24.6 mmol/L 21.0 - 32.0 mmol/L [facility] Creatinine [Mass/Vol] 1.07 mg/dL High 0.55 - 1.02 mg/dL [facility] GFR/1.73 sq M.predicted CKD-EPI (S/P/Bld) [Vol rate/Area] >60 >=60 mL/min/1.7 3m 2 [facility] Globulin (S) [Mass/Vol] 3.4 g/dL [facility] Glucose [Mass/Vol] 89 mg/dL 74 - 106 mg/dL [facility] Interpretation and review of laboratory results Abnormal [facility] Potassium [Moles/Vol] 4.1 mmol/L 3.5 - 5.1 mmol/L [facility] Protein [Mass/Vol] 7 g/dL 6.4 - 8.2 g/dL [facility] Sodium [Moles/Vol] 146 mmol/L High 136 - 145 mmol/L [facility] EGFR-NON AF [place] 53 Low >=60 mL/min/1.7 3m 2 [facility] Urea nitrogen [Mass/Vol] 27 mg/dL High 7.0 - 18.0 mg/dL [facility] Urea nitrogen/Creatinine [Mass ratio] 25.2 mg/mg [facility] ALL CBC WITH AUTO DIFFon BASOPHILS ABSOLUTE AUTO 0 [facility] Basophils/100 WBC (Bld) 0.6 % 0.2 - 2.0 % [facility] Eosinophils/100 WBC (Bld) 1.8 % 0.9 - 7.0 % [facility] Erythrocyte distribution width (RBC) [Ratio] 15 % 11.0 - 15.0 % [facility] Hematocrit (Bld) [Volume fraction] 38.5 % 36.0 - 48.0 % [facility] Hemoglobin (Bld) [Mass/Vol] 12.1 g/dL 12.0 - 16.0 g/dL [facility] IMMATURE GRANULOCYTES ABS AUTO 0.02 [facility] Immature granulocytes/100 WBC (Bld) 0.3 % 0.0 - 0.5 % [facility] LYMPHOCYTES ABSOLUTE AUTO 2.4 [facility] Lymphocytes/100 WBC (Bld) 39.2 % 20.5 - 60.0 % [facility] MCH (RBC) [Entitic mass] 27 pg 26.7 - 34.0 pg [facility] MCHC (RBC) [Mass/Vol] 31.4 g/dL 29.9 - 35.2 g/dL [facility] MCV (RBC) [Entitic vol] 85.9 fL 81.0 - 99.0 fL [facility] MONOCYTES ABSOLUTE AUTO 0.4 [facility] Monocytes/100 WBC (Bld) 5.8 % 1.7 - 12.0 % [facility] NEUTROPHILS ABSOLUTE AUTO 3.3 [facility] Neutrophils/100 WBC (Bld) 52.3 % 43.0 - 75.0 % [facility] Platelet mean volume (Bld) [Entitic vol] 9.8 fL 9.5 - 13.5 fL [facility] EO # 0.1 [facility] PLT 218 [facility] RBC 4.48 [facility] WBC 6.2 [facility] US RENAL COMPLETEon 07-12-19 25 US RENAL [...] II, MD, PHD at 12-Jul-2024 08:39:11 AM [facility] Normal Not Available 25-hydroxyvitamin D3 [Mass/V ol]on 04-20-2024 25-hydroxyvitamin D [Mass/Vol] 29.1 ng/mL Low 30.0 - 100.0 ng/mL [facility] Comment on above: Vitamin D deficiency has been defined by the [place] of Medicine and an Endocrine Society practice guideline as a level of serum 25-OH vitamin D less than 20 ng/mL (1,2). The Endocrine Society went on to further define vitamin D insufficiency as a level between 21 and 29 ng/mL (2). 1. IOM ([place] of Medicine). 2010. Dietary reference intakes for [...] mmol/L High 96 - 10 6 mmol/L [facility] CO2 [Moles/Vol] 18 mmol/L Low 20 - 29 mmol/L [facility] Creatinine [Mass/Vol] 1.04 mg/dL High 0.57 - 1.00 mg/dL [facility] GFR/1.73 sq M.predicted among non-blacks MDRD (S/P/Bld) [Vol rate/Area] 64 mL/min/{1.73_m2} 59 - PINF mL/min/1.7 3 [facility] Globulin (S) [Mass/Vol] 2.1 g/dL 1.5 - 4.5 g/dL [facility] Glucose [Mass/Vol] 89 mg/dL 70 - 99 mg/dL [facility] Potassium [Moles/Vol] 4.3 mmol/L 3.5 - 5.2 mmol/L [facility] Protein [Mass/Vol] 6.2 g/dL 6.0 - 8.5 g/dL [facility] Sodium [Moles/Vol] 143 mmol/L 134 - 144 mmol/L [facility] Urea nitrogen [Mass/Vol] 23 mg/dL 6 - 24 mg/dL [facility] Urea nitrogen/Creatinine [Mass ratio] 22 mg/mg 9 - 23 [facility] No Panel Informationon 04-20 Interpretation and review of laboratory results Abnormal [facility] Performed at: [address] [place] [id number] Caster Operator: Mark Gomez PhD, Phone: [phone] Specimen Comment: A courtesy copy of this report has been sent to [phone] [facility] Parathyrin.intact and Calciu m panelon 04-20-2024 Parathyrin.intact [Mass/Vol] 88 pg/mL High 15 - 65 pg/mL [facility] Parathyrin.intact [Mass/Vol] Comment [facility] Comment on above: Interpretation Inta ct PTH Calcium (pg/mL) (mg/dL) Normal 15 - 65 8.6 - 10.2 Primary Hyperparathyroidism >65 >10.2 Secondary Hyperparathyroidism >65 <10.2 Non-Parathyroid Hypercalcemia <65 >10.2 Hypoparathyroidism <15 < 8.6 Non-Parathyroid Hypocalcemia 15 - 65 < 8.6 Specimen Status Reporton Clindamycin Disk diffusion (KB) [Susc] Comment [facility] Comment on above: Juan Jose Simon CMP14 D efault Juan Jose Simon CMP14 Default A hand-written panel/profile was received from your office. In accordance with the [facility] Ambiguous Test Code Policy dated October 2002, we have completed your order by using the closest currently or formerly recognized AMA panel. We have assigned Comprehensive Metabolic Panel (14), Test Code #167983 to this request. If this is not the testing you wished to receive on this specimen, please contact the [facility] Client Inquiry/Technical Services Department to clarify the test order. We appreciate your business. Vitamin Loy 04-20-2024 Phytonadione [Mass/Vol] <0.10 Low 0.10 - 2.20 ng/mL [facility] Test(s) 220118-Rvesp in K1 was developed and its performance characteristics determined by [facility]. It has not been cleared or approved by the Food and Drug Administration. Performed at: 02 - [address] [id number] Caster Operator: Marion Casillas MD, Phone: [phone] Specimen Comment: A courtesy copy of this report has been sent to [phone] [facility] 25-hydroxyvitamin D3 [Mass/V ol]on 01-12-2024 25-hydroxyvitamin D [Mass/Vol] 31.9 ng/mL 30.0 - 100.0 ng/mL [facility] Comment on above: Vitamin D deficiency has been defined by the [place] of Medicine and an Endocrine Society practice guideline as a level of serum 25-OH vitamin D less than 20 ng/mL (1,2). The Endocrine Society went on to further define vitamin D insufficiency as a level between 21 and 29 ng/mL (2). 1. IOM ([place] of [place]). 2010. Dietary reference intakes for calcium and D. [place]: The National Academies Press. 2. Amanda MF, Eliecer [place], Kev GREER, et al. Evaluation, treatment, and prevention of vitamin D deficiency: an Endocrine Society clinical practice guideline. JCEM. 2010; 96(7):1911-30. ANAon 01-12-2024 Nuclear Ab Ql (S) Negative Negative [facility] Calciumon 01-12-2024 Calcium [Mass/Vol] 8.5 mg/dL Low 8.7 - 10. 2 mg/dL [facility] Immunofixation electrophores anusha 01-12-2024 IgA [Mass/Vol] 261 mg/dL 87 - 352 mg/dL [facility] IgG [Mass/Vol] 1122 mg/dL 586 - 1602 mg/dL [facility] IgM [Mass/Vol] 88 mg/dL 26 - 217 mg/dL [facility] Protein Fractions [Interp] Comment [facility] Comment on above: No monoclonality det ected. No Panel Informationon 01-11 Performed at: 01 - L [address] [id number] Caster Operator: Mark Gomez PhD, Phone: [phone] [facility] Interpretation and review of laboratory results Abnormal [facility] Performed at: 01 - [address] [id number] Caster Operator: Mark Gomez PhD, Phone: [phone] [facility] PTH, intacton 01-12-2024 Parathyrin.intact [Mass/Vol] 117 pg/mL High 15 - 65 pg/mL [facility] Thyroid stimulating immunogl obulins actual/normal (S) [Relative mass conc]on 01-12-2024 Immunoglobulin light chains.kappa.free (S) [Mass/Vol] 46.6 mg/L High 3.3 - 19.4 mg/L [facility] Immunoglobulin light chains.kappa.free/Immu noglobulin light chains.lambda.free (S) [Mass ratio] 1.47 0.26 - 1.65 [facility] Immunoglobulin light chains.lambda.free [Mass/Vol] 31.6 mg/L High 5.7 - 26.3 mg/L [facility] Interpretation and review of laboratory results Abnormal [facility] Calcium [Mass/volume] in Ser um or PlasmaOrdered By: Vinny Huff on 12-13-2023 Calcium [Mass/Vol] 8.5 mg/dL Low 8.6-10.3 [facility] Comment on above: Result Comment: PERF ORMED BY: [place] [address] PATHOLOGIST [employer]STRUCTION MILLWRIGHT AYDE MANJARREZ M.D. Performed By: #### B MP, PTH, TSH3, [id number] #### [address] Parathyrin.intact [Mass/volu me] in Serum or PlasmaOrdered By: Vinny Huff on 12-13-2023 Parathyrin.intact [Mass/Vol] 153.3 pg/mL High [facility] Parathyroid Hormone Intacton 12-13-2023 Parathyroid Hormone Intact 153.3 pg/mL High [facility] Comment on above: Result Comment: PERF ORMED BY: [place] [id number] PATHOLOGIST [employer]STRU[employer] MILLWRIGHT AYDE MANJARREZ M.D. Performed By: #### B MP, PTH, TSH3, [id number] #### [address] [address] [facility] Calcium [Mass/volume] in Ser um or PlasmaOrdered By: Vinny Huff on 12-06-2023 Calcium [Mass/Vol] 7.7 mg/dL Low 8.6-10.3 [facility] Comment on above: Order Comment: Comme nt Run stat and call to Dr. Huff Result Comment: PERF ORMED BY: [place] [address] PATHOLOGIST [employer] MILLWRIGHT AYDE MANJARREZ M.D. Performed By: #### B MP, PTH, TSH3, [id number] #### [place] [id number] [facility] Intact PTH IO Post Induction on 12-06-2023 Intact PTH IO Post Induction 281.8 High 12.0-88.0 [facility] Comment on above: Result Comment: PERF ORMED BY: [place] [id number] PATHOLOGIST [employer] MILLWRIGHT AYDE MANJARREZ M.D. Performed By: #### S TATPTH POSTIND, PTHIO 15, PTHIO 10 MIN #### [place] [id number] [facility] Intact PTH Intraoperative 10 Mon 12-06-2023 Intact PTH Intraoperative 10 M 73.2 pg/mL Normal [facility] Comment on above: Result Comment: PERF ORMED BY: [place] [id number] PATHOLOGIST [employer] M[employer]WR[employer] AYDE MANJARREZ M.D. Performed By: #### B MP, PTH, TSH3, [id number] #### [address] [address] [place] Intact PTH Intraoperative 10 M 270.0 pg/mL High 12-88 [facility] Comment on above: Result Comment: Resu lts called at 0858 on 12/06/23 PERFORMED BY: [place] [id number] PATHOLOGIST [employer] M[employer]WRIGHT AYDE MANJARREZ M.D. Performed By: #### S TATPTH POSTIND, PTHIO 15, PTHIO 10 MIN #### [place] [id number] [facility] Intact PTH Intraoperative 15 Mon 12-06-2023 Intact PTH Intraoperative 15 M 68.5 pg/mL Normal [facility] Comment on above: Result Comment: PERF ORMED BY: [place] [id number] PATHOLOGIST [employer] M[employer]WR[employer] AYDE MANJARREZ M.D. Performed By: #### B MP, PTH, TSH3, [id number] #### [place] [id number] [facility] Intact PTH Intraoperative 15 M 246.8 pg/mL Normal [facility] Comment on above: Result Comment: Resu lts called at 0904 on 12/06/23 PERFORMED BY: [address] [address] PATHOLOGIST [employer] M[employer]WR[employer] AYDE MANJARREZ M.D. Performed By: #### B MP, PTH, TSH3, [id number] #### [place] [id number] [facility] Jose Antonio 12-06-2023 L Specimen: [id number] Received: 12/06/23 Status: SOURadha Req Num: [id number] Spec Type: Surgical Subm Dr: Vinny Huff DO Tissues: A Parathyroid Gland (LEFT INFERIOR PARATHYROID AD) B Parathyroid Gland (RT SUPERIOR PARATHYROID RAYO) C Parathyroid Gland (RT INFERIOR PARATHYROID) Procedures: HE/5, Gross/Micro L4/3, FS HE/4, DIFF QWIK/2 Age/ Patient Sex Location Account Attending Physician Deana Croft 53/F [place] [id number] Vinny Huff DO SPEC NUM: [id number] RECD: 12/06/23 STATUS: BEBO QUEEN NUM: [id number] SULMA: 12/06/[address]: Vinny Huff DO ENTERED: 12/06/[address] [facility] DR: SPEC TYPE: Surgical DEPT: S [...] entirely for frozen in A1 FS. Specimen: [id number] Received: 12/06/23 Status: BEBO Perduetanja Num: [id number] Spec Type: Surgical Subm Dr: Vinny Huff DO Tissues: A Parathyroid Gland (LEFT INFERIOR PARATHYROID AD) B Parathyroid Gland (RT SUPERIOR PARATHYROID RAYO) C Parathyroid Gland (RT INFERIOR PARATHYROID) Procedures: HE/5, Gross/Micro L4/3, FS HE/4, DIFF QWIK/2 Patient: Deana Croft [id number] (Continued) Specimen: [id number] Received: 12/06/23 (Continued) Gross Description (Continued) Signed (signature on file) Mike Head MD 12/07/23 1658 Specimen: [id number] Received: 12/06/23 Status: BEBO Queen Num: [id number] Spec Type: Surgical Subm Dr: Vinny Huff DO Tissues: A Parathyroid Gland (LEFT INFERIOR PARATHYROID AD) B Parathyroid Gland (RT SUPERIOR PARATHYROID RAYO) C Parathyroid Gland (RT INFERIOR PARATHYROID) Procedures: HE/5, Gross/Micro L4/3, FS HE/4, DIFF QWIK/2 Patient: Deana Croft [id number] (Continued) Specimen: [id number] Received: 12/06/23 (Continued) Gross Description (Continued) B. [...] Description Microscopic examinations are performed CPT Codes 24141a5 10446j2 [id number] Specimen: [id number] Received: 12/06/23 Status: BEBO Queen Num: [id number] Spec Type: Surgical Subm Dr: Vinny Huff, Tissues: A Parathyroid Gland (LEFT INFERIOR PARATHYROID AD) B Parathyroid Gland (RT SUPERIOR PARATHYROID RAYO) C Parathyroid Gland (RT INFERIOR PARATHYROID) Procedures: HE/5, Gross/M (more content not included)... Normal [facility] Parathyrin.intact [Mass/volu me] in Serum or PlasmaOrdered By: Vinny Huff on 12-06-2023 Parathyrin.intact [Mass/Vol] 80.3 pg/mL [facility] Parathyrin.intact [Mass/volu me] in Serum or Plasma --10 minutes post excisionOrdered By: Vinny Huff on 12-06-2023 Parathyrin.intact 10 Min post excision [Mass/Vol] 73.2 pg/mL [facility] Parathyrin.intact [Mass/volu me] in Serum or Plasma --post XXX challengeOrdered By: Vinny Huff on 12-06-2023 Parathyrin.intact post Unsp challenge [Mass/Vol] 68.5 pg/mL [facility] Parathyrin.intact [Mass/volu me] in Serum or Plasma --post excisionOrdered By: Vinny Huff on 12-06-2023 Parathyrin.intact post excision [Mass/Vol] 281.8 pg/mL High 12.0-88.0 [facility] Parathyroid Hormone Intacton 12-06-2023 Parathyroid Hormone Intact 80.3 pg/mL Normal [facility] Comment on above: Order Comment: Mey hale Run stat and call to Dr. Huff Result Comment: PERF ORMED BY: [facility] [address] PATHOLOGIST [employer] M[employer] AYDE MANJARREZ M.D. Performed By: #### B MP, PTH, TSH3, [id number] #### [address] Automated basophil %Ordered By: Vinny Huff on 11-12-2023 Basophils/100 WBC (Bld) 2.1 % Normal . [facility] Comment on above: Performed By: #### B MP, PTH, TSH3, [id number] #### [address] Automated basophil countOrde red By: Vinny Huff on 11-12-2023 Basophils (Bld) [#/Vol] 0.1 10*3/uL Normal 0.0-0.2 [facility] Comment on above: Result Comment: PERF ORMED BY: [place] [address] PATHOLOGIST [employer] M[employer]WR[employer] AYDE MANJARREZ M.D. Performed By: #### B MP, PTH, TSH3, [id number] #### [address] Automated blood monocyte cou ntOrdered By: Vinny Huff on 11-12-2023 Monocytes (Bld) [#/Vol] 0.3 10*3/uL Normal 0.0-0.8 [facility] Comment on above: Performed By: #### B MP, PTH, TSH3, [id number] #### [address] Automated eosinophil %Ordere d By: Vinny Huff on 11-12-2023 Eosinophils/100 WBC (Bld) 2.1 % Normal . [facility] Comment on above: Performed By: #### B MP, PTH, TSH3, [id number] #### [address] Automated eosinophil countOr dered By: Vinny Huff on 11-12-2023 Eosinophils (Bld) [#/Vol] 0.1 10*3/uL Normal 0.0-0.45 [facility] Comment on above: Performed By: #### B MP, PTH, TSH3, [id number] #### [address] Automated monocyte %Ordered By: Vinny Huff on 11-12-2023 Monocytes/100 WBC (Bld) 5.1 % Normal . [facility] Comment on above: Performed By: #### B MP, PTH, TSH3, [id number] #### [address] Automated neutrophil %Ordere d By: Vinny Huff on 11-12-2023 Neutrophils/100 WBC (Bld) 55.0 % Normal . [facility] Comment on above: Performed By: #### B MP, PTH, TSH3, [id number] #### [address] Basic Metabolic Panelon 10-31 GFR/1.73 sq M.predicted MDRD (S/P/Bld) [Vol rate/Area] mL/min/{1.73_m2} Normal [facility] Comment on above: Performed By: #### B MP, PTH, TSH3, [id number] #### [address] Calcium [Mass/volume] in Ser um or PlasmaOrdered By: Vinny Huff on 11-12-2023 Calcium [Mass/Vol] 8.8 mg/dL Normal 8.6-10.3 [facility] Comment on above: Performed By: #### B MP, PTH, TSH3, [id number] #### [address] Carbon dioxide, total [Moles /volume] in Serum or PlasmaOrdered By: Vinny Huff on 11-12-2023 CO2 [Moles/Vol] 21.9 mmol/L Normal 21.0-31.0 [facility] Comment on above: Performed By: #### B MP, PTH, TSH3, [id number] #### [place] [address] [place] Chloride [Moles/volume] in S dorian or PlasmaOrdered By: Vinny Huff on 11-12-2023 Chloride [Moles/Vol] 114 mmol/L High 98-107 [facility] Comment on above: Performed By: #### B MP, PTH, TSH3, [id number] #### [facility] [address] Complete Blood Count Auto Di ffon 11-12-2023 Mean Corpuscular HGB Conc 31.6 g/dL Low 32.0-35.0 [facility] Comment on above: Performed By: #### B MP, PTH, TSH3, [id number] #### [facility] [address] NRBC% 0.1 /100{WBC} Normal 0-0.5 [facility] Comment on above: Performed By: #### B MP, PTH, TSH3, [id number] #### [address] Creatinine [Mass/volume] in Serum or PlasmaOrdered By: Vinny Huff on 11-12-2023 Creatinine [Mass/Vol] 0.96 mg/dL Normal 0.60-1.20 [facility] Comment on above: Performed By: #### B MP, PTH, TSH3, [id number] #### [facility] [address] ECG 12 lead ECGon 11-12-2023 ECG 12 lead ECG [facility] Main [place] [address] [place] [address] Electrocardiograph Report Signed Patient: Deana Croft MR#: [id number] : 1970 Acct:[id number] Age/Sex: 53 / F ADM Date: 11/12/23 Loc: Room: Type: [facility] Attending Dr: Vinny Huff DO Ordering Provider: [...] change was found Confirmed by MINO LANDIS [facility], KEMAL ([id number]) on 11/12/2023 4:34:53 PM Referred By: Electronically Signed By: KEMAL HERZOG MD [facility] Transcribed By: MUS Signed By Kemal Herzog MD, [facility] 11/12/23 1634 Normal [facility] Erythrocyte distribution wid th [Ratio] by Automated countOrdered By: Vinny Huff on 11-12-2023 Erythrocyte distribution width (RBC) [Ratio] 14.6 % Normal 11.9-15.3 [facility] Comment on above: Performed By: #### B MP, PTH, TSH3, [id number] #### [facility] [address] Erythrocytes [#/volume] in B lood by Automated countOrdered By: Vinny Huff on 11-12-2023 RBC (Bld) [#/Vol] 4.48 10*6/uL Normal 3.60-5.00 [facility] Comment on above: Performed By: #### B MP, PTH, TSH3, [id number] #### [facility] [address] Glucose [Mass/volume] in Ser um or PlasmaOrdered By: Vinny Huff on 11-12-2023 Glucose [Mass/Vol] 76 mg/dL Normal 70-100 [facility] Comment on above: ADA recommended refe rence rangeRandom Glucose Reference Range is dependent on time and content of last meal. Glucose of more than 200 mg/dL in a nonstressed, ambulatory subject supports the diagnosis of Diabetes Mellitus. Result Comment: [place] om Glucose Reference Range is dependent on time and content of last meal. Glucose of more than 200 mg/dL in a nonstressed, ambulatory subject supports the diagnosis of Diabetes Mellitus. ADA recommended reference range Performed By: #### B MP, PTH, TSH3, [id number] #### [address] Hematocrit [Volume Fraction] of Blood by Automated countOrdered By: Vinny Huff on 11-12-2023 Hematocrit (Bld) [Volume fraction] 38.6 % Normal 34.0-46.4 [facility] [facility] Comment on above: Performed By: #### B MP, PTH, TSH3, [id number] #### [address] Hemoglobin [Mass/volume] in BloodOrdered By: Vinny Huff on 11-12-2023 Hemoglobin (Bld) [Mass/Vol] 12.2 g/dL Normal 11.8-15.4 [facility] Comment on above: Performed By: #### B MP, PTH, TSH3, [id number] #### [address] Leukocytes [#/volume] correc jc for nucleated erythrocytes in Blood by Automated counOrdered By: Vinny Huff on 11-12-2023 WBC corrected for nucl RBC Auto (Bld) [#/Vol] 5.4 10*3/uL 3.8-11.6 [facility] Leukocytes [#/volume] in Blo od by Automated countOrdered By: Vinny Huff on 11-12-2023 WBC (Bld) [#/Vol] 5.4 10*3/uL Normal 3.8-11.6 [facility] Comment on above: Performed By: #### B MP, PTH, TSH3, [id number] #### [address] Lymphocytes [#/volume] in Bl ood by Automated countOrdered By: Vinny Huff on 11-12-2023 Lymphocytes (Bld) [#/Vol] 1.9 10*3/uL Normal 1.00-4.8 [facility] Comment on above: Performed By: #### B MP, PTH, TSH3, [id number] #### [address] Lymphocytes/100 leukocytes i n Blood by Automated countOrdered By: Vinny Huff on 11-12-2023 Lymphocytes/100 WBC (Bld) 35.7 % Normal . [facility] Comment on above: Performed By: #### B MP, PTH, TSH3, [id number] #### [facility] [address] [place] [address] MCH [Entitic mass] by Automa jc countOrdered By: Vinny Huff on 11-12-2023 MCH (RBC) [Entitic mass] 27.2 pg Normal 24.7-34.3 [facility] Comment on above: Performed By: #### B MP, PTH, TSH3, [id number] #### [facility] [address] [place] [address] MCHC Auto (RBC) [Mass/Vol]Or dered By: Vinny Huff on 11-12-2023 MCHC (RBC) [Mass/Vol] 31.6 g/dL Low 32.0-35.0 [facility] MCV [Entitic volume] by Auto mated countOrdered By: Vinny Huff on 11-12-2023 MCV (RBC) [Entitic vol] 86.2 fL Normal 80-100 [facility] Comment on above: Performed By: #### B MP, PTH, TSH3, [id number] #### [address] Neutrophils [#/volume] in Bl ood by Automated countOrdered By: Vinny Huff on 11-12-2023 Neutrophils (Bld) [#/Vol] 3.0 10*3/uL Normal 1.8-7.7 [facility] Comment on above: Performed By: #### B MP, PTH, TSH3, [id number] #### [facility] [address] [place] [address] No Panel InformationOrdered By: Vinny Huff on 11-12-2023 Estimated GFR (CKD-EPI) > 60.0 mL/Min [facility] Creatinine Clearance (Chem N/A [facility] Nucleated erythrocytes [Pres ence] in Blood by Automated countOrdered By: Vinny Huff on 11-12-2023 Nucleated RBC Auto Ql (Bld) 0.1 /100{WBC} 0-0.5 [facility] Parathyrin.intact [Mass/volu me] in Serum or PlasmaOrdered By: Vinny Huff on 11-12-2023 Parathyrin.intact [Mass/Vol] 299.4 pg/mL High [facility] Parathyroid Hormone Intacton 11-12-2023 Parathyroid Hormone Intact 299.4 pg/mL High [facility] Comment on above: Result Comment: PERF ORMED BY: [place] [address] PATHOLOGIST [employer] AYDE MANJARREZ M.D. Performed By: #### B MP, PTH, TSH3, [id number] #### [address] Platelet mean volume [Entiti c volume] in Blood by Automated countOrdered By: Vinny Huff on 11-12-2023 Platelet mean volume (Bld) [Entitic vol] 8.2 fL Normal 6.3-10.7 [facility] Comment on above: Performed By: #### B MP, PTH, TSH3, [id number] #### [address] Platelets [#/volume] in Bloo d by Automated countOrdered By: Vinny Huff on 11-12-2023 Platelets (Bld) [#/Vol] 226 10*3/uL Normal 150-450 [facility] Comment on above: Performed By: #### B MP, PTH, TSH3, [id number] #### [facility] [address] [place] [address] [place] Potassium [Moles/volume] in Serum or PlasmaOrdered By: Vinny Huff on 11-12-2023 Potassium [Moles/Vol] 4.2 mmol/L Normal 3.5-5.1 [facility] Comment on above: Performed By: #### B MP, PTH, TSH3, [id number] #### [address] [place] [address] [place] Serum or plasma anion gap de terminationOrdered By: Vinny Huff on 11-12-2023 Anion gap [Moles/Vol] 10.3 mmol/L Normal 6.0-15.0 [facility] Comment on above: Performed By: #### B MP, PTH, TSH3, [id number] #### [address] Sodium [Moles/volume] in Ser um or PlasmaOrdered By: Vinny Huff on 11-12-2023 Sodium [Moles/Vol] 142 mmol/L Normal 136-145 [facility] Comment on above: Performed By: #### B MP, PTH, TSH3, [id number] #### [address] Thyrotropin [Units/volume] i n Serum or PlasmaOrdered By: Vinny Huff on 11-12-2023 TSH Qn 3.09 m[IU]/L Normal 0.45-5.33 [facility] Comment on above: Performed By: #### B MP, PTH, TSH3, [id number] #### [address] Urea nitrogen [Mass/volume] in Serum or PlasmaOrdered By: Vinny Huff on 11-12-2023 Urea nitrogen [Mass/Vol] 22 mg/dL Normal 7-25 [facility] Comment on above: Performed By: #### B MP, PTH, TSH3, [id number] #### [address] Vitamin D 25 Hydroxy Totalon 11-12-2023 Vitamin D 25 Hydroxy Total 14.4 ng/mL Low 30-100 [facility] Comment on above: Result Comment: IRMA MIN D STATUS 25(OH)VITAMIN D RANGE (ng/mL) Deficient <20 Insufficient 20 to <30 Sufficient 30 to 100 Reference: Amanda MF,Eliecer NC, Kev GREER, et al. Evaluation,treatment, and prevention of vitamin D deficiency; an Endocrine Society clinical practice guideline. JCEM. 2010; 96(7):1911-. PERFORMED BY: [place] [address] PATHOLOGIST [employer] AYDE MANJARREZ M.D. Performed By: #### B MP, PTH, TSH3, [id number] #### [address] Vitamin D+Metabolites [Mass/ volume] in Serum or PlasmaOrdered By: Vinny Huff on 11-12-2023 Vitamin D+Metabolites [Mass/Vol] 14.4 ng/mL Low 30-100 [facility] Comment on above: VITAMIN D STATUS 25( OH)VITAMIN D RANGE (ng/mL) Deficient <20 Insufficient 20 to <30Sufficient 30 to 100Reference: Amanda MF,Eliecer GOYAL, Kev GREER, et al. Evaluation,treatment, and prevention of vitamin D deficiency; an Endocrine Society clinical practice guideline. JCEM. 2010; 96(7):191-. NM*parathyroid SPECT*on 10-02 NM*parathyroid SPECT* [facility] [place] [address] [place] [address] Nuclear Medicine Report Signed Patient: Deana Croft MR#: [id number] : 1970 Acct:[id number] Age/Sex: 53 / F ADM Date: 10/27/23 Loc: [place] Room: Type: [facility] Attending Dr: Vinny Huff DO Copies to: [...] Jay Paz M.D.10/27/2023 12:55 PM Dictation Location: [place] [address] Transcribed By: ANGELIA 10/27/23 1255 Dictated By: Jay Paz II, MD 10/27/23 1251 Signed By: 10/27/23 1255 Normal [facility] Alanine aminotransferase [En zymatic activity/volume] in Serum or PlasmaOrdered By: Joey Daniel on 09-28-2023 ALT [Catalytic activity/Vol] 14 U/L Normal 7-52 [facility] Comment on above: Performed By: #### B MP, PTH, TSH3, [id number] #### [facility] [address] [place] [address] [place] Albumin [Mass/volume] in Ser um or Plasma by Bromocresol green (BCG) dye binding methoOrdered By: Joey Daniel on 09-28-2023 Albumin BCG dye [Mass/Vol] 4.2 g/dL 3.5-5.7 [facility] Alkaline phosphatase [Enzyma tic activity/volume] in Serum or PlasmaOrdered By: Joey Daniel on 09-28-2023 ALP [Catalytic activity/Vol] 177 U/L High 34-104 [facility] Comment on above: Result Comment: PERF ORMED BY: [facility] [address] [place] [id number] PATHOLOGIST [employer] AYDE MANJARREZ M.D. Performed By: #### B MP, PTH, TSH3, [id number] #### [facility] [address] [place] [address] [place] Aspartate aminotransferase [ Enzymatic activity/volume] in Serum or PlasmaOrdered By: Joey Daniel on 09-28-2023 AST [Catalytic activity/Vol] 14 U/L Normal 13-39 [facility] Comment on above: Performed By: #### B MP, PTH, TSH3, [id number] #### [address] Bilirubin.total [Mass/volume ] in Serum or PlasmaOrdered By: Joey Daniel on 09-28-2023 Bilirubin [Mass/Vol] 0.4 mg/dL Normal 0.3-1.0 [facility] Comment on above: Performed By: #### B MP, PTH, TSH3, [id number] #### [address] Blood Urea Nitrogenon 2023 Urea nitrogen [Mass/Vol] 37 mg/dL High 7-25 [facility] Comment on above: Performed By: #### C REAT, BUN #### [facility] [address] [place] [address] #### VITK1 #### [facility] , Calciumon 09-28-2023 Calcium [Mass/Vol] 8.9 mg/dL Normal 8.6-10.3 [facility] Comment on above: Performed By: #### B MP, PTH, TSH3, [id number] #### [address] Calcium [Mass/volume] in Ser um or PlasmaOrdered By: Joey Daniel on 09-28-2023 Calcium [Mass/Vol] 8.9 mg/dL Normal 8.6-10.3 [facility] Comment on above: Performed By: #### B MP, PTH, TSH3, [id number] #### [address] Carbon dioxide, total [Moles /volume] in Serum or PlasmaOrdered By: Joey Danile on 09-28-2023 CO2 [Moles/Vol] 21.1 mmol/L Normal 21.0-31.0 [facility] Comment on above: Performed By: #### B MP, PTH, TSH3, [id number] #### [address] Chloride [Moles/volume] in S dorian or PlasmaOrdered By: Joey Daniel on 09-28-2023 Chloride [Moles/Vol] 111 mmol/L High 98-107 [facility] Comment on above: Performed By: #### B MP, PTH, TSH3, [id number] #### [address] Comprehensive Metabolic Pane jose antonio 09-28-2023 Albumin [Mass/Vol] 4.2 g/dL Normal 3.5-5.7 [facility] Comment on above: Performed By: #### B MP, PTH, TSH3, [id number] #### [address] GFR/1.73 sq M.predicted MDRD (S/P/Bld) [Vol rate/Area] 54.673 mL/min/{1.73_m2} Normal [facility] Comment on above: Performed By: #### B MP, PTH, TSH3, [id number] #### [address] Creatinineon 09-28-2023 Creatinine [Mass/Vol] 1.14 mg/dL Normal 0.60-1.20 [facility] Comment on above: Performed By: #### C REAT, BUN #### [place] [address] [place] #### VITK1 #### [facility] , GFR/1.73 sq M.predicted MDRD (S/P/Bld) [Vol rate/Area] 57.563 mL/min/{1.73_m2} Normal [facility] Comment on above: Result Comment: PERF ORMED BY: [place] [address] PATHOLOGIST [employer] AYDE MANJARREZ M.D. Performed By: #### C REAT, BUN #### [place] [address] [place] #### VITK1 #### [facility] , Creatinine [Mass/volume] in Serum or PlasmaOrdered By: Joey Daniel on 09-28-2023 Creatinine [Mass/Vol] 1.19 mg/dL Normal 0.60-1.20 [facility] Comment on above: Performed By: #### B MP, PTH, TSH3, [id number] #### [facility] [address] Glucose [Mass/volume] in Ser um or PlasmaOrdered By: Joey Daniel on 09-28-2023 Glucose [Mass/Vol] 82 mg/dL Normal 70-100 [facility] Comment on above: ADA recommended refe rence rangeRandom Glucose Reference Range is dependent on time and content of last meal. Glucose of more than 200 mg/dL in a nonstressed, ambulatory subject supports the diagnosis of Diabetes Mellitus. Result Comment: [place] om Glucose Reference Range is dependent on time and content of last meal. Glucose of more than 200 mg/dL in a nonstressed, ambulatory subject supports the diagnosis of Diabetes Mellitus. ADA recommended reference range Performed By: #### B MP, PTH, TSH3, [id number] #### [facility] [address] No Panel InformationOrdered By: Joey Daniel on 09-28-2023 Estimated GFR (CKD-EPI) 54.673 mL/Min [facility] Creatinine Clearance (Chem N/A [facility] No Panel InformationOrdered By: Vinny Huff on 09-28-2023 Vitamin K1 Level <0.10 ng/mL Low 0.10-2.20 [facility] Comment on above: This test was develo ped and its performance characteristicsdetermined by [facility]. It has not been cleared orapproved by the Food and Drug Administration.Performed at: [address] [id number] Director: Marion Casillas MD, Phone: [phone] Parathyrin.intact [Mass/volu me] in Serum or PlasmaOrdered By: Vinny Huff on 09-28-2023 Parathyrin.intact [Mass/Vol] 373.6 pg/mL High [facility] Parathyroid Hormone Intacton 09-28-2023 Parathyroid Hormone Intact 373.6 pg/mL High [facility] Comment on above: Result Comment: PERF ORMED BY: [place] [address] PATHOLOGIST [employer] AYDE MANJARREZ M.D. Performed By: #### B MP, PTH, TSH3, [id number] #### [address] Potassium [Moles/volume] in Serum or PlasmaOrdered By: Joey Daniel on 09-28-2023 Potassium [Moles/Vol] 3.9 mmol/L Normal 3.5-5.1 [facility] Comment on above: Performed By: #### B MP, PTH, TSH3, [id number] #### [address] Protein [Mass/volume] in Ser um or PlasmaOrdered By: Joey Daniel on 09-28-2023 Protein [Mass/Vol] 6.5 g/dL Normal 6.4-8.9 [facility] Comment on above: Performed By: #### B MP, PTH, TSH3, [id number] #### [address] Serum globulin measurement b y calculation (mass/volume)Ordered By: Joey Daniel on 09-28-2023 Globulin (S) [Mass/Vol] 2.3 g/dL [facility] Comment on above: Performed By: #### B MP, PTH, TSH3, [id number] #### [address] Serum or plasma albumin/glob ulin mass ratioOrdered By: Joey Daniel on 09-28-2023 Albumin/Globulin [Mass ratio] 1.8 {ratio} [facility] Comment on above: Performed By: #### B MP, PTH, TSH3, [id number] #### [address] Serum or plasma anion gap de terminationOrdered By: Joey Daniel on 09-28-2023 Anion gap [Moles/Vol] 9.8 mmol/L Normal 6.0-15.0 [facility] Comment on above: Performed By: #### B MP, PTH, TSH3, [id number] #### [address] Sodium [Moles/volume] in Ser um or PlasmaOrdered By: Joey Daniel on 09-28-2023 Sodium [Moles/Vol] 138 mmol/L Normal 136-145 [facility] Comment on above: Performed By: #### B MP, PTH, TSH3, [id number] #### [address] Thyrotropin [Units/volume] i n Serum or PlasmaOrdered By: Vinny Huff on 09-28-2023 TSH Qn 2.23 m[IU]/L Normal 0.45-5.33 [facility] Comment on above: Performed By: #### B MP, PTH, TSH3, [id number] #### [address] Urea nitrogen [Mass/volume] in Serum or PlasmaOrdered By: Joey Daniel on 09-28-2023 Urea nitrogen [Mass/Vol] 37 mg/dL High 7-25 [facility] Comment on above: Performed By: #### B MP, PTH, TSH3, [id number] #### [address] Vitamin D 25 Hydroxy Totalon 09-28-2023 Vitamin D 25 Hydroxy Total 35.5 ng/mL Normal 30-100 [facility] Comment on above: Result Comment: IRMA MIN D STATUS 25(OH)VITAMIN D RANGE (ng/mL) Deficient <20 Insufficient 20 to <30 Sufficient 30 to 100 Reference: Amanda RUBIO,Eliecer GOYAL, Kev GREER, et al. Evaluation,treatment, and prevention of vitamin D deficiency; an Endocrine Society clinical practice guideline. JCEM. 2010; 96(7):1911-30. PERFORMED BY: [address] [address] PATHOLOGIST [employer] AYDE MANJARREZ M.D. Performed By: #### B MP, PTH, TSH3, [id number] #### [address] Vitamin D+Metabolites [Mass/ volume] in Serum or PlasmaOrdered By: Vinny Huff on 09-28-2023 Vitamin D+Metabolites [Mass/Vol] 35.5 ng/mL 30-100 [facility] Comment on above: VITAMIN D STATUS 25( OH)VITAMIN D RANGE (ng/mL) Deficient <20 Insufficient 20 to <30Sufficient 30 to 100Reference: Amanda MF,Eliecer NC, Kev GREER, et al. Evaluation,treatment, and prevention of vitamin D deficiency; an Endocrine Society clinical practice guideline. JCEM. 2010; 96(7):1911-30. Vitamin K1on 09-28-2023 Vitamin K1 <0.10 Low 0.10-2.20 [facility] Comment on above: Result Comment: This test was developed and its performance characteristics determined by [employer]. It has not been cleared or approved by the Food and Drug Administration. Performed at: [address] [id number] Caster Operator: Marion Casillas MD, Phone: [phone] PERFORMED BY: [place] [address] PATHOLOGIST [employer] AYDE MANJARREZ M.D. Performed By: #### C REAT, BUN #### [address] #### VITK1 #### [facility] , BN SPINE, LUMBOSACRAL; 2 OR 3 VIEWSon 08-14-2021 BN SPINE, LUMBOSACRAL; 2 OR 3 VIEWS Patient Name: DEANA CROFT STUDY: SPINE, LUMBOSACRAL; 2 OR 3 VIEWS INDICATION: Post op scan Z98.1: S/P lumbar fusion. COMPARISON: July 22, 2021 ACCESSION NUMBER(S): [id number] ORDERING CLINICIAN: TRI AWAD FINDINGS: Status post cement vertebral augmentation across the lytic lesion at L4, unchanged from prior study. Posterior fusion L3-L5 also unchanged. Alignment normal. No evidence of complication. IMPRESSION: Postsurgical changes lumbar spine with L3-L5 fusion and L4 vertebral augmentation, unchanged. Electronically signed by: NELLA MILLIGAN MD Normal [facility] Blood Pressure Cuff Sizeon 0 08-14-2021 Fall [...] 3 TIMES DAILY. Vitamin D3 250 MCG (54816 UT) Oral Capsule Vitals Vital Signs Recorded: 14Aug2021 01:45PM [id number], RUE, Sitting Iutqbnnix99, RUE, Sitting Blood Pressure Cuff SizeLarge Ttysau965 lb BMI Wtpxlmhtoc28.84 kg/m2 BSA Calculated1.99 Tobacco Useb) No Fall [...] Lumbar spine AP and Lateral Normal [facility]uro[facility]berto-[facility] Work Phone: RENAL FUNCTION PANELon 08-01 ALBUMIN Canceled Normal [facility] Comment on above: Order Comment: TEST RENAL FUNCTION PANEL WAS CANCELLED, 08/01/2021 04:43 Performed By: #### U [facility] #### [facility] [address] [place] [address] ANION GAP Canceled Normal [facility] Comment on above: Order Comment: TEST RENAL FUNCTION PANEL WAS CANCELLED, 08/01/2021 04:43 Performed By: #### U RINC #### [facility] [address] [place] [address] BICARBONATE Canceled Normal [facility] Comment on above: Order Comment: TEST RENAL FUNCTION PANEL WAS CANCELLED, 08/01/2021 04:43 Performed By: #### U RINC #### [facility] [address] [place] [address] CALCIUM Canceled Normal [facility] Comment on above: Order Comment: TEST RENAL FUNCTION PANEL WAS CANCELLED, 08/01/2021 04:43 Performed By: #### U RINC #### [facility] [address] [place] [address] CHLORIDE Canceled Normal [facility] Comment on above: Order Comment: TEST RENAL FUNCTION PANEL WAS CANCELLED, 08/01/2021 04:43 Performed By: #### U RINC #### [facility] [address] [place] [address] CREATININE Canceled Normal [facility] Comment on above: Order Comment: TEST RENAL FUNCTION PANEL WAS CANCELLED, 08/01/2021 04:43 Performed By: #### U RINC #### [facility] [address] [place] [address] eGFR FEMALE Canceled Normal [facility] Comment on above: Order Comment: TEST RENAL FUNCTION PANEL WAS CANCELLED, 08/01/2021 04:43 Result Comment: CALC ULATIONS OF ESTIMATED GFR ARE PERFORMED USING THE 2020 CKD-EPI STUDY REFIT EQUATION WITHOUT THE RACE VARIABLE FOR THE IDMS-TRACEABLE CREATININE METHODS. https://jasn.asnjournals.org/content//ASN.09021 67704 Performed By: #### U RINC #### [facility] [address] [place] [address] eGFR MALE Canceled Normal [facility] Comment on above: Order Comment: TEST RENAL FUNCTION PANEL WAS CANCELLED, 08/01/2021 04:43 Result Comment: CALC ULATIONS OF ESTIMATED GFR ARE PERFORMED USING THE 2020 CKD-EPI STUDY REFIT EQUATION WITHOUT THE RACE VARIABLE FOR THE IDMS-TRACEABLE CREATININE METHODS. https://jasn.asnjournals.org/content/ASN.04938 54224 Performed By: #### U RINC #### [facility] [address] [place] [address] GLUCOSE Canceled Normal [facility] Comment on above: Order Comment: TEST RENAL FUNCTION PANEL WAS CANCELLED, 08/01/2021 04:43 Performed By: #### U RINC #### [facility] [address] [place] [address] PHOSPHORUS Canceled Normal [facility] Comment on above: Order Comment: TEST RENAL FUNCTION PANEL WAS CANCELLED, 08/01/2021 04:43 Result Comment: The performance characteristics of phosphorus testing in heparinized plasma have been validated by the individual laboratory site where testing is performed. Testing on heparinized plasma is not approved by the FDA; however, such approval is not necessary. Performed By: #### U RINC #### [facility] [address] [place] [address] POTASSIUM Canceled Normal [facility] Comment on above: Order Comment: TEST RENAL FUNCTION PANEL WAS CANCELLED, 08/01/2021 04:43 Performed By: #### U RINC #### [facility] [address] [place] [address] SODIUM Canceled Normal [facility] Comment on above: Order Comment: TEST RENAL FUNCTION PANEL WAS CANCELLED, 08/01/2021 04:43 Performed By: #### U RINC #### [facility] [address] [place] [address] UREA NITROGEN Canceled Normal [facility] Comment on above: Order Comment: TEST RENAL FUNCTION PANEL WAS CANCELLED, 08/01/2021 04:43 Performed By: #### U RINC #### [facility] [address] [place] [address] Admission Risk Screen - Adul ton 07-31-2021 Admission Risk Screen - Adult Allergies: Allergies: No Known Allergies: Patient Verification: New W ID Band Applied in my Departmentno Type of ID Patient is WearingW wristband, but not applied here Patient Transferred from Other Facility ([facility], [facility],etc)no Patient Identity Verified Bypatient ID [...] AlertFor Ebola-like Symptoms: Isolate Patient and Notify Provider/Health Care Manager For Contact: Notify Provider/Health Care Manager Advance Directive: Advance Directive/DNRno Advance Directive Information [...] instruction; written material Cultural Considerationsnone Developmental Considerationsnone Scientology Considerationsnone Learning Assessment (Other Learner): Other learner availableno Depression Screen: During the past month, have you often been bothered by feeling down, depressed or hopelessno During the past month, have you often had little interest or pleasure in doing thingsno Have you had any thoughts of harming anyone elseno (1) [place] Suicide: Risk Screen Not Applicable/Able to Answerable to be screened In the Past Month: Have you wished you were or could go to sleep and not wake upno In the Past Month: Have you had any actual thoughts of killing yourselfno Lifetime: Have you ever done, started to do, or prepared to do anything to end your lifeno [place] Suicide Risknegative Adult Nutrition Screen: Have you [...] Spiritual Screen: Are there any cultural, spiritual, amish practices/values/needs that are important for us to knowno CAGE: Is thi (more content not included)... Normal [facility] BD CT ABDOMEN AND PELVIS W I V CONTRASTon 07-31-[address] ABDOMEN AND PELVIS W IV CONTRAST Patient Name: DEANA CROFT STUDY: CT ABDOMEN AND PELVIS W IV CONTRAST; 07/31/2021 4:23 am INDICATION: soft tissue infection, Lie Flat: Yes . COMPARISON: None. ACCESSION NUMBER(S): [id number] ORDERING CLINICIAN: THIEN SAGASTUME TECHNIQUE: Contiguous axial [...] Electronically signed by: LUCIA SHIELDS MD Normal [facility] CT Abdomen and Pelvis with I V Contraston 07-31-2021 CT Abdomen and Pelvis W contrast IV Normal -Neurolog -[facility] Work Phone: Consulton 07-31-2021 Consult Service: [...] changes. Lavonne HERNANDEZ, RN, CWOCN pager # [phone]/[facility] [employer] Consult Status: Consult Order ID: [id number] Electronic Signatures: Lavonne Cantu (DORA) (Signed 31-Jul-2021 13:36) Authored: Service, History of Present Illness, Review Family/Social History and ROS, Allergies, Assessment/Recommendations, Note Completion Last Updated: 31-Jul-2021 13:36 by Lavonne Cantu (DORA) References: 1. Data Referenced From Patient Profile - Adult v2 31-Jul-2021 06:02 Normal [facility] Consult-Plastic Surgeryon Consult-Plastic Surgery Service: Service: Plastic [...] Level, Venous 139 Culture, Blood Trending View [id number] 19:41:00 30-Jul-2021 19:13:00 Culture, BloodNEGATIVE TO DATE, CULTURE IN PROGRESS. NEGATIVE TO DATE, CULTURE IN PROGRESS. Coronavirus 2019, Screen Asymptomatic 30-Jul-2021 19:17:00 ResultValue Fluid Source Nasal, Nasopharyngeal Coronavirus 2019,PCR NOT DETECTED Reference Range: Not Detected .This test has (more content not included)... Normal [facility] Daily Progress Note-Plastic Surgeryon 07-31-2021 Daily Progress Note-Plastic Surgery Service: Plastic Surgery Subjective Data: DEANA CROFT is a 50 year old Female who is Hospital Day # 2. Patient resting in bed. Denies fever, chest pain, SOB, abd pain, n/v/d. Patient states abrasion feels much better after xeroform and dressing was applied to the area. Objective Data: Objective Information: T PRBPMAPSpO2 [id number]/7299% Date/Time07/31 8: 8: 8: 8: 8:07 Range(35.7C [...] to present to the ED by her [facility] nurse given concern for early spinal wound [...] Plastic and Reconstructive Surgery Doc Halo, Pager #[phone], Team phones: [phone] Time spent on the assessment of patient, [...] 31-Jul-2021 11:08 by Keira Stafford (PAC) Normal [facility] Discharge [id number] Discharge Profile2 Discharge Orders: Anticipated Discharge Date: Anticipated Discharge [id number] Problem List: Prelim Disch Dx: Superficial dehiscence [...] 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 Do NOT bend at waist or twist. 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 Wound Care: Inspect your incision daily [...] Neurosurgeon: Physician/Dept/ServiceNeuro surgeon Dr. Tri Awad Scheduled Date/[id number] 13:45 [facility], 5th Floor, [address] [place] [address] Phone [phone] CommentsPlease wear a mask when entering the building. Please arrive 10-15 minutes early, bring photo ID, insurance card, discharge summary, and list of current medications and dosages. If unable to keep this appointment, please call to cancel at least 24 hours prior to appointment. Follow-Up - Neurosurgery [facility]: Physician/Dept/ServiceNeuro surgery at [facility] Dr. Tri Awad Scheduled Date/[id number] 13:00 Phone [phone] [facility] (more content not included)... Normal [facility] Laboratory - Chemistry and C hemistry - challengeon 07-31-2021 Anion gap 4 (BldV) [Moles/Vol] 14 mmol/L 10 - 25 MP-Neurolog [facility] 5th Work Phone: Base excess Calc (BldV) [Moles/Vol] -6.4000 mmol/L below low threshold -2.0 - 3.0 MP-Neurolog [facility] 5[facility] Work Phone: Calcium.ionized (BldV) [Moles/Vol] 1.27 mmol/L See Below -Neurolog y-[facility] Work Phone: Comment on above: Reference Range: 1.1 0 - 1.33 Chloride (BldV) [Moles/Vol] 110 mmol/L above high threshold 98 - 107 -Neurolog y-[facility] Work Phone: CO2 (BldV) [Partial pressure] 37 mm[Hg] below low threshold 41 - 51 MP-Neurolog y-[facility] Work Phone: Glucose [Mass/Vol] 88 mg/dL 74 - 99 -Alejandrina rolog y-[facility] Work Phone: HCO3 (Bld) [Moles/Vol] 19.1 mmol/L below low threshold See Below -Neurolog y-[facility] Work Phone: Comment on above: Reference Range: 22. 0 - 26.0 Lactate (BldV) [Moles/Vol] 0.5 mmol/L 0.4 - 2.0 -Neurolog y-[facility] Work Phone: Oxygen (BldV) [Partial pressure] 26 mm[Hg] below low threshold 35 - 45 -Neurolog y-[facility] Work Phone: Oxyhemoglobin (BldV) [Mass fraction] 33.2 % below low threshold See Below -Neurolog y-[facility] Work Phone: Comment on above: Reference Range: 45. 0 - 75.0 pH (BldV) 7.32 [pH] below low threshold See Below -Neurolog y-[facility] Work Phone: Comment on above: Reference Range: 7.3 3 - 7.43 Potassium (BldV) [Moles/Vol] 4.5 mmol/L 3.5 - 5.3 -Neurolog y-[facility] Work Phone: Sodium (BldV) [Moles/Vol] 139 mmol/L 136 - 145 -Neurolog y-[facility] Work Phone: Laboratory - Hematology and Cell [...] Reconciliation Type: Discharge requested on behalf of Elizabeth Urias (Advanced Practice Nurse) done by Elizabeth Urias ([facility]) Discharge - Partial Reconciliation: 31-Jul-2021 13:35 by: Elizabeth Urias ([facility]) Discharge - Reconciliation: 31-Jul-2021 14:02 by: Elizabeth Urias ([facility]) Home Medications EnteredHOME MEDICATIONS AT DISCHARGE DateReconciliation [...] Topical Da (more content not included)... Normal [facility] Patient Profile - Adult v2on 07-31-2021 Patient [...] Reactionno(1) Weight in kg90 kilogram(s) Weight in sde252.4 pound(s) Weight Methodactual (measured) Scale Typestanding Height [...] and Physical - Neuro-Surgery 30-Jul-2021 18:29 Normal [facility] TYPE + SCREENon 07-31-2021 ABO TYPE O Normal [facility] Comment on above: Performed By: #### U RINC #### [facility] [address] [place] [address] RH TYPE Positive Normal [facility] Comment on above: Performed By: #### U RINC #### [facility] [address] [place] [address] VENOUS FULL PANELon 08-01-19 22 Anion gap [Moles/Vol] 14 mmol/L Normal 10 - 25 [facility] Comment on above: Performed By: #### U RINC #### [facility] [address] [place] [address] BASE EXCESS-BLOOD -6.4 mmol/L Low -2.0 - 3.0 [facility] Comment on above: Performed By: #### U RINC #### [facility] [address] [place] [address] BICARB, CALCULATED 19.1 mmol/L Low 22.0 - 26.0 [facility] Comment on above: Performed By: #### U RINC #### [facility] [address] [place] [address] CALCIUM,IONIZED 1.27 mmol/L Normal 1.10 - 1.33 [facility] Comment on above: Performed By: #### U RINC #### [facility] [address] [place] [address] Chloride [Moles/Vol] 110 mmol/L High 98 - 107 [facility] Comment on above: Performed By: #### U RINC #### [facility] [address] [place] [address] Glucose [Mass/Vol] 88 mg/dL Normal 74 - 99 [facility] Comment on above: Performed By: #### U RINC #### [facility] [address] [place] [address] Hematocrit (Bld) [Volume fraction] 27.0 % Low 36.0 - 46.0 [facility] Comment on above: Performed By: #### U RINC #### [facility] [address] [place] [address] Hemoglobin (Bld) [Mass/Vol] 9.1 g/dL Low 12.0 - 16.0 [facility] Comment on above: Performed By: #### U RINC #### [facility] [address] [place] [address] Lactate [Moles/Vol] 0.5 mmol/L Normal 0.4 - 2.0 [facility] Comment on above: Performed By: #### U RINC #### [facility] [address] [place] [address] OXY HGB 33.2 % Low 45.0 - 75.0 [facility] Comment on above: Performed By: #### U RINC #### [facility] [address] [place] [address] Oxygen (Bld) [Partial pressure] 26 mm[Hg] Low 35 - 45 [facility] Comment on above: Performed By: #### U RINC #### [facility] [address] [place] [address] PATIENT TEMPERATURE 37.0 degrees C Normal [facility] Comment on above: Result Comment: NOTE : PATIENT RESULTS ARE NOT CORRECTED FOR TEMPERATURE. Performed By: #### U RINC #### [facility] [address] [place] [address] PCO2 37 mmHg Low 41 - 51 [facility] Comment on above: Performed By: #### U RINC #### [facility] [address] [place] [address] pH (Bld) 7.32 [pH] Low 7.33 - 7.43 [facility] Comment on above: Performed By: #### U RINC #### [facility] [address] [place] [address] Potassium [Moles/Vol] 4.5 mmol/L Normal 3.5 - 5.3 [facility] Comment on above: Performed By: #### U RINC #### [facility] [address] [place] [address] SO2 35 % Low 45 - 75 [facility] Comment on above: Performed By: #### U RINC #### [facility] [address] [place] [address] Sodium [Moles/Vol] 139 mmol/L Normal 136 - 145 [facility] Comment on above: Performed By: #### U RINC #### [facility] [address] [place] [address] Vital signson 07-31-2021 Oxygen saturation in Venous blood 35 % below low threshold 45 - 75 -Neurolog [facility] Work Phone: BASIC METABOLIC PANELon 07-03 Anion gap [Moles/Vol] 13 mmol/L Normal 10 - 20 [facility] Comment on above: Performed By: #### U RINC #### [facility] [address] [place] [address] Calcium [Mass/Vol] 9.1 mg/dL Normal 8.6 - 10.6 [facility] Comment on above: Performed By: #### U RINC #### [facility] [address] [place] [address] Chloride [Moles/Vol] 111 mmol/L High 98 - 107 [facility] Comment on above: Performed By: #### U RINC #### [facility] [address] [place] [address] Creatinine [Mass/Vol] 0.93 mg/dL Normal 0.50 - 1.05 [facility] Comment on above: Performed By: #### U RINC #### [facility] [address] [place] [address] GFR/1.73 sq M.predicted among non-blacks MDRD (S/P/Bld) [Vol rate/Area] 74 mL/min/{1.73_m2} Normal >90 [facility] Comment on above: Result Comment: CALC ULATIONS OF ESTIMATED GFR ARE PERFORMED USING THE 2020 CKD-EPI STUDY REFIT EQUATION WITHOUT THE RACE VARIABLE FOR THE IDMS-TRACEABLE CREATININE METHODS. https://jasn.asnjournals.org/content/early//ASN.06384 09182 Performed By: #### U RINC #### [facility] [address] [place] [address] Glucose [Mass/Vol] 84 mg/dL Normal 74 - 99 [facility] Comment on above: Performed By: #### U RINC #### [facility] [address] [place] [address] HCO3 (Bld) [Moles/Vol] 20 mmol/L Low 21 - 32 [facility] Comment on above: Performed By: #### U RINC #### [facility] [address] [place] [address] Potassium [Moles/Vol] 3.4 mmol/L Low 3.5 - 5.3 [facility] Comment on above: Performed By: #### U RINC #### [facility] [address] [place] [address] Sodium [Moles/Vol] 141 mmol/L Normal 136 - 145 [facility] Comment on above: Performed By: #### U RINC #### [facility] [address] [place] [address] Urea nitrogen [Mass/Vol] 15 mg/dL Normal 6 - 23 [facility] Comment on above: Performed By: #### U RINC #### [facility] [address] [place] [address] BLOOD CULTURE, BACTERIALon 0 07-30-2021 BLOOD CULTURE, BACTERIAL PATIENT: DEANA CROFT LOCATION: [place] [address] BILL#: [id number] : 68 AGE: SEX: F ORDERED BY: MATHEUS WALKER SOURCE: Blood COLLECTED: 07/30/21 19:41 ANTIBIOTICS AT SULMA.: RECEIVED : 07/30/21 21:14 SITE: PERIPHERAL R E S U L T S BLOOD CULTURE, BACTERIAL FINAL 08/03/21 21:42 No Growth at 1 days No Growth at 2 days No Growth at 3 days NO GROWTH at 4 days - FINAL REPORT Normal [facility] Comment on above: Performed By: #### U RINC #### [facility] [address] [place] [address] BLOOD CULTURE, BACTERIAL PATIENT: DEANA CROFT LOCATION: [place] [address] BILL#: [id number] : 68 AGE: SEX: F ORDERED BY: MATHEUS WALKER SOURCE: Blood COLLECTED: 07/30/21 19:13 ANTIBIOTICS AT SULMA.: RECEIVED : 07/30/21 20:20 SITE: PERIPHERAL R E S U L T S BLOOD CULTURE, BACTERIAL FINAL 08/03/21 21:42 No Growth at 1 days No Growth at 2 days No Growth at 3 days NO GROWTH at 4 days - FINAL REPORT Normal [facility] Comment on above: Performed By: #### S TAP #### [facility] [address] [place] [address] C Reactive Protein, Serumon 07-30-2021 CRP [Mass/Vol] 2.79 mg/dL Abnormal -Faitho [facility]dal[facility] 5[facility] Work Phone: Comment on above: REF VALUE< 1.00 C-REACTIVE PROTEINon 022 C-REACTIVE PROTEIN 2.79 mg/dL Abnormal [facility] Comment on above: Result Comment: REF VALUE < 1.00 Performed By: #### C BCDF #### [facility] [address] [place] [address] CBC AND DIFFERENTIALon 07-30 % AUTOMATED IMMATURE GRAN 1.1 % High 0.0 - 0.9 [facility] Comment on above: Result Comment: Fernanda ture Granulocyte Count (IG) includes promyelocytes, myelocytes and metamyelocytes but does not include bands. Percent differential counts (%) should be interpreted in the context of the absolute cell counts (cells/L). Performed By: #### U RINC #### [facility] [address] [place] [address] Basophils (Bld) [#/Vol] 0.03 10*3/uL Normal 0.00 - 0.10 [facility] Comment on above: Performed By: #### U RINC #### [facility] [address] [place] [address] Basophils/100 WBC (Bld) 0.6 % Normal 0.0 - 2.0 [facility] Comment on above: Performed By: #### U RINC #### [facility] [address] [place] [address] Eosinophils (Bld) [#/Vol] 0.10 10*3/uL Normal 0.00 - 0.70 [facility] Comment on above: Performed By: #### U RINC #### [facility] [address] [place] [address] Eosinophils/100 WBC (Bld) 2.2 % Normal 0.0 - 6.0 [facility] Comment on above: Performed By: #### U RINC #### [facility] [address] [place] [address] Lymphocytes (Bld) [#/Vol] 1.19 10*3/uL Low 1.20 - 4.80 [facility] Comment on above: Performed By: #### U RINC #### [facility] [address] [place] [address] Lymphocytes/100 WBC (Bld) 25.6 % Normal 13.0 - 44.0 [facility] Comment on above: Performed By: #### U RINC #### [facility] [address] [place] [address] Monocytes (Bld) [#/Vol] 0.15 10*3/uL Normal 0.10 - 1.00 [facility] Comment on above: Performed By: #### U RINC #### [facility] [address] [place] [address] Monocytes/100 WBC (Bld) 3.2 % Normal 2.0 - 10.0 [facility] Comment on above: Performed By: #### U RINC #### [facility] [address] [place] [address] Neutrophils (Bld) [#/Vol] 3.12 10*3/uL Normal 1.20 - 7.70 [facility] Comment on above: Performed By: #### U RINC #### [facility] [address] [place] [address] Neutrophils/100 WBC (Bld) 67.3 % Normal 40.0 - 80.0 [facility] Comment on above: Performed By: #### U RINC #### [facility] [address] [place] [address] Erythrocyte distribution width (RBC) [Ratio] 21.4 % High 11.5 - 14.5 [facility] Comment on above: Performed By: #### U RINC #### [facility] [address] [place] [address] Hematocrit (Bld) [Volume fraction] 52.8 % High 36.0 - 46.0 [facility] Comment on above: Performed By: #### U RINC #### [facility] [address] [place] [address] Hemoglobin (Bld) [Mass/Vol] 16.2 g/dL High 12.0 - 16.0 [facility] Comment on above: Performed By: #### U RINC #### [facility] [address] [place] [address] MCHC (RBC) [Mass/Vol] 30.7 g/dL Low 32.0 - 36.0 [facility] Comment on above: Performed By: #### U RINC #### [facility] [address] [place] [address] MCV (RBC) [Entitic vol] 86 fL Normal 80 - 100 [facility] Comment on above: Performed By: #### U RINC #### [facility] [address] [place] [address] NUCLEATED RBC 0.0 /100 WBC Normal 0.0-0.0 [facility] Comment on above: Performed By: #### U RINC #### [facility] [address] [place] [address] Platelets (Bld) [#/Vol] 275 10*3/uL Normal 150 - 450 [facility] Comment on above: Performed By: #### U RINC #### [facility] [address] [place] [address] RBC 6.12 x10E12/L High 4.00 - 5.20 [facility] Comment on above: Performed By: #### U RINC #### [facility] [address] [place] [address] WBC (Bld) [#/Vol] 4.6 10*3/uL Normal 4.4 - 11.3 [facility] Comment on above: Performed By: #### U RINC #### [facility] [address] [place] [address] COAGULATION SCREENon 022 aPTT Coag (Bld) [Time] 35 s Normal 26 - 39 [facility] Comment on above: Result Comment: THE APTT IS NO LONGER USED FOR MONITORING UNFRACTIONATED HEPARIN THERAPY. FOR MONITORING HEPARIN THERAPY, USE THE HEPARIN ASSAY. Performed By: #### U RINC #### [facility] [address] [place] [address] PT Coag (PPP) [Time] 12.0 s Normal 9.8 - 13.4 [facility] Comment on above: Performed By: #### U RINC #### [facility] [address] [place] [address] PT, INR 1.0 Normal 0.9 - 1.1 [facility] Comment on above: Performed By: #### U RINC #### [facility] [address] [place] [address] CORONAVIRUS 2019, SCREEN ASY MPTOMATICon 07-30-2021 SARS-CoV-2 (COVID-19) RNA LORIE+probe Ql (Unsp spec) Not detected Normal Not Detected [facility] Comment on above: Result Comment: . This test has received FDA Emergency Use Authorization (EUA) and has been verified by [facility] ([facility]). This test is only authorized for the duration of time that circumstances exist to justify the authorization of the emergency use of in vitro diagnostic tests for the detection of SARS-CoV-2 virus and/or diagnosis of COVID-19 infection under section 564(b)(1) of the Act, 21 U.S.C. 360bbb-3(b)(1), unless the authorization is terminated or revoked sooner. [facility] is certified under CLIA-88 as qualified to perform high complexity testing. Testing is performed in the [facility] located at [address] [place] [address]. SARS-CoV-2/Flu/RSV Multiplex Test: Fact sheet for providers: https://www.fda.gov/media/291468/download Fact sheet for patients: https://www.fda.gov/media/211092/download Performed By: #### C OVSC #### [facility] [address] [place] [address] Lab Specimen Source Nasal, Nasopharyngeal Normal [facility] Comment on above: Performed By: #### C OVSC #### [facility] [id number] [place] [address] Complete Blood Count + Diffe yolis 07-30-2021 Basophils/100 WBC (Bld) 0.6 % 0.0 - 2.0 -Neurolog y-[facility] 5[facility] Work Phone: Erythrocyte distribution width (RBC) [Ratio] 21.4 % above high threshold See Below -Neurolog y-[facility] Work Phone: Comment on above: Reference Range: 11. 5 - 14.5 Hematocrit (Bld) [Volume fraction] 52.8 % above high threshold See Below -Neurolog y-[facility] 5[facility] Work Phone: Comment on above: Reference Range: 36. 0 - 46.0 Hemoglobin (Bld) [Mass/Vol] 16.2 g/dL above high threshold See Below -Neurolog y-[facility] 5[facility] Work Phone: Comment on above: Reference Range: 12. 0 - 16.0 Lymphocytes/100 WBC (Bld) 25.6 % See Below [facility] Work Phone: Comment on above: Reference Range: 13. 0 - 44.0 MCHC (RBC) [Mass/Vol] 30.7 g/dL below low threshold See Below MP-Neurolog -[facility] Work Phone: Comment on above: Reference Range: 32. 0 - 36.0 MCV (RBC) [Entitic vol] 86 fL 80 - 100 MP-Neurolog y-[facility] Work Phone: Monocytes/100 WBC (Bld) 3.2 % 2.0 - 10.0 MP-Neurolog y-[facility] Work Phone: Neutrophils/100 WBC (Bld) 67.3 % See Below MP-Neurolog y-[facility] Work Phone: Comment on above: Reference Range: 40. 0 - 80.0 Platelets (Bld) [#/Vol] 275 10*3/uL 150 - 450 -Neurolog -[facility] Work Phone: RBC (Bld) [#/Vol] 6.12 {x10E12/L} above high threshold See Below -Neurolog -[facility] Work Phone: Comment on above: Reference Range: 4.0 0 - 5.20 WBC (Bld) [#/Vol] 4.6 10*3/uL 4.4 - 11.3 -Alejandrina rolog [facility] Work Phone: Complete Blood Count + Differential 0.03 {x10E9/L} See Below MP-Neurolog [facility] Work Phone: Comment on above: Reference Range: 0.0 0 - 0.10 Complete Blood Count + Differential 0.10 {x10E9/L} See Below MP-Neurolog y-[facility] Work Phone: Comment on above: Reference Range: 0.0 0 - 0.70 Complete Blood Count + Differential 0.15 {x10E9/L} See Below MP-Neurolog y-[facility] Work Phone: Comment on above: Reference Range: 0.1 0 - 1.00 Complete Blood Count + Differential 1.19 {x10E9/L} below low threshold See Below MP-Neurolog y-[facility] Work Phone: Comment on above: Reference Range: 1.2 0 - 4.80 Complete Blood Count + Differential 3.12 {x10E9/L} See Below -[facility] 5[facility] Work Phone: Comment on above: Reference Range: 1.2 0 - 7.70 Complete Blood Count + Differential 2.2 % 0.0 - 6.0 [facility] Work Phone: Complete Blood Count + Differential 1.1 % above high threshold 0.0 - 0.[address] Work Phone: Comment on above: Immature Granulocyte Count (IG) includes promyelocytes, myelocytes and metamyelocytes but does not include bands. Percent differential counts (%) should be interpreted in the context of the absolute cell counts (cells/L). Complete Blood Count + Differential 0.0 {/100_WBC} 0.0-0.0 [facility] Work Phone: Coronavirus 2019 RNA by PCR, Screening Asymptomticon 07-30-2021 Coronavirus 2019 RNA by PCR, Screening Asymptomtic Not detected Normal See Below [address] Work Phone: Comment on above: SOURCE: Nasal, Nasop haryngealReference Range: Not Detected.This test has received FDA Emergency Use Authorization (EUA) and has been verified by [facility] ([facility]). This test is only authorized for the duration of time that circumstances exist to justify the authorization of the emergency use of in vitro diagnostic tests for the detection of SARS-CoV-2 virus and/or diagnosis of COVID-19 infection under section 564(b)(1) of the Act, 21 U.S.C. 360bbb-3(b)(1), unless the authorization is terminated or revoked sooner. [facility] is certified under CLIA-88 as qualified to perform high complexity testing. Testing is performed in the [facility] located at [address] [place] [address].SARS-CoV-2/Flu/RSV Multiplex Test: Fact sheet for providers: https://www.fda.gov/media/754176/downloadFact sheet for patients: https://www.fda.gov/media/797591/download Covid 19 Resultson 2 SARS-CoV-2 (COVID-19) RNA [...] You may also be contacted by the [facility] to see if any of [...] or Naproxen (Aleve) can also be used. Qcpc-amv-grtjigy cough and cold medicines can be used according to the instructions on the package. Some cqvs-opm-blwrajt medicines also contain acetaminophen. Make sure you [...] water are not available, use alcohol-based hand aviation engineer. Avoid touching your eyes, nose, and mouth [...] 24 desi (more content not included)... Normal [facility] Cult, Bloodon 07-30-2021 Bacteria identified Cx Nom (Bld) MP-Neurolog y-[facility] Work Phone: Bacteria identified Cx Nom (Bld) [facility] Work Phone: Laboratory - Blood bankon ABO group Nom (Bld) O MP-Ne urolog -[facility] Work Phone: Blood group antibody screen Ql Negative [facility] Work Phone: Rh immune globulin screen (Bld) [Interp] Positive MP-Neurolo g -[facility] Work Phone: Laboratory - Chemistry and C hemistry - challengeon 07-30-2021 Anion gap [Moles/Vol] 13 mmol/L 10 - 20 MP- Neurolog y-[facility] Work Phone: Calcium [Mass/Vol] 9.1 mg/dL 8.6 - 10.6 MP-Alejandrina rolog y-[facility] Work Phone: Chloride [Moles/Vol] 111 mmol/L above high threshold 98 - 107 [facility] Work Phone: CO2 [Moles/Vol] 20 mmol/L below low threshold 21 - 32 [facility] Work Phone: Creatinine [Mass/Vol] 0.93 mg/dL See [...] RACE VARIABLE FOR THE IDMS-TRACEABLE CREATININE METHODS.https://jasn.asnjournals.org/content//A SN.7225741903 Few DEBBIE-Neurolog Nestor Work Phone: See Below [...] from all sources in a 24 hour [id number] Reviewed and Held acetaminophen-hydrocodone 325 mg-5 mg oral tablet 1 tab(s) orally every 6 to 8 hours, As [id number] Reviewed and Held amitriptyline 25 mg oral tablet 1 tab(s) oral once a [id number] Amitriptyline Tablet (ELAVIL)DOSE = 25 mg Oral At Bedtimeamitriptyline 25 mg oral tablet continued as the inpatient order Amitriptyline cholecalciferol 1250 mcg (50,000 intl units) oral capsule 1 cap(s) orally once a week on Reviewed and Held cyclobenzaprine 10 mg oral tablet 1 tab(s) orally 3 times a day, as needed while having muscle [id number] Reviewed and Held DULoxetine 30 mg oral delayed release capsule 1 tab(s) oral once a day at [id number] DULoxetine Delayed Release Capsule (CYMBALTA)DOSE = 30 mg Oral DailyClinician Notes: BEDTIME DOSEDULoxetine 30 mg oral delayed release capsule continued as the inpatient order DULoxetine DULoxetine 60 mg oral delayed release capsule 1 tab(s) oral once a day in the [id number]-2547 DULoxetine Delayed Release Capsule (CYMBALTA)DOSE = 60 [...] capsule 1 cap(s) oral 3 times a [id number] Pregabalin Capsule (LYRICA)DOSE = 100 mg Oral 3 Times a DayLyrica 100 mg oral capsule continued as the inpatient order Pregabalin multivitamin Multiple Vitamins oral tablet 1 tab(s) oral once a [id number] Multivitamin with Minerals TabletDOSE = 1 tablet(s) Oral Dailymultivitamin Multiple Vitamins oral tablet continued as the inpatient order Multivitamin with Minerals oxyCODONE 5 mg oral tablet 1 tab(s) orally every 6 hours, As Needed for severe breakthrough post operative pain, ICD 10: [id number]-3008 Reviewed and Held Oyster Shell Calcium 500 (1250 mg calcium carbonate) oral tablet 3 tab(s) orally 2 times a [id number]-Vrt-9797 Calcium Carbonate Chewable Tablet, Chewable (TUMS)DOSE = [...] (PERCOCET)DOSE = 1 tablet(s) Oral Once Normal [facility] Provider Note - ED v3on 03-3 Provider [...] and evaluated the patient. Patient and/or patient business office representative counseled regarding contents of Hospital Course / Medical Decision Making as well as diagnosis and plan. All (more content not included)... Normal [facility] RED CELL MORPHOLOGYon 2021 OVALOCYTES Few Normal [facility] Comment on above: Performed By: #### U RINC #### [facility] [address] [place] [address] RBC morphology finding Nom (Bld) See Below Normal [facility] Comment on above: Performed By: #### U RINC #### [facility] [address] [place] [address] TARGET CELLS Few Normal [facility] Comment on above: Performed By: #### U RINC #### [facility] [address] [place] [address] SEDIMENTATION RATE, ERYTHROC YTEon 07-30-2021 SEDIMENTATION RATE, ERYTHROCYTE 42 mm/h High 0 - 30 [facility] Comment on above: Performed By: #### C OVSC #### [facility] [address] [place] [address] Sedimentation Rate, Erythroc yteon 07-30-2021 ESR (Bld) [...] neuronavigation. Objective Data: Objective Information: T PRBPMAPSpO2 Value36.24729307/5598% Date/Time07/23 21: 21: 16: 21: 21:09 Range(36.1C - 37.9C ) (64 - 106 ) (17 - 20 ) (94 - 101 )/ (55 - 65 ) (94% - 100% ) Highest temp of 37.9 C was recorded at 07/23 16:28 Pain reported at 07/23 21:09: 6 = Moderate ---- Intake and Output ----- Mn/Dy/Year TimeIntakeOutputNet Jul 23, 2021 10:00 [id number] Jul 23, 2021 2:00 pm000 Jul 23, 2021 6:00 [id number] The Intake and Output Totals for the last 24 hours are: IntakeOutputNet [id number] Physical Exam by System: Neurological: BUE 09/04 [...] the note. I personally evaluated the patient [id number] Electronic Signatures: Bong Skinner (Resident)) (Signed 23-Jul-2021 23:19) Authored: Service, Subjective Data, Objective Data, Assessment and Plan, Note Completion Tri Awad) (Signed 24-Jul-2021 16:59) Authored: Note Completion Co-Signer: Service, Subjective Data, Objective Data, Assessment and Plan, Note Completion Last Updated: 24-Jul-2021 16:59 by Tri Awad) Normal [facility] Rehab Note-occupational therapist aide apist - S/OT under direct supervon 07-24-2021 Rehab Note-occupational therapist - S/OT under direct superv Rehab: Info: Disciplineoccupational therapist; S/OT under direct supervision of OT. Mode of Treatmentindividual therapy; occupational therapy Time IN09:30 Time OUT09:54 Total Treatment [id number] Patient in ... at end of sessionbed, [...] and Tubeswoundvac Vision/Cognition: Visual Impairment/Limitationscorre ctive lenses time checker Affect/Mental Status (Cognitive)WFL Orientation Status (Cognition)oriented x 3 Cognitive Function (Cognitive)WFL Able to Follow Commands (Receptive)WFL Mobility/Tone: Bed Mobility Assessment/InterventionsSta rted and ended seated EOB Transfer Assessment/Interventionssit to stand transfer; stand to sit transfer; No device Sit-Stand Geneva (Transfers)standby assist Stand-Sit Geneva (Transfers)standby assist Impairments Impacting Function (Mobility)balance; pain ADL: BADL Assessment/Interventionbath ing; upper body dressing; grooming Geneva Level (Bathing)standby assist; Pt was able to stand at the sink in the bathroom without a device and get washed up with a washcloth and SBA. Position (Bathing)standing Geneva Level (Upper Body Dressing)supervision; don; doff; front opening garment Geneva Level (Grooming)Pt was able to stand at the sink in the bathroom and brush her hair then teeth with SBA and no device. Impairments, BADL Safety/Performancebalance; pain Motor: Sitting, Static (Balance)good balance Sitting, Dynamic (Balance)good balance [id number]-fx-Woshc (Balance)good balance Standing, Static (Balance)good balance Standing, [...] Bathing Upper Body: Established Bathing Upper Body: Geneva Level Goalindependent Bathing Upper Body: Time Frame for Goal1 wk Bathing Lower Body: Established Bathing Lower Body: Geneva Level Goalmodified independent Bathing Lower Body: Time Frame for Goal1 wk Grooming: Established Grooming: Geneva Level Goalindependent Grooming: Time Frame for Goal1 wk Upper Body Dressing: Established Upper Body Dressing: Geneva Level Goalindependent Upper Body Dressing: Time Frame for Goal1 wk Lower Body Dressing: Established Lower Body Dressing: Geneva Level Goalmodified independent Lower Body Dressing: Time Frame for Goal1 wk Toileting: Established [id number] Toileting: Geneva Level Goalmodified independent Toileting: Time Frame for [...] 24-Jul-2021 13:32 by Lucie Nava (OT) Normal [facility] CBCon 07-23-2021 Erythrocyte distribution width (RBC) [Ratio] 18.0 % High 11.5 - 14.5 [facility] Comment on above: Performed By: #### S TAPH #### [facility] [address] [place] [address] Hematocrit (Bld) [Volume fraction] 30.1 % Low 36.0 - 46.0 [facility] Comment on above: Performed By: #### S TAPH #### [facility] [address] [place] [address] Hemoglobin (Bld) [Mass/Vol] 8.5 g/dL Low 12.0 - 16.0 [facility] Comment on above: Performed By: #### S TAPH #### [facility] [address] [place] [address] MCHC (RBC) [Mass/Vol] 28.2 g/dL Low 32.0 - 36.0 [facility] Comment on above: Performed By: #### S TAPH #### [facility] [address] [place] [address] MCV (RBC) [Entitic vol] 91 fL Normal 80 - 100 [facility] Comment on above: Performed By: #### S TAPH #### [facility] [address] [place] [address] NUCLEATED RBC 0.0 /100 WBC Normal 0.0-0.0 [facility] Comment on above: Performed By: #### S TAPH #### [facility] [address] [place] [address] Platelets (Bld) [#/Vol] 279 10*3/uL Normal 150 - 450 [facility] Comment on above: Performed By: #### S TAPH #### [facility] [address] [place] [address] RBC 3.29 x10E12/L Low 4.00 - 5.20 [facility] Comment on above: Performed By: #### S TAPH #### [facility] [address] [place] [address] WBC (Bld) [#/Vol] 7.7 10*3/uL Normal 4.4 - 11.3 [facility] Comment on above: Performed By: #### S TAPH #### [facility] [address] [place] [address] Daily Progress Note-Farooq zimmerman 07-23-2021 Daily Progress Note-Neurosurgery Service: Neurosurgery Subjective Data: DEANA CROFT is a 50 year old Female who is Hospital Day # 2 and POD #1 for 1. L3/5 posterior instrumented fusion;2. L4/5 laminectomy;3. L4 open kyphoplasty;5. neuronavigation. Objective Data: Objective Information: T PRBPMAPSpO2 Value36.14165962/6597% Date/Time07/22 17: 17: 17: 17: 17:06 Range(36.1C - 36.3C ) (64 - 86 ) (17 - 20 ) (96 - 106 )/ (58 - 65 ) (95% - 97% ) Pain reported at 07/22 16:15: 6 = Moderate ---- Intake and Output ----- Mn/Dy/Year TimeIntakeOutputNet Jul 22, 2021 2:00 [id number] Jul 22, 2021 6:00 [id number] Jul 21, 2021 10:00 [id number] The Intake and Output Totals for the last 24 hours are: IntakeOutputNet [id number] Physical Exam by System: Neurological: BUE 09/04 [...] the note. I personally evaluated the patient [id number] Electronic Signatures: Bong Skinner (Resident)) (Signed 22-Jul-2021 19:39) Authored: Service, Subjective Data, Objective Data, Assessment and Plan, Note Completion Tri Awad) (Signed 24-Jul-2021 16:58) Authored: Note Completion Co-Signer: Service, Subjective Data, Objective Data, Assessment and Plan, Note Completion Last Updated: 24-Jul-2021 16:58 by Tri Awad) Normal [facility] Laboratory - Hematology and Cell countson 07-23-2021 Erythrocyte distribution width (RBC) [Ratio] 18.0 % above high threshold See Below MG-Neurosur humberto-[facility] Work Phone: Comment on above: Reference Range: 11. 5 - 14.5 Hematocrit (Bld) [Volume fraction] 30.1 % below low threshold See Below [facility]-Neurosur humberto-[facility] Work Phone: Comment on above: Reference Range: 36. 0 - 46.0 Hemoglobin (Bld) [Mass/Vol] 8.5 g/dL below low threshold See Below [facility]-Neurosur humberto-[facility] Work Phone: Comment on above: Reference Range: 12. 0 - 16.0 MCHC (RBC) [Mass/Vol] 28.2 g/dL below low threshold See Below [facility]Neurosur humberto-[facility] Work Phone: Comment on above: Reference Range: 32. 0 - 36.0 MCV (RBC) [Entitic vol] 91 fL 80 - 100 [facility] Work Phone: Platelets (Bld) [#/Vol] 279 10*3/uL 150 - 450 [facility] Work Phone: RBC (Bld) [#/Vol] 3.29 {x10E12/L} below low threshold See Below [facility]-Neurosur [facility] Work Phone: Comment on above: Reference Range: 4.0 0 - 5.20 WBC (Bld) [#/Vol] 7.7 10*3/uL 4.4 - 11.3 MG-Alejandrina rosur [facility] Work Phone: No Panel Informationon 07-23 0.0 {/100_WBC} 0.0-0.0 [facility]-Neurosu r [facility] Work Phone: Order Reconciliationon 07-23 Order Reconciliation Page 1 Discharge Reconciliation Document Reconciliation Type: Discharge requested on behalf of Perri Hadley (Advanced Practice Nurse) done by Perri Hadley (GREENS KEEPER-EVENTS SPECIALIST) Discharge - Reconciliation: 23-Jul-2021 14:33 by: Perri Hadley (GREENS KEEPER-EVENTS SPECIALIST) Home Medications EnteredHOME MEDICATIONS AT DISCHARGE DateReconciliation [...] Every Mor (more content not included)... Normal [facility] RENAL FUNCTION PANELon 07-23 Albumin [Mass/Vol] 2.4 g/dL Low 3.4 - 5.0 [facility] Comment on above: Performed By: #### S TAPH #### [facility] [address] [place] [address] Anion gap [Moles/Vol] 9 mmol/L Low 10 - 20 [facility] Comment on above: Performed By: #### S TAPH #### [facility] [address] [place] [address] Calcium [Mass/Vol] 7.7 mg/dL Low 8.6 - 10.6 [facility] Comment on above: Performed By: #### S TAPH #### [facility] [address] [place] [address] Chloride [Moles/Vol] 111 mmol/L High 98 - 107 [facility] Comment on above: Performed By: #### S TAPH #### [facility] [address] [place] [address] Creatinine [Mass/Vol] 1.19 mg/dL High 0.50 - 1.05 [facility] Comment on above: Performed By: #### S TAPH #### [facility] [address] [place] [address] GFR/1.73 sq M.predicted among non-blacks MDRD (S/P/Bld) [Vol rate/Area] 55 mL/min/{1.73_m2} Abnormal >90 [facility] Comment on above: Result Comment: CALC ULATIONS OF ESTIMATED GFR ARE PERFORMED USING THE 2020 CKD-EPI STUDY REFIT EQUATION WITHOUT THE RACE VARIABLE FOR THE IDMS-TRACEABLE CREATININE METHODS. https://jasn.asnjournals.org/content/early//ASN.51195 07011 Performed By: #### S TAPH #### [facility] [address] [place] [address] Glucose [Mass/Vol] 89 mg/dL Normal 74 - 99 [facility] Comment on above: Performed By: #### S TAP #### [facility] [address] [place] [address] HCO3 (Bld) [Moles/Vol] 22 mmol/L Normal 21 - 32 [facility] Comment on above: Performed By: #### S TAP #### [facility] [address] [place] [address] Phosphate [Mass/Vol] 2.7 mg/dL Normal 2.5 - 4.9 [facility] Comment on above: Result Comment: The performance characteristics of phosphorus testing in heparinized plasma have been validated by the individual laboratory site where testing is performed. Testing on heparinized plasma is not approved by the FDA; however, such approval is not necessary. Performed By: #### S TAP #### [facility] [address] [place] [address] Potassium [Moles/Vol] 4.2 mmol/L Normal 3.5 - 5.3 [facility] Comment on above: Performed By: #### S TAP #### [facility] [address] [place] [address] Sodium [Moles/Vol] 138 mmol/L Normal 136 - 145 [facility] Comment on above: Performed By: #### S TAP #### [facility] [address] [place] [address] Urea nitrogen [Mass/Vol] 18 mg/dL Normal 6 - 23 [facility] Comment on above: Performed By: #### S TAP #### [facility] [address] [place] [address] Renal Function Panelon 07-23 Albumin BCP dye [Mass/Vol] 2.4 g/dL below low threshold 3.4 - 5.0 [facility] Work Phone: Anion gap [Moles/Vol] 9 mmol/L below low threshold 10 - 20 [facility]berto-[facility] Work Phone: Calcium [Mass/Vol] 7.7 mg/dL below low threshold 8.6 - 10.6 [facility] Work Phone: [phone] Chloride [Moles/Vol] 111 mmol/L above high threshold 98 - 107 [facility]urosur humberto-[facility] Work Phone: [phone] CO2 [Moles/Vol] 22 mmol/L 21 - 32 [facility]Neuros ur humberto-[facility] Work Phone: [phone] Creatinine [Mass/Vol] 1.19 mg/dL above high threshold See Below [facility]Neurosur humberto-[facility] Work Phone: [phone] Comment on above: Reference Range: 0.5 0 - 1.05 Glucose [Mass/Vol] 89 mg/dL 74 - 99 MG-Alejandrina rosur [facility] Work Phone: [phone] Phosphate [Mass/Vol] 2.7 mg/dL 2.5 - 4.9 MG-N eurosur [facility] Work Phone: [phone] Comment on above: The performance john acteristics of phosphorus testing in heparinized plasma have been validated by the individual laboratory site where testing is performed. Testing on heparinized plasma is not approved by the FDA; however, such approval is not necessary. Potassium [Moles/Vol] 4.2 mmol/L 3.5 - 5.3 MG- Neurosur humberto-[facility] Work Phone: [phone] Sodium [Moles/Vol] 138 mmol/L 136 - 145 MG-Alejandrina rosur [facility] Work Phone: [phone] Urea nitrogen [Mass/Vol] 18 mg/dL 6 - 23 [facility]Neuro[facility] Work Phone: [phone] Renal Function Panel 55 {mL/min/1.73m2} Abnormal >90 [facility]Neurosur humberto-[facility] Work Phone: Comment on above: CALCULATIONS OF JAGRUTI MATED GFR ARE PERFORMED USING THE 2020 CKD-EPI STUDY REFIT EQUATION WITHOUT THE RACE VARIABLE FOR THE IDMS-TRACEABLE CREATININE METHODS.https://jasn.asnjournals.org/content//A SN.2615962217 BN SPINE, LUMBOSACRAL; 2 OR 3 VIEWSon 07-22-2021 BN SPINE, LUMBOSACRAL; 2 OR 3 VIEWS Patient Name: DEANA CROFT STUDY: SPINE, LUMBOSACRAL; 2 OR 3 VIEWS; ; 07/22/2021 10:57 am INDICATION: Baseline . COMPARISON: Lumbar spine radiographs 07/26/2018. ACCESSION NUMBER(S): [id number] ORDERING CLINICIAN: BEN DENISE FINDINGS: Frontal and [...] Electronically signed by: WALE BREEN MD Normal [facility] CBC AND DIFFERENTIALon 07-22 % AUTOMATED IMMATURE GRAN 0.6 % Normal 0.0 - 0.9 [facility] Comment on above: Result Comment: Fernanda ture Granulocyte Count (IG) includes promyelocytes, myelocytes and metamyelocytes but does not include bands. Percent differential counts (%) should be interpreted in the context of the absolute cell counts (cells/L). Performed By: #### C OVSC #### [facility] [address] [place] [address] Basophils (Bld) [#/Vol] 0.02 10*3/uL Normal 0.00 - 0.10 [facility] Comment on above: Performed By: #### C OVSC #### [facility] [address] [place] [address] Basophils/100 WBC (Bld) 0.2 % Normal 0.0 - 2.0 [facility] Comment on above: Performed By: #### C OVSC #### [facility] [address] [place] [address] Eosinophils (Bld) [#/Vol] 0.02 10*3/uL Normal 0.00 - 0.70 [facility] Comment on above: Performed By: #### C OVSC #### [facility] [address] [place] [address] Eosinophils/100 WBC (Bld) 0.2 % Normal 0.0 - 6.0 [facility] Comment on above: Performed By: #### C OVSC #### [facility] [address] [place] [address] Erythrocyte distribution width (RBC) [Ratio] 17.4 % High 11.5 - 14.5 [facility] Comment on above: Performed By: #### C OVSC #### [facility] [address] [place] [address] Hematocrit (Bld) [Volume fraction] 28.1 % Low 36.0 - 46.0 [facility] Comment on above: Performed By: #### C OVSC #### [facility] [address] [place] [address] Hemoglobin (Bld) [Mass/Vol] 8.7 g/dL Low 12.0 - 16.0 [facility] Comment on above: Performed By: #### C OVSC #### [facility] [address] [place] [address] Lymphocytes (Bld) [#/Vol] 2.30 10*3/uL Normal 1.20 - 4.80 [facility] Comment on above: Performed By: #### C OVSC #### [facility] [address] [place] [address] Lymphocytes/100 WBC (Bld) 28.2 % Normal 13.0 - 44.0 [facility] Comment on above: Performed By: #### C OVSC #### [facility] [address] [place] [address] MCHC (RBC) [Mass/Vol] 31.0 g/dL Low 32.0 - 36.0 [facility] Comment on above: Performed By: #### C OVSC #### [facility] [address] [place] [address] MCV (RBC) [Entitic vol] 84 fL Normal 80 - 100 [facility] Comment on above: Performed By: #### C OVSC #### [facility] [address] [place] [address] Monocytes (Bld) [#/Vol] 0.43 10*3/uL Normal 0.10 - 1.00 [facility] Comment on above: Performed By: #### C OVSC #### [facility] [address] [place] [address] Monocytes/100 WBC (Bld) 5.3 % Normal 2.0 - 10.0 [facility] Comment on above: Performed By: #### C OVSC #### [facility] [address] [place] [address] Neutrophils (Bld) [#/Vol] 5.34 10*3/uL Normal 1.20 - 7.70 [facility] Comment on above: Performed By: #### C OVSC #### [facility] [address] [place] [address] Neutrophils/100 WBC (Bld) 65.5 % Normal 40.0 - 80.0 [facility] Comment on above: Performed By: #### C OVSC #### [facility] [address] [place] [address] NUCLEATED RBC 0.0 /100 WBC Normal 0.0-0.0 [facility] Comment on above: Performed By: #### C OVSC #### [facility] [address] [place] [address] Platelets (Bld) [#/Vol] 339 10*3/uL Normal 150 - 450 [facility] Comment on above: Performed By: #### C OVSC #### [facility] [address] [place] [address] RBC 3.34 x10E12/L Low 4.00 - 5.20 [facility] Comment on above: Performed By: #### C OVSC #### [facility] [address] [place] [address] WBC (Bld) [#/Vol] 8.2 10*3/uL Normal 4.4 - 11.3 [facility] Comment on above: Performed By: #### C OVSC #### [facility] [address] [place] [address] COAGULATION SCREENon 022 aPTT Coag (Bld) [Time] 37 s Normal 26 - 39 [facility] Comment on above: Result Comment: Note new reference range as of 04/01/2021 at 10:00am. Performed By: #### S TAPH #### [facility] [address] [place] [address] PT Coag (PPP) [Time] 12.9 s Normal 9.8 - 13.4 [facility] Comment on above: Result Comment: Note new reference range as of 04/01/2021 at 10:00am. Performed By: #### S TAPH #### [facility] [address] [place] [address] PT, INR 1.1 Normal 0.9 - 1.1 [facility] Comment on above: Performed By: #### S TAPH #### [facility] [address] 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 Lumbar Spinal Stenosis with Neurogenic Claudication - POD 1 from a L3-5 fusion, L4/5 laminectomy, L4 kyphoplasty. 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 scheduled acetaminophen 650 mg PO [...] surgery. Receives IV Iron infusion through her tetryl nitrator operator, Dr. Kvng Lester. (Baseline Hgb ~ 10.0 [...] plan of care. Electronic Signatures: Dilcia Mendoza (GREENS KEEPER-EVENTS SPECIALIST) (Signed 22-Jul-2021 11:02) Authored: Clinical Event Note Last Updated: 22-Jul-2021 11:02 by Dilcia Mendoza (GREENS KEEPER-EVENTS SPECIALIST) Normal [facility] Complete Blood Count + Diffe rentialon 07-22-2021 [...] % See Below [facility]Neurosur humberto[facility] Work Phone: [phone] Comment on above: Reference Range: 40. 0 - 80.0 Platelets (Bld) [#/Vol] 339 10*3/uL 150 - 450 [facility]Neurosur humberto-[facility] Work Phone: [phone] RBC (Bld) [#/Vol] 3.34 {x10E12/L} below low threshold See Below [facility]-Neurosur humberto-[facility] Work Phone: [phone] Comment on above: Reference Range: 4.0 0 - 5.20 WBC (Bld) [#/Vol] 8.2 10*3/uL 4.4 - 11.3 MG-Alejandrina rosur [facility] Work Phone: [phone] Complete Blood Count + Differential 0.02 {x10E9/L} See Below MG-Neurosur humberto-[facility] Work Phone: [phone] Comment on above: Reference Range: 0.0 0 - 0.10 Reference Range: 0.0 0 - 0.70 Complete Blood Count + Differential 0.43 {x10E9/L} See Below MG-Neurosur hum[facility]to[facility] Work Phone: [phone] Comment on above: Reference Range: 0.1 0 - 1.00 Complete Blood Count + Differential 2.30 {x10E9/L} See Below [facility]-Neurosur hum[facility]to[facility] Work Phone: [phone] Comment on above: Reference Range: 1.2 0 - 4.80 Complete Blood Count + Differential 5.34 {x10E9/L} See Below MG-Neurosur humberto[facility] Work Phone: [phone] Comment on above: Reference Range: 1.2 0 - 7.70 Complete Blood Count + Differential 0.2 % 0.0 - 6.0 [facility]-Neurosur hum[facility]to[facility] Work Phone: [phone] Complete Blood Count + Differential 0.6 % 0.0 - 0.9 [facility]-Neurosur [facility]to[facility] Work Phone: Comment on above: Immature Granulocyte Count (IG) includes promyelocytes, myelocytes and metamyelocytes but does not include bands. Percent differential counts (%) should be interpreted in the context of the absolute cell counts (cells/L). Complete Blood Count + Differential 0.0 {/100_WBC} 0.0-0.0 MG-Farooq paul-[facility] Work Phone: Daily Progress Note-Farooq zimmerman 07-22-2021 Daily Progress Note-Neurosurgery Service: Neurosurgery Subjective Data: DEANA CROFT is a 50 year old Female who is Hospital Day # 2 and POD #1 for 1. L3/5 posterior instrumented fusion;2. L4/5 laminectomy;3. L4 open kyphoplasty;5. neuronavigation. Objective Data: Objective Information: T PRBPMAPSpO2 [id number]/5895% Date/Time07/22 0: 0: 0: 0: 0:21 Range(36.3C [...] Recent Arterial Blood Gas Results 07/21/2021 15:02 [id number] 24 h range: ( 185 - 204 ) pH7.38 24 h range: ( 7.26 - 7.38 ) [id number] 24 h range: ( 34 - 40 [...] the note. I personally evaluated the patient [id number] Electronic Signatures: Bong Skinner (Resident)) (Signed 22-Jul-2021 05:08) Authored: Service, Subjective Data, Objective Data, Assessment and Plan, Note Completion Tri Awad) (Signed 24-Jul-2021 16:57) Authored: Note Completion Co-Signer: Service, Subjective Data, Objective Data, Assessment and Plan, Note Completion Last Updated: 24-Jul-2021 16:57 by Tri Awad) 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 Do NOT bend at waist or twist. 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 Wound Care: Inspect your incision daily [...] around the (more content not included)... Normal [facility] Laboratory - Coagulationon 0 - aPTT Coag (PPP) [Time] 37 s 26 - 39 MG -Neurosur [facility] Work Phone: Comment on above: Note new reference jaye welch as of 04/01/2021 at 10:00am. INR Coag (PPP) [Relative time] 1.1 {INR} 0.9 - 1.1 MG-Neurosur [facility] Work Phone: PT Coag (PPP) [Time] 12.9 s 9.8 - 13.4 [facility] Work Phone: Comment on above: Note new reference jaye welch as of 04/01/2021 at 10:00am. MAGNESIUMon 07-22-2021 Magnesium [Mass/Vol] 1.69 mg/dL Normal 1.60 - 2.40 [facility] Comment on above: Performed By: #### M G #### [facility] [address] [place] [address] Magnesium, Serumon Magnesium [Mass/Vol] 1.69 mg/dL See Below MG-N nevaehr humberto-[facility] Work Phone: Comment on above: Reference Range: 1.6 0 - 2.40 OT Evaluation v2-individual therapy - S/OT under direct supeon 07-22-2021 OT Evaluation v2-individual therapy - S/OT under direct supe Rehab: Info: Mode of Treatmentindividual therapy; occupational therapy; S/OT under direct supervision of OT. Time IN09:26 Time OUT09:55 Total Treatment [id number] Patient in ... at end of sessionchair; alarm on Communicated with ... 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 with [...] TubesIV; woundvac Vision/Cognition: Visual Impairment/LimitationsWFL; corrective lenses time checker Affect/Mental Status (Cognitive)WFL; Slightly anxious about going [...] sit to supine; Able to perform log-roll Rvkmvu-uq-Oaj [place] (Bed Mobility)contact guard Hjr-go-Pmmqje [place] (Bed Mobility)contact guard Transfer Assessment/Interventionssit to stand transfer; stand to sit transfer; bed to chair transfer Bed-Chair [place] (Transfers)standby assist Bed-Chair Assistive Device (Transfers)No device Sit-Stand [place] (Transfers)standby assist Sit-Stand Assistive Device (Transfers)No device Stand-Sit [place] (Transfers)standby assist Stand-Sit Assistive Device (Transfers)No device Impairments Impacting Function (Mobility)balance; endurance/activity tolerance; pain; range of motion; strength ADL: BADL Assessment/Interventionlowe r body dressing Geneva Level (Lower Body Dressing)don; pants/bottoms; standby assist Position (Lower Body Dressing)long sitting Impairments, BADL Safety/Performanceendurance /activity tolerance; balance; pain; range of motion; strength Motor: Sitting, Static (Balance)good balance Sitting, Dynamic (Balance)good balance Ygt-sp-Qjgnh (Balance)fair balance Standing, Static (Balance)good balance Standing, [...] days F (more content not included)... Normal [facility] PT Evaluation v2-individual therapyon 07-22-2021 PT Evaluation v2-individual therapy Rehab: Info: Mode of Treatmentindividual therapy; physical therapy Time IN12:26 Time OUT12:34 Total Treatment Minutes8 Patient in ... 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 [...] TubesIV; woundvac Vision/Cognition: Visual Impairment/LimitationsWFL; corrective lenses time checker Affect/Mental Status (Cognitive)WFL Orientation Status (Cognition)oriented x [...] stand transfer; stand to sit transfer Sit-Stand Geneva (Transfers)standby assist Sit-Stand Assistive Device (Transfers)No device Stand-Sit [place] (Transfers)standby assist Stand-Sit Assistive Device (Transfers)No device Gait/Stairs Locomotiongait/ambulation independence; gait/ambulation assistive device; distance ambulated; gait deviations; stairs negotiation Gait Locomotion (Gait)standby assist; 1 person assist Assistive Device (Gait Training)no device Distance in Feet (Gait Training)150ft Gait Deviations Identified (Gait)decreased maurice Stairs Negotiation (Stairs)stairs activity; number of stairs; handrail location; stairs assistive device Geneva Level (Stairs Training)standby assist; 1 person assist; [...] Eval)good, to (more content not included)... Normal [facility] RENAL FUNCTION PANELon 07-22 Albumin [Mass/Vol] 2.4 g/dL Low 3.4 - 5.0 [facility] Comment on above: Performed By: #### C OAGS #### [facility] [address] [place] [address] Anion gap [Moles/Vol] 13 mmol/L Normal - 20 [facility] Comment on above: Performed By: #### C OAGS #### [facility] [address] [place] [address] Calcium [Mass/Vol] 8.1 mg/dL Low 8.6 - 10.6 [facility] Comment on above: Performed By: #### C OAGS #### [place] [address] [place] [address] Chloride [Moles/Vol] 110 mmol/L High 98 - 107 [facility] Comment on above: Performed By: #### C OAGS #### [facility] [address] [place] [address] Creatinine [Mass/Vol] 0.98 mg/dL Normal 0.50 - 1.05 [facility] Comment on above: Performed By: #### C OAGS #### [place] [address] [place] [address] GFR/1.73 sq M.predicted among non-blacks MDRD (S/P/Bld) [Vol rate/Area] 70 mL/min/{1.73_m2} Normal >90 [facility] Comment on above: Result Comment: CALC ULATIONS OF ESTIMATED GFR ARE PERFORMED USING THE 2020 CKD-EPI STUDY REFIT EQUATION WITHOUT THE RACE VARIABLE FOR THE IDMS-TRACEABLE CREATININE METHODS. https://jasn.asnjournals.org/content/early/ASN.97412 06525 Performed By: #### C OAGS #### [facility] [address] [place] [address] Glucose [Mass/Vol] 89 mg/dL Normal 74 - 99 [facility] Comment on above: Performed By: #### C OAGS #### [facility] [address] [place] [address] HCO3 (Bld) [Moles/Vol] 19 mmol/L Low 21 - 32 [facility] Comment on above: Performed By: #### C OAGS #### [facility] [address] [place] [address] Phosphate [Mass/Vol] 3.2 mg/dL Normal 2.5 - 4.9 [facility] Comment on above: Result Comment: The performance characteristics of phosphorus testing in heparinized plasma have been validated by the individual laboratory site where testing is performed. Testing on heparinized plasma is not approved by the FDA; however, such approval is not necessary. Performed By: #### C OAGS #### [facility] [address] [place] [address] Potassium [Moles/Vol] 4.7 mmol/L Normal 3.5 - 5.3 [facility] Comment on above: Performed By: #### C OAGS #### [facility] [address] [place] [address] Sodium [Moles/Vol] 137 mmol/L Normal 136 - 145 [facility] Comment on above: Performed By: #### C OAGS #### [facility] [address] [place] [address] Urea nitrogen [Mass/Vol] 17 mg/dL Normal 6 - 23 [facility] Comment on above: Performed By: #### C OAGS #### [facility] [address] [place] [address] Radiologyon 07-22-2021 XR Lumbar spine AP and Lateral Normal [facility] Work Phone: Renal Function Panelon 07-22 Albumin BCP dye [Mass/Vol] 2.4 g/dL below low threshold 3.4 - 5.0 MG[facility]sur [facility]to[facility] Work Phone: Anion gap [Moles/Vol] 13 mmol/L [...] 89 mg/dL 74 - 99 MG-Alejandrina rosur [facility] Work Phone: Phosphate [Mass/Vol] 3.2 mg/dL 2.5 - 4.9 MG-N eurosur [facility] Work Phone: Comment on above: The performance john acteristics of phosphorus testing in heparinized plasma have been validated by the individual laboratory site where testing is performed. Testing on heparinized plasma is not approved by the FDA; however, such approval is not necessary. Potassium [Moles/Vol] 4.7 mmol/L 3.5 - 5.3 MG- Neurosur [facility] Work Phone: Sodium [Moles/Vol] 137 mmol/L 136 - 145 MG-Alejandrina rosur [facility] Work Phone: Urea nitrogen [Mass/Vol] 17 mg/dL 6 - 23 MG-Neurosur [facility] Work Phone: Renal Function Panel 70 {mL/min/1.73m2} >90 MG-Neurosur [facility] Work Phone: Comment on above: CALCULATIONS OF JAGRUTI MATED GFR ARE PERFORMED USING THE 2020 CKD-EPI STUDY REFIT EQUATION WITHOUT THE RACE VARIABLE FOR THE IDMS-TRACEABLE CREATININE METHODS.https://jasn.asnjournals.org/content//A SN.9311423452 ARTERIAL FULL PANELon 2021 Anion gap [Moles/Vol] 8 mmol/L Low 10 - 25 [facility] Comment on above: Performed By: #### C OVSC #### [facility] [address] [place] [address] BASE EXCESS-BLOOD -4.5 mmol/L Low -2.0 - 3.0 [facility] Comment on above: Performed By: #### C OVSC #### [facility] [address] [place] [address] BICARB, CALCULATED 20.1 mmol/L Low 22.0 - 26.0 [facility] Comment on above: Performed By: #### C OVSC #### [facility] [address] [place] [address] CALCIUM,IONIZED 1.19 mmol/L Normal 1.10 - 1.33 [facility] Comment on above: Performed By: #### C OVSC #### [facility] [address] [place] [address] Chloride [Moles/Vol] 113 mmol/L High 98 - 107 [facility] Comment on above: Performed By: #### C OVSC #### [facility] [address] [place] [address] Glucose [Mass/Vol] 118 mg/dL High 74 - 99 [facility] Comment on above: Performed By: #### C OVSC #### [facility] [address] [place] [address] Hematocrit (Bld) [Volume fraction] 27.0 % Low 36.0 - 46.0 [facility] Comment on above: Performed By: #### C OVSC #### [facility] [address] [place] [address] Hemoglobin (Bld) [Mass/Vol] 9.0 g/dL Low 12.0 - 16.0 [facility] Comment on above: Performed By: #### C OVSC #### [facility] [address] [place] [address] Lactate [Moles/Vol] 0.5 mmol/L Normal 0.4 - 2.0 [facility] Comment on above: Performed By: #### C OVSC #### [facility] [address] [place] [address] OXY HGB 89.8 % Low 94.0 - 98.0 [facility] Comment on above: Performed By: #### C OVSC #### [facility] [address] [place] [address] Oxygen (Bld) [Partial pressure] 194 mm[Hg] High 85 - 95 [facility] Comment on above: Performed By: #### C OVSC #### [facility] [address] [place] [address] PATIENT TEMPERATURE 37.0 degrees C Normal [facility] Comment on above: Result Comment: NOTE : PATIENT RESULTS ARE NOT CORRECTED FOR TEMPERATURE. Performed By: #### C OVSC #### [place] [address] [place] [address] PCO2 34 mmHg Low 38 - 42 [facility] Comment on above: Performed By: #### C OVSC #### [place] [address] [place] [address] pH (Bld) 7.38 [pH] Normal 7.38 - 7.42 [facility] Comment on above: Performed By: #### C OVSC #### [facility] [address] [place] [address] Potassium [Moles/Vol] 4.7 mmol/L Normal 3.5 - 5.3 [facility] Comment on above: Performed By: #### C OVSC #### [facility] [address] [place] [address] SO2 95 % Normal 94 - 100 [facility] Comment on above: Performed By: #### C OVSC #### [facility] [address] [place] [address] Sodium [Moles/Vol] 136 mmol/L Normal 136 - 145 [facility] Comment on above: Performed By: #### C OVSC #### [facility] [address] [place] [address] Anion gap [Moles/Vol] 11 mmol/L Normal 10 - 25 [facility] Comment on above: Performed By: #### S TAPH #### [facility] [address] [place] [address] BASE EXCESS-BLOOD -8.5 mmol/L Low -2.0 - 3.0 [facility] Comment on above: Performed By: #### S TAPH #### [facility] [address] [place] [address] BICARB, CALCULATED 17.9 mmol/L Low 22.0 - 26.0 [facility] Comment on above: Performed By: #### S TAPH #### [facility] [address] [place] [address] CALCIUM,IONIZED 1.23 mmol/L Normal 1.10 - 1.33 [facility] Comment on above: Performed By: #### S TAPH #### [facility] [address] [place] [address] Chloride [Moles/Vol] 112 mmol/L High 98 - 107 [facility] Comment on above: Performed By: #### S TAPH #### [facility] [address] [place] [address] Glucose [Mass/Vol] 108 mg/dL High 74 - 99 [facility] Comment on above: Performed By: #### S TAPH #### [facility] [address] [place] [address] Hematocrit (Bld) [Volume fraction] 23.0 % Low 36.0 - 46.0 [facility] Comment on above: Performed By: #### S TAPH #### [facility] [address] [place] [address] Hemoglobin (Bld) [Mass/Vol] 7.7 g/dL Low 12.0 - 16.0 [facility] Comment on above: Performed By: #### S TAPH #### [facility] [address] [place] [address] Lactate [Moles/Vol] 0.5 mmol/L Normal 0.4 - 2.0 [facility] Comment on above: Performed By: #### S TAPH #### [facility] [address] [place] [address] OXY HGB 93.8 % Low 94.0 - 98.0 [facility] Comment on above: Performed By: #### S TAPH #### [facility] [address] [place] [address] Oxygen (Bld) [Partial pressure] 185 mm[Hg] High 85 - 95 [facility] Comment on above: Performed By: #### S TAPH #### [facility] [address] [place] [address] PATIENT TEMPERATURE 37.0 degrees C Normal [facility] Comment on above: Result Comment: NOTE : PATIENT RESULTS ARE NOT CORRECTED FOR TEMPERATURE. Performed By: #### S TAPH #### [facility] [address] [place] [address] PCO2 40 mmHg Normal 38 - 42 [facility] Comment on above: Performed By: #### S TAPH #### [facility] [address] [place] [address] pH (Bld) 7.26 [pH] Low 7.38 - 7.42 [facility] Comment on above: Performed By: #### S TAPH #### [facility] [address] [place] [address] Potassium [Moles/Vol] 4.5 mmol/L Normal 3.5 - 5.3 [facility] Comment on above: Performed By: #### S TAPH #### [facility] [address] [place] [address] SO2 96 % Normal 94 - 100 [facility] Comment on above: Performed By: #### S TAPH #### [facility] [address] [place] [address] Sodium [Moles/Vol] 136 mmol/L Normal 136 - 145 [facility] Comment on above: Performed By: #### S TAPH #### [facility] [address] [place] [address] Anion gap [Moles/Vol] 12 mmol/L Normal 10 - 25 [facility] Comment on above: Performed By: #### C BCDF #### [facility] [address] [place] [address] BASE EXCESS-BLOOD -8.4 mmol/L Low -2.0 - 3.0 [facility] Comment on above: Performed By: #### C BCDF #### [facility] [address] [place] [address] BICARB, CALCULATED 17.2 mmol/L Low 22.0 - 26.0 [facility] Comment on above: Performed By: #### C BCDF #### [facility] [address] [place] [address] CALCIUM,IONIZED 1.20 mmol/L Normal 1.10 - 1.33 [facility] Comment on above: Performed By: #### C BCDF #### [facility] [address] [place] [address] Chloride [Moles/Vol] 112 mmol/L High 98 - 107 [facility] Comment on above: Performed By: #### C BCDF #### [facility] [address] [place] [address] Glucose [Mass/Vol] 89 mg/dL Normal 74 - 99 [facility] Comment on above: Performed By: #### C BCDF #### [facility] [address] [place] [address] Hematocrit (Bld) [Volume fraction] 28.0 % Low 36.0 - 46.0 [facility] Comment on above: Performed By: #### C BCDF #### [facility] [address] [place] [address] Hemoglobin (Bld) [Mass/Vol] 9.3 g/dL Low 12.0 - 16.0 [facility] Comment on above: Performed By: #### C BCDF #### [facility] [address] [place] [address] Lactate [Moles/Vol] 0.3 mmol/L Low 0.4 - 2.0 [facility] Comment on above: Performed By: #### C BCDF #### [facility] [address] [place] [address] OXY HGB 91.4 % Low 94.0 - 98.0 [facility] Comment on above: Performed By: #### C BCDF #### [facility] [address] [place] [address] Oxygen (Bld) [Partial pressure] 204 mm[Hg] High 85 - 95 [facility] Comment on above: Performed By: #### C BCDF #### [facility] [address] [place] [address] PATIENT TEMPERATURE 37.0 degrees C Normal [facility] Comment on above: Result Comment: NOTE : PATIENT RESULTS ARE NOT CORRECTED FOR TEMPERATURE. Performed By: #### C BCDF #### [facility] [address] [place] [address] PCO2 35 mmHg Low 38 - 42 [facility] Comment on above: Performed By: #### C BCDF #### [place] [address] [place] [address] pH (Bld) 7.30 [pH] Low 7.38 - 7.42 [facility] Comment on above: Performed By: #### C BCDF #### [facility] [address] [place] [address] Potassium [Moles/Vol] 3.9 mmol/L Normal 3.5 - 5.3 [facility] Comment on above: Performed By: #### C BCDF #### [facility] [address] [place] [address] SO2 95 % Normal 94 - 100 [facility] Comment on above: Performed By: #### C BCDF #### [facility] [address] [place] [address] Sodium [Moles/Vol] 137 mmol/L Normal 136 - 145 [facility] Comment on above: Performed By: #### C BCDF #### [facility] [address] [place] [address] Admission Risk Screen - Adul ton 07-21-2021 [...] AlertFor Ebola-like Symptoms: Isolate Patient and Notify Provider/Health Care Manager For Contact: Notify Provider/Health Care Manager Advance Directive: Advance Directive/DNRno Advance Directive Information [...] demonstration; verbal instruction Cultural Considerationsnone Developmental Considerationsnone Scientology Considerationsnone Learning Assessment (Other Learner): Other learner availableno Depression Screen: During the past month, have you often been bothered by feeling down, depressed or hopelessno During the past month, have you often had little interest or pleasure in doing thingsno Have you had any thoughts of harming anyone elseno Clayton Suicide: Risk Screen Not Applicable/Able to Answerable to be screened In the Past Month: Have you wished you were or could go to sleep and not wake upno(1) In the Past Month: Have you had any actual thoughts of killing yourself no(1) Lifetime: Have you ever done, started to do, or prepared to do anything to end your lifeno(1) Clayton Suicide Risknegative Adult Nutrition Screen: Have you [...] Spiritual Screen: Are there any cultural, spiritual, amish practices/values/needs that are important for us to knowno CAGE: Is this an injured patient at a Trauma Center ([facility]/[place]): no Vaccinations: Vaccination - Influenza Vaccination Screen: Is it flu season (between and July 31)Yes Screening for identified contraindications to influenza vaccinationpatient already received vaccine this season Vaccination - Pneumonia Vaccination Screen: Patient has received a previous pneumonia vaccine:no/unknown... Immunocompetent persons with under (more content not included)... Normal [facility] CBCon 07-21-2021 Erythrocyte distribution width (RBC) [Ratio] 17.2 % High 11.5 - 14.5 [facility] Comment on above: Performed By: #### C BC #### [facility] [address] [place] [address] Hematocrit (Bld) [Volume fraction] 30.3 % Low 36.0 - 46.0 [facility] Comment on above: Performed By: #### C BC #### [facility] [address] [place] [address] Hemoglobin (Bld) [Mass/Vol] 8.8 g/dL Low 12.0 - 16.0 [facility] Comment on above: Performed By: #### C BC #### [facility] [address] [place] [address] MCHC (RBC) [Mass/Vol] 29.0 g/dL Low 32.0 - 36.0 [facility] Comment on above: Performed By: #### C BC #### [facility] [address] [place] [address] MCV (RBC) [Entitic vol] 89 fL Normal 80 - 100 [facility] Comment on above: Performed By: #### C BC #### [facility] [address] [place] [address] NUCLEATED RBC 0.0 /100 WBC Normal 0.0-0.0 [facility] Comment on above: Performed By: #### C BC #### [facility] [address] [place] [address] Platelets (Bld) [#/Vol] 303 10*3/uL Normal 150 - 450 [facility] Comment on above: Performed By: #### C BC #### [facility] [address] [place] [address] RBC 3.41 x10E12/L Low 4.00 - 5.20 [facility] Comment on above: Performed By: #### C BC #### [facility] [address] [place] [address] WBC (Bld) [#/Vol] 8.2 10*3/uL Normal 4.4 - 11.3 [facility] Comment on above: Performed By: #### C BC #### [facility] [address] [place] [address] Clinical Event Note-Neurosur humberto Post-operative Plan of [...] JAYDA drains x2 uprights in AM (ordered) EDITORIAL MANAGER/Watson PTOT Preop exam: BUE/BLE 5/5 Postop exam: BUE/BLE 5/5 Electronic Signatures: Ben Denise (Resident)) (Signed 21-Jul-2021 16:27) Authored: Clinical Event Note Last Updated: 21-Jul-2021 16:27 by Ben Denise ( (Resident)) Normal [facility] Laboratory - Blood bankon ABO group Nom (Bld) Canceled [facility] Work Phone: Blood group antibody screen Ql [...] 0.4 - 2.0 [facility] Work Phone: [phone] Oxygen (Bld) [Partial pressure] 194 mm[Hg] above high threshold 85 - 95 [facility] Work Phone: [phone] Oxyhemoglobin (BldA) [Mass fraction] 89.8 % below low threshold See Below [facility] Work Phone: [phone] Comment on above: Reference Range: 94. 0 - 98.0 pH (Bld) 7.38 [pH] See Below [facility] Work Phone: [phone] Comment on above: Reference Range: 7.3 8 - 7.42 Potassium (BldA) [Moles/Vol] 4.7 mmol/L 3.5 - 5.3 [facility] Work Phone: [phone] Sodium (BldA) [Moles/Vol] 136 mmol/L 136 - 145 [facility] Work Phone: [phone] Anion gap 4 (BldA) [Moles/Vol] 11 mmol/L 10 - 25 [facility] Work Phone: [phone] Base excess Calc (Bld) [Moles/Vol] -8.5000 mmol/L below low threshold -2.0 - 3.0 [facility] Work Phone: [phone] Calcium.ionized (BldA) [Moles/Vol] 1.23 mmol/L See Below [facility] Work Phone: Comment on above: Reference Range: 1.1 0 - 1.33 Chloride (BldA) [Moles/Vol] 112 mmol/L above high threshold 98 - 107 [facility] Work Phone: [phone] CO2 (Bld) [Partial pressure] 40 mm[Hg] 38 - 42 [facility] Work Phone: [phone] Glucose [Mass/Vol] 108 mg/dL above high threshold 74 - 99 [facility] Work Phone: [phone] HCO3 (Bld) [Moles/Vol] 17.9 mmol/L below low threshold See Below [facility] Work Phone: [phone] Comment on above: Reference Range: 22. 0 - 26.0 Lactate (BldA) [Moles/Vol] 0.5 mmol/L 0.4 - 2.0 [facility] Work Phone: [phone] Oxygen (Bld) [Partial pressure] 185 mm[Hg] above high threshold 85 - 95 [facility] Work Phone: [phone] Oxyhemoglobin (BldA) [Mass fraction] 93.8 % below low threshold See Below [facility] Work Phone: [phone] Comment on above: Reference Range: 94. 0 - 98.0 pH (Bld) 7.26 [pH] below low threshold See Below [facility] Work Phone: [phone] Comment on above: Reference Range: 7.3 8 - 7.42 Potassium (BldA) [Moles/Vol] 4.5 mmol/L 3.5 - 5.3 [facility] Work Phone: [phone] Sodium (BldA) [Moles/Vol] 136 mmol/L 136 - 145 [facility] Work Phone: [phone] Anion gap 4 (BldA) [Moles/Vol] 12 mmol/L 10 - 25 [facility] Work Phone: [phone] Base excess Calc (Bld) [Moles/Vol] -8.4000 mmol/L [...] 89 mg/dL 74 - 99 [facility]Alejandrina [facility] Work Phone: HCO3 (Bld) [Moles/Vol] 17.2 mmol/L below low threshold See Below [facility] Work Phone: Comment on above: Reference Range: 22. 0 - 26.0 Lactate (BldA) [Moles/Vol] 0.3 mmol/L below low threshold 0.4 - 2.0 [facility] Work Phone: Oxygen (Bld) [Partial pressure] 204 mm[Hg] above high threshold 85 - 95 [facility] Work Phone: Oxyhemoglobin (BldA) [Mass fraction] 91.4 [...] threshold See Below [facility] Work Phone: [phone] Comment on above: Reference Range: 36. 0 - 46.0 Hemoglobin (Bld) [Mass/Vol] 8.8 g/dL below low threshold See Below [facility] Work Phone: Comment on above: Reference Range: 12. 0 - 16.0 MCHC (RBC) [Mass/Vol] 29.0 g/dL below low threshold See Below [facility] Work Phone: [phone] Comment on above: Reference Range: 32. 0 [...] [facility] Work Phone: Operative Reports - [facility] [place] [place] [address] Patient Name: TAMMY. Jo-Ann CROFT : 1970 Date of Service: 07/21/2021 Patient Location: [facility] OR Patient Type: I Surgeon: Tri Awad MD Report Type: Operative Reports PREOPERATIVE DIAGNOSIS: Lumbar stenosis, neurogenic claudication, L4 vertebral hemangioma. POSTOPERATIVE DIAGNOSIS: Lumbar stenosis, neurogenic claudication, L4 vertebral hemangioma. OPERATION/PROCEDURE: L4 laminectomy L3-5 posterolateral arthrodesis with pedicle screw instrumentation L4 kyphoplasty SURGEON: Tri Awad MD BPO SPECIALIST(S): Ben Denise MD ANESTHESIA: general PROCEDURE DETAILS: [...] TT: 07/21/2021 06:03 PM EST DICTATION NUMBER: [id number] SPHERIS JOB NUMBER: [id number] CC: Tri Awad MD, Joey Daniel MD, Electronic Signatures: Tri Awad) (Signed on 24-Jul-2021 16:43) Authored Unsigned, Draft (SYS GENERATED) (Entered on 21-Jul-2021 18:03) Entered Last Updated: 24-Jul-2021 16:43 by Tri Awad) [facility] Order Reconciliationon 07-21 Order Reconciliation Page 1 Admission Reconciliation Document Reconciliation Type: Admission from OR requested on behalf of Dilcia Mendoza (Advanced Practice Nurse) done by Dilcia Mendoza ([facility]) Admission from OR - Reconciliation: 21-Jul-2021 16:56 by: Ben Denise (Resident)) Admission from OR - Reset to Incomplete: 22-Jul-2021 10:28 by: Dilcia Mendoza ([facility]) Admission from OR - Reconciliation: 22-Jul-2021 10:34 by: Dilica Mendoza ([facility]) Home MedicationsEnteredLast Dose TakenReconciled with current Order Reconciliation Comment/ Additional Information acetaminophen-hydrocodone 325 mg-5 mg oral tablet 1 tab(s) orally every 6 to 8 hours, As [id number] 2 Reviewed and Held amitriptyline 25 mg oral tablet 1 tab(s) oral once a [id number] UNKNOWN Amitriptyline Tablet (ELAVIL)DOSE = 25 mg Oral At Bedtime amitriptyline 25 mg oral tablet continued as the inpatient order Amitriptyline cholecalciferol 1250 mcg (50,000 intl units) oral capsule 1 cap(s) orally once a week on Reviewed and Held DULoxetine 30 mg oral delayed release capsule 1 tab(s) oral once a day at -[id number] 22 Reviewed and Held DULoxetine 60 mg oral delayed release capsule 1 tab(s) oral once a day in the [id number] 22 Reviewed and Held estradiol-norethindrone 1 mg-0.5 mg oral tablet 1 tab(s) oral once a day Reviewed and Held Lyrica 100 mg oral capsule 1 cap(s) oral 3 times a [id number] Pregabalin Capsule (LYRICA)DOSE = 100 mg Oral 3 Times a DayLyrica 100 mg oral capsule continued as the inpatient order Pregabalin multivitamin Multiple Vitamins oral tablet 1 tab(s) oral once a [id number]-Jul-2021 Multivitamin with Minerals TabletDOSE = 1 tablet(s) Oral Daily multivitamin Multiple Vitamins oral tablet reconciled with the existing inpatient order Multivitamin with Minerals Oyster Shell Calcium 500 (1250 mg calcium carbonate) oral tablet 3 tab(s) orally 2 times a [id number] Calcium Carbonate Chewable Tablet, Chewable (TUMS)DOSE = [...] of 4 mg regardless of dose. HYDROmorphone EDITORIAL MANAGER 25 mg/ NaCL 0.9% 50 mL (DILAUDID IV EDITORIAL MANAGER)DEMAND/ EDITORIAL MANAGER Dose = 0.2 mgDELAY/ Lockout Time Period [...] unarousable, and respiratory rate lessClinician Notes: HOLD EDITORIAL MANAGER Infusion and notify H.O. immediately Ondansetron Injectable (ZOFRAN)DOSE = 4 mg IntraVenous Push Every 6 Hours, PRN Nausea Ondansetron Injectab (more content not included)... Normal [facility] Patient Profile - Adult v2on 07-21-2021 Patient Profile - Adult v2 Profile: Initial Info: How to be Addressedtammy(1) Spoken Language PreferredEnglish (1) Source of Informationpatient Stated Reason for Admissionback surgery Primary Contact Name and NumberSandjuan (mom) [phone] Wants Family/Rep Notified of Admissionno Notify PCPnotify PCP Informed of Patient Visiting Rightsyes Limitations on Visitors/Phone Callsnone Arrived [place] Patient Belongingsremains with patient Patient Belongings Remaining with Patientcell phone/electronics; vision aids; clothing; purse/wallet Medications Brought to Hospitalno General Health: Blood Avoidance/Restrictionsnone( 1) Previous Transfusion Reactionno(1) Weight in kg88.7 kilogram(s)(2) Weight in vza077.5 pound(s) Weight Methodactual (measured) Scale Typebed Height [...] Arrangementshouse Services Anticipated at Transitionnone Anticipated Transition [facility] hospit[facility] Significant IndicatorsComplete Information Review: Allergies, Home Meds and Significant Events have been Reviewed and Verified with Patient/Familyyes ALLERGY, INTOLERANCE, ADVERSE EVENT: Allergies: No Known Allergies: Active Electronic Signatures: PIPPA MARTE (DORA) (Signed 21-Jul-2021 21:19) Authored: Initial Info, General Health, [facility] Based Care, Substance, Health Mgmt, Relationship/Environ, Additional Information Last Updated: 21-Jul-2021 21:19 by PIPPA MARTE (DORA) References: 1. Data Referenced From Patient Profile - Preop v3 21-Jul-2021 09:00 2. Data Referenced From 1. Vital Signs 21-Jul-2021 09:00 Normal [facility] Patient Profile - Preop v3on 07-21-2021 Patient Profile - Preop v3 Patient Profile - Preop: Initial Info: Patient DemographicsName: DEANA CROFT Date: 1970 Address: [address] [place] [address] Primary Phone [phone] How to be Addressedtammy Spoken Language PreferredEnglish Stated Reason for Admissionspine surgery Primary Contact Name and Numbermom and dad stephanie [phone] Medications Brought to Hospitalno General Health: Weight in kg88.7 kilogram(s) Weight in ybh970.5 pound(s) Weight Methodactual (measured) Scale Typestanding Height [...] other Living Arrangementshouse Resource/Environmental Concernsnone Anticipated Transition [facility] Services Anticipated at Transitionnone Tobacco Use: Tobacco Useno Pre-op Checklist: Arrival [id number] Procedure TypeL3-5 lami with/fusion kyphoplasty NPOyes Last Food [id number]-[id number] 00:00 Last Clear Fluid [id number]-[id number]-2643 00:00 ID Band On Patientpatient ID (name) [...] Update < 30 days 21-Jul-2021 00:00 Normal [facility] REQUEST-LEUKOREDUCED RED MARIA M LSon 07-21-2021 REQUEST-LEUKOREDUCED RED CELLS ORDER RECD Normal [facility] Comment on above: Performed By: #### C BCDF #### [facility] [address] [place] [address] TYPE + SCREENon 07-21-2021 ABO TYPE Canceled Normal [facility] Comment on above: Order Comment: TEST TYPE + SCREEN WAS CANCELLED, 07/21/2021 14:41 Accession error. Performed By: #### C OAGS #### [facility] [address] [place] [address] RH TYPE Canceled Normal [facility] Comment on above: Order Comment: TEST TYPE + SCREEN WAS CANCELLED, 07/21/2021 14:41 Accession error. Performed By: #### C OAGS #### [facility] [address] [place] [id number] TYPE + SCREENon 07-20-2021 ABO TYPE O Normal [facility] Comment on above: Performed By: #### S TAPH #### [facility] [address] [place] [address] RH TYPE Positive Normal [facility] Comment on above: Performed By: #### S TAPH #### [facility] [address] [place] [address] CORONAVIRUS 2019, SCREEN ASY MPTOMATICon 07-19-2021 SARS-CoV-2 (COVID-19) RNA LORIE+probe Ql (Unsp spec) Not detected Normal Not Detected [facility] Comment on above: Result Comment: . This [...] patient management decisions. Fact sheet for providers: https://www.fda.gov/media/978466/download Fact sheet for patients: https://www.fda.gov/media/949423/download This test has received FDA Emergency Use Authorization (EUA) and has been verified by [facility] ([facility]). This test is only authorized for the duration of time that circumstances exist to justify the authorization of the emergency use of in vitro diagnostic tests for the detection of SARS-CoV-2 virus and/or diagnosis of COVID-19 infection under section 564(b)(1) of the Act, 21 U.S.C. 360bbb-3(b)(1), unless the authorization is terminated or revoked sooner. [facility] is certified under CLIA-88 as qualified to perform high complexity testing. Testing is performed in the [facility] laboratories located at [id number] [place] [address]. Performed By: #### C OVSC #### [facility] [address] [place] [address] Lab Specimen Source Nasal, Nasopharyngeal Normal [facility] Comment on above: Performed By: #### C OVSC #### [facility] [address] [place] [address] Coronavirus 2019 RNA by PCR, Screening Asymptomticon 07-19-2021 Coronavirus 2019 RNA by PCR, Screening Asymptomtic Not detected Normal See Below [facility]Neurosur [facility]berto-[facility] Work Phone: Comment on above: SOURCE: Nasal, [...] make patient management decisions.Fact sheet for providers: https://www.fda.gov/media/006356/downloadFact sheet for patients: https://www.fda.gov/media/147186/downloadThis test has received FDA Emergency Use Authorization (EUA) and has been verified by [facility] ([facility]). This test is only authorized for the duration of time that circumstances exist to justify the authorization of the emergency use of in vitro diagnostic tests for the detection of SARS-CoV-2 virus and/or diagnosis of COVID-19 infection under section 564(b)(1) of the Act, 21 U.S.C. 360bbb-3(b)(1), unless the authorization is terminated or revoked sooner. [facility] is certified under CLIA-88 as qualified to perform high complexity testing. Testing is performed in the [facility] laboratories located at [address] [place] [address]. Covid 19 Resultson 2 SARS-CoV-2 (COVID-19) RNA [...] You may also be contacted by the [facility] to see if any of [...] or Naproxen (Aleve) can also be used. Jotw-oud-yufcast cough and cold medicines can be used according to the instructions on the package. Some eavb-mgh-fudeuiu medicines also contain acetaminophen. Make sure you [...] water are not available, use alcohol-based hand aviation engineer. Avoid touching your eyes, nose, and mouth [...] 24 desi (more content not included)... Normal [facility] Laboratory - Blood bankon ABO group Nom (Bld) O [facility]Ne [facility] Work Phone: Blood group antibody screen Ql Negative [facility] Work Phone: Rh immune globulin screen (Bld) [Interp] Positive [facility] Work Phone: BASIC METABOLIC PANELon 07-01 Anion gap [Moles/Vol] 16 mmol/L Normal 10 - 20 [facility] Comment on above: Performed By: #### S TAPH #### [facility] [address] [place] [address] Calcium [Mass/Vol] 8.3 mg/dL Low 8.6 - 10.6 [facility] Comment on above: Performed By: #### S TAPH #### [facility] [address] [place] [address] Chloride [Moles/Vol] 107 mmol/L Normal 98 - 107 [facility] Comment on above: Performed By: #### S TAPH #### [facility] [address] [place] [address] Creatinine [Mass/Vol] 1.06 mg/dL High 0.50 - 1.05 [facility] Comment on above: Performed By: #### S TAPH #### [facility] [address] [place] [address] GFR/1.73 sq M.predicted among non-blacks MDRD (S/P/Bld) [Vol rate/Area] 63 mL/min/{1.73_m2} Normal >90 [facility] Comment on above: Result Comment: CALC ULATIONS OF ESTIMATED GFR ARE PERFORMED USING THE 2020 CKD-EPI STUDY REFIT EQUATION WITHOUT THE RACE VARIABLE FOR THE IDMS-TRACEABLE CREATININE METHODS. https://jasn.asnjournals.org/content//ASN.55232 03684 Performed By: #### S TAPH #### [facility] [address] [place] [address] Glucose [Mass/Vol] 87 mg/dL Normal 74 - 99 [facility] Comment on above: Performed By: #### S TAPH #### [facility] [address] [place] [address] HCO3 (Bld) [Moles/Vol] 20 mmol/L Low 21 - 32 [facility] Comment on above: Performed By: #### S TAPH #### [facility] [address] [place] [address] Potassium [Moles/Vol] 5.5 mmol/L High 3.5 - 5.3 [facility] Comment on above: Performed By: #### S TAPH #### [facility] [address] [place] [address] Sodium [Moles/Vol] 137 mmol/L Normal 136 - 145 [facility] Comment on above: Performed By: #### S TAPH #### [facility] [address] [place] [address] Urea nitrogen [Mass/Vol] 19 mg/dL Normal 6 - 23 [facility] Comment on above: Performed By: #### S TAPH #### [facility] [address] [place] [address] CBCon 07-11-2021 Erythrocyte distribution width (RBC) [Ratio] 17.9 % High 11.5 - 14.5 [facility] Comment on above: Performed By: #### C OAGS #### [facility] [address] [place] [address] Hematocrit (Bld) [Volume fraction] 38.7 % Normal 36.0 - 46.0 [facility] Comment on above: Performed By: #### C OAGS #### [facility] [address] [place] [address] Hemoglobin (Bld) [Mass/Vol] 10.8 g/dL Low 12.0 - 16.0 [facility] Comment on above: Performed By: #### C OAGS #### [facility] [address] [place] [address] MCHC (RBC) [Mass/Vol] 27.9 g/dL Low 32.0 - 36.0 [facility] Comment on above: Performed By: #### C OAGS #### [facility] [address] [place] [address] MCV (RBC) [Entitic vol] 91 fL Normal 80 - 100 [facility] Comment on above: Performed By: #### C OAGS #### [facility] [address] [place] [address] NUCLEATED RBC 0.0 /100 WBC Normal 0.0-0.0 [facility] Comment on above: Performed By: #### C OAGS #### [facility] [address] [place] [address] Platelets (Bld) [#/Vol] 443 10*3/uL Normal 150 - 450 [facility] Comment on above: Performed By: #### C OAGS #### [facility] [address] [place] [address] RBC 4.23 x10E12/L Normal 4.00 - 5.20 [facility] Comment on above: Performed By: #### C OAGS #### [facility] [address] [place] [address] WBC (Bld) [#/Vol] 7.3 10*3/uL Normal 4.4 - 11.3 [facility] Comment on above: Performed By: #### C OAGS #### [facility] [address] [place] [address] COAGULATION SCREENon 022 aPTT Coag (Bld) [Time] 41 s High 26 - 39 [facility] Comment on above: Result Comment: Note new reference range as of 04/01/2021 at 10:00am. Performed By: #### C OAGS #### [facility] [address] [place] [address] PT Coag (PPP) [Time] 13.5 s High 9.8 - 13.4 [facility] Comment on above: Result Comment: Note new reference range as of 04/01/2021 at 10:00am. Performed By: #### C OAGS #### [facility] [address] [place] [address] PT, INR 1.2 High 0.9 - 1.1 [facility] Comment on above: Performed By: #### C OAGS #### [facility] [address] [place] [address] Cult, Urineon 07-11-2021 Bacteria identified Cx Nom (U) Abnormal [facility] Work Phone: Laboratory - Blood bankon ABO group Nom (Bld) O [facility] Work Phone: Blood group antibody screen Ql Negative [facility] Work Phone: Rh immune globulin screen (Bld) [Interp] Positive [facility] Work Phone: Laboratory - Chemistry and C hemistry - challengeon 07-11-2021 Anion gap [Moles/Vol] 16 mmol/L 10 - 20 MG- Neurosur [facility] Work Phone: Calcium [Mass/Vol] 8.3 mg/dL below low threshold 8.6 - 10.6 [facility] Work Phone: Chloride [Moles/Vol] 107 mmol/L 98 - 107 [facility]-N eurosur [facility] Work Phone: CO2 [Moles/Vol] 20 mmol/L below [...] 7.3 10*3/uL 4.4 - 11.3 MG-Alejandrina rosur humberto-[facility] Work Phone: MRSA Screenon 07-11-2021 Staphylococcus sp identified Org specific cx Nom (Unsp spec) [facility] Work Phone: No Panel Informationon 07-11 63 {mL/min/1.73m2} >90 [facility]Ale[facility]andrina rosur humberto-[facility] Work Phone: Comment on above: CALCULATIONS OF JAGRUTI MATED GFR ARE PERFORMED USING THE 2020 CKD-EPI STUDY REFIT EQUATION WITHOUT THE RACE VARIABLE FOR THE IDMS-TRACEABLE CREATININE METHODS.https://jasn.asnjournals.org/content//A SN.1674891883 0.0 {/100_WBC} 0.0-0.0 [facility]urosu r [facility]berto-[facility] Work Phone: STAPH/MRSA SCREENon 07-12-19 STAPH/MRSA SCREEN PATIENT: DEANA CROFT LOCATION: CAT GHOTRA#: [id number] : 68 AGE: SEX: F ORDERED BY: TRI AWAD SOURCE: ANTERIOR NARES COLLECTED: 07/11/21 14:38 ANTIBIOTICS AT SULMA.: RECEIVED : 07/11/21 18:06 SITE: Nasal R E S U L T S STAPH/MRSA SCREEN FINAL 07/13/21 09:17 NO Staphylococcus aureus ISOLATED. Normal [facility] Comment on above: Performed By: #### U RINC #### [facility] [address] [place] [address] TYPE + SCREENon 07-11-2021 ABO TYPE O Normal [facility] Comment on above: Performed By: #### C OAGS #### [facility] [address] [place] [address] RH TYPE Positive Normal [facility] Comment on above: Performed By: #### C OAGS #### [facility] [address] [place] [address] UA MICROSCOPICon 07-11-2021 BACTERIA 4+ /HPF Abnormal [facility] Comment on above: Performed By: #### C OAGS #### [facility] [address] [place] [id number] Mucus Ql (Urine sed) 1+ /LPF Normal [facility] Comment on above: Performed By: #### C OAGS #### [facility] [address] [place] [address] RBC 30 /HPF Abnormal 0-5 [facility] Comment on above: Performed By: #### C OAGS #### [facility] [address] [place] [address] SQUAMOUS EPITH. CELLS 6 /HPF Normal [facility] Comment on above: Performed By: #### C OAGS #### [facility] [address] [place] [address] WBC (U) [#/Vol] /uL Abnormal 0-5 [facility] Comment on above: Performed By: #### C OAGS #### [facility] [address] [place] [address] URINALYSIS WITH CULTURE IF I NDICATEDon 07-11-2021 Appearance (U) HAZY Normal CLEAR [facility] Comment on above: Performed By: #### U ARFX #### [facility] [address] [place] [address] Bilirubin Ql (U) Negative Normal NEGATIVE [facility] Comment on above: Performed By: #### U ARFX #### [facility] [address] [place] [address] Color (U) YELLOW Normal STRAW,YELL OW [facility] Comment on above: Performed By: #### U ARFX #### [facility] [address] [place] [address] Glucose Ql (U) Negative Normal NEGATIVE [facility] Comment on above: Performed By: #### U ARFX #### [facility] [address] [place] [address] Hemoglobin Ql (U) Negative Normal NEGATIVE [facility] Comment on above: Performed By: #### U ARFX #### [facility] [address] [place] [address] Ketones Ql (U) Negative Normal NEGATIVE [facility] Comment on above: Performed By: #### U ARFX #### [facility] [address] [place] [address] Leukocyte esterase Test strip Ql (U) LARGE (3+) Abnormal NEGATIVE [facility] Comment on above: Performed By: #### U ARFX #### [facility] [address] [place] [address] Nitrite Ql (U) Positive Abnormal NEGATIVE [facility] Comment on above: Performed By: #### U ARFX #### [facility] [address] [place] [address] pH (U) 5.0 [pH] Normal 5.0 - 8.0 [facility] Comment on above: Performed By: #### U ARFX #### [facility] [address] [place] [address] Protein Ql (U) 100 (2+) Abnormal NEGATIVE [facility] Comment on above: Performed By: #### U ARFX #### [facility] [address] [place] [address] Specific gravity (U) [Rel density] 1.024 Normal 1.005 - 1.035 [facility] Comment on above: Performed By: #### U ARFX #### [facility] [address] [place] [address] Urobilinogen (U) [Mass/Vol] mg/dL Normal 0.0 - 1.9 [facility] Comment on above: Performed By: #### U ARFX #### [facility] [address] [place] [address] Color (U) YELLOW See Below [facility] Work Phone: Comment on above: Reference Range: STR AW,YELLOW Glucose Ql (U) Negative NEGATIVE [facility]uro[facility] Work Phone: [phone] Ketones Ql (U) Negative NEGATIVE [facility] Work Phone: [phone] Leukocyte esterase Test strip Ql (U) LARGE (3+) Abnormal NEGATIVE [facility] Work Phone: [phone] pH (U) 5.0 [pH] 5.0 - 8.0 [facility] Work Phone: [phone] Protein (U) [Mass/Vol] 100 (2+) Abnormal NEGATIVE [facility] Work Phone: RBC (U) [#/Vol] Negative NEGATIVE [facility]uros ur [facility] Work Phone: Specific gravity (U) [Rel density] 1.024 1 See Below [facility] Work Phone: Comment on above: Reference Range: [...] CULTURE,BACTERIALon URINE CULTURE,BACTERIAL PATIENT: DEANA CROFT LOCATION: [facility]#: [id number] : 68 AGE: SEX: F ORDERED BY: [...] DOSE DEPENDENT NS=NONSUSCEPTIBLE X=REPORTED IN ERROR Normal [facility] Comment on above: Performed By: #### U [facility] #### [facility] [address] [place] [address] Urinalysis, Microscopicon Urinalysis, Microscopic 1+ [facility] Work Phone: Urinalysis, Microscopic 4+ Abnormal [facility] Work Phone: Urinalysis, Microscopic 6 {/HPF} [facility] Work Phone: Urinalysis, Microscopic 30 {/HPF} Abnormal 0-5 [facility] Work Phone: Urinalysis, Microscopic >182 Abnormal 0-5 [facility] Work Phone: Complete Blood Counton 05-28 Erythrocyte distribution width (RBC) [Ratio] 15.1 % High 11.0-15.0 [facility] Specialist Comment on above: Performed By: #### C GORDON MERRITT CMP, FE Prof #### [facility] [address] [place], [place] [id number] Hematocrit (Bld) [Volume fraction] 26.5 % Low 35.0-47.0 [facility] Specialist Comment on above: Performed By: #### C GORDON MERRITT CMP, FE Prof #### [facility] [address] [facility] [place] [id number] Hemoglobin (Bld) [Mass/Vol] 8.0 g/dL Low 11.6-15.5 [facility] Specialist Comment on above: Performed By: #### C GORDON MERRITT CMP, FE Prof #### [facility] [address] [place], [place] [id number] MCH (RBC) [Entitic mass] 25.6 pg Low 27.0-33.0 [facility] Comment on above: Performed By: #### C BC, FERR, CMP, FE Prof #### [facility] [address] [place], [place] [id number] MCHC (RBC) [Mass/Vol] 30.2 g/dL Low 32.0-36.0 [facility] Comment on above: Performed By: #### C BC, FERR, CMP, FE Prof #### [facility] [address] [place], [place] [id number] MCV (RBC) [Entitic vol] 85 fL Normal 80-100 [facility] Comment on above: Performed By: #### C BC, FERR, CMP, FE Prof #### [facility] [address] [place], [place] [id number] Platelet mean volume (Bld) [Entitic vol] 9.90 fL Normal 7.50-12.50 [facility] Comment on above: Performed By: #### C BC, FERR, CMP, FE Prof #### [facility] [address] [place], [place] [id number] Platelets (Bld) [#/Vol] 518 10*3/uL High 140-400 [facility] Comment on above: Performed By: #### C BC, FERR, CMP, FE Prof #### [facility] [address] [place], [place] [id number] RBC (Bld) [#/Vol] 3.13 10*6/uL Low 3.90-5.20 [facility] Comment on above: Performed By: #### C BC, FERR, CMP, FE Prof #### [facility] [address] [place], [place] [id number] RDW-SD 45.1 fL Normal 37.0-50.0 [facility] Comment on above: Performed By: #### C BC, FERR, CMP, FE Prof #### [facility] [address] [place], [place] [id number] WBC (Bld) [#/Vol] 10.3 10*3/uL Normal 3.8-11.0 [facility] Comment on above: Performed By: #### C BC, FERR, CMP, FE Prof #### [facility] [address] [place], [place] [id number] Comprehensive Metabolic Pane jose antonio 05-28-2021 Albumin [Mass/Vol] 2.6 g/dL Low 3.6-5.1 [facility] Comment on above: Performed By: #### C BC, FERR, CMP, FE Prof #### [facility] [address] [place], [place] [id number] Albumin/Globulin [Mass ratio] 0.7 {ratio} Low 1.0-2.5 [facility] Comment on above: Performed By: #### C BC, FERR, CMP, FE Prof #### [facility] [address] [facility] [place] [id number] ALP [Catalytic activity/Vol] 248 U/L High 35-119 [facility] Comment on above: Performed By: #### C BC, FERR, CMP, FE Prof #### [facility] [address] [place], [place] [id number] ALT [Catalytic activity/Vol] 7 U/L Normal 6-33 [facility] Specialist Comment on above: Result Comment: 04/02 Female reference range changed. Performed By: #### C BC, FERR, CMP, FE Prof #### [facility] [address] [facility] [place] [id number] Anion gap [Moles/Vol] 19 mmol/L Normal 12-20 [facility] Comment on above: Result Comment: Effe ctive 05/08/2019 reference range changed. Performed By: #### C BC, FERR, CMP, FE Prof #### [facility] [address] [facility] [place] [id number] AST [Catalytic activity/Vol] 12 U/L Normal 9-34 [facility] Specialist Comment on above: Performed By: #### C BC, FERR, CMP, FE Prof #### [facility] [address] [facility] [place] [id number] BUN/CREA 22 Ratio Normal 6-22 [facility] Specialist Comment on above: Performed By: #### C BC, FERR, CMP, FE Prof #### [facility] [address] [place], [place] [id number] Calcium [Mass/Vol] 8.0 mg/dL Low 8.6-10.2 [facility] Comment on above: Performed By: #### C BC, FERR, CMP, FE Prof #### [facility] [address] [facility] [place] [id number] Chloride [Moles/Vol] 108 mmol/L High 98-[address] [facility] Comment on above: Performed By: #### C BC, FERR, CMP, FE Prof #### [facility] [address] [facility] [place] [id number] CO2 [Moles/Vol] 17 mmol/L Low 20-31 [facility] Comment on above: Performed By: #### C BC, FERR, CMP, FE Prof #### [facility] [address] [facility] [place] [id number] Creatinine [Mass/Vol] 1.0 mg/dL Normal 0.6-1.4 [facility] Comment on above: Performed By: #### C BC, FERR, CMP, FE Prof #### [facility] [address] [facility] [place] [id number] eGFRAA 71 mL/min/1.73m2 Normal >60 [facility] Specialist Comment on above: Performed By: #### C BC, FERR, CMP, FE Prof #### [facility] [address] [place], [place] [id number] eGFRNAA 58 mL/min/1.73m2 Low >60 [facility] Specialist Comment on above: Performed By: #### C BC, FERR, CMP, FE Prof #### [facility] [address] [facility] [place] [id number] Globulin (S) [Mass/Vol] 3.6 g/dL Normal 1.9-3.7 [facility] Specialist Comment on above: Performed By: #### C BC, FERR, CMP, FE Prof #### [facility] [address] [facility] [place] [id number] Glucose [Mass/Vol] 82 mg/dL Normal 65-[address] [facility] Arboriculturist Comment on above: Result Comment: For FASTING Glucose --- ADA reference ranges: Normal 65-99 mg/dl Prediabetes 100-125 Diabetes >/= 126 Performed By: #### C BC, FERR, CMP, FE Prof #### [facility] [address] [place], [place] [id number] Potassium [Moles/Vol] 4.9 mmol/L Normal 3.5-5.5 [facility] Comment on above: Performed By: #### C BC, FERR, CMP, FE Prof #### [facility] [address] [place], [place] [id number] Protein [Mass/Vol] 6.2 g/dL Normal 6.1-8.1 [place] Arboriculturist Comment on above: Performed By: #### C BC, FERR, CMP, FE Prof #### [facility] [address] [place], [place] [id number] Sodium [Moles/Vol] 140 mmol/L Normal 135-146 [place] Arboriculturist Comment on above: Performed By: #### C BC, FERR, CMP, FE Prof #### [facility] [address] [place], [place] [id number] TBIL <0.3 Normal [facility] Specialist Comment on above: Performed By: #### C BC, FERR, CMP, FE Prof #### [facility] [address] [place], [place] [id number] Urea nitrogen [Mass/Vol] 22 mg/dL Normal 7-25 [facility] Arboriculturist Comment on above: Performed By: #### C BC, FERR, CMP, FE Prof #### [facility] [address] [place], [place] [id number] Ferritinon 05-28-2021 FERR 293.5 ng/mL High 15.0-150.0 [facility] Arboriculturist Comment on above: Performed By: #### C BC, FERR, CMP, FE Prof #### [facility] [address] [place], [place] [id number] Iron Profileon 05-28-2021 %FESAT 29 % Normal 11-50 [facility] Arboriculturist Comment on above: Performed By: #### C BC, FERR, CMP, FE Prof #### [facility] [address] [place], [place] [id number] FE 37 ug/dL Low 40-190 [facility] Specialist Comment on above: Result Comment: Refe rence range change 03/19/2017. Prior reference range F 37-145 ug/dL, M 59-158 ug/dL. Performed By: #### C BC, FERR, CMP, FE Prof #### [facility] [address] [place], [place] [id number] TIBC 126 ug/dL Low 250-450 [facility] Specialist Comment on above: Performed By: #### C BC, FERR, CMP, FE Prof #### [facility] [address] [place], [place] [id number] UIBC 89 ug/dL Low 112-347 [facility] Specialist Comment on above: Performed By: #### C BC, FERR, CMP, FE Prof #### [facility] [address] [place], [place] [id number] Vitamin B12on 05-28-2021 Cobalamin (Vitamin B12) [Mass/Vol] pg/mL High [facility] Comment on above: Performed By: #### B 12 #### [facility] [address] [place], [place] [id number] BASIC METABOLIC PANELon 05-03 Anion gap [Moles/Vol] 17 mmol/L Normal 10 - 20 [facility] Comment on above: Performed By: #### S TAPH #### [facility] [address] [place] [address] Calcium [Mass/Vol] 7.7 mg/dL Low 8.6 - 10.6 [facility] Comment on above: Performed By: #### S TAP #### [facility] [address] [place] [address] Chloride [Moles/Vol] 107 mmol/L Normal 98 - 107 [facility] Comment on above: Performed By: #### S TAPH #### [facility] [address] [place] [address] Creatinine [Mass/Vol] 1.67 mg/dL High 0.50 - 1.05 [facility] Comment on above: Performed By: #### S TAPH #### [facility] [address] [place] [address] GFR/1.73 sq M.predicted among non-blacks MDRD (S/P/Bld) [Vol rate/Area] 37 mL/min/{1.73_m2} Abnormal >90 [facility] Comment on above: Result Comment: CALC ULATIONS OF ESTIMATED GFR ARE PERFORMED USING THE 2020 CKD-EPI STUDY REFIT EQUATION WITHOUT THE RACE VARIABLE FOR THE IDMS-TRACEABLE CREATININE METHODS. https://jasn.asnjournals.org/content/early/ASN.71997 08083 Performed By: #### S TAPH #### [facility] [address] [place] [address] Glucose [Mass/Vol] 96 mg/dL Normal 74 - 99 [facility] Comment on above: Performed By: #### S TAPH #### [facility] [address] [place] [address] HCO3 (Bld) [Moles/Vol] 16 mmol/L Low 21 - 32 [facility] Comment on above: Performed By: #### S TAPH #### [facility] [address] [place] [address] Potassium [Moles/Vol] 4.2 mmol/L Normal 3.5 - 5.3 [facility] Comment on above: Performed By: #### S TAPH #### [facility] [address] [place] [address] Sodium [Moles/Vol] 136 mmol/L Normal 136 - 145 [facility] Comment on above: Performed By: #### S TAPH #### [facility] [address] [place] [address] Urea nitrogen [Mass/Vol] 16 mg/dL Normal 6 - 23 [facility] Comment on above: Performed By: #### S TAPH #### [facility] [address] [place] [address] CBC AND DIFFERENTIALon 05-15 % AUTOMATED IMMATURE GRAN 2.3 % High 0.0 - 0.9 [facility] Comment on above: Result Comment: Fernanda ture Granulocyte Count (IG) includes promyelocytes, myelocytes and metamyelocytes but does not include bands. Percent differential counts (%) should be interpreted in the context of the absolute cell counts (cells/L). Performed By: #### C BCDF #### [facility] [address] [place] [address] Basophils (Bld) [#/Vol] 0.10 10*3/uL Normal 0.00 - 0.10 [facility] Comment on above: Performed By: #### C BCDF #### [facility] [address] [place] [address] Basophils/100 WBC (Bld) 0.8 % Normal 0.0 - 2.0 [facility] Comment on above: Performed By: #### C BCDF #### [facility] [address] [place] [address] Eosinophils (Bld) [#/Vol] 0.03 10*3/uL Normal 0.00 - 0.70 [facility] Comment on above: Performed By: #### C BCDF #### [facility] [address] [place] [address] Eosinophils/100 WBC (Bld) 0.2 % Normal 0.0 - 6.0 [facility] Comment on above: Performed By: #### C BCDF #### [facility] [address] [place] [address] Erythrocyte distribution width (RBC) [Ratio] 13.4 % Normal 11.5 - 14.5 [facility] Comment on above: Performed By: #### C BCDF #### [facility] [address] [place] [address] Hematocrit (Bld) [Volume fraction] 30.9 % Low 36.0 - 46.0 [facility] Comment on above: Performed By: #### C BCDF #### [facility] [address] [place] [address] Hemoglobin (Bld) [Mass/Vol] 9.7 g/dL Low 12.0 - 16.0 [facility] Comment on above: Performed By: #### C BCDF #### [facility] [address] [place] [address] Lymphocytes (Bld) [#/Vol] 2.13 10*3/uL Normal 1.20 - 4.80 [facility] Comment on above: Performed By: #### C BCDF #### [facility] [address] [place] [address] Lymphocytes/100 WBC (Bld) 17.1 % Normal 13.0 - 44.0 [facility] Comment on above: Performed By: #### C BCDF #### [facility] [address] [place] [address] MCHC (RBC) [Mass/Vol] 31.4 g/dL Low 32.0 - 36.0 [facility] Comment on above: Performed By: #### C BCDF #### [facility] [address] [place] [address] MCV (RBC) [Entitic vol] 85 fL Normal 80 - 100 [facility] Comment on above: Performed By: #### C BCDF #### [facility] [address] [place] [address] Monocytes (Bld) [#/Vol] 1.06 10*3/uL High 0.10 - 1.00 [facility] Comment on above: Performed By: #### C BCDF #### [facility] [address] [place] [address] Monocytes/100 WBC (Bld) 8.5 % Normal 2.0 - 10.0 [facility] Comment on above: Performed By: #### C BCDF #### [facility] [address] [place] [address] Neutrophils (Bld) [#/Vol] 8.85 10*3/uL High 1.20 - 7.70 [facility] Comment on above: Performed By: #### C BCDF #### [facility] [address] [place] [address] Neutrophils/100 WBC (Bld) 71.1 % Normal 40.0 - 80.0 [facility] Comment on above: Performed By: #### C BCDF #### [facility] [address] [place] [address] NUCLEATED RBC 0.0 /100 WBC Normal 0.0-0.0 [facility] Comment on above: Performed By: #### C BCDF #### [facility] [address] [place] [address] Platelets (Bld) [#/Vol] 555 10*3/uL High 150 - 450 [facility] Comment on above: Performed By: #### C BCDF #### [facility] [address] [place] [address] RBC 3.64 x10E12/L Low 4.00 - 5.20 [facility] Comment on above: Performed By: #### C BCDF #### [facility] [address] [place] [address] WBC (Bld) [#/Vol] 12.5 10*3/uL High 4.4 - 11.3 [facility] Comment on above: Performed By: #### C BCDF #### [facility] [address] [place] [address] COAGULATION SCREENon 022 aPTT Coag (Bld) [Time] 36 s Normal 26 - 39 [facility] Comment on above: Result Comment: Note new reference range as of 04/01/2021 at 10:00am. Performed By: #### C OAGS #### [facility] [address] [place] [address] PT Coag (PPP) [Time] 14.3 s High 9.8 - 13.4 [facility] Comment on above: Result Comment: Note new reference range as of 04/01/2021 at 10:00am. Performed By: #### C OAGS #### [facility] [address] [place] [address] PT, INR 1.2 High 0.9 - 1.1 [facility] Comment on above: Performed By: #### C OAGS #### [facility] [address] [place] [address] Complete Blood Count + Diffe rentialon 05-15-2021 Basophils/100 WBC (Bld) 0.8 % 0.0 - 2.0 [facility] Work Phone: [phone] Erythrocyte distribution width (RBC) [Ratio] 13.4 % See Below [facility] Work Phone: Comment on above: Reference Range: 11. 5 - 14.5 Hematocrit (Bld) [Volume fraction] 30.9 % below low threshold See Below [facility] Work Phone: Comment on above: Reference Range: 36. 0 - 46.0 Hemoglobin (Bld) [Mass/Vol] 9.7 g/dL below low threshold See Below [facility] Work Phone: [phone] Comment on above: Reference Range: 12. 0 - 16.0 Lymphocytes/100 WBC (Bld) 17.1 % See Below [facility] Work Phone: Comment on above: Reference Range: 13. 0 - 44.0 MCHC (RBC) [Mass/Vol] 31.4 g/dL below low threshold See Below [facility] Work Phone: [phone] Comment on above: Reference Range: 32. 0 - 36.0 MCV (RBC) [Entitic vol] 85 fL 80 - 100 [facility] Work Phone: [phone] Monocytes/100 WBC (Bld) 8.5 % 2.0 - 10.0 [facility] Work Phone: [phone] Neutrophils/100 WBC (Bld) 71.1 % See [...] Count + Differential 0.0 {/100_WBC} 0.0-0.0 [facility] Work Phone: Initial Visit (Neurosurgery) on 05-15-2021 [...] Vitals Vital Signs Recorded: 15May2021 10:40AM Heart Emsj673 Ptpnjjqjcmd07 Ewcdpgwe429 Tredjahrh32 Height5 ft 6.5 in Iruqxh237 lb BMI Geuelutbzq13.21 kg/m2 BSA Calculated1.97 Physical Exam Constitutional - [...] 11:39AM ES (more content not included)... Normal [facility] - Blood bankon ABO group Nom (Bld) O [facility]ros[facility] Work Phone: Blood group antibody screen Ql Negative [facility] Work Phone: Rh immune globulin screen (Bld) [Interp] Positive [facility] Work Phone: Laboratory - Chemistry and C hemistry - challengeon 05-15-2021 Anion gap [Moles/Vol] 17 mmol/L 10 - 20 [facility] Work Phone: Calcium [Mass/Vol] 7.7 mg/dL below low threshold 8.6 - 10.6 [facility] Work Phone: Chloride [Moles/Vol] 107 mmol/L 98 - 107 [facility]-N eurosur [facility] Work Phone: CO2 [Moles/Vol] 16 mmol/L below low threshold 21 - 32 [facility] Work Phone: Creatinine [Mass/Vol] 1.67 mg/dL above high threshold See Below [facility] Work Phone: Comment on above: Reference Range: [...] RACE VARIABLE FOR THE IDMS-TRACEABLE CREATININE METHODS.https://jasn.asnjournals.org/content/early/A SN.6058120620 STAPH/MRSA SCREENon 05-15-19 STAPH/MRSA SCREEN PATIENT: DEANA CROFT LOCATION: [address]#: [id number] : 68 AGE: SEX: F ORDERED BY: TRI AWAD SOURCE: NASOPHARYNGEAL COLLECTED: 05/15/21 11:30 ANTIBIOTICS AT [facility].: RECEIVED : 05/15/21 17:22 SITE: R E S U L T S STAPH/MRSA SCREEN FINAL 05/17/21 10:10 NO Staphylococcus aureus ISOLATED. Normal [facility] Comment on above: Performed By: #### S TAPH #### [facility] [address] [place] [id number] TYPE + SCREENon 05-15-2021 ABO TYPE O Normal [facility] Comment on above: Performed By: #### S TAPH #### [facility] [address] [place] [id number] RH TYPE Positive Normal [facility] Comment on above: Performed By: #### S TAPH #### [facility] [address] [place] [address] URINALYSISon 05-15-2021 Appearance (U) Canceled Normal [facility] Comment on above: Order Comment: TEST URINALYSIS WAS CANCELLED, 05/15/2021 12:54 pt couldnt void. Performed By: #### U RINC #### [facility] [address] [place] [id number] ASCORBIC ACID Canceled Normal [facility] Comment on above: Order Comment: TEST URINALYSIS WAS CANCELLED, 05/15/2021 12:54 pt couldnt void. Result Comment: Conc entrations > = 20 mg/dL of ascorbic acid can be expected to cause strong interference in the reactions testing for glucose, nitrite and blood. It is recommended to discontinue Vitamin C administration and retest in 10 hours. Performed By: #### U RINC #### [facility] [address] [place] [id number] Bilirubin Ql (U) Canceled Normal [facility] Comment on above: Order Comment: TEST URINALYSIS WAS CANCELLED, 05/15/2021 12:54 pt couldnt void. Performed By: #### U RINC #### [facility] [address] [place] [address] Color (U) Canceled Normal [facility] Comment on above: Order Comment: TEST URINALYSIS WAS CANCELLED, 05/15/2021 12:54 pt couldnt void. Performed By: #### U RINC #### [facility] [address] [place] [address] Glucose Ql (U) Canceled Normal [facility] Comment on above: Order Comment: TEST URINALYSIS WAS CANCELLED, 05/15/2021 12:54 pt couldnt void. Performed By: #### U RINC #### [facility] [address] [place] [address] Hemoglobin Ql (U) Canceled Normal [facility] Comment on above: Order Comment: TEST URINALYSIS WAS CANCELLED, 05/15/2021 12:54 pt couldnt void. Performed By: #### U RINC #### [facility] [address] [place] [address] Ketones Ql (U) Canceled Normal [facility] Comment on above: Order Comment: TEST URINALYSIS WAS CANCELLED, 05/15/2021 12:54 pt couldnt void. Performed By: #### U RINC #### [facility] [address] [place] [address] Leukocyte esterase Test strip Ql (U) Canceled Normal [facility] Comment on above: Order Comment: TEST URINALYSIS WAS CANCELLED, 05/15/2021 12:54 pt couldnt void. Performed By: #### U RINC #### [facility] [address] [place] [address] Nitrite Ql (U) Canceled Normal [facility] Comment on above: Order Comment: TEST URINALYSIS WAS CANCELLED, 05/15/2021 12:54 pt couldnt void. Performed By: #### U RINC #### [facility] [address] [place] [address] pH Canceled Normal [facility] Comment on above: Order Comment: TEST URINALYSIS WAS CANCELLED, 05/15/2021 12:54 pt couldnt void. Performed By: #### U RINC #### [facility] [address] [place] [address] Protein Ql (U) Canceled Normal [facility] Comment on above: Order Comment: TEST URINALYSIS WAS CANCELLED, 05/15/2021 12:54 pt couldnt void. Performed By: #### U RINC #### [facility] [address] [place] [address] Specific gravity (U) [Rel density] Canceled Normal [facility] Comment on above: Order Comment: TEST URINALYSIS WAS CANCELLED, 05/15/2021 12:54 pt couldnt void. Performed By: #### U RINC #### [facility] [id number] [place] [address] UROBILINOGEN Canceled Normal [facility] Comment on above: Order Comment: TEST URINALYSIS WAS CANCELLED, 05/15/2021 12:54 pt couldnt void. Performed By: #### U RINC #### [facility] [id number] [place] [address] Urinalysison 05-15-2021 Appearance (U) Canceled [facility] Work Phone: Color (U) Canceled [facility] Work Phone: Glucose Ql (U) Canceled [facility] Work Phone: Ketones Ql (U) Canceled [facility] Work Phone: Leukocyte esterase Test strip Ql (U) Canceled [facility] Work Phone: Protein (U) [Mass/Vol] Canceled [facility] Work Phone: RBC (U) [#/Vol] Canceled [facility] Work Phone: Specific gravity (U) [Rel density] Canceled [facility] Work Phone: Urinalysis [facility]eled [facility]: Comment on above: Concentrations > = 2 0 mg/dL of ascorbic acid can be expected to cause strong interference in the reactions testing for glucose, nitrite and blood. It is recommended to discontinue Vitamin C administration and retest in 10 hours. Initial Visit (Neurosurgery) on 05-08-2021 Initial Visit (Neurosurgery) No report was sent [facility] 04-30-2021 CULTURE URINE Culture Observations : LIGHT GROWTH OF MIXED GENITAL BHUPENDRA. NO POTENTIAL PATHOGENS SEEN. Normal [facility] Comment on above: Performed By: #### U RCX #### [facility] [address] [place] [address] Dr. Priya Head ER URINE PROFILEon Bilirubin Ql (U) Negative Normal NEGATIVE [facility] Comment on above: Performed By: #### Nancy JUNIOR UMICRO #### [facility] [address] [place] [address] Dr. Priya Head Clarity (U) CLEAR Normal CLEAR [facility] Comment on above: Performed By: #### E RUR, UMICRO #### [facility] [address] [place] [address] Dr. Priya Head Color (U) YELLOW Normal YELLOW [facility] Comment on above: Performed By: #### E RUR, UMICRO #### [facility] [address] [place] [address] Dr. Priya Head ERUAHD A micrscopic examina tion will be performed if indicated. Normal [facility] Comment on above: Performed By: #### E RUR, UMICRO #### [facility] [address] [place] [address] Dr. Priya Head Glucose Ql (U) Negative Normal NEGATIVE [facility] Comment on above: Performed By: #### E RUR UMICRO #### [facility] [address] [place] [address] Dr. Priya Head Hemoglobin Ql (U) MODERATE Abnormal NEGATIVE [facility] Comment on above: Performed By: #### TAMMI YI #### [facility] [address] [place] [address] Dr. Priya Head Ketones Ql (U) Negative Normal NEGATIVE [facility] Comment on above: Performed By: #### BRYNN YIRO #### [facility] [address] [place] [address] Dr. Priya Head LEUKOCYTES SMALL Abnormal NEGATIVE [facility] Comment on above: Performed By: #### BRYNN YIRO #### [facility] [address] [place] [address] Dr. Priya Head Nitrite Ql (U) Negative Normal NEGATIVE [facility] Comment on above: Performed By: #### TAMMI YI #### [facility] [address] [place] [address] Dr. Priya Head pH (U) 5.0 [pH] Normal 5-9 [facility] Comment on above: Performed By: #### TAMMI YI #### [facility] [address] [place] [address] Dr. Priya Head Protein (U) [Mass/Vol] 30 mg/dL Abnormal NEGAT SAURAV/ TRACE [facility] Comment on above: Performed By: #### TAMMI YI #### [facility] [address] [place] [address] Dr. Priya Head SPEC GRAVITY 1.025 Normal 1.005-<=1. 025 [facility] Comment on above: Performed By: #### TAMMI YI #### [facility] [address] [place] [address] Dr. Priya Head UR MICRO IND INDICATED Normal [facility] Comment on above: Performed By: #### BRYNN YIRO #### [facility] [address] [place] [address] Dr. Priya Head Urobilinogen Qn (U) 0.2 {Ramses'U}/dL Normal 0.2 - 1. 0 [facility] Comment on above: Performed By: #### E VANDANAR UMICRO #### [facility] [address] [place] [address] Dr. Priya Head URINE MICROSCOPIC ONLYon BACTERIA SMALL Abnormal NONE SEEN [facility] Comment on above: Performed By: #### E RUR UMICRO #### [facility] [address] [place] [address] Dr. Priya Head Bacteria identified Cx Nom (U) INDICATED Normal [facility] Comment on above: Performed By: #### E SANDI UMICRO #### [facility] [address] [place] [address] Dr. Priya Head CAST NONE SEEN Normal NONE SEEN [facility] Comment on above: Performed By: #### E SANDI UMICRO #### [facility] [address] [place] [address] Dr. Priya Head Crystals LM Nom (Urine sed) NONE SEEN Normal NONE SEEN [facility] Comment on above: Performed By: #### Nancy JUNIOR UMICRO #### [facility] [address] [place] [address] Dr. Priya Head Epithelial cells LM Ql (Urine sed) NONE SEEN Normal NONE SEEN /RARE [facility] Comment on above: Performed By: #### Nancy JUNIOR UMICRO #### [facility] [address] [place] [address] Dr. Priya Head MUCOUS NONE SEEN Normal NONE SEEN [facility] Comment on above: Performed By: #### E RUR UMICRO #### [facility] [address] [place] [address] Dr. Priya Head RBC 0-2 Normal 0-2 [facility] Comment on above: Performed By: #### E RUR, UMICRO #### [facility] [address] [place] [address] Dr. Priya Head WBC 5-10 Abnormal NONE SEEN [facility] Comment on above: Performed By: #### E RUR UMICRO #### [facility] [address] [place] [address] Dr. Priya Head VITAMIN Loy 11-27-2020 Vitamin K1 0.05 ng/mL Critically low 0.10-2.20 [facility] Comment on above: Result Comment: Pl ease note reference interval change Performed By: #### V ITKLC #### [facility] [address] [place] [address] Ursulasilvia Red VITAMIN Sunny 11-22-2020 Vitamin E (Alpha T) 1.9 mg/L Critically low 7.0-25.1 [facility] Comment on above: Performed By: #### V ITAE #### [facility] [address] [place] [address] Ursula Neda Vitamin E (Gamma T) 0.7 mg/L Normal 0.5-5.5 [facility] Comment on above: Result Comment: Refe rence intervals for alpha and gamma-tocopherol determined from National Health and Nutrition Examination Survey, 7983-1315. Individuals with alpha-tocopherol levels less than 5.0 mg/L are considered vitamin E deficient. Performed By: #### V ITAE #### [facility] [address] [place], [place] [id number] Ursula Neda PTH INTACTon 11-20-2020 PTH, Intact 172 pg/mL Critically high 15-65 [facility] Comment on above: Performed By: #### P THINT #### [facility] [address] [place] [address] Ursulasilvia Amayaen CBC AUTO DIFFon 11-19-2020 BASO # 0.1 103/ul Normal 0.0-0.1 [facility] Comment on above: Performed By: #### C BC #### [facility] [address] [place], [place] [address] Ursulasilvia Red Basophils/100 WBC (Bld) 1.0 % Normal 0.2-2.0 [facility] Comment on above: Performed By: #### C BC #### [facility] [address] [place] [address] Ursula Neda EO # 0.1 103/ul Normal 0.0-0.7 [facility] Comment on above: Performed By: #### C BC #### [facility] [address] [place] [address] Ursula Neda Eosinophils/100 WBC (Bld) 1.2 % Normal 0.9-7.0 [facility] Comment on above: Performed By: #### C BC #### [facility] [address] [place] [address] Ursula Neda Erythrocyte distribution width (RBC) [Ratio] 14.0 % Normal 11.0-15.0 [facility] Comment on above: Performed By: #### C BC #### [facility] [address] [place] [address] Ursula Neda Hematocrit (Bld) [Volume fraction] 41.8 % Normal 36.0-48.0 [facility] Comment on above: Performed By: #### C BC #### [facility] [address] [place] [address] Ursula Neda Hemoglobin (Bld) [Mass/Vol] 13.1 g/dL Normal 12.0-16.0 [facility] Comment on above: Performed By: #### C BC #### [facility] [address] [place] [address] Ursula Neda IG # 0.02 10e3/ul Normal 0.00-0.03 [facility] Comment on above: Performed By: #### C BC #### [facility] [address] [place] [address] Ursula Neda IG % 0.3 % Normal 0.0-0.5 [facility] Comment on above: Performed By: #### C BC #### [facility] [address] [place] [address] Ursula Neda LYMPH # 2.2 103/ul Normal 1.2-3.8 [facility] Comment on above: Performed By: #### C BC #### [facility] [address] [place] [address] Ursula Neda Lymphocytes/100 WBC (Bld) 38.5 % Normal 20.5-60.0 [facility] Comment on above: Performed By: #### C BC #### [facility] [address] [place], [place] [address] Ursula Neda MANUAL DIFF REQ NO Normal [facility] Comment on above: Performed By: #### C BC #### [facility] [address] [place], [place] [address] Ursula Neda MCH (RBC) [Entitic mass] 27.8 pg Normal 26.7-34.0 [facility] Comment on above: Performed By: #### C BC #### [facility] [address] [place], [place] [address] Ursulasilvia Red MCHC (RBC) [Mass/Vol] 31.3 g/dL Normal 29.9-35.2 [facility] Comment on above: Performed By: #### C BC #### [facility] [address] [place], [place] [address] Ursula Neda MCV (RBC) [Entitic vol] 88.6 fL Normal 81.0-99.0 [facility] Comment on above: Performed By: #### C BC #### [facility] [address] [place], [place] [address] Ursula Neda MONO # 0.4 103/ul Normal 0.3-0.8 [facility] Comment on above: Performed By: #### C BC #### [facility] [address] [place], [place] [address] Ursula Neda Monocytes/100 WBC (Bld) 6.7 % Normal 1.7-12.0 [facility] Comment on above: Performed By: #### C BC #### [facility] [address] [place], [place] [address] Ursula Neda NEUT # 3.0 103/ul Normal 1.4-6.5 [facility] Comment on above: Performed By: #### C BC #### [facility] [address] [place], [place] [address] Ursula Neda Neutrophils/100 WBC (Bld) 52.3 % Normal 43.0-75.0 [facility] Comment on above: Performed By: #### C BC #### [facility] [address] [place], [place] [address] Ursula Red Platelet mean volume (Bld) [Entitic vol] 10.3 fL Normal 9.5-13.5 [facility] Comment on above: Performed By: #### C BC #### [facility] [address] [place], [place] [address] Ursulasilvia Amayaen PLT 239 103/ul Normal 150-450 [facility] Comment on above: Performed By: #### C BC #### [facility] [address] [place] [address] Ursula Amayaen RBC 4.72 106/ul Normal 4.20-5.40 [facility] Comment on above: Performed By: #### C BC #### [facility] [address] [place] [address] Ursulasilvia Amayaen WBC 5.8 103/ul Normal 4.0-11.0 [facility] Comment on above: Performed By: #### C BC #### [facility] [address] [place], [place] [address] rUsula Red FERRITINon 11-19-2020 Ferritin [Mass/Vol] 20.0 ng/mL Normal 11.1-264.0 [facility] Comment on above: Performed By: #### V ITAE #### [facility] [address] [place], [place] [address] Ursula Red FREE T4on 11-19-2020 Free T4 [Mass/Vol] 0.85 ng/dL Normal 0.78-2.19 [facility] Comment on above: Performed By: #### V ITAE #### [facility] [address] [place], [place] [address] Ursula Neda IRON AND TIBCon 11-19-2020 % SATURATION 33.8 % Normal [facility] Comment on above: Performed By: #### V ITAE #### [facility] [address] [place], [place] [address] Ursula Neda Iron [Mass/Vol] 114.0 ug/dL Normal 37.0-170.0 [facility] Comment on above: Performed By: #### V ITAE #### [facility] [address] [place] [address] Ursula Neda TIBC DIRECT 337.0 ug/dL Normal 261.0-497. 0 [facility] Comment on above: Performed By: #### V ITAE #### [facility] [address] [place], [place] [address] Ursulasilvia Amayaen PROF 14(COMP METB)on 021 Albumin [Mass/Vol] 3.7 g/dL Normal 3.5-5.0 [facility] Comment on above: Performed By: #### C DEBBIE, TSH #### [facility] [address] [place], [place] [address] Ursula Neda Albumin/Globulin [Mass ratio] 1.1 {ratio} Normal [facility] Comment on above: Performed By: #### C DEBBIE, TSH #### [facility] [address] [place], [place] [address] Ursula Neda ALP [Catalytic activity/Vol] 221 U/L Critically high 38-126 [facility] Comment on above: Performed By: #### C DEBBIE, TSH #### [facility] [address] [place], [place] [address] Ursula Neda ALT [Catalytic activity/Vol] 23 U/L Normal 9-52 [facility] Comment on above: Performed By: #### C DEBBIE, TSH #### [facility] [address] [place], [place] [address] Ursula Neda Anion gap [Moles/Vol] 16.3 mmol/L Normal [facility] Comment on above: Performed By: #### C DEBBIE, TSH #### [facility] [address] [place], [place] [address] Ursula Neda AST [Catalytic activity/Vol] 19 U/L Normal 14-36 [facility] Comment on above: Performed By: #### C DEBBIE, TSH #### [facility] [address] [place], [place] [address] Ursula Neda Bilirubin [Mass/Vol] 0.7 mg/dL Normal 0.2-1.3 [facility] Comment on above: Performed By: #### C DEBBIE, TSH #### [facility] [address] [place] [address] Ursula Neda Calcium [Mass/Vol] 8.2 mg/dL Critically low 8.4-10.2 Th e [facility] Comment on above: Performed By: #### C MP, TSH #### [facility] [address] [place] [address] Ursula Neda Chloride [Moles/Vol] 110 mmol/L Critically high 98-107 [facility] Comment on above: Performed By: #### C MP, TSH #### [facility] [address] [place] [address] Ursula Neda CO2 [Moles/Vol] 22.2 mmol/L Normal 22.0-30.0 [facility] Comment on above: Performed By: #### C MP, TSH #### [facility] [address] [place] [address] Ursula Neda Creatinine [Mass/Vol] 0.80 mg/dL Normal 0.52-1.04 [facility] Comment on above: Performed By: #### C MP, TSH #### [facility] [address] [place] [address] Ursula Neda EGFR-AF [place]ORE[place] >60 Normal >=60 [facility] Comment on above: Performed By: #### C MP, TSH #### [facility] [address] [place] [address] Ursula Neda EGFR-NON AF [place] >60 Normal >=60 [facility] Comment on above: Performed By: #### C MP, TSH #### [facility] [address] [place] [address] Ursula Neda Globulin (S) [Mass/Vol] 3.3 g/dL Normal [facility] Comment on above: Performed By: #### C MP, TSH #### [facility] [address] [place] [address] Ursula Neda Glucose [Mass/Vol] 88 mg/dL Normal 74-106 [facility] Comment on above: Performed By: #### C MP, TSH #### [facility] [address] [place] [address] Ursula Neda Potassium [Moles/Vol] 3.5 mmol/L Normal 3.4-5.0 [facility] Comment on above: Performed By: #### C MP, TSH #### [facility] [address] [place], [place] [address] Ursula Neda Protein [Mass/Vol] 7.0 g/dL Normal 6.1-8.2 [facility] Comment on above: Performed By: #### C MP, TSH #### [facility] [address] [place], [place] [address] Ursula Neda Sodium [Moles/Vol] 145 mmol/L Normal 137-145 [facility] Comment on above: Performed By: #### C MP, TSH #### [facility] [address] [place], [place] [address] Ursula Neda Urea nitrogen [Mass/Vol] 16.0 mg/dL Normal 7.0-17.0 [facility] Comment on above: Performed By: #### C MP, TSH #### [facility] [address] [place] [address] Ursula Neda Urea nitrogen/Creatinine [Mass ratio] 20.0 mg/mg Normal [facility] Comment on above: Performed By: #### C MP, TSH #### [facility] [address] [place] [address] Ursula Neda TSHon 11-19-2020 TSH 2.236 uIU/mL Normal 0.470-4.68 0 [facility] Comment on above: Performed By: #### C MP, TSH #### [facility] [address] [place] [address] Ursula Neda TSH RANGE SEE BELOW Normal [facility] Comment on above: Result Comment: <0.3 4 UIU/ml HYPERTHYROID 0.34-5.60 UIU/ml EUTHYROID >5.60 UIU/ml HYPOTHYROID Performed By: #### C MP, TSH #### [facility] [address] [place] [address] Ursula Neda VITAMIN B12on 11-19-2020 Cobalamin (Vitamin B12) [Mass/Vol] 483.0 pg/mL Normal 239.0-931. 0 [facility] Comment on above: Performed By: #### V ITAE #### [facility] [address] [place], [place] [address] Ursula Red VITAMIN D 25 OHon 11-19-2020 VIT D 25-OH 25.4 ng/mL Normal [facility] Comment on above: Performed By: #### V ITB12, VITAD, FERR, FT4, FETIBC #### [facility] [address] [place] [id number] Ursula Red VIT D RANGES SEE BELOW Normal [facility] Comment on above: Result Comment: <20 ng/mL Vit D deficient 20 - <30 ng/mL Vit D insufficient 30 - 100 ng/mL Vit D sufficient >100 ng/mL Potential Toxicity Performed By: #### V ITB12, VITAD, FERR, FT4, FETIBC #### [facility] [address] [place], [place] [address] Ursula Red [employer] - General Officeon 0 08-02-2018 [employer] General Office From: Lizzy Saldivar To: Tammy LANDIS, Gerard Sanches; [facility]; Sent: 08/02/2018 12:53:59 EDT Subject: refill On hold pending signature Order:gabapentin (gabapentin 300 mg Cap) 2 cap(s) Oral TID Qty: 180 cap(s) Refills: 0 Substitutions Allowed Route To Pharmacy - [facility]/pharmacy #[id number] patient left voicemail to request refill of gabapentin last office visit 06/24/18 no follow up scheduled pdfCD:[id number] hCutwd7REYjDF4JXJSuPKf3U00e MTkvRSAy RruoPn4QKSRzATO4Tof8NC3BQWc uSCd1KSDfEI3+Qj4nxdZvWooDDI AgICAgICAgICAgICAgICAg FFlxLWPiMV8gmq51NA3WHYSmFXZ WEINoekc3Y8QhqZJwhpOmPK3Lth FwzSW1i1AgVRB+Iw7AlHb5 ZXIvRmxhdGVEZWNvZGUvSURbPER CRDJCREMxOUQzQTgyNjZDRjgzMD n1Ajs4JDQQIGMVFctUAuU7 AAIKPdUzSlM7KFR9XHMaSYBqDbA BKMN8JNEJRR4uY1vrSIE8SlJ4NF Y4CL0JjlUrQCO9WOLrPs0W WQ5ieVwrLLJtMJDqguK1Ohi8Aj1 Vp506KOG3RAMoZx8PnIrbYEMsX2 J6pVRfZAYzCe7YEgNiNxRp XT4+g3ZzDHNcLXzl1fLmDMPmCQD e2mehET+PnR9Z7t2JAShGZn9DZo 3XHYF1PZRYvTdQzIZSfP8k dHGBwf1fxE5RGEsRaWRpARSkPSo AZDEwMFJO/Ge8/EzjfEE3ao9oNP jlayIhcFPxCP6MRF5ja0Zg RRY0ZTE0pEUsLi8LTT4TFPEDB0L ZJiCjHVJpWHUFMaXzMUKax4FiKH y6N1XpkWMoti5YgDH1OZCo B77yYK4OSKN7Ky4VUO0ybZjzRSS 8T4EdTEQ6Pt1lvPZaWM0YGxniWx NnARQdmLikIIjDoxs9NIHP SxjTdnmTUMyO2rKk9G6uCNZEDsl Qk1buWsRmyfpTtMgbZ5SZC6j11V yYewZxUhx5oyHvR0X5HG1n 5XHCuqsYP4HxMYsJCiWyOAkLLg8 U0S63TDgKWUPE2geODVJHq431iO Og9VrZ3luXwdIShqPr5DJj KRVP3RTq2aiJGCP/DECADQplbmR xyPXvWZ8QPF6vd1LmVTW5NZPoq2 NvQEm9X92rtERqTDEhEOHf VSBrTu2CpHPgHHE8zF5wYvZ4SRF oVh0AtFFFAQ58kFrmH3PhA5XMZF uodHIyD40qO45vgJ3qO8Wd Q2HxEUB2UBSuYo5JeXOyP1FxtHU il9zpKholm2QwCQJdCpIdWQ5vVC L4VI2HeCZLaG9hm1uzfEZ9 AU7JvWQiD6rbAU57BYlxvOR3HV8 XuU9Tm3DaRBSlPE3WvqxceJTwMI GjR7NfoCSitH5+Pe8RRT8n x9SzGBV6KGLiq5BaOYq8E1FvufB lahAaTQUuTLElEy1Lvs4lOa03Dy QnCJS1SDYyLUvhUKj8DtV6 IR9UOMSuWPOlfVcfUMIrRRLfYvf 4EQD3MO4wNI2aQHUrOD21CWU8TC ImLk0WYBRdcFQiQVDsFoCn FTBOP4OjyPH1CISaF9X3aFXaLTK nZT4+HNRfZP2kfs8aWPQeQK3ggh 78TA8JaAq5SEYsGzqybSTI BBPmFVTgBjlpv9OdYIH8K8opzgz 7kCXcKPWoHlRwFW2YzSUeV57vgc N0bT4+a0MpDHAnSQhm8obR XUvDMBSG/7j3N5Zsm+1gDNzmsCB nkDKW1CWh1jt7Z5rCmR3zXtOAx1 d7k/OkNO/5owXRM5mSy2HH VxJHKfAUROxwBNLtRARxwkFQSMQ EXNSIdwDqzBuMVNLw1w1IkNfnNZ bWLTXekSvMNKSghWpEKq1I 0ZjmgxronLdorsxUFq2Z4XwjxgQ XVYOZGOLAD1GBMOEQ28ocCs3QU2 xJZLEqXKY4PrPFF5/N0WRC Wd1DySM6Hqj2vpn4mnPWojR0Pry kfBzXGJycN47uX5uXJNthJXnha5 gbZSAOLHSQCeAhdSaB8+A3 qVaBelg8ExMc1cVHH5XimzBVfi4 Yn7Gd5zu2R+d3htKuvw3tTegpp+ qqxFFhd7cp0sVF5t5Rc05R qo76jpZc9jXkmo9aOUrKdxhcu20 VEaPjTw23svB4Z3D6oscycqgBjj 9Wq3w2g1SYL/N+1IT9KOL3 x06oS0s087s+b7vxTvNViHn5sTV Fk8dJ3r/y1SUSWFVhHxnLEdOfOC I2wqYccP1nsaZiYtxEFmUy QPEkFkzMRVjhIwnyiMWxS6ZjIZV nCUVfb9WdR5fhkfp7yYTxNTzyVf 2yeQStGP9GQlgD1ToPw+I4 EL3zK/b9C1DZHEnruGsRQEnpxUT JBHJ9jKDsPzQRyFc4x28/35aNsX ONbA1tzIzzSCuk/sm6g0yC RQFbNAcbiakk0tMvk4HhkAn7fhh CN5X8jJdggZkHqR4L3wS32u1Yb/ B5Wvkny/0I8++63jg6Buw9 VltFAkqVD6ruxyg2kNBdZGB2cUT ualQGHoAwA2ljLnGN9pEAcRU/ra m5OOlYKqHvXfept8VHv1i1 lpgqW6o6JRLHIyoK1R7bsTZIuRn IlCQPht24h6OlaDpnwn3Ox3IPTa x0Giv8In9feX4kcpKnMUkK GiX4o44Ijof9wSEBkhL+yw2yN0j F++G1P78dJRiEQRYGCu2B1+TZRj S1GVoNvF9JJqyfvfU3kxwc 3elslsVhK0/vYP2JHVCqJBymOGW 9jIEr5a/N2p7N+Zb3xkSTweizPX l1HI8GLgItuBtiQJFkbZL4 lAH6bFlzdpxiLP1WPaIPw9CX0cc 5b8uSa3KUKw42Szb+AmqdmwaW+t fXVlGr1JJseOnmQPPIQk7v Aa4wbfXnhsUvuuM8g/74/uscZnO 9JB3Sp47ntfM4FfBUnTrydhG1dV VbjWRmvXkGrS7V+qX5hT2O C/Ij5eYhFCNNPHDSHk9PgPBVTtm Q86L4mUMdeBvw2pYa2yer5UWyqs UpDuvY0Sytyvh2C0C3Kj28 DX8sRcnMauVGbApzrFp7C7XTY68 gfVO4wKPnkSSS+shEtVutFrlWq3 wkI90P5Xdj3aEognwWgjK6 MAq94FTy8CxD/ZNLHX+o1o8NQre LaLkox/txzQUfMj9ZWlaH3rbPNR DXvHQJKYsl5p76r4tnFsxQ 3RQDh6GR7iXxnS2Wko6isvq5hiN ipzYoyPcLKu91D45hR0OEY+w79X TBgSqnD8Zy3mwzUXjMxvTU KuNVI9jmYs9TrY/KEIWO0s4LQaw BoyvikVP0JsQC1baFqIgcqSWmOJ 1MZkOYjmZ/VrnrQPGysbjn liTasVhJOHI2A3p1ezVLoxE+4iJ SmvhYOPhBV4+guo0PnihqqHHeuC WVH3ipMEtRvRbn95yHLqxF 89Hkvj+vUFzjO1f6/bsiYqPAC0W gPspXE2qdKyuzOT+zgXNRMkAKbp /APsLexN/ZG0KFqbJsan/I 8x4KOiHMSf5Ehols4CvT9Klr7Qa qwjri3x0cRqyl8aJAPq/Phw8V99 gnZP/sovjelKiCYoKQw9ky TNRmxAxKxDr68cPmimrxRZ+ZJIL kfQB0pdIh7LiFXk1Bvjau4SDEoo Yfqmy3AoPjfij9z0ICCpRa kwOroFTkPRfxNtItMXQLM4dZWEC GjDAEAIYEPbVKn8MjxOs939UWNK 22y7DAf1yZvVLStLZY81tP 8vXbQTMtz8b0lSu7jouZszGqGHP FASgN5K1Z4owwm7VCpyJsyEhoJ9 DSyZybXM6E8mvqU5MuKZHc T+e2oXAdoOIMXbwa8mcK942iqSh 1J73dNOOX2MabWdmT5H+4LTyiq+ 9R4KMtVp19kZYcpwctpsVD d1jiX+BDk0mK9/WLyTJTckeyJgy 9xUzPhGkfdwanDCjk4C0fsJR5Yp G2BSmipjVgxHKhPH1DJE7k z9YdYMKcUDXku8XbJMg0O4OkwGJ LINIZm04oe62ukxJfFC7Pm5mpoe UbQELhX1ZzklwcZSujGJnn DFMfg2QuLVEekOJ5IC8VjWNjOXJ oS99stE8hEK28JMgnF86vw3JtVK RfO08yjD9sgnBhEUF6E2Ni FXTdZ4QdciIjQW7+F8EpjQRodl3 AcZY1TCNvZ60hAH0LMHcqtAOkCb XgRESbT3KdRGy3Qw2YqER2 yJLsB8lcUBxtV0O5xJTqNA3yalJ xeF4EwXB9fSHhORK5Yu3ewAXpGS 4RKivC6Zr2edMXRLgWwWMu nnEcIf6GiCu7EZPdyPc2MYwdTdY MHFTVNlhWdj4gOxCQVKOAAX6s3c t2w1pIfre+r4p9/tMaq16r KgIAKINq+/h4dtfZDVjpNUfQo+x N8u56E9prVagycghTRxV0Svu+W6 Msy1WjhMNi96xN4dRpV1O8 zFuxo/HmNU2OcsND6TuTkCFwiDi vXy0T9+sB1qOHWPL38dA3/jizti tRIqXADKmVzfT59/c6R9tS f+BQQnMuutwp0/O4kWV7OmVX59j w5QwKRhmbR6a10/noaG+GiLXZdX YO9hpv25Cyfy5d60MFukIQ gW5sHuhOCRTbFX+C14nErAxYeiD 4GfUl5fQObEgHz4Ts7ehwBeG/ek +YbdkkaqDIH2pP6ba3fxbS 6YbIAngcPRF+LrKZen/BComp5bI hLDJAqZbX3kPxhU9VdYzolgEuHV Gp7k9+zWWhzWrg74gOVDqb QpLVbj6d67be79FRXHAFx7Cfl7D x+IEgyamdJPsTeUx7uVBNGShczc K0Oek9hvRvpVidfS7Iur2R Ulpyf7M3oa08w8oMpaOadIqjYta Y2fT8dFCMOik2yZVQwdauhKQzu6 cl+pwXswVQ6Bu/vlmsXErb xiGHLgwUUEdj1bRgIEf0RGVVvEa mTQFcZSFXiu7LEfH9J2XE6ITDKq BnVgYlJJpYARWbClCptX3O qLGh7BWCEoRhkLZxwrlpErHXkvk 6VdOQkbnnRD+nrbkXwVweXa0bVa 5dlHaZpdOOnrBbqAX5ePvu 9yQDPP8LV+W5gcjH6H7XJ8gWWkH VzWUyNPiBYo1SVZRnrZ5GUCMM49 YlzSnWBrGOwhZRLEOZi8eI eC8walkRUen9tm6hoEjPTou4xcw 6XoNdi5l+eCRcQ3deGGyCZoAhay svxBpidDqp6mtbA0ctCPPb /w6xsoPyozXU5L8G1dLTbWg5COs g8C81yMKmbw65fgGhVEAVZeu22N ql3PuU4EGU1bEF2wood/IF 3DLbC1CFP0MQAhXbOVK0nkWnyS0 lbmRvYmoNMjMgMCBvYmoNPDwvQm e8f8FtszAdmTFucnKkwFC0 X5GtsO5mK5WqA8IfKTE1lYLbOwr NZ2ZyD34mLXEiaa4gFEwgZtm5f4 RxgeEnpNJdflNfwJY0Q4Bl mK6kfeNrS8ZijPGkqwYmSZHrLM9 OsoEcaUC0y6DcDJH+Ez3JdRt1VE IvRmxhdGVEZWNvZGUvSGVp D4g5ODFsF9djsbo0xNTeATKfC7M KDRGdZJWeREYyXr1WvMP4bMCoQ9 duGIbjD3Q4uPFyRE1aicPu wU2IoYB4sZXcCDB5Fv4irFXhPW9 ZNrmU1e6HfKWZCNtj9mCBsoYbOP SRkl5XnUmiaUFMTpkFvYc3 OkRMLMUyE9Tpp3hEQbxmYG0SUIj Tyexd2E0rlaBDcarDcaVAUoCDIl RtTlQJ9vBW2esn4+4ky2S9 Xq/ttR27/19Va+yd/WbmWz8+L47 VVVTPROMQlSmmnWajuCwchX0Hhl YAAAAAAOAXo/8PHjyoqmqt XvHLzufpg5ihBdvu1KTYOm9/PzA wnTp98htPVyshjZmFtuPDxWZo15 6kv4z1h0TtUFqMaVGklsGY vK7n3jy0KERbNbdcGkg2nDgs8/3 XlCQQkD2IUsxgIjb8u1mb+f5Hne mi/s1U0fQofrWYePzc5daE EdZ52xyM4+mAM5kye1h8Ioc8hmR fbX65/tv+5omiMmW3b81F1+jD7e d9bfZR85dM4AN1+XD16VLK tzFsHm740SK1i7q/PSuWWiQxe45 +QjmiMV8ijSgdEM1Px/pGqY25qt i++hmtl64hqke6hRH5iELI uvmwKCyyl4MCSZIVrEZzcui2fpZ 0LcwNaET5HgAI5chwTQ+KDRjsBP WDz4TnYV4P/oOuOsxnJSri irwSKtOgFvm74rJTbpMhwIwZPhO p84fVTRlEEHHOFt4D1eOJeZHcfz a37X1eJUKKu2hbhJPSG0hi A1uoWBYfWWu95Rgh5y1Xbpf7Kpw oKkL4I1t/yPmGDMQm9cpfvYzsI+ nUH/x9VvsUcrP/W0JplAw8 rGWWuQrS+0GupiNrND4nITgq8D+ 5jIXxQIWoP7i4xc6rqXP7oxfjs3 J98VynPcE2M0hs4JdfSfcv Q9SUYLUdqAeHJ3DHNELGmUU0xJU TAr9pLRBCkEemH/VDzuciymLP61 dSrWRDoK3lPwsjktPRYDVA RnUq1sTUVvvG49Gqkjbf85PlWa+ yUEjPGiycjpgvfGlNTWm6+bJWya Tod5UgmFd7Ib9c1DYRJR2+ mJjSSKVXxwIrUAvwvz3W3e46Huk jZOhV3+ufI+SAqqrpTWbnbJSFN7 lD4avXund6l6Xtndzps3Ch 3WtTyegrvfoC6wi/kpMYhg7nbEb 1T0Dc4ePOxbBDAGClmJ9Kdf6JPr v4DeCS6aTpJYmImhG1nWWn Yg3tf4InRpGXMqOHZdGqouXT4ds Z5XzkJxJIK8pzJBDHuDGxvxmBek Aw3cFTs73SSWdULXILIPHl 7LWABRDENHMOiAzWDKKATF7GEZ6 UWEPRAL332dRPBLCbsw48ir32CX ThD5C13pWT5P320YGwX1cc xJ1yhqRL7nZJsKkOhllHVpGpjKh Ow74sRxPGKPYDCRTzOycZE4+Tex SBCjKQ7TUVowDt21dkSUy3 tBiIzSEWrfM0VkUOux5wVmNNQIX BZcwdpu54+bEcA383BIHm6J3BA3 AXJ9d3XcNG/Li3Ww2TG65v sNix3LT9gn6VGw3fOFXFhjjfEH6 isLs5fyy9symxL6/SNOz+p0+fvn WtBj72xbJfoDnQ1YSis1mB 7ObxLEBREIHKAI0xBOexb3ph/Pn n3wy2AtHzt7jjCDTbwc2MeLefs1 TVQLSMvI23H2DyDzSkm7Bj 3PrWffE+kIFO6g7JaWnG9qZJTw5 V9KI/JbBOp8a3eXPcwupEXJM01e qk0S9QXStNMQRLoUVQioUP dS4++870iotNiuko0104sZhJGrw BhAsXLojz6+HTgvCar5bD6bE0cR uLBvW/s5z5fDU469t3jJzx Z89S+R4iAbGNTFLXwwyJdcmMMie vVqk+Em1YLpHnf9/U0HncpyvVN4 2KE+fiZL/9h60Od+7cEf1n XzYDso2iX6RPf/BdI5f/TK7YESD RuG0nUX6/NjYmPtQujI+FG90DzZ CM+Mi7OB8/GSFpMljDh3PS MhQoc8zNSKHCxq57CJ6haT40DM8 ev3/kMx4C6iJKHu3x3hM7ObZSCE lLQWGFyQ7uSV6ty/NWdr49 NbgoYg6sluhIAtc6101P3NtlDoA o8i12Z/d9aaV6o3+c30IuGzebis ZVCIXZBY44MzWOFQRFQB1O PO9OIDKNDV4FxkVUATPY7S/U8QA LfJPeBBGBWdwQszXoC5ek9fPW8V vExn1vv+jP5zMkGF0hyd5L wirjGPjFb8ZWyGNA8wAvXpEpSpq AVQJhivxGg6xE7+spBeTcYFtpc4 CWULjYg4NcM7SPoYA1Pzvt 9drxRst1zOsjym2SkB5zh1aW1jY BQKGoX9JUgIsPTEF5nkSsTqrg9P IuqMpL6BC4U7TKcO1dKS+a GkCtTXdl6xGZuiS6mahOwAU1EJj QNKpcsFnYVWcQXSAIOZSgz75P7w OI6MKJyHSyj2atSSC80cbw 66/StVfmQhkdWC9fTF5RyBELqkl SQzPd/E+4oecqUsDLU6LTD9NSba xnkszjFVPlrzKhdq/lywFf 5NxBI8TiFp8Qpc625ksfRFP8DO0 q8SP0mJKx3nKA8/4X139XFnfDVC c9VU6MDUql/NDUZ3UX77ho jlUXhqfdYjpwi0rwcGMBozbgozB 11QsCOXDEzSFSq7+J6yqS6101Fc pGWrHbOflgeIXOhSP9OIaP gcL5Wvi6oKiKw3IxshvEIGnml7J T/q3ItcOCWK68o097m8aAyGWKQc +kVguv/rj/y6VLwoo+On1e 6qHq6d35yC76C+Umr4j1iT4vw6n yo5lz+0UK54J4MynFcBlaZStUYP i3wF+Qae0O5vLbdJDb+A/D ftf0HNncplAniVOsXS1LKQ1rv0K oJZK6JZYfg2VzWOg4F2ZtcRTSOM LPj60oo22htiWcKQ5Qj4jm kgGxEQIiQ8YrotniTOerRZcgINN ge7IaJYXceRJ1IF3QcTGoXRXwM0 7xmJ0sAX65MNwcE78tj4Ww ILAnG37syS4igwLrSBW6O8ZpVIN aZ9ZirePbQN7+J9HciIAfaa9MwZ F0ELOpJ45sKL4ROImebGGo MKccZ5jrsgk6kLRbSPT9Q4I0CeM 4xITxCI8oF5OnOLjtRE2BY6GuAR A8N8haQYKhFADlECN+PnN0 tiKjoK1KfMSg9C9y35Keu0AAAXU U6JI11nL8zVQL4XwB7kUD3YauUu +sW3fTfXnyg1MBL2vQHEXy sizTMklRJvXB/F7jGlIavYERA6W pfzUBMlx9/JLsc95YJIUto+OJ/b u3v/r9q9zdqmv10aRPJ0X6 uOP7bSB1fMO6tYI6dIH9cKD0jCS 4jIY9zGN1mZJ0jNR8eSS3hOT5xJ F2fQT5oZZ3pSY1yYaR1V/P 2G13M1DCtnxPy8fdt8sp+b4n6jS 0roPRnnQnOMz72paGfXkk/cLDPi msdA4qcGuk0zo8FdVTQMyX WX/0IpEbfl65+sC3/pWNqXYuUXm 62YfISv14ZBFf5m6KY6V2nZzeGy yozpIOn4ebAQ6sM1iST/ba tZP7dIuz5l+EjAry8Y4/y3j51su vu58+fuCb/8rUTk/L+jxg4NiHko q7Vq0Bk8/m34PXfVzr7epa E2tBkfEReuftx+uoT02Cv3hk4EJ 2e4ocC13+33L2+PIjislG9SEB1E DI6KBE2ZED2EGQ6GPK1BXG 8HTG4YYS7CFH8KEG7PFN8WYJ4ZV J2NGL2bF5S15p0f9Hn2LuJiE8u+ LANSsH6/rQ2lFe6fthqwr7 k9DhFb4k9htdIh1duJd/02ant3v zm70GK1o3wmoxV/7p+FEfP9Q2Ms xUs5iXL82E+HZ4V5KOAYGz yyPp6fnMLM/3VvOjle/bTqrqcNY 1Y6xyWHioD5z5i1Y1GjcyT6dLkR q5GrEVybO9L2TS51cvIwoE tUMKtUMKtUMKtUMKtUMKtUMKtUM KtUMKtUMKtUMKtUMKtUMKtUMKtU MKtUMKtVPjyHMjOQ+189qR 83XeMsLg3PKU4QFFzGjBnHRTGJH 1nm3ABXXl//DXn6+9fQ1hqb6u/K cxpnIvo9kohfjuAlpW1P8t mdXOC18CqQfidD1BTuIoV7mgbpj wv7l+/2lR5dliBBlt43wF42efAv 64AHL51vt1c1smEacsFH7+ V/do+GN4rJtUzubNkjJl4OKbToH F7Yo9N2ovoqunvu1++1zxaxYo31 mElaL0CjNm8lvW4a0ao5pz hdohhdohhdohhdohhdohhdohhdo hhdohhdohhdohhdohhdohhdohhd gidypbac6W0SBt4GiknbZw 5d9yYdY75sXw5pd2qKV6ixgml9l TUfWXaOwh9FNeSD+l7gtRDST170 qGaQZQyZrKGBG1I/zetEDr ttvLL3+/mFRV/9CLn9+p2VvSlDW TKKGPMdVuCuUQhhouyfiMqXaGMN SuGfUQ7XCKDj6Q2QhkIlfk UqgdUqgdUqgdUqgdUqgdUqgdUqg dUqgdUqgdUqgdUqgdUqgdUqgdUq o5qqCJJGkhxbpHhpux3wUm 4v7gxP0RJFbvqZIBKtP9sTPJnPa iFYGz3yCGNLvDyMvB5w5VP3K3ST U8MTX3IRK9JBF9BBZ7YSU4 QFP2BGM8QMB9UEA8DOZ8XEH2WKC 6FLI6RGA6LXMTMWiZch+0GkQ5P/ gcDD3o3Z3NLxGgvxblwfez arpji/MPfjzWAS/+w1kbU+0Xr7x lgbd3gHFVehhmgM50c7lh6cNhli X61SCcXIsBF//hrKgdUqgd UqgdUqgdUqgdUqgdUqgdUqgdUqg dUqgdUqgdUqgdUqgdUqgdUqgdUq h5YZQs5oydGqKoGMe2+A9n Vl3HZs57tOh4ibI9spURY4g3P2c rMNPlMey5aDp2SkLUafcG3LEERS zyl7R63570Gr5Lal1rIVSg M7hqI7TwFZFNZ0HS++ldY+0HTlv jCZai50lEymKAR5l8KgCYD84taf DX029oZVskMT/RJHp8Npig cqkdUqgdUqgdUqgdUqgdUqgdUqg dUqgdUqgdUqgdUqgdUqgdUqgdUq zzXvBN5uEdEiQgeq30zGf3 +sOt4Zgf9RgE6ceyxjn3oNPv6f7 fGogvjgl5lbBNrxtCj8560hm7Jh US+liraPG8rZqa/8lDMLVD CrVDCrVDCrVDCrVDCrVDCrVDCrV DCrVDCrVDCrVDCrVDCrVDCrVDCr DKUeQEEoQTEtIGks2W5cm5 Jt9NXX7ib5ZbESSeXVHhWX0bug0 yDGVhFU3mip13TO2WuKDqSKRaJ0 7uvA0vWV97TNqfT95xz0DJ mWZeIA5WURQfR8KPP9OuFKXpb1L rVWXsnKQ8WQ7DdPYuLPQyM14usQ 6aVL97HXixV23kr6AmNXZd N90fkO0ijrAwSDL1G3OuAJQeG4X vciAxND4+Y9SkpIOluc0GcBS2MR EpT69lYP7ACAfcxDDwFAyi D2facfq6lARsTMOlOF1HNBFwpdP tAFXbFQKjC0DxvBdxPA8EoUIyVR 2FaMPuM3fNClzpQ8DsB9bo dGggMTAwNT4+t5KlOJGwQPq3Fv3 el4kt038k5AJ6ejUjD4z1jKphHM RsPxPNZaqZGvzNgMqSV6ZT /zCnHJczkEWHjtSWvKcMvBolr6s isbmF/UGZcOR0wZmSqbVBUZzhHn 5KKNzN/dLTPrx8pcyS5GFf RyTZWiUfrsj4u/L1z754H39omYC rDb10BLwiaaUg3trbjNZ1AJ5706 xPEcTFZYMbEu52162j2s64 37qv3M8ULxbt2ZTkjM6gKKXITFo 86T7bjnqcuVl6uwUysiSh2V//9E /x3j6qoty7feHf7h50hMi4 VkOXeNSGidcChKiQX7bzrsW4BDy khBDPWHNnOYY4HHUTqW1Q0tVWUM Z0A69OAUNX3r/tHB+6BXZ0 vCX3jypw3KrcE4Rhve0u4qNcGsA TEw0/EWCBMSWfwZpBW9zb9+vrs2 Nj0WHdIIk74Rn0mZuqFXBA DPaj9a8Ra85js2p729hNP1hDSnu gQx7goXzs14kbLIgV2Rn0Mfu4zi O2HZIOC763k/zvL8Egvyk3 pZW0NL+pq7HyUsmRV1kDaNS+4L7 j4+UTUxSEMIHuQW93nl8tWdrYjw pOc1gBthBzVJ65pHw3BCf1 nc/btHMHaizCL0R6zuj4hNFnNJi nJfoNAOe7fPd/Ym95bNjq4Gn7Zs dH6w/uqzWhYzXgwgAAAABn OKlfn2sk1HI15IGZizKrli0ynHk JMxjw3rePvZC6cnx4t/Wqwhasb9 889iwcvdjA6GV60HG2ZU22 dIJm56cDojb0L5D5Q/cNHQsAAAA 43+qeHx+5w1xYDEZJs4DdGN6h1+ qMjjnGscvk3zfbgcub1Sy+ zWqsf57MHtEHNF9OCds0EtzJfaB g2JI2mNuVQBxf2d1ZrCSC9Vu5XP AAAEAbaUCO7+jlMibG6mKf i3C9JXlo6+qElTRi0Vf/f//U1JQ w45WiK4S4Uk0/ONOqb8Fgx6C9V7 rZztRHLKWid216I2MN9dhT lc0Az5T9Grh8ZkS2Ryw4v7rZexu Lea6dhWeziB3ISrDKcJQw9oE5cT 1k9MKDGNFD6092hp1ZzhrU 6+C8ng9pVDVXOAXuw27Wlcwylw8 LUFvq3dW2mxSFCciJDKI8puqvSi 8AAACgmcjxAAAAQPshxwMA YSUtkvxDJVQAoZ5hBLRAAAJ+jnL 8/zc1Co7PSy5TwLpoi6he0BE3aH ObAQAAGusox1+9pGQIPJk1 CPy6r6QCqi3B8c1uFwqcFyCbsz9 eKCJRRK996rwiDCiRpQIj3+CFL5 /wKC+32PYGc4ke3GplGyO6 Q2Wbj2P//9676U13Odq9/3//2y8 q/p31v/T+5RQbF/Rl663ljewts2 JNWuv+8190XgyV+tzdw026 05QtR9/W7XFZEhEooHovHVqpP/7 4kvmWgaygOg8NAyM1ODRfvomkhX q3AJN0kUTRZwVZGfnC/AJN vaJzn5L90J8srJhu/6dlKkyt5D0 //bDcjvruPHnqrSvjXc+m9KRxjM /JU83iNg9ve7sZURbjDrcb 5yU8DgzCph13urk8nbYp9WksfNd qVFKxtkcd4/cZO9RcD9D+tvcvUe roaGP8x27HsbfOxZ1o/Qtd IcknEvyJwGYo+h276BuPNmZf8q/ 5/Y+8+duP/9tvyu/VCjWP2/yGBY /41lNPPVEqXfjdf+X4Cw8e /OeHP/rhbs0MwrGADyU5UPmprzc UREtddk3MloCnYTvb3u7a9EV3c9 f2+dVBjgcAAADaDzkeAAAA vU63gusPaPzg7VCeUdJB4Fifqb8 X3EkJ3LafaA7y2ikeC4+ tLSzFa+40WgRUzzyDbIHG3 dzKM2DwcdrRLjb6IpwFpPu8QSrR 9nOa5GPfMz69fq40SVkQUBYkF0s XpGP6o32zGYVBPIYzq+Amf RSpEtIuuhtfufEoNTdPTj4XaQfb EDQ6K18TkiJ5+3qDmAAAAABXFnV fywEo7R4hdVDumz47j2+Tk 7Ap9odzXcd2m1qc8W1C6xUmzIBJ jlMtstY8l49jMh7ei0L50SEAGwU VQDo45Nj2LV5Q8mTRzSBog IVtdt7KdG9oG80O6sSSDQkbQXnZ 2Yl3t31fKEUXRnhW7gqdcId7QR+ 2LUglnJq9IwVETeOpOyYiM gWxBfjMpnW9WPYSGY1FbtZlsK6d Z4q78JJgW4POr2SEnxbFF9UuAYo Hwyie5khJ7t2XO62himal6 bvksDrGZO7MaHMUDm+kBAACAhou F85p7wjS856zrIblyEseNa/6gvh Zsos74+WcijQlGlg2Qf0kc Mukvn1adkUK4tNCcXOwgatff7ty e9xESLyDBZUXwRHRe5HkJpa6apo Tt1PKS34/BHlqdXVctoM2C Yv0HADRIGbdVrtg9FD4vow2372O CH6UzreyrXpgyF2bOcT7+oMuXL9 dkc9NtGRgc4j1UXFYyQ5T0 HjQ9u0cf+i3OK7KYLxZxfigV/jH fCCaO8GlbOaFGIG0zLb1tZV2iSz 6Orp/9Gj39QLRMwbd9o2cX nyez2b5qQzE+z8/KCwsLwcfRHO/ +0Wg9nj/5FipBwuw8PN/p3iAfVy 23+E43AtTRXUrUuSX04eDf txRwQoG97KZ4w5W0IlUkFhUanDW DTZpX/UBO9Rn2/MjIiOcPkF+/ft 6BpA4dTUon/wRJihJCB2DH aNpGI4AWK0v1tkiu2i7jOEGSPEy wav1rU418XfvyXai4pG6F0/ZMep fZL7lDiP3KQpiUgahg09rg rzKobN5dFfdpMbnNBSSwD3wYJm6 r/mg9nj+iRfcdzObcgti4C8n4Se ZLaAoNAAAAcEbUzvFukkl8 2qY9y6zmqFni5N1s26rY80A6Eb+ 3CmALXiGmNGtJ2FZ6yn2DtOLK7p tx47uwlmDKFUBSnYDw667E CSEGZCsR2IIWBDP2WvkGJQFV9Vf mGoWkC9Apy3RWm9rhdYYGS/NYKv steOuDTyVKpT/4j99++Hdv VdqrJWq+Y0jgtQRJZhn02WJBsWf DX1apW358gWt/99ITo0DVOh6eJ5 owTTBXVpiZLc7xk6zrsLmH uaesAzPr9mAzeEgFavmZbHkPo8B /Km1N+WOd3D1PVCEkyVAvju/81B 8e1DXEVo/+22+y7s5Ujji4 R5VbgRUb25O0sz7458YTf20+9lG l6ki1uPMOIoyOOInaGCvL3InvUd pFztvGZJvsfXw9tm+vjqNW 3r9//+MamSSaPVqvxMa67P1nJqn 2JIHYqPklJIagRXi3Q01MU07XP+ dWao3k9dU/rqKu9sp3DJRX 7WxfKwhsgrJ7aKqXjCuZxanHgxi H22tL9EHYWi78Cre0y8fl3TY0AJ lOskvvdB511KDFs1z/yy+/ fMp0Z9P9a84BZEJBLLJZnnGUUUA U9lMVVdRCUHsDVM9IEMOpU1FncY Df5cU320nR+uy4ntCTq2XW UcZ0VetRnt/DbLfBfDHsakKme13 nAesGYkE3rHBqmsL3aVAeuOGSmO 1NBULDJc6ob3/iy8buOIaI hVfVl5WZjFCjmQeYaqTV6OUJ4ph i7h988J4PiwNKAVtIYXBNHbswfD YtDjyugBKmS7xUOhJXfd2Y z7Rc5em/PHunwcEtQDn4L7aPhbm t3zDglXe8PYxksR5zHgtYSAJ8mX J7CcuQFeFfpAjPQxZcvgeh mjmzw7f7xF5Nu7hLLzQP8DMsGoN h3u9qJ5kWDbz4B0Wqvi7AZu+NHx fTRFX57b9pVeimtgxekwaz cu23/k/60sbcGKWRGIKtdzXa7Iq z0Pull6ofQy2GHWLmcj2OH6VjaF xOpeoQw2u4nnAv9Ww9xzHp y/YZ6exdT0YYn9t4UuSNXh0mO0P AZhgVwbcYGGOWA2DYtw91dOz10/ p14pgx0+fntVwlxwfbXIkq 9kKeyLmyl4tyselonzzHOzNiF3m nfc3QFRLoL+15MJdgb2kBB4bIuc DZbDb+aGcWmLVyHoT2etjC awuWqrWgjGvZ1/OHzz1/+F+v+/v 7WnB59/Lly67+KW9uL4WZirtWVc bLAspgWm14QLFnLScDap5w lzlnqbSxdB545+fKy9aXjldC5aQ gqmZUKT0Hx0IR7zoIHEVK4Vw2jf nJ1Rpyz4EXlyT3N9kOB67p OxNuksu53s0jHtSaLF9CagE+dyB dY0bifjuyUpQbVCkWEYtZGyrggr 0c8S8W8khmOxeHP6GUoOGn ju0JVIHFrUnx+CCcSTxCV1EgD6f +FQ4nTUx1oL/P5+Y9IrIXYHSXh9 g+HWCZMiEkckohnKhI98+/ xKRgqsQ7Z8nhF5edalss70Y+6q7 YuQ0ASNPAuut2fw+qZ5XLIL8KFn 8wxQJpp0bNtE5dydp3U6uP pf7yGbnw+Gw2e/s2vSVlr1zAOtk s88pju4RKwNZ7VOBk4VFcbu0hx9 7lEvyohXeMr8z1QYRUailZ EKLm5+tgOhXtAbY2OgbDPSBSslN dT4Zen9pqHUSGaO7Uhj/nR8Dq4o KkrbXqHy6YmsnwtTU8zgks bPp7U7nK865+hwoCmSjzaH17jWs lwudBFlJcDuNN6skp6el2dtkbLJ jXodXHiD+eRJ9E3WxQr0+O vrCwYE/ZRUZTGKHA6Qvu8sdmkuH vMf4bPnxjkvroj6HahiuE52xAqo t+EzU0T2DdiC2vhelg4F72 gf9pqmvg0xcoTzL217D7z01qg9W AAACgrFg5/kbgr5nqBuwzbHviU+ /v2Lg9TtGOYFDAavSHk0Z0 ffps03Z3OLEORJwi1lLPKkZDBP3 uyfhRNDELyecwDWZPKHy9ltT308 8/SEurbVlTMpcd1k10O+rW bw5EOW0fJ044wzqQuWFs7ijKAy1 dh9fYqsCCedb3qXo47h2c5mcM1I tCWYLlx6YCuvV//73DjsMq WAzRLr5t+WDK5gGjU/L+RK+bn07 vX/oRuPVWY2oqi0f1H9/CoLXuP/ 7A24WPvp61+fbMB50P2vvn uD0ovFArcBdrag/+U5036hE/5VW 6WgdtKIxv4YD73rx/rRiJEF1XZJ HRIutyBxyMHYoCL1WJLzOM u0p+v/91Gt9BkPv2OSBEtftv7Ma kJ+vw7YBXXJy3sVxJB1lugJ066m 4Ll2lnDh2/91721pQjCgoY A0+hsWq+wCczezBpRRzmG7GTNXX EuVaNeq+s1BjMgmB1GtXSIJ7SUo +OEok6/g6zQxQTfcMVG/79 I79/4a3/M7fJ55PcSkMtHz92TRv 04Xf/lN5bKYpxjx/+8K8+elSwUZ xs2H0qN7gQTReieVSpilwY vHfF/loga8gzeM8ESR4M4NSZPYV 5BuiQPIUT9mp9bu+ZmZmcnLTlXC 63tLQUs+p8Pr+8lEjO33SL ExMTWhgbG/H9m0O5mDGcPx79MBI Eeih6tbCQsql03+fepYyoYMl2sr ILx2g/JYFU5Ff6d/zq6qpL 4fGl0+jpLwgohRwXzUR7EdguFp7 bW+hw39EMCJ9m2lXoVW216YwpKN gAAACcBbVz/FuF3cGRBH6X Hje9v8miccDG7y7eIuPigsF/bm5 XM50IueluSoAgGTWpwshrCJwpGZ 0vKfq3XlRv154bDCAse+FF BpXefFf5Y25gXdkK7iBF2pTZNAy 12jm+PLueAjkpyuJ7CyXjhQNP1T chqArdPENC0fQI8uZnxUCD 7sF2dtoYG5JatOgR5+9da9QbIgg IBzxJpN5dhl3tzdl2Z6aQ5iStMS ssvrv+ZISQCJUvWFD2mPdN odbu3EQ3VuE6daWl+AW3rYY2jPO Z39/Xgitw+wRmqiJ8KnGqw78GHF gwWHgL5pz11G6XTmxgobIY AADQUjVyfDBbj4+Kp31NgG9ym9b rZB+gSFAwPKb5x1UQT1Jq20DiKB Ox206Oh6CIh1kCc5RSpKyi SPd3ADWIEDi9HhJtxTbwuA7ZlMD 8/Ao9d1ByDkcHV7QQ1l1iDS3nnL b2HhbREsxstODLbYRvQC2x brOfwIwGY3pkAWUYQGN23fzktoi tCt+1hNHBd1EQcEFLsxtee+fdlJ U4g/R7c4awwknxsFkMfn+r aIYDXlCInvfDd6DoxScoVLLBoQV xJy8qRVwm8f77Zqxcn5ukNDRBue wb4ZakR3luLKoqocub2vnv owdB8RwzNSuGyn4cOxmTsVng5Zi MclgNRyhgszluGLzzV7XDlBy9+/ bpjUCKVIPI4vk5r1zOz1zl b636gCfRQYW9EZ27JiJ7oiu4Ump 5pJ44vuPpw9T5cuMW+sqeJgAAAN X4Q9mcCzLQUNXjlQPAVOEL +xRYLzOUCE3IBI3EgBdJ9zE5e// W75UELU7W56qkS/7dW3/wH7/teP silOYLl67on8Ri7esx7FHS GFXcDc7z8ix67cWs/l3UVo7aEhb BMOf7chGWcoUuj4k8047I8TsMt3 Byu3VY4lxe/JLicUCOBwA0 QMfh0X+Eyed2Ql2gNmC78VlEk/R H/+ssS43N2bFH7ZBFpiRHOAa+fW 8pbT3nA2gqJtA3bQQpxd4s A12YP7yoql5vci34a1lrOhh7VdC zJgIam5d3izXldgZPtM///sHBQa efjak6t/bzn7iBq9TfU7Fe bfvDW/RhmiGZoAToPx1IgKzb+NK i1klbds+nXGmty907evdXq91LtO jXGl9kvYpNRKIBNFAuVM9g iy3bein2q3ak0RkTz36JKcUunp7 337GIeFU0rhfBP55ghRTSCI7Wd2 7KCQCIUogvlUqVZveW/AJN tGXQ4FGI1wQkAPoW4SSXcFNz+wA Q7KbwZrPNYCZrhwjFRZZTqkQa+O 4h8ERzdjc27sjK9/7smZmZ jpdVAtJQ5oDMQUTgteOs0EItmB+ Yc09SCWOF0s4wDY38Qrsu1GGXyQ 5TkhbwYX3APnE3yYVG69iT hd7C6Gcq6ocE4ztwGuMIJRPkT1p mPfcV3ik7vjD2bBfvw2QBITD53r TWX7WynNekUKVU5/MHyC1Y 20i/8Poc5qbEZ4wCc6XlxzMyrU4 9I18iPcI6cjrhSf7xkAwR0rvckG NQ1b91mLDonP4LWFrt9poV F7zqbA3ixjFcao8jPeqprCPb1pr KADQ6aJb2EprS7leg9MpVpeiedm SWqVQ89Ys5ecdmoOK6Fy+3 YWwfT4wjcS8tkxWE2F/j60tFnLr mLolmaFISk3w6SJ15acKqrcV9vH kq9KD2b14oDKlcYP1EJiyA rwc12upPJtyVFtDZm/GLvh2b0o1 7LEJVQC9GP1vtQc3EB9b8a8vYb9 QrEJFsPf0HLFKb8AkOjAwl Zqo86gWbxBa11+dh6NsxAq3TyJB 9XCPmX0GPUY/+/r6St/u4K45hs1 5NGn1KZcRGbf47doolEB07 +fJqFC3H23OB13BpDdas47gcsLz xPVCPS3OeYbDDCLFQgaL28isyd5 HU6GJSI7SThxVa7Mgei6n1 xvSjb1CPRCoinXDueo9jyPogcfb u7BduHRq+P0Ly3xtSd+ndrX1w40 rkxD2PIKEB3Dh6diuMmfGa D4uyowHly4D32B1EckCFFMfQixj MZT+Np8qo/LjfuTg88cz22oAoFa ToIvUSYsKBGmcQ2xL6KJ4N +gEAAICzoEaOn/KSeggu9GTE08k G3FS1few51FKkyin10AS15/zatW zzMoev7IPj6eReu+jr6+uq eYTydRkqFAnM1hgxLTN3X9WNyvg 7+3QbA5W8odsah7+mDSY9ChJZKB CGa+muzXB4DtDLi5Tkk3Lr niZvDIiMEMdmclOxvtE0bDnPIhR XxDfRC93NrLyRBcWCfc4U0N2q2d e21dQyanpHNY6dZEa4ggFZ 77na9R9izlkgHTYYVYLvcDdpeE7 WXru3OecU3hd8pHn0HlWMEO8TCH JL0pT9cevzQ0wiirQyY2su IgNytL4c8cR9HISFKXVUJGK6/vT YAyhtufqE+4xkzzll4AviALSCpC aYGY6g7+ev5EGo0069WmSN Elias+e9XdSMWMbNkVRW9UhtDI8zJ Fyn8+hoTopf4FMNgvtqbOpP0rf6 f/Mhqk4Jo6fm0YeHNb8Fc7 /t16CarKqT4JBrMf3qsucnGk7lP YwGuWFpWZrJqCJv6kpRpPYYPDQW XjGM2cbo6xvyu1r0ic8WuJ k68BDdN1fvF5AlNIc/T+pVUtAQC tZx8kTVWk7A0/Km4F495bdToTWQ xIWP0E66Lp1WyMWZ/I8QAA WXA1MpcJMVAE7zv7cr+ZmZmcnNR CLpdbWlqKU+lE7Jxa7Ex1Q4aq87 bbHCvUGVB8kEKGTfuZjssr op0pGnO3/d7IGczP204iZprflYQ y5iX2MZzgMiCv693BS/To+Xx+eX nZlqenpycmJuKcXZQOMTIy blacTUTZbGfNaABJrkAt00qIeXg G7bSf9clI98We1ZszbkUamx1SNv PTyWazrrORSBxNIiWLAwAA wH9DhFX7gC0lERg35psllPc2g6k SDo2iuUe2ELfqGYJXipYxiLYsQG vJ6bj5xI0snXb9FGy03arw mYZfFhwESoLoHvLf9y3O1AzZt+f y9yJq6Bow/GF+u4eM249r8vfZYD GY6vBw9pUECSSmE0iPRmy+ fFk1YaiUkwRVdJ3S6TFSD9kvj2J eImIDJT8IshsF9V9pSJWUfAxehY +g3ZfdCqYbMop15HTawsUi tpCxVjhvXxMfi00mERuERLqyVPg ILjoX6xPbr/KlBiOs38o3Nf2xg9 /IiaOCe58aJu1W2sDTvMPa UQZ5KhMwyUxlpp+/J5RGQrPKP29 POPfd4umPuvmv1APxz1JfNfpVNx TJ8RMa1y5tEvl1MRHMK6SP OLMy2RCchAuEDr83jwcImQM56n6 h0zO3Gg7qXM9o7lbz0oQ7MyLkN4 7Gm4PdtnW9xZ82PcRzEy95 eiXBWfLWAAVu+/C79afbausgVaL VTlTw5jm6YyrUqAhzR+t1f3/fdr w64kdcbq0E1gNyHRnmYJcj xOj1szvYHCHEKpGd+EGfEnkikQh GQNOLL7TuRmDUEpZSJxDFtnG2ga VQ+yqkXX3nh2oo9siWWjBr M1ep1L3nSgBSemozO/hVGQ2JXso aY/NqvEC+D4o/eM7jpNuHWpQ9YA WEPFB68ZZiwjs6i+Pfs74q u/G77gKV4Jh4ejsR7+jr9xe69pe yYUFxC48obDw4lcgl/v5+dSG0UL RDJQsUXEflbYmuhA8g6V2o 6bVc5KsRAjIYuFNaopHTB7SPPRd FawrGTzw5wtT9jX60Cugci4451k kOu5I5ci2fMGplNfxdc2cu NvJt0+9iTXePW9S3hVMr0fD3U8y xSU6Lcm08kMy1r/t2sXrD3hllPp WzL1+rn7tGCMITRB+NHK+0 uru76+ojxR2F5zkEzn0XQU9R8Ya m9i0et8UBYpZNKT+n0+otRLdGK1 PueKrO7CrkiPSzq9CViImz kHM2sfZW9FQxntwucgm8UhZdoqH FRWjJN1QPvgE10nPLOUCr8B0QS+ Pnr0QJFHonNuNgYg1V2Xfy W54SysWdqniGFBv8fZ24Vjedfv6 AsiY8uOzpCF6jj3rPwogBcanNQW aICXXOSbQkTo1nKNrz0rFD MbPWKAgVYT95FJ0BYrALNLKxmgB AAADthxwPAOdTyfMS/kfG2Anyjw PA+fRkqxsAADhVRzn+/v37 MeyRcP9HTeCq3pqgloTx6gWRNZp aYuQV208Olg373CMvoEd6A4Dac9 gNm7tr9q4ugP6BaSiTZyv0 paOpglreP93/2BanBuF4ZUJtUdK 0PRH3MK5RZUQP5O6L2TODQKV2Hk gTCNHT3DztAlKBUXQy9my+ oAosal8Jhpjp+c3HsN9xz6+/Pjg 4GKfw+ne8UiWiNkqmHW71BDXj5F PP8NROT2auQ+bz+eXlZVue sz9gmUlyMMz2DNv03F5CXBUXjRW x9OlGkjD3kA1yYwaJqxyPBx6YSs nFY9lceIdtlbKk2Mugspus dhey2QmaomMSWSTpD18dE+iz5f7 +/pWVlWMfyQ1+Jk5kSc6iNOR779 eyl9lJ71jS+jy74GlUW2MC zQgOHMkB3DaS3PXroybkMALWhLJ gMP/BdVdqofuWps2dEcu7kyKg2D Bjw/J6wjmkeKj1BroBU5in Zc/XdlRrtZJRfAAAAJxQHfPjFXP B9rJdFcCfeJQu/Cauhtjj961zB2 25V4MBfkZqni0LCx7CIM3+ /XqV+EP9LJsiJRPN+pbvRip02vg W5POGLY+5tfddDuBf8pupvo0s5v x4kJyy8txyQy3mz3rj6htO nGtdV3QX8jw1Yxt8TFvcBk9qKIC A4IyLm+Sr3t3mgJ4iBAWh76ezNy DithLxy91xaaq8pmc3hcTP 3rhcApPzjy79IBbUdeTmEOdxmpd owGpeu6QVi6pBVduLxNmcpS/4r1 324kvv72zriWQoYU+N147B 8+9x9uDWDmWLSSLWDzCup74de1o 8dXrB597ZTg1/ElIsFkNrlIYVeW 35XQ4vU8geuesqCoIuUGyq VbA6k51CRgyb44RRwj4halWvivw VucHDjgt3FCIKBACJpeRLqw85iz mMrA2lbiz43N02a8BcRh74 brk0Ah9tbYFxG5G4aVK5g5r1ufC 0OpktiYe9XN7fSN0/X/au1ipj/M tq8s7o1+1OXlhHz0LeCBrM Oa3eYBCTkJr0uqnLiZk2HNpIqv2 pzMBwUCk1GUmHwHdeqfe9u7dIrZ snO5MhwfOxZB24QDsEK5tQ jgczc2tYodvpW6CyJHqtyBR19AF dgKIz3eaJ5LZLu9r4d+Ms4WL6wM nZzOeBHOrD2pfw1zwk6Qi1 6+t0z5vcDbciOmRBDZNfGA0ps+P GDe/Z8eVqh0qA/GF4tN24QYLZLc 5dt1i2wt9jglWrDreaU2R1 pEwVz0ahwoqcRouKrgdzSf6e9Gi ZoVLt43EuUbA67Y7SuOwF+e758a rKtV/1eecbR9OJsBl43s1z wglrHT8Wn7eFczc+4JRQSSW3xwJ 5ekMqhhDKJuSif3lAzm0TeUdxjY DzLkPFQvVHDxS/zZVKRtvv 0vEqcrew9YkfMMwGqyQGpx4FMVR bGpN4reZTAEIMMWITXlGXRQrYUW 4AAABoP+S4UXJDdS3Y0fKX ZOH3g2Ov29+/v9Ah8SrPoMSi6g3 g2oqFwB3vxL2wkPCf2N5Q7eNpfT oSCO5zbml/8eJF/krRY+jw 7LObq1H9g1eWPteAuMma7+aXXnr pVI/78ssvN+4KLZbbiXb749zI/M O1/LiEpHeY85zUHZIM0rXN UcNXKQrAIA4WEPWrO+H4PNUCsQ6 DpeJpUaWui5vBC5qels8DToZWC9 jld377onttO13vZ4H3wJ6r dQD0zD1Xr0WtGcCCFBzxh7ad1mR FftQPzPo5jh+vZzKZsrUBAAAApy kWhwdOs8aqoTPfjSF6iHSf SR7hiVz9RA7+EOLsLE32RIZw+R0 POfsrlz9jRK1pfefTLoGo9j8RAs FVmfVpr8hAYjKAULOJrtW1 fS9eg2QiJtmc18UaDDAtFqLhK63 m0GiwVwHxsQuKelm7qpw894GbiZ 1xLHtujIbMZdx9qJypkvft qMa4pTDX5y62HzvxUr9Xq426Fv4 HnW7S07gVH2D7U+2h2qOCBuUKtE arEmuVKlxeXlaTbDzePhmw HhkURWaVXrRoKO44gXF58lYTi7d KiugEOTJyr2gRn2VbZFS+W7duKf 4qECubBhPz/Om2ozzAgFHo 2cCUloOh7fB2BJkDJeirVbovrF7 dFpSvX7+uxmhfZWJLwErJFuWj+w Y/DSGBXatRnF1M3MUnaGzj 5g4F5+sqqIhgBpUnu80dkb2JI0f zFknUKaL3mv1PhPohLRSJ2BWDJW WfI2kHbDdiIheqP0iJPmPZ zVDrcG6dQE5mXXbu/UupF5a34ky 64z0GEt12Vm/YaWItS4nFFJoIyB Vi/q99CcsaGxa0+7YbhncL lezWq0QF2IuIMsryo4F0u+XGxoZ F+Y7egjYS2epV35Pu9k4cK/u1tT UtqINhI/rK/jnflbDWm9y3 qS5pwIPWQzJGvLuIvXFP38mRM6l Wk9YwUJNDhWIOygOdao4FjJjEVP MljS0KE7u7q19myp84uzyG kt1o3ZB9PKfwayk6e6q8Hq2QNIS VOZV8Z4psg74d+ca1izlCjO1hp7 QbbfqjWsam0AG5IakRhNuq J8qOo1zliWUN5zldaRNeefGL70m q2IlUxFSW3AWoX89R2DjdggJEox TwmXWVMBE8FbPrlopnwHO8 +8Zgq5cuawhYgt+RKX1ak7d46Os qoeajJ5pc8wXprk99uY2yb33W7/ fc0ErdT2qqhSqfreDkf6Hq nRrJ716Xptk60nluIo2qElWj09z 0RFujZTXVZs/zJZB42aDOHIIA2K gcb5k1+OuTsj2uQ7/Vd1Ru HoYlNPyCHFKQHWIoiX6plxt186X DWwBTG7eCMCF0ci0/ujI9Ivbpse W7h1R6/hwbW6/SsvaM0tzy dkuYpl8vWUZd4Da02Ec5OfUEPIY 1sG5iVu/Wkvf+TlSQCW8qNRpz6z dpN4hhrGT+p2lMqgwc0xGF SagP8Xi7vaEMwLYfIXg3A2w8Ko5 iGKrnNxY3hbsun+GuRtnGAwAAAH Gm7zBl8H87F7HlpXHOKGZJ K3OqsivBAbtsdbcQCRBABp1NGDP X2j71CaEFKZh/Rzm+XPjtCr32rm ZtQx56JKER6N96Pk33bS+/ /5vf/MnOOTDk9X80j0QDqC/bb7/ dkjZfuXKl+KaghSHrlPrJNw7CHq QK8YeVCSnn99iejpcaV2lv ddz80m1+9md/9metbgUAAADqxvx 7ORXBoZ1L5kEPQTD2S59PMGIV5t 85HgAAAGg/J8rx3/nOd77+ 9a+IGt6ybwmf+MIXBgYGtPDiiy8 hw4hjy14+fn7+5z//+RtvvHGSet ByH/zgB/Az8lK6y//8z8H1 3/veY0515AY4myGh3+/+7u++//3 vu3eU+5Ajt86DXbne//Efv/rVr9 rw9cI2sA9UNPIq2ugZ/exn P/rSp0ngDFs2WqagkWfLii0//OU accounting methods analyst/BUo8rw38qXfhhT7/3y36es5R fz8Zsv6c7Cq8YK/Qiyvx8l t0vpPiJ1cep/2SfK8V/9xh6l1H1 4wx++/fbbblNw+xk655Kh4aAm3N 7lJ0idul/80llxjR8loNOA sl3Jn/zkJ3/xF3+q9IjsSvg9n21 5c8sXIYzqJht4z//85y1wv/baay +88IJ+MiLoCm3DDG56vkjE CAzW3gx0QYMl6iGpfrjFay67aWS 2cxWU5quFrrN2awn6hH6a05bEha h+OwB45+Zg4NIHD8Uqfh0L j4yMzM/Pe/4CcUUTFzhA2ubmeb0 tZGN1ZlmAZwGgTLWiU2YwXCybh2 rQW3G4vpwjMgnM2Q05eUlO 2i1AtdLvm513cj/84Lvf/a69Q7R X53hTjYQovBoN1hqleGWyVPMHxG G6Va/I94qQwN9vuK+PVEw/ uSnoyouANRqcjgwm9rX6q2p0qZ0 H7U2uI/71X/+13rGMIp+X4bb9ep rkSMsyY2wvn8nDdsQ4M2tr 9otCP/vr6+pvVuAZj5I2p+x2/M3 KwWapb574dsUD7HOwDl033U85ML tkZNbOLRl2FhAZ/df6ojFL lStX9E+6I7jSHompA1AxEzP0RR3 KI5wF49VHvnV9Hfpk+6qD9Eqszs pvJV9//TF8amSTf/rUj3/8 29RHTtzngbQ9trpoIctHd2XhaPM v3r0Tn/Yj3M8AB3PFaLuwsR8fCi OKmGqYQqeyBW/X57IgDK7H mGmKa7SrOu3nP0odPJS0TMGBtFg Pz5a//e1v/83f/S1MncksSLZ/st umD8Afmcmzuh3jprBI1ZiZ pRTKtaC+jufPz/H8f4/n5+er5Ph fb74Dmj2qwD8c793GrfFszcKt8r mgEWzmzE9/+zC7Zprv/OIX a+55qJ92Iq3jE+iK+KGfLrfVcnw mkxxLR2L2R3+eGNldpReRgq4g51 3/tlf0VI/k2mOD5P/gER83 s436ncDXrMg8+vo+//bUl9kngAQ vD+vjFYtF/oIULyzyv9g3hs8+M7 P9yQSVyj6bbdRkmJm277jv 4V0IDGg++atmusNBoc4fkopfZdb s+o12NGXuw/HsTExXwzKHY4XXFT cu9j3dxN+wgqvJghugF8UE GAlMlX5x/pveQpbjgfiee+65n/z kJ+bicNsXJQBgge6LeagxDA4E0E k6xhexNJ8L7mZ/e+kxFJzT 5tz5tHanb1ou5ipU1oQtptKHpnx vooL6bsZ3y9vU6JFrqphnAVdTQD S8jx5ssDk9N89fdpBHO+pU pIYGtdpT3oB3qP0FLaha+cpX9O+ 3fj/NtzqLFdSVd4Wl0qxTg7O5Q8 /f/Ty8SQHXlhH/c9WtwNxk s8/iWMg7NtL6zm8E+hnQd+e73/3 uiy++OWlNNGl7WeG0o3/xjW/oS7 ez4Wqxh4kR8fN6mj45E9f+ saT1Sw6OKsA21jjy9pHCPgigyHN Nb37Te/1z0uCuA468ucmQ8q/Qt1 slPygBCkbiV1Whyqprvnzd mEa7G4cd/PAtmB7Zrza1572DqQ0 dXfU+GUPocaMbDx9cz1jGnJ1KuT UHAVKz2sq65U9N/rOxG8FM q2K2577lUhbGqeO7kHnGF4nHdnP 2FC4v9St/+IGOZXe+CdMnh0VuJI +zw75MZdbywxYrRHZ/N9wP xydSRlxDo8464/mek3v5VOBsfNu /3HZs3H9/WYjZ92A9F/y2WIerdi 9aPrjefMvn+cEuWk/oofJM XEkPJkFl54uAPl44q91E/QMCrkC CAn3ET60u0rOKaWdy+yPA+/aEQr 95ddlj01zxbq+fp0957x/8 wz+1pr5OJwlKCjpy5lnwCv3SKMX R4Y8VRT0GMGJt+NeWLN0KwGz6/O G7TKuKC/3zGOeHZYFM4Spg DwAAALSfoxz/K1+rW4LW+NnPftb qJgAAAKBu/i7Uhx7ESZakolAgeS IxKX0JTA7hs6AwPUU1IEMv t6CoYNh0M6GmfROYWHOAe40mo20 zzaRpLZ3Fr6sgoeHoUQEdW4Vdwu ujNCftLVoiMNDts8QfCMVz sAX6IG0AcXIjTCBpV71waI9bNX1 7BUptT43wp0YxLCOdB41evQ7euu GnJNS8V3AuLZXhJ2GmipFl ND4+C4ZhjRTrpl9GxYX2NHIxL25 hJI0HNHgbqJSfDEChT6bibil3eC EhUCR9P3D1ZvU8xJYpGH4n V9HdCIkcUF6LP9CfMOL2Y3yuQYG oIDEwMDU+RgI9joCgrQ3VqQIi8X 5b7dPFvZUZUFYyUGFHOZcT ZuJRksEZoUUSuUqaaGUSnjO0FGn 5XB44XASdUZWF4XQ8SPVMQ6Yh/E pJCldOj4Uu/D6/IaE24G/w hvT02wffAMtXN8aOHE8TiAVAYPb sOiGPFtbujkFHqYvYflzDkq4NJl qHFuIDVq3ndGfx5Nju+r5E yeol0Xr3OEjnJkAOMt5gAmzHdRe sX54cSvisvENH3bOIlJVXz7lF2U eE23IPnquBx0OED3YAyjbg 3PBy/QN016f4gRaBUV7q8sS3PI/ 1HnrC1hR6Kd/SWA+QGepqn+hJtz r++X3i/t/FhuYH3SHp3FIA 8Q0lcwtpu2YTo9yw1zE1ZPchQq9 giqrag/E5vxd1fqqe1Bnjt6BQ3p 9FkR4gpb/910wA6b73JaKt IFkoys6L8cE6FZB6S3ZSQ4FGqFW QOIhgSzTMXiL7YYJ7W9ROU8LPuS EPJWaiWrYJKwM4YKH5I3ZU Q4RKtAAAUIieVbMFRsA9NKSz2ny qTz8FhlxcMXGUqLsDIQX7T3p4qs rH5Yp/2B+EzHgFnFJVezhu Ku01T8T6kzquH42Ku4JDQjASxLi ybK6Rp9Jl6rwmBNxaYPMFwyt0Dv MtkSdbdqQmaOM2BWjyxw2X QN5iSGipXm/YzXFdyQIOoRdqn6r wEWoMjkcfo8kiAkjduyK6Ex1DSx bNuM7VB87Hu9XPTff/Giuseppe+N emXGK+SBoxwN1XK3Z1ORL1YCwQP NMTqePnYVIjI6MIG8Q9ZVZ8KLbA LKXKvbMxUDHfB6JDY0I3JA N8PCfWCZVOckBuJJJuP4TXU9L6q rjH4aqz95eh0vCRKDLsf85n0shE Nbn0hIfmROYldv/VDupHss 59Eynj9MxOtSuy+T76ISnm4H1qr 7ZGRqiJn44vSMx/XxLpUz6Nr5Xb /n3BqXK3Tq4rVDMhUclXqT RGArn50KwrYbROpRV+33kg+9KJ6 AltQiqevfr1DBL5vDe9tR1MkR9a U5+52a+euQZG0jnC2PQiO5 JEL5M7QTH8NZmBF158fVn0k/vnz f/XdoqO9LEjg0pczQW27nrHBdES y5pPBdzlSNns5XOumOo5k0 +3sRf5s2J+ScS71h4d3aS/iJXVu 6lfygXQk6xGH+tvAiIhA1pPZaBv 12N5OLL9LFvNDVVH74xH/R 9q50BUBoZudAe+2tPMTay4/eHN7 yq/A6aZAyr+TdDC2TN8aRIsElIE zitn0gu9Kkqlp/DzIpJs19 D2WeVzK+lvdLFeEJ3GCXM0IPK12 jo2aLCyr5MCOkcs3vDC74m0+ffl 56IL98dGeqLdlMjb2CGp8g l0WeGIOhobgOBd6YjXzxdMUr2DZ cvuSZCGuIsAwsJ1gwgzAPbqexzX eXit64Ce/iDQplbmRzdHJl ZD7SME8yn1UhSVA2LDAck7DgSOz 5O0ZldYSHSNLIb43be97czzXuBU 9Qc0ohziReVLRwI4Lpmwnp LXMTSs0LXBSiXJVXELUyzxs9M8U fxFKWGMTDz98qf83sapKyVK1Wz5 ihqtXcWx8Qj3u4uZ5bZMWb NQWsFTSqRGdgiB8bBXV2Eh6hEzl iwWMvY2CaCABvCVCkm1StC5egjS wqjAMkSNZiSFPqU9WgKJl4 XI6RSQHlzjHyJcGmQIXoU6AbiVl eNO2JpNYsVQ4CvCTyZ8vHIfrhS9 TkR5cgzJcrVYKnWZ0+c3Ry SRAbYOp9Tu6oyP1FPIqUYZlVkVE BE0zf8iARgVKAQdXRdRBjbDnRlO yUQKVKFUtoTnsU+4ufZ7b+ 8/tF26QcPeBCOJ202vOSYQYaTa2 BHHMagZOUlLWeYDQde64DPEJ0Vm 7UBHYmwSVGwZJbTPRtk01B RVJ6Tt4WOkiRwfzmkhqERWrm+FW 0t25tvoVfWtzIZmA4XdToFxcZEX SjIC9DKHn7KCXU5IMzXKNO X4uHPMPfDS4GVZg5UMXF2CJvDGG AM3kCWYGfPK9CGLg8RTMG3KBtJN TJF6zMFRIeNO2IVQo7OQZP 8GOeDAQKH8hTXAIkEH2BYMb3JFX J9HUgSCSMA6oJRLDnDW2NBVk0RL UL1GSnEQODM2cKVKMlAQ6B KLi2BFYV1YWaHBWYS6sg5AmWq10 YN6dxpV9UTCoZ4ZeO4/2mU2Swxl IwTNXCpM6TIGD5Kr4CWRVm kSTSwPZcRZYba60JXMG4Kf3LINV qmJZNuPIqQKZpp48UDNU3Dg2WRE FrpERJzDFzGJLrr80UYPB9 Lb2BLBBxfZOClRXgTMRqg83JDTC 1Vp2BDMFttPFPkOTtFCYpm08VEP Q1It8NCOKwzQWJgREiHJUh o72ZSXA5Kf2VLNDrgCWUpQDcNIL pk70am9Jy458ymxVMyVnOZVLo47 eu7/v2Z2zUPlehMIUbOS8E FQE5fDjZGPMP7MTLdRzKFkJDDj5 QXYH6wQfQMKQC7VUFbUoUQ4NZ+9 xsahcxL9w64bZh8su960+6 y3HovNu7P5jO8+cs/JmaYc15vEL HksEPIt14LVm4DXxKnkWrdTkusg /58/xZTe9xGj1n7ceg7vPg tkmFUx722ZsXBw1IRDmh4JZu93V aO4z9DN1TVljTFULjTY4RIPs6NP JH6BPbWJgs4Fz+3U4kHQXD fga7Vf12x+ejPYDrpOMBACCPjgc EqHl2FjVL8ze7Eogsk4TSckogda rvHMxis50/f1e2wm2i3+7t d33lvj19rKoQ8BNU/7rq6gHfQ8x x4DKVqPFf4uEeyCEp2wyxnf50cW PbwuZ4ceG2+/8aX2H2lWlk DFdmYfMfAtbbWISo8NzMMRwl6yZ AII+VWeCLSSxnBRDj3FxZXSrp7o EAII+EFdPXEZ6ZR0iEtP8P DZ2id1CwULLtAJUpOQ0dcv1aSVQ zHB7jul26JY5GpNIuAZGuC08noU 3qAT68KXnmJ33de7HIyOGy UW1OWPXqL1SYvnJ4A4XbR79xSNV rnv7zVLcsGtp6p4PyvfObkJIvqm ExrXL3Y2IxcA3ubbItP4Py fVEzwhNcVVWbLK4BxkErcZG4g8A gMTQ+Ts7IkCv3RCRiDiqlzUVHPH PsCHNvTPFfA1r5PZAqF9kx aun6nFS8Ad9KcUL4iZJpR0mmFTm rO5P2kAIjNU8nydRfsM6KzRS2cU PzJOT3Vs9mwXCvYL7MXvcR 8vIiZHIwPHXncxj4fUuT4LTYj52 1MAP2UlCuhVoBpD8y8O1BdzkIu8 PK98EQ7PFyzosxX7C3GSpj UuUsfjk2A6RfzfGaYXN5iVD8OGa oGmyNPeGAQJygnwQzvXWvJP0UGM 9rx1UwISZ8UPWqb1BsFYj7 H7VmmZFTBTAMe85dc57dnzLrDY6 Tp6litcGiHMPvY0TkwqwtYZKURq 4ZWHCiTDIGNMDcftx9S9Km eWWVWLUXk34ys05aioHxND0Ta8l bqyBuGj7Zz8i6aF6uRAMlBRCgDV MzTSuorC1kNZT5Fx0gQeky cVAbW6PeYBTvPRWmr9GcS5bptSf wjNCiQS2AQB0wxOsuAOPfGi8KSB BbrtGjEXOfWFAaC9YmnDdx RB3KcZPmZM3DaDXkC8eOPnwpJ6O sR2tjrFgcJMHwJB0+b7EwTTAkRY n0En2pzY9yYTZKn3EeoK+A qEpNLkxbIYHNTQOjWYlYLrxJ01s htQcXsW6esg0hHUN9dHkGBOjN3o saRKaX3JoTtl/hJKE2Qul7 vK5Ll79e99yWO62UfCEuz6nz0zH j4/HzYpREYSFGMVY6TonIrrUgHN LMQAWDTGTw4NpKyHFBBQYZ kJGhjieEEEIIIcQ/qOMJIYQQQgj xD+a4ZievDs/jNZFIPD4+2v0XFx eOKZoEWvl1xc4oi4Gidtdz 8CK1OfZLQCDsZ5fc76QRjDbw30+ V8VtU5lZvBHXqB6nmBEUwETEcdP 8swbpypSaxC9h0IShFi4CD RMDjO0LPke19pCofjKIZ3M7gkf5 2v0s7cIJ+kOLZRLf3y4M31v2w1i I/FWkK92U9+jp88+bmJnwz NDh1nUTBq9Zfc/bq3VD6HZgvPIE FdY8jGgV9jgf2+vpSeuUgoos/Zi UmGUyJCrbI2bSyS4RqYCBE ZzaDoyBKVABsNguRdeUS3cg1+yS fQ3wBW+st8k64u9PLoV00Hy7UKW lLsCzft5BNIur4z4EbQe6f 102DBc6zyzW0TPfL8AlXKyPykGJ nDt0drB6kw03hYiWCOQmHp7U6mE z8/Hjk4pMzdpwYHTxAYZBx aMOonMsjKV6TgtAoSxslfUyUokZ 6vVGI4wrU5lJuOFYr4lSNa8Rfw3 xPSiA2kJfkWvFPHU9bFfVu I9KEdFPa+ZY8MD0Ej0CngKlWob+ f9Nm3LuOmox7l01/gXdgVwKq3Xn RuoDXI1huqEuMOYXIJPCIC WdWBtxLw0X7Z7Jk22OORivEDM0v Z50g2Ks0XqXESCJFT5Hs9+vr69P PB4jCFUTYNqUodWnBF5gwa +LNS93B8STryWjsC6CAiB474rZ9 ClB9YOKAAtnuUPEmx1LjQWg0ZAV 15lUrIGbBt7PQ58J1W5uwp G/S6NLXgdZu0G2F1ZG9pkJ9ZuqG ofCTXIfXjtK1iifeQDOFcND6yVm goOooUbqLUmcrCe8Q1qDgB 9AhZZIzLlh/4iowx7XlH23Z9VOG fWVadC1dZf2YU0ixlqt0D8SNKiv L5yfLkN4F9XaONdGeTS75L qmeOgONTXCpB0cJVoY9kzCGe9jv /EasimUw6/C4MI8f+73lal/wu5i axnNGnIxVqmPtJ9lFDn55Q mDdMaoAQMq/6dWfdNYVwDs0LIak SMIPMgihXWpYpXZ+eiP6Of4SK/E T6jEuHu9S8ijb50KAo83PR elq/Nhdkri5KpoOX+KssEr3aIls EU4kajSxImFlg6MphXUo656BWO6 pQVtUdmQYwIK+vb65IZntl b28P/futH8jHPUTX+m1imsXRzv+ dfckXGZ6BeIsW97ux3a2MeUJgER Jx1Hk8ACXECyEteJ5MhKZF xSJ+uOQoFDAInK6XkH/UHitz9Bt dlDEEVPz5Pqk7/+w/OaQ80smPec QKaCx8nTqQzlkd5tUO8BIZ Fo2+Lts7y+YPq4zuxsqTAf4FJa2 SASmPlLGVBGvNFJ6FjBJAN8GNd4 8ul+Kn48SdoUrszIFwUTlY H/InV7QlsV2pbVpNB4hE1nSWI8d WRPIS/9hyfo5wKBUCQMC7s15Gro QNJAPwe1G8iW+CocADu9hs mEEpdk+iMraoxsVO2bA6nMZytMY F+Kirv/mJyuksbPqN3iVovJ81PQ INjyNfhRIV8om1zGK3TcT/ J5/mYKhfdGjEXAD6cyZhSBAQw/z gbsUbcpFvlzb03pOebGkBaeJwel w4T3h7twpHTYM/JQ3veG3J BSGE+GgZfkfH9+pgOdAhH5oxW3+ NH9Z3GP1pcoQnDttR/NghFPNthB UIUgHQPb1HdlG1iNkf4+MJ XJUNDvmyH2FpJlpjiQRYvD9SrkW CCCGEEOIf/nDlc0I1DDssmwYkxV TqRN9IPC2sd3WyJRTfCBAi s4IaDSs5Z0VuqCBTCREUq94yp45 zpcAzQF2Xv3exqyWyTJDaW8Bjev mdBEojDKexNFVbn5JtBQTj iYY7TZ9KjYHzDPWuW25ttM6lQT8 0HZjwK91vt6CjIESaB74wyK6spb RyRDQ9J4KpXSEgV6LejvHk ND4+T4SbsIUilj1IfYB7CCObV50 cUM9FBQojhVDkNSUvD5swxtf2bO Q9QMNwB6UvzKnhVI6ImNQw AA8FqTXfK8oWNgkeN3YlX6btpHw gMTAwNT4+c8NbHLTuJYs3Yo0gpC 2hSLOC6CCZnZvjGHBKbYPd vFLZy2tp8EdFfFj4EXs8lCl4qFm mKvn2ARvAeOetC2dtWxSHQ9/B1Q iEKMTADMyn9/Hp440sLkPt /o9K6D0wqaH2WLPcVhD1VZS/UTt RpHkfJv3EIqPrO2TleHMiwDbiic HMeBo6p5ZVkBctwNX6c9Ym y2CHHOp31WPoF07fcBtmAzuyDqC jY+3Rrc/OHn+XmVtmvs2ZYHWx4x 7vu3s8pAN17y/w2CmA1m17 117OhdVc1+9/ubhjPORnT1h0j95 a8fk/hG7cwp0ulwOCdXMCNFahRB c9fq5kHNOA68493fIYqul4 yRDH5k8rj/v882OOzNSnULoK2HO P7qMXsCNEnzop1J4TjF4vEHvTlM zfXm3WecdjAzZYCExISnMB EotkylZ3UCP8uOJpEWQobSs7YtG tyxpEIsVaAmhXV2Cacnyyly6Tba b6AG1gj16fmDSsvy2jXlV4 e+3hyZvTvmeBochY+2sd2q8tfp9 m0/uS1wSRcjbsU5/O3U8rZy9CZk CNfgbdo2pIdiJx5Ik66qHe MAyJa5+c/6mo3u7WRJkc6l47KO7 M76+88Oz+u541lFCcEIrjR/q0iz 0fyUMrSWtfOX/H6by7BRiR wEDQrdcbbtA7XZX4yOSmRYOamKg 3AkFrpbhSLyDdTpiCZ2YpvwtA3C DI8pXAkAECrysc3W1FiZ3a FOnZdAeeHe5DsspoWfOQSQmATyU OVagdqkhc++5+nCf5qYFwcIxg3K 87EJ918hqVPKt4ck0ipZvS H337BtH2rz+3HWKHVlLXfhyv+h4 VbnDe0gkh1Ps8/MrApTB0DdXlxk 6396x49zNB/feaLXEsDETe 9cn9xmek2oF++uL9y6/++OHXBgs DEYMuoqqvnz5zv3gSM58f2BPygQ GKpZU3Mf9qP9382E/u7X34 zXuXX/35+63/gPCbqDLsQVsf11T nrbdqjT6dRqaUX+Fle0fcpEmv8l 385RjIDOi5fogwOqn0sdx0 TtXIWzPIrxO3ZXq+0/tDALv0g44 ab+A1gesuuge6m589VbdM/mdX1z P5vnZIUUjATPL/m0iX9FUi p6xdQnlUv9boafesKU/t//LZEse 6ugbepdqBpeSt/o3Ak5xbtSV8nU 4ljfC26IMxZ7Zs3L42Ma/2 Ox/JQzOJaz/9xPc7oQa8wCf3CbL qhyr+FzZBgUXGGeLhIZW4koZhxC 1lbmRvYmoNMzEgMCBvYmoN WNbbKzb5g7ChotCmpFDdpcZyyES 9F2XsyZ2aU4PbL1OiNGC4kIBpAn gLV0TuU47zXRNdlz1jWSef Thv6p1YcsoAejFNatzEgnVR3X1M lzP8cuoAmJ7AvxOLhudPpZOYjZU 1LsjDnzYD3c4YyDJY+Pi9G zSk4BJHaMvnptJPZEDZeQQCmUBW pP0k2VURiOF9XTB7gqYckOPJ4T6 QRWLTiJBRaNJSfGw9LfBA6 iLBtA7eoYGcdS3K7nEStNT6jicI ykW7TfKF4kEFgRPE9Xj9atGXnOE 8DZytN3dX4loUOMSspPGke HoNWAEV9H+vZBuybKYsJvkGjD4h ipCA/QlOAlMkQUaeIJfteffbztB bwdwlndGm2BRXSdJe6PkHR AIzYghYNRD6aLeOZgMZ1CSSi1pO QLGGJndWKJX4jXlRXeBU3GGDr2h EAAJBHx8/shu7bj7jijcXL mBsbQ9wBl2RpcdFC8IZUiswQZBN jHs7CVIIgoILOqDMxVBSgn69UDS O7Du1SGRLhkUXDlBIcVFHo c75KGBO5Ty2QALQvvEDPcOReDGD yy84ALQP6Kc1AGORyjCOEqXJpHH Wad05WKWQ3Yz9EQZUajOYT bWKvXXHwv59YLPW6St7WILTlyAN PePPdFBFmu65VFYI7Gx9DGTKobY RRzQNbHHCfn34YDZB2Sy9D HLUegTZIrQFtUEMmv23KJLV8Nc0 AAPLo+St6KI4xP+euvZ4G4SbSKA vcCcMWuGT98E6671Ss5ZZS mxfVPRAhUu7LNRHxxIQRdZWaEOH dc58FMCD2Mx2RNAQqfFWYlMElPK Gli23HNZW4Tc8WSBZywQGD cYRiTMKcx72HQJZ3Io1VSIZgbRW DfNOoHECkg99IZEM3Ui8SRUVzoB QBgSDqCEVpa53DQZI3Rn5W MOJdmENGnTXrBNLak09XCTE0Ql4 RPDGynVUEdWEtRDNuq93DFKD7We 9MTIWbyUCYuHZlYKCcq01I ADS2Ix5SBLTw+Lk7Ho+tT+jndDr E0WuXDNabI8bztwr6Tt9ARyLnUa KWzN0WtL7DN86wx0+erq/3 E42bqjyYn82+M6D1toVbNpfvQVQ wHSPz64Mdu1nuH/TSMc8KNBalZn c2lPg8ev9s9L3AExx0U9/+ /0CNja73fWYNsI8etL2QbF77SRD 3qaRDAoOdsyQORA5cET5XBIw8YW FJ3DQqICQKR6kXMSRgOE9N AHl0/WeqRchALjejabj2Ggu56vx n+6/fx7+Bu42n4a512Z61fJh/oC mebc6cfDIfapijheEfKy1Y kG7rSODVkHycCVQBe2vJa1urd7m 9Qm+3iO+8uvHQMGOY0TzHZMgq8c EAII+TSlXFUXzbWHXh9VcX MOxa0bQLEO+OBwCAPDoeAADy/AM ks6j3FKdhvoMgaKJwCU0VTD8xd3 YtQEUeLPSkr8PhOFz4Q8Wx wVKGJJYPn23rj02twlIjVT3Us8b cslVaVQVtJ5PcsfzgTRhhRJugHU Uko6UsVUEcnRN1OA5DhNJx HUXzG10rvP3hQI78YKtmL77ds0G pOWFpS47mrJ3cfgBqBRF6O0WbEA NrF5OonqRiAM3+K6VfmZVj tv7UjLA2KEOsS13yPQ5OGJhrgVF mPcTzLHBuP7MwTVi0F5C1SnP4xB LcJI1wR8SnHMxfNN2RL0Ra CUH8A1ufPSSsOZReEWQ+BoO8ceT coF4PzPAz8tAPSPANpUTM+bfMXM XYAZQfmc3HsdfOBN1sG5M8 RZnyOoPggca5L9PtbjUuGJK0oQX 3OQzoLiaPFQ8RUmqNiwwism2H1P bxqVqKmM7lIoWZFROBXdTr APT1njDhfM6qhhBlUgnZHeQrAWN kNlrPGQuoKxs5v3OrmsOzrCRskd UixQA8I8FfbA3rE8QrJ2Oe MNC9fYGwGsqVC5NbM30mTNSjeb0 jYRgiIer3i9NxbcWipCSezdXzuN Q1F5VyoS0uxsNaG1NnjFIm mkMxWEQrKW7FegCtpDW4j0IhUWF +Qf5FcEn2SMDqKjhkeZYLRGNvJF CzNSFrO1y6MLXjT9uqdwt3 fJMqGER2A1AKMCIkRCFmFQFiHu9 ZcNK6hKAkM6dfEXcyL1Y1xUJhCE 4jheOccE7ZcDB7nNXfHUR6 Sk3ooKBmVZ6CEakS5R03IrcIURt mwGU8y7SKhOZb7NzxQFIXMIseHJ 02GsvbbGVsaIiVjeXGbbAx SYIRJjAcEQH9SjPjmmbUZBb+T+Y cc8uHiLtSAsATpgDp7XO3sx2e69 qR9TIj1+Pj8/NTEUIIIYQQ Qvxh6Y/E7JUJPGJBGqcoD5HqesB YUTKDODYZunQKX0QXSsuexC+o4w jtoLATAFTM8tdzKfmeT+M1 pVw7Xn8p/GgPE1FMdo8Uc5T+fl6 s1ZoVyjWsZAzCeTMZPDAM48nmoc u3YD0a81/0B9Mm8iXjK7DM 2mZUZBpgVZydnaGRy+WwGFwPh/g PrAxc1rlcVs2SMswme5z7bDo7Qj Zk0d8DBtwiybw8rW9xT3a6 hAqyUkqc3gkdWm0H/NPT0/r6Onz a9hTalKQLpHLIoE+n02jH+Vvk83 wRLQXmXMQfVlTFiV0Jrhs6 +bM62OClcx0dR78geGPJBQPmj5Z LjMUIKtTBdqcrBXV3taEVXBzQVM TZ+/b7PI6ZrASj2V1uItY7 tCWMWQw0Nvgsw8r2Mo7rcASBw5r 31WoV/SMHB29Xxh9fjD9O4KANxg g/Ynr104IF/l/IKx6zn7Ff sIYleQyTcXx8/Hk9lGceUOI0g3y yuxj5ww1DOBCeu6knKfsYJn1aT+ TXrp9ukNxBsMPtb5a45KEI hOY5ZSmjlJAPmFaYixdiyCBC6gp HlwO8Ex1REcnJkhM5DipC3JGBz1 GeUCvuQ05yhvlRr1+trd3f 25mwKVdCF2gEMdZ8sEBiCB7GRuv AsHJePsSH9Dmg1OZkRmdD66ZwiV mvIoozdpbzTPoirkTMglAo FBDpSfv6+ou62MQJ9WwxF0X9xR7 lz0MhckD4YPJzzVZlVFdmtSlcJH 3OsosdsdN5YrJL3CaSa7Yu 9vBNdVRVDzgDEVUFJgE09/DwYHr Q3tnZ+ecb8/y1Wh3CwAqaPOTScu DtomOyWvw7V5vMOXPK/q6G RehSRNDLYqnESnxCp8IN07vXJbi AoQtnC1s9BDxxhAiGF/8xBELGq6 nylLhb4mtGQ7hFvYsPLaqr VyGDYwEc1Hf9QeB1QFYkoRfEXSz ex3k0vYptlAf1BlaJYNzmeXRtVf 7tRxFfZj7TzjLFKDj8Ajxi x/7veVqX/Q1iEuiKZVdI1eOEHA/ D7KH80OtQN2dyeQAbo/X6nM9yGh n0AkIe8bLhx5nDBBslumhk w7F5Pt7KlFJ3JcEBH2XuzNMzq7p jW4DtdLe8Dz1BgEi9EB4rwWW2st BNvqtR+fvPxJN7kxsjx8ym Cqrffb6kZOHgyaWS1D5MUcFrb7+ vrkdB/GZvbw/+H6FEqMIhCED03d X8mdxOy9cLyySdvlRDY2a2 hprfHxmJEWwYBGnVajUIAgRjEpu TlELnHKqIJh3zmUbAxRGZjVzSC2 NnI4LZcHa9DZS0NbhkWqg/ 9V6P4qotgKBvJRuMamsPoDE7rxe TMU/EH4KXpy4k5gwB5VcYXdh4qN pMkDvoqhv8ZOZiMsM1U0tG /hLGyjHyiZ79Cg3F6tDUXnhWyFC j1r25TzFp4rTQtjnQqc0vGdTGyK NrNXHL5IIR4hZ/l619F6Ja OMhT8df8AfmfWFD3tY/LrshaS7e DiY3NLhXDLOw0V0DTqDMjlSKilg dquDKLX1R6wDt//BTOmWOR qvLxhb6kjlkWCpp+AzCdgUbaLLy ZUOee7w4ym/NM+aH6z6GGjRN42N o8hBCH/OSylW+PmrACy8as hBhCXPc48jBdm/k2fQhUqVWMBk7 E/lFJbEUWFQK0nRz+P0f60L97W6 u2VQQh07QRC/oEfimVsaMl +0/07EAC007IDCDGQsVdzgAfyAn mUOry4ksffLWXYGSaWD0URMSCQI QKm5ZTG7QFJGQK7y//ASWn PoOEAfDnNGV0kqRuwU7ndyCyXwt OIEBtBF4oiw31AP7Wq915RH81jf OvWEUrZm7Wfa9hNp32EsDj UNJ2XIQtDAqyQWp1FzA4BI9IWZE tOCDqaBboYVBzZBPpOdl1QZA7NM 9pBN4pWCXnWT06PTF2TVDq Ox0UEHNktUAuMMNjYgCsNWJHF6R deHQ3SINeQ4W6aNKoTSQrKH1+DW PaKV5jbs7hEDZah7UcKQj5 L7DrsOZlti1PzER2TQAlI05gZC7 BNJ9ioLisCgRmCx1wcMRfPP4HXc sOxC8QNwWhSFcl+RXvUQ/O Rvjprn3I0nYL5rm/zNHlVIz1OHU q+EXM3wFBW0fwKtMIpf1kJU+TYv XV34AAcjKn3vSDKLHhoQVr 9ANZ9qeFnOQSFurKIAhVZ9KEpSQ GmkPs6OsNUthplEAXMrhBeAYpz2 w32E9Cy0zRU+p6xRpqbBr6 hMtiMNznk8qqMFwxcq3To953/mF pZoxwiXaeiPF9K5+pNOIUis/QRa fE7ZSwP3PK42Hw7VwzeM2m Y2rC0BWdFs75f0bT/rvaYF5aSXV tGxVcWtng7ibKAbaJiT94/dK/Zh +EzWsGt7btceC/vN8eyhAV TM6jUe1UCnFnNTA9guEclG0uozR aFsjHVqSmWE5uem11AE1Uj941NF 56hyR1COQhZw4Mrx5qYq75 TxWeJOS4XVRlPQqpVNx5AeR0EB4 HDJVhUWPssTjbUEEwYKQmSvm4VF V5BG1yAW4kFDUdKJ78ASI5 QFZdBl2YMBZchCKbCAVgByHuSAL WT3MehFO4OBNwB8G0bSGbFXCvAM 4+XISpKK9nbl72TLOem6Pq GXo8H5BwgXNqyn6IqFW1ETTsH71 lZW4HNK2iyYftTbI5Dd2ydLXdKS 6CMraTaJAGS2faMTsa/hV7 wF2nlewFXxwTP7YIQYosxbeEnFj OuHmMvnSMl4lFKflGbJk0FPZphW w9e3hxyJN2iOUda9X4sq4k Aut+CgFMKbiHUU15vbLWm4VE00Q yKcgzoaZwNouMbmNqrqbkB5LY7m gdgWFznXJ89jPSPZW6HXhO TSFy5Q0tUA4myjuMWguVi8CQMLo QNEGTz5U2BIMgKXtKarNstKWFvb zNUSuNbOY9XwKreVioSzOe gInUucDWpPKRhHX2q3M2rB8eTPZ 5mcyAvDHZgsdioORkSAxQ3EbUE/ RWvRWgzEsfTtUTnHhw5AwM 45PvM7Y5R5vaJaFHI9EWQ17hGUW gzJIdMkvXHJHndq1xv5RPJXdl14 CBC63qp1O9zLDMhEwBhch3 fhAxGoEUbeh5GZF5krwZvl/ro0Q 3nhj53NROB+nLY6K3piR1XcAnRO Og8ZivsJ/+V5nmTPioEr8d lQvBKvcESg+340SDfRHxXGKLWvZ 18bwd7MxFC2/lJt8IJ0ren5UTlW iOFa1ZJ4HFjz2B6tCdNBBj SXRrxZ1hcjJH9jNEPTBJ1jgnjui UtzYMTtqER5Y10S6uAPuCcf2aOb ZXi/O7UoqokDaP32Ja5yEA 747pCndsATuP8F2SDbolDLoyuKa rsUTTN9lqvK+rjActifp6zm3UF8 igzHu813gDhmyyI9nwWvRh 0hXSN7sakINw1QcIOXKcAZnwGjZ gkKIteOPN1pg76iZtN1f7m07EtN 0iPommeUiRn/e1WBm3gNbZ UNffWeKxKEmWTEI+7IA2vaCqvG7 tZnp6R64Kk9Wdv3zn4T1/BRgAOJ Wdhz0VKX5hj5YsXELwAPTh QZ6mfh69TMRdl3EcNUk2K9HqpzN wlfJbTZEoWRBKB1Dif8RYg6ksKN LyLMy7PP10REZ3TBNsWdur N26fQXgoNf77LrSmTUH8OSUuYHa bSWq9UcS9QM0XEFQbhkAjLQSlHW VQE2Zli278jkOqhgWsRYQp GITxUp48YLLfDFSsCLqsJL9BZWi uMe3YUX1pu6XeWFLzLDZqZszXHQ enUxheyAEzI0KeXFGcFAXf o5MvZ4dunkl5nKHdQdTtGh4npZE qRI3WMleP1XfhqioOWulo+RQD7I 3anC4f5s049K6AxXpWux9O IFQRj4IYPUMxWZUymmraymoJ5ni MNKsltsM1YxEvUEDlYN+d2D+/XL kq+8XIl8tDSp9X2jJn4C/O /7BXdzwOEp9DvssxOffQAkkC4Qq bLGavZq/cl6Ivk5sZ8dpdBJiA88 n8Zx+ztb7hZcmMg2rNMiye m5/Qag76Mp6oBynFk/sip5px1+h 1T65XzzoclRFIiT5VTabWrjD/lT j0r0Okll4tF29TAyTYcZfN Fz1Ebfhq/Geovanna+YJi8jwkpKu3ti2 xSS3Mh6opw9oSjDoyR2ocDtCgAM TN8bxD7y+T4wJl2fSeG2aN /BR412YD5hm3H7UlkwvXXugw9Lk OejlpmcV39kcwAfqTo+1fqHZ3l2 RZ3w2UBdcNmBjw0VNMMo94 nlTJboJAucWR4z4OMZSA/0u7OW9 DtjaobHgEXfUHGIq7rMZqTy9j/B y32a/lj2VBhppJbhDoylq4 3geCJcr4p4Nh4zTHM9MZ4wUBCDK 00pd3lW0+chCAVv0zaVZ6PEDPOV VWB6WPtjfWuA1uWcaxo7tS ee3QOpI8LgJAB1F/pY+flgH4l5n se6M0N3Ug+w/kfE2GBGt4N+Zwf/ 6aOdRn58ytCkx0lhexyghg 51zhGzODMdwMz9l0tWeefQ+LL+G 2kaRN4z+T1aCqxu+473sVXRoxV4 R1lrfdZXT2yFcZ12qdBEd+ v8b/5x/xxkvYg8hp86p8//a5xEu 9jRo51w4+d83/jfOXeImXeImX+0 /lGS0qZG7tU5uOqXyTvMs/ JB5eYB7o7c0BpNhDfEtQ+0/iJV7 cNA1yS9pEwVe/2vFy/9a6fXj9J2 2X+0/aHK9nk3d52S3IT/ES /1Gs5n1AmEeS+KcaL/yzkHw0xM/ V+IH3n5x/3/O++cv59z3/3vsh59 XgMvfw1k2E+gU7V35rgQ3c Pu58zKKi04hdF2s/5Hza+yEr950 STEPHAN/4qma9aTuIxlo4E5N+7f2Q82 stl4uPqp/yvHi6YlkV7z62 n/Z+jLk739XDq52sst5o/ZDzae+ HnE97P+O39qyo68XiTfxt4k9M+b Z1U27ftG3wGp73ySVa21dw T3s/5Hza+dPo952JQO/8ata8tWs Rzaa0W7EGzN4Kt/nkz+3uDbaoVW 8p3cqiHP+GQnQ94qgbE9fd 4rCFH9hV29h046dz7itnL6mX2E7 3s4shodpv5bb4jizwx4s/Ller7E 98PXpJ8s/N9p509RP+kwR9 L2wp+otlcdiwOB67QjIrExiMxcp XplBGY+X/yUup7gJlvFbkddVheR egAmhaE1SVOwU/KhC0EgGp uEbl+afjwcTBMvb5FfH13m36exT Yia6MCUSleTpyeO4cD5j2Osumrv AGfDr5VEferVjHHlobI53M Nlj7/KNvujNBZv55jcLnobYk248 5oZM+qv555p75t/gr+8dQbWcrZd TXg1LLTN9iwW1aIVHe1t39 dxL74vK/mBcC8iPeTYcJyuuiacV bfmGN5rjC9c4vppi5kmizMmu2H2 H2x5mL0I48Rb52xI0NguBw G+XS/npiibY6b2mwj821ycba42u +wsq7tx7u70P4KhAtZM6ZbM2YGD SlzeG0Dxcs3vNGT5QA7TU3 t+2roKy/2GBd0q2dQvV1CLa6x4q 3Q/Cm8UKE1g5cAsFhYlLSBmcOEa DpNEwwOYssJYUYa8htL7Tn NSiFw/n4xFuznZnGlcKTMLaKLmd VE1vkdfVMuv/BIDr0tl1z8F92qL ofLA3+E6T3/adXOvgPkjaD zvU7mKKstO/vEhS8Q2N+jC68aYh WPneaNua9wwDtGdiNw7S9LH9Mdy NW80Bs85lpEz/cB+n/+8sy +/JJ9pz12PfsNhENJIX8PxOKRvc V3gZsKFCpEDvvLu4JwStB8EStkI yT0B5F7zOOe3Y7X3xW5It5 VX7bZ31FIt/yc7544Ln31T5LQQ3 aY9H030C54Pi9l740q0QSA8n8XP d7d+639cFuIIEHuKbXblIG dgPxpHgk4aTlOxJj3EKvrWkpwc9 azKJMjk5jGvcZQYa9pDCeE3lB2D 14rYAunKXKbIYkI1ceGYQM u4mLcD/q0AjLWl48zz78XGot/gD n3YrIDiSxIfwVI/UFhjM699BBj5 0k/xjg1yn6bM2P2i5ZGK20 d8byPLuGQQo/pSd4ozMNs+qC3cS a2483pYiOvS+6dm70VNfq3pehJd /doKG/G/weEnlE53AEaUl/ w7hwv/ml10v2x4ia1YIYUYrVGQM qmbo7hTcSiTWvgFwClFPAjSw5pt Gm4x4rMWAsDVbNA4xlGBjo GLs6u4OJjGZeIXfV5l1z+OEP/hh Hl7ZayXKR5GrXKUg9c40DZ1t2U6 RbxzlTDFiFILxCJnVd8g3f VFZi8SIepJP/3/4bCKDEi8/T4X7 zBfc8P8iX0AOTrKZQDjTXYq/yaD zeUvm4EZfy9Jjq2Hx5C8Sn 6j7qUWJrmjTBlBidUhnlVORh9EP uu9uP3WpZpByzlrVylM7nztnVQJ qzSRTDsae8R+gGZs+kG9QD Oj6YNV4jGAEl8AJAtOHDtTc6Pa4 b9l3oZtVamPw9uOAQRN72X3l/5A r4N3KNOQTGQlbYYg5lYby2 ZMm86P1RyKr6RNBMiqtJFn7lLCL BPnpzCX4hWgFSjwlRIV1nNZJw0C C7Wi1rbD646wzckoIKOD+j G6Q/us3v8ub6vQ4q8j1MUrAFMlf LOZFaPkoQe9h64RUr2nIdE+mmaH H5o4j0HWD0367Fbj8aGe1k UYQJphUQGIiTRVq2k5HeU5kZSIk 7p9C1CSaBv+LBJI5QVhPvoZvDWV It956qHG7kJDC1wqhYS0VW tZz5jslx55qAHSmcfy4bOJ2PfRA rx0La6KKm2XXfq63NWMXwKlR6vU O9gYOWU17mAdo5Ox6B/q7z 9p7EglebypIgwBFoCZ8oDRIvvrb ERMcMXTj1u8Xiv02AUPp5y9H6IJ eXk3LXJTiMVyPkrHsGYYLd 434yWEgxPHEF5YV9v92XYnxyo1X UuonVM+km6Y+rkes0Gz1uQtNuHe X9cQTJmIQWa51uh5AQdPpE kRfkiMBD6pIxasOxtsRc7NEmoHg QffsYKBjqOnCadaYYVk7aKVosSh PHVe3jVS0etW2LB+vT9cXi ieaIatJ337vmCpeKcymxEp1OuFo 1sUZvhWxUMZYUrbnQX0PLRD6Yst +40hNwZWKWvwwyGZ2Lu+gN J31gvIQ7J2Js+Sbpj+SmCD0Um7X SpGmVpTz3c9p20C0Ca8Y1IFKK9p TQXuBHNW6sNUA01MSccWZd +M4VbCU6++DbAo2pEMLZrCOMGZM UZIDSi8l5xJ9QcOQmcWzYmCDEfP m63LT/W6/acy+0h2fg3v3r Vezr0PYvxWGCTblKA8Z4atYZa1Y faAiC7rXKNHt2i1tKe/aGyjlBnc g0yAy20cOWwilpO1HmTAww j+FtuC3Ep0JYeLbApHwmg4ZpjSO KR0BY9gDdGeOpiWlg0UNY1E3sSn bfBM59ksUzyiBjptIIxTeX FcMoBzFsjGkkaEq2aAt3pTQTZMu I75qKvolJitKR5vawd3hQ00tCX5 mPoxYuoRqNx7IETSiofXTQ vA4sLdSujLh0dhLHX73gh/WKSDm uoeRxeJsh2gI2plz6fPxt3ZI5EI QTZ8+jHNwDIuWAMJNykDAR xoRFcZXSvIzwGgdKesf4wXFt5Ws VtObSyJ9U0nFlYpvspBjoFJXQuO YBUMVEYTr1h5Zbo29JAMwa x4F6CWbRd+DBDUqIDDegzIQbvAZ OeSu0oGVheXm8kB9oh6smG+pMuM Wr0B4ui2Eqqw7fgam1TN9Z 3MTZ8+YN73YNUyBUpMfxNYLg1DU m7ECeVqgUqlNbAd+dCjd+bZqKCz dm9X1HD69aNZNEHtWAMamA UJk1thZxbCuz5JErcKhkhZLbtW3 Cgzm7qZp1yCuOGFtS0kQ6dMBlvj 1S/q3Nfrs+q4UDCLjNIAmT akEmlSrNqwH1Uaaq/VFfF8Uxpz0 aCDXrxcVIjhWdTN6a4Rk4QgkqsX GGM+EHAE9JX6Ertwugj5fv 099l2ROcsLWeLMQDl2NWCD36eRt 7NQR58Q9BuX32XNZFqtcPVwMmPj Y9aBsCJGaJq0ITH9pPXxqr 5Q/j8K2aHEKquM2LS8QN/hJoGjr tOVJSaIn6Z+AGZs+ZQ1UNVpuLDL 7yLCNx0QQRaILYaMaxOx7e io5gHnZc1myWxCb01XyjaBspB26 y2Ob/hCcuErUuJUixZ9fLgOtq+m 22ndlZscL5CrZLWgDb4ALb +FUeaySEs1UbwkdOac9zCSJTY3n FbzXYgWsA2G5e0buBujFAMmRKkU X/Cru4NWq15OxUZBPIZdib rdy4xZwt6wDujSIAe1NeJmYErhq jiS2xMJ1XJgGD2wdoFS0n05S1M9 aJdkBKmpALkoZzpaKhHcdE w9TlhHg7StRWRq39NZT3CBAHpXb 6J/Ah0ZiyoHVRDtuwhJnZabxh0v Rgg9or7KCT0CIaNa4pcl54 w3ElszYKnkNxWi6wK2vAjzWanVb LZkCAkPAiPMDKNQoWebU7iXJMe7 pirmzfBtEDyHWd2c2rb7QV i63dPk1JUBUPJu6MWNOsKMRn/oV +CbEgXzjW1+2kFY2ioYyhoooUs/ EgYmjPMcNEp/49YGhhPa/T V5xq1pelpKmj1VGmdhw3cWsceiS gInj45kFnW9cbjE0KcsrgCbE/8m g/VurW/5fy4n0BrZwuaubf 502mIbadYuF38a11gZ6Muisl7hp r/95p8jL91BzXD+WeVUH/9yXAAH ocb7jOQmDkYEW6gwEohI5m lrTzPhsPTnFeGJ0plh32OT6Io95 0ZR95aaC6LKYlUp0Qed7lGb93Zm NwAFE4XWYgOSvgOQg7JzL1 UC9PLQDkYAVuvDquRCObWVAeVnp 1CSP4OW3lKL7xNQVbZC70DNR1CF MoQe2AXILnvWMpEMMbAxXt FQNBD7GlaGG2ODIyS5X0tHMqJFQ nZT4+FKCdDX4nnd94JGIaz9QcYW n4Y9LygSQhck3ZnHS0PABf N42hIH1BEW7teZioCmLeKO3+c3R eNIQfBXcGnsdEB2KlvdSD5/wUW5 SXlXprx1p738UEcVLBOTWi KOAQFdXCa3cHgbzba0VxMeV9K9k BEcb0W/stYvHY87U/8so9WLT5QG +0mQlhaS7gccDP3Xy+lf82 5b+NTXWz/Q9xzD/J2c7g40xoG/u 0BuF4EkH3hRxY3zG/L308vvr8EU ahqW5/kGoy6eX/// k46TyGo1V4N8xF9wop8/+O6n1Xp udAr1Gv+vlr860wRtObuR5YDTEu h3Sf6CJGlkXPa++v5PCkG4 00FIiuPoLMfgsl9YM1/Lz8Xy0+4 2YF12Pu4ze/3Pm2bw7L67/vapVD o5A34Wn49EvXeh4lqfch+t 9j+poizib6Dxg2osmn75W6wb04O sjb14/ibx1cneRxVk4tUAajiLT3 NPk9X+7Vk5epo7+ox7WLVz 5sW/zXtRI0d8rey9No/cb/5X/al We3uPWjiMd4agQlpkp2KoW6y/df O0dBxsWz4ET6ayPiBi4g69 9UfEbc7e7Wa/8WdaNN6Np/Zyd0O gz8gs8lV2I6x20ye0dal3uyb+XO ntEEQq6d280f+u7BVRdewz 39/zw1N1+/yl+SBorkgM9oHTlm0 Fy8U3QIPlm2G5zaDbRnrU4ZgkyV +2pvJUd3Za55UGpzHs887C Joyl+jA0FPRU3Vd9PBShJjFmAOh ZQhm5cE6xaHt7Wj62FJX4ch2q4l iFt+bfm5tcM+iHC2gJGFI2 xvsijNvyj0qlHz7rWE/8u9NY9f5 qKDXFylw/pWtvaf9hc/2YMyhWlv SrO5g9nO2/AVw+qvx+Vd2s VfpC9Aa8LW1F4JiG1+OsYsoA8Ef H5Oau5mGNy39+R/WlfFT/77+uqp +/68IQf/6+1IMUEGf/egEd 1HMIJKQTOIliM2MNrap2MXyDGxg qSt/w0l/ui3H39jurm372I88tBs fF+ji9ePZS3+w9RcgCLg2H emx9dF8a3Epjv6/uQ1Kc4906tb1 CjpehPXhy/2rg0gWTOTiRNIYvYy AVZSqjgrMs99xSRte7DHd8 ge7MDwD5EEinWh5nxkl/P60+Vym HhpjvI6mrO42kX9jcBcdhPMggi8 kDe20c9YjPwaw3nJzOEljD yM3SumyMcowfCqaoh9ExZEGVYb3 KXBoonrH8uy0cJ3kNMVElP0qTTU 1d37el+rI6SO0T11rK77Fg +q+2rW36qJel3S/k0sHDllr8y5T weeuXOrolw7PRLiv5QArofcl+0D weqTiafZ30zGHUv6gHQ85R Fpx5nD8m3Ge+chpFde44qX2zabu r5SZH0FTKhKnaOOaCXyur0rvVzq QhAbiUOiY5DVppmy9wM6dp +54f8Pd6u2wtwBFzmf1B8iPXt98 yUPnjhSgKlvpeULPKIKFf7Oi5JL qmcZHQW1cI4j6pUiSo5+Hk 5BuZHuMboz+FsuQ7uA/oBro0n5U c9tetuQ7/lRN8a15Lgd7xwDJErF Ndj5pVt4buCS45x699BJT6 0mvrOpha9D2nYv15kSYICjTTMec 5VI8Z/DFuQTBjpqBNcrf1y/7yuP f3x474CZny90Z8d9/r5ZMT zEEWWHCKMAgcOS3JOww00dt8pEU 3AIKOKh/BGkFtcStEGaCPx9NLm0 cD5fKtAqZD/QnoU5mVdWK1 3AVcGiSZR7OraHGYV9WLzMJXwFR QaNPF37BLY+vzAkKpk2qH4L3jYi Zm++FMDgByMmblUMbe0LPe y4lNYx8O3+woRfCVFw49dYrN6QD C8ABDgjNoQEV1DFJDxeILn7eZzz 7rJ6YX9qxroNsdeDA8zsfO aES6dgW6QE5N3HG8LInRVGaBv1Q R0FHh/Y2WTCWl9w1EEqvHSB9qUT a5Hs5u7AWs+ydjEHRyezTj 2ofdTj4lwTQIltGAFGaliY038g+ tdhWTGLts6FyVf3THlaIXfababv 8fz2Sh6eWOWy6LKWtobAME qaOgo+qfR7HIiEo9URMZuy7pbTE k8BzsxXQNcPCCVRCf0ZHFHuORFF P2iFCo3NoNwsRNmdpdBVUf bnPCrXr5ubUB+3D2zEDNHvaFFJe k5Ju179ljfyARSOyIEeKyLnG5Jr SHTjRF5pAEB0YZI6DpJha0 kHaQTOzw94ifa0XsDKtpXqFDFi9 j31ftIhxtF6hHHHrfo7JhsK5CVW sDJ+TfTOr8ZbpEPbT5aR0G Dek2shMUjBxyWpRW83DFKPxh/JG 0DX3k+o1QKJlkTWPmaAXi59RIV3 bvek0mIYuH3rIKgNb+f9zc ug82b6qa9n0vvoVQo57U9bkwbws AXmEEbfpL7PLlN5TC+WYvESffyC 9krVVWQlfaeM0XLwXbn01x hXWvbiq7Zc4CQ5B/Mv7C3osj2O7 4+KmIJr2kass3nXN9eq2cT4On+x nkPSKe8RarBkXe4AoSb27u PzLkw7x18+W6zFBNxYvVOoeZiZw 3jXldpoD2eeexw/DSKtg71QLYDQ dILQTZNrnRl4HB0YHp3ARc vgMQdFT5/py9BD37gn6au6HuggV kNk2x+FkY4yNzEeCV/Lvan1pDdB Xtgng1XPxIriv9LRvFHnDV 8vXekefGFqwF6pJm/ZZPLag1BwP D5I/3Cv0A7MMBLGFALf/oYJNL2+ uN0qUoFv6w1ALEVeQpTmYB AVDuHw9NIkHRKPMEJg0VRRCI+bB yljQQ2CNLXzOmZN6/uiW5r5yq5K YCFc50nRDUj0VwbsWJSKXP UUqXYdJq7GKzcbJV1GNBe1Mx6zk QTq2IzlcUU+LBM3vE61kVHFxAqO ZvEEgPR2zbp7gO79URMtUJ YZrMCkfaZcS3qbBdcHpWDL21P/S SSh4FQwzSMGSaPpdKl34wTWg0GK Z7Hv9X3GH6XFmBR9PDYhZJ zz2E8nZZRz9RMjYNay6jFJBsG0h TlTSM9pwU3Ew6YFyxhG7SYxPrSq DsKDiP4MSkz0aIBOp9IOnY SsdCTZdtQXTI2XsIukKtEAY3hFX x+MTxanLsgADBQE2zmwyD7ca1fZ 3TapSivi4HdNQNRIivUx2g EoA8CEgVuKbUrBMPfdMkCVXjPu+ IH3Rk+xjoGAMfHlf/WTwtqw+LZy jboAKb5xBP5SQglJ7+jSjr dR7ri2VtwWs66EDGNgrRd9FLfyB 0EWbhIGKWo12pIDfxKKcr76xwK+ wqDgs34kVmfQN8HDLGRbFe w+ai58mudAvJblyMO/HlmI4fS6I J8APH82Jggwil1WSuGSpHMjhPfk 6dUBJcQ1qAjJFWes1CWnDM vEf87ZceBwzHSUkjhHhUo2ezUgm u1HnjIGPygHSZ5hHBUPCDQ01TQW WUdcwpFN+GPR5xToq2arqO OGWsQ+vt80vFnHZy6bx2Tx0Qqu1 th2Lwvf9oGvUAQ+tXULo0Uwts8e pacOApD2gQSHtkZPMxv8oG Pscu9zLmPVhaLTJfOGBmEqDO+1w 8WFGWSxCZBJbD6Ij713ip4bMKVI zFY6zEBU4VTc3ogR80qNhM jj0DN+clVYKoM0Sb5SA8NLXvUOL xc8KzkZD617VFH9+Cbh7FH2QDSY QdI+aKZL54AxcBOdYmLcvW OjZ0J+jMeYTfH1CSESR/Bux2kKi aRvrgALEv42FMGeOc6zabYtp1JM vs0WxM5nWnDLJOQJGUEZhi OYNBNEHo1UfpRFUooA803dOy5MP cJauIn14sMFvD8a9JJsR4ZkkQxr kqKUAS7MmhRUJNjXSSLaLd 4Xz3VqPhZtGRqd6qlRAHl5ON0Pf 1dWhi9A8K7xv9KnSXAPAj9EvGP+ mDt7a7yBmrm6rpfFTdIc2P OxNBNHfosJ95jMrLxuxWY+jIHYC rr0yHuRBMNpkNpb88vv6hlJYthu 1RR3ZF0s1QSmumQD5aItxn sWDWEaxkBV2JZbk8fhdZozemRF2 Cwrd83yL6SXe1+WbGnwtJQ2owbM DZIZUsco2clEDRJy9hG4lB qS84eGTBKQiNoQjEAFWOrB40PSy GRGJYufLyXmVNK1Yx5AP9XMPAZf wKxg6DAA20Xo5Uop2bvcGt sf3ZNkABG+mWSNx9TcgWBi3iYY2 8vZBGmj8WNNQ+D6LbzJQEbk5c9Z CM9hbBOYfDSHC12NVrnLLM jIdY4YQv4qcWPTFXa40hHOvbmWy g6KghP+eBEtq05zczkPX7DBDJVq OgQ+ww3SniBWOa87N3X6Xz 7kfM1DT3RzXV4HQpG67NCtfsaEY JZmzPa3lDqr2tckGDAseWh9RyMN 2xtVrTmv37vz06n+r9ZRwR eOP1oOPA4mo93HTjZSceKowxgL3 KVZexcEPAVBP8i5knjQW0CL6ZD/ GLEy0MxpdyK1EAnHQyR+4v X+SQ/3KCDU+ThF9tj1CvysjmXbL /Y7mZUtMrzYBThbhAFA6Ra5DGJ2 c1hnNllYxiGeYQwgW38/TS YmEFGOZHXRq0xIyMOz4GJ5zkStO doHjH6mi0Lh7ZQtcKqvAQACswhu gXOxKIygu2drAn4VQjW3Fa RnUhiCFtkGHM/eWLzH/3PbPE5Tl DCHbFNnZGR74qg6iwpR3a+3+R2X tBWIulgiGqFwMNd/I6MQjr oooEDWJhuU1SSliXMktgHwtsDmK Q/sopa6EFoI/KRmDmel8AQvW+kM Jj8RzRwNppFFBgVFl/JysF NWPqsOAcuZznXQCAFy2eTmJKZdH SC/IEXvXKqwTOLbtMS2UDPWCGvN LMvQBQogmJo2pRJG9F2f1y LsPk7jnDERMD2icNrho7yLyusMZ CSBHHaAwKIJyfbtCywSRtBE7FJG 6xn3VeRAdhXQTyJotDIRka B72suFYbfZGnLOCnJICJO2Ggn7F Hn1piCFJjEQe3CQ50ZCY2IGVuAc bfS28fNTwmVd08RpRiAXU5 BIFoWXoqVPr9BfB1DJ8JDZRgacG bAMMsNTRXB3Lux469ocHymcYuMG SoQFAhXe64TDNpMDKaYXec JR2LIOigCx8PNH5ef6IkUWAjJOY mz5ZbTZu5M3QrjKVmeh9HeIO5OZ YcZ96oMJ8ATE3ouVtfHsC0 MT4+k8VgQZVlOJgTiriAF1/bOBq G7/AxMZkFm1nu5nkD9q5CKduBMj 8StJDv3Lik8WZvYfTMdftZ /rujWXToDwr2BWPdQ2cDKmpD3/I dPb22Agi8zX2GEN/AufyVZeBB/U /+TOCPfWEi3jNw5Qwy1qKD LJbzrRFNdFEVgJWnnC7UInt2U3o cFZYEmK21lJVx0m+O9S1s2R0ZKZ W7F9qkoTR1ID34gM+Px+Cs XFRvwe2/C86bvhAe96PaZ8W2di5 x4U2YGlTKk2MgzmENV5uBNHAJkd GWUr2MQEXdaMi+0HiUFxBn RJgUe3Eh+LfJ8nXILvrLMHzRVDJ TK9sGUppnMOfev7WljaobHSUIbc uzdg1T6FptT5kjbz2HnmtE jokqSoRgMTmqSQCGi59hCNJsI79 XTXCCQhZ+pzyE2WXlzfQq2gzN/e Yb+Eqml7HJfG7rUVu4gq9Y 6Y6Ms/rHspmUw+Xzh6CvMkXzqX1 cPsWQIA4Hk1nqMvlkPKEkfcM6Cy jrBpIg3MsYzSpu3iMAeJ1m Xgu3aSpLGMD1/OW1CiMfrPo39ag 3N50X6Ea6TIz62CKiGfwqHLSssD whC3o15wlnmO9Whb4SD3X2 Ix66KU7tcI1RMNAaPEp2uNNb8Hf lCdkIWHUlKJOZ2QFuB7AVCxWmCN T1HOtEzEb2k85cyo7InhF7 KY86vncZiXIdYuIp8Ar1v0lQf7J aXS6tFQKQNYRp9CMljzrPo5kIHk 1RvbU5bBrPoSjUubuQwOuz FdLuhnLqAKVrb9GMUC3l5KEz7Ov ZsAsQsBLaE9Gyv1eB7/JxTiIiqG TQoEISbCHalcRe6B4ARR/D Nd1x3yBX4i7h2YcPNztgnsMxTGN ScmoQDNb+UeC+x5gs1G1Zwp2Drw VW0kqSVQX+uvo9+fgCGPnY PEbXtD1Q5HjLa53pW60qt9hr1mI s/pFR2Bu4hO1VPknpap2WReTxtn odp/Lh23v+0bla9szUX4Ju h6qfQDrOzHTYlfJilo0qjcQg5Gc 5EmYtEeyeTcuIzSa6hiSa3Dxpfh tcfpcB6tlBY2aoKvXx660O Cn9LAW0SKx93VDoysRlladx13Ka aDz0QmrKt6fnSFFuZMufEmaJ+UY 9e/woNw8gmk47gSextUNWx vd8+//jW49IeOSgGh9J6Zk+fehz dMjGgV4FSi2y/nb1ndyrE5ND3Fp 9Zr9766gVOoc517u/iph5a 4ZVelVAOFOfxgg6pWbwDEHRrMsv V4LYGjHQpLrnz+RR7q7VclEG10s EiHI+mnzHC2wpnSODkT5Cx 3o+rReTEYzYjbeJxApHYiUeTEyc e5qmUd6T3lLiNo3qufkAXp+mJE4 41JuBQBiJQEjC8T4xiWlK8 /M0t1Zf1T5s1jFr3ppPS3MBBxqA AQnqo3FqXhrCFRGNIfoMPOPcRLy fZg8hb4A3l+1baXkpiMZ7U lhN3tOj/VRtiOelT20ZrSZQx8MD F/dSRDkq3HjL7MUAmJCurRlsY98 4F7+U/smolMsDR1898WIhS UN3CDdQGY0aVm1CzoiTAiaImPbf 5pEKiPHUPndIyziHZwAbD8gZ4QY F9VzamrswzwFKkdH8o6wxw iRwJ8Ys/n//nk45HhN+R73v//Wt 9XuvzWp/X+oxb7aaRouja/we5/r 3r91r/n/k9453qh/3/T69r P/tt28h8DHcI2UVqyNXcYziW4WB 0nnTx7wte3It+hijZ0UzcQfrBmi 0x6s0rgANInAs98yufZr61 eDSSA+g8lE+P9FCPEmiBGJZXMQp lVw16NkoW1PuKiGpexXUPKphLHW kWRbrXMTNhp7wHxjv8WyOe hsPzHENGXfin+yn0PwTpqRh4jIm 7m2QS1AvUc1Lo/vpxNnXg+59H6r pLpmhqqkYtVtBb6H/vhBeQ h527C3qdvzM2cC7gVcoyr+NfwNV NtQvsELfyuTsrpmNV9UYWCD7dAe nqlcN4xRlGa5XRmwo8Fida dJ5+Q/nz8QGo9lxQ3Iz4/7IK5eu m0Px+W9f6spbi/pwAPAHhLF5wn8 OCqOwEBDJv0CDy251Z3X1/ +FZ8Xjo1SPPlhp6S2f5282Ru2gy IfND33ZQ6KkPcxLCAx7D0fNWYeA 2zFdYjvUlLWcvhA9SviO+/ fwMMA16Kl5R3TK32+eb0K/4OJXh Pv+W7p38/2Zx+Rd7hA+/pt+Te6d 3KN8onjAsWwQy9Dyma2yAQ E4oGWBFTzNbX/eds/zjtgBd4h23 Y32sAhFMZcKgMOiYVPHNpdIlFwE PGwXewR6IxMCmUPUno0wra 8ohBoOUVHPErLTAFW0NVTwVexZN aIFUhdCLfEiTqJOkqwmglTLUb8R T6VsfWb5WdKqzn12WfRqvc 21RiTsMQGm0cd4HDeXw6nFj3fER Da9q0cG16aLcMqxRq97dY27bXw6 TbTGKXBWKr6KOW6QYCMEN6 LtQjWyBjEDBFiYkS1apFxeuUJwx BCJLQoKjTlToFU212akpfP2yPm5 oeDeLk7sCt4JNJzQgPQHjP +qpMevlGECzjYcLrSm6onJnOEhP 2EPoJNjx8hLjjadCQOAMkLvVkiS XTFsVlnUjD2ETGDi6Ze9bv 7hr4JNnHhUM9DY+u8rI5AEJuc1L XJhghTxw1g2GAOorwDxpxYWmB4u R51AEfjoDOzIjyxHg66YUW MPchNV8mlwQeoDjpRKHs0/5rWTW b4TX9NQgSM7P8TCEZoToF1Pj+ym d/h4d1LrCcEoHEqJ4UTaq5 B8wJ3izCBqWTxs/xDwvH7uDnq2n OutXF5EOazr4L4PGVCZqbJ4d4jp N2UXRzsEDpygQUTLKqcgZu 3b5FhW2Or9jawItNCDyNnyZwogI nKHyqEyw+2vnWlFzPJ74iokCxDu AKvK3E4esB/Qo3hmToNtUw 6yY1BUpBzEiUc9XFh7oDGEkgPTB LOlceJ0qXaKbhgBUZFbwVyd9rKp +CbcFo7pH48Iyxqhzo+M+v f/8///sf/bpvfT/5fFIoMI9kzGO beE5pV61C60cMBf59eZqAHsPn/h 7yCH9YvsJuwWWCWzTKax10 8WjUVPOQGUgtXbpbrPlyoMMiZum Syzbwp/OfXdbq2rQPVCe3OL/74W jvC9buPdqfI7ucAHv9AnE8 lgjb2nn2LPVtEilQ/TScjYLxORf wO4O914U1z5V+XrDWEg7/+nE2re EbgFsI8agIUffEJDrHUPZf H+oLAF0lCN/6Z/Lw/MNy9HO3jpV sPYSd434UiYSqWoQ29Mq+XKYZbD ZrFOzDMCG5XTOWLc3pHEAj 2xAw7wxFdGPEesX4+uaH7glVXqd xoayjHOYlxsfg7CAP4NL18Dl21C +PGK2Aohn7Zqw6MwBpJXk/ 5oEvEAi9dTAmxuRP0G8QqPYFrRJ 2/YJN12K3U83tQtIe7UvKSCXoLJ 3zZ3IjujmYNeGt8gpv+n7/ FWAAXi+YWt1XDD2kt4KsDXSdSUX oIW9bwr7wEOZqYG4jmq27GS5ZNQ 3zbZkiGvK5IJ4UvJM4oILz I3vCKC9RxPHeV58phOFvWVUkVq1 czLJvHV5XGlw/rKDqD0rsrPRxOV pfnk4e67r/PhElYP8aCdOQ YP7lD1TuxMs4fpNRwy6BJ6huPtx kIj8+Agz5BlrtsQ5tzDIvjT9lfo O8xU3iQTVuRgY1ttV5zJI5 FV9mQDx2aI3prGa7PhYpn0SqHUg GBQBJl9IbJHTqMR8vJQA8JRirEk D4QKroBImqLsPrYc1qVZ0o Gr1uFbkgRYxtXENsHKHpQADzXu2 KTKJoPIPqSuyUGBMqjU0jbbC5kx FlBNEeuXMqKo7dn4p1Oshc Td0sPd8bFSr1IvCsNcJaOYAaNq5 jiS91YUwxnxGsAg5RGODnSJMbBR JkZjpEZXNjcmlwdGlvbiBy CIX7XWJhlMJ5ZwFZEAWnTTOqZZG hTXLxkC6laoE0lX9yXJEsvRRzKx 3lepHdAMAxMcQtM78kA9sn kV4tDgNuImuzAHJeHGHpPDHdOBE 5tUpapgkeASR8Mxu5iFS3Ei2von 2vHF2rKD3gm60zbCCwFvCa Eu8sShLqBYMuLBKmJCKzNYkaaQ2 wGyrikO1ONUBwlWPoYi0msoFyCQ PzQsVfE50pQ1cqxY6uWcZx bY9yWhfyCCIpMUQcKVPnMUI5cBh jqwycMe8lkOC0pNwdF3Z9ydgvp3 JvD6ZvZ7TxOC4rodYaIgGf WY9xYwnqYGLfESOoHUX8eR3nGjP vNVH6VUOnkRV+WqOqFE8aMP8lDx BiWon8AMamYo6lLXydDWob lU6qYkIgJFH5HTCflDG+CiAgICA wIPPvLSo1zQF7PN1jwCS9WWM2TZ 3iXSU5XAO3UXOcUGMsHrV5 YdP3UYO2WnMlYH76mPH0OR4swSU 4IEN5SS5QBMPvNTAdFJRjJEonyY xRMZKdQIA2BYTphIO+MjAx FH0oBT3kItPaPiu2PWa2SS3aCMf uOIjyaF8jUh4upNCqLLZlRBE0OZ 4KICAgICAgICAgPHBkZjpQ sh5hgTEqrq8dy8BSJxHdLbSlMpb kwNBkDgXgl2C3V4MwXhlhMIKrGO MbVZC8cX3vTA11SS5neO0d ikTRZW39zTqaElWuNaVqIvxcKIa iONyiEJN3PD9jByN9PPk4OSNnQp I2FXX5SdlhrS6uRY39LC6c sS3dwiANFI6UIUOzNYNsWRHuTAu ptB6RXueqi8SenyBeYRH+dXVpZD ipMdgsUVVxXY41CTCvMSA9 MzMpGRJvIo75HsI0Y8SoKnU8PVK 6R6nwfG7MJcyum2YemcWyEYR+Ci SbUNUjQALtGQbyEzsft8Dh YXQ+HDFrcCwjGJLxk33rtMViYX7 xUlmdy4KyGSZ+CiAgICAgIDwvcm ZuGnAie7DyuAR5wL0lJhyg RDX5U6CyTnfIIHU+OhtsvQq2gSL tZXRhPgogICAgICAgICAgICAgIC AgICAgICAgICAgICAgICAg ICAgICAgICAgICAgICAgICAgICA gICAgICAgICAgICAgICAgICAgIC AgICAgICAgICAgICAgICAg ICAgICAgICAgICAgCiAgICAgICA gICAgICAgICAgICAgICAgICAgIC [...] ICAgICAgCiAgICAgICAgICAgICA gICAgICAgICAgICAgICAgICAgIC AgICAgICAgICAgICAgICAg ICAgICAgICAgICAgICAgICAgICA gICAgICAgICAgICAgICAgICAgIC AgICAgICAgICAKICAgICAg ICAgICAgICAgICAgICAgICAgICA gCjw/uMSxZ1zofCVgtoT6GevkBc 2CUwGkLWH5gpTqgU2giqEm YmoNMTIgMCBvYmoNPDwvRmlsdGV dS7LnGUYqXSPwt7JtK4FjzrQ9HW ZuEAHzC9KuEHDtI90bIF9B oOUbP09imuO0zD0+s8XqKJKfRLm b1yX0ORUFhFGJl23wcKwJXMH9mn lqrka7FPaRZXwOVHGiiKru ziFcJSYXY3AnOKM/QXN0cqyXOaD CCMzJJMxGQlKjLOA8lwCbgU2nbl RvYmoNMTMgMCBvYmoNPDwv FgylbFLiQ9FxBHKiOCEmh2XfP3A hfcR3UFEiOOEiV6SbGWs0P19vNY 5RwGZjZ22oblT8iB4+c3Ry JFKqFHdl5fM4DaQOxMTNlh5SRBc BmY8qXXuP6VKkDkWhcLGuILStDQ CwPDBJAGRPEzEL23J5qW/B kgRLAX8ilZq/iAN1jPfviztUyJ7 OAB4Aw4xVjr1jvTZ45Gz+DQplbm PhiMNfVI7HHR3ad2GcONL5 AAYdb8DvFJg8M2BjX49cEYYabn4 lTDmsQ98mrE5gajIuY3JaWQQaN8 RvciAxMj4+T4RixABkrr5P kPA7COEjA83bPE8LGQo6FFQDMbK QJqX1FUFYAXW2EbCUUMZwKTQACo lFREExNkI+PEMyRjYxNUVD EsGMYUU9UGF3XoX1PfYWQDN4WgK DO4O0Et1vRA6dhrCrAbAnTRBzTS JoE1OqAEFgI3Qcg9YyCYae HIYSZ2DoycUtDHioEGhkFC4MDwS sR5jnELTlOEBnEq4kcXOpNG5BKd jeYmJgYGBizPFmYmDoYWJg hjfLcNbbTI3GwWDXMVAc2OHf6NP zFzSFNIaSBmD6HcDWfqNcITMKRH UXkvyuKZzumwCqgPXmNB4L QI5mc7CnAXQ4JIA0iFQnOg5MRMU 8GKtsMDPJBu5U Approved Order:gabapentin (gabapentin 300 mg Cap) 2 cap(s) Oral TID Qty: 180 cap(s) Refills: 0 Substitutions Allowed Route To Pharmacy - [facility]/pharmacy #[id number] Signed by Gerard Allen MD 08/02/18 15:19:00 From: Gerard Allen MD To: Lizzy HARPER; Sent: 08/02/2018 15:20:01 EDT Subject: RE: refill OARRS reviewed. Rx sent. thanks [facility] Coding Summary.on 07-06-2018 Coding Summary. CODING DATE: 019 FINAL [facility] [place] STATUS: Home (Routine DC) PAYOR: Medicaid EA DESCRIPTION 0663 PAIN ADMIT DX: REASON FOR VISIT DX: M54.5 Low back pain FINAL DX: PRINCIPAL: G89.29 Other chronic pain SECONDARY: M79.7 Fibromyalgia M47.816 Spondylosis without myelopathy or radiculopathy, lumbar region Z79.1 assisted (current) use of non-steroidal anti-inflammatories (NSAID) PYMT PROC EAPG STAT DESCRIPTION DOCTOR NAME DATE NOTE: The code number assigned matches the documented diagnosis and / or procedure in the patient's chart. However, the narrative phrase printed from the coding software may appear abbreviated, or result in slightly different terminology. Coded By: Rebecca Salinas CphT Date Saved: 07/06/2018 02:14 pm [facility] Consultation Noteon 06-27-19 Consultation Note Patient: [...] TID, # 180 cap(s), Refills(s) 0, Pharmacy: [facility]/pharmacy #[id number] meloxicam 15 mg Tab: 15 mg = 1 tab(s), Oral, Daily, # 30 tab(s), Refills(s) 1, Pharmacy: [facility]/pharmacy #[id number] Documented Medications Documented Misc Medication: Mobic: 15 [...] list: All Problems Anxiety / SNOMED CT 34644454 / Confirmed Iron deficiency anemia / SNOMED CT 204740231 / Confirmed Venous insufficiency / SNOMED CT 87161651 / Confirmed Vitamin D deficiency / SNOMED CT 08707449 / Confirmed Resolved: Anxiety / SNOMED CT 36367713 Resolved: Chronic venous insufficiency / SNOMED CT 96402943 Resolved: Iron deficiency anemia / SNOMED CT 512377877 Resolved: Low back pain / SNOMED CT 462637400 Resolved: Malabsorption / SNOMED CT 23739409 Resolved: Vitamin D deficiency / SNOMED CT 89992206 Objective Vital Signs 06/24/2018 11:02 EST Peripheral [...] of motion. Normal strength. Integumentary: Warm, Dry, [place]. Neurologic: Alert, Oriented. Psychiatric: Cooperative, Appropriate mood [...] evaluation, assessment, and plan of care. Normal [facility] Comment on above: Result Comment: Elec tronically Signed By: Tammy LANDIS, Gerard Hernandez.nuha\Date and Time Signed: 06/27/18 09:16 EST Message - [employer] Officeon 0 06-16-2018 Message [place] Office From: Sonia Jade To: [facility]; Sent: 06/16/2018 08:18:06 EST Subject: reschedule office visit Patient called and rescheduled office visit. 06-24-18. Normal [facility] Coding Summary.on 05-30-2018 Coding Summary. CODING DATE: 019 FINAL [facility] [place] STATUS: Home (Routine DC) PAYOR: Medicaid EA DESCRIPTION 0663 PAIN ADMIT DX: REASON FOR VISIT DX: M54.5 Low back pain FINAL DX: PRINCIPAL: G89.29 Other chronic pain SECONDARY: M79.7 Fibromyalgia M48.061 Spinal stenosis, lumbar region without neurogenic claudication Z79.899 Other shelter (current) drug therapy PYMT PROC EA STAT DESCRIPTION DOCTOR NAME DATE NOTE: The code number assigned matches the documented diagnosis and / or procedure in the patient's chart. However, the narrative phrase printed from the coding software may appear abbreviated, or result in slightly different terminology. Coded By: Rebecca Salinas CphT Date Saved: 05/30/2018 01:38 pm [facility] Consultation Noteon 05-23-19 Consultation Note Patient: DEANA [...] day(s), # 120 cap(s), Refills(s) 0, Pharmacy: [facility]/pharmacy #[id number] gabapentin 300 mg Cap: 600 mg = 2 cap(s), Oral, TID, # 180 cap(s), Refills(s) 0, Pharmacy: [facility]/pharmacy #[id number] meloxicam 15 mg Tab: 15 mg = 1 tab(s), Oral, Daily, X 30 day(s), # 30 tab(s), Refills(s) 2, Pharmacy: [facility]/pharmacy #[id number] Documented Medications Documented Misc Medication: [...] list: All Problems Anxiety / SNOMED CT 37276296 / Confirmed Iron deficiency anemia / SNOMED CT 984588380 / Confirmed Venous insufficiency / SNOMED CT 52798011 / Confirmed Vitamin D deficiency / SNOMED CT 11063659 / Confirmed Resolved: Anxiety / SNOMED CT 09054423 Resolved: Chronic venous insufficiency / SNOMED CT 87848177 Resolved: Iron deficiency anemia / SNOMED CT 800806244 Resolved: Low back pain / SNOMED CT 552365219 Resolved: Malabsorption / SNOMED CT 78481155 Resolved: Vitamin D deficiency / SNOMED CT 68707196 Objective Vital Signs 05/19/2018 09:44 EST Peripheral [...] of motion. Normal strength. Integumentary: Warm, Dry, [place]. Injection sites well-healed. Neurologic: Alert, Oriented. Psychiatric: [...] evaluation, assessment, and plan of care. Normal [facility] Comment on above: Result Comment: Elec tronically Signed By: Tammy LADNIS, Gerard Sanches\.br\Date and Time Signed: 05/23/18 11:31 EST Message - General Officeon 1 06-23-2017 Message - General Office From: Lucy RevelesOil ExpertRadha Dotson To: Mili Koroma PA-C; [facility]; Sent: 04/22/2018 14:03:31 EST Subject: gabapentin refill On hold pending signature Order:gabapentin (gabapentin 300 mg Cap) 2 cap(s) Oral BID Qty: 120 cap(s) Duration: 30 day(s) Refills: 0 Substitutions Allowed Route To Pharmacy - [facility]/pharmacy #[id number] Patient left a message requesting a refill of gabapentin. Patient was last seen on 04/18/2018 and next appt is 05/19/2018. Approved Order:gabapentin (gabapentin 300 mg Cap) 2 cap(s) Oral BID Qty: 120 cap(s) Duration: 30 day(s) Refills: 0 Substitutions Allowed Route To Pharmacy - [facility]/pharmacy #[id number] Signed by Mili Koroma PA-C 04/22/18 15:36:00 From: Mili Koroma PA-C To: Lucy RevelesOil ExpertRadha Dotson; Sent: 04/22/2018 15:37:18 EST Subject: RE: gabapentin refill OARRS reviewed and refill sent. Thank you From: Lucy RevelesOil Expert., Michelle To: [facility]; Sent: 04/22/2018 15:40:22 EST Subject: FW: gabapentin refill From: Lucy RevelesOil Expert., Michelle ([facility]) To: Lucy RevelesOil ExpertRadha Dotson; Sent: 04/22/2018 15:58:11 EST Subject: RE: gabapentin refill called patient, left a message to notify that rx sent to the pharmacy Normal [facility] Comment on above: Other Comment: Kat banks Attachment - attachment storage system not supported (04/22/2018) lang Can be viewed in source system Coding Summary.on 04-19-2018 Coding Summary. CODING DATE: 018 FINAL [facility] [place] STATUS: Home (Routine DC) PAYOR: Medicaid EAPG [...] Lee Date Saved: 04/19/2018 09:54 am Normal [facility] Main OR Intraoperative Recor don 04-18-2018 Main OR Intraoperative Record IntraOp Document Type FTPM Summary Primary Physician: Gerard Allen MD Finalized Date/Time: 04/18/18 14:00:42 Pt. Name: DEANA CROFT /Sex: 1970 Female Med Rec #: [id number] Physician: Gerard Allen MD Financial #: [id number] Pt. Type: P Room/Bed: / Admit/Disch: 04/18/18 [...] Kwon RN Role Performed Surgeon - Primary Publicity Manager - Primary Scrub - Primary Time In 04/18/18 13:51:00 04/18/18 13:51:00 04/18/18 13:51:00 Time Out 04/18/18 14:02:00 04/18/18 14:02:00 04/18/18 14:02:00 Procedure MEDIAL BRANCH MEDIAL BRANCH MEDIAL BRANCH BLOCK(Bilateral) BLOCK(Bilateral) BLOCK(Bilateral) Comments Last Modified By: Babak RN, Cammy Hilliard RN, Cammy Hilliard RN, Cammy Verma 04/18/18 14:00:37 04/18/18 14:00:37 04/18/18 14:00:37 Entry 4 Case Attendee Bethany Edwards Role Performed Registered Dental Assistant Time In 04/18/18 13:51:00 Time Out 04/18/18 [...] and tissue Entry 1 Skin Integrity Intact, [place], Warm, and Skin Abnormality No Dry Outcomes [...] By: Cammy Hilliard RN 04/18/18 14:00 Normal [facility] Main OR Preoperative Recordo n 04-18-2018 Main OR Preoperative Record Holding Area Document Type FT Summary Primary Physician: Gerard Allen MD Finalized Date/Time: 04/18/18 13:07:58 Pt. Name: LANG DEANA Funez /Sex: 1970 Female Med Rec #: [id number] Physician: Gerard Allen MD Financial #: [id number] Pt. Type: P Room/Bed: / Admit/Disch: 04/18/18 [...] By: Kinsey Radford RN 04/18/18 13:07 Normal [facility] Operative Reporton 8 Operative Report Patient: DEANA [...] 70 mmHg SpO2 99 % . Normal [facility] Comment on above: Result Comment: Elec tronically Signed By: Tammy LANDIS, Gerard Hernandez.br\Date and Time Signed: 04/18/18 14:01 EST Message - General Officeon 1 06-12-2017 Message - General Office From: Jeannie Sosa To: [facility]; Sent: 03/30/2018 11:41:15 EST Subject: Tmamy - Auth - 03/30/18 From: Yanique Mcdonald ([facility]) To: [facility] P[facility] Procedure Prior Authorizations; Sent: 03/30/2018 13:17:43 EST Subject: office notes needed /Emily From: Yanique Mcdonald ([facility] Procedure Prior Authorizations) To: [facility] Procedure Prior Authorizations; Sent: 03/31/2018 15:05:20 EST Subject: Tammy-pending Tanya[facility] Due Date/Time: 04/12/2018 15:05:00 EST faxed office notes, med list, PT notes-Litzy, Lumbar xray fax coversheet-scanned to chart From: Yanique Mcdonald ([facility] Procedure Prior Authorizations) To: [facility]; Sent: 04/07/2018 09:26:32 EST Subject: Procedure-Tammy care p james 03/30/2018 [facility] DX M47.816 Emily letter of approval scanned to chart Auth [id number] exp 05/01/2018 From: Elisa Kay ([facility]) To: [facility]; Sent: 04/07/2018 10:48:42 EST Subject: 2nd call Kit Left message on voicemail for patient to call back to schedule injection. From: Elisa Kay ([facility]) To: [facility]; Sent: 04/11/2018 15:30:08 EST Subject: RE: 2nd call Kit Scheduled procedure for 04/18/18, scheduled follow up for 05/19/18 at 9:30am. [facility] Coding Summary.on 04-07-2018 Coding Summary. CODING DATE: 018 FINAL [facility] [place] STATUS: Home (Routine DC) PAYOR: Medicaid EAPG DESCRIPTION 0663 PAIN ADMIT DX: REASON FOR VISIT DX: M54.5 Low back pain FINAL DX: PRINCIPAL: G89.29 Other chronic pain SECONDARY: M54.5 Low back pain M79.651 Pain in right thigh M79.652 Pain in left thigh M79.7 Fibromyalgia M47.816 Spondylosis without myelopathy or radiculopathy, lumbar region Z79.1 terminal gauger (current) use of non-steroidal anti-inflammatories (NSAID) Z79.899 Other shelter (current) drug therapy PYMT PROC EAPG STAT DESCRIPTION DOCTOR NAME DATE NOTE: The code number assigned matches the documented diagnosis and / or procedure in the patient's chart. However, the narrative phrase printed from the coding software may appear abbreviated, or result in slightly different terminology. Coded By: Shellie Vásquez Date Saved: 04/07/2018 02:09 pm [facility] Consultation Noteon 04-04-20 Consultation Note Patient: DEANA [...] day(s), # 120 cap(s), Refills(s) 0, Pharmacy: [facility]/pharmacy #[id number] gabapentin 300 mg Cap: 600 mg = 2 cap(s), Oral, TID, # 180 cap(s), Refills(s) 0, [id number] meloxicam 15 mg Tab: 15 mg = 1 tab(s), Oral, Daily, # 30 tab(s), Refills(s) 0, [id number] meloxicam 15 mg Tab: 15 mg = 1 tab(s), Oral, Daily, X 30 day(s), # 30 tab(s), Refills(s) 2, [id number] Documented Medications Documented Celexa: 40 mg, [...] list: All Problems Anxiety / SNOMED CT 14093306 / Confirmed Iron deficiency anemia / SNOMED CT 394357123 / Confirmed Venous insufficiency / SNOMED CT 10267428 / Confirmed Vitamin D deficiency / SNOMED CT 01630665 / Confirmed Resolved: Anxiety / SNOMED CT 10380709 Resolved: Chronic venous insufficiency / SNOMED CT 61744748 Resolved: Iron deficiency anemia / SNOMED CT 390244256 Resolved: Low back pain / SNOMED CT 132236630 Resolved: Malabsorption / SNOMED CT 84095111 Resolved: Vitamin D deficiency / SNOMED CT 93509049 Objective Vital Signs 03/30/2018 10:38 EST Peripheral [...] joints. Positive axial loading. Integumentary: Warm, Dry, [place]. Neurologic: Alert, Oriented. Psychiatric: Cooperative, Appropriate mood [...] evaluation, assessment, and plan of care. Normal [facility] Comment on above: Result Comment: Elec tronically Signed By: Tammy LANDIS, Gerard Hernandez.nuha\Date and Time Signed: 04/04/18 10:51 EST Coding Summary.on 03-22-2018 Coding Summary. CODING DATE: 018 FINAL [facility] [place] STATUS: Home (Routine DC) PAYOR: Medicaid EAPG [...] CphT Date Saved: 03/22/2018 09:53 am Normal [facility] Message - General Officeon 1 05-22-2017 Message - General Office From: Lucy Oil ExpertRadha Dotson To: [facility]; Sent: 03/18/2018 15:28:54 EST Subject: appt/refill Patient left a message requesting a refill of mobic and gabapentin. Patient will need to schedule a follow up prior to refills From: Randy Newby ([facility]) To: [facility]; Sent: 03/21/2018 08:49:58 EST Subject: Scheduled 03-30-18 Called patient and scheduled for 03-30-18 @ 10:40 with Mili. Patient stated she will need her refills on Mobic and Gabapentin before her appointment. Please let patient know when refills are ready at [facility] in [place]. From: Randy Newby ([facility]) To: [facility]; Sent: 03/21/2018 12:18:26 EST Subject: Refill Mobic and Gabapentin From: Ellen Walters RN ([facility]) To: [facility]; Sent: 03/21/2018 16:25:09 EST Subject: Med Management On hold pending signature Order:meloxicam (meloxicam 15 mg Tab) 1 tab(s) Oral Daily Qty: 30 tab(s) Refills: 2 Substitutions Allowed Route To Pharmacy [facility]/pharmacy #61 On hold pending signature Order:gabapentin (gabapentin 300 mg Cap) 2 cap(s) Oral TID Qty: 180 cap(s) Refills: 0 Substitutions Allowed Route To [facility]/pharmacy #61 OARRS attached. Please make any necessary changes to orders launched. From: Ellen Walters RN ([facility]) To: Andrew Moe MD; Sent: 03/21/2018 16:25:30 EST Subject: RE: Med Management Not Approved: Order:gabapentin (gabapentin 300 mg Cap) 2 cap(s) Oral TID Qty: 180 cap(s) Refills: 0 Substitutions Allowed Route To [facility]/pharmacy #61 Not responsible for patient Signed by Andrew Moe MD Not Approved: Order:meloxicam (meloxicam 15 mg Tab) 1 tab(s) Oral Daily Qty: 30 tab(s) Refills: 2 Substitutions Allowed Route To [facility]/pharmacy #61 Not responsible for patient Signed by Andrew Moe MD From: Andrew Moe MD To: [facility]; Sent: 03/21/2018 16:45:44 EST Subject: RE: Med Management Tammy martinez From: Mandy Roblero RN ([facility]) To: Gerard Allen MD; Sent: 03/22/2018 07:14:13 EST Subject: refills OARRS attached. Please change gabapentin to TID and review Rxs and modify if needed. Thanks On hold pending signature Order:meloxicam (meloxicam 15 mg Tab) 1 tab(s) Oral Daily Qty: 30 tab(s) Duration: 30 day(s) Refills: 2 Substitutions Allowed Route To [facility]/pharmacy #[id number] On hold pending signature Order:gabapentin (gabapentin 300 mg Cap) 2 cap(s) Oral BID Qty: 120 cap(s) Duration: 30 day(s) Refills: 0 Substitutions Allowed Route To [facility]/pharmacy #[id number] Approved Order:gabapentin (gabapentin 300 mg Cap) 2 cap(s) Oral BID Qty: 120 cap(s) Duration: 30 day(s) Refills: 0 Substitutions Allowed Route To [facility]/pharmacy #[id number] Signed by Gerard Allen MD 03/22/18 12:23:00 Approved with modifications: Order:meloxicam (meloxicam 15 mg Tab) 1 tab(s) Oral Daily Qty: 30 tab(s) Duration: 30 day(s) Refills: 2 Substitutions [address] Route To [facility]/pharmacy #[id number] Signed by Gerard Allen MD 03/22/18 12:23:00 From: Gerard Allen MD To: [facility]; Sent: 03/22/2018 12:27:20 EST Subject: RE: refills OARRS reviewed. Rx sent. thanks From: Lucy RevelesOil ExpertRadha Dotson ([facility]) To: Lucy RevelesOil ExpertRadha Dotson; Sent: 03/22/2018 13:20:36 EST Subject: RE: refills called patient, left message to notify that prescription sent to the pharmacy [facility] Comment on above: Other Comment: Kat banks Attachment - attachment storage system not supported (03/21/2018) croft Can be viewed in source system Pick1 Officeon 1 05-21-2017 Message - General Office From: Lucy RevelesOil ExpertRadha Dotson To: Tammy LANDIS, Gerard Sanches; Sent: 03/18/2018 11:27:05 EST Subject: lumbar spine xray patients lumbar spine xray results are in chart and ready for review pdfCD:[id number] GCq5HTnGXOMGo1JAJpj7GqYbq9B h1GpHb9PFNjU2HkZSQaSSLmd6Uy IAovTGVu W9GoFQr2WTVNYr4Md6IyPWWmGme wwEcud1X8TA8Yj1XeqveQJWVD4k wBKF6pIqzLj1e9+yBjxagL khewXf/0Drxr5SDyGgcpyBcdnTQ YUbszrwa1ZJKV6tfCogKoPpfrvG KqqalPv9J2MddkTnv2nZaR SCqsU63XhWwNrOXVAbojfEDoRPQ 4dGA2EJFu9QOTJ+MkVUlAdyKvEj yg8nBn5P2b+wRB9UI2H0qL fnQF/zuJd8PytkDsvYsnepWJEnQ u1S4IFmQ8A3fh+PLXYjnTNlzzAy IolcWTsHZLXyU0Wi+kq9D/ v3GjEVCpxVJpTHuRvYzgZaFgcY9 mrZkSCXxalX3uNjF8FH+j3E+rIb Bz5POpkMfP7Y7B8nY/rYIh qYMGcnGmdyz3KC/8LH52dk0g93R Z2omsxO3nTx0HG6mqrSOdOQgKJ4 PwAKxfljw6E2j0wH59tMwn kBlyKqldusai55iC5Ia9dzP57LZ o/2koIWmMmZddg5EuZvjHqwWhjz UMJdB9aVHeftXCpq3wCocU Wur5moyoZ/vh4feDIlnfFDZbrUX 6GolBHGNpoOz8WUr3rrcHQdIeoW 60OyoQ+OLvhYXqI2q6GtCQ uXJ3RYgsnHnSfZDnMpiD+LuKd4R sQff0iRBZ7AbA5kz+evEb3DDD+9 GfdJODyrS3CXQ29EvhYHw8 EgE93qBIyKvlMU0HYkOMjgT9r9b 1q5fxloXRgSKHDgmWkYg1kyvDWf yIPz1m5erfogSi0kcQXG7L kbtlYr0wSj9klwl7nq5Mg6Prk56 kOMlzcWR8+66TzhAocI58YOMoI5 BavxKfY7SeQvtyO5561IYC vKuDxZX4xFzJCuqYzPtGKTubn2r rL4gUgs4/rfE4m3KWW1zWtypMiN XfiON4X2/zPjcbJVkijirO qu5U3+aR4vlGT4rxBWqMydNCmmk X1HYj12QJ9Q0tdOeHSNx4uPaTAl A4LRGqIap3BCBaX7iEnBYz 59GEce3Y2pe6rWIbw375Y4f1fot x4xd34KGecBm1gNWnUiltXHGvtD G1zqx6MGh6td5P5V0mQGgU yVwl5/xJLDOx84JQ4F3hURm42rR gz4g69A5+HhRJfVq3DX2Ga7DAb/ WbMLEe3Bel/T4rT5bU2MS/ 774lPOFkhqcKsdHWqpno4lOeEg2 K4/JixNR1/V96on5olGba3q25yy poIwsA8BnrVc7/s6lW5/fl ABx7bPN2xlhz+v2G5EoFOOVyDAy Zy+szHh/k9Ky91vdcn614X7r70D Ay/W//KMI3w24WHR3Nk2J5 f50hVissre3lp9wuU+4e/wIJhpq BSaNkPLQ2xaEmcUpqsgWtPrxSHy GdMJ2ecse7CBkgYUKkTR31 JUlzFFWBUTVRA1Jog950gvAgkeO 7UBlgJ49ll1TQeDToTSA3ALexMM ThFCBrvCRMUgU1OIPcHjGo Yz7TWB7Kuu2rB3I8HJoxEAAQZZ0 MPSj4ZDUgLy2qgJA9AUlqN422il G3KXPfIwNzX9hafZTiIRPc MCBSICAvSGVCbyAxMSAwIFIgID4 +Lori+OcswMh7Za573KT71jjP0HT NfQjGwYw5ApXLvYP3GXBru HUrrMAQwgSWHl8bcYxMmYPC9TIZ mLdjsGYXQIz2EXO2ie4BcGaulRJ DzIahUITdNW9TnlpVrlQRn ZYQrTnQdSl0CvLKuMDl1UAEwGm9 sFh7Qc0DwqWFxCLmvFLuhYKNtOD FnZXMgCj4+VjFaVI0hvoah DJKmw4ZmAxs5Ra5EnTKhRGe1ZKC cAi2sWc3Rd5NvkLZlBQrkCCfdHA AvUGFnZXMgCj4+MsArXZ8f hounFeHrKZ8pjeb5QHg+PgplbmR gGlnIUBRiTQ7vktx9QDzeWwcwc6 RoQSVrEkSmUI3lFPUvPBLo ZRIXEPTGJ0RjY0FLy6NwKP1Gx6W Zq32qUVswHHDkSMLhBbMbLWAtPX twE9X4rFsxDDLoUzPqWFLt TMkpSVfkICMlE6U7TDetQyHSBi7 MFM0mi2MzAeQhNNUjQgoHXk3GY8 GSAFHtNUI3PCOyZaEfJUog ayGhLzxSFKCpUN9ledg5EVumGoq duNKfNX6TzCT2BMBuB83bRVRAZ5 akfsq7nVQzSWs1MYxyWoMb IAo+NxsfzLQwAC1GaNxtxwhYV2x Wh8+3E55XmpKNpGFhqVOEKH09XZ EuKjEJEErAkAAiNkRUcERR kaYIMijggKNDkbEiioUBUbHrBBl W1KDwAMoVLBPjTw+8ee/Ww45i00 9ji58J1Sanypd6BLR1xhOA FOrIpBunVAAc99FRsLgjCOnRVFR LK7pW8IWll5CW+QTCrID16MoymZ Q0V407ObC8+zyYR9eSBB+f lLlZIjEAUJiM5/C72ZdSX1p0QSc hJmcKkMl8MK2UWRqMUgyDIqgVd/ WlZ9a5sJWWBmChfTxEf1LO 9yLi3Rha2515Oh2EgJXRH+cI+Lk zmuMjd1CEgnNUe+SxGXxONgAokt ol2xNFGOdnD4ZoJgJm37dZ 4EjJX/XGD5tOonELA9DHvHspZuH niBkmXFOGjZMTi+JEa15zk6LNUM 85mFTxRgrIWDwf4WCARy/8 HIF7fKeqJhaMPQl3ZJ9yms6s2E9 d/WkD75gPYeX/7hlEH/jD9ld+mQ 4EkNSildt8q40bGQDt5uAC u/2HzWAvAIqyvnUOfXEeunxeUsT xWDydf4hiVClDu1qcF+jv+p8Of0 QqrE3Xoh1w4HA542W1ogPq S207zlX5atBFnB9juXbY1k+H+B8 H/xTyEiP8PW0BS7ETRTwgWRDOld BhsKJDJQbJcqC7p7v8A2N+ gVd7nfmv+RBXumaFpYKaJK3mKLh iJZMCg4Xg6W52P8PZM/jGp0FAhG 37z4L+uTf1DV8CLyV/jmNH IVH5QdHS2Co9CfR2VHDOPGVzQOk oAxPABLbAEbgAD+ADAkEoiARxYD HgghSQAUQgFxSAtaAYlIKt RTxfSkQlVEAFAnIHgCMy4OC8Hn0 Co7IC4CGNZQ6ncQkdYfzHWOIUwS CQWms7UFRURIPEUKTe4UHZ QxFQHJQIJUNCSAIVQOugUqgcqob qoWboW+dohFb3PR1Ao3RGtSI1RQ oHIzAJpsFasBFsBbNgTzgI xwQPsbabZqynCwS0yPTcD0sS6fM Dv8ibUZfIO2XxPGHZGYlbqwFUFl YPRlX3QKwYKjsWOlNCsBGt oC3bD2sYMQSzyYgZPdPLFWIPjCo COmLA7hDJvTmnMvRbWOuSnfb+1F JITQzP2BNWKrtncwOK7UI4 YJjWwJcyBjmei3Su4MCjFdL7+hU Qk4HeyPZNUX1YWDIKfpWhIgMw63 90rHoZjXEqoMjhTtEa93gQ oXFqPwstldu7VTuWhyQ1vy4VR+J 6xDR9I7f4WbbqvFNtCaWawDtqA5 gZvBLeEO+RN0Fc9NmbUtiZ fA9+CD+JraQcL3jKlgYJEayjKtT Y1BR0D0mWnQWgMuHYJwAzjbR1hf aMUUL1CzxqqeBZRAWeVhaU LGLiNe6ogRHpBf8yt5tYDZ1rGWl L8vLpKd6c8jq/UaAqWCoEKPAUVi iBWQVdZMY2psxEJKF4WAhl eP6GxAkXlMgprVOsmUgFlvVYFiI Wu7QZ0DqQuFKR7QZ6ICeZwhDoh/ NP5SwDPTJG9oUuIAue+yhn LDXGhEbPOTJ12WHMVhuL9aaEHaC iYxLPhjE3c2uXtPwRsndlZpIVrv tPaiGUVS4bC4CL0Pt4Zpbg +sO1K5FoZO0Cqwow9QlAX6hi8lk oxwyx2ItQ0xDK1D5gP5G85SROz1 l3qd/XMNiOsEXw6Wir8Vnd 3GMQhT9LPF9spigF22jPcFXIIVZ 9N1wo3zqNuXpZ5bRJxaSn7gdo0X Uvkp2xxny6F/tA9aXXTmxQ R6CzQ+mjvdPSKbXJdl8qQRSrnwU 0aw71Buk0duD2J3rPuzP6zRurpg f0Cfos/JZ4Vxy9+lMGOgYh AfOMfUz4IiGHCMDOv33X/YavjYy JKbp2FCGISGAXGh2xodczIy6aUq NyT9hm0mVhaIBochHBL11b dgoECfC2JeGdRNbah52awYWnp49 MEpTUBlMQsvkFZ2sR01XNw9bpfu mQDSUuJv19LS8VHFpGR10m 5xt2iI5slJ8jqO9GqvLNxMXj66R ez37ULvp1ckmuIBEg33er81xAzT 7vqec940J3720wV5M/wb7X /eTUa9ZLes0m9gFTTeOx0uKWy8E UQ23nnDcTE7t0pLB96zER3bKU0C zY+RrHtqcsV9gAf3pY0/jz MilYego5sqqgOeBlJEmFz73wYdu vf046w/mPD80PblaNp3XqhGau12 VDC90DZoYiZf/HkPf4KbWz d3Xbz2yRj8IA6kRgW+2q61aZF3r 05LdGa98ldv0dc4V/kP82/xsBWg HcgOaAqUDHwJWBfUGkoAVB 9EFAkz2RHoG6OQRRIJz9hHnlKgg C76tXmpPZ3M1c65BNj5lXlN+OCQ 8Lrwl/UWUASTTFg2H6VCyM mmXoAg6pdxMcMZvUNfS4zbLpQ2K bo1/WzIwBd4jsuLUGru0X90iHzI XHY+Km03owmdc9UYf0mCjW UhI09wty42T0fr6r2ccmobx1HnH scWAWBcLCYAfmru70pJbTcyLJgT G2F5s8vG5v7tRrG76Uq4Tj urdu/mTfC6NmHqJPg1Rl0aPDepfkX Q8dUGEoQXgtt8p7oyey9ZJcsm4v l4Qc25C3eMiSODCWTdCdux dEGxMsfsuMZXx2WVbKspYLXvEeM 7ZTYFv1J9tTYQf5ZFvCYoAoRn68 ZTk/LaEkt1FG2aqyVdDIwE 8k3LJ/I4343siJrERvFghAcdjlR 0pefK+fBFjqAmxnwgim9vFu3Ze6 9KuIW8fVh/YWVjFC00pK9g MANCILLA+MYaIuauG3iihqovIRSdT1Bgx qbUxW2zlHWPov3xsyEY5UqBUGG7 7AU0csd+RdiauXmHxXW49b bkKvzJtycQ8UnSmk6xvg8XzbRWd ugx1s6y8bhTVDJ4bZeli6a+y8UG OMTzoVqDafM2zKCAqyHYO7 gqx8xFd2RD0HVTvkCg3d7lh3ulw h6KEA31acSEvi414dYQ/Ner/6zg jhzii0qQ26+u15Czq5k455 yjwOl8k04zR+4D5noEiAon1Nsp0 hub4eaYGmtXTlGLUFp154j0Qiid wmp8a1mg2IzsKRUt+b+O31 w0GHe4+wjrR9Z/ayrNj6o5WB1wz iNkIZ8lUnonrbEgy6eAmJxwhty3 vv9x/POGZfEKA96GpTjyQY k75jx8g+rZAo3rfd35I6B7uyuHg 8h34xbX/wbNDZ8+x8i37x8+w/ed 71/XSYgtyBLjWs3TjahDjz lM4c1ie3KluDMEK1dhcVmz31Wl3 Jcwk54du3epCZfi+tofDf8nTN/J Xk14IPj07GfSJ0nnt07Qk2 fzr2r55X4TrpQ1933O0YgOb0zkj dhlC1uD4vOW5+5c166YTMovrn2J EnP2X/3T141VC8EjFNrgJx S0wQlfZ8Tb5/Xvh4/OgFp8cbxY9 r/1w8nDXQm788/DIwFTs1/lz0/N Ovm1+ov9j/0q2u32HY9R8Y Ta9oJwu6UK3a1S9hji+2vLoJV4d bzl7gI9y+4FdS4DKpp3nQy69B63 Tz+gtiyvYjrNKjGL8DWH8r h9HzRfDxDMJzUfpUBVmSPq6PVL5 sf8IsEeHfMUFhh8EbZay8Oe7Nsn FgHLjsVrKzR8kwNM8vtYZq N26elW7uAPjjN5EinFxjORLaJJn sVJJrZq9BYT8sIH8IDZZfPAniPo MuJHFhapRiJ9habRFucEwl WK8Ln4cbZUlmBBgzIZNeXt0fhSP UQb0AZF7gy3OlZsjcQXRvSnyOZA tEY8YlE99deW9pRG0VhP9H wgZiAQ8gm9HrfcklFc3AsXU6cSK tMA0GcNAzQMVUC56hvBSzU3FjoP BmBl5SJSZuLi6kuJCoK814 kopepsRUB5O6aUJlI6ZjwzGzCn4 +GcCtZA8xtikdHYDtXP5whit2UZ ifNY3rg2RtkvcbE2nbarBz h7mMhkQeJVnhWuMPP7Z0BtN3oCZ lV7H4iMNsADfaLgBzPUJwUJRlkg OMH4Jtk3TIs319PO7XHFy9 OCEeW4FzRh7BsSQmDR4Fz313BEo +PgplbmRvYmoKMTMgMCBvYmoKPD pHM2Gqw3H3J6ZjXEeSCuR6 RVBCQaZGgoMmsC5vPWRzIN0uMhF bGCCsBELuLjMJMY1QT4NaLAbeA2 KiYXRat02YZSDbKBaBOtDq OEcuFGF8ISFhHuX1Vw68FaDmSzx uRn1Gp9BYZQWoPQuCNsLhXJvbDK T5ZXAvWgA9Ax21FaXpTpci Cj4+PpJoMJ8ybsb2ygChMmFjUFA UVQWhMJTbWADzYAL1YFBuFVBiBL foDTEpGXLlFBZ9BXQjGMHx TS1zEpZbKZFsMGIfTlvmOHWeYVG soeCIGYUhXOBkLCM3PYLuIGOjVN AyFNtsJEChWPJsHUG7GRJl MDKeVQ3sKbBnWQFxRMQ1JJXnSLQ wJNAxfvCQRPAjFYQyFEM6SVOhVS AwMCBuIAowMDAwMDAxMjkx TJOmLQCfZB7uTxJqACCqAMLoKjW gMDAwMDAgbiAKMDAwMDAwNDQyMC AwMDAwMCBuIAowMDAwMDA0 FAEyNZHaGNSjFQ1cBhDmQHZqWWS zMDAgMDAwMDAgbiAKMDAwMDAwMT QyNyAwMDAwMCBuIAowMDAw AZD5BaC3PZGzDYGwQZ5zUbPqXUu jIOGJCLwKW6YjboKvYGDrWr2Flj GjTOUyGLQwOqRcVt5Ie568 IDEgMCBSIAo+PgpzdGFydHhyZWY YALo3GRdfQKAJIup= From: Mili Koroma PA-C To: [employer] Radha; Sent: 03/21/2018 12:37:07 EST Subject: RE: lumbar spine xray reviewed. FUV as per care plan From: Erica Roblero RN To: [facility]; Sent: 03/21/2018 14:58:22 EST Subject: FW: lumbar spine xray From: Randy Newby ([facility]) To: [facility]; Sent: 03/21/2018 15:11:57 EST Subject: Appt 03-30-18 Patient is scheduled for a follow-up 03-30-18 @ 10:40 with Mili at [facility]. [facility] XR Spine Lumbosacral Minimum 4 Viewson [...] Aguiar MD Transcribed by: lion Technologist: KRYSTLE [facility] CNCOon 07-22-2017 CNCO Letter [facility] [employer], [place] [address]Hghju: [phone]: [facility] [place], [place] [address]Thwhd: [phone]: [place] [id number] [place], [place] [address]Cvjhx: [phone]: [phone] Free: [phone] [email or web address] mari Luz M.D., Ann Weber M.D.Timothy J Adamowicz, D.O..Liang Hamilton M.D. FACROSaju A. Rajan, M.D.July 22, 2017TaBeth[place] [id number] [facility] [address]Rgts Ms. Croft,You missed your scheduled appointment on July. Pleasecall our office to reschedule. If you need to cancel any futureappointments, please call to give us 24 hour notice so that we can offer yourappointment to another patient.Sincerely,Roni Coon M.D. Normal [facility] CNCOon 06-24-2017 CNCO Letter TextNorth [address] [address]Kdscg: [phone]: [facility] [place] [address]Beydf: [phone]: [address] [address]Kjmrt: [phone]: Toll Free: [phone] [email or web address] mari Luz M.D., Ann Weber M.D.Timothy J Adamowicz, D.O..Liang Hamilton M.D. FACROSaju A. Rajan, M.D.June 24, 2017Tataylor Dieze[address] [facility] [address]Dtkv Ms. Croft,You missed your scheduled appointment on June. Pleasecall our office to reschedule. If you need to cancel any futureappointments, please call to give us 24 hour notice so that we can offer yourappointment to another patient.Sincerely,Roni Coon M.D. Normal [facility] CNOVSPon 05-27-2017 OVS Visit (SP) Office ([facility]MAC[facility]) -------LANGDEANA ([id number]) 1970 FDate Time Provider Department05/27/17 2:45 PM [...] kg (201 lb 4.8 oz) BMI 33.5 kg/t9Cdyjlys Appearance: alert and oriented, appearing in no [...] per Nadiya Coon MDReferring Provider: RONI COON [[id number]]Allergies As of Date: 05/27/2017 Noted Allergy ReactionVENOFER [...] Status:Closed by RONI COON MD on 05/27/17 [facility] CNOVSP Visit (SP) Office (HEMACL) -------CROFTDEANA Cruz ([id number]) 1970 FDate Time Provider Department05/27/17 2:10 PM INJECTION JULITA MIKE HEMACL During your visit today, we recorded the following information about you:Doris Roblero 05/27/2017 3:02 PM SignedPatient Identification confirmed: yes.Injection given and documented on JUL per provider order.Doris RobleroReferring Provider: ELLEN SONG [[id number]]Allergies As of Date: 05/27/2017 Noted Allergy ReactionVENOFER (IRON SUCROSE) 03/05/2014 4 - Hives 7 - SwellingDate Reviewed: 05/27/2017Reviewed by: Doris Roblero - Fully AssessedPrimary Visit Diagnosis:Iron deficiency [E61.1]Order(s):[facility] NURSING COMMUNICATION [[id number]] Order #: [id number]: 1 STANDING [] cyanocobalamin 1,000 mcg injectionDisp: [...] Status:Closed by DORIS ROBLERO on 05/27/17 Normal [facility] Metabolic Panelon 05-27 Alanine aminotransferase (ALT) 18 U/L Normal 7-38 [facility] Comment on above: Performed By: #### I CATRACHO, LD6, CMP, FERR ####[place] [phone] Albumin 3.9 g/dL Normal 3.9-4.[address] [facility] Comment on above: Performed By: #### I CATRACHO, LD6, CMP, FERR ####[phone] Alkaline phosphatase (ALP) 177 U/L High 32-[address] [facility] Comment on above: Performed By: #### I CATRACHO, LD6, CMP, FERR ####[phone] Anion gap 14 mmol/L Normal 9-[address] [facility] Comment on above: Performed By: #### I CATRACHO, LD6, CMP, FERR ####[phone] Aspartate aminotransferase (AST) 24 U/L Normal 13-[address] [facility] Comment on above: Performed By: #### I CATRACHO, LD6, CMP, FERR ####[place] [phone] Bilirubin (total) 0.3 mg/dL Normal 0.2-1.3 [facility] Comment on above: Performed By: #### I CATRACHO, LD6, CMP, FERR ####[place] [phone] Calcium 8.5 mg/dL Normal 8.5-10.[address] [facility] Comment on above: Performed By: #### I CATRACHO, LD6, CMP, FERR ####[address] [place] [phone] Chloride 113 mmol/L High 97-[address] [facility] Comment on above: Performed By: #### I CATRACHO, LD6, CMP, FERR ####[facility] [address] AveCManson, [place] [phone] CO2 19 mmol/L Low 22-[address] [facility] Comment on above: Performed By: #### I CATRACHO, LD6, CMP, FERR ####[facility] [address] [place] [phone] Creatinine 0.86 mg/dL Normal 0.58-0.[address] [facility] Comment on above: Performed By: #### I CATRACHO, LD6, CMP, FERR ####[facility] [address] [place] [phone] eGFR (non-black) mL/min/{1.73_m2} Normal Cl [facility] Comment on above: Performed By: #### I CATRACHO, LD6, CMP, FERR ####[facility] [address] [place] [phone] Result Comment: eGFR (Estimated GFR) Units of [...] Glucose mass conc 65 mg/dL Low 74-99 [facility] Comment on above: Result Comment: The [place] [employer] (ADA) provides guidance for cutoff [...] Standards of Medical Care in Diabetes 2016, [place] [employer]. Diabetes Care. 2016.39(Suppl 1). Performed By: #### I CATRACHO, LD6, CMP, FERR ####[place] [phone] Potassium molar conc 3.7 mmol/L Normal 3.7-5.1 [facility] Comment on above: Performed By: #### I CATRACHO, LD6, CMP, FERR ####[place] [phone] Protein 6.3 g/dL Normal 6.3-8.[address] [facility] Comment on above: Performed By: #### I CATRACHO, LD6, CMP, FERR ####[place] [phone] Sodium 146 mmol/L High 136-[address] [facility] Comment on above: Performed By: #### I CATRACHO, LD6, CMP, FERR ####[place] [phone] Urea nitrogen 17 mg/dL Normal 7-[address] [facility] Comment on above: Performed By: #### I CATRACHO, LD6, CMP, FERR ####[place] [phone] Ferritinon 05-27-2017 Ferritin 28.3 ng/mL Normal 14.7-205.[address] [facility] Comment on above: Performed By: #### I CATRACHO, LD6, CMP, FERR ####[address] [place] [phone] Iron and TIBCon 05-27-2017 Iron 68 ug/dL Normal 41-[address] [facility] Comment on above: Performed By: #### I CATRACHO, LD6, CMP, FERR ####[address] [place] [phone] TIBC 309 ug/dL Normal 232-[address] [facility] Comment on above: Performed By: #### I CATRACHO, LD6, CMP, FERR ####[facility] [address] [place], [place] [phone] Transferrin Saturatn 22 % Normal 15-57 [facility] Comment on above: Performed By: #### I CATRACHO, LD6, CMP, FERR ####[facility] [address], [place] [phone] LDon 05-27-2017 LD 186 U/L Normal 135-[address] [facility] Comment on above: Performed By: #### I CATRACHO, LD6, CMP, FERR ####[facility] [address] [place], [place] [phone] PROGRESSon 05-27-2017 PROGRESS HNO ID: [id number] thor: Roni Snow: (none)Author Type: PhysicianType: Progress [...] kg (201 lb 4.8 oz) BMI 33.5 kg/d4Rumrnoi Appearance: alert and oriented, appearing in no [...] ICD10: E53.8B12 per Nadiya Coon MD Normal [facility] Remote CBCDIF (for [facility] use o nly)on 05-27-2017 Abs Baso 0.03 k/uL Normal 0.00-0.[address] [facility] Abs [place] 0.53 k/uL Normal 0.00-0.[address] [facility] Abs Neut 3.55 k/uL Normal 1.45-7.[address] [facility] Basophils/100 WBC Auto (Bld) 0.4 % Normal [facility] Eosinophils 0.14 10*3/uL Normal 0.00-0.[address] [facility] Eosinophils/100 leukocytes 2.0 % Normal [facility] Erythrocyte distribution width Auto Ratio (RBC) 15.8 % High 11.5-15.[address] [facility] Erythrocytes (RBC) 4.36 10*6/uL Normal 3.90-5.20 [facility] Hematocrit (HCT) 37.1 % Normal 36.0-46.0 [facility] Hemoglobin mass conc (Bld) 11.5 g/dL Normal 11.5-15.[address] [facility] Lymphocytes 2.73 10*3/uL Normal 1.00-4.[address] [facility] Lymphocytes/100 leukocytes 39.1 % Normal [facility] MCH 26.4 pG Normal 26.0-34.[address] [facility] MCHC mass conc (RBC) 31.0 g/dL Normal 30.5-36.0 [facility] MCV 85.1 fL Normal 80.0-100.[address] [facility] Monocytes/100 leukocytes 7.6 % Normal [facility] Neutrophils/100 WBC Auto (Bld) 50.9 % Normal [facility] Platelet mean volume (PMV) 9.7 fL Normal 9.0-12.[address] [facility] Platelets 211 10*3/uL Normal 150-[address] [facility] WBC (Leukocytes) 6.98 10*3/uL Normal 3.70-11.00 [facility] CNOVSPon 03-30-2017 CNOVSP Visit (SP) Office ([facility]MAC[facility]) -------DEANA CROFT ([id number]) 1970 FDate Time Provider Axfgbsiivy37/28/17 11:00 AM INJECTION JULITA MIKE HEMACL During your visit today, we recorded the following information about you: Temperature Pulse Respiration Blood pressure 98.5 degrees 61/minute 18/minute 130/71April Osbaldo 03/30/2017 11:13 AM SignedPatient Identification confirmed: yes.Injection given and documented on JUL per provider order.August OsbaldoReferring Provider: ELLEN SONG [[id number]]Allergies As of Date: 03/30/2017 Noted Allergy ReactionVENOFER (IRON SUCROSE) 03/05/2014 4 - Hives 7 - SwellingDate Reviewed: 03/30/2017Reviewed by: Doris Roblero - Fully AssessedPrimary Visit Diagnosis:Iron deficiency [E61.1]Order(s):[facility] NURSING COMMUNICATION [[id number]] Order #: [id number]: 1 STANDING [] cyanocobalamin 1,000 mcg injectionDisp: [...] Carrillo Status:Closed by OSBALDO DORIS on 03/30/17 [facility] CNOVSPon 03-01-2017 CNOVSP Visit (SP) Office ([facility]) -------CROFTDEANA Cruz ([id number]) 1970 FDate Time Provider Qefbuhnqct78/30/17 11:10 AM INJECTION JULITA MIKE HEMACL During your visit today, we recorded the following information about you:Doris Roblero 03/01/2017 11:22 AM SignedPatient Identification confirmed: yes.Injection given and documented on JUL per provider order.August OsbaldoReferring Provider: ELLEN SONG [[id number]]Allergies As of Date: 03/01/2017 Noted Allergy ReactionVENOFER (IRON SUCROSE) 03/05/2014 4 - Hives 7 - SwellingDate Reviewed: 05/20/2016Reviewed by: Bhavya Horan - Fully AssessedPrimary Visit Diagnosis:Iron deficiency [E61.1]Order(s):[facility] NURSING COMMUNICATION [[id number]] Order #: [id number]: 1 STANDING cyanocobalamin 1,000 mcg injectionDisp: Rfl:Prescriptions [...] Status:Closed by OSBALDO DORIS on 03/01/[address] [facility] Ferritinon 03-01-2017 Ferritin 16.8 ng/mL Normal 14.7-205.[address] [facility] Comment on above: Performed By: #### I GORDON HAYDEN ####[facility], [place] [phone] Iron and TIBCon 03-01-2017 Iron 46 ug/dL Normal 41-[address] [facility] Comment on above: Performed By: #### I CATRACHO, FERR ####[facility] [address], [place] [phone] TIBC 354 ug/dL Normal 232-[address] [facility] Comment on above: Performed By: #### I CATRACHO, FERR ####[facility] [address], [place] [phone] Transferrin Saturatn 13 % Low 15-57 [facility] Comment on above: Performed By: #### I CATRACHO, GORDON ####[facility], [place] [phone] Remote CBCDIF (for [facility] use o nly)on 03-01-2017 Abs Baso <0.03 Normal 0.00-0.[address] [facility] Abs [place] 0.38 k/uL Normal 0.00-0.[address] [facility] Abs Neut 2.47 k/uL Normal 1.45-7.[address] [facility] Basophils/100 WBC Auto (Bld) 0.4 % Normal [facility] Eosinophils 0.11 10*3/uL Normal 0.00-0.[address] [facility] Eosinophils/100 leukocytes 2.0 % Normal [facility] Erythrocyte distribution width Auto Ratio (RBC) 13.8 % Normal 11.5-15.[address] [facility] Erythrocytes (RBC) 4.58 10*6/uL Normal 3.90-5.20 [facility] Hematocrit (HCT) 38.5 % Normal 36.0-46.0 [facility] Hemoglobin mass conc (Bld) 12.0 g/dL Normal 11.5-15.[address] [facility] Lymphocytes 2.51 10*3/uL Normal 1.00-4.[address] [facility] Lymphocytes/100 leukocytes 45.7 % Normal [facility] MCH 26.2 pG Normal 26.0-34.[address] [facility] MCHC mass conc (RBC) 31.2 g/dL Normal 30.5-36.0 [facility] MCV 84.1 fL Normal 80.0-100.[address] [facility] Monocytes/100 leukocytes 6.9 % Normal [facility] Neutrophils/100 WBC Auto (Bld) 45.0 % Normal [facility] Platelet mean volume (PMV) 9.7 fL Normal 9.0-12.[address] [facility] Platelets 233 10*3/uL Normal 150-[address] [facility] WBC (Leukocytes) 5.49 10*3/uL Normal 3.70-11.00 [facility] Vital Signs Date Time Vital Sign Value Performing Clinician Facility 11-20-2024 12:31-0400 Body mass index (BMI) [Ratio] 32.28 kg/m2 Summer Workman PA Work Phone: [facility] 11-20-2024 12:31-0400 Body temperature 97.5 [degF] Summer Workman PA Work Phone: [facility] 11-20-2024 12:31-0400 Body weight 90.72 kg Baynote Workman PA Work Phone: [facility] 11-20-2024 12:31-0400 Diastolic blood pressure 84 mm[Hg] Summer Workman PA Work Phone: [facility] 11-20-2024 12:31-0400 Heart rate 94 /min [employer]note Workman PA Work Phone: [facility] 11-20-2024 12:31-0400 SaO2% (BldA) [Mass fraction] 99 % Summer Workman PA Work Phone: [facility] 11-20-2024 12:31-0400 Systolic blood pressure 128 mm[Hg] Summer Workman PA Work Phone: [facility] 09-12-2024 13:08-0400 Body height 167.6 cm Baynote Workman PA Work Phone: [facility] 09-12-2024 13:08-0400 Body mass index (BMI) [Ratio] 35.99 kg/m2 Summer Spinal Simplicityman PA Work Phone: [facility] 09-12-2024 13:08-0400 Body weight 101.15 kg Summer Workman PA Work Phone: [facility] 09-12-2024 13:08-0400 Diastolic blood pressure 72 mm[Hg] Summer Workman PA Work Phone: [facility] 09-12-2024 13:08-0400 Heart rate 69 /min Summer Workman PA Work Phone: [facility] 09-12-2024 13:08-0400 SaO2% (BldA) [Mass fraction] 97 % Summer Workman PA Work Phone: [facility] 09-12-2024 13:08-0400 Systolic blood pressure 130 mm[Hg] Summer Workman PA Work Phone: [facility] 05-04-2024 10:23-0500 Body height 167.6 cm Joey Daniel MD Work Phone: [facility] 05-04-2024 10:23-0500 Body mass index (BMI) [Ratio] 35.51 kg/m2 Joey Daniel MD Work Phone: [facility] 05-04-2024 10:23-0500 Body weight 99.79 kg Joey Daniel MD Work Phone: [facility] 05-04-2024 10:23-0500 Diastolic blood pressure 82 mm[Hg] Joey Daniel MD Work Phone: [facility] 05-04-2024 10:23-0500 Heart rate 71 /min Joey Daniel MD Work Phone: [facility] 05-04-2024 10:23-0500 SaO2% (BldA) [Mass fraction] 97 % Joey Daniel MD Work Phone: [facility] 05-04-2024 10:23-0500 Systolic blood pressure 140 mm[Hg] Joey Daniel MD Work Phone: [facility] 01-19-2024 13:55-0400 Body height 167.6 cm Vinny Huff DO Work Phone: [facility] 01-19-2024 13:55-0400 Body mass index (BMI) [Ratio] 34.06 kg/m2 Vinny Huff DO Work Phone: [facility] 01-19-2024 13:55-0400 Body weight 95.71 kg Vinny Huff DO Work Phone: [facility] 01-11-2024 10:19-0400 Body height 167.6 cm Summer Workman PA Work Phone: [facility] 01-11-2024 10:19-0400 Body mass index (BMI) [Ratio] 34.06 kg/m2 Summer Workman PA Work Phone: [facility] 01-11-2024 10:19-0400 Body weight 95.71 kg Summer Workman PA Work Phone: [facility] 01-11-2024 10:19-0400 Diastolic blood pressure 70 mm[Hg] Summer Workman PA Work Phone: [facility] 01-11-2024 10:19-0400 Heart rate 76 /min Summer Workman PA Work Phone: [facility] 01-11-2024 10:19-0400 SaO2% (BldA) [Mass fraction] 97 % Summer Workman PA Work Phone: [facility] 01-11-2024 10:19-0400 Systolic blood pressure 112 mm[Hg] Summer Workman PA Work Phone: [facility] 12-06-2023 13:47-0400 Diastolic blood pressure 76 mm[Hg] MD Joey Daniel Work Phone: [facility] 12-06-2023 13:47-0400 Heart rate 73 /min MD Joey Daniel Work Phone: [facility] 12-06-2023 13:47-0400 Respiratory rate 16 /min MD Joey Daniel Work Phone: [facility] 12-06-2023 13:47-0400 SaO2% (BldA) [Mass fraction] 93 % MD Joey Daniel Work Phone: [facility] 12-06-2023 13:47-0400 Systolic blood pressure 115 mm[Hg] MD Joey Daniel Work Phone: [facility] 12-06-2023 10:39-0400 Body temperature 97.4 [degF] MD Joey Daniel Work Phone: [facility] 12-06-2023 10:14-0400 Inhaled oxygen flow rate 3 L/min MD Joey Daniel Work Phone: [facility] 12-06-2023 07:20-0400 Body height 167.64 cm MD Joey Daniel Work Phone: [facility] 12-06-2023 07:20-0400 Body mass index (BMI) [Ratio] 33.9 kg/m2 MD Joey Daniel Work Phone: [facility] 12-06-2023 07:20-0400 Body weight 95.25 kg MD Joey Daniel Work Phone: [facility] 08-14-2021 13:45-0400 Body mass index (BMI) [Ratio] 30.84 kg/m2 Joey Daniel Work Phone: AS-Iqfdmmzqt-Mfmjg ll [facility] Work Phone: 08-14-2021 13:45-0400 Body surface area Derived from formula 1.99 m2 Joey Daniel Work Phone: VU-Ofonimegk-Dooxk ll 5th Work Phone: 08-14-2021 13:45-0400 Body weight 88 kg Joey Daniel Work Phone: ZL-Nzcircuyy-Hcrah ll 5th Work Phone: 08-14-2021 13:45-0400 Diastolic blood pressure 74 mm[Hg] Joey Daniel Work Phone: MX-Ezxwkdpdm-Tthlq ll 5th Work Phone: 08-14-2021 13:45-0400 Systolic blood pressure 126 mm[Hg] Joey Daniel Work Phone: GN-Dcebejiqh-Kdomh ll 5th Work Phone: 07-31-2021 04:06-0400 Body temperature 37.0 {degrees_C} Joey Daniel Work Phone: LE-Rirexvnim-Datnq 5th Work Phone: Comment on above: NOTE: PATIENT RESULTS ARE NOT CORRECTED FOR TEMPERATURE. 07-24-2021 14:00-0400 Body temperature 98.6 [degF] Joey Daniel Other Phone: [facility] 07-24-2021 14:00-0400 Diastolic blood pressure 73 mm[Hg] Joey Jorden Other Phone: [facility] 07-24-2021 14:00-0400 Heart rate 89 /min Joey Daniel Other Phone: [facility] 07-24-2021 14:00-0400 Respiratory rate 20 /min Joey Jorden Other Phone: [facility] 07-24-2021 14:00-0400 SaO2% (BldA) [Mass fraction] 95 % Joey Jorden Other Phone: [facility] 07-24-2021 14:00-0400 Systolic blood pressure 114 mm[Hg] Joey Jorden Other Phone: [facility] 07-21-2021 15:02-0400 Body temperature 37.0 {degrees_C} Joey Daniel Work Phone: SA-Niekjbrtcemt-WC [facility] Work Phone: Comment on above: NOTE: PATIENT RESULTS ARE NOT CORRECTED FOR TEMPERATURE. 07-21-2021 15:02-0400 SaO2% (BldA) [Mass fraction] 95 % Joey Daniel Work Phone: KZ-Pvogwzhlxzfx-DP [facility] Work Phone: 07-21-2021 14:05-0400 Body temperature 37.0 {degrees_C} Joey Daniel Work Phone: LS-Kqwuojecdbxa-UZ [facility] Work Phone: Comment on above: NOTE: PATIENT RESULTS ARE NOT CORRECTED FOR TEMPERATURE. 07-21-2021 14:05-0400 SaO2% (BldA) [Mass fraction] 96 % Joey Daniel Work Phone: QX-Cyuitpcxjrrx-UN [facility] Work Phone: 07-21-2021 12:06-0400 Body temperature 37.0 {degrees_C} Joey Daniel Work Phone: AJ-Lhaybvcjuqzz-FJ [facility] Work Phone: Comment on above: NOTE: PATIENT RESULTS ARE NOT CORRECTED FOR TEMPERATURE. 07-21-2021 12:06-0400 SaO2% (BldA) [Mass fraction] 95 % Joey Daniel Work Phone: VM-Shkrfvjqqkie-DC [facility] Work Phone: 05-15-2021 10:40-0500 Body height 168.91 cm Joey Daniel Work Phone: ML-Cxgdnsaybfxf-OY [facility] Work Phone: 05-15-2021 10:40-0500 Body mass index (BMI) [Ratio] 30.21 kg/m2 Joey Daniel Work Phone: RC-Yulwlhraerbr-US [facility] Work Phone: 05-15-2021 10:40-0500 Body surface area Derived from formula 1.97 m2 Joey Daniel Work Phone: NA-Sywkzppvfgwx-LL [facility] Work Phone: 05-15-2021 10:40-0500 Body weight 86.18 kg Joey Daniel Work Phone: GT-Kfrwenukibcj-OG [facility] Work Phone: 05-15-2021 10:40-0500 Diastolic blood pressure 66 mm[Hg] Joey Daniel Work Phone: KU-Uzvlrjfzjeuj-IL [facility] Work Phone: 05-15-2021 10:40-0500 Heart rate 101 /min Joey Daniel Work Phone: HW-Gohknkrlvuvq-PS [facility] Work Phone: 05-15-2021 10:40-0500 Respiratory rate 18 /min Joey Daniel Work Phone: TL-Bbwrxxvdgupw-GU [facility] Work Phone: 05-15-2021 10:40-0500 Systolic blood pressure 102 mm[Hg] Joey Daniel Work Phone: UH-Bogftpgprads-KZ [facility] Work Phone: Encounters Encounter Date Encounter Type Care Provider Facility Start: 01-15-2025 End: 01-15-2025 Clinisync Result Encounter Generic External Data Provider [facility] External Department Unsolicited Start: 01-15-2025 End: 01-15-2025 Clinisync Result Encounter Generic External Data Provider [facility] External Department Unsolicited Start: 01-04-2025 End: 01-05-2025 Refill [facility] Comment on above: Chronic bilateral lo w back pain without sciatica Start: 12-25-2024 End: 12-26-2024 Refill Joey Daniel [facility] Comment on above: Chronic bilateral lo w back pain without sciatica Start: 12-04-2024 End: 12-04-2024 Refill [facility] Comment on above: Chronic bilateral lo w back pain without sciatica Start: 11-20-2024 End: 11-20-2024 Office outpatient visit 15 minutes summer Workman PA Work Phone: [facility] Comment on above: Rhus dermatitis (Kae rodgers Dx) Start: 11-20-2024 End: 11-20-2024 ambulatory SUMMER M WORKMAN Not Available Start: 11-05-2024 End: 11-06-2024 Refill Joey Daniel MD [facility] Comment on above: Generalized anxiety disorder ; Chronic bilateral low back pain without sciatica Start: 10-05-2024 End: 10-05-2024 Refill Joey Daniel MD Work Phone: [facility] Comment on above: Chronic bilateral lo w back pain without sciatica Start: 09-19-2024 End: 09-20-2024 Refill Joey Daniel MD Work Phone: [facility] Comment on above: Chronic bilateral lo w back pain without sciatica Start: 09-12-2024 End: 09-12-2024 ambulatory summer WORKMAN Not Available Start: 09-12-2024 End: 09-12-2024 Office outpatient visit 25 minutes summer Workman SUZANNA Work Phone: [facility] Comment on above: Generalized anxiety disorder [...] 09-07-2024 Refill Joey Daniel MD Work Phone: [facility] Comment on above: Chronic bilateral lo w back pain without sciatica Start: 08-29-2024 End: 08-29-2024 Clinisync Result Encounter Joey Daniel MD Work Phone: [facility] External Department Unsolicited Start: 08-29-2024 End: 08-29-2024 Clinisync Result Encounter Joey Daniel MD Work Phone: [facility] External Department Unsolicited Start: 08-14-2024 End: 08-15-2024 Refill Joey Daniel MD Work Phone: [facility] Comment on above: Chronic bilateral lo w back pain without sciatica Start: 08-08-2024 End: 08-08-2024 Refill Joey Daniel MD Work Phone: [facility] Comment on above: Chronic bilateral lo w back pain without sciatica Start: 07-11-2024 End: 07-11-2024 ambulatory JOEY DANIEL Not Available Start: 06-26-2024 End: 06-26-2024 Refill Joey Daniel MD Work Phone: [facility] Comment on above: Generalized anxiety disorder (CMS/HCC); Chronic bilateral low back pain without sciatica Start: 06-09-2024 End: 06-09-2024 Refill Joey Daniel MD Work Phone: [facility] Comment on above: Chronic bilateral lo w back pain without sciatica Start: 05-25-2024 End: 05-25-2024 Refill Joey Daniel MD Work Phone: [facility] Comment on above: Chronic pansinusitis ; Generalized anxiety disorder (CMS/HCC); Chronic bilateral low back pain without sciatica Start: 05-11-2024 End: 05-12-2024 Refill Joey Daniel MD Work Phone: [facility] Comment on above: Chronic bilateral lo w back pain without sciatica Start: 05-04-2024 End: 05-04-2024 ambulatory JOEY DANIEL Not Available Start: 05-04-2024 End: 05-04-2024 Office outpatient visit 25 minutes Joey Daniel MD Work Phone: [facility] Comment on above: Generalized anxiety disorder [...] 05-02-2024 Refill Val Nelson NP Work Phone: [facility] Comment on above: Chronic bilateral lo w back pain without sciatica Start: 04-17-2024 End: 04-20-2024 Orders Only Joey Daniel MD Work Phone: [facility] External Department Unsolicited Start: 04-11-2024 End: 04-13-2024 Refill Val Nelson VOCATIONAL REHABILITATION TECHNICIAN Work Phone: [facility] Comment on [...] 01-11-2024 End: 01-12-2024 Orders Only Val Nelson VOCATIONAL REHABILITATION TECHNICIAN Work Phone: [facility] External Department Unsolicited Start: [...] 01-10-2024 Refflorina Daniel MD Work Phone: [facility] Comment on above: Rash; Chronic pansinusitis; Chronic bilateral low back pain without sciatica Start: 01-06-2024 End: 01-06-2024 Refill Joey Daniel MD Work Phone: [facility] Comment on above: Chronic bilateral lo w back pain without sciatica Start: 12-14-2023 End: 12-14-2023 ambulatory VINNY HUFF Not Available Start: 12-13-2023 End: 12-13-2023 Patient encounter procedure MD Joey Daniel Work Phone: [facility] Work Phone: Start: 12-13-2023 End: 12-13-2023 ambulatory MD Joey Daniel Work Phone: [facility] Work Phone: Start: 12-06-2023 End: 12-06-2023 ambulatory VINNY HUFF Not Available Start: 12-06-2023 End: 12-06-2023 Admission to same day surgery center MD Joey Daniel Work Phone: [facility] [place] Start: 12-06-2023 End: 12-06-2023 ambulatory MD Joey Daniel Work Phone: [facility] Work Phone: Start: 11-12-2023 End: 11-12-2023 Patient encounter procedure MD Joey Daniel Work Phone: [facility] Work Phone: Start: 11-12-2023 End: 11-12-2023 ambulatory MD Joey Daniel Work Phone: [facility] Work Phone: Start: 11-12-2023 Encounter for prepro cedural laboratory examination Vinny uHff [facility] Start: 10-27-2023 End: 10-27-2023 Patient encounter procedure MD Joey Daniel Work Phone: [facility] [place] Work Phone: Start: 10-27-2023 End: 10-27-2023 ambulatory MD Joey Daniel Work Phone: [facility] Work Phone: Start: 09-28-2023 End: 09-28-2023 Patient encounter procedure MD Joey Daniel Work Phone: [facility] Work Phone: Start: 09-28-2023 End: 09-28-2023 ambulatory MD Joey Daniel Work Phone: [facility] Work Phone: Start: 08-21-2021 Chart Update Joey Daniel Work Phone: RP-Ydxfhlsgbzwe-FMUYG Work Phone: Start: 08-14-2021 Postop follow up vis it related to original px Joey Daniel Work Phone: PK-Uopormyxd-Vqmlknm 5th Work Phone: Start: 08-14-2021 ambulatory Joey Daniel Facil ity:[facility] Start: 07-30-2021 End: 07-31-[address] TRI AWAD Facility:[facility] Start: 07-24-2021 Chart Update Joey Daniel Work Phone: LI-Rmblirlowroo-RQHGM Work Phone: Start: 07-21-2021 End: 07-24-2021 Evaluation and management of inpatient Tri Awad [facility] Nat [id number] Rm [id number] Start: 07-11-[address] TRI AWAD Facility:[facility] Start: 07-11-2021 Encounter for blood typing Dr. TRI AWAD [facility] Start: 07-11-2021 Encounter for prepro cedural laboratory examination Dr. TRI AWAD [facility] Start: 06-17-[address] JOEY DANIEL Facility :[facility] Start: 05-22-2021 Chart Update Joey Daniel Work Phone: OV-Mdauelfrmtsf-PZIZG Work Phone: Start: 05-15-2021 Office outpatient ne w 45 minutes Joey Daniel Work Phone: PR-Iryqzvzmtpyj-AVFJQ Work Phone: Start: 05-15-2021 ambulatory PCP UNKNOWN Facility:U Start: 05-08-[address] TRI AWAD Facility:[facility] Start: 04-30-2021 End: 04-30-[address] JOEY DANIEL Facility: Start: 11-19-2020 End: 11-20-[address] JOEY DANIEL Facility: Start: 05-27-2017 End: 05-28-2017 Ambulatory RONI COON [facility] Start: 03-30-2017 End: 03-31-2017 Ambulatory ELLEN SONG [facility] Start: 03-02-2017 Ambulatory ELLEN SONG [facility] Start: 03-01-2017 End: 03-02-2017 Ambulatory ELLEN SONG [facility] Procedures Date Procedure Procedure Detail Performing Clinician Start: 01-15-2025 [facility] CMP (CMP) (FOR [facility] USE) Generic External Data Provider Start: 08-29-2024 ALL CBC WITH AUTO DIFF Joey Daniel MD Work Phone: Start: 04-17-2024 Comprehensive metabo lic panel Joey Daniel MD Work Phone: Start: 04-17-2024 SPECIMEN STATUS REPORT Joey Daniel MD Work Phone: Start: 01-11-2024 Antinuclear antibodi es segun Val Nelson VOCATIONAL REHABILITATION TECHNICIAN Work Phone: Start: 01-11-2024 Elctrophoretic techn ique not elsewhere specified Val Nelson VOCATIONAL REHABILITATION TECHNICIAN Work Phone: Start: 12-06-2023 Lobectomy of thyroid [...] Performed By: #### U RINC #### [facility] [id number] [place] [address] Start: 07-21-[address] TAMMY AWAD Comment on above: Order Comment: TEST TYPE + SCREEN WAS CANCELLED, 07/21/2021 14:41 Accession error. Performed By: #### C OAGS #### [facility] [id number] [place] [address] Start: 07-20-[address] TAMMY AWAD Comment on above: Performed By: #### S TAPH #### [facility] [address] [place] [address] Start: 07-11-[address] TAMMY AWAD Comment on above: Performed By: #### C OAGS #### [facility] [address] [place] [address] Start: 05-15-[address] TAMMY AWAD Comment on above: Performed By: #### S TAPH #### [facility] [address] [place] [address] Start: 03-11-2021 Microscopic observat ion [Identifier] in [...] 09-24-2031 Screening for malignant neoplasm of colon [facility] Start: 03-11-2025 Screening for malignant neoplasm of colon FIT-DNA [facility] Start: 02-15-2025 End: 02-15-2025 Professional / ancillary services management 02/15/2025 1:30 PM EDT Ancillary Procedure [facility] [address] [place] [address] [facility] Start: 01-16-2025 End: 01-16-2025 Patient encounter procedure 01/16/2025 2:30 PM EDT Office Visit [facility] [address] [place] [id number] [facility] Start: 01-01-2025 Influenza vaccination Influenza Vaccine (#1) [facility] Start: 12-19-2024 End: 12-19-2024 Patient encounter procedure [facility] Start: 12-13-2024 End: 03-15-2025 Comprehensive metabolic 2000 panel - Serum or Plasma Comprehensive metabolic panel Lab Routine Alkaline phosphatase raised Expected: 12/13/2024 (Approximate), Expires: 03/15/2025 [facility] Work Phone: Comment on above: Expected: 12/13/2024 (Approximate), Expi res: 03/15/2025 Start: 12-13-2024 End: 03-15-2025 Vitamin A Vitamin A Lab Routine Vitamin A deficiency Expected: 12/13/2024 (Approximate), Expires: 03/15/2025 [facility] Comment on above: Expected: 12/13/2024 (Approximate), Expi res: 03/15/2025 Start: 09-15-2024 Screening for malignant neoplasm of breast Mammogram [facility] Start: 09-12-2024 End: 09-12-2024 Patient encounter procedure 09/12/2024 1:00 PM EDT Office Visit [facility] [address] [place] [address] Charles Decker PA [address] [place] [address] [facility] Start: 08-14-2024 End: 08-14-2024 Patient encounter procedure 08/14/2024 10:45 AM EDT Office Visit [facility] [address] [place] [id number] Val Nelson, VOCATIONAL REHABILITATION TECHNICIAN [address] [place] [address] [facility] Start: 08-02-2024 End: 11-01-2024 25-hydroxyvitamin D3 [Mass/volume] in Serum or Plasma Vitamin D 25 hydroxy Total Lab Routine Vitamin D deficiency Expected: 08/02/2024 (Approximate), Expires: 11/01/2024 [facility] Comment on above: Expected: 08/02/2024 (Approximate), Expi res: 11/01/2024 Start: 08-02-2024 End: 11-01-2024 CBC W Auto Differential panel - Blood CBC and differential Lab Routine Iron deficiency anemia secondary to inadequate dietary iron intake Expected: 08/02/2024 (Approximate), Expires: 11/01/2024 [facility] Work Phone: Comment on above: Expected: 08/02/2024 (Approximate), Expi res: 11/01/2024 Start: 08-02-2024 End: 11-01-2024 Comprehensive metabolic 2000 panel - Serum or Plasma Comprehensive metabolic panel Lab Routine Alkaline phosphatase raised Expected: 08/02/2024 (Approximate), Expires: 11/01/2024 [facility] Comment on above: Expected: 08/02/2024 (Approximate), Expi res: 11/01/2024 Start: 08-02-2024 End: 11-01-2024 Lipid 1996 panel - Serum or Plasma Lipid panel Lab Routine Lipid screening Expected: 08/02/2024 (Approximate), Expires: 11/01/2024 [facility] Comment on above: Expected: 08/02/2024 [...] iron intake Expected: 08/02/2024 (Approximate), Expires: 11/01/2024 [facility] Comment on above: Expected: 08/02/2024 [...] [address] [place] [address] Joey Daniel MD [address] [place] [address] [facility] Start: 05-08-2024 End: 05-08-2024 Patient encounter procedure 05/08/2024 3:15 PM EST Office Visit [facility] [place] [address] [place] [phone] Vinny Huff, [address] [address] [facility] [place] Start: 05-04-2024 End: 08-02-2024 US Kidney US renal complete Imaging Routine Hydronephrosis, unspecified hydronephrosis type Expected: 05/04/2024 (Approximate), Expires: 08/02/2024 [facility] Comment on above: Expected: 05/04/2024 (Approximate), Expi res: 08/02/2024 Start: 05-04-2024 End: 05-04-2025 Vitamin K Vitamin K Lab Routine Vitamin K deficiency Expected: 05/04/2024 (Approximate), Expires: 05/04/2025 [facility] Comment on above: Expected: 05/04/2024 (Approximate), Expi res: 05/04/2025 Start: 05-04-2024 End: 05-04-2024 Patient encounter procedure 05/04/2024 10:15 AM EST Office Visit [facility] [address] [place] [phone] Joey Daniel MD [address] [place] [address] [facility] Start: 04-19-2024 End: 04-19-2024 Patient encounter procedure [facility] [place] Start: 03-11-2024 Screening for malignant neoplasm of cervix [facility] Start: 01-19-2024 End: 01-19-2024 Patient encounter procedure [facility] [place] Comment on above: Arrived Start: 01-11-2024 End: 01-11-2024 Patient encounter procedure 01/11/2024 10:15 AM EDT Office Visit [facility] [address] [place] [phone] Charles Decker PA [address] [place] [address] [facility] Start: 01-02-2024 Influenza vaccination Influenza Vaccine (#1) [facility] Start: 12-06-2023 [facility] Start: 12-06-2023 [facility] Start: 09-28-2023 Serum vitamin K measurement [facility] Start: 09-18-2021 Patient encounter procedure [facility] Start: 09-18-2021 POV, Provider: Tri Awad, Status: Pen, Time: 1:00 PM POV, Provider: Tri Awad, Status: Pen, Time: 1:00 PM OQ-Yemusohzgqab-BBVVP Work Phone: Start: 08-14-2021 Patient encounter procedure [facility] Start: 08-14-2021 POV, Provider: Tri Awad, Status: Pen, Time: 1:45 PM POV, Provider: Tri Awad, Status: Pen, Time: 1:45 PM [facility] Work Phone: Start: 07-23-2021 End: 07-24-2022 Bisacodyl Rectal 10 mg Suppository Once ; Suppository (DULCOLAX)DOSE = 10 mg Rectal Once Start: 23-Jul-2021 End: 23-Jul-2022 Ordered: 23-Jul-2021 Perri Hadley [facility] Start: 07-23-2021 End: 07-24-2022 Bisacodyl Rectal 10 mg Suppository Daily PRN ; Suppository (DULCOLAX)DOSE = 10 mg Rectal Daily, PRN if no BM in the previous 36 hoursClinician Notes: once now and daily PRN Start: 23-Jul-2021 End: 23-Jul-2022 Ordered: 23-Jul-2021 Susanne, Bong R Intent Comments: once now and daily PRN [facility] Comment on above: once now and daily PRN Start: 07-22-2021 End: 07-23-2022 [facility] Start: 07-21-2021 End: 07-22-2022 [facility] Comment on above: now and daily PRN Start: 06-26-2021 POV, Provider: Tri Awad, Status: Pen, Time: 1:30 PM POV, Provider: Tri Awad, Status: Pen, Time: 1:30 PM LW-Kjnjyizffigk-UYEWG Work Phone: Start: 06-02-2021 [facility], Provider: Tri Awad, Status: Pen, Time: 7:00 AM [facility] Provider: Tri Awad, Status: Pen, Time: 7:00 AM CD-Hxwjozrhhwbz-EXNAF Work Phone: Start: 10-13-1999 Screening for malignant neoplasm of cervix HPV/Cotest [facility] Start: 1969 Screening for malignant neoplasm of colon [facility] DBT Breast - bilater al screening Bilateral screening mammogram with tomosynthesis Imaging Routine Encounter for screening mammogram for malignant neoplasm of breast Ordered: 09/12/2024 [facility] Comment on above: Ordered: 09/12/2024 Patient Education Know your Meds [facility] Work Phone: Patient referral [facility] Work Phone: Immunizations Immunization Date Immunization Notes Care Provider Fa chaparroty 05-04-2024 Influenza, Madin Ori by Canine Kidney, subunit, trivalent, injectable, contains preservative Joey Daniel MD Work Phone: [facility] 05-04-2024 influenza virus vaccine, unspecified formulation Joey Daniel MD Work Phone: [facility] 03-08-2023 Influenza, injectabl e, Madin [facility] Canine Kidney, preservative free, quadrivalent Joey Daniel MD Work Phone: [facility] 03-08-2023 influenza virus vaccine, unspecified formulation Joey Daniel MD Work Phone: [facility] 01-28-2022 Influenza, injectabl e, Madin [facility] Canine Kidney, preservative free, quadrivalent Joey Daniel MD Work Phone: [facility] 02-24-2021 Influenza, injectabl e, Madin El[facility] Canine Kidney, preservative free, quadrivalent Joey Daniel MD Work Phone: [facility] 08-22-2020 COVID-19 mRNA-1273 (Moderna) [facility] 07-25-2020 COVID-19 mRNA-1273 (Moderna) [facility] 04-09-2020 Influenza, injectabl e, Madin Elisa Canine Kidney, preservative free, quadrivalent Joey Daniel MD Work Phone: [facility] 01-18-2019 Influenza, injectabl e, Madin [facility] Canine Kidney, quadrivalent with preservative Joey Daniel MD Work Phone: [facility] Payers Date Payer Category Payer Medicaid [employer] [place] [id number] 2014-Present [address] [place] [id number] 2014 Medicaid (Managed Care) [facility] MEDICAID [id number] 1969 Unknown [id number] 2.16.840.1.155643.3.579.2. 593 1969 Unknown [id number] 16.840.1.342466.3.579.2. 593 1969 Unknown [id number] 2.16.840.1.671552.3.579.2. 593 1969 Unknown [id number] 2.16.840.1.435461.3.579.2. 356 1969 Unknown [id number] 2.16.840.1.697979.3.579.2. 356 1969 Unknown [id number] 2.16.840.1.974140.3.579.2. 356 1969 Unknown [id number] 2.16.840.1.107703.3.579.2. 356 1969 Unknown [id number] 2.16.840.1.099349.3.579.2. 356 1969 Unknown [id number] 2.16840.1.226184.3.579.2. 356 1969 Unknown [id number] 2.16.840.1.013066.3.579.2. 356 1969 Unknown [id number] 2.16.840.1.930823.3.579.2. 1258 1969 Unknown [id number] 2.16.840.1.335466.3.579.2. 1258 1969 Unknown [id number] 2.16.840.1.610836.3.579.2. 1258 1969 Unknown [id number] 2.16.840.1.290701.3.579.2. 1258 1969 Unknown [id number] 2.16.840.1.768629.3.579.2. 1258 1969 Unknown [id number] 2.16.840.1.706648.3.579.2. 1258 1969 Unknown [id number] 2.16.840.1.566086.3.579.2. 1258 1969 Unknown [id number] 2.16.840.1.788694.3.579.2. 1259 1959 Self-pay 1959 Unknown [id number] Unknown Unknown [id number] 2.16.840.1.810880.3.579.2. 531 Unknown [id number] 2.16.840.1.051042.3.579.2. 531 Unknown [id number] 2.16.840.1.460758.3.579.2. 531 Unknown [id number] 2.16.840.1.047111.3.579.2. 531 Unknown [id number] 2.16.840.1.221870.3.579.2. 531 Social History Date Type Detail Facility Start: 01-11-2024 End: 01-19-2024 No illicit drug use No illicit drug use LE-Yobyxcwhxcmn-HTMI C Work Phone: Tobacco smoking consumption unknown [facility] Start: 1970 Sex Assigned At Female F [facility] Start: 10-06-2021 End: 11-23-2022 Tobacco smoking status NHIS Never smoked tobacco (finding) [facility] Start: 11-23-2022 Tobacco use and exposure Smokeless tobacco non-user [facility] Start: 01-19-2024 End: 11-20-2024 Alcoholic beverage intake Lifetime non-drinker (finding) [facility] Start: 01-11-2024 End: 01-19-2024 Tobacco use panel [facility] Start: 03-08-2023 Alcohol Comment caffeine- Diet Pop, 4 cans daily. 1 cups of coffee per week [facility] Start: 1970 Sex assigned at Not on file N [facility] Healthcare Goals Date Patient Goal Desired Activity /State Functional Status Date Assessment Result Facility Functional observable [facility] Mental Status Date Assessment Result Facility 07-22-2021 Cognitive functi ons [id number] [facility] Clinical Notes 07-05-2021 to 12-26-2024 Telephone Encounter - Alyssa Ybarra LPN - 12/26/2024 8:06 AM EDTTelephone Encounter - Alyssa Ybarra LPN - 12/26/2024 8:06 AM EDTSSUZANNA Dickerson - 11/20/2024 12:30 PM EDT<item> Note Date & Type Note Facility 12-26-2024 Telephone encounter Note Pt is requesting a refill on Pregabalin to [facility] in [place]. Confirmed dosage and directions with last office visit [facility] 12-26-2024 Miscellaneous Notes Pt is requesting a refill on Pregabalin to [facility] in [place]. Confirmed dosage and directions with last office visit documented in this encounter [facility] 11-20-2024 History of Present illness Narrative Images from the original note were not included. [address] , [address] [facility], [address] P: [phone] F: [phone] HPI Historian of HPI: patient Deana Croft [...] tablet; Refill: 0 documented in this encounter [facility] 09-12-2024 History of Present illness Narrative Images [...] of left interior parathyroid adenoma PARATHYROIDECTOMY 12/06/2023 [place] REMOVAL OF KIDNEY STONE 05/2015 and 06/2015 [place] SURG RX INCOMPLETE ABORTN 1990 delivery of [...] Eliel COPD Father Eliel Hearing loss Father Eleil Heart disease Father Eliel MEDICATIONS: Current Outpatient Medications Medication Instructions ALPRAZolam (XANAX) 0.5 mg, Oral, 2 times daily PRN beta carotene (VITAMIN A) 10,000 Units, Daily calcium citrate (Calcitrate) 950 (200 Ca) MG tablet Citracal 400 mg calcium and 500 international unit of Vitamin D take 2 tablets TID w/meals cholecalciferol (Vitamin D-3) 250 MCG (22638 UT) capsule 1 capsule, Daily cyclobenzaprine (FLEXERIL) 10 mg, Oral, Nightly PRN DULoxetine (CYMBALTA) 60 mg, Oral, Daily HYDROcodone-acetaminophen ([place]) 10-325 MG tablet 0.5-1 tablets, Oral, Every 6 hours PRN loratadine (CLARITIN) 10 mg, Oral, Daily PRN Multiple Vitamins-Minerals (Bariatric Multivitamins/Iron) capsule Every 24 hours nystatin (Mycostatin) 843870 UNIT/GM powder Topical, 2 times daily phytonadione [...] supervising patient care. documented in this encounter [facility] 08-15-2024 Telephone encounter Note Pt requesting a refill on Lyrica to [facility] 08-15-2024 Miscellaneous Notes [facility] 05-25-2024 Telephone encounter Note Pt requesting a refill on Alprazolam [facility]in [facility] [place] [facility] 05-25-2024 Miscellaneous Notes Pt requesting a refill on Alprazolam and [facility]in [facility] [place] documented in this encounter [facility] 05-04-2024 History of Present illness Narrative Images [...] of left interior parathyroid adenoma PARATHYROIDECTOMY 12/06/2023 [place] REMOVAL OF KIDNEY STONE 05/2015 and 06/2015 [place] SURG RX INCOMPLETE ABORTN 1990 delivery of , preeclampsia w/ [place] WHOLE BLOOD FOR TRANSFUSION x 2 2004 [...] times daily cholecalciferol (Vitamin D-3) 250 MCG (81168 UT) capsule 1 capsule, Daily cyclobenzaprine (FLEXERIL) 10 mg, Oral, Nightly PRN DULoxetine (CYMBALTA) 60 mg, Oral, Daily HYDROcodone-acetaminophen ([place]) 10-325 MG tablet 0.5-1 tablets, Oral, Every 6 hours PRN loratadine (CLARITIN) 10 mg, Oral, Daily PRN Multiple Vitamins-Minerals (Bariatric Multivitamins/Iron) capsule Every 24 hours nystatin (Mycostatin) 257535 UNIT/GM powder Topical, 2 times daily phytonadione [...] Counseling and the use of apps like [employer]Now are recommended to help manage her relationship with food. Exercise, including walking and resistance training, is also recommended to help with weight management and stress relief. PROCEDURE The patient underwent parathyroidectomy, during which 2 and 3/4 parathyroids were removed. documented in this encounter [facility] 02-11-2024 Telephone encounter Note Pt requesting a refill on Pregabalin to [facility] in [place] [facility] 02-11-2024 Miscellaneous Notes Pt requesting [facility] [place] documented in this encounter [facility] 02-11-2024 Telephone encounter Note Pt requesting a refill on Hydrocodone Acetaminophen to [facility] [place] [facility] 02-11-2024 Miscellaneous Notes Pt requesting a refill on Hydrocodone Acetaminophen to [facility] in [place] documented in this encounter [facility] 01-19-2024 History of Present illness Narrative HPI [...] with lab work. documented in this encounter [facility] 01-13-2024 Telephone encounter Note Sent this to Dr Huff [facility] 01-13-2024 Miscellaneous Notes Sent this to Dr [...] chills, myalgias, lymphangitis. documented in this encounter [facility] 01-13-2024 Telephone encounter Note Please call and alert Dr. Huff office. [facility] 01-11-2024 Telephone encounter Note Please call Dr. [...] She has no fevers, chills, myalgias, lymphangitis. [facility] 01-11-2024 History of Present illness Narrative Images [...] of left interior parathyroid adenoma PARATHYROIDECTOMY 12/06/2023 [place] REMOVAL OF KIDNEY STONE 05/2015 and 06/2015 [place] SURG RX INCOMPLETE ABORTN 1990 delivery of infant, preeclampsia w/ [place] WHOLE BLOOD FOR TRANSFUSION x 2 2004 [...] times daily cholecalciferol (Vitamin D-3) 250 MCG (41186 UT) capsule 1 capsule, Oral, Daily cyclobenzaprine (FLEXERIL) 10 mg, Oral, Nightly PRN DULoxetine (CYMBALTA) 60 mg, Oral, Daily ergocalciferol (Vitamin D2) 1.25 MG (23013 UT) capsule TAKE 1 CAPSULE BY MOUTH EVERY WEEK FOR 12 WEEKS HYDROcodone-acetaminophen ([place]) 10-325 MG tablet 0.5-1 tablets, Oral, Every 6 hours PRN loratadine (CLARITIN) 10 mg, Oral, Daily PRN Multiple Vitamins-Minerals (Bariatric Multivitamins/Iron) capsule Every 24 hours nystatin (Mycostatin) 907229 UNIT/GM powder Topical, 2 times daily phytonadione [...] an antibiotic prescription will be sent to [facility] in [place]. She is advised to consume yogurt or [...] 4 weeks ago. documented in this encounter [facility] 12-05-2023 Hospital Discharge instructions Additional Instructions 1. No lifting or straining 2. Take medications as prescribed - START RIGHT WHEN YOU GET HOME TODAY 3. Tylenol or Motrin for discomfort 4. If signs or symptoms of low calcium occur, report to the [facility] emergency room 5. Get blood work drawn [address] Huff in the office 6. See Dr. Huff in 1 week [facility] Work Phone: 07-31-2021 Note Send Summary: Discharge Summary Providers: Provider RoleProvider Name AttendingMillerTri Robert L Note Recipients: Joey Daniel MD - [id number] [] Discharge: Summary: Admission Date: .30-Jul-2021 17:22:00 Discharge Date: 31-Jul-2021 Attending Physician at Discharge: Tri Awad Admission Reason: Surgical wound dehiscence Final Discharge Diagnoses: Superficial dehiscence of wound Procedures: none Condition at Discharge: Satisfactory Disposition at Discharge: Home Health Care - Resumed Vital Signs: T PRBPMAPSpO2 Value36.0028903/6396% Date/Time07/31 12: 12: 12: 12: 12:06 Range(35.7C [...] 10-11) receives IV 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 Instead, bend at knees to cotton picker operator objects Nutrition/Diet: regular Wound Care: Wound Site: [...] own Home Care Certification: Skilled Disciplines Ordered: RN/ACCOUNTING PROFESSIONAL, PT, OT Home Care Services: Home Care Skilled Service: Rehab (PT/OT/SP eval and treat), wound care Follow Up Appointments: Follow-Up - Neurosurgeon: Physician/Dept/Service: Neurosurgeon Dr. Tri Awad Scheduled Date/Time: 14-Aug-2021 13:45 Location: [facility], [facility], 5th Floor, [address] [place] [address] Follow-Up - Neurosurgery [facility]: Physician/Dept/Service: Neurosurgery at [facility] Dr. Tri Awad Scheduled Date/Time: 18-Sep-2021 13:00 Location: [facility], [facility], 5th Floor, [address] [place] [address] Discharge Medications: Home Medication cholecalciferol 1250 mcg (50,000 intl units) oral capsule - 1 cap(s) orally (more content not included)... [facility] 07-30-2021 Note History of Present I llness: [...] patient. Objective Information: Objective Information: T PRBPMAPSpO2 Value35.762483562/8699% Date/Time07/30 17: 17: 17: 17: 17:30 Range(35.7C [...] home care nurse today and transferred to [facility] for evaluation of incision and surrounding soft [...] the note. I personally evaluated the patient [id number] Electronic Signatures: Thien Sagastume ( (Resident)) (Signed [...] Last Updated: 31-Jul-2021 16:54 by Tri Awad) [facility] 07-24-2021 Note Send Summary: Discharge Summary Providers: Provider RoleProvider Name Joey Dumont Note Recipients: Joey Daniel MD - [id number] [] Discharge: Summary: Admission Date: .21-Jul-2021 06:43:00 Discharge Date: 24-Jul-2021 Attending Physician at Discharge: Tri Awad Admission Reason: Lumbar stenosis Final Discharge Diagnoses: Lumbar stenosis Procedures: Date: 21-Jul-2021 15:55:00 Procedure Name: 1. L3/5 posterior instrumented fusion 2. L4/5 laminectomy 3. L4 open kyphoplasty 5. 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 Instead, bend at knees to cotton picker operator objects Nutrition/Diet: regular Wound Care: Inspect your [...] Tri Awad Scheduled Date/Time: 14-Aug-2021 13:45 Location: [facility], [address], [address] [place] [address] Follow-Up - Neurosurgery [facility]: Physician/Dept/Service: Neurosurgery at [facility] Dr. Tri Awad Scheduled Date/Time: 18-Sep-2021 13:00 Location: [facility], [address], [address] [place] [address] Discharge Medication (more content not included)... [facility] 07-21-2021 Note PROCEDURE DETAILS Preoperative Diagnosis: lumbar stenosis, neurogenic claudication, L4 vertebral hemangioma Postoperative Diagnosis: lumbar stenosis, neurogenic claudication, L4 vertebral hemangioma Surgeon: Ritesh Resident/Fellow/Other Lead Injection Mold Technician: Isabel Procedure: 1. L3/5 posterior instrumented fusion 2. L4/5 laminectomy 3. L4 open kyphoplasty 5. neuronavigation Estimated Blood Loss: 250 Findings: L4 hemangioma with obliteration of bilateral L4 pedicles Specimens(s) Collected: no, Complications: none Drains and/or Catheters: 2 15-round drains connected to a single Hemovac suction Implants: MiNeedstronic Patient Returned To/Condition: PACU Date of Dictation: 21-Jul-2021 Dictated By: Ben Denise Dictation Job Number: [id number] Attestation: Note Completion: I am a:Resident/Fellow Attending AttestationI was present for sam portions of the procedure and the procedure lasted longer than 5 minutes. Electronic Signatures: Ben Denise (Resident)) (Signed 21-Jul-2021 16:05) Authored: Post-Operative Note, Chart Review, Note Completion Tri Awad) (Signed 24-Jul-2021 17:08) Authored: Note Completion Co-Signer: Post-Operative Note, Chart Review, Note Completion Last Updated: 24-Jul-2021 17:08 by Tri Awad) [facility] 07-21-2021 Note History & Physical R eviewed: [...] COVID-19 Consent: COVID-19 Risk ConsentSurgeon has reviewed asm risks related to the risk of farshad [...] the note. I personally evaluated the patient [id number] Electronic Signatures: Ben Denise (Resident)) (Signed 20-Jul-2021 14:52) Authored: History & Physical Reviewed, ERAS, Consent, Note Completion Tri Awad) (Signed 24-Jul-2021 16:41) Authored: Note Completion Co-Signer: History & Physical Reviewed, ERAS, Consent, Note Completion Last Updated: 24-Jul-2021 16:41 by Tri Awad) [facility] 07-05-2021 Reason for referral (narrative) Reason for Referral: L3/5 posterior instrumented fusion; L4/5 laminectomy; L4 open kyphoplasty; neuronavigation. [facility] Chief complaint Narrative - Reported Patient is being seen for an initial Neurosurgical evaluation and NPV ref by Dr Jones for hemangioma clusters. [facility]qu[facility] Work Phone: Evaluation note Neurological: BUE 5/5BLE 5/5SILT [facility] Evaluation note No assessment inform ation available [facility] Work Phone: Evaluation note Diagnosis Generalized anxiety [...] pain without sciatica documented in this encounter [facility] HealthcareEvaluation note* Diagnosis Generalized anxiety disorder Generalized anxiety disorder Chronic bilateral low back pain without sciatica documented in this encounter [facility] HealthcareEvaluation note* Diagnosis Rhus dermatitis- Primary [...] or bladder symptoms * no perineal anesthesia [facility]odmeziutty[facility] Work Phone: History of Present illness Narrative* pt reports pain in back and leg have resolved * no complaints related to incision XN-Eubnyrwow-Xkmbhq[facility]th Work Phone: Hospital Discharge instructions* Activity:activity [...] to Face Encounter Completed: yesDate of Encounter: [id number] Necessity for Homecare(based on clinical findings): PT/OT [...] 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 Do NOT bend at waist or twist. 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 * Wound Care:Inspect your incision daily [...] Neurosurgeon, Dr. Tri AwadScheduled Date/Time: 14-Aug-2021 13:45Location: [facility], [facility] 5th Floor, [address] [place] [address] Number: [phone]: Please wear a mask when entering the building. Please arrive 10-15 minutes early, bring photo ID, insurance card, discharge summary, and list of current medications and dosages. If unable to keep this appointment, please call to cancel at least 24 hours prior to appointment. * Follow-Up - Neurosurgery [facility]:Physician/Dept/Service: Neurosurgery at [facility], Dr. Tri Camachoeduled Date/Time: 18-Sep-2021 13:00Phone Number: [phone]: [facility], [facility] 5th Floor, [address] [place] [id number]: Please wear a mask when entering the building. Please arrive 10-15 minutes early, bring photo ID, insurance card, discharge summary, and list of current medications and dosages. If unable to keep this appointment, please call to cancel at least 24 hours prior to appointment. [facility] Summary Purpose Family History Unknown Family Member [...] section and content) DATE CREATED AUTHOR 10/22/[address] [facility] DATE CREATED AUTHOR AUTHOR'S ORGANIZ ATION 02/05/2019 [facility] DATE CREATED AUTHOR AUTHOR'S ORGANIZ ATION 05/29/2021 [facility] dical Specialist DATE CREATED AUTHOR AUTHOR'S ORGANIZ ATION 06/18/2021 [facility] DATE CREATED AUTHOR AUTHOR'S ORGANIZ ATION 08/15/2021 [employer] DATE CREATED AUTHOR AUTHOR'S ORGANIZ ATION 02/27/2022 [facility] ical Center DATE CREATED AUTHOR AUTHOR'S ORGANIZ ATION 12/26/2023 [facility] y[facility] DATE CREATED AUTHOR AUTHOR'S ORGANIZ ATION 11/22/2024 [facility] dical Specialists EPIC <item> Privacy Markings [...] December 13, 2023 End: December 13, 2023 Soft Shoe Dancer Relationship Specialty Start Date End Date Joey Daniel MD [address] [place] [address] PCP - General Internal Medicine 11/26/22 Spencer Tyler DO [address] [place] [address] PCP - [facility] 08/02/23 Vinny Huff DO [address] [place] [place] [address] Otolaryngology 09/29/23 Vinny Huff DO [address] [place] [address] Otolaryngology 11/02/23 Soft Shoe Dancer Relationship Specialty Start Date End Date Joey Daniel MD [address] [place] [address] PCP - General Internal Medicine 11/26/22 Spencer Tyler DO [address] [place] [address] PCP - [facility] 08/02/23 Vinny Huff DO [address] [place] [address] Otolaryngology 09/29/23 Vinny Huff DO [address] [place] [address] Otolaryngology 11/02/23 Soft Shoe Dancer Relationship Specialty Start Date End Date Joey Daniel MD [address] [place] [address] PCP - General Internal Medicine 11/26/22 Spencer Tyler DO [address] [place] [address] PCP - [facility] 08/02/23 Vinny Huff, [address] [place] [address] Otolaryngology 09/29/23 Vinny Huff DO [address] [place] [address] Otolaryngology 11/02/23 Soft Shoe Dancer Relationship Specialty Start Date End Date Joey Daniel MD [address] [place] [address] PCP - General Internal Medicine 11/26/22 Spencer Tyler DO [address] [place] [address] PCP - [facility] 08/02/23 Vinny Huff DO [address] [place] [address] Otolaryngology 09/29/23 Vinny Huff DO [address] [place] [address] Otolaryngology 11/02/23 Soft Shoe Dancer Relationship Specialty Start Date End Date Joey Daniel MD [address] [place] [address] PCP - General Internal Medicine 11/26/22 Spencer Tyler DO [address] [place] [address] PCP - [facility] 08/02/23 Vinny Huff DO [address] [place] [address] Otolaryngology 09/29/23 Vinny Huff DO [address] [place] [address] Otolaryngology 11/02/23 Soft Shoe Dancer Relationship Specialty Start Date End Date Joey Daniel MD [address] [place] [address] PCP - General Internal Medicine 11/26/22 Spencer Tyler DO [address] [place] [address] PCP - [facility] 08/02/23 Vinny Huff DO [address] [place] [address] Otolaryngology 09/29/23 Vinny Huff DO [address] [place] [address] Otolaryngology 11/02/23 Soft Shoe Dancer Relationship Specialty Start Date End Date Joey Daniel MD [address] [place] [address] PCP - General Internal Medicine 11/26/22 Spencer Tyler DO [address] [place] [address] PCP - [facility] 08/02/23 Vinny Huff DO [address] [place] [address] Otolaryngology 09/29/23 Vinny Huff, [address] [place] [address] Otolaryngology 11/02/23 Soft Shoe Dancer Relationship Specialty Start Date End Date Joey Daniel MD [address] [place] [address] PCP - General Internal Medicine 11/26/22 Spencer Tyler DO [address] [place] [address] PCP - [facility] 08/02/23 Vinny Huff DO [address] [place] [address] Otolaryngology 09/29/23 Vinny Huff DO [address] [place] [address] Otolaryngology 11/02/23 Soft Shoe Dancer Relationship Specialty Start Date End Date Joey Daniel MD [address] [place] [address] PCP - General Internal Medicine 11/26/22 Spencer Tyler DO [address] [place] [address] PCP - [facility] 08/02/23 Vinny Huff DO [address] [place] [address] Otolaryngology 09/29/23 Vinny Huff, DO [address] [place] [address] Otolaryngology 11/02/23 Soft Shoe Dancer Relationship Specialty Start Date End Date Joey Daniel MD [address] [place] [address] PCP - General Internal Medicine 11/26/22 Spencer Tyler DO [address] [place] [address] PCP - [facility] 08/02/23 Vinny Huff, DO [address] [place] [address] Otolaryngology 09/29/23 Vinny Huff, DO [address] [place] [address] Otolaryngology 11/02/23 Soft Shoe Dancer Relationship Specialty Start Date End Date Joey Daniel MD [address] [place] [address] PCP - General Internal Medicine 11/26/22 Spencer Tyler DO [address] [place] [address] PCP - [facility] 08/02/23 Vinny Huff DO [address] [place] [address] Otolaryngology 09/29/23 Vinny Huff, DO [address] [place] [address] Otolaryngology 11/02/23 Soft Shoe Dancer Relationship Specialty Start Date End Date Joey Daniel MD [address] [place] [address] PCP - General Internal Medicine 11/26/22 Spencer Tyler, DO [address] [place] [address] PCP - [facility] 08/02/23 Vinny Huff, DO [address] [place] [address] Otolaryngology 09/29/23 Vinny Huff, DO [address] [place] [address] Otolaryngology 11/02/23 Soft Shoe Dancer Relationship Specialty Start Date End Date Joey Daniel MD [address] [place] [address] PCP - General Internal Medicine 11/26/22 Spencer Tyler DO [address] [place] [address] PCP - [facility] 08/02/23 Vinny Huff, DO [address] [place] [address] Otolaryngology 09/29/23 Vinny Huff, DO [address] [place] [address] Otolaryngology 11/02/23 Soft Shoe Dancer Relationship Specialty Start Date End Date Joey Daniel MD [address] [place] [address] PCP - General Internal Medicine 11/26/22 Spencer Tyler, DO [address] [place] [address] PCP - [facility] 08/02/23 Vinny Huff, DO [address] [place] [place] [address] Otolaryngology 09/29/23 Vinny Huff, DO [address] [place] [address] Otolaryngology 11/02/23 Reason for Visit (unrecogniz ed [...] BE BASED ON THE PRIMARY CLINICAL RECORDS. [facility] [employer] [facility]. provides no warranty or guarantee of the accuracy or completeness of information in this document.
== END 2025-01-15 13:01 | disposition home or self-care (01) ==
LOC: LAB 13:04
PROVIDERS: PCP Internal Medicine; Visit Provider Physician Assistant
DX: R74.8 Abnormal levels of other serum enzymes (principal); E56.1 Deficiency of vitamin K; R50.9 Fever, unspecified
CPT/HCPCS: 36415; 80053; 84590; 84597

== ENCOUNTER 2025-05-01 15:54 | Outpatient (OUT) | payer OTHER, SELFPAY ==
--- OUTSIDE RECORDS SUMMARY | 2025-05-01 16:05 | XMS_ITS | Encounter Summary ---
Author Organization [facility] Address [address] [place] [address] Care Team Providers Care Ui Ux Web Developer Name Role Phone Chaka Leonardo MD Primary Care Provider [phone] Spencer Tyler DO Unavailable [phone] Vinny Huff DO Unavailable [phone] Vinny Huff DO Unavailable [phone] Reason for Visit * ReasonOnset DateCommentsMed Vywsrd7205/01/2025 Encounter Details DateTypeDepartmentCare Team (Latest Contact Info)Zkketyzryxu93/30/2025Refill [facility] [address] [facility] [address] [place] [address] Chaka Leonardo MD [address] [facility] [address] [place] [address] Chronic pansinusitis; Chronic bilateral low back pain without sciatica Social History Tobacco UseTypesPacks/DayYears UsedDateSmoking Tobacco: NeverSmokeless Tobacco: NeverAlcohol UseStandard Drinks/WeekCommentsNever0 (1 standard drink = 0.6 oz pure alcohol)caffeine- Diet Pop, 4 cans daily. 1 cups of coffee per weekPHQ-2 AnswerDate RecordedPatient Health Questionnaire-2 Uobmo278 CommentsUnknownSex and Gender InformationValueDate RecordedSex Assigned at Not on fileLegal WloAmbnbb45/15/2023 7:01 PM EDTGender IdentityNot on fileSexual OrientationNot on fileOccupationIndustryJob Start DateJob End Date[employer]. Part TimeNot on fileNot on fileNot on filedocumented as of this encounter Plan of Treatment DateTypeDepartmentCare Team (Latest Contact Info)Zfoasevklas83/06/2026 3:45 PM ESTOffice Visit [facility] [place] [facility] [address] [place] [address] documented as of this encounter Visit Diagnoses Diagnosis Chronic pansinusitis Other chronic sinusitis Chronic bilateral low back pain without sciatica documented in this encounter Additional Health Concerns AssessmentNoted TimePHQ-9 Depression Total Score: 18012/02/2022 3:00 PM EDT documented as of this encounter Care Teams Team MemberRelationshipSpecialtyStart DateEnd Chaka Leonardo MD [address] [place] [address] PCP - GeneralInternal Medicine11/26/22 Spencer Tyler, DO [address] [place] [address] PCP - [facility]08/02/23 Vinny Huff, DO [address] [place] [address] Otolaryngology09/29/23 Vinny Huff, DO [address] [place] [address] Otolaryngology11/02/23documented as of this encounter
--- OUTSIDE RECORDS SUMMARY | 2025-05-01 16:05 | XMS_ITS | Clinical Summary ---
Author Organization [facility] Address [address] [place] [address] Phone Care Team Providers Care Art Critic Name Role Phone Chaka Leonardo MD Primary Care Provider Social History Tobacco UseTypesPacks/DayYears UsedDateSmoking Tobacco: Never Assessed CommentsUnknownSex and Gender InformationValueDate RecordedSex Assigned at Not on fileLegal DaqWtuplx85/25/2022 1:40 PM ESTGender IdentityNot on fileSexual OrientationNot on file Last Filed Vital Signs Vital SignReadingTime TakenCommentsBlood Vrsbkggt525/7404 1:45 PM EDT Twywp64551 5:30 PM KXPFgldxuxyfqv82.7 ??C (96.3 ??F)07/30/2021 5:30 PM EDTRespiratory Zcoo4216 5:30 PM EDTOxygen Hwdmobyhqo47%07/30/2021 5:30 PM EDTInhaled Oxygen Concentration--Wrjuhg33 kg (194 lb)08/14/2021 1:45 PM EDT Gboeit274.6 cm (5' 5.98 )07/31/2021 6:02 AM EDTBody Mass Index31.3303 6:02 AM EDT Plan of Treatment Not on file Medical Devices ImplantedTypeAreaManufacturerDevice IdentifierShelf Expiration DateModel / Serial / LotCement/W Barium, High Viscosity, Radiopaque, Kyphx Hv-R Case [id number] Implanted:Qty: 1 on 07/21/2021 by Randy Pro, ImplantMEDTRONIC INC:SOFAMOR [id number] / / [id number]:Converted from Care Acute. Please see archived information for full log information.Set Screw, 5.5, Ti Ns Brk Off Case [id number] Implanted:Qty: 4 on 07/21/2021 by Randy Pro, ImplantMEDTRONIC INC:SOFAMOR [id number] / / Description:Converted from Care Acute. Please see archived information for full log information.William Dbf With Cannulas 9cc Case [id number] Implanted:Qty: 1 on 07/21/2021 by Randy Pro, ImplantMEDTRONIC INC 09/19/[id number] / [id number] / Description:Converted from Care Acute. Please see archived information for full log information. Additional Information:WILLIAM DBF WITH CANNULAS 9CCper bill only jdr 07/22/2021crew, Mas 6.5 X 50 Cc Case [id number] Implanted:Qty: 2 on 07/21/2021 by Randy Pro, ImplantMEDTRONIC INC:SOFAMOR [id number] / / Description:Converted from Care Acute. Please see archived information for full log information.Screw, Mas 6.5 X 45 Cc Solera Case [id number] Implanted:Qty: 2 on 07/21/2021 by Randy Pro, Health Plan Onepinal HardwareMEDTRONIC INC:SOFAMOR [id number] / / Description:Converted from Care Acute. Please see archived information for full log information.Juan Pablo, Solera Chromoloy, 70mm Case [id number] Implanted:Qty: 2 on 07/21/2021 by Randy Pro, MDSpinal HardwareMEDTRONIC [id number] / / Description:Converted from Care Acute. Please see archived information for full log information.Pack, Bone Cement Hv-R Kyphx/Mixer Kyphon Case [id number] Implanted:Qty: 1 on 07/21/2021 by Randy Pro, Health Plan Onesterling regional medcenterQuarterlyMEDTRONIC INC:JOSIANE [id number] / / [id number]:Converted from [facility] Acute. Please see archived information for full log information. Care Teams Team MemberRelationshipSpecialtyStart DateEnd Date Chaka Leonardo MD [address] [place] [phone] PCP - General05/08/21
--- OUTSIDE RECORDS SUMMARY | 2025-05-01 16:05 | XMS_ITS | Clinical Summary ---
Author Organization [facility] Address [address] [place] [address] Care Team Providers Care Tailor Fitter Name Role Phone Chaka Leonardo MD Primary Care Provider [phone] Spencer Tyler DO Unavailable [phone] Vinny Huff DO Unavailable [phone] Vinny Huff DO Unavailable [phone] Allergies Active AllergyReactionsCriticalityNoted OdnoCmsesmniUzobwlpbdnyyiKkl93/25/2023 Other Reaction(s): sedation Iron HebcyqjNarvqHmu62/25/2023OxycodoneGI kpuquhcoryhNdg89/06/2023 Medications MedicationSigDispense QuantityRefillsLast FilledStart DateEnd DateStatus Multiple Vitamins-Minerals (Bariatric Multivitamins/Iron) capsule 1 (one) time each day at the same time.Active beta carotene (vitamin A) 3 MG (38280 UT) capsule Take 10,000 Units by mouth in the morning. 900 MCG QD.Active cholecalciferol (Vitamin D-3) 250 MCG (81030 UT) capsule Take 1 capsule by mouth DailyActive phytonadione (,Vitamin K,) 1 MG capsule Indications:S/P biliopancreatic diversion with duodenal switch,Vitamin K deficiencyShe takes 1,920 mcg daily, instructed to add 1 additional Vitamin K to rswfpmy5610/11/2023ctive zinc gluconate 50 MG tablet Every tifbwzh1911/12/2023ctive loratadine (Claritin) 10 MG tablet Indications:Chronic pansinusitisTake 1 tablet (10 mg) by mouth Daily as needed for allergies 90 tablet 301/23/2025Active calcium citrate (Calcitrate) 950 (200 Ca) MG tablet Indications:S/P biliopancreatic diversion with duodenal switchCitracal 400 mg calcium and 500 international unit of Vitamin D take 2 tablets TID w/meals 5Active nystatin (Mycostatin) 730488 UNIT/GM powder Indications:RashApply topically in the morning and before bedtime. 30 g 505Active cyclobenzaprine (Flexeril) 10 MG tablet Indications:Chronic bilateral low back pain without sciaticaTake 1 tablet (10 mg) by mouth as needed at bedtime for muscle spasms 90 tablet 5Active DULoxetine (Cymbalta) [address] capsule Indications:Generalized anxiety disorderTake 1 capsule (60 mg) by mouth Daily 90 capsule 5Active ALPRAZolam (Xanax) 0.5 MG tablet Indications:Generalized anxiety disorderTake 1 tablet (0.5 mg) by mouth 2 (two) times a day as needed for anxiety 60 tablet 5Active HYDROcodone-acetaminophen ([place]) 10-325 MG tablet Indications:Chronic bilateral low back pain without sciaticaTake 0.5-1 tablets by mouth every 6 (six) hours if needed for severe pain 90 tablet 5Active pregabalin (Lyrica) 100 MG capsule Indications:Chronic bilateral low back pain without sciaticaTake 1 capsule (100 mg) by mouth in the morning and 1 capsule (100 mg) in the evening and 1 capsule (100 mg) before bedtime. 90 capsule 5Active pregabalin (Lyrica) 100 MG capsule Indications:Chronic bilateral low back pain without sciaticaTake 1 capsule (100 mg) by mouth in the morning and 1 capsule (100 mg) in the evening and 1 capsule (100 mg) before bedtime. 90 capsule Discontinued(Reorder) Active Problems ProblemNoted DateDiagnosed DateStage 3a chronic kidney disease (CKD)01/15/2025 Aylxrkcerdyzpwjkpya94/28/2023lkaline phosphatase nwozrt5111/27/2022rimary lmawxagb00/28/2023Iron deficiency anemia secondary to inadequate dietary iron kzrodr9111/27/2022ge-related osteoporosis without current pathological fracture 11/27/2022Vitamin A ryuahjfjol74/28/2023Vitamin D bvgdtmyvns91/28/2023Vitamin E coxgffkyow75/28/2023Vitamin K cbgyrdupyh30/28/2023S/P biliopancreatic diversion with duodenal njabvk8511/27/20224899Gqypvuomfxxt58/28/2023hronic bilateral low back pain without bzqtvndy88/19/2023eneralized anxiety lherxsyw27/12/2023eripheral venous taptlpwdxivos96/06/2016Vitamin B12 xitzqnaiuw17/08/2014 Resolved Problems ProblemNoted DateDiagnosed DateResolved LmahJurudvz04/02/202311/07/2022Nontoxic single thyroid /01/2023 Encounters DateTypeDepartmentCare IehdJsrzpbryrks83/30/2025[facility] [address] [place] [phone] Chaka Leonardo MD Chronic pansinusitis; Chronic bilateral low back pain without dknjtuki18/02/2025[facility] [address] [place] [phone] Chaka Leonardo MD Chronic bilateral low back pain without phqwutyo58/28/2025[facility] [address] [place] [address] Chaka Leonardo MD Chronic bilateral low back pain without qecggcqi23/31/2025[facility] [address] [place] [phone] Chaka Leonardo MD Chronic bilateral low back pain without lzvxheaz24/16/2025[facility] [address] [place] [phone] Chaka Leonardo MD Generalized anxiety wmvtzoza13/02/2025[facility] [address] [place] [phone] Chaka Leonardo MD Chronic bilateral low back pain without sciaticafrom Last 3 Months Immunizations ImmunizationAdministration DatesNext DueInfluenza, Madin Elisa Canine Kidney, subunit, trivalent, injectable, contains bkvjemrcdixl69/02/2025Influenza, injectable, MDCK, preservative free, uqwlglxmjnmb01/06/2023,01/28/2022, 02/24/2021,04/09/2020Influenza, injectable, MDCK, uvscujvhzomp25/18/2019 Family History Medical HistoryRelationNameCommentsCOPDFatherBernardHearing lossFatherBernard Heart diseaseFatherBernardHypertensionFatherBernardHypertensionMotherSandra RelationNameStatusCommentsFatherBernardAliveMotherSandraAlive Social History Tobacco UseTypesPacks/DayYears UsedDateSmoking Tobacco: NeverSmokeless Tobacco: Never Tobacco Cessation:Counseling Given: Not Answered Alcohol UseStandard Drinks/WeekCommentsNever0 (1 standard drink = 0.6 oz pure alcohol)caffeine- Diet Pop, 4 cans daily. 1 cups of coffee per weekPHQ-2Answer Date RecordedPatient Health Questionnaire-2 Pylfj247Comments UnknownSex and Gender InformationValueDate RecordedSex Assigned at BirthNot on fileLegal DxeCiueju62/15/2023 7:01 PM EDTGender IdentityNot on fileSexual OrientationNot on fileOccupationIndustryJob Start DateJob End Date[employer]. Part TimeNot on fileNot on fileNot on file Last Filed Vital Signs Vital SignReadingTime TakenCommentsBlood Padiucma583/8409 2:29 PM EDT Ufhtu903101/16/2025 2:29 PM MURWxtfipnvpnq67.4 ??C (97.5 ??F)11/20/2024 12:31 PM EDTRespiratory Rate--Oxygen Myiqmbflyi12%01/16/2025 2:29 PM EDTInhaled Oxygen Concentration--Jhkiml872 kg (222 lb)01/16/2025 2:29 PM GMSXkpszl260.6 cm (5' 6 ) 09/12/2024 1:08 PM EDTBody Mass Index35.8309/12/2024 1:08 PM EDT Plan of Treatment DateTypeDepartmentCare Team (Latest Contact Info)Flsbncgplew79/10/2025 3:45 PM ESTOffice Visit [facility] [place] [facility] [address] [place] [address] Health MaintenanceDue DateLast DoneCommentsCT Ghixlwzxynby24/12/1970FIT 1969FOBT1969 3909Kbotksixlkfhl27/12/1970HPV/Ppsiyv5810/13/1999Cervical Cancer Vfcvvtfli90/09/2024Pap Smear/01/2021Influenza Vaccine (#1) 501/06/2024, 03/08/2023, 01/28/2022, Additional history existsFIT-DNA Mammogram/, 09/16/2023, 08/24/2022, Additional history aliomsJtqhnbnyvzv22/24/203205/, 09/23/2021olorectal Cancer Gnaecthty00/24/2032Pneumococcal Vaccine: Pediatrics (0 to 5 Years) and At-Risk Patients (6 to 64 Years)Aged OutNo longer eligible based on patient's age to complete this topic Procedures Procedure NamePriorityDate/TimeAssociated DiagnosisCommentsBI MAMMOGRAM SCREENING TOMOSYNTHESIS ERCBCNOCEJtyefur98/16/2025 1:46 PM EDT Encounter for screening mammogram for malignant neoplasm of breast LAB COLOGUARD?? COLON CANCER BPHOKAUtunfje47/09/2022 MWKHOXDGZLSIlohgtf57/24/2022 12:00 PM EDT THINPREP TIS PAP AND HPV MRNA E6/E7 REFLEX HPV 16,18/45 (84123)Adwcxol7003/11/2021 from Last 3 Months or Most Recently Relevant to Health Maintenance Results * Bilateral screening mammogram with tomosynthesis (01/16/2025 1:46 PM EDT) Anatomical RegionLateralityModalityBreastBilateralMammographySpecimen (Source) Anatomical Location / LateralityCollection Method / VolumeCollection Time Received Time01/17/2025 1:40 PM EDT Impressions 01/17/2025 1:46 PM EDT Impression: No specific evidence of malignancy seen in either breast. BIRADS 2 - Benign Findings DENSITY: The breasts are almost entirely fatty. FOLLOW-UP: Routine Screening Mammogram ELECTRONICALLY SIGNED BY: Edward Shelley M.D. Narrative 01/17/2025 1:46 PM EDT Examination: BI MAMMOGRAM SCREENING TOMOSYNTHESIS BILATERAL Clinical History: screen Technique: Screening digital mammography study of both breasts was performed with 2-D and 3-D tomosynthesis imaging. Study was compared to the prior exam dated 09/16/2023. Findings: There is no evidence of interval dominant spiculated mass, grouped microcalcifications, or skin thickening which would be suggestive of malignancy. ?? Mild scattered benign-appearing calcifications are seen on the left with a few benign-appearing calcifications noted on the right. A few small benign-appearing asymmetric densities are noted bilaterally similar to the prior study. Procedure Note Edward Shelley MD - 01/17/2025 Examination: BI MAMMOGRAM SCREENING TOMOSYNTHESIS BILATERAL Clinical History: screen Technique: Screening digital mammography study of both breasts wasperformed with 2-D and 3-D tomosynthesis imaging. Study was compared tothe prior exam dated 09/16/2023. Findings: There is no evidence of interval dominant spiculated mass,grouped microcalcifications, or skin thickening which would be suggestiveof malignancy. Mild scattered benign-appearing calcifications are seen on the left with afew benign-appearing calcifications noted on the right. A few smallbenign-appearing asymmetric densities are noted bilaterally similar to theprior study. IMPRESSION: Impression: No specific evidence of malignancy seen in either breast. BIRADS 2 - Benign Findings DENSITY: The breasts are almost entirely fatty. FOLLOW-UP: Routine Screening Mammogram ELECTRONICALLY SIGNED BY: Edward Shelley M.D. Authorizing ProviderResult TypeResult StatusSummer Analia Decker PAIMG BI PROCEDURES Final Result * Cologuard?? colon cancer screening (03/11/2022)ComponentValueRef RangeTest MethodAnalysis TimePerformed AtPathologist SignatureCOLOGUARD RESULT REPORTABLECancelled - Order ExpiredNot ApplicableN[facility]S [facility] Specimen (Source)Anatomical Location / LateralityCollection Method / Volume Collection TimeReceived Time03/11/2022 Narrative Authorizing ProviderResult TypeResult StatusMonica Burger [facility]AGNOST[facility] ORDERABLESFinal ResultPerforming OrganizationAddressCity/State/ZIP CodePhone Number [facility] * Colonoscopy (09/23/2021 12:00 PM EDT)Anatomical RegionLateralityModality EndoscopySpecimen (Source)Anatomical Location / LateralityCollection Method / VolumeCollection TimeReceived Time09/23/2021 12:00 PM EDT Narrative 09/23/2021 12:00 PM EDT PERFORMED AT [facility] LOCATION:[id number] normal Procedure Note CONVERSION, GENERIC - 09/16/2022 PERFORMED AT [facility] LOCATION:[id number] normal Authorizing ProviderResult TypeResult StatusChaka Leonardo MDENDOSCOPY PROCEDURE ORDERABLESFinal Result * THINPREP TIS PAP AND HPV MRNA E6/E7 REFLEX HPV 16,18/45 (11154) (03/11/2021) ComponentValueRef RangeTest MethodAnalysis TimePerformed AtPathologist SignatureCLINICAL INFORMATION:None givenNOMS LEGACY EXTERNAL LABLMP:NONE GIVEN [facility]TER[facility] LABPREV. PAP:NONE GIVENNOMS LEGACY EXTERNAL LABPREV. BX: NONE GIVENNOMS LEGACY EXTERNAL LABSOURCE:Cervix, EndocervixNOMS LEGACY EXTERNAL LABSTATEMENT OF ADEQUACY:SEE COMMENTNOMS LEGACY EXTERNAL LABComment: Satisfactory for evaluation. Endocervical/transformation zone component present. INTERPRETATION/RESULT:Negative for intraepithelial lesion or malignancy.[facility] LABCOMMENT:This Pap test has been evaluated with computer assisted technology.[facility] LABCYTOTECHNOLOGIST:SEE COMMENTNOMS LEGACY EXTERNAL LABComment: LLT, CT(ASCP) CT screening location: [place] [address]. REVIEW STUNNER AND SHACKLER:SEE COMMENTNOMS LEGACY EXTERNAL LABComment: PCJ, SCT(ASCP) CT screening location: [place] [address]. COMMENTSEE COMMENTNOMS [facility] EXTERNAL LABComment: EXPLANATORY NOTE: The Pap is a screening test for cervical cancer. It is not a diagnostic test and is subject to false negative and false positive results. It is most reliable when a satisfactory sample, regularly obtained, is submitted with relevant clinical findings and history, and when the Pap result is evaluated along with historic and current clinical information. HPV MRNA E6/E7Not DetectedNot DetectedNOASTRIA [facility] EXTERNAL LABComment: Methodology: Switch Adjuster-Mediated Amplification This assay detects E6/E7 viral messenger RNA (mRNA) from 14 high-risk HPV types (16,18,31,33,35,39,45,51,52,56,58,59,66,68). The analytical performance characteristics of this assay have been determined by [facility]. The modifications have not been cleared or approved by the FDA. This assay has been validated pursuant to the CLIA regulations and is used for clinical purposes. For additional information, please refer to http://education.[employer]/faq/MDJ186v9 (This link if provided for information/ educational purposes only.) Specimen (Source)Anatomical Location / LateralityCollection Method / Volume Collection TimeReceived Time03/11/2021 Narrative Authorizing ProviderResult TypeResult StatusMona J Tao DOFEDERICO LABSFinal ResultPerforming OrganizationAddressCity/State/ZIP CodePhone Number [facility] from Last 3 Months or Most Recently Relevant to Health Maintenance Insurance Care Teams Team MemberRelationshipSpecialtyStart DateEnd Chaka Abernathy, MD [address] [place] [address] [facility]CP - [facility]22 Spencer Tyler DO [address] [place] [address] [facility]08/02/23 Vinny Huff, DO [address] [place] [address] Otolaryngology09/29/23 Vinny Huff, DO [address] [place] [address] Otolaryngology11/02/23
--- OUTSIDE RECORDS SUMMARY | 2025-05-01 16:05 | XMS_ITS | Clinical Summary ---
Author Organization [facility] Address [address] [place] [address] Care Team Providers Care Model Set Artist Name Role Phone Chaka Leonardo MD Primary Care Provider Allergies Active AllergyReactionsCriticalityNoted DateCommentsIron SucroseHives,Swelling 03/05/2014 Medications MedicationSigDispense QuantityRefillsLast FilledStart DateEnd DateStatus traMADol (ULTRAM) 50 mg tablet Take 50 mg by mouth as needed.Active ALPRAZolam (XANAX) 0.25 mg tablet Take 0.25 mg by mouth at bedtime as needed.07/18/2014ctive citalopram (CELEXA) 40 mg tablet Take 40 mg by mouth once daily.05/18/2016Active ergocalciferol, vitamin D2, (DRISDOL) 50,000 unit capsule Take 50,000 Units by mouth once each week. 05/25/2017Active HYDROcodone-acetaminophen (NORCO) 5-325 mg per tablet Take 5-325 tablets by mouth every 6 hours as needed.Active Active Problems ProblemNoted DateDiagnosed DateB12 qvfvsfxols73/08/2014Iron xpvpwnplki54/03/2014 Family History Medical HistoryRelationCommentsHypertensionFatherHypertensionMotherRelation StatusCommentsFatherMother Social History Tobacco UseTypesPacks/DayYears UsedDateSmoking Tobacco: NeverSmokeless Tobacco: NeverAlcohol UseStandard Drinks/WeekCommentsNo0 (1 standard drink = 0.6 oz pure alcohol)CommentsNoSex and Gender InformationValueDate RecordedSex Assigned at BirthNot on fileLegal XwgEiracl96/30/2014 4:21 PM EDTGender Identity Not on fileSexual OrientationNot on file Last Filed Vital Signs Vital SignReadingTime TakenCommentsBlood Bpkmlyto232/7405/27/2017 2:22 PM EST Fhemz598105/27/2017 2:22 PM RELAddivqkakzk32.7 ??C (98 ??F)05/27/2017 2:22 PM EST Respiratory Wvfr684005/27/2017 2:22 PM ESTOxygen Ewhkkvtcbe10%07/02/2014 11:15 AM ESTInhaled Oxygen Concentration--Hpfcfv56.3 kg (201 lb 4.8 oz)05/27/2017 2:22 PM JMDLmzaxg610.1 cm (5' 5 )05/27/2017 2:22 PM ESTBody Mass Index33.501 2:22 PM EST Plan of Treatment Health MaintenanceDue DateLast DoneCommentsAnxiety Rqpowulvh11/12/1988Depression Mqpwlavit52/12/1988HIV Xpwyzhrso64/12/1988Hepatitis C Qbjxkvxjk00/12/1988 DTaP,Tdap,Td Vaccine (1 - Tdap)1988Hepatitis B Vaccine (1 of 3 - 19+ 3- dose series)1988Cervical Cancer Pdhodytoc88/12/1991Mammogram Screening 2009CT Xijveyslwvql51/12/2015Cologuard (FIT-DNA)2014Colonoscopy 2014Colorectal Cancer Jldwbtwlk49/12/2015Fecal Occult Blood2014Lipid Lfpucpvkn77/12/8415Hdwmpnznvowbf61/12/2015Pneumococcal Vaccine: 50+ (1 of 1 - PCV)10/13/2019Shingrix Vaccine (1 of 2)10/13/2019Diabetes Tjyjspqaq85/25/2021 05/27/2017Covid-19 Vaccine (1 - 2024- season)2025Influenza Vaccine (#1) 2025RSV Vaccine (1 - 1-dose 75+ series)2044 Procedures Procedure NamePriorityDate/TimeAssociated DiagnosisCommentsCOMPREHENSIVE METABOLIC OELURWvoaynj70/25/2018 2:31 PM EST B12 deficiency Iron deficiency from Last 3 Months or Most Recently Relevant to Health Maintenance Results * (ABNORMAL) COMP METABOLIC PANEL (05/27/2017 2:31 PM EST)ComponentValueRef RangeTest MethodAnalysis TimePerformed AtPathologist SignatureProtein, Total 6.36.3 - 8.0 g/dL05/28/2017 4:14 AM [facility] LAB[facility]ATORYAlbumin 3.93.9 - 4.9 g/dL05/28/2017 4:14 AM [facility] LABORATORYCalcium 8.58.5 - 10.2 mg/dL05/28/2017 4:14 AM [facility] Bilirubin, Total0.30.2 - 1.3 mg/dL05/28/2017 4:14 AM [facility] LABORATORYAlkaline Fczeldnrfug708(H)32 - 117 U/L05/28/2017 4:14 AM EST [facility] RKIYNVNATQXAI3223 - 35 U/L05/28/2017 4:14 AM [facility] XOVPERMOFEVrbebsh95(L)74 - 99 mg/dL05/28/2017 4:14 AM [facility] LABORATORYComment: The [place] Diabetes Association (ADA) provides guidance for cutoff values for fasting glucose and random glucose. The ADA defines fasting as no caloric intake for at least 8 hours. Fasting plasma glucose results between 100 to 125 mg/dL indicate increased risk for diabetes (prediabetes). Fasting plasma glucose results greater than or equal to 126 mg/dL meet the criteria for diagnosis of diabetes. In the absence of unequivocal hyperglycemia, results should be confirmed by repeat testing. In a patient with classic symptoms of hyperglycemia or hyperglycemic crisis, random plasma glucose results greater than or equal to 200 mg/dL meet the criteria for diagnosis of diabetes. Reference: Standards of Medical Care in Diabetes 2016, [place] Diabetes Association. Diabetes Care. 2016.39(Suppl 1). YUS064 - 21 mg/dL05/28/2017 4:14 AM [facility] Creatinine0.860.58 - 0.96 mg/dL05/28/2017 4:14 AM [facility] AAPZWDRYMREztdva349(H)136 - 144 mmol/L05/28/2017 4:14 AM [facility] LABORATORYPotassium3.73.7 - 5.1 mmol/L05/28/2017 4:14 AM [facility] WYRIRHRZFHImejvhyy983(H)97 - 105 mmol/L05/28/2017 4:14 AM EST [facility] NVCAWNSNWRYF501(L)22 - 30 mmol/L05/28/2017 4:14 AM EST [facility] LABORATORYAnion Huh427 - 18 mmol/L05/28/2017 4:14 AM [facility] UBKPRWAGARSXK009 - 38 U/L05/28/2017 4:14 AM [facility] LABORATORYeGFR->60005/28/2017 4:14 AM [facility] LABORATORYeGFR-All Other Races>60.05/28/2017 4:14 AM [facility] LABORATORYComment: eGFR (Estimated GFR) Units of measure: mL/min/1.73 meters squared eGFR is derived from the reexpressed MDRD Study equation using the following parameters: serum creatinine, age, gender and race. The creatinine assay has been calibrated to be traceable to IDMS. An eGFR <60 mL/min/1.73m2 for >3 months is consistent with chronic kidney disease. Refer to KDOQI guidelines for clinical interpretation. In patients with unstable renal function, e.g. those with acute kidney injury, the eGFR may not accurately reflect actual GFR. Specimen (Source)Anatomical Location / LateralityCollection Method / Volume Collection TimeReceived TimeBlood specimen (specimen)BLOOD SPECIMEN / Unknown 05/27/2017 2:31 PM EST05/27/2017 2:33 PM EST Narrative Authorizing ProviderResult TypeResult StatusEllen BRISENO-CLABORATORYFinal ResultPerforming OrganizationAddressCity/State/ZIP CodePhone Number [facility] [address] [place] [address] from Last 3 Months or Most Recently Relevant to Health Maintenance Insurance Care Teams Team MemberRelationshipSpecialtyStart DateEnd Chaka Abernathy MD [address] [facility] [address] [place] [address] PCP - GeneralInternal Bhmbxryw86/30/14
[2025-05-01 16:55] LABS: Alanine Aminotransferase 29 U/L (14-59); Albumin Globulin Ratio 1.2; Albumin Level 3.8 g/dL (3.4-5.0); Alkaline Phosphatase 199 U/L (46-116); Anion Gap 13.4; Aspartate Amino Transferase 22 U/L (15-37); Blood Urea Nitrogen 18.0 mg/dL (7.0-18.0); Calcium 8.3 mg/dL (8.5-10.1); Carbon Dioxide 25.8 mmol/L (21.0-32.0); Chloride 108 mmol/L (98-107); Estimated GFR (African America 59 (>=60 mL/min/1.73m^2); Estimated GFR (Non-African Ame 49 (>=60 mL/min/1.73m^2); Globulin 3.3 g/dL; Glucose 101 mg/dL (74-106); Potassium 4.2 mmol/L (3.5-5.1); Sodium 143 mmol/L (136-145); Total Protein 7.1 g/dL (6.4-8.2)
[2025-05-04 15:08] LABS: Free Kappa Lt Chains,S 40.8 mg/L (3.3-19.4); Free Lambda Lt Chains,S 30.7 mg/L (5.7-26.3); Kappa/Lambda Ratio,S 1.33 (0.26-1.65)
== END 2025-05-01 15:55 | disposition home or self-care (01) ==
LOC: LAB 16:02
PROVIDERS: PCP Internal Medicine; Visit Provider Internal Medicine
DX: E50.9 Vitamin A deficiency, unspecified (principal); D50.8 Other iron deficiency anemias
CPT/HCPCS: 36415; 80053; 83521